=== PATIENT | female | born 1940 | race Caucasian/White ===

== ENCOUNTER 2022-12-13 14:24 | Emergency (ER) | payer MEDICARE, MEDICAID, SELFPAY ==
[2022-12-13 14:44] VITALS: BP 103/57; PULSE 73; RESP 16; TEMP 36.9; O2SAT 97; BMI 36.1
--- NOTE | 2022-12-13 17:19 | ED.GENADUL1 ---
HPI - General Adult General Stated complaint: constipation Time Seen by Provider: 12/13/22 17:07 Source: patient Mode of arrival: Wheelchair Limitations: no limitations History of Present Illness HPI narrative: Patient is a 82-year-old female who is here because a constipation for the past 4 days. Patient is doing nothing to help herself at home with constipation. Patient has no abdominal pain, pressure. Patient has no rectal pressure or pain. Patient has not had a bowel movement in 4 days. Patient states that she has been sitting on the toilet, using a hair clip to try and take out stool. Patient was told to absolutely not and never do that again. Patient was told that she could cut her rupture or vesicles, the anus and cause a significant amount of bleeding and potential . Patient was told that she can use fleets enemas, but did not use metal objects to help Dig out her stool Patient has no fever or chills. No chest pain or shortness of breath. No abdominal distention. No urinary complaints. Patient is literally here because she wants me to disimpact her when she has no pain to the rectal vault. Patient has multiple stool softeners at home to use and she is not using them for unknown reason. She knows that she should be hydrating and using prune juice and apple juice but does not. There is no indication for me to disimpact this patient, and this was told to her During HPI. . All systems are negative except as noted/marked. All systems reviewed and otherwise negative. . Nurses note and vital signs reviewed and patient is not hypoxic. General: The patient appears well and in no apparent distress. Patient is resting comfortably on cart. Patient is not toxic, lethargic, or listless Skin: Warm, dry, no pallor noted. There is no rash noted. No petechiae, purpura. Head: Normocephalic, atraumatic Eye: Normal conjunctiva, no drainage, EOMI. PERRL Ears, Nose, Mouth, and Throat: oral mucosa is moist. Cardiovascular: Regular Rate and Rhythm, no murmur, gallop, rub Respiratory: Patient is in no distress, no accessory muscle use, lungs are clear to auscultation, no wheezing, rales or rhonchi Back: non-tender, no CVA tenderness bilaterally to percussion. No CT LS midline pain GI: soft, obese, no tenderness to palpation, no masses appreciated. No rebound, guarding, or rigidity noted. No flank pain bilateral, No distention. Musculoskeletal: Patient has full range of motion of all of the extremities, no motor, sensory, or focal neurological deficits Neurological: A&O x3, normal speech Psychiatric: Cooperative Related Data Home Medications Medication Instructions Recorded Confirmed amlodipine 5 mg tablet 5 mg PO DAILY 12/13/22 12/13/22 levothyroxine 88 mcg tablet 88 mcg PO QDAY 12/13/22 12/13/22 simvastatin 20 mg tablet 20 mg PO DAILY 12/13/22 12/13/22 Allergies Allergy/AdvReac Type Severity Reaction Status Date / Time No Known Drug Allergies Allergy Verified 12/13/22 14:44 PFSH PFS Social History Smoking status: Never smoker Exam Constitutional Vital Signs, click to edit/add: Last Vital Signs Temp 98.4 F 12/13/22 14:44 Pulse 73 12/13/22 14:44 Resp 16 12/13/22 14:44 BP 103/57 12/13/22 14:44 Pulse Ox 97 12/13/22 14:44 O2 Del Method Room Air 12/13/22 14:44 Course Vital Signs Vital signs: Vital Signs Temperature 98.4 F 12/13/22 14:44 Pulse Rate 73 12/13/22 14:44 Respiratory Rate 16 12/13/22 14:44 Blood Pressure 103/57 12/13/22 14:44 Pulse Oximetry 97 12/13/22 14:44 Oxygen Delivery Method Room Air 12/13/22 14:44 Temperature 98.4 F 12/13/22 14:44 Pulse Rate 73 12/13/22 14:44 Respiratory Rate 16 12/13/22 14:44 Blood Pressure 103/57 12/13/22 14:44 Pulse Oximetry 97 12/13/22 14:44 Oxygen Delivery Method Room Air 12/13/22 14:44 Medical Decision Making MDM Narrative Medical decision making narrative: Patient's abdominal x-ray shows moderate stool burning, no free air, air-fluid levels, or obstruction. Patient does not have a significant amount of stool in the rectal vault. Patient was educated at length on increasing fluids, using stool softeners at home that she already hasthat she should be doing. Patient was educated there is no indication emergently to try to disimpact her or do a soapsuds enema because she has no pain, no rectal pain or pressure. Patient then asked me if she wants me for her to lie and tell me that she has pain to that we will disimpact her or enema her. I told the patient has a knot, explained to her emergencies in the appropriate use of the emergency room. Patient is told that she can was return but there is no indication to perform any emergent procedure on her. Patient wheeze MiraLAX twice a day and one or 2 bottles of mineral oil or magnesium citrate. Patient is use medication she has at home. Patient understands this clearly, no questions at discharge. Discharge Plan Discharge Clinical Impression: Constipation Patient Disposition: Home, Self-Care Condition: Good Prescriptions / Home Meds: No Action levothyroxine 88 mcg tablet 88 mcg PO QDAY amlodipine 5 mg tablet 5 mg PO DAILY simvastatin 20 mg tablet 20 mg PO DAILY Instructions: Constipation (ED) Additional Instructions: You have multiple [id number] products to use, you need to use them for constipation. For the next 2 or 3 days, drink MiraLAX twice a day, use one or 2 bottles of either of magnesium citrate or mineral oil daily to help with bowel movements. Use fleets enemas daily if needed. After you have good relief of your bowels, start using MiraLAX every other day, increase fluids, help maintain soft stool so they do not have symptoms of constipation. You have no emergent condition or reason to try to disimpact you or receive enema. You need to do daily treatments at home to avoid constipation in the future Stand Alone Forms: Portal Instructions Referrals: CATERINA BAKER [Primary Care Provider] - 1 week Discharge Date/Time: 12/13/22 19:06
--- NOTE | 2022-12-13 17:21 | XR_ITS ---
The [address] [address] Patient Name: GOGO CAREY MRN: [id number] date: 1940 Sex: F Assigned Patient Location: ER Current Patient Location: ED.MAIN Accession/Order Number: [id number] Exam Date: 12/13/2022 17:31 Report Date: 12/13/2022 18:34 At the request of: JUAN C HARVEY Procedure: XR abdomen min 2V EXAM: XR abdomen min 2V HISTORY: constipation COMPARISON: None. TECHNIQUE: Abdominal X-ray, 1 view FINDINGS: Support devices: None. Bowel: Unremarkable bowel gas pattern. No bowel dilatation. Stool is seen throughout the colon, representing constipation. Additional findings: None. XR/XR abdomen min 2V IMPRESSION: No acute abnormality on radiographic exam. Constipation. Electronically authenticated by: NANETTE WILLIAM Date: 12/13/2022 18:34
== END 2022-12-13 19:06 | disposition home or self-care (01) ==
PROVIDERS: Emergency Provider Emergency Medicine; PCP Nurse Practitioner Family
DX: K59.00 Constipation, unspecified (principal); Z79.899 Other long term (current) drug therapy; Z79.890 Hormone replacement therapy
CPT/HCPCS: 74019; 99283

== ENCOUNTER 2023-03-22 15:09 | Emergency (ER) | payer MEDICARE, MEDICAID, SELFPAY ==
[2023-03-22 15:19] VITALS: BP 139/94; PULSE 73; RESP 18; TEMP 36.4; O2SAT 96; BMI 33.2
--- NOTE | 2023-03-22 15:26 | PC.NURSE ---
RED NON-RAISED RASH TO TORSO AND BUE THAT IS ITCHY. PT STATES HAS HAD THIS RASH FOR 1 YEAR AND WAS PUT ON A PILL BY HER PCP 1 MONTH AGO FOR RASH BUT THE PILL IS NOT HELPING
--- NOTE | 2023-03-22 15:31 | ED.SKABFB1 ---
HPI - Skin/Abscess/Foreign Bdy General Chief complaint: Skin/Abscess/Foreign Body Stated complaint: rash Time Seen by Provider: 03/22/23 15:15 Source: patient Mode of arrival: Wheelchair Limitations: no limitations History of Present Illness HPI narrative: patient is an 82-year-old female who presents to the emergency department for a one year history of rash. Patient states initially the rash began on her legs, she currently complains mostly of rash to the trunk, abdomen, groin. She was seen by her PCP one month ago for this rash and was prescribed antihistamines for itching. She presents to the Emergency Room today because she states she cannot take the rash any longer, she takes trazodone to help her sleep but states she is having difficulty sleeping due to the itching. There has been no fevers, drainage from the rash. She has no other focal medical complaints. Related Data Home Medications Medication Instructions Recorded Confirmed amlodipine 5 mg tablet 5 mg PO DAILY 12/13/22 12/13/22 levothyroxine 88 mcg tablet 88 mcg PO QDAY 12/13/22 12/13/22 simvastatin 20 mg tablet 20 mg PO DAILY 12/13/22 12/13/22 Previous Rx's Medication Instructions Recorded permethrin 5 % topical cream 1 applic topical ONCE 1 dose #60 03/22/23 grams prednisone 20 mg tablet See Rx Instructions .Route 03/22/23 .COMPLEX #12 tabs Allergies Allergy/AdvReac Type Severity Reaction Status Date / Time No Known Drug Allergies Allergy Verified 03/22/23 15:19 Review of Systems ROS Constitutional Denies: fever or chills Cardiovascular Denies: chest pain Respiratory Denies: shortness of breath or cough Gastrointestinal Denies: nausea or vomiting Musculoskeletal Denies: back pain Integumentary/Breast Reports: rash and itching Neurological Denies: headache Allergic/Immunologic Denies: hives PFSH PFS Social History Smoking status: Never smoker Exam Narrative Exam Narrative: Gen.: Awake, alert, in no distress Head: Normocephalic, atraumatic ENT: Moist mucous membranes Respiratory: No respiratory distress Extremities: Moves extremities equally Psych: Normal mood and affect Neuro: No focal neuro deficit Skin: Warm, dry, excoriated rash noted over the trunk, abdomen, back. No areas of abscess, drainage or concern for cellulitis. No vesicles or crusting, no petechiae or purpura. No extension of the rash to the palms of the hands, mucous membranes. Constitutional Vital Signs, click to edit/add: Last Vital Signs Temp 97.5 F L 03/22/23 15:19 Pulse 73 03/22/23 15:19 Resp 18 03/22/23 15:19 BP 139/94 H 03/22/23 15:19 Pulse Ox 96 03/22/23 15:19 O2 Del Method Room Air 03/22/23 15:19 Course Vital Signs Vital signs: Vital Signs Temperature 97.5 F L 03/22/23 15:19 Pulse Rate 73 03/22/23 15:19 Respiratory Rate 18 03/22/23 15:19 Blood Pressure 139/94 H 03/22/23 15:19 Pulse Oximetry 96 03/22/23 15:19 Oxygen Delivery Method Room Air 03/22/23 15:19 Temperature 97.5 F L 03/22/23 15:19 Pulse Rate 73 03/22/23 15:19 Respiratory Rate 18 03/22/23 15:19 Blood Pressure 139/94 H 03/22/23 15:19 Pulse Oximetry 96 03/22/23 15:19 Oxygen Delivery Method Room Air 03/22/23 15:19 MDM - Skin/Abscess/Foreign Bdy MDM Narrative Medical decision making narrative: patient with an intensely pruritic rash for one year that is excoriated over the trunk, consistent with scabies. There is no evidence of secondary infection. Patient started on prednisone, permethrin. Continue hydroxyzine that was prescribed by PCP and return to the Emergency Room if symptoms change or worsen. Vital signs unremarkable. No indication for antibiotics at this time. Medical Records Attestation: I reviewed the patient's medical records. Discharge Plan Discharge Chief Complaint: Skin/Abscess/Foreign Body Clinical Impression: Skin rash Patient Disposition: Home, Self-Care Time of Disposition Decision: 15:29 Condition: Good Mode of Transportation: Private Vehicle Prescriptions / Home Meds: New prednisone 20 mg tablet See Rx Instructions .ROUTE .COMPLEX Qty: 12 0RF Rx Instructions: 3 tabs daily for 2 days, then 2 tabs daily for 2 days, then 1 tab daily for 2 days permethrin 5 % cream 1 applic topical ONCE Qty: 60 0RF Rx Instructions: Apply to skin and wash off after 8-10 hours No Action levothyroxine 88 mcg tablet 88 mcg PO QDAY amlodipine 5 mg tablet 5 mg PO DAILY simvastatin 20 mg tablet 20 mg PO DAILY Instructions: Acute Rash (ED) Stand Alone Forms: Portal Instructions Referrals: CATERINA BAKER [Primary Care Provider] - 1 week Discharge Date/Time: 03/22/23 15:56
[2023-03-22] MEDS: METHYLPREDNISOLONE SOD SUCC PF 125 MG/2 ML VIAL IM (15:51)
== END 2023-03-22 15:56 | disposition home or self-care (01) ==
PROVIDERS: Emergency Provider Emergency Medicine; PCP Nurse Practitioner Family
DX: R21 Rash and other nonspecific skin eruption (principal); Z79.899 Other long term (current) drug therapy; Z79.890 Hormone replacement therapy
CPT/HCPCS: 96372; 99284; J2930

== ENCOUNTER 2023-06-12 13:52 | Outpatient (OUT) | payer MEDICARE, MEDICAID, SELFPAY ==
[2023-06-12 15:12] LABS: Free T4 0.52 ng/dL (0.76-1.46)
== END 2023-06-12 13:53 | disposition home or self-care (01) ==
LOC: LAB 13:54
PROVIDERS: PCP Nurse Practitioner Family; Visit Provider Nurse Practitioner Family
DX: R94.6 Abnormal results of thyroid function studies (principal)
CPT/HCPCS: 36415; 84439; 84443

== ENCOUNTER 2023-08-04 13:11 | Outpatient (OUT) | payer MEDICARE, MEDICAID, SELFPAY ==
[2023-08-04 15:02] LABS: Free T4 0.73 ng/dL (0.76-1.46)
[2023-08-04 15:34] LABS: Free T3 1.67 pg/mL (2.18-3.98); Thyroid Stimulating Hormone 10.639 uIU/mL (0.358-3.740)
== END 2023-08-04 13:12 | disposition home or self-care (01) ==
LOC: LAB 13:14
PROVIDERS: PCP Nurse Practitioner Family; Visit Provider Nurse Practitioner Family
DX: E07.9 Disorder of thyroid, unspecified (principal)
CPT/HCPCS: 36415; 84439; 84443; 84481

== ENCOUNTER 2023-10-24 14:05 | Outpatient (OUT) | payer MEDICARE, MEDICAID, SELFPAY ==
--- OUTSIDE RECORDS SUMMARY | 2023-10-24 14:22 | XMS_ITS | CCD ---
Author Organization [facility] Care Team Providers Care Floatman Name Role Phone PHYSICIAN, DEFAULT Unavailable Unavailable PHYSICIAN, DEFAULT Unavailable Unavailable PHYSICIAN, DEFAULT Unavailable Unavailable PHYSICIAN, DEFAULT Unavailable Unavailable RAMINENI, ROSE K Unavailable Unavailable RAMINENI, ROSE K Unavailable Unavailable UNKNOWN, PHYSICIAN Unavailable Unavailable UNKNOWN, PHYSICIAN Unavailable Unavailable RAMINENI, ROSE K Unavailable Unavailable RAMINENI, ROSE K Unavailable Unavailable UNKNOWN, PHYSICIAN Unavailable Unavailable UNKNOWN, PHYSICIAN Unavailable Unavailable ID Unavailable Unavailable RAMINENI, ROSE K Unavailable Unavailable RAMINENI, ROSE K Unavailable Unavailable RAMINENI, ROSE K Unavailable Unavailable UNKNOWN, PHYSICIAN Unavailable Unavailable UNKNOWN, PHYSICIAN Unavailable Unavailable LAURA Baker Adela Belkys Primary Care Provider LAURA Baker Adelakayley Rizvi Referring Provider MD Lukas Fried Attending Provider [phone] DO Jay Carvajal Emergency Provider ADELA Navarrete Primary Care Unavailable RADHA MUNIZ Admitting Unavailable RADHA MUNIZ Attending Unavailable RADHA MUNIZ Consulting Unavailable LUKAS HENRY Consulting Unavailable OLIVIA, ADELA Admitting Unavailable ADELA BAKER Attending Unavailable ADELA BAKER Consulting Unavailable OLIVIA, ADELA Primary Care Unavailable DR ALISA ORELLANA Attending Unavailable BLANCA MCCORMICK Consulting Unavailab whit BAKER ADELA Primary Care Unavailable DR ALISA ORELLANA Admitting Unavailable HECTOR GONZALEZ Consulting Unavailable LAURA Baker Primary Care Provider DO Juan Henao Emergency Provider LAURA Baker Adela Belkys Primary Care Provider DO Jay Carvajal Emergency Provider DO Juan Bruno Emergency Provider LAURA Baker Adela Belkys Primary Care Provider [phone]( [phone] DO Juan Henao Emergency Provider DO Camille Dennison Emergency Provider MD Carine Montoya Attending Provider [phone] LAURA Baker Adela Belkys Primary Care Provider [phone] MD Ashleigh Jackson Emergency Provider Carine Montoya Admitting Unavailable Carine Montoya Attending Unavailable Olivia, Adela Belkys Primary Care Unavailable Olivia, Adela Belkys Primary Care Unavailable Jay Carvajal Admitting Unavailable Jay Carvajal Attending Unavailable Olivia, Adela Belkys Primary Care Unavailable TuJuan smith Admitting Unavailable Juan Henao Attending Unavailable Olivia, Adela Belkys Primary Care Unavailable Camille Dennison Admitting Unavailable Camille Dennison Attending Unavailable Jay Carvajal Admitting Unavailable Jay Carvajal Attending Unavailable Olivia, Adela Belkys Primary Care Unavailable Olivia, Adela Belkys Primary Care Unavailable Ashleigh Jackson Admitting Unavailable Ashleigh Jackson Attending Unavailable Juan Kay Admitting Unavailable Juan Kay Attending Unavailable Olivia, Adela Belkys Primary Care Unavailable TuJuan smith Admitting Unavailable Juan Henao Attending Unavailable Olivia, Adela Belkys Primary Care Unavailable Allergies Allergy Classification Reported Allergen(s) Allergy Type Date of Onset Reaction(s) Facility (1 source) NO KNOWN DRUG ALLERGIES; Translations: [NO KNOWN DRUG ALLERGIES] Propensity to adverse reactions (disorder) 7 [facility] Repository (1 source) No Known Allergies; Translations: [No Known Allergies] Propensity to adverse reactions (disorder) [facility] Repository (6 sources) oxyCODONE; Translations: [oxycodone] Drug Allergy 7 [facility] (1 source) Acetaminophen / oxyCODONE Drug Allergy [facility] Repository Medications Current Medications Medication Drug Class(es) Dates Sig (Normalized) Sig (Original) amoxicillin 875 mg / clavulanate 125 mg oral tablet (5 sources) Penicillin-class Antibacterial Start: 10-11-2022 take 1 tablet by mouth twice daily Amoxicillin-Pot Clavulanate Active 1 TAB PO Twice daily October 10, 2022 11:00pm docusate sodium 100 mg oral capsule (7 sources) Start: 08-18-2022 take 1 capsule by mouth twice daily Docusate Sodium (Colace) 100 mg capsule Active 100 MG PO Twice daily 14 June 30, 2023 12:00am DULoxetine 60 mg delayed release oral capsule (7 sources) Serotonin and Norepinephrine Reuptake Inhibitor Start: 01-20-2017 take 60 mg by mouth once daily Duloxetine Active 60 MG PO Daily January 19, 2017 11:00pm hydrOXYzine hydrochloride 25 mg oral tablet (3 sources) Antihistamine Start: 05-07-2023 take 25 mg by mouth every eight hours Hydroxyzine Hcl Active 25 MG PO Q8H May 07, 2023 12:00am levothyroxine sodium 0.088 mg oral tablet (7 sources) l-Thyroxine Start: 01-20-2017 take 88 ug by mouth once daily Levothyroxine Active 88 MCG PO Daily January 19, 2017 11:00pm meloxicam 15 mg oral tablet (7 sources) Nonsteroidal Anti-inflammatory Drug Start: 01-20-2017 take 15 mg by mouth once daily Meloxicam Active 15 MG PO Daily January 19, 2017 11:00pm Mineral Oil (4 sources) Start: 12-16-2022 take 1 mL by mouth once daily Mineral Oil Active 15 ML PO Daily 1200 December 15, 2022 11:00pm Start: 12-16-2022 take 1 mL by mouth once daily Mineral Oil Active 15 ML PO Daily 1200 December 16, 2022 12:00am polyethylene glycol 3350 07116 mg powder for oral solution (17 sources) Osmotic Laxative Start: 08-18-2022 Polyethylene Glycol 3350 (Miralax) 17 gram powder in packet Active 17 GM PO Daily 30 May 07, 2023 12:00am predniSONE 20 mg oral tablet (7 sources) Start: 02-01-2017 take 60 mg by mouth once daily at mealtime Prednisone Active 60 MG PO Daily 15 January 31, 2017 11:00pm administer with food or milk Psyllium Husk (Metamucil) 0.4 gram capsule (6 sources) Start: 08-18-2022 Psyllium Husk (Metamucil) 0.4 gram capsule Active 0.4 GM PO Daily August 17, 2022 11:00pm Start: 08-18-2022 Psyllium Husk (Metamucil) 0.4 gram capsule Active 0.4 GM PO Daily August 18, 2022 12:00am Sennosides (Senna) 8.6 mg capsule (1 source) Start: 06-30-2023 take 1 capsule by mouth twice daily Sennosides (Senna) 8.6 mg capsule Active 8.6 MG PO Twice daily 22 11June 30, 2023 12:00am simvastatin 40 mg oral tablet (7 sources) HMG-CoA Reductase Inhibitor Start: 01-20-2017 take 40 mg by mouth once daily Simvastatin Active 40 MG PO Daily January 19, 2017 11:00pm traMADol hydrochloride 50 mg oral tablet (7 sources) Opioid Agonist Start: 01-20-2017 Tramadol Activ e 0.5 TAB PO EVERY 1-4 HOURS January 19, 2017 11:00pm Problems Active Problems Problem Classification Problem Date Documented Da te Episodic/Chronic Abdominal pain (1 source) Unspecified abdominal pain; Translations: [Unspecified abdominal pain] Onset: 07-18-2023 Episodic Anxiety disorders (3 sources) Anxiety; Translations: [Anxiety disorder, unspecified] 05-07-2023 Chronic Disorders of lipid metabolism (1 source) Hyperlipidemia, unspecified; Translations: [HYPERLIPIDEMIA UNSPECIFIED] Onset: 10-04-2021 Chronic Essential hypertension (1 source) Essential (primary) hypertension; Translations: [ESSENTIAL (PRIMARY) HYPERTENSION] Onset: 01-15-2017 Chronic Gout and other crystal arthropathies (7 sources) Articular gout; 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, 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 Intestinal obstruction without hernia (11 sources) Fecal impaction; Translations: [Fecal impaction] Onset: 07-22-2022 08-18-2022 Episodic Menopausal disorders (1 source) Hormone replacement therapy; Translations: [HORMONE REPLACEMENT THERAPY] Onset: 09-18-2022 Episodic Osteoarthritis (3 sources) Primary osteoarthritis, right shoulder; Translations: [PRIMARY OSTEOARTHRITIS, RIGHT SHOULDER] Onset: 01-21-2017 Chronic Other aftercare (1 source) Other intermediate (current) drug therapy; Translations: [OTH CAFETERIA HELPER CURRENT DRUG THERAPY] Onset: 09-18-2022 Episodic Other bone disease and musculoskeletal deformities (1 source) Other osteonecrosis, right shoulder; Translations: [OTHER OSTEONECROSIS, RIGHT SHOULDER] Onset: 01-21-2017 Chronic Other connective tissue disease (1 source) Presence of right artificial shoulder joint; Translations: [PRESENCE OF RIGHT ARTIFICIAL SHOULDER JOINT] Onset: 10-01-2017 Chronic Other gastrointestinal disorders (11 sources) Constipation; Translations: [Constipation, unspecified] 08-18-2022 Episodic Other gastrointestinal disorders (3 sources) Chronic constipation; Translations: [Other constipation] 05-07-2023 Episodic Other inflammatory condition of skin (3 sources) Itching ; Translations: [Pruritus, unspecified] 05-07-2023 Episodic Other lower respiratory disease (1 source) Shortness of breath; Translations: [Shortness of breath] Onset: 05-07-2023 Episodic Other skin disorders (3 sources) Eruption; Translations: [Rash and other nonspecific skin eruption] 05-07-2023 Episodic Other skin disorders (1 source) Rash and other nonspecific skin eruption; Translations: [Rash and other nonspecific skin eruption] Onset: 05-28-2023 Episodic Residual codes; unclassified (3 sources) Difficulty sleeping ; Translations: [Sleep disorder, unspecified] 05-07-2023 Episodic Skin and subcutaneous tissue infections (5 sources) Cellulitis; Translations: [Cellulitis, unspecified] 10-11-2022 Episodic Sprains and strains (15 sources) Strain of muscle(s) and tendon(s) of the rotator cuff of right shoulder, subsequent encounter; Translations: [Strain of muscle(s) and tendon(s) of the rotator cuff of right shoulder, initial encounter] Onset: 01-15-2017 01-20-2017 Episodic Unclassified (2 sources) Unknown / UNK(Unknown) Onset: 01-15-2017 Unclassified (1 source) Abrasion of right forearm, initial encounter; Translations: [Abrasion of right forearm, initial encounter] Onset: 10-11-2022 Past or Other Problems Problem Classification Problem Date Documented Da te Episodic/Chronic Deficiency and other anemia (1 source) Anemia, unspecified; Translations: [ANEMIA UNSPECIFIED] Onset: 10-04-2021 Episodic Diabetes mellitus without complication (1 source) Other abnormal glucose; Translations: [OTHER ABNORMAL GLUCOSE] Onset: 10-04-2021 Episodic Other connective tissue disease (1 source) Unspecified rotator cuff tear or rupture of right shoulder, not specified as traumatic; Translations: [UNSP ROTATR-CUFF TEAR/RUPTR OF RIGHT SHOULDER, NOT TRAUMA] Onset: 01-21-2017 Episodic Other gastrointestinal disorders (5 sources) Constipation, unspecified; Translations: [CONSTIPATION UNSPECIFIED] Onset: 09-16-2022 Episodic Thyroid disorders (4 sources) Disorder of thyroid, unspecified; Translations: [DISORDER OF THYROID UNSPECIFIED] Onset: 10-01-2021 Episodic Results Test Name Value Interpretation Reference Range Facility XR KUBon 07-19-2023 XR KUB [facility] [place] [address] [place] [address] XRay Report Signed Patient: Gogo Carey MR#: [id number] 05 : 1940 Acct:[id number] Age/Sex: 82 / F ADM Date: 07/18/23 Loc: ER Room: Type: [facility] ER Attending Dr: Copies to: Juan Kay DO Ordering Provider: Juan Kay DO Date of Service: 07/18/23 XR/XR KUB: Abdominal Pain KUB: COMPARISON: 03/02/2023 CLINICAL DATA: Constipation. Supine views of the abdomen and pelvis were obtained. There is air within the stomach. There is air and moderate stool within the colon. No dilated small bowel loops are present. No soft tissue masses are seen. There is reverse S-shaped scoliotic curvature with degenerative changes of the spine. There is sclerosis at the SI joints. XR/XR KUB IMPRESSION: MODERATE COLONIC STOOL COMPATIBLE WITH CONSTIPATION. Impression dictated by: Noelle Pagan M.D.07/19/2023 8:14 AM Dictation Location: [place] [address] Transcribed By: [facility] 07/19/23813 Dictated By: Noelle Pagan MD 07/19/23811 Signed By: 07/19/23813 Normal [facility] Complete Blood Count Auto Di ffon 07-18-2023 Basophils (Bld) [#/Vol] 0.0 10*3/uL Normal 0.0-0.2 [facility] Comment on above: Result Comment: PERF ORMED BY: [place] [address] PATHOLOGIST TERRAZZO TILE MAKER FELICITAS BRINK M.D. Performed By: #### C BC #### [address] Basophils/100 WBC (Bld) 0.3 % Normal . [facility] Comment on above: Performed By: #### C BC #### [address] Eosinophils (Bld) [#/Vol] 0.1 10*3/uL Normal 0.0-0.45 [facility] Comment on above: Performed By: #### C BC #### [address] Eosinophils/100 WBC (Bld) 1.9 % Normal . [facility] Comment on above: Performed By: #### C BC #### [address] Erythrocyte distribution width (RBC) [Ratio] 14.1 % Normal 11.9-15.3 [facility] Comment on above: Performed By: #### C BC #### [address] Hematocrit (Bld) [Volume fraction] 44.7 % Normal 34.0-46.4 [facility] Comment on above: Performed By: #### C BC #### [address] Hemoglobin (Bld) [Mass/Vol] 14.9 g/dL Normal 11.8-15.4 [facility] Comment on above: Performed By: #### C BC #### [address] Lymphocytes (Bld) [#/Vol] 1.3 10*3/uL Normal 1.00-4.8 [facility] Comment on above: Performed By: #### C BC #### [place] [address] [place] Lymphocytes/100 WBC (Bld) 18.7 % Normal . [facility] Comment on above: Performed By: #### C BC #### [facility] [address] MCH (RBC) [Entitic mass] 30.2 pg Normal 24.7-34.3 [facility] Comment on above: Performed By: #### C BC #### [facility] [address] MCV (RBC) [Entitic vol] 90.6 fL Normal 80-100 [facility] Comment on above: Performed By: #### C BC #### [address] Mean Corpuscular HGB Conc 33.3 g/dL Normal 32.0-35.0 [facility] Comment on above: Performed By: #### C BC #### [address] Monocytes (Bld) [#/Vol] 0.6 10*3/uL Normal 0.0-0.8 [facility] Comment on above: Performed By: #### C BC #### [address] Monocytes/100 WBC (Bld) 17.30 % Normal 0.00-20.00 [facility] Comment on above: Performed By: #### C BC #### [address] Monocytes/100 WBC (Bld) 8.5 % Normal . [facility] Comment on above: Performed By: #### C BC #### [place] [address] [place] Neutrophils (Bld) [#/Vol] 4.9 10*3/uL Normal 1.8-7.7 [facility] Comment on above: Performed By: #### C BC #### [address] Neutrophils/100 WBC (Bld) 70.6 % Normal . [facility] Comment on above: Performed By: #### C BC #### [facility] [address] NRBC% 0.0 /100{WBC} Normal 0-0.5 [facility] Comment on above: Performed By: #### C BC #### [facility] [address] Platelet mean volume (Bld) [Entitic vol] 8.3 fL Normal 6.3-10.7 [facility] Comment on above: Performed By: #### C BC #### [facility] [address] Platelets (Bld) [#/Vol] 289 10*3/uL Normal 150-450 [facility] Comment on above: Performed By: #### C BC #### [facility] [address] RBC (Bld) [#/Vol] 4.93 10*6/uL Normal 3.60-5.00 [facility] Comment on above: Performed By: #### C BC #### [address] WBC (Bld) [#/Vol] 6.9 10*3/uL Normal 3.8-11.6 [facility] Comment on above: Performed By: #### C BC #### [address] Comprehensive Metabolic Pane jeremiah 07-18-2023 Albumin [Mass/Vol] 4.1 g/dL Normal 3.5-5.7 [facility] Comment on above: Performed By: #### C MP, LIPASE ####[address] Albumin/Globulin [Mass ratio] 1.2 {ratio} Normal [facility] Comment on above: Performed By: #### C MP, LIPASE ####[address] ALP [Catalytic activity/Vol] 68 U/L Normal 34-104 [facility] Comment on above: Performed By: #### C MP, LIPASE ####[facility] [place] [address] [facility] ALT [Catalytic activity/Vol] 10 U/L Normal 7-52 [facility] Comment on above: Performed By: #### C MP, LIPASE ####[facility] [place] [address] [facility] Anion gap [Moles/Vol] 10.2 mmol/L Normal 6.0-15.0 [facility] Comment on above: Performed By: #### C MP, LIPASE ####[place] [address] [place] [address] [facility] AST [Catalytic activity/Vol] 16 U/L Normal 13-39 [facility] Comment on above: Performed By: #### C MP, LIPASE ####[place] [address] [place] [address] [facility] Bilirubin [Mass/Vol] 0.5 mg/dL Normal 0.3-1.0 [facility] Comment on above: Performed By: #### C MP, LIPASE ####[place] [address] [place] [address] [facility] Calcium [Mass/Vol] 9.5 mg/dL Normal 8.6-10.3 [facility] Comment on above: Performed By: #### C MP, LIPASE ####[address] [address] [facility] Chloride [Moles/Vol] 106 mmol/L Normal 98-107 [facility] Comment on above: Performed By: #### C MP, LIPASE ####[place] [address] [place] [address] [facility] CO2 [Moles/Vol] 27.0 mmol/L Normal 21.0-31.0 [facility] Comment on above: Performed By: #### C MP, LIPASE ####[address] [address] [facility] Creatinine [Mass/Vol] 0.95 mg/dL Normal 0.60-1.20 [facility] Comment on above: Performed By: #### C MP, LIPASE ####[address] [place] [address] [facility] Creatinine Clr Calc Pharmacy 43.89 [facility] Comment on above: Performed By: #### C MP, LIPASE ####[place] [id number] [facility] GFR/1.73 sq M.predicted MDRD (S/P/Bld) [Vol rate/Area] mL/min/{1.73_m2} [facility] Comment on above: Performed By: #### C MP, LIPASE ####[address] Globulin (S) [Mass/Vol] 3.3 g/dL [facility] Comment on above: Performed By: #### C MP, LIPASE ####[address] Glucose [Mass/Vol] 114 mg/dL High 70-100 [facility] Comment on above: Result Comment: [facility] Glucose Reference Range is dependent on time and content of last meal. Glucose of more than 200 mg/dL in a nonstressed, ambulatory subject supports the diagnosis of Diabetes Mellitus. ADA recommended reference range Performed By: #### C MP, LIPASE ####[place] [id number] [facility] Potassium [Moles/Vol] 4.2 mmol/L Normal 3.5-5.1 [facility] Comment on above: Performed By: #### C MP, LIPASE ####[place] [id number] [facility] Protein [Mass/Vol] 7.4 g/dL Normal 6.4-8.9 [facility] Comment on above: Performed By: #### C MP, LIPASE ####[place] [id number] [facility] Sodium [Moles/Vol] 139 mmol/L Normal 136-145 [facility] Comment on above: Performed By: #### C MP, LIPASE ####[address] Urea nitrogen [Mass/Vol] 15 mg/dL Normal 7-25 [facility] Comment on above: Performed By: #### C MP, LIPASE ####[facility] [id number] [place] [id number] [facility] ECG 12 lead ECGon 07-18-2023 ECG 12 lead ECG [facility] [place] [address] [place] [address] Electrocardiograph Report Signed Patient: Gogo Carey MR#: [id number] 05 : 1940 Acct:[id number] Age/Sex: 82 / F ADM Date: 07/18/23 Loc: ER Room: Type: [facility] ER Attending Dr: Ordering Provider: Brittany Agustin APRN Date of Service: 07/18/2301/02/1602 ECG/ECG 12 lead ECG: Abdominal Pain Copies to: Test Reason : Blood Pressure : / mmHG Vent. Rate : 070 BPM Atrial Rate : 070 BPM P-R Int : 166 ms QRS Dur : 090 ms QT Int : 422 ms P-R-T Axes : -12 -84 -06 degrees QTc Int : 455 ms Sinus rhythm with marked sinus arrhythmia Left axis deviation RSR' or QR pattern in V1 suggests right ventricular conduction delay Possible Lateral infarct (cited on or before 18-JUL-2023) Inferior infarct (cited on or before 18-JUL-2023) Abnormal ECG When compared with ECG of 07-MAY-2023 15:47, premature ventricular complexes are no longer present Vent. rate has decreased BY 34 BPM Nonspecific T wave abnormality, improved in Anterior leads Confirmed by JUAN KAY DO ([id number]) on 07/19/2023 1:53:48 AM Referred By: Electronically Signed By:JUAN KAY DO Transcribed By: MUS Signed By Juan Kay DO 07/18 0154 Normal [facility] Lipaseon 07-18-2023 Lipase [Catalytic activity/Vol] 37.0 U/L Normal 11.0-82.0 [facility] Comment on above: Result Comment: PERF ORMED BY: [place] [address] PATHOLOGIST TERRAZZO TILE MAKER FELICITAS BRINK M.D. Performed By: #### C MP, LIPASE ####[facility] [id number] [place] [address] [place] Alanine aminotransferase [En zymatic activity/volume] in Serum or PlasmaOrdered By: Ashleigh Jackson on 06-30-2023 ALT [Catalytic activity/Vol] 11 U/L Normal 7-52 [facility] Comment on above: Performed By: #### C MP, LIPASE #### [facility] [address] [place] [address] [place] Albumin [Mass/volume] in Ser um or Plasma by Bromocresol green (BCG) dye binding methoOrdered By: Ashleigh Jackson on 06-30-2023 Albumin BCG dye [Mass/Vol] 4.0 g/dL 3.5-5.7 [facility] Alkaline phosphatase [Enzyma tic activity/volume] in Serum or PlasmaOrdered By: Ashleigh Jackson on 06-30-2023 ALP [Catalytic activity/Vol] 67 U/L Normal 34-104 [facility] Comment on above: Performed By: #### C MP, LIPASE #### [facility] [address] [place] [address] [place] Aspartate aminotransferase [ Enzymatic activity/volume] in Serum or PlasmaOrdered By: Ashleigh Jackson on 06-30-2023 AST [Catalytic activity/Vol] 19 U/L 13-39 [facility] Basophils Auto (Bld) [#/Vol] Ordered By: Ashleigh Jackson on 06-30-2023 Basophils (Bld) [#/Vol] 0.0 10*3/uL 0.0-0.2 [facility] Basophils/100 WBC Auto (Bld) Ordered By: Ashleigh Jackson on 06-30-2023 Basophils/100 WBC (Bld) 0.5 % . [facility] Bilirubin Test strip Ql (U)O rdered By: Ashleigh Jackson on 06-30-2023 Bilirubin Ql (U) Negative Negative [facility] Bilirubin.total [Mass/volume ] in Serum or PlasmaOrdered By: Ashleigh Jackson on 06-30-2023 Bilirubin [Mass/Vol] 0.6 mg/dL Normal 0.3-1.0 [facility] Comment on above: Performed By: #### C MP, LIPASE #### [facility] [address] [place] [id number] [facility] CT abdomen pelvis w conon CT abdomen pelvis w con [facility] [place] [address] [place] [address] CT Scan Report Signed Patient: Gogo Carey MR#: [id number] 05 : 1940 Acct:[id number] Age/Sex: 82 / F ADM Date: 06/30/23 Loc: ER Room: Type: [facility] ER Attending Dr: Copies to: Ashleigh Jackson MD Ordering Provider: Ashleigh Jackson MD Date of Service: 06/30/23 CT/CT abdomen pelvis w con: L sided tenderness, r/o SBO CT Abdomen and Pelvis withcontrast TECHNIQUE: Axial imaging with 2-D reconstruction.90 cc of Isovue-300. The CT exam was performed using one or more the following dose reduction techniques: Automated exposure control, adjustment of the MA and/or Kv according to patient size, or use of the iterative reconstruction technique. COMPARISON: None History: Constipation for 3 1/2 weeks. LIMITATIONS: None LOWER THORAX small pericardial effusion. Unremarkable lung bases. LIVER: Mild hepatic steatosis. No focal hepatic lesion. GALLBLADDER: No gallbladder abnormality identified. BILE DUCTS: No dilatation SPLEEN: Unremarkable PANCREAS: Unremarkable ADRENAL GLANDS: Unremarkable KIDNEYS:Unremarkable AORTA: No abdominal aortic aneurysm identified. RETROPERITONEUM: No significant retroperitoneal abnormalities identified. MESENTERY:Unremarkable SMALL BOWEL: The small bowel loops are nondistended. APPENDIX: The appendix is normal. COLON: Large burden of stool throughout colon. No obstruction. No wall thickening. No adjacent inflammation. Colonic diverticulosis. URINARY BLADDER: Urinary bladder is unremarkable. REPRODUCTIVE SYSTEM: The uterus is absent. PNEUMOPERITONEUM: None PERITONEAL FLUID:None BONY STRUCTURES: Extensive lumbar degeneration. ABDOMINAL WALL: Unremarkable CT/CT abdomen pelvis w con IMPRESSION: Large amount stool throughout colon. Consider constipation. No acute findings. Impression dictated by: Huang Ng M.D.06/30/2023 7:05 PM Dictation Location: [place] [address] Transcribed By: [facility] 06/30/231904 Dictated By: Huang Ng DO 06/30/231899 Signed By: 06/30/231904 Normal [facility] Calcium [Mass/volume] in Ser um or PlasmaOrdered By: Ashleigh Jackson on 06-30-2023 Calcium [Mass/Vol] 9.6 mg/dL Normal 8.6-10.3 [facility] Comment on above: Performed By: #### C MP, LIPASE #### [facility] [address] Carbon dioxide, total [Moles /volume] in Serum or PlasmaOrdered By: Ashleigh Jackson on 06-30-2023 CO2 [Moles/Vol] 22.0 mmol/L Normal 21.0-31.0 [facility] Comment on above: Performed By: #### C MP, LIPASE #### [address] Chloride [Moles/volume] in S marques or PlasmaOrdered By: Ashleigh Jackson on 06-30-2023 Chloride [Moles/Vol] 107 mmol/L Normal 98-107 [facility] Comment on above: Performed By: #### C MP, LIPASE #### [address] Color Auto (U)Ordered By: Stephanie Jackson on 06-30-2023 Color (U) Yellow Yellow [facility] Complete Blood Count Auto Di ffon 06-30-2023 Basophils (Bld) [#/Vol] 0.0 10*3/uL Normal 0.0-0.2 [facility] Comment on above: Order Comment: REDRA W Result Comment: PERF ORMED BY: [place] [address] PATHOLOGIST TERRAZZO TILE MAKER FELICITAS BRINK M.D. Performed By: #### C BC ####[place] [address] [place] Basophils/100 WBC (Bld) 0.5 % Normal . [facility] Comment on above: Order Comment: REDRA W Performed By: #### C BC ####[place] [address] [place] Eosinophils (Bld) [#/Vol] 0.1 10*3/uL Normal 0.0-0.45 [facility] Comment on above: Order Comment: REDRA W Performed By: #### C BC ####[place] [id number] [facility] Eosinophils/100 WBC (Bld) 2.0 % Normal . [facility] Comment on above: Order Comment: REDRA W Performed By: #### C BC ####[address] Erythrocyte distribution width (RBC) [Ratio] 14.5 % Normal 11.9-15.3 [facility] Comment on above: Order Comment: REDRA W Performed By: #### C BC ####[address] Hematocrit (Bld) [Volume fraction] 41.2 % Normal 34.0-46.4 [facility] Comment on above: Order Comment: REDRA W Performed By: #### C BC ####[address] Hemoglobin (Bld) [Mass/Vol] 13.7 g/dL Normal 11.8-15.4 [facility] Comment on above: Order Comment: REDRA W Performed By: #### C BC ####[place] [id number] [facility] Lymphocytes (Bld) [#/Vol] 1.6 10*3/uL Normal 1.00-4.8 [facility] Comment on above: Order Comment: REDRA W Performed By: #### C BC ####[place] [id number] [facility] Lymphocytes/100 WBC (Bld) 21.3 % Normal . [facility] Comment on above: Order Comment: REDRA W Performed By: #### C BC ####[place] [id number] [facility] MCH (RBC) [Entitic mass] 29.9 pg Normal 24.7-34.3 [facility] Comment on above: Order Comment: REDRA W Performed By: #### C BC ####[place] [id number] [facility] MCV (RBC) [Entitic vol] 90.0 fL Normal 80-100 [facility] Comment on above: Order Comment: REDRA W Performed By: #### C BC ####[place] [id number] [facility] Mean Corpuscular HGB Conc 33.3 g/dL Normal 32.0-35.0 [facility] Comment on above: Order Comment: REDRA W Performed By: #### C BC ####[place] [id number] [facility] Monocytes (Bld) [#/Vol] 0.8 10*3/uL Normal 0.0-0.8 [facility] Comment on above: Order Comment: REDRA W Performed By: #### C BC ####[place] [id number] [facility] Monocytes/100 WBC (Bld) 19.27 % Normal 0.00-20.00 [facility] Comment on above: Order Comment: REDRA W Performed By: #### C BC ####[place] [id number] [facility] Monocytes/100 WBC (Bld) 10.4 % Normal . [facility] Comment on above: Order Comment: REDRA W Performed By: #### C BC ####[place] [id number] [facility] Neutrophils (Bld) [#/Vol] 4.8 10*3/uL Normal 1.8-7.7 [facility] Comment on above: Order Comment: REDRA W Performed By: #### C BC ####[place] [id number] [facility] Neutrophils/100 WBC (Bld) 65.8 % Normal . [facility] Comment on above: Order Comment: REDRA W Performed By: #### C BC ####[place] [id number] [facility] NRBC% 0.1 /100{WBC} Normal 0-0.5 [facility] Comment on above: Order Comment: REDRA W Performed By: #### C BC ####[address] Platelet mean volume (Bld) [Entitic vol] 8.1 fL Normal 6.3-10.7 [facility] Comment on above: Order Comment: REDRA W Performed By: #### C BC ####[address] Platelets (Bld) [#/Vol] 304 10*3/uL Normal 150-450 [facility] Comment on above: Order Comment: REDRA W Performed By: #### C BC ####[address] RBC (Bld) [#/Vol] 4.57 10*6/uL Normal 3.60-5.00 [facility] Comment on above: Order Comment: REDRA W Performed By: #### C BC ####[address] WBC (Bld) [#/Vol] 7.4 10*3/uL Normal 3.8-11.6 [facility] Comment on above: Order Comment: REDRA W Performed By: #### C BC ####[address] Comprehensive Metabolic Pane jeremiah 06-30-2023 Albumin [Mass/Vol] 4.0 g/dL Normal 3.5-5.7 [facility] Comment on above: Performed By: #### C MP, LIPASE #### [address] Anion Gap Normal 6.0-15.0 [facility] Comment on above: Result Comment: Spec imen hemolyzed, redraw requested Performed By: #### C MP, LIPASE #### [address] Aspartate Amino Transferase Normal 13-39 [facility] Comment on above: Result Comment: Spec imen hemolyzed, redraw requested Performed By: #### C MP, LIPASE #### [facility] [address] Creatinine Clr Calc Pharmacy 47.58 [facility] Comment on above: Performed By: #### C MP, LIPASE #### [facility] [address] GFR/1.73 sq M.predicted MDRD (S/P/Bld) [Vol rate/Area] mL/min/{1.73_m2} [facility] Comment on above: Performed By: #### C MP, LIPASE #### [facility] [address] Potassium Normal 3.5-5.1 [facility] Comment on above: Result Comment: Spec imen hemolyzed, redraw requested Performed By: #### C MP, LIPASE #### [facility] [address] Creatinine [Mass/volume] in Serum or PlasmaOrdered By: Ashleigh Jackson on 06-30-2023 Creatinine [Mass/Vol] 0.94 mg/dL Normal 0.60-1.20 [facility] Comment on above: Performed By: #### C MP, LIPASE #### [facility] [address] Eosinophils Auto (Bld) [#/Vo l]Ordered By: Ashleigh Jackson on 06-30-2023 Eosinophils (Bld) [#/Vol] 0.1 10*3/uL 0.0-0.45 [facility] Eosinophils/100 WBC Auto (Bl d)Ordered By: Ashleigh Jackson on 06-30-2023 Eosinophils/100 WBC (Bld) 2.0 % . [facility] Erythrocyte distribution wid th Auto (RBC) [Ratio]Ordered By: Ashleigh Jackson on 06-30-2023 Erythrocyte distribution width (RBC) [Ratio] 14.5 % 11.9-15.3 [facility] Glucose [Mass/volume] in Ser um or PlasmaOrdered By: Ashleigh Jackson on 06-30-2023 Glucose [Mass/Vol] 93 mg/dL Normal 70-100 [facility] Comment on above: ADA recommended refe rence rangeRandom Glucose Reference Range is dependent on time and content of last meal. Glucose of more than 200 mg/dL in a nonstressed, ambulatory subject supports the diagnosis of Diabetes Mellitus. Result Comment: [place] Glucose Reference Range is dependent on time and content of last meal. Glucose of more than 200 mg/dL in a nonstressed, ambulatory subject supports the diagnosis of Diabetes Mellitus. ADA recommended reference range Performed By: #### C MP, LIPASE #### [facility] [address] Hematocrit Auto (Bld) [Volum e fraction]Ordered By: Ashleigh Jackson on 06-30-2023 Hematocrit (Bld) [Volume fraction] 41.2 % 34.0-46.4 [facility] Hemoglobin [Mass/volume] in BloodOrdered By: Ashleigh Jackson on 06-30-2023 Hemoglobin (Bld) [Mass/Vol] 13.7 g/dL 11.8-15.4 [facility] Ketones Auto test strip (U) [Mass/Vol]Ordered By: Ashleigh Jackson on 06-30-2023 Ketones (U) [Mass/Vol] Negative Negative [facility] Leukocytes [#/volume] correc ella for nucleated erythrocytes in Blood by Automated counOrdered By: Ashleigh Jackson on 06-30-2023 WBC corrected for nucl RBC Auto (Bld) [#/Vol] 7.4 10*3/uL 3.8-11.6 [facility] Lipase [Enzymatic activity/v olume] in Serum or PlasmaOrdered By: Ashleigh Jackson on 06-30-2023 Lipase [Catalytic activity/Vol] 38.0 U/L Normal 11.0-82.0 [facility] Comment on above: Result Comment: PERF ORMED BY: [facility] [address] [place] [address] PATHOLOGIST TERRAZZO TILE MAKER FELICITAS BRINK M.D. Performed By: #### C MP, LIPASE ####[facility] [id number] Lymphocytes Auto (Bld) [#/Vo l]Ordered By: Ashleigh Jackson on 06-30-2023 Lymphocytes (Bld) [#/Vol] 1.6 10*3/uL 1.00-4.8 [facility] Lymphocytes/100 WBC Auto (Bl d)Ordered By: Ashleigh Jackson on 06-30-2023 Lymphocytes/100 WBC (Bld) 21.3 % . [facility] MCH Auto (RBC) [Entitic mass ]Ordered By: Ashleigh Jackson on 06-30-2023 MCH (RBC) [Entitic mass] 29.9 pg 24.7-34.3 [facility] MCHC Auto (RBC) [Mass/Vol]Or dered By: Ashleigh Jackson on 06-30-2023 MCHC (RBC) [Mass/Vol] 33.3 g/dL 32.0-35.0 [facility] MCV Auto (RBC) [Entitic vol] Ordered By: Ashleigh Jackson on 06-30-2023 MCV (RBC) [Entitic vol] 90.0 fL 80-100 [facility] Monocyte distribution width [Entitic volume] in Blood by AutomatedOrdered By: Ashleigh Jackson on 06-30-2023 Monocyte distribution width Auto (Bld) [Entitic vol] 19.27 % 0.00-20.00 [facility] Monocytes Auto (Bld) [#/Vol] Ordered By: Ashleigh Jackson on 06-30-2023 Monocytes (Bld) [#/Vol] 0.8 10*3/uL 0.0-0.8 [facility] Monocytes/100 WBC Auto (Bld) Ordered By: Ashleigh Jackson on 06-30-2023 Monocytes/100 WBC (Bld) 10.4 % . [facility] Neutrophils Auto (Bld) [#/Vo l]Ordered By: Ashleigh Jackson on 06-30-2023 Neutrophils (Bld) [#/Vol] 4.8 10*3/uL 1.8-7.7 [facility] Neutrophils/100 WBC Auto (Bl d)Ordered By: Ashleigh Jackson on 06-30-2023 Neutrophils/100 WBC (Bld) 65.8 % . [facility] Nitrite Test strip Ql (U)Ord ered By: Ashleigh Jackson on 06-30-2023 Nitrite Ql (U) Negative Negative [facility] No Panel InformationOrdered By: Ashleigh Jackson on 06-30-2023 Estimated GFR (CKD-EPI) > 60.0 mL/Min [facility] Pharmacy Creatinine Clearance (Chem 47.58 [facility] Nucleated erythrocytes [Pres ence] in Blood by Automated countOrdered By: Ashleigh Jackson on 06-30-2023 Nucleated RBC Auto Ql (Bld) 0.1 /100{WBC} 0-0.5 [facility] Platelet mean volume Auto (B ld) [Entitic vol]Ordered By: Ashleigh Jackson on 06-30-2023 Platelet mean volume (Bld) [Entitic vol] 8.1 fL 6.3-10.7 [facility] Platelets Auto (Bld) [#/Vol] Ordered By: Ashleigh Jackson on 06-30-2023 Platelets (Bld) [#/Vol] 304 10*3/uL 150-450 [facility] Potassium [Moles/volume] in Serum or PlasmaOrdered By: Ashleigh Jackson on 06-30-2023 Potassium [Moles/Vol] 4.4 mmol/L 3.5-5.1 [facility] Protein Auto test strip (U) [Mass/Vol]Ordered By: Ashleigh Jackson on 06-30-2023 Protein (U) [Mass/Vol] Negative Negative [facility] Protein [Mass/volume] in Ser um or PlasmaOrdered By: Ashleigh Jackson on 06-30-2023 Protein [Mass/Vol] 6.8 g/dL Normal 6.4-8.9 [facility] Comment on above: Performed By: #### C MP, LIPASE #### [facility] [address] [place] [address] RBC Auto (Bld) [#/Vol]Ordere d By: Ashleigh Jackson on 06-30-2023 RBC (Bld) [#/Vol] 4.57 10*6/uL 3.60-5.00 [facility] Redraw Suri 06-30-2023 AST [Catalytic activity/Vol] 19 U/L Normal 13-39 [facility] Comment on above: Order Comment: Unacc eptable specimen due to HEMOLYSIS. Redraw reordered. Result Comment: PERF ORMED BY: [place] [address] PATHOLOGIST TERRAZZO TILE MAKER FELICITAS BRINK M.D. Performed By: #### R EDRAW AST, REDRAW K ####[address] Redraw Potassiumon Potassium [Moles/Vol] 4.4 mmol/L Normal 3.5-5.1 [facility] Comment on above: Order Comment: Unacc eptable specimen due to HEMOLYSIS. Redraw reordered. Performed By: #### R EDRAW AST, REDRAW K ####[address] Serum globulin measurement b y calculation (mass/volume)Ordered By: Ashleigh Jackson on 06-30-2023 Globulin (S) [Mass/Vol] 2.8 g/dL Normal [facility] Comment on above: Performed By: #### C MP, LIPASE #### [address] Serum or plasma albumin/glob ulin mass ratioOrdered By: Ashleigh Jackson on 06-30-2023 Albumin/Globulin [Mass ratio] 1.4 {ratio} [facility] Comment on above: Performed By: #### C MP, LIPASE #### [address] Serum or plasma anion gap de terminationOrdered By: Ashleigh Jackson on 06-30-2023 Anion gap [Moles/Vol] See comment 6.0-15.0 [facility] Comment on above: Specimen hemolyzed, redraw requested Sodium [Moles/volume] in Ser um or PlasmaOrdered By: Ashleigh Jackson on 06-30-2023 Sodium [Moles/Vol] 137 mmol/L Normal 136-145 [facility] Comment on above: Performed By: #### C MP, LIPASE #### [address] Specific gravity Auto test s trip (U) [Rel density]Ordered By: Ashleigh Jackson on 06-30-2023 Specific gravity (U) [Rel density] 1.018 1.001-1.03 0 [facility] Urea nitrogen [Mass/volume] in Serum or PlasmaOrdered By: Ashleigh Jackson on 06-30-2023 Urea nitrogen [Mass/Vol] 16 mg/dL Normal 7-25 [facility] Comment on above: Performed By: #### C MP, LIPASE #### [facility] [address] [place] [id number] [facility] Urinalysison 06-30-2023 Appearance (U) Clear Normal Clear [facility] Comment on above: Order Comment: Name Collection Type:: Clean-Voided Midstream Performed By: #### U A ####[place] [id number] [facility] Bilirubin,Urine Negative Normal Negative [facility] Comment on above: Order Comment: Name Collection Type:: Clean-Voided Midstream Performed By: #### U A ####[place] [id number] [facility] Color (U) Yellow Normal Yellow [facility] Comment on above: Order Comment: Name Collection Type:: Clean-Voided Midstream Performed By: #### U A ####[place] [id number] [facility] Glucose Ql (U) Normal Normal Normal [facility] Comment on above: Order Comment: Name Collection Type:: Clean-Voided Midstream Performed By: #### U A ####[place] [id number] [facility] Ketones Ql (U) Negative Normal Negative [facility] Comment on above: Order Comment: Name Collection Type:: Clean-Voided Midstream Performed By: #### U A ####[place] [id number] [facility] Leukocyte esterase Test strip Ql (U) Negative Normal Negative [facility] Comment on above: Order Comment: Name Collection Type:: Clean-Voided Midstream Performed By: #### U A ####[place] [id number] [facility] Nitrite,Urine Negative Normal Negative [facility] Comment on above: Order Comment: Name Collection Type:: Clean-Voided Midstream Performed By: #### U A ####[place] [id number] [facility] Occult Blood,Urine Negative Normal Negative [facility] Comment on above: Order Comment: Name Collection Type:: Clean-Voided Midstream Result Comment: PERF ORMED BY: [facility] [address] [place] [id number] PATHOLOGIST TERRAZZO TILE MAKER FELICITAS BRINK M.D. Performed By: #### U A ####[address] [address] [facility] pH (U) 6.0 [pH] Normal 5.0-9.0 [facility] Comment on above: Order Comment: Name Collection Type:: Clean-Voided Midstream Performed By: #### U A ####[place] [id number] [facility] Protein,Urine Negative Normal Negative [facility] Comment on above: Order Comment: Name Collection Type:: Clean-Voided Midstream Performed By: #### U A ####[place] [id number] [facility] Specificy [place],Urine 1.018 Normal 1.001-1.03 0 [facility] Comment on above: Order Comment: Name Collection Type:: Clean-Voided Midstream Performed By: #### U A ####[place] [id number] [facility] Urobilinogen,Urine Normal Normal Normal [facility] Comment on above: Order Comment: Name Collection Type:: Clean-Voided Midstream Performed By: #### U A ####[place] [id number] [facility] Urine clarity by refractomet ry automatedOrdered By: Ashleigh Jackson on 06-30-2023 Clarity Refractometry automated (U) Clear Clear [facility] Urine glucose measurement by automated test strip (mass/volume)Ordered By: Ashleigh Jackson on 06-30-2023 Glucose Auto test strip (U) [Mass/Vol] Normal mg/dL Normal [facility] Urine hemoglobin detection b y automated test stripOrdered By: Ashleigh Jackson on 06-30-2023 Hemoglobin Auto test strip Ql (U) Negative Negative [facility] Urine leukocyte esterase det ection by automated test stripOrdered By: Ashleigh Jackson on 06-30-2023 Leukocyte esterase Auto test strip Ql (U) Negative Negative [facility] Urobilinogen Auto test strip (U) [Mass/Vol]Ordered By: Ashleigh Jackson on 06-30-2023 Urobilinogen (U) [Mass/Vol] Normal mg/dL Normal [facility] WBC Auto (Bld) [#/Vol]Ordere d By: Ashleigh Jackson on 06-30-2023 WBC (Bld) [#/Vol] 7.4 10*3/uL 3.8-11.6 [facility] pH Auto test strip (U)Ordere d By: Ashleigh Jackson on 06-30-2023 pH (U) 6.0 [pH] 5.0-9.0 [facility] Alanine aminotransferase [En zymatic activity/volume] in Serum or PlasmaOrdered By: Carine Montoya on 05-28-2023 ALT [Catalytic activity/Vol] 13 U/L 7-52 [facility] Albumin [Mass/volume] in Ser um or Plasma by Bromocresol green (BCG) dye binding methoOrdered By: Carine Montoya on 05-28-2023 Albumin BCG dye [Mass/Vol] 4.1 g/dL 3.5-5.7 [facility] Alkaline phosphatase [Enzyma tic activity/volume] in Serum or PlasmaOrdered By: Carine Montoya on 05-28-2023 ALP [Catalytic activity/Vol] 76 U/L 34-104 [facility] Aspartate aminotransferase [ Enzymatic activity/volume] in Serum or PlasmaOrdered By: Carine Montoya on 05-28-2023 AST [Catalytic activity/Vol] 20 U/L 13-39 [facility] Basophils Auto (Bld) [#/Vol] Ordered By: Carine Montoya on 05-28-2023 Basophils (Bld) [#/Vol] 0.0 10*3/uL 0.0-0.2 [facility] Basophils/100 WBC Auto (Bld) Ordered By: Carine Montoya on 05-28-2023 Basophils/100 WBC (Bld) 0.5 % . [facility] Bilirubin.total [Mass/volume ] in Serum or PlasmaOrdered By: Carine Montoya on 05-28-2023 Bilirubin [Mass/Vol] 0.7 mg/dL 0.3-1.0 [facility] Calcium [Mass/volume] in Ser um or PlasmaOrdered By: Carine Montoya on 05-28-2023 Calcium [Mass/Vol] 9.5 mg/dL 8.6-10.3 [facility] Carbon dioxide, total [Moles /volume] in Serum or PlasmaOrdered By: Carine Montoya on 05-28-2023 CO2 [Moles/Vol] 26.5 mmol/L 21.0-31.0 [facility] Chloride [Moles/volume] in S marques or PlasmaOrdered By: Carine Montoya on 05-28-2023 Chloride [Moles/Vol] 108 mmol/L 98-107 [facility] Complete Blood Count Auto Di ffon 05-28-2023 Basophils (Bld) [#/Vol] 0.0 10*3/uL Normal 0.0-0.2 [facility] Comment on above: Performed By: #### T SH3, T4F, CBC, CMP, ESR #### [facility] [address] [place] [address] [place] Basophils/100 WBC (Bld) 0.5 % Normal . [facility] Comment on above: Performed By: #### T SH3, T4F, CBC, CMP, ESR #### [facility] [address] [place] [address] [place] Eosinophils (Bld) [#/Vol] 0.2 10*3/uL Normal 0.0-0.45 [facility] Comment on above: Performed By: #### T SH3, T4F, CBC, CMP, ESR #### [facility] [address] [place] [address] [place] Eosinophils/100 WBC (Bld) 3.5 % Normal . [facility] Comment on above: Performed By: #### T SH3, T4F, CBC, CMP, ESR #### [address] Erythrocyte distribution width (RBC) [Ratio] 14.6 % Normal 11.9-15.3 [facility] Comment on above: Performed By: #### T SH3, T4F, CBC, CMP, ESR #### [address] Hematocrit (Bld) [Volume fraction] 41.5 % Normal 34.0-46.4 [facility] Comment on above: Performed By: #### T SH3, T4F, CBC, CMP, ESR #### [address] Hemoglobin (Bld) [Mass/Vol] 13.9 g/dL Normal 11.8-15.4 [facility] Comment on above: Performed By: #### T SH3, T4F, CBC, CMP, ESR #### [address] Lymphocytes (Bld) [#/Vol] 1.4 10*3/uL Normal 1.00-4.8 [facility] Comment on above: Performed By: #### T SH3, T4F, CBC, CMP, ESR #### [address] Lymphocytes/100 WBC (Bld) 24.6 % Normal . [facility] Comment on above: Performed By: #### T SH3, T4F, CBC, CMP, ESR #### [address] MCH (RBC) [Entitic mass] 30.5 pg Normal 24.7-34.3 [facility] Comment on above: Performed By: #### T SH3, T4F, CBC, CMP, ESR #### [address] MCV (RBC) [Entitic vol] 90.8 fL Normal 80-100 [facility] Comment on above: Performed By: #### T SH3, T4F, CBC, CMP, ESR #### [place] [address] Mean Corpuscular HGB Conc 33.6 g/dL Normal 32.0-35.0 [facility] Comment on above: Performed By: #### T SH3, T4F, CBC, CMP, ESR #### [address] Monocytes (Bld) [#/Vol] 0.7 10*3/uL Normal 0.0-0.8 [facility] Comment on above: Performed By: #### T SH3, T4F, CBC, CMP, ESR #### [address] Monocytes/100 WBC (Bld) 12.7 % Normal . [facility] Comment on above: Performed By: #### T SH3, T4F, CBC, CMP, ESR #### [address] Neutrophils (Bld) [#/Vol] 3.3 10*3/uL Normal 1.8-7.7 [facility] Comment on above: Performed By: #### T SH3, T4F, CBC, CMP, ESR #### [address] Neutrophils/100 WBC (Bld) 58.7 % Normal . [facility] Comment on above: Performed By: #### T SH3, T4F, CBC, CMP, ESR #### [address] NRBC% 0.1 /100{WBC} Normal 0-0.5 [facility] Comment on above: Performed By: #### T SH3, T4F, CBC, CMP, ESR #### [address] Platelet mean volume (Bld) [Entitic vol] 8.1 fL Normal 6.3-10.7 [facility] Comment on above: Performed By: #### T SH3, T4F, CBC, CMP, ESR #### [place] [address] [place] Platelets (Bld) [#/Vol] 289 10*3/uL Normal 150-450 [facility] Comment on above: Performed By: #### T SH3, T4F, CBC, CMP, ESR #### [address] RBC (Bld) [#/Vol] 4.57 10*6/uL Normal 3.60-5.00 [facility] Comment on above: Performed By: #### T SH3, T4F, CBC, CMP, ESR #### [address] WBC (Bld) [#/Vol] 5.6 10*3/uL Normal 3.8-11.6 [facility] Comment on above: Performed By: #### T SH3, T4F, CBC, CMP, ESR #### [address] Comprehensive Metabolic Pane jeremiah 05-28-2023 Albumin [Mass/Vol] 4.1 g/dL Normal 3.5-5.7 [facility] Comment on above: Performed By: #### T SH3, T4F, CBC, CMP, ESR #### [address] Albumin/Globulin [Mass ratio] 1.5 {ratio} Normal [facility] Comment on above: Performed By: #### T SH3, T4F, CBC, CMP, ESR #### [address] ALP [Catalytic activity/Vol] 76 U/L Normal 34-104 [facility] Comment on above: Performed By: #### T SH3, T4F, CBC, CMP, ESR #### [address] ALT [Catalytic activity/Vol] 13 U/L Normal 7-52 [facility] Comment on above: Performed By: #### T SH3, T4F, CBC, CMP, ESR #### [address] Anion gap [Moles/Vol] 11.0 mmol/L Normal 6.0-15.0 [facility] Comment on above: Performed By: #### T SH3, T4F, CBC, CMP, ESR #### [facility] [address] [place] [address] AST [Catalytic activity/Vol] 20 U/L Normal 13-39 [facility] Comment on above: Performed By: #### T SH3, T4F, CBC, CMP, ESR #### [facility] [address] [place] [address] Bilirubin [Mass/Vol] 0.7 mg/dL Normal 0.3-1.0 [facility] Comment on above: Performed By: #### T SH3, T4F, CBC, CMP, ESR #### [address] Calcium [Mass/Vol] 9.5 mg/dL Normal 8.6-10.3 [facility] Comment on above: Performed By: #### T SH3, T4F, CBC, CMP, ESR #### [address] Chloride [Moles/Vol] 108 mmol/L High 98-107 [facility] Comment on above: Performed By: #### T SH3, T4F, CBC, CMP, ESR #### [address] CO2 [Moles/Vol] 26.5 mmol/L Normal 21.0-31.0 [facility] Comment on above: Performed By: #### T SH3, T4F, CBC, CMP, ESR #### [address] Creatinine [Mass/Vol] 0.87 mg/dL Normal 0.60-1.20 [facility] Comment on above: Performed By: #### T SH3, T4F, CBC, CMP, ESR #### [place] [address] [place] GFR/1.73 sq M.predicted MDRD (S/P/Bld) [Vol rate/Area] mL/min/{1.73_m2} Normal [facility] Comment on above: Performed By: #### T SH3, T4F, CBC, CMP, ESR #### [facility] [address] [place] [address] [place] Globulin (S) [Mass/Vol] 2.7 g/dL Normal [facility] Comment on above: Performed By: #### T SH3, T4F, CBC, CMP, ESR #### [facility] [address] [place] [address] [place] Glucose [Mass/Vol] 87 mg/dL Normal 70-100 [facility] Comment on above: Result Comment: [facility] Glucose Reference Range is dependent on time and content of last meal. Glucose of more than 200 mg/dL in a nonstressed, ambulatory subject supports the diagnosis of Diabetes Mellitus. ADA recommended reference range Performed By: #### T SH3, T4F, CBC, CMP, ESR #### [facility] [address] [place] [address] [place] Potassium [Moles/Vol] 4.5 mmol/L Normal 3.5-5.1 [facility] Comment on above: Performed By: #### T SH3, T4F, CBC, CMP, ESR #### [facility] [address] [place] [address] [place] Protein [Mass/Vol] 6.8 g/dL Normal 6.4-8.9 [facility] Comment on above: Performed By: #### T SH3, T4F, CBC, CMP, ESR #### [facility] [address] [place] [id number] [place] Sodium [Moles/Vol] 141 mmol/L Normal 136-145 [facility] Comment on above: Performed By: #### T SH3, T4F, CBC, CMP, ESR #### [facility] [address] [place] [id number] [place] Urea nitrogen [Mass/Vol] 21 mg/dL Normal 7-25 [facility] Comment on above: Performed By: #### T SH3, T4F, CBC, CMP, ESR #### [facility] [address] [place] [id number] [place] Creatinine [Mass/volume] in Serum or PlasmaOrdered By: Carine Montoya on 05-28-2023 Creatinine [Mass/Vol] 0.87 mg/dL 0.60-1.20 [facility] Eosinophils Auto (Bld) [#/Vo l]Ordered By: Carine Montoya on 05-28-2023 Eosinophils (Bld) [#/Vol] 0.2 10*3/uL 0.0-0.45 [facility] Eosinophils/100 WBC Auto (Bl d)Ordered By: Carine Montoya on 05-28-2023 Eosinophils/100 WBC (Bld) 3.5 % . [facility] Erythrocyte Sedimentation Ra iza 05-28-2023 ESR (Bld) [Velocity] 29 mm/h Normal 0-29 [facility] Comment on above: Result Comment: PERF ORMED BY: [place] [address] PATHOLOGIST TERRAZZO [employer]LE MAKER FELICITAS BRINK M.D. Performed By: #### T SH3, T4F, CBC, CMP, ESR #### [facility] [address] [place] [address] Erythrocyte distribution wid th Auto (RBC) [Ratio]Ordered By: Carine Montoya on 05-28-2023 Erythrocyte distribution width (RBC) [Ratio] 14.6 % 11.9-15.3 [facility] Erythrocyte sedimentation ra te by Photometric methodOrdered By: Carine Montoya on 05-28-2023 ESR Photometric method (Bld) [Velocity] 29 mm/hr 0-29 [facility] Free T4 (Free Thyroxine)on 0 05-28-2023 Free T4 [Mass/Vol] 0.67 ng/dL Normal 0.61-1.12 [facility] Comment on above: Performed By: #### T SH3, T4F, CBC, CMP, ESR #### [facility] [address] [place] [address] Globulin Calc (S) [Mass/Vol] Ordered By: Carine Montoya on 05-28-2023 Globulin (S) [Mass/Vol] 2.7 g/dL [facility] Glucose [Mass/volume] in Ser um or PlasmaOrdered By: Carine Montoya on 05-28-2023 Glucose [Mass/Vol] 87 mg/dL 70-100 [facility] Comment on above: ADA recommended refe rence rangeRandom Glucose Reference Range is dependent on time and content of last meal. Glucose of more than 200 mg/dL in a nonstressed, ambulatory subject supports the diagnosis of Diabetes Mellitus. Hematocrit Auto (Bld) [Volum e fraction]Ordered By: Carine Montoya on 05-28-2023 Hematocrit (Bld) [Volume fraction] 41.5 % 34.0-46.4 [facility] Hemoglobin [Mass/volume] in BloodOrdered By: Carine Montoya on 05-28-2023 Hemoglobin (Bld) [Mass/Vol] 13.9 g/dL 11.8-15.4 [facility] Leukocytes [#/volume] correc ella for nucleated erythrocytes in Blood by Automated counOrdered By: Carine Montoya on 05-28-2023 WBC corrected for nucl RBC Auto (Bld) [#/Vol] 5.6 10*3/uL 3.8-11.6 [facility] Lymphocytes Auto (Bld) [#/Vo l]Ordered By: Carine Montoya on 05-28-2023 Lymphocytes (Bld) [#/Vol] 1.4 10*3/uL 1.00-4.8 [facility] Lymphocytes/100 WBC Auto (Bl d)Ordered By: Carine Montoya on 05-28-2023 Lymphocytes/100 WBC (Bld) 24.6 % . [facility] MCH Auto (RBC) [Entitic mass ]Ordered By: Carine Montoya on 05-28-2023 MCH (RBC) [Entitic mass] 30.5 pg 24.7-34.3 [facility] MCHC Auto (RBC) [Mass/Vol]Or dered By: Carine Montoya on 05-28-2023 MCHC (RBC) [Mass/Vol] 33.6 g/dL 32.0-35.0 [facility] MCV Auto (RBC) [Entitic vol] Ordered By: Carine Montoya on 05-28-2023 MCV (RBC) [Entitic vol] 90.8 fL 80-100 [facility] Monocytes Auto (Bld) [#/Vol] Ordered By: Carine Montoya on 05-28-2023 Monocytes (Bld) [#/Vol] 0.7 10*3/uL 0.0-0.8 [facility] Monocytes/100 WBC Auto (Bld) Ordered By: Carine Montoya on 05-28-2023 Monocytes/100 WBC (Bld) 12.7 % . [facility] Neutrophils Auto (Bld) [#/Vo l]Ordered By: Carine Montoya on 05-28-2023 Neutrophils (Bld) [#/Vol] 3.3 10*3/uL 1.8-7.7 [facility] Neutrophils/100 WBC Auto (Bl d)Ordered By: Carine Montoya on 05-28-2023 Neutrophils/100 WBC (Bld) 58.7 % . [facility] No Panel InformationOrdered By: Carine Montoya on 05-28-2023 Estimated GFR (CKD-EPI) > 60.0 mL/Min [facility] Creatinine Clearance (Chem N/A [facility] Nucleated erythrocytes [Pres ence] in Blood by Automated countOrdered By: Carine Montoya on 05-28-2023 Nucleated RBC Auto Ql (Bld) 0.1 /100{WBC} 0-0.5 [facility] Platelet mean volume Auto (B ld) [Entitic vol]Ordered By: Carine Montoya on 05-28-2023 Platelet mean volume (Bld) [Entitic vol] 8.1 fL 6.3-10.7 [facility] Platelets Auto (Bld) [#/Vol] Ordered By: Carine Montoya on 05-28-2023 Platelets (Bld) [#/Vol] 289 10*3/uL 150-450 [facility] Potassium [Moles/volume] in Serum or PlasmaOrdered By: Carine Montoya on 05-28-2023 Potassium [Moles/Vol] 4.5 mmol/L 3.5-5.1 [facility] Protein [Mass/volume] in Ser um or PlasmaOrdered By: Carine Montoya on 05-28-2023 Protein [Mass/Vol] 6.8 g/dL 6.4-8.9 [facility] RBC Auto (Bld) [#/Vol]Ordere d By: Carine Montoya on 05-28-2023 RBC (Bld) [#/Vol] 4.57 10*6/uL 3.60-5.00 [facility] Serum or plasma albumin/glob ulin mass ratioOrdered By: Carine Montoya on 05-28-2023 Albumin/Globulin [Mass ratio] 1.5 {ratio} [facility] Serum or plasma anion gap de terminationOrdered By: Carine Montoya on 05-28-2023 Anion gap [Moles/Vol] 11.0 mmol/L 6.0-15.0 [facility] Sodium [Moles/volume] in Ser um or PlasmaOrdered By: Carine Montoya on 05-28-2023 Sodium [Moles/Vol] 141 mmol/L 136-145 [facility] Thyroid Stimulating Hormoneo n 05-28-2023 TSH Qn 13.24 m[IU]/L High 0.45-5.33 [facility] Comment on above: Result Comment: PERF ORMED BY: [place] [address] PATHOLOGIST TERRA[employer]O [employer] FELICITAS BRINK M.D. Performed By: #### T SH3, T4F, CBC, CMP, ESR #### [address] Thyrotropin [Units/volume] i n Serum or PlasmaOrdered By: Carine Montoya on 05-28-2023 TSH Qn 13.24 m[IU]/L 0.45-5.33 [facility] Thyroxine (T4) free [Mass/vo lume] in Serum or PlasmaOrdered By: Carine Montoya on 05-28-2023 Free T4 [Mass/Vol] 0.67 ng/dL 0.61-1.12 [facility] Urea nitrogen [Mass/volume] in Serum or PlasmaOrdered By: Carine Montoya on 05-28-2023 Urea nitrogen [Mass/Vol] 21 mg/dL 7-25 [facility] WBC Auto (Bld) [#/Vol]Ordere d By: Carine Montoya on 05-28-2023 WBC (Bld) [#/Vol] 5.6 10*3/uL 3.8-11.6 [facility] ECG 12 lead ECGon 05-07-2023 ECG 12 lead ECG [facility] [place] [address] [place] [address] Electrocardiograph Report Signed Patient: Gogo Carey MR#: [id number] [birth year] : 1940 Acct:[id number] Age/Sex: 82 / F ADM Date: 05/07/23 Loc: ER Room: Type: [facility] ER Attending Dr: Ordering Provider: Camille Dennison DO Date of Service: 05/07/23 ECG/ECG 12 lead ECG: Shortness of Breath/Dyspnea Copies to: Test Reason : Blood Pressure : 127/087 mmHG Vent. Rate : 104 BPM Atrial Rate : 104 BPM P-R Int : 196 ms QRS Dur : 074 ms QT Int : 338 ms P-R-T Axes : 052 265 009 degrees QTc Int : 444 ms Sinus tachycardia with occasional premature ventricular complexes Confirmed by Daniel DE SANTIAGO DO ([id number]) on 05/08/2023 6:12:51 AM Referred By: Electronically Signed By:Daniel DE SANTIAGO DO Transcribed By: MUS Signed By Daniel De Santiago DO 1 07/09/22 0612 Normal [facility] Glucose Glucometer (BldC) [M ass/Vol]Ordered By: Camille Dennison on 05-07-2023 Glucose [Mass/Vol] 115 mg/dL [facility] Comment on above: Random Glucose Refer ence Range is dependent on time and content of last meal. Glucose of more than 200 mg/dL in a nonstressed, ambulatory subject supports the diagnosis of Diabetes Mellitus. Glucose Poct Glucometerson 1 07-08-2022 Glucose [Mass/Vol] 115 mg/dL Normal [facility] Comment on above: Result Comment: [place] Glucose Reference Range is dependent on time and content of last meal. Glucose of more than 200 mg/dL in a nonstressed, ambulatory subject supports the diagnosis of Diabetes Mellitus. PERFORMED BY: [address] [address] PATHOLOGIST TERRAZZO [employer]LE MAKER FELICITAS BRINK M.D. Performed By: #### G LULS #### Point of Care testing , XR acute abdomen serieson XR acute abdomen series [place] [id number] XRay Report Signed Patient: Gogo Carey MR#: [id number] [birth year] : 1940 Acct:[id number] Age/Sex: 82 / F ADM Date: 03/02/23 Loc: ER Room: Type: PRE ER Attending Dr: Copies to: Juan Henao DO Ordering Provider: Juan Henao DO Date of Service: 03/02/23 XR/XR acute abdomen series: constipation ACUTE ABDOMEN SERIES WITH PA CHEST : CLINICAL HISTORY: Constipation. COMPARISON: KUB 12/16/2022 1 view Chest: Heart normal size. Lungs are clear. No free air. 2 view Abd: Nonspecific bowel gas pattern. Moderate amount stool burden. No free air. Osseous structures demonstrate degenerative change. XR/XR acute abdomen series IMPRESSION: NO ACUTE PROCESS. EVIDENCE OF CONSTIPATION. Impression dictated by: Angelina Robledo Jr.OSarah03/02/2023 4:03 PM Dictation Location: [place] [address] Transcribed By: [facility] 03/02/231602 Dictated By: Brady Hanson Jr, DO 03/02/23 160 Signed By: 03/02/23 1603 Normal [facility] XR KUBon 12-16-2022 XR KUB [address] [address] XRay Report Signed Patient: Gogo Carey MR#: [id number] [birth year] : 1940 Acct:[id number] Age/Sex: 82 / F ADM Date: 12/16/22 Loc: ER Room: Type: PRE ER Attending Dr: Copies to: WALTER VARNER Ordering Provider: WALTER VARNER Date of Service: 12/16/22 XR/XR KUB: CONSTIPATION KUB: COMPARISON: 09/01/2014 CLINICAL DATA: Constipation and abdominal discomfort. Supine views of the abdomen and pelvis were obtained. There is a small amount of air within the stomach. There are no dilated small bowel loops. There is air and mild to moderate stool within the colon, greater on the left. No soft tissue masses are identified. No suspect renal calculi are seen. There is dextroscoliotic curvature and endplate spurring at the spine. XR/XR KUB IMPRESSION: NONOBSTRUCTIVE BOWEL GAS PATTERN WITH MILD TO MODERATE COLONIC STOOL. Impression dictated by: Noelle Pagan M.D.12/16/2022 4:03 PM Dictation Location: [place] [address] Transcribed By: ANIKA 12/16/22 160 Dictated By: Noelle Pagan MD 12/16/22 160 Signed By: 12/16/22 160 [facility] CBC AUTO DIFFon 09-16-2022 BASO # 0.0 103/ul Normal 0.0-0.1 [facility] Comment on above: Performed By: #### C MP, LIPID, TSH, T7 #### [facility] [address] [place] [address] Dr. Grace Durand Basophils/100 WBC (Bld) 0.3 % Normal 0.2-2.0 [facility] Comment on above: Performed By: #### C MP, LIPID, TSH, T7 #### [facility] [address] [place] [address] Dr. Grace Durand EO # 0.1 103/ul Normal 0.0-0.7 [facility] Comment on above: Performed By: #### C MP, LIPID, TSH, T7 #### [facility] [address] [place] [address] Dr. Grace Durand Eosinophils/100 WBC (Bld) 1.3 % Normal 0.9-7.0 [facility] Comment on above: Performed By: #### C MP, LIPID, TSH, T7 #### [facility] [address] [place] [address] Dr. Grace Durand Erythrocyte distribution width (RBC) [Ratio] 13.8 % Normal 11.0-15.0 [facility] Comment on above: Performed By: #### C MP, LIPID, TSH, T7 #### [facility] [address] [place] [address] Dr. Grace Durand Hematocrit (Bld) [Volume fraction] 42.9 % Normal 36.0-48.0 [facility] Comment on above: Performed By: #### C MP, LIPID, TSH, T7 #### [facility] [address] [place] [address] Dr. Grace Durand Hemoglobin (Bld) [Mass/Vol] 14.2 g/dL Normal 12.0-16.0 [facility] Comment on above: Performed By: #### C MP, LIPID, TSH, T7 #### [facility] [address] [place] [address] Dr. Grace Durand IG # 0.02 10e3/ul Normal 0.00-0.03 [facility] Comment on above: Performed By: #### C MP, LIPID, TSH, T7 #### [facility] [address] [place] [address] Dr. Grace Durand IG % 0.3 % Normal 0.0-0.5 [facility] Comment on above: Performed By: #### C MP, LIPID, TSH, T7 #### [facility] [address] [place] [address] Dr. Grace Durand LYMPH # 1.6 103/ul Normal 1.2-3.8 [facility] Comment on above: Performed By: #### C MP, LIPID, TSH, T7 #### [facility] [address] [place] [address] Dr. Grace Durand Lymphocytes/100 WBC (Bld) 22.8 % Normal 20.5-60.0 [facility] Comment on above: Performed By: #### C MP, LIPID, TSH, T7 #### [facility] [address] [place] [address] Dr. Grace Durand MANUAL DIFF REQ NO Normal [facility] Comment on above: Performed By: #### C MP, LIPID, TSH, T7 #### [facility] [address] [place] [address] Dr. Grace Durand MCH (RBC) [Entitic mass] 30.0 pg Normal 26.7-34.0 [facility] Comment on above: Performed By: #### C MP, LIPID, TSH, T7 #### [facility] [address] [place] [address] Dr. Grace Durand MCHC (RBC) [Mass/Vol] 33.1 g/dL Normal 29.9-35.2 [facility] Comment on above: Performed By: #### C MP, LIPID, TSH, T7 #### [facility] [address] [place] [address] Dr. Grace Durand MCV (RBC) [Entitic vol] 90.5 fL Normal 81.0-99.0 [facility] Comment on above: Performed By: #### C MP, LIPID, TSH, T7 #### [facility] [address] [place] [address] Dr. Grace Durand MONO # 0.7 103/ul Normal 0.3-0.8 [facility] Comment on above: Performed By: #### C MP, LIPID, TSH, T7 #### [facility] [address] [place] [address] Dr. Grace Duradn Monocytes/100 WBC (Bld) 10.4 % Normal 1.7-12.0 [facility] Comment on above: Performed By: #### C MP, LIPID, TSH, T7 #### [facility] [address] [place] [address] Dr. Grace Durand NEUT # 4.6 103/ul Normal 1.4-6.5 [facility] Comment on above: Performed By: #### C MP, LIPID, TSH, T7 #### [facility] [address] [place] [address] Dr. Grace Durand Neutrophils/100 WBC (Bld) 64.9 % Normal 43.0-75.0 [facility] Comment on above: Performed By: #### C MP, LIPID, TSH, T7 #### [facility] [address] [place] [address] Dr. Grace Durand Platelet mean volume (Bld) [Entitic vol] 9.6 fL Normal 9.5-13.5 [facility] Comment on above: Performed By: #### C MP, LIPID, TSH, T7 #### [facility] [address] [place], [place] [address] Dr. Grace Durand PLT 297 103/ul Normal 150-450 [facility] Comment on above: Performed By: #### C MP, LIPID, TSH, T7 #### [facility] [address] [place], [place] [address] Dr. Grace Durand RBC 4.74 106/ul Normal 4.20-5.40 [facility] Comment on above: Performed By: #### C MP, LIPID, TSH, T7 #### [facility] [address] [place], [place] [address] Dr. Grace Durand WBC 7.0 103/ul Normal 4.0-11.0 [facility] Comment on above: Performed By: #### C MP, LIPID, TSH, T7 #### [facility] [address] [place], [place] [address] ABD/PELV W CONon 09-17-[address] ABD/PELV W CON CT ABDOMEN AND PELVI S WITH CONTRAST: INDICATION: Constipation. COMPARISON: 11/12/2020.. TECHNIQUE: Helical CT images of the abdomen and pelvis were obtained after the administration of intravenous contrast. Dose reduction techniques were achieved by using automated exposure control and/or adjustment of mA and/or kV according to patient size and/or use of iterative reconstruction technique. FINDINGS: LOWER CHEST: Subsegmental atelectasis in the left lower lobe. LIVER: The liver dome is excluded. There is an incompletely imaged hypodensity in the liver dome which was seen on the previous study. GALLBLADDER AND BILIARY SYSTEM: The gallbladder is contracted. There is no intra or extrahepatic biliary ductal dilatation. SPLEEN: Unremarkable. PANCREAS: Unremarkable. ADRENAL GLANDS: Unremarkable. KIDNEYS AND URETERS: The kidneys enhance symmetrically. There is no hydronephrosis. No focal renal lesions. BLADDER: Under distended. GASTROINTESTINAL TRACT: There is a large amount of stool in the rectum. Sigmoid diverticulosis without evidence of diverticulitis. Moderate amount of stool in the colon. Normal appendix. Mild circumferential wall thickening of the gastric antrum. VASCULATURE: Unremarkable. RETROPERITONEUM AND LYMPH NODES: No lymphadenopathy or mass. PERITONEUM/MESENTERY: No abdominal ascites. No free air. PELVIS: No pelvic ascites or lymphadenopathy. There is evidence of pelvic floor dysfunction with mild cystocele. BODY WALL: Small fat-containing umbilical hernia. BONES: Multilevel degenerative changes of the lumbar spine. Mild dextroscoliosis of the lumbar spine. IMPRESSION: 1. Large amount of stool in the rectum. Moderate amount of stool noted throughout the colon. No evidence of bowel obstruction. Sigmoid diverticulosis without evidence of diverticulitis. 2. Incompletely imaged hypodense lesion in the liver dome which was previously seen. 3. Mild circumferential wall thickening of the gastric antrum which may be secondary to underdistention or gastritis. 4. Evidence of pelvic floor dysfunction with mild cystocele. Electronically authenticated by: HECTOR GONZALEZ Date: 2022-09-16 19:29 Normal [facility] LACTATE/LACTIC ACIDon 2022 Lactate [Moles/Vol] 1.7 mmol/L Normal 0.4-2.0 [facility] Comment on above: Performed By: #### L ACT #### [facility] [address] [place] [address] Dr. Grace Durand PROF CHEM 8 (BAS METB)on Anion gap [Moles/Vol] 12.9 mmol/L Normal [facility] Comment on above: Performed By: #### B MP #### [facility] [address] [place] [address] Dr. Grace Durand Calcium [Mass/Vol] 9.5 mg/dL Normal 8.5-10.1 [facility] Comment on above: Performed By: #### B MP #### [facility] [address] [place] [address] Dr. Grace Durand Chloride [Moles/Vol] 107 mmol/L Normal 98-107 [facility] Comment on above: Performed By: #### B MP #### [facility] [address] [place] [address] [address] Grace Durand CO2 [Moles/Vol] 23.6 mmol/L Normal 21.0-32.0 [facility] Comment on above: Performed By: #### B MP #### [facility] [address] [place] [address] Dr. Grace Durand Creatinine [Mass/Vol] 1.14 mg/dL Critically high 0.55-1.02 [facility] Comment on above: Performed By: #### B MP #### [facility] [address] [address] [address] Grace Durand EGFR-AF SERBIAN 56 mL/min/1.73m2 Critically low >=60 [facility] Comment on above: Performed By: #### B MP #### [facility] [address] [address] [address] Grace Durand EGFR-NON AF SERBIAN 46 mL/min/1.73m2 Critically low >=60 [facility] Comment on above: Performed By: #### B MP #### [facility] [address] [place] [address] Dr. Grace Durand Glucose [Mass/Vol] 120 mg/dL Critically high 74-106 [facility] Comment on above: Performed By: #### B MP #### [facility] [address] [place] [address] Dr. Grace Durand Potassium [Moles/Vol] 3.5 mmol/L Normal 3.5-5.1 [facility] Comment on above: Performed By: #### B MP #### [facility] [address] [place] [address] Dr. Grace Durand Sodium [Moles/Vol] 140 mmol/L Normal 136-145 [facility] Comment on above: Performed By: #### B MP #### [facility] [address] [address] [address] Grace Durand Urea nitrogen [Mass/Vol] 14.0 mg/dL Normal 7.0-18.0 [facility] Comment on above: Performed By: #### B MP #### [facility] [address] [address] [address] Grace Durand Urea nitrogen/Creatinine [Mass ratio] 12.3 mg/mg Normal [facility] Comment on above: Performed By: #### B MP #### [facility] [address] [place] [address] Dr. Grace Durand XR ABD FLAT UP_PA Jack 07-20 XR ABD FLAT UP_PA CH EXAMINATION: XR ABD FLAT UP_PA CH HISTORY: Constipation COMPARISON: None. TECHNIQUE: PA chest x-ray and 3 views of the abdomen FINDINGS: The lung parenchyma is free of consolidation or infiltrate. No pneumothorax or pleural effusion. The cardiac, mediastinal and hilar contours are normal. The bowel gas pattern is nonobstructed. The stool burden is unremarkable. No visualized intra-abdominal calcification. The visualized osseous structures exhibit no gross acute abnormality. IMPRESSION: No visualized acute abnormality. Electronically authenticated by: LUKAS HENRY Date: 2022-07-20 16:03 Normal [facility] T4 LABCORPon 10-05-2021 T4 [Mass/Vol] 6.6 ug/dL Normal 4.5-12.0 [facility] Comment on above: Performed By: #### T 4LC #### [facility] [address] [place] [address] Dr. Grace Durand INSULINon 10-02-2021 Insulin 7.4 uIU/mL Normal 2.6-24.9 [facility] Comment on above: Performed By: #### C MP, LIPID, TSH, T7 #### [facility] [address] [place] [address] Dr. Grace Durand CBC AUTO DIFFon 10-01-2021 BASO # 0.0 103/ul Normal 0.0-0.1 [facility] Comment on above: Performed By: #### C MP, LIPID, TSH, T7 #### [facility] [address] [place] [address] Dr. Grace Durand Basophils/100 WBC (Bld) 0.4 % Normal 0.2-2.0 [facility] Comment on above: Performed By: #### C MP, LIPID, TSH, T7 #### [facility] [address] [place] [address] Dr. Grace Durand EO # 0.2 103/ul Normal 0.0-0.7 [facility] Comment on above: Performed By: #### C MP, LIPID, TSH, T7 #### [facility] [address] [place] [address] Dr. Grace Durand Eosinophils/100 WBC (Bld) 3.1 % Normal 0.9-7.0 [facility] Comment on above: Performed By: #### C MP, LIPID, TSH, T7 #### [facility] [address] [address] [address] Grace Durand Erythrocyte distribution width (RBC) [Ratio] 13.6 % Normal 11.0-15.0 [facility] Comment on above: Performed By: #### C MP, LIPID, TSH, T7 #### [facility] [address] [place] [address] Dr. Grace Durand Hematocrit (Bld) [Volume fraction] 45.9 % Normal 36.0-48.0 [facility] Comment on above: Performed By: #### C MP, LIPID, TSH, T7 #### [facility] [address] [place] [address] Dr. Grace Durand Hemoglobin (Bld) [Mass/Vol] 14.7 g/dL Normal 12.0-16.0 [facility] Comment on above: Performed By: #### C MP, LIPID, TSH, T7 #### [facility] [address] [place] [address] Dr. Grace Durand IG # 0.01 10e3/ul Normal 0.00-0.03 [facility] Comment on above: Performed By: #### C MP, LIPID, TSH, T7 #### [facility] [address] [place] [address] Dr. Grace Durand IG % 0.2 % Normal 0.0-0.5 [facility] Comment on above: Performed By: #### C MP, LIPID, TSH, T7 #### [facility] [address] [place] [address] Dr. Grace Durand LYMPH # 1.5 103/ul Normal 1.2-3.8 [facility] Comment on above: Performed By: #### C MP, LIPID, TSH, T7 #### [facility] [address] [place] [address] Dr. Grace Durand Lymphocytes/100 WBC (Bld) 30.0 % Normal 20.5-60.0 [facility] Comment on above: Performed By: #### C MP, LIPID, TSH, T7 #### [facility] [address] [address] [address] Grace Durand MANUAL DIFF REQ NO Normal [facility] Comment on above: Performed By: #### C MP, LIPID, TSH, T7 #### [facility] [address] [place] [address] Dr. Grace Durand MCH (RBC) [Entitic mass] 29.1 pg Normal 26.7-34.0 [facility] Comment on above: Performed By: #### C MP, LIPID, TSH, T7 #### [facility] [address] [place] [address] Dr. Grace Durand MCHC (RBC) [Mass/Vol] 32.0 g/dL Normal 29.9-35.2 [facility] Comment on above: Performed By: #### C MP, LIPID, TSH, T7 #### [facility] [address] [place] [address] Dr. Grace Durand MCV (RBC) [Entitic vol] 90.7 fL Normal 81.0-99.0 [facility] Comment on above: Performed By: #### C MP, LIPID, TSH, T7 #### [facility] [address] [place] [address] Dr. Grace Durand MONO # 0.5 103/ul Normal 0.3-0.8 [facility] Comment on above: Performed By: #### C MP, LIPID, TSH, T7 #### [facility] [address] [place] [address] Dr. Grace Durand Monocytes/100 WBC (Bld) 9.9 % Normal 1.7-12.0 [facility] Comment on above: Performed By: #### C MP, LIPID, TSH, T7 #### [facility] [address] [place] [address] Dr. Grace Durand NEUT # 2.9 103/ul Normal 1.4-6.5 [facility] Comment on above: Performed By: #### C MP, LIPID, TSH, T7 #### [facility] [address] [place] [address] Dr. Grace Durand Neutrophils/100 WBC (Bld) 56.4 % Normal 43.0-75.0 [facility] Comment on above: Performed By: #### C MP, LIPID, TSH, T7 #### [facility] [address] [place] [address] Dr. Grace Durand Platelet mean volume (Bld) [Entitic vol] 10.1 fL Normal 9.5-13.5 [facility] Comment on above: Performed By: #### C MP, LIPID, TSH, T7 #### [facility] [address] [place] [address] Dr. Grace Durand PLT 288 103/ul Normal 150-450 [facility] Comment on above: Performed By: #### C MP, LIPID, TSH, T7 #### [facility] [address] [place] [address] Dr. Grace Durand RBC 5.06 106/ul Normal 4.20-5.40 [facility] Comment on above: Performed By: #### C MP, LIPID, TSH, T7 #### [facility] [address] [place] [address] Dr. Grace Durand WBC 5.1 103/ul Normal 4.0-11.0 [facility] Comment on above: Performed By: #### C MP, LIPID, TSH, T7 #### [facility] [address] [place] [address] Dr. Grace Durand FREE THYROXINE INDEX T7on FTI 2.11 Normal 1.30-4.50 [facility] Comment on above: Performed By: #### C MP, LIPID, TSH, T7 #### [facility] [address] [place] [address] Dr. Grace Durand T3U 32.0 % Normal 30.0-39.0 [facility] Comment on above: Performed By: #### C MP, LIPID, TSH, T7 #### [facility] [address] [place] [address] Dr. Grace Durand T4 [Mass/Vol] 6.60 ug/dL Normal 4.80-13.90 [facility] Comment on above: Performed By: #### C MP, LIPID, TSH, T7 #### [facility] [address] [address] [address] Grace Durand GLYCOHEMOGLOBIN A1Con 2021 ADA RECOMMENDATION SEE BELOW Normal [facility] Comment on above: Result Comment: ADA RECOMMENDED LIMIT 4.0 - 6.0 ADA THERAPEUTIC TARGET < 7.0 ACTION SUGGESTED > 7.0 Performed By: #### C MP, LIPID, TSH, T7 #### [facility] [address] [place] [address] Dr. Grace Durand Glucose [Mass/Vol] 108 mg/dL Normal [facility] Comment on above: Performed By: #### C MP, LIPID, TSH, T7 #### [facility] [address] [place] [address] Dr. Grace Durand HbA1c (Bld) [Mass fraction] 5.4 % Normal 4.5-6.2 [facility] Comment on above: Performed By: #### C MP, LIPID, TSH, T7 #### [facility] [address] [place] [address] Dr. Grace Durand IRONon 10-01-2021 Iron [Mass/Vol] 76.0 ug/dL Normal 50.0-170.0 [facility] Comment on above: Performed By: #### I GWYN #### [facility] [address] [place] [address] Dr. Grace Durand LIPID PROFILEon 10-01-2021 CHOL-HDL RATIO NORM SEE BELOW Normal [facility] Comment on above: Result Comment: 3.3 - 4.4 LOW RISK 4.4 - 7.1 AVERAGE RISK 7.1 - 11.0 MODERATE RISK >11.0 HIGH RISK Performed By: #### C MP, LIPID, TSH, T7 #### [facility] [address] [place] [address] Dr. Grace Durand Cholesterol [Mass/Vol] 200 mg/dL Normal <=200 [facility] Comment on above: Performed By: #### C MP, LIPID, TSH, T7 #### [facility] [address] [place] [address] Dr. Grace Durand Cholesterol in HDL [Mass/Vol] 61 mg/dL Critically high 40-60 [facility] Comment on above: Performed By: #### C MP, LIPID, TSH, T7 #### [facility] [address] [address] [address] Grace Durand Cholesterol in LDL [Mass/Vol] 109.8 mg/dL Normal [facility] Comment on above: Performed By: #### C MP, LIPID, TSH, T7 #### [facility] [address] [address] [address] Grace Durand Cholesterol.total/Chol esterol in HDL [Mass ratio] 3.3 {ratio} Normal [facility] Comment on above: Performed By: #### C MP, LIPID, TSH, T7 #### [facility] [address] [address] [address] Grace Durand HDL NORMAL > or = 60 mg/dl - LO W CARDIOVASCULAR RISK <40 mg/dl - HIGH CARDIOVASCULAR RISK Normal [facility] Comment on above: Performed By: #### C MP, LIPID, TSH, T7 #### [facility] [address] [address] [address] Grace Durand LDL CALC NORMAL SEE BELOW Normal [facility] Comment on above: Result Comment: <100 mg/dl OPTIMAL 100 - 129 mg/dl NEAR OR ABOVE OPTIMAL 130 - 159 mg/dl BORDERLINE HIGH 160 - 189 mg/dl HIGH >190 mg/dl VERY HIGH Performed By: #### C MP, LIPID, TSH, T7 #### [facility] [address] [address] [address] Grace Durand Triglyceride [Mass/Vol] 146 mg/dL Normal <=150 [facility] Comment on above: Performed By: #### C MP, LIPID, TSH, T7 #### [facility] [address] [place] [address] Dr. Grace Durand VLDL CALC 29.2 mg/dL Normal [facility] Comment on above: Performed By: #### C MP, LIPID, TSH, T7 #### [facility] [address] [address] [address] Grace Durand PROF 14(COMP METB)on 022 Albumin [Mass/Vol] 3.6 g/dL Normal 3.4-5.0 [facility] Comment on above: Performed By: #### C MP, LIPID, TSH, T7 #### [facility] [address] [place] [address] Dr. Grace Durand Albumin/Globulin [Mass ratio] 0.9 {ratio} Normal [facility] Comment on above: Performed By: #### C MP, LIPID, TSH, T7 #### [facility] [address] [place] [address] Dr. Grace Durand ALP [Catalytic activity/Vol] 90 U/L Normal 46-116 [facility] Comment on above: Performed By: #### C MP, LIPID, TSH, T7 #### [facility] [address] [place] [address] Dr. Grace Durand ALT [Catalytic activity/Vol] 20 U/L Normal 14-59 [facility] Comment on above: Performed By: #### C MP, LIPID, TSH, T7 #### [facility] [address] [address] [address] Grace Durand Anion gap [Moles/Vol] 11.0 mmol/L Normal [facility] Comment on above: Performed By: #### C MP, LIPID, TSH, T7 #### [facility] [address] [place] [address] Dr. Grace Durand AST [Catalytic activity/Vol] 18 U/L Normal 15-37 [facility] Comment on above: Performed By: #### C MP, LIPID, TSH, T7 #### [facility] [address] [place] [address] Dr. Grace Durand Bilirubin [Mass/Vol] 0.5 mg/dL Normal 0.2-1.0 [facility] Comment on above: Performed By: #### C MP, LIPID, TSH, T7 #### [facility] [address] [place] [address] Dr. Grace Durand Calcium [Mass/Vol] 9.3 mg/dL Normal 8.5-10.1 [facility] Comment on above: Performed By: #### C MP, LIPID, TSH, T7 #### [facility] [address] [place] [address] Dr. Grace Durand Chloride [Moles/Vol] 107 mmol/L Normal 98-107 [facility] Comment on above: Performed By: #### C MP, LIPID, TSH, T7 #### [facility] [address] [place] [address] Dr. Grace Durand CO2 [Moles/Vol] 26.9 mmol/L Normal 21.0-32.0 [facility] Comment on above: Performed By: #### C MP, LIPID, TSH, T7 #### [facility] [address] [place] [address] Dr. Grace Durand Creatinine [Mass/Vol] 0.96 mg/dL Normal 0.55-1.02 [facility] Comment on above: Performed By: #### C MP, LIPID, TSH, T7 #### [facility] [address] [place] [address] Dr. Grace Durand EGFR-AF SERBIAN >60 Normal >=60 [facility] Comment on above: Performed By: #### C MP, LIPID, TSH, T7 #### [facility] [address] [place] [address] Dr. Grace Durand EGFR-NON AF SERBIAN 56 mL/min/1.73m2 Critically low >=60 [facility] Comment on above: Performed By: #### C MP, LIPID, TSH, T7 #### [facility] [address] [place] [address] Dr. Grace Durand Globulin (S) [Mass/Vol] 3.9 g/dL Normal [facility] Comment on above: Performed By: #### C MP, LIPID, TSH, T7 #### [facility] [address] [place] [address] Dr. Grace Durand Glucose [Mass/Vol] 95 mg/dL Normal 74-106 [facility] Comment on above: Performed By: #### C MP, LIPID, TSH, T7 #### [facility] [address] [place] [address] Dr. Grace Durand Potassium [Moles/Vol] 4.9 mmol/L Normal 3.5-5.1 [facility] Comment on above: Performed By: #### C MP, LIPID, TSH, T7 #### [facility] [address] [place] [address] Dr. Grace Durand Protein [Mass/Vol] 7.5 g/dL Normal 6.4-8.2 [facility] Comment on above: Performed By: #### C MP, LIPID, TSH, T7 #### [facility] [address] [place] [address] Dr. Grace Durand Sodium [Moles/Vol] 140 mmol/L Normal 136-145 [facility] Comment on above: Performed By: #### C MP, LIPID, TSH, T7 #### [facility] [address] [place] [address] Dr. Grace Durand Urea nitrogen [Mass/Vol] 15.0 mg/dL Normal 7.0-18.0 [facility] Comment on above: Performed By: #### C MP, LIPID, TSH, T7 #### [facility] [address] [place] [address] Dr. Grace Durand Urea nitrogen/Creatinine [Mass ratio] 15.6 mg/mg Normal [facility] Comment on above: Performed By: #### C MP, LIPID, TSH, T7 #### [facility] [address] [place] [address] Dr. Grace Durand TSHon 10-01-2021 TSH 0.265 uIU/mL Critically low 0.358-3.74 0 [facility] Comment on above: Performed By: #### C MP, LIPID, TSH, T7 #### [facility] [address] [place] [address] Dr. Grace Durand TSH RANGE SEE BELOW Normal [facility] Comment on above: Result Comment: <0.3 4 UIU/ml HYPERTHYROID 0.34-5.60 UIU/ml EUTHYROID >5.60 UIU/ml HYPOTHYROID Performed By: #### C MP, LIPID, TSH, T7 #### [facility] [address] [place] [address] Dr. Grace Durand Physician Referralon 021 Physician Referral [id number]:127 Normal [facility] Formson 03-09-2020 Forms [id number]:127 Normal [facility] Physician Referralon 020 Physician Referral [id number]:127 Normal [facility] Ambulatory Clinical Summaryo n 02-28-2020 Ambulatory Clinical Summary {[id number]}CD: [id number] Normal [facility] Patient Educationon 02-28-20 20 Patient Education Family Medicine Urinary Frequency The number of times a normal person urinates depends upon how much liquid they take in and how much liquid they are losing. If the temperature is hot and there is high humidity then the person will sweat more and usually breathe a little more frequently. These factors decrease the amount of frequency of urination that would be considered normal. The amount you drink is easily determined, but the amount of fluid lost is sometimes more difficult to calculate. Fluid is lost in two ways: ? Sensible fluid loss is usually measured by the amount of urine that you get rid of. Losses of fluid can also occur with diarrhea. ? Insensible fluid loss is more difficult to measure. It is caused by evaporation. Insensible loss of fluid occurs through breathing and sweating. It usually ranges from a little less than a quart to a little more than a quart of fluid a day. In normal temperatures and activity levels the average person may urinate 4 to 7 times in a 24-hour period. Needing to urinate more often than that could indicate a problem. If one urinates 4 to 7 times in 24 hours and has large volumes each time, that could indicate a different problem from one who urinates 4 to 7 times a day and has small volumes. The time of urinating is also an important. Most urinating should be done during the waking hours. Getting up at night to urinate frequently can indicate some problems. CAUSES The bladder is the organ in your lower abdomen that holds urine. Like a balloon, it swells some as it fills up. Your nerves sense this and tell you it is time to head for the bathroom. There are a number of reasons that you might feel the need to urinate more often than usual. They include: ? Urinary tract infection. This is usually associated with other signs such as burning when you urinate. ? In men, problems with the prostate (a walnut-size gland that is located near the tube that carries urine out of your body). There are two reasons why the prostate can cause an increased frequency of urination: ? An enlarged prostate that does not let the bladder empty well. If the bladder only half empties when you urinate then it only has half the capacity to fill before you have to urinate again. ? The nerves in the bladder become more hypersensitive with an increased size of the prostate even if the bladder empties completely. ? . ? Obesity. Excess weight is more likely to cause a problem for women more than for men. ? Bladder stones or other bladder problems. ? Caffeine. ? Alcohol. ? Medications. For example, drugs that help the body get rid of extra fluid (diuretics ) increase urine production. Some other medicines must be taken with lots of fluids. ? Muscle or nerve weakness. This might be the result of a spinal cord injury, a stroke, multiple sclerosis or Parkinson's disease. ? Long-standing diabetes can decrease the sensation of the bladder. This loss of sensation makes it harder to sense the bladder needs to be emptied. Over a period of years the bladder is stretched out by constant overfilling. This weakens the bladder muscles so that the bladder does not empty well and has less capacity to fill with new urine. ? Interstitial cystitis (also called painful bladder syndrome). This condition develops because the tissues that line the insider of the bladder are inflamed (inflammation is the body's way of reacting to injury or infection). It causes pain and frequent urination. It occurs in women more often than in men. DIAGNOSIS ? To decide what might be causing your urinary frequency, your healthcare provider will probably: ? Ask about symptoms you have noticed. ? Ask about your overall health. This will include questions about any medications you are taking. ? Do a physical examination. ? Order some tests. These might include: ? A blood test to check for diabetes or other health issues that could be contributing to the problem. ? Urine testing. This could measure the flow of urine and the pressure on the bladder. ? A test of your neurological system (the brain, spinal cord and nerves). This is the system that senses the need to urinate. ? A bladder test to check whether it is emptying completely when you urinate. ? Cytoscopy. This test uses a thin tube with a tiny camera on it. It offers a look inside your urethra and bladder to see if there are problems. ? Imaging tests. You might be given a contrast dye and then asked to urinate. X-rays are taken to see how your bladder is working. TREATMENT It is important for you to be evaluated to determine if the amount or frequency that you have is unusual or abnormal. If it is found to be abnormal the cause should be determined and this can usually be found out easily. Depending upon the cause treatment could include medication, stimulation of the nerves, or surgery. There are not too many things that you can do as an individual to change your urinary (more content not included)... Normal [facility] Urology Office/Clinic Noteon 02-28-2020 Urology Office/Clinic Note Chief Complaint Pt is a new patient HPI Staff Pt is a new patient she is a referral from Adela Baker CNP. Pt had a prolapse bladder and the mesh broke, she can't find the mesh she's worried it's still in her. Pain with urination:Pt denies pain and burning Blood in urine:Pt denies Incomplete bladder emptying:Pt denies Frequency:Pt states all the time. Urgency:Pt states most of the time. Nocturia:Pt states 2 to 5 times Hesitancy:Pt denies Urination requires straining:Pt denies Stream:Pt denies Stream starts and stops:Pt denies Leaking before getting to the restroom:P states occasionally Urinary incontinence without sensory awareness:Pt denies Temporarily unable to restrain urination with body movement:Pt denies Wearing pad/Depends:Pt states she changes her pad 2 times a day. Urine odor:Pt denies Flank/Back pain:Pt denies Abdominal pain:Pt denies History of Present Illness Reviewed [employer] and [employer]. There have been no associated fever, chills, flank pain or blood in the urine. Pt. denies any pain/burning with urination at this time. Review of Systems ROS - Provider Constitutional: denies weight loss, denies hot flashes. Eyes: denies eye problems. Gastrointestinal: denies nausea, denies vomiting. Cardiovascular: denies chest pain or angina. Integumentary: no dryness Musculoskeletal: denies musculoskeletal symptoms. ENMT: denies otolaryngeal symptoms. Respiratory: no shortness of breath. Heme/Lymph: denies easy bleeding tendency, denies easy bruising tendency. Psychiatric: no confusion, no anxiety. Genitourinary: denies vaginal discharge, moderate incontinence, denies dysuria, denies hematuria, moderate urinary frequency, denies amenorrhea, denies menorrhagia, denies abnormal bleeding, denies pelvic pain, denies genital sores, and denies decreased libido. Physical Exam Vitals & Measurements HR: 56(Peripheral) RR: 16 BP: 110/74 HT: 153 cm HT: 153.0 cm WT: 79.6 kg WT: 79.6 kg BMI: 34 General Appearance: alert , no acute distress, well nourished, well developed female. Head: normocephalic . Eyes: normal orbit and globe. ENMT: normal examination of external ears. Chest: Lungs CTA, respirations non labored . Cardiovascular: regular rate and rhythm. Abdomen: soft, non distended, moderate tenderness, RLQ no mass or organomegaly, no hernia. Genitourinary: bladder nonpalpable, no flank tenderness. Lymph Nodes: unremarkable palpation of the cervical area. Skin: warm, dry, no bruising. Psychiatric: cooperative, affect appropriate for age, normal judgement, euthymic mood. Assessment/Plan 1. 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 Pt. had a bladder prolapse reair with mesh in by dr flores at [facility]. Her bladder has dropped again several years ago and she is desirous of correction. I advised pt. to go back to dr. flores to re-evaluate this issue in order to answer pts. concerns. All questions/concerns were discussed. Pt. to call the office if sheencounters any issues prior. Pt. acknowledges understanding. 2. Nocturia (R35.1: Nocturia) 2-5x/night. 3. Urge incontinence (N39.41: Urge incontinence) Moderate. Pt. changes pads 2x/day. 4. Bowel habit changes (R19.4: Change in bowel habit) Pt. states she has had constipation issues. I advised pt. to start taking Metamucil tid. Pt. acknowledges understanding. I have reviewed the previous health record information and history for this pt. from Dr. Coppola. Follow-up With When Contact Information LENNY HARDY, Juan Solano [address] [place] [address]- [phone] Additional Instructions: Patient Education Urinary Frequency I, Gabrielle Moore , personally scribed for Dr. Coppola on 02/28/2020 13:25:06. . Documentation recorded by the scribe, Gabrielle Moore, accurately reflects the services(s) I performed and decisions made by me. Authenticated by Dr. Coppola on 02/28/2020 13:30:12. Problem List/Past Medical History Ongoing Arthritis Bowel habit changes Depression Female bladder prolapse Hyperlipemia Hypertension Nocturia Urge incontinence Historical No qualifying data Procedure/Surgical History Carpal tunnel release (07/06/2015), Colonoscopy, Hip replacement, Hysterectomy, Knee replacement. Medications acetaminophen-hydrocodone 325 mg-5 mg oral tablet, 1 tab(s), Oral, q6hr, Not taking amLODIPine 5 mg Tab, 5 mg= 1 tab(s), Oral, Daily B-12 busPIRone 5 mg Tab, Oral, BID Cometriq 100 mg daily-dose oral capsule, Oral, Daily Fish Oil 1000 mg oral capsule, Oral, BID ibuprofen 800 mg Tab, 800 mg= 1 tab(s), Oral, BID levothyroxine 88 mcg (0.088 mg) Tab, 88 microgram= 1 tab(s), Oral, Daily Multi Vitamins oral tablet, 1 tab(s), Oral, Daily [place] 325 mg-5 mg oral tablet, 1 tab(s), Oral, q4hr, PRN, 1 refills, Not taking sertraline 100 mg Tab, 100 mg= 1 tab(s), Oral, Daily (more content not included)... Normal [facility] Comment on above: Result Comment: Elec tronically Signed By: Juan COPPOLA MD\.br\Date and Time Signed: 02/28/20 13:30 EDT\.br\Electronically Co-Signed By: Gabrielle Moore MA\.br\Date and Time Co-Signed: 02/28/20 13:25 EDT SHOULDER RIGHTon 10-01-2017 SHOULDER RIGHT [facility] CenterDepartment [facility] Bavetsdw[address] [facility] [place] [address] Yarelis ent Name: GOGO CAREY : 1940Sex: FAge: Race: WhiteMRN: [id number]. Location: 84Patient Status: DVisit #: [id number] Date: 10/01/2017 4:30:00 PMCompleted Date: 10/01/2017 04:36 PMRequesting Provider: ROSE ANSARI Attending Provider: ROSE ANSARI Report Copy To: UNKNOWN, PHYSICIAN Signs & Symptoms: S46.011A Strain of musc/tend the rotator cuff of right shoulder, init E71Kezppnj: AthenaComments: , , , Ordering Provider - ROSE ANSARI MD , Exam: SHOULDER RIGHTAccession #: [id number] ===SHOULDER RIGHT 10/01/2017 4:36 PM EDT SIGNS AND SYMPTOMS: S46.011A Strain of musc/tend the rotator cuff of right shoulder, init I10 TECHNOLOGIST COMMENTS: History of right shoulder surgery 01/21/2017. Ortho follow up. QUESTION FOR THE RADIOLOGIST: , , , Ordering Provider - ROSE ANSARI MD , PROTOCOL: AP,Grashey and Axillary views were obtained. COMPARISON: January 21, 2017. FINDINGS: Soft tissues:No acute soft tissue findings. 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 Degenerative changes of the acromioclavicular joint. Joints:No dislocation. IMPRESSION: Unchanged alignment and appearance of right reverse shoulder arthroplasty. No evidence of complication. Approved by:Pushpa Jean Baptiste on 10/01/2017 4:45 PM EDT. I, Brandt Velez, have reviewed the images and report and concur with these findings. Electronically signed by:Brandt Velez. Transcribed by: [email or web address], User Resident: PUSHPA JEAN BAPTISTEElectronically Signed by: BRANDT VELEZ @ 10/02/2017 09:36 AMI personally read this/these film(s) with this resident Normal [facility] Comment on above: Order Comment: , , = ========= , Ordering Provider - ROSE ANSARI MD , Discharge Summaryon 01-29-20 Discharge Summary MR[id number] Gogo Carey Admitted: 01/21/2017 Discharged: 01/23/2017 Date of : 1940 Physician: Rose Ansari M.D. DISCHARGE SUMMARYATTENDING PHYSICIAN: Rose Ansari MD, Orthopedics.ADMISSION DIAGNOSIS: Right shoulder rotator cuff arthropathy.DISCHARGE DIAGNOSIS: Right shoulder rotator cuff arthropathy.HOSPITAL COURSE: The patient was admitted on January 21 for electiveright reverse total shoulder replacement. The procedure was completedwithout complications, the patient was transferred in stable condition tothe postoperative care unit. A drain was left in place postoperatively.They are removed on hospital day #1. She is given prophylactic antibioticspostoperatively . The patient recovered uneventfully following surgery andmet discharge criteria on postoperative day #1. However, she lacked a rideand remained in the hospital an additional day.DISCHARGE DISPOSITION: Home.DISCHARGE INSTRUCTIONS: The patient is nonweightbearing in the right upperextremity. She is encouraged to perform active range of motion at thewrist and elbow as well as passive range of motion of the shoulder. She isprovided medications for pain control. Dressing will remain in place untilpostoperative followup. She will follow up with Dr. Ansari in 2 weeks.Electronically Signed by:Rose Ansari M.D. 02/19/2017 06:23 P Rose Ansari M.D. I have reviewed this discharge summary and confirmed the resident'sdocumentation. Please note that there may be additional documentation fromme. Date Dict: 01/28/2017/03:22 P/Gauri Pagan M.D.Date Trans: 01/28/2017 04:03 P/mmoDN_JN:[id number] Normal [facility] CBC W/DIFFon 01-22-2017 Basophils Auto #/vol (Bld) 0.0 % Normal 0.0-2.0 [facility] Comment on above: Order Comment: No: D o not add to previous draw Performed By: #### 5 0103 ####[place] [id number] Eosinophils/100 leukocytes 0.0 % Normal 0.0-5.0 [facility] Comment on above: Order Comment: No: D o not add to previous draw Performed By: #### 5 0103 ####[facility] Erythrocyte distribution width Auto Ratio (RBC) 13.8 % Normal 11.5-16.9 [facility] Comment on above: Order Comment: No: D o not add to previous draw Performed By: #### 5 0103 ####[facility] Erythrocytes (RBC) 3.62 mill/mm3 Normal 3.50-5.50 [facility] Comment on above: Order Comment: No: D o not add to previous draw Performed By: #### 5 0103 ####[facility] [facility] [place] [place] [address], [facility] Hematocrit (HCT) 32.1 % Low 36.0-48.0 [facility] Comment on above: Order Comment: No: D o not add to previous draw Performed By: #### 5 0103 ####[facility]3000 [facility] Hemoglobin mass conc (Bld) 10.4 g/dL Low 12.0-15.0 [facility] Comment on above: Order Comment: No: D o not add to previous draw Performed By: #### 5 0103 ####[address] Lymphocytes/100 leukocytes 6.4 % Low 20.0-40.0 [facility] Comment on above: Order Comment: No: D o not add to previous draw Performed By: #### 5 0103 ####[facility] [facility].[address] MCH 28.7 pg Normal 24.0-32.0 [facility] Comment on above: Order Comment: No: D o not add to previous draw Performed By: #### 5 0103 ####[facility] [facility].[address] MCHC mass conc (RBC) 32.4 g/dL Normal 32.0-36.0 [facility] Comment on above: Order Comment: No: D o not add to previous draw Performed By: #### 5 0103 ####[facility] [facility] [place] [address], [facility] MCV 88.6 fL Normal 80.0-100.0 [facility] Comment on above: Order Comment: No: D o not add to previous draw Performed By: #### 5 0103 ####[facility]3000 [place] [address], [facility] METHOD Normal [facility] Comment on above: Order Comment: No: D o not add to previous draw Result Comment: Auto mated differential performedNormal RBC Morphology Performed By: #### 5 0103 ####[facility] [place] [address], [place] MONOS 9.0 % High 2-8 [facility] Comment on above: Order Comment: No: D o not add to previous draw Performed By: #### 5 0103 ####[facility] [place] [address], [facility] Neutrophils/100 leukocytes 84.6 % High 50-70 [facility] Comment on above: Order Comment: No: D o not add to previous draw Performed By: #### 5 0103 ####[facility] [place] [address], [facility] PLAT CNT 312 Thou/mm3 Normal 100-400 [facility] Comment on above: Order Comment: No: D o not add to previous draw Performed By: #### 5 0103 ####[facility] [place] [address], [facility] WBC (Leukocytes) 8.0 Thou/mm3 Normal 4.0-10.0 [facility] Comment on above: Order Comment: No: D o not add to previous draw Performed By: #### 5 0103 ####[facility] Operative Reporton 7 Operative Report MR#: [id number] [facility] 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 and chronic retractedmassive rotator cuff tear.PROCEDURE PERFORMED: Right shoulder reverse total shoulder arthroplasty.POSTOPERATIVE DIAGNOSES: Right shoulder severe end-stage glenohumeraldegenerative joint disease with severe humeral head avascular necrosis andcollapse and chronic retracted massive rotator cuff tear.RESIDENT: Gauri Pagan M.D., PGY-3.ANESTHESIA: General anesthesia with interscalene brachial plexus block.IMPLANTS: We used [employer] comprehensive reverse tall shoulder system withmini baseplate, 6.5 mm cancellous compression screw x1, 4.75 mm lockingscrews x4, size 36 mm diameter, standard glenosphere with +2.5 mm inferioroffset, size 10 Press-Fit mini humeral stem, size 44 mm diameter +5 mmhumeral tray with 44 mm diameter, 36 mm curvature standard polyethylenehumeral bearing.INDICATIONS FOR PROCEDURE: Ms. Carey is a 76-year-old female whopresented to us with progressive worsening pain of the right shoulder. Shewas diagnosed with right shoulder severe end-stage glenohumeraldegenerative joint disease with severe avascular necrosis of the humeralhead with severe collapse and the chronic retracted massive rotator cufftear. She tried extensive conservative management in the form of activitymodification, medication, physical therapy and injections with no relief.As she failed conservative management, she continued to have significantpain with functional limitations. As the pain has been interfering withher daily activities of living, the available social options were discussedwith her including the option of right shoulder reverse total shoulderarthroplasty. Risks, benefits, and alternatives were discussed with herand she had agreed to proceed.History and physical also. The procedure was discussed with her in detailin the preoperative holding area, informed consent was obtained, and theright shoulder was identified and marked. She was given an interscalenebrachial plexus block by anesthesia in the holding. Preoperativeantibiotics were given in the form of 2 g of Ancef and she was taken to theoperating room.DESCRIPTION OF THE PROCEDURE: The patient was placed supine on theoperating table. General anesthesia was induced. EPC cuffs were appliedon the bilateral lower extremities. A Langford catheter was placed. She wasplaced in a modified beach chair position on the standard operating tablewith captain's chair extension with the head secured well in the headholder and with all the bony prominence well padded. Right shoulder andright upper extremity was prepped and draped in a sterile standard fashion.A complete surgical time-out was performed. A longitudinal skin incisionwas made over the anterior aspect of the right shoulder along thedelto-pectoral interval starting proximally or the distal end of theclavicle and extending distally in line with the coracoid towards thedeltoid insertion just distal to the anterior axillary fold. Incision wasdeepened down through the subcutaneous tissues and hemostasis was achieved.The deltopectoral lymph node was identified and the cephalic vein wasmobilized medially along with the pectoralis major and deltoid wasretracted laterally. The clavipectoral fascia was incised along thelateral border of the conjoined tendon. The upper 5-mm of the pectoralismajor insertion was released. There was extensive scarring noted on thedeep surface of the deltoid as well as along the anterior aspect of thesubscapularis to the undersurfaces of the conjoined tendon. The subdeltoidand subacromial adhesions were completed released and the deltoid wascompletely mobilized. The subacromial bursa was completely excised. Theanterior humeral circumflex vessels were identified and were cauterized.The subscapularis tendon was found to be torn and retracted with anteriorcapsular thickening and fibrosis. Anterior capsulotomy was performed alongthe lesser tuberosity and we were not able to identify any remainingportion of the subscapularis tendon in its upper two thirds. Thesupraspinatus and the infraspinatus appeared to be chronically torn andcompletely retracted medial to the glenoid. The teres minor was found edelmira intact. There were severe end-stage degenerative changes noted in theglenohumeral joint including complete loss of articular cartilage, severesclerosis and flattening of the humeral head and with extensive osteophyteformation and with copious amounts of serous fluid. There are no signs ofinfection. The retracted and fibrosed portions of the supraspinatus andinfraspinatus were completely excised. The long-head of the biceps tendonwas found to be completely torn and the biceps anchor was completelyexcised. An inferior capsule release was performed along the inferiorhumeral neck taking care to protect the axillary nerve. The inferiorhumeral osteophytes were completely excised. Shoulder was dislocated.The humeral osteotomy was performed through the anatomical neck reproducinganatomic retroversion. An entry into the humeral canal was madeimmediately about 5 mm medial and posterior to the bicipital groove and thehumerus was sequentially reamed to size 10. The humerus was thensequentially broached up to size 10. The size 10 broach was found to becompletely seated and axially and rotationally stable with the medialcalcar intact and in 30-40 degrees of retroversion. The broach was left inplace and the broach handle was removed. The shoulder was brought intoneutral flexion and the glenoid was circumferentially exposed by retractingthe proximal humerus posteriorly. Complete capsulotomy was performed. Theglenoid labrum was excised circumferentially, which appeared to behypertrophied significantly. The inferior capsule was completely released,taking care to identify to protect the axillary nerve. All the remnants ofthe subacromial space were completely excised. Once we are able to achievethe circumferential exposure of the glenoid, glenoid was sized to a minibase plate and the mini base plate guide was applied to the face of theglenoid and the guide pin was placed into the glenoid with a slightinferior tilt. The central fixed wing pilot hole was drilled and the glenoid wasreamed down to the subchondral bone. The wound was irrigated. A finalporus-coated mini-baseplate was impacted into the glenoid and was securedand was compressed against by placing a 6.5 mm central compression screw.The baseplate was secured by placing 4 additional locking screws by placingthe inferior screw first in an inferior-anterior direction along theinferior scapular pillar followed by the placement of the superior lockingscrew superiorly into the base of the coracoid, followed by the insertionof the anterior and posterior locking screws. Screws were completelytightened. The wound was thoroughly irrigated. A final 36 mm diameterstandard final glenosphere with a 2.5 mm of inferior tilt was secured ontoglenoid base plate. Trial reduction was then performed using 44 mmdiameter, 36, +5 mm trial humeral tray with standard humeral bearing. Theshoulder was found to have full forward flexion, full adduction, stable inexternal rotation, able to reach the opposite shoulder, the patient'smouth, and the patient's top of the head with no limitation of range ofmotion. The tension along the conjoined tendon and the deltoid was foundto be optimized with the elbow in extension. The shoulder was found to bestable in extension, abduction, and external rotation. Shoulder wasdislocated and the trial components were removed. The proximal humerus wasthoroughly irrigated. A final Size #10 Press Fit mini humeral stem wasimpacted in the proximal humerus in 30-40 degrees of retroversion werecompletely seated and axially and rotationally stable with medial calcarintact. The taper was then cleaned and final size 44 mm diameter, +5 mmheight humeral tray with 36 mm curvature standard polyethylene humeralbearing was then assembled together and was secured on to the taper on thestem. Shoulder was finally relocated. Wound was slowly irrigated. Amedium Hemovac drain was introduced deep in the joint. The deltopectoralinterval was approximated using a running 0 Prolene locking suture.Subcutaneous tissue was irrigated and was approximated using a 3-0 Vicrylinterrupted deep dermal sutures and the skin was approximated using the 3-0V-loc running subcuticular suture. The extremity was cleaned and incisionwas sealed with Dermabond. A sterile Mepilex dressing was applied. Theright upper extremity was placed in an abduction sling. The patient wasthen awakened from anesthesia, and was extubated to the recovery in stablecondition. Langford catheter was removed at the end of the case. Sponge,needle, and instrument counts were found to be accurate.ESTIMATED BLOOD LOSS: 400 mL.COMPLICATION: None.DISPOSITION: The patient was transferred to the recovery in stablecondition. She will be nonweightbearing on the right upper extremity in anabduction splint. She will be admitted inpatient for medical management aswell as pain control. She was initiated on the passive elevation andpendulum exercises of right shoulder and range of motion exercises of theelbow, wrist, and hand on postoperative day #1. She will be placed on EPCcuffs for mechanical DVT prophylaxis. She will be discharged homesubsequently and will be seen in followup in the clinic in 2 weeks.Electronically Signed by:Rose Ansari M.D. 01/26/2017 09:17 P Rose Ansari M.D.Date Dict: 01/22/2017/08:44 Bereket/Rose Ansari M.D.Date Trans: 01/22/2017 05:59 P/[id number]_[id number] Normal [facility] ARTERIAL BLOOD GAS W/COOXon 01-21-2017 BASE EXCESS 0 mmol/L Normal -2-2 [facility] Comment on above: Performed By: #### 7 006, 83939, 78582, 92440 ####[facility] Bicarbonate (HCO3) 25 mmol/L Normal 23-27 [facility] Comment on above: Performed By: #### 7 66, 43064, 51396, 48510 ####[facility]3000 [facility] CO2 37 mmHg Normal 35-45 [facility] Comment on above: Performed By: #### 7 66, 43574, 37050, 84025 ####[facility] [facility] COHB 2 % High 0-1 [facility] Comment on above: Performed By: #### 7 66, 75347, 69473, 82523 ####[facility] METHB 1.0 % Normal 0.0-1.5 [facility] Comment on above: Performed By: #### 7 7, 88751, 27200, 40365 ####[facility] O2 saturation 96.4 % Normal 94.0-97.0 [facility] Comment on above: Performed By: #### 7 66, 21856, 56232, 57860 ####[facility] [facility] [place] [address], [facility] Oxygen in arterial blood 99 mm[Hg] Normal 75-100 [facility] Comment on above: Performed By: #### 7 0067, 88097, 35133, 43089 ####[address] [place] [address], [facility] pH of blood 7.43 [pH] Normal 7.35-7.45 [facility] Comment on above: Performed By: #### 7 0067, 78461, 00668, 67531 ####[address] [place] [address], [facility] THB 11.0 g/dL Low 12.0-15.0 [facility] Comment on above: Performed By: #### 7 0067, 49094, 38108, 22599 ####[address] CALCIUM IONIZED CBGLon 01-21 IONIZED CALCIUM 1.22 mmol/L Normal 1.13-1.32 [facility] Comment on above: Performed By: #### 7 0067, 04628, 41280, 49681 ####[address] POC GLUCOSE LABon 01-21-2017 Glucose mass conc 92 mg/dL Normal 70-100 [facility] Comment on above: Performed By: #### 8 5499 ####[address] [address], [place] [address] [place] [address] PORTABLE SHOULDER RIGHT 2 VW Son 01-21-2017 PORTABLE SHOULDER RIGHT 2 VWS [facility] [address] [place] [id number] Yarelis ent Name: GOGO CAREY : 1940Sex: FAge: Race: WhiteMRN: [id number]. Location: OUTPPatient Status: IVisit #: [id number] Date: 01/21/2017 7:40:00 PMCompleted Date: 01/21/2017 08:41 PMRequesting Provider: GAURI PAGAN Attending Provider: ROSE ANSARI Report Copy To: Signs & Symptoms: Post OPHistory: Patient history not availableComments: Hardware EvaluationExam: PORTABLE SHOULDER RIGHT 2 VWSAccession #: [id number] ===PORTABLE SHOULDER RIGHT 2 VWS 01/21/2017 8:41 PM EDT SIGNS AND SYMPTOMS: Post OP TECHNOLOGIST COMMENTS: post op right shoulder QUESTION FOR THE RADIOLOGIST: Hardware Evaluation PROTOCOL: AP,Grashey and Axillary views were obtained. 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 Transcribed by: [id number], User Resident: Electronically Signed by: KEMAL MCRAE @ 01/22/2017 11:45 AM Normal The [facility] Comment on above: Order Comment: Hardw are Evaluation POTASSIUM WHOLE BLOOD CBGLon 01-21-2017 Potassium molar conc 3.5 mmol/L Normal 3.4-5.2 [facility] Comment on above: Performed By: #### 7 [id number], 08157, [id number], [id number] ####[place] [id number] SODIUM WHOLE BLOOD CBGLon Sodium 137.0 mmol/L Normal 136.0-146. 0 [facility] Comment on above: Performed By: #### 7 [id number], [id number], [id number], [id number] ####[facility] [place] [address], [facility] CHEST AND LATERALon 01-16-20 CHEST AND LATERAL [facility] CenterDepartment of [address] [place] [address] Yarelis ent Name: GOGO CAREY : 1940Sex: FAge: Race: WhiteMRN: [id number]. Location: 84Patient Status: OVisit #: [id number] Date: 01/15/2017 3:05:00 PMCompleted Date: 01/15/2017 03:06 PMRequesting Provider: ROSE ANSARI Attending Provider: ROSE ANSARI Report Copy To: Signs & Symptoms: S46.011A Strain of musc/tend the rotator cuff of right shoulder, init [id number]: AthenaComments: , , Views (X-RAY, CHEST): PA , , , Ordering Provider - ROSE ANSARI MD , Rendering Provider - ROSE ANSARI MD , Exam: CHEST AND LATERALAccession #: [id number] ===CHEST AND LATERAL 01/15/2017 3:08 PM EDT SIGNS AND SYMPTOMS: S46.011A Strain of musc/tend the rotator cuff of right shoulder, init I10 TECHNOLOGIST COMMENTS: Patient states lump on anterior portion of upper chest. History of hypertension. QUESTION FOR THE RADIOLOGIST: , , Views (X-RAY, CHEST): PA , , , Ordering Walter ANSARI MD , Rendering Walter ANSARI MD , PROTOCOL: AP(PA) and Lateral views were obtained. COMPARISON: None FINDINGS: There is no pulmonary consolidation, pleural effusion, or pneumothorax. The aorta is tortuous The cardiomediastinal silhouette and pulmonary vasculature are within normal limits. No acute osseous abnormalities. IMPRESSION: No radiographic evidence of acute cardiopulmonary process. Electronically signed by:Evaristo Buchanan. Transcribed by: [email or web address], User Resident: Electronically Signed by: EVARISTO BUCHANAN @ 01/15/2017 03:50 PM Normal [facility] Comment on above: Order Comment: , , V iews (X-RAY, CHEST): PA , , , Ordering Walter ANSARI MD , Rendering Walter ANSARI MD , Vital Signs Date Time Vital Sign Value Performing Clinician Tom jennings 06-30-2023 21:04-0500 Body temperature 97 [degF] REAL ESTATE SALESPERSON-C Adela Baker Work Phone: [facility] 06-30-2023 21:04-0500 Diastolic blood pressure 72 mm[Hg] REAL ESTATE SALESPERSON-C Adela Baker Work Phone: [facility] 06-30-2023 21:04-0500 Heart rate 64 /min REAL ESTATE SALESPERSON-C Adela Baker Work Phone: [facility] 06-30-2023 21:04-0500 Respiratory rate 20 /min REAL ESTATE SALESPERSON-C Adela Baker Work Phone: [facility] 06-30-2023 21:04-0500 SaO2% (BldA) [Mass fraction] 97 % REAL ESTATE SALESPERSON-C Adela Baker Work Phone: [facility] 06-30-2023 21:04-0500 Systolic blood pressure 128 mm[Hg] REAL ESTATE SALESPERSON-C Adela Olivia Work Phone: [facility] 06-30-2023 14:21-0500 Body height 152.4 cm REAL ESTATE SALESPERSON-C Adela Olivia Work Phone: [facility] 06-30-2023 14:21-0500 Body weight 89.6 kg REAL ESTATE SALESPERSON-C Adela Olivia Work Phone: [facility] 05-07-2023 18:25-0500 Diastolic blood pressure 94 mm[Hg] REAL ESTATE SALESPERSON-C Adela Olivia Work Phone: [facility] 05-07-2023 18:25-0500 Heart rate 98 /min REAL ESTATE SALESPERSON-C Adela Olivia Work Phone: [facility] 05-07-2023 18:25-0500 Respiratory rate 18 /min REAL ESTATE SALESPERSON-C Adela Olivia Work Phone: [facility] 05-07-2023 18:25-0500 SaO2% (BldA) [Mass fraction] 96 % REAL ESTATE SALESPERSON-C Adela Olivia Work Phone: [facility] 05-07-2023 18:25-0500 Systolic blood pressure 137 mm[Hg] REAL ESTATE SALESPERSON-C Adela Olivia Work Phone: [facility] 05-07-2023 15:54-0500 Body temperature 97.5 [degF] REAL ESTATE SALESPERSON-C Adela Olivia Work Phone: [facility] 05-07-2023 15:51-0500 Body height 154.94 cm REAL ESTATE SALESPERSON-C Adela Olivia Work Phone: [facility] 05-07-2023 15:51-0500 Body weight 77.11 kg REAL ESTATE SALESPERSON-C Adela Olivia Work Phone: [facility] 03-02-2023 19:24-0400 Diastolic blood pressure 78 mm[Hg] REAL ESTATE SALESPERSON-C Adela Olivia Work Phone: [facility] 03-02-2023 19:24-0400 Heart rate 92 /min REAL ESTATE SALESPERSON-C Adela Olivia Work Phone: [facility] 03-02-2023 19:24-0400 Respiratory rate 20 /min REAL ESTATE SALESPERSON-C Adela Olivia Work Phone: [facility] 03-02-2023 19:24-0400 SaO2% (BldA) [Mass fraction] 98 % REAL ESTATE SALESPERSON-C Adela Olivia Work Phone: [facility] 03-02-2023 19:24-0400 Systolic blood pressure 148 mm[Hg] REAL ESTATE SALESPERSON-C Adela Olivia Work Phone: [facility] 03-02-2023 15:36-0400 Body height 152.4 cm REAL ESTATE SALESPERSON-C Adela Olivia Work Phone: [facility] 03-02-2023 15:36-0400 Body weight 78.01 kg REAL ESTATE SALESPERSON-C Adela Olivia Work Phone: [facility] 03-02-2023 15:35-0400 Body temperature 97.9 [degF] REAL ESTATE SALESPERSON-C Adela Olivia Work Phone: [facility] 12-16-2022 23:29-0400 Diastolic blood pressure 90 mm[Hg] REAL ESTATE SALESPERSON-C Adela Olivia Work Phone: [facility] 12-16-2022 23:29-0400 Heart rate 94 /min REAL ESTATE SALESPERSON-C Adela Olivia Work Phone: [facility] 12-16-2022 23:29-0400 Respiratory rate 19 /min REAL ESTATE SALESPERSON-C Adela Olivia Work Phone: [facility] 12-16-2022 23:29-0400 SaO2% (BldA) [Mass fraction] 97 % REAL ESTATE SALESPERSON-C Adela Olivia Work Phone: [facility] 12-16-2022 23:29-0400 Systolic blood pressure 141 mm[Hg] REAL ESTATE SALESPERSON-C Adela Olivia Work Phone: [facility] 12-16-2022 21:06-0400 Body height 152.4 cm REAL ESTATE SALESPERSON-C Adela Olivia Work Phone: [facility] 12-16-2022 21:06-0400 Body weight 83.6 kg REAL ESTATE SALESPERSON-C Adela Olivia Work Phone: [facility] 12-16-2022 15:24-0400 Body temperature 97.7 [degF] REAL ESTATE SALESPERSON-C Adela Olivia Work Phone: [facility] 10-11-2022 17:37-0400 Body height 154.94 cm REAL ESTATE SALESPERSON-C Adela Olivia Work Phone: [facility] 10-11-2022 17:37-0400 Body temperature 98.4 [degF] REAL ESTATE SALESPERSON-C Adela Olivia Work Phone: [facility] 10-11-2022 17:37-0400 Body weight 87.7 kg REAL ESTATE SALESPERSON-C Adela Olivia Work Phone: [facility] 10-11-2022 17:37-0400 Diastolic blood pressure 70 mm[Hg] REAL ESTATE SALESPERSON-C Adela Olivia Work Phone: [facility] 10-11-2022 17:37-0400 Heart rate 90 /min REAL ESTATE SALESPERSON-C Adela Olivia Work Phone: [facility] 10-11-2022 17:37-0400 Respiratory rate 20 /min REAL ESTATE SALESPERSON-C Adela Olivia Work Phone: [facility] 10-11-2022 17:37-0400 SaO2% (BldA) [Mass fraction] 96 % REAL ESTATE SALESPERSON-C Adela Olivia Work Phone: [facility] 10-11-2022 17:37-0400 Systolic blood pressure 145 mm[Hg] REAL ESTATE SALESPERSON-C Adela Olivia Work Phone: [facility] 08-18-2022 22:00-0400 Diastolic blood pressure 78 mm[Hg] REAL ESTATE SALESPERSON-C Adela Olivia Work Phone: [facility] 08-18-2022 22:00-0400 Heart rate 68 /min REAL ESTATE SALESPERSON-C Adela Olivia Work Phone: [facility] 08-18-2022 22:00-0400 Respiratory rate 18 /min REAL ESTATE SALESPERSON-C Adela Baker Work Phone: [facility] 08-18-2022 22:00-0400 SaO2% (BldA) [Mass fraction] 100 % REAL ESTATE SALESPERSON-C Adela Olivia Work Phone: [facility] 08-18-2022 22:00-0400 Systolic blood pressure 124 mm[Hg] REAL ESTATE SALESPERSON-C Adelakayley Baker Work Phone: [facility] 08-18-2022 21:03-0400 Body height 152.4 cm REAL ESTATE SALESPERSON-C Adela Olivia Work Phone: [facility] 08-18-2022 21:03-0400 Body temperature 98.6 [degF] REAL ESTATE SALESPERSON-C Adela Olivia Work Phone: [facility] 08-18-2022 21:03-0400 Body weight 86.18 kg REAL ESTATE SALESPERSON-C Adela Baker Work Phone: [facility] Encounters Encounter Date Encounter Type Care Provider Facility Start: 07-18-2023 End: 07-19-2023 Emergency department patient visit Juan Kay Facility:[facility] Start: 06-30-2023 End: 06-30-2023 Emergency department patient visit REAL ESTATE SALESPERSON-C Adela Olivia Work Phone: [facility] Work Phone: Start: 05-28-2023 End: 05-28-2023 ambulatory Carine Montoya Facility:[facility] Start: 05-28-2023 End: 05-28-2023 ambulatory REAL ESTATE SALESPERSON-C Adela Baker Work Phone: [facility] Work Phone: Start: 05-28-2023 End: 05-28-2023 Patient encounter procedure REAL ESTATE SALESPERSON-C Adela Baker Work Phone: [facility] [place] Work Phone: Start: 05-07-2023 End: 05-07-2023 Emergency department patient visit Adela Baker Facility:[facility] Start: 05-07-2023 End: 05-07-2023 Emergency department patient visit REAL ESTATE SALESPERSON-C Adela Baker Work Phone: [facility] Work Phone: Start: 03-02-2023 End: 03-02-2023 Emergency department patient visit Adela Baker Facility:[facility] Start: 03-02-2023 End: 03-02-2023 Emergency department patient visit REAL ESTATE SALESPERSON-C Adela Baker Work Phone: [facility] Work Phone: Start: 12-16-2022 End: 12-17-2022 Emergency department patient visit Adela Baker Facility:[facility] Start: 12-16-2022 End: 12-17-2022 Emergency department patient visit REAL ESTATE SALESPERSON-C Adela Baker Work Phone: [facility] Work Phone: Start: 10-11-2022 End: 10-11-2022 Emergency department patient visit REAL ESTATE SALESPERSON-C Adela Baker Work Phone: [facility] Work Phone: Start: 09-16-2022 End: 09-16-[address] ALISA MCDERMOTT . Facility: Start: 08-18-2022 End: 08-19-2022 Emergency department patient visit Jay Carvajal Facility:[facility] Start: 08-18-2022 End: 08-18-2022 Emergency department patient visit REAL ESTATE SALESPERSON-C Adela Baker Work Phone: [facility] Work Phone: Start: 08-13-2022 End: 08-13-2022 ambulatory REAL ESTATE SALESPERSON-C Adela Baker Work Phone: [facility] Work Phone: Start: 08-13-2022 End: 08-13-2022 Patient encounter procedure REAL ESTATE SALESPERSON-C Adelakayley Baker Work Phone: [facility] Work Phone: Start: 07-20-2022 End: 07-20-2022 ambulatory ADELA BAKER Facility: Start: 10-01-2021 End: 10-02-2021 ambulatory ADELA BAKER Facility: Start: 10-01-2017 End: 10-02-2017 Ambulatory ROSE ANSARI Facility:[facility] Start: 01-21-2017 End: 01-23-2017 Evaluation and management of inpatient ROSE ANSARI Facility:[facility] Start: 01-15-2017 End: 01-16-2017 Ambulatory ROSE Antonio COTY Facility:[facility] Start: 12-11-2016 End: 12-12-2016 Ambulatory DEFAULT PHYSICIAN Facility:[facility] Start: 12-11-2016 End: 12-12-2016 Ambulatory DEFAULT PHYSICIAN Facility:[facility] Procedures Date Procedure Procedure Detail Performing Clinician Start: 06-30-2023 Computed tomography of abdomen and pelvis with contrast REAL ESTATE SALESPERSON-C Adela Olivia Work Phone: Start: 03-02-2023 Diagnostic radiograp hy of abdomen REAL ESTATE SALESPERSON-C Adela Olivia Work Phone: Start: 12-16-2022 Diagnostic radiograp hy of abdomen REAL ESTATE SALESPERSON-C Adela Olivia Work Phone: Start: 01-21-2017 MEASURE OF ARTERIAL SATURATION, PERIPHERAL, PERC APPROACH ROSE ANSARI Start: 01-21-2017 REPLACE OF R SHOULDE R JT WITH REV BL \T\ SOCKT, OPEN APPROACH ROSE ANSARI Plan of Treatment Date Care Activity Detail Author Patient Education [facility] Work Phone: Patient referral [facility] Work Phone: Payers Date Payer Category Payer Self-pay [id number] 1957 Medicaid [id number] 1957 Medicare [id number] 1940 Unknown [id number] 2.16.84 [id number] 1940 Unknown [id number] 2.16.84 [id number] 1940 Unknown [id number] 2.16.84 [id number] Medicare [id number] Medicare Medicare [id number] Unknown Unknown HCAP/HFA/FAP Active [id number] Unknown [id number] 2.16.8 [id number] Unknown [id number] 2.16.8 [id number] Unknown [id number] 2.16.8 [id number] Unknown [id number] 2.16.8 [id number] Unknown [id number] 2.16.8 [id number] Unknown [id number] 2.16.8 [id number] Unknown [id number] 2.16.8 [id number] Unknown [id number] 2.16.8 [id number] Social History Date Type Detail Facility [facility]: [facility] Start: 1940 Sex Assigned At Female F [facility] Start: 08-18-2022 End: 06-30-2023 Tobacco smoking status [facility] Never smoked tobacco (finding) [place] Discharge instructions 06-30-2023 Note Date & Type Note Facility 06-30-2023 Hospital Discharg e instructions Additional Instructions Please return to emergency department for any new or worrisome symptoms including any return of abdominal pain, vomiting, fever, not not passing gas. Follow-up with your family physician within the next 3 to 5 days. Take stool softeners as directed. [facility] Work Phone: Evaluation note Note Date & Type Note Facility Evaluation note No assessment information availa ble [facility] Work Phone: Hospital Discharge instructions Note Date & Type Note Facility Hospital Discharge instructions Additional Instructions Make sure you are drinking at least 1 and half liters of water a day. Take Metamucil daily. If you are still constipated take Colace. Still constipated after this take MiraLAX. Talk to your doctor about other pain medication options besides tramadol which may worsen constipation. Follow-up with the PCP for reevaluation 5 7 days. [facility] Work Phone: Hospital Discharge instructions Note Date & Type Note Facility Hospital Discharge instructions Additional Instructions We gave you a dose of steroids to help with itching. Please try the Atarax for the itching as well as well as for anxiety. Additionally please use MiraLAX daily for your constipation. Please continue following closely with your primary care provider as well as your pre parole counseling aide. Please return to the emergency department if you develop any worsening or concerning symptoms. [facility] Work Phone: Summary Purpose Family History No Family History Records Found Relationship Condition Age at Onset Recorded Date/T aric Not Specified No pertinent family history Unknown Relationship Condition Age at Onset Recorded Date/T aric Not Specified No pertinent family history Unknown father Heart disease Unknown Unknown Not Specified Malignant neoplasm Unknown Advance Directives No Advanced Directives Records Found Advance Directive Response Recorded Date/ Time Advance Directives No January 2:54pm Advance Directive Response Recorded Date/ Time Advance Directives No January 1:54pm Chief Complaint and Reason for Visit Chief Complaint 780.52 278.00 Chief Complaint 780.52 278.00 abd pain Chief Complaint abd pain hot red cat bite 10/05/22 Chief Complaint bowel/gi pain Constipation Chief Complaint Constipation rash sob Chief Complaint Constipation rash sob R21 Chief Complaint rash sob R21 poss bowel blockage Additional Source Comments INFORMATION SOURCE (unrecogn ized section and content) DATE CREATED AUTHOR 10/29/2017 [facility] DATE CREATED AUTHOR AUTHOR'S ORGANIZ ATION 12/07/2020 [facility] DATE CREATED AUTHOR AUTHOR'S ORGANIZ ATION 09/19/2022 [facility] DATE CREATED AUTHOR AUTHOR'S ORGANIZ ATION 07/30/2023 [facility] Care Teams (unrecognized sec tion and content) Team Status: Active Member Role Status Dates Adela Baker REAL ESTATE SALESPERSON-C Primary Care Provider Active Team Status: Inactive Member Role Status Dates Adela Baker REAL ESTATE SALESPERSON-C Primary Care Provider, Referr ing Provider Active Lukas Fried MD Attending Provider Active Team Status: Inactive Member Role Status Dates Adela Baker REAL ESTATE SALESPERSON-C Primary Care Provider Active Jay Carvajal DO Emergency Provider Active Team Status: Inactive Member Role Status Dates Adela Baker REAL ESTATE SALESPERSON-C Primary Care Provider Active Juan Henao DO Emergency Provider Active Team Status: Inactive Member Role Status Dates Adela Baker REAL ESTATE SALESPERSON-C Primary Care Provider Active Camille Dennison DO Emergency Provider Active Team Status: Inactive Member Role Status Dates Adela Baker REAL ESTATE SALESPERSON-C Primary Care Provider Active Start: March 02, 2023 End: March 02, 2023 Juan Henao DO Emergency Provider Active St art: March 02, 2023 End: March 02, 2023 Team Status: Inactive Member Role Status Dates Adela Baker REAL ESTATE SALESPERSON-C Primary Care Provider Active Start: May 07, 2023 End: May 07, 2023 Camille Dennison DO Emergency Provider Active Start: May 07, 2023 End: May 07, 2023 Team Status: Inactive Member Role Status Dates Adela Baker REAL ESTATE SALESPERSON-C Primary Care Provider Active Start: May 28, 2023 End: May 28, 2023 Carine Montoya MD Attending Provider Active Start: May 28, 2023 End: May 28, 2023 Team Status: Inactive Member Role Status Dates Adela Baker REAL ESTATE SALESPERSON-C Primary Care Provider Active Start: June 30, 2023 End: June 30, 2023 Ashleigh Jackson MD Emergency Provider Active Start: June 30, 2023 End: June 30, 2023 Goals (unrecognized section and content) Goals may be documented in a n alternate sectionGoals may be documented in an alternate sectionGoals may be documented in an alternate sectionGoals may be documented in an alternate sectionGoals may be documented in an alternate sectionGoals may be documented in an alternate sectionGoals may be documented in an alternate section FOR RECORDS PERTAINING TO PATIENTS WHO ARE OR HAVE BEEN ENROLLED IN A CHEMICAL DEPENDENCY/SUBSTANCEABUSE PROGRAM, SOME INFORMATION MAY BE OMITTED. This clinical summary was aggregated from multiple sources. Caution should be exercised in using it in the provision of clinical care. This summary normalizes information from multiple sources, and as a consequence, information in this document may materially change the coding, format and clinical context of patient data. In addition, data may be omitted in some cases. CLINICAL DECISIONS SHOULD BE BASED ON THE PRIMARY CLINICAL RECORDS. [facility]. provides no warranty or guarantee of the accuracy or completeness of information in this document.
[2023-10-24 15:12] LABS: Free T4 0.96 ng/dL (0.76-1.46)
[2023-10-24 15:19] LABS: Free T3 2.43 pg/mL (2.18-3.98); Thyroid Stimulating Hormone 2.324 uIU/mL (0.358-3.740)
== END 2023-10-24 14:06 | disposition home or self-care (01) ==
LOC: LAB 14:09
PROVIDERS: PCP Nurse Practitioner Family; Visit Provider Nurse Practitioner Family
DX: E07.9 Disorder of thyroid, unspecified (principal)
CPT/HCPCS: 36415; 84439; 84443; 84481

== ENCOUNTER 2023-12-02 14:35 | Emergency (ER) | payer MEDICARE, MEDICAID, SELFPAY ==
[2023-12-02 14:40] VITALS: BP 100/64; PULSE 50; TEMP 36.6; O2SAT 96; BMI 32.8
--- OUTSIDE RECORDS SUMMARY | 2023-12-02 15:01 | XMS_ITS | CCD ---
Author Organization [facility] Care Team Providers Care Grinder Chipper Name Role Phone PHYSICIAN, DEFAULT Unavailable Unavailable PHYSICIAN, DEFAULT Unavailable Unavailable PHYSICIAN, DEFAULT Unavailable Unavailable PHYSICIAN, DEFAULT Unavailable Unavailable RAMINENI, ROSE K Unavailable Unavailable RAMINENI, ROSE K Unavailable Unavailable UNKNOWN, PHYSICIAN Unavailable Unavailable UNKNOWN, PHYSICIAN Unavailable Unavailable RAMINENI, ROSE K Unavailable Unavailable RAMINENI, ROSE K Unavailable Unavailable UNKNOWN, PHYSICIAN Unavailable Unavailable UNKNOWN, PHYSICIAN Unavailable Unavailable TN Unavailable Unavailable RAMINENI, ROSE K Unavailable Unavailable RAMINENI, ROSE K Unavailable Unavailable RAMINENI, ROSE K Unavailable Unavailable UNKNOWN, PHYSICIAN Unavailable Unavailable UNKNOWN, PHYSICIAN Unavailable Unavailable LAURA Baker Adelakayley Rizvi Primary Care Provider LAURA Baker Adelakayley Rizvi Referring Provider [phone] MD Lukas Fried Attending Provider DO Jay Carvajal Emergency Provider ADELA Navarrete Primary Care Unavailable RADHA MUNIZ Admitting Unavailable RADHA MUNIZ Attending Unavailable RADHA MUNIZ Consulting Unavailable LUKAS HENRY Consulting Unavailable OLIVIA, ADELA Admitting Unavailable ADELA BAKER Attending Unavailable OLIVIA, ADELA Consulting Unavailable OLIVIA, ADELA Primary Care Unavailable DR ALISA ORELLANA Attending Unavailable BLANCA MCCORMICK Consulting Unavailab ADELA Herman Primary Care Unavailable DR ALISA ORELLANA Admitting Unavailable HECTOR GONZALEZ Consulting Unavailable LAURA Baker Primary Care Provider [phone] DO Juan Henao Emergency Provider LAURA Baker Primary Care Provider [phone] DO Jay Carvajal Emergency Provider DO Juan Bruno Emergency Provider LAURA Baker Adela Belkys Primary Care Provider DO Juan Henao Emergency Provider [phone] DO Camille Dennison Emergency Provider [phone] MD Carine Montoya Attending Provider [phone] LAURA Baker Adela Belkys Primary Care Provider MD Ashleigh Jackson Emergency Provider LAURA aBker Adela Belkys Primary Care Provider [phone] LAURA Baker Adela Belkys Attending Provider Olivia Adela Belkys Primary Care Unavailable Juan Henao Admitting Unavailable Juan Henao Attending Unavailable Camille Dennison Admitting Unavailable Camille Dennison Attending Unavailable Olivia, Adela Belkys Primary Care Unavailable Ashleigh Jackson Admitting Unavailable Ashleigh Jackson Attending Unavailable Olivia, Adela Belkys Primary Care Unavailable Juan Kay Admitting Unavailable Juan Kay Attending Unavailable Olivia, Adela Belkys Primary Care Unavailable Olivia, Adela Belkys Attending Unavailable Olivia, Adela Belkys Admitting Unavailable Olivia, Adela Belkys Primary Care Unavailable Carine Montoya Admitting Unavailable Carine Montoya Attending Unavailable Olivia, Adela Belkys Primary Care Unavailable Olivia, Adela Belkys Primary Care Unavailable Jay Carvajal Admitting Unavailable Jay Carvajal Attending Unavailable Allergies Allergy Classification Reported Allergen(s) Allergy Type Date of Onset Reaction(s) Facility (1 source) NO KNOWN DRUG ALLERGIES; Translations: [NO KNOWN DRUG ALLERGIES] Propensity to adverse reactions (disorder) 7 [facility] (1 source) No Known Allergies; Translations: [No Known Allergies] Propensity to adverse reactions (disorder) [facility] (6 sources) oxyCODONE; Translations: [oxycodone] Drug Allergy 7 [facility] (1 source) Acetaminophen / oxyCODONE Drug Allergy The [facility] Medications Current Medications Medication Drug Class(es) Dates Sig (Normalized) Sig (Original) amoxicillin 875 mg / clavulanate 125 mg oral tablet (6 sources) Penicillin-class Antibacterial Start: 10-11-2022 take 1 tablet by mouth twice daily Amoxicillin-Pot Clavulanate Active 1 TAB PO Twice daily October 11, 2022 12:00am docusate sodium 100 mg oral capsule (9 sources) Start: 08-18-2022 take 1 capsule by mouth twice daily Docusate Sodium (Colace) 100 mg capsule Active 100 MG PO Twice daily 14 June 30, 2023 1:00am DULoxetine 60 mg delayed release oral capsule (8 sources) Serotonin and Norepinephrine Reuptake Inhibitor Start: 01-20-2017 take 60 mg by mouth once daily Duloxetine Active 60 MG PO Daily January 20, 2017 12:00am hydrOXYzine hydrochloride 25 mg oral tablet (4 sources) Antihistamine Start: 05-07-2023 take 25 mg by mouth every eight hours Hydroxyzine Hcl Active 25 MG PO Q8H May 07, 2023 1:00am levothyroxine sodium 0.088 mg oral tablet (8 sources) l-Thyroxine Start: 01-20-2017 take 88 ug by mouth once daily Levothyroxine Active 88 MCG PO Daily January 20, 2017 12:00am meloxicam 15 mg oral tablet (8 sources) Nonsteroidal Anti-inflammatory Drug Start: 01-20-2017 take 15 mg by mouth once daily Meloxicam Active 15 MG PO Daily January 20, 2017 12:00am Mineral Oil (5 sources) Start: 12-16-2022 take 1 mL by mouth once daily Mineral Oil Active 15 ML PO Daily 1200 December 15, 2022 11:00pm Start: 12-16-2022 take 1 mL by mouth once daily Mineral Oil Active 15 ML PO Daily 1200 December 16, 2022 12:00am polyethylene glycol 3350 39726 mg powder for oral solution (20 sources) Osmotic Laxative Start: 08-18-2022 Polyethylene Glycol 3350 (Miralax) 17 gram powder in packet Active 17 GM PO Daily 30 May 07, 2023 1:00am predniSONE 20 mg oral tablet (8 sources) Start: 02-01-2017 take 60 mg by mouth once daily at mealtime Prednisone Active 60 MG PO Daily 15 February 01, 2017 12:00am administer with food or milk Psyllium Husk (Metamucil) 0.4 gram capsule (7 sources) Start: 08-18-2022 Psyllium Husk (Metamucil) 0.4 gram capsule Active 0.4 GM PO Daily August 17, 2022 11:00pm Start: 08-18-2022 Psyllium Husk (Metamucil) 0.4 gram capsule Active 0.4 GM PO Daily August 18, 2022 12:00am Sennosides (Senna) 8.6 mg capsule (2 sources) Start: 06-30-2023 take 1 capsule by mouth twice daily Sennosides (Senna) 8.6 mg capsule Active 8.6 MG PO Twice daily 14 June 30, 2023 1:00am Start: 06-30-2023 take 1 capsule by mo uth twice daily Sennosides (Senna) 8.6 mg capsule Active 8.6 MG PO Twice daily 14 June 30, 2023 12:00am simvastatin 40 mg oral tablet (8 sources) HMG-CoA Reductase Inhibitor Start: 01-20-2017 take 40 mg by mouth once daily Simvastatin Active 40 MG PO Daily January 20, 2017 12:00am traMADol hydrochloride 50 mg oral tablet (8 sources) Opioid Agonist Start: 01-20-2017 Tramadol Activ e 0.5 TAB PO EVERY 1-4 HOURS January 20, 2017 12:00am Problems Active Problems Problem Classification Problem Date Documented Da te Episodic/Chronic Anxiety disorders (4 sources) Anxiety; Translations: [Anxiety disorder, unspecified] 05-07-2023 Chronic Disorders of lipid metabolism (1 source) Hyperlipidemia, unspecified; Translations: [HYPERLIPIDEMIA UNSPECIFIED] Onset: 10-04-2021 Chronic Essential hypertension (1 source) Essential (primary) hypertension; Translations: [ESSENTIAL (PRIMARY) HYPERTENSION] Onset: 01-15-2017 Chronic Gout and other crystal arthropathies (8 sources) Articular gout; 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, 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 Intestinal obstruction without hernia (13 sources) Fecal impaction; Translations: [Fecal impaction] Onset: 07-22-2022 08-18-2022 Episodic Menopausal disorders (1 source) Hormone replacement therapy; Translations: [HORMONE REPLACEMENT THERAPY] Onset: 09-18-2022 Episodic Osteoarthritis (3 sources) Primary osteoarthritis, right shoulder; Translations: [PRIMARY OSTEOARTHRITIS, RIGHT SHOULDER] Onset: 01-21-2017 Chronic Other aftercare (1 source) Other usp (current) drug therapy; Translations: [OTH PRISONER CLASSIFICATION INTERVIEWER CURRENT DRUG THERAPY] Onset: 09-18-2022 Episodic Other bone disease and musculoskeletal deformities (1 source) Other osteonecrosis, right shoulder; Translations: [OTHER OSTEONECROSIS, RIGHT SHOULDER] Onset: 01-21-2017 Chronic Other connective tissue disease (1 source) Presence of right artificial shoulder joint; Translations: [PRESENCE OF RIGHT ARTIFICIAL SHOULDER JOINT] Onset: 10-01-2017 Chronic Other gastrointestinal disorders (14 sources) Constipation; Translations: [Constipation, unspecified] 08-18-2022 Episodic Other gastrointestinal disorders (4 sources) Chronic constipation; Translations: [Other constipation] 05-07-2023 Episodic Other inflammatory condition of skin (4 sources) Itching ; Translations: [Pruritus, unspecified] 05-07-2023 Episodic Other skin disorders (4 sources) Eruption; Translations: [Rash and other nonspecific skin eruption] 05-07-2023 Episodic Residual codes; unclassified (4 sources) Difficulty sleeping ; Translations: [Sleep disorder, unspecified] 05-07-2023 Episodic Skin and subcutaneous tissue infections (6 sources) Cellulitis; Translations: [Cellulitis, unspecified] 10-11-2022 Episodic Sprains and strains (16 sources) Strain of muscle(s) and tendon(s) of the rotator cuff of right shoulder, subsequent encounter; Translations: [Strain of muscle(s) and tendon(s) of the rotator cuff of right shoulder, initial encounter] Onset: 01-15-2017 01-20-2017 Episodic Unclassified (2 sources) Unknown / UNK(Unknown) Onset: 01-15-2017 Past or Other Problems Problem Classification Problem Date Documented Da te Episodic/Chronic Abdominal pain (1 source) Unspecified abdominal pain; Translations: [Unspecified abdominal pain] Onset: 07-18-2023 Episodic Deficiency and other anemia (1 source) Anemia, [...] unspecified; Translations: [CONSTIPATION UNSPECIFIED] Onset: 09-16-2022 Episodic Other lower respiratory disease (1 source) Shortness of breath; Translations: [Shortness of breath] Onset: 05-07-2023 Episodic Other skin disorders (1 source) Rash and other nonspecific skin eruption; Translations: [Rash and other nonspecific skin eruption] Onset: 05-28-2023 Episodic Thyroid disorders (4 sources) Disorder of thyroid, unspecified; Translations: [DISORDER OF THYROID UNSPECIFIED] Onset: 10-01-2021 Episodic Results Test Name Value Interpretation Reference Range Facility Bacteria [Presence] in Urine by AutomatedOrdered By: Adela Baker on 11-09-2023 Bacteria Auto Ql (U) 4+ [HPF] High None Seen [facility] Bilirubin Test strip Ql (U)O rdered By: Adela Baker on 11-09-2023 Bilirubin Ql (U) Negative Negative [facility] Calcium oxalate crystals [Pr esence] in Urine by Computer assisted methodOrdered By: Adela Baker on 11-09-2023 Calcium oxalate crystals Computer assisted Ql (U) 3+ [HPF] [facility] Color of Urine by AutoOrdere d By: Adela Baker on 11-09-2023 Color (U) Light-yellow Normal Yellow [facility] Comment on above: Order Comment: Name Collection Type:: Collection Method Unknown Performed By: #### C UU, ADDONUAPLUS #### [facility] [address] [place] [address] Crystals.amorphous [Presence ] in Urine by Computer assisted methodOrdered By: Adela Baker on 11-09-2023 Crystals.amorphous Computer assisted Ql (U) Rare [HPF] [facility] Dipstick and Microscopicon 0 11-09-2023 Amorphous Crystal,Urine Rare Normal [facility] Comment on above: Order Comment: Name Collection Type:: Collection Method Unknown Performed By: #### C UU, ADDONUAPLUS #### [facility] [address] [place] [address] [place] Bacteria,Urine 4+ High None Seen [facility] Comment on above: Order Comment: Name Collection Type:: Collection Method Unknown Performed By: #### C UU, ADDONUAPLUS #### [address] Bilirubin,Urine Negative Normal Negative [facility] Comment on above: Order Comment: Name Collection Type:: Collection Method Unknown Performed By: #### C UU, ADDONUAPLUS #### [address] Calcium Oxalate Crystals,Urine 3+ Normal [facility] Comment on above: Order Comment: Name Collection Type:: Collection Method Unknown Performed By: #### C UU, ADDONUAPLUS #### [address] Glucose Ql (U) Normal Normal Normal [facility] Comment on above: Order Comment: Name Collection Type:: Collection Method Unknown Performed By: #### C UU, ADDONUAPLUS #### [address] Hyaline Casts,Urine 0-8 Normal 0-8 [facility] Comment on above: Order Comment: Name Collection Type:: Collection Method Unknown Performed By: #### C UU, ADDONUAPLUS #### [address] Mucus,Urine 1+ Critically abnormal [facility] Comment on above: Order Comment: Name Collection Type:: Collection Method Unknown Result Comment: PERF ORMED BY: [place] [address] PATHOLOGIST TOLL LINE REPAIRER FELICITAS BRINK M.D. Performed By: #### C UU, ADDONUAPLUS #### [place] [address] [place] Nitrite,Urine Negative Normal Negative [facility] Comment on above: Order Comment: Name Collection Type:: Collection Method Unknown Performed By: #### C UU, ADDONUAPLUS #### [place] [address] [place] Occult Blood,Urine Negative Normal Negative [facility] Comment on above: Order Comment: Name Collection Type:: Collection Method Unknown Result Comment: PERF ORMED BY: [place] [address] PATHOLOGIST TOLL LINE REPAIRER FELICITAS BRINK M.D. Performed By: #### C UU, ADDONUAPLUS #### [place] [address] [place] Protein,Urine Negative Normal Negative [facility] Comment on above: Order Comment: Name Collection Type:: Collection Method Unknown Performed By: #### C UU, ADDONUAPLUS #### [place] [address] [place] RBC,Urine 3-4 Normal 0-4 [facility] Comment on above: Order Comment: Name Collection Type:: Collection Method Unknown Performed By: #### C UU, ADDONUAPLUS #### [place] [address] [place] Specificy Ham[place],Urine 1.011 Normal 1.001-1.03 0 [facility] Comment on above: Order Comment: Name Collection Type:: Collection Method Unknown Performed By: #### C UU, ADDONUAPLUS #### [place] [address] [place] Squamous Epithelial Cell,Urine 1-2 Normal 0-2 [facility] Comment on above: Order Comment: Name Collection Type:: Collection Method Unknown Performed By: #### C UU, ADDONUAPLUS #### [place] [address] [place] Urobilinogen,Urine Normal Normal Normal [facility] Comment on above: Order Comment: Name Collection Type:: Collection Method Unknown Performed By: #### C UU, ADDONUAPLUS #### [place] [address] [place] WBC,Urine 3-4 Normal 0-4 [facility] Comment on above: Order Comment: Name Collection Type:: Collection Method Unknown Performed By: #### C UU, ADDONUAPLUS #### [place] [address] [place] Epithelial cells.squamous [# /area] in Urine sediment by Automated countOrdered By: Adela Baker on 11-09-2023 Epithelial cells.squamous Auto (Urine sed) [#/Area] 1-2 [HPF] 0-2 [facility] Erythrocytes [#/area] in Uri ne sediment by Automated countOrdered By: Adela Baker on 11-09-2023 RBC Auto (Urine sed) [#/Area] 3-4 [HPF] 0-4 [facility] Glucose [Mass/volume] in Uri ne by Test stripOrdered By: Adela Baker on 11-09-2023 Glucose Test strip (U) [Mass/Vol] Normal mg/dL Normal [facility] Hemoglobin Test strip Ql (U) Ordered By: Adela Baker on 11-09-2023 Hemoglobin Ql (U) Negative Negative [facility] Hyaline casts [#/area] in Ur ine sediment by Automated countOrdered By: Adela Baker on 11-09-2023 Hyaline casts Auto (Urine sed) [#/Area] 0-8 [LPF] 0-8 [facility] Ketones [Presence] in Urine by Test stripOrdered By: Adela Baker on 11-09-2023 Ketones Ql (U) Negative Normal Negative [facility] Comment on above: Order Comment: Name Collection Type:: Collection Method Unknown Performed By: #### C UU, ADDONUAPLUS #### [facility] [address] [place] [address] [place] Leukocyte esterase [Presence ] in Urine by Test stripOrdered By: Adela Baker on 11-09-2023 Leukocyte esterase Test strip Ql (U) Negative Normal Negative [facility] Comment on above: Order Comment: Name Collection Type:: Collection Method Unknown Performed By: #### C UU, ADDONUAPLUS #### [facility] [address] [place] [address] [place] Leukocytes [#/area] in Urine sediment by Automated countOrdered By: Adela Baker on 11-09-2023 WBC Auto (Urine sed) [#/Area] 3-4 [HPF] 0-4 [facility] Mucus [Presence] in Urine by AutomatedOrdered By: Adela Baker on 11-09-2023 Mucus Auto Ql (U) 1+ [LPF] Abnormal [facility] Nitrite Test strip Ql (U)Ord ered By: Adela Olivia on 11-09-2023 Nitrite Ql (U) Negative Negative [facility] Protein Test strip (U) [Mass /Vol]Ordered By: Adela Baker on 11-09-2023 Protein (U) [Mass/Vol] Negative Negative Fi [facility] Specific gravity Test strip (U) [Rel density]Ordered By: Adela Baker on 11-09-2023 Specific gravity (U) [Rel density] 1.011 1.001-1.[address] [facility] Urine Cultureon 11-09-2023 Bacteria identified Cx Nom (U) ORGANISM: Escherichia coli (O:ESCCOL) [place]ax Count >100,000 Aerobic SARI Charge ([id number]) SUSCEPTIBILITY ORGANISM: O:ESCCOL ANTIBIOTIC INTERPRETATION SARI Amikacin S <16 Amoxacillin/K Clavulanate S <8 Ampicillin S <8 Ampicillin/Sulbactam S <4 Aztreonam S <4 Cefazolin S <2 Cefepime S <2 Ceftazidime S <1 Ceftazidime/Avibactam S <4 Ceftolozane/Tazobactam S <2 Ceftriaxone S <1 Cefuroxime S <4 Ciprofloxacin S <0.25 Ertapenem S <0.5 Gentamicin S <2 Levofloxacin S <0.5 Meropenem S <1 Meropenem/Vaborbactam S <2 Nitrofurantoin S <32 Piperacillin/Tazobactam S <8 Tetracycline S <4 Tigecycline S <2 Tobramycin S <2 Trimethoprim/Sulfamethoxaz ole S <0.5 S = SUSCEPTIBLE I = INTERMEDIATE R = RESISTANT BLANK = DATA NOT AVAILABLE, OR DRUG NOT ADVISABLE OR TESTED R* = RESISTANCE DUE TO EXTENDED SPECTRUM BETA-LACTAMASES ESBL = EXTENDED SPECTRUM BETA-LACTAMASE TFG = THYMIDINE-DEPENDENT STRAIN KRISTA = BETA-LACTAMASE POSITIVE IB = INDUCIBLE BETA-LACTAMASE. APPEARS IN PLACE OF 'S' WITH SPECIES KNOWN TO POSSESS INDUCIBLE BETA-LACTAMASES. POTENTIALLY THEY MAY BECOME RESISTANT TO ALL B-LACTAM DRUGS. PERFORMED BY: [place] [address] PATHOLOGIST TOLL LINE REPAIRER FELICITAS BRINK M.D. Normal [facility] Comment on above: Performed By: #### C UU, ADDONUAPLUS #### [address] Urine appearanceOrdered By: Adela Baker on 11-09-2023 Appearance (U) Cloudy Critically abnormal Clear [facility] Comment on above: Order Comment: Name Collection Type:: Collection Method Unknown Performed By: #### C UU, ADDONUAPLUS #### [address] Urobilinogen Test strip (U) [Mass/Vol]Ordered By: Adela Baker on 11-09-2023 Urobilinogen (U) [Mass/Vol] Normal mg/dL Normal [facility] pH of Urine by Test stripOrd ered By: Adela Baker on 11-09-2023 pH (U) 6.0 [pH] Normal 5.0-9.0 [facility] Comment on above: Order Comment: Name Collection Type:: Collection Method Unknown Performed By: #### C UU, ADDONUAPLUS #### [address] XR KUBon 07-19-2023 XR KUB [facility] [place] [address] XRay Report Signed Patient: Gogo Carey MR#: [id number] [birth year] : 1940 Acct:[id number] Age/Sex: 82 / F ADM Date: 07/18/23 Loc: ER Room: Type: [facility] ER Attending Dr: Copies to: Juan Kay [...] Noelle Pagan M.D.07/19/2023 8:14 AM Dictation Location: [place] [address] Transcribed By: [facility] 07/19/23813 Dictated By: Noelle Pagan MD 07/19/23811 Signed By: 07/19/23813 Normal [facility] Complete Blood Count Auto Di ffon 07-18-2023 Basophils (Bld) [#/Vol] 0.0 10*3/uL Normal 0.0-0.2 [facility] Comment on above: Result Comment: PERF ORMED BY: [place] [address] PATHOLOGIST TOLL LINE REPAIRER FELICITAS BRINK M.D. Performed By: #### C BC #### [address] Basophils/100 WBC (Bld) 0.3 % Normal . [facility] Comment on above: Performed By: #### C BC #### [address] Eosinophils (Bld) [#/Vol] 0.1 10*3/uL Normal 0.0-0.45 [facility] Comment on above: Performed By: #### C BC #### [place] [address] [place] Eosinophils/100 WBC (Bld) 1.9 % Normal . [facility] Comment on above: Performed By: #### C BC #### [address] Erythrocyte distribution width (RBC) [Ratio] 14.1 % Normal 11.9-15.3 [facility] Comment on above: Performed By: #### C BC #### [address] Hematocrit (Bld) [Volume fraction] 44.7 % Normal 34.0-46.4 [facility] Comment on above: Performed By: #### C BC #### [address] Hemoglobin (Bld) [Mass/Vol] 14.9 g/dL Normal 11.8-15.4 [facility] Comment on above: Performed By: #### C BC #### [address] Lymphocytes (Bld) [#/Vol] 1.3 10*3/uL Normal 1.00-4.8 [facility] Comment on above: Performed By: #### C BC #### [address] Lymphocytes/100 WBC (Bld) 18.7 % Normal . [facility] Comment on above: Performed By: #### C BC #### [address] MCH (RBC) [Entitic mass] 30.2 pg Normal 24.7-34.3 [facility] Comment on above: Performed By: #### C BC #### [address] MCV (RBC) [Entitic vol] 90.6 fL Normal 80-100 [facility] Comment on above: Performed By: #### C BC #### [address] Mean Corpuscular HGB Conc 33.3 g/dL Normal 32.0-35.0 [facility] Comment on above: Performed By: #### C BC #### [address] Monocytes (Bld) [#/Vol] 0.6 10*3/uL Normal 0.0-0.8 [facility] Comment on above: Performed By: #### C BC #### [address] Monocytes/100 WBC (Bld) 17.30 % Normal 0.00-20.00 [facility] Comment on above: Performed By: #### C BC #### [facility] [address] [place] [address] [place] Monocytes/100 WBC (Bld) 8.5 % Normal . [facility] Comment on above: Performed By: #### C BC #### [place] [address] [place] Neutrophils (Bld) [#/Vol] 4.9 10*3/uL Normal 1.8-7.7 [facility] Comment on above: Performed By: #### C BC #### [place] [address] [place] Neutrophils/100 WBC (Bld) 70.6 % Normal . [facility] Comment on above: Performed By: #### C BC #### [place] [address] [place] NRBC% 0.0 /100{WBC} Normal 0-0.5 [facility] Comment on above: Performed By: #### C BC #### [place] [address] [place] Platelet mean volume (Bld) [Entitic vol] 8.3 fL Normal 6.3-10.7 [facility] Comment on above: Performed By: #### C BC #### [place] [address] [place] Platelets (Bld) [#/Vol] 289 10*3/uL Normal 150-450 [facility] Comment on above: Performed By: #### C BC #### [place] [address] [place] RBC (Bld) [#/Vol] 4.93 10*6/uL Normal 3.60-5.00 [facility] Comment on above: Performed By: #### C BC #### [place] [address] [place] WBC (Bld) [#/Vol] 6.9 10*3/uL Normal 3.8-11.6 [facility] Comment on above: Performed By: #### C BC #### [address] Comprehensive Metabolic Pane jeremiah 07-18-2023 Albumin [Mass/Vol] 4.1 g/dL Normal 3.5-5.7 [facility] Comment on above: Performed By: #### C BC #### [address] Albumin/Globulin [Mass ratio] 1.2 {ratio} Normal [facility] Comment on above: Performed By: #### C BC #### [address] ALP [Catalytic activity/Vol] 68 U/L Normal 34-104 [facility] Comment on above: Performed By: #### C BC #### [address] ALT [Catalytic activity/Vol] 10 U/L Normal 7-52 [facility] Comment on above: Performed By: #### C BC #### [address] Anion gap [Moles/Vol] 10.2 mmol/L Normal 6.0-15.0 [facility] Comment on above: Performed By: #### C BC #### [address] AST [Catalytic activity/Vol] 16 U/L Normal 13-39 [facility] Comment on above: Performed By: #### C BC #### [address] Bilirubin [Mass/Vol] 0.5 mg/dL Normal 0.3-1.0 [facility] Comment on above: Performed By: #### C BC #### [place] [address] [place] Calcium [Mass/Vol] 9.5 mg/dL Normal 8.6-10.3 [facility] Comment on above: Performed By: #### C BC #### [place] [address] [place] Chloride [Moles/Vol] 106 mmol/L Normal 98-107 [facility] Comment on above: Performed By: #### C BC #### [address] CO2 [Moles/Vol] 27.0 mmol/L Normal 21.0-31.0 [facility] Comment on above: Performed By: #### C BC #### [address] Creatinine [Mass/Vol] 0.95 mg/dL Normal 0.60-1.20 [facility] Comment on above: Performed By: #### C BC #### [address] Creatinine Clr Calc Pharmacy 43.89 Normal [facility] Comment on above: Performed By: #### C BC #### [address] GFR/1.73 sq M.predicted MDRD (S/P/Bld) [Vol rate/Area] mL/min/{1.73_m2} Normal [facility] Comment on above: Performed By: #### C BC #### [address] Globulin (S) [Mass/Vol] 3.3 g/dL Normal [facility] Comment on above: Performed By: #### C BC #### [address] Glucose [Mass/Vol] 114 mg/dL High 70-100 [facility] Comment on above: Result Comment: Formerly named [facility] Glucose Reference Range is dependent on time and content of last meal. Glucose of more than 200 mg/dL in a nonstressed, ambulatory subject supports the diagnosis of Diabetes Mellitus. ADA recommended reference range Performed By: #### C BC #### [address] Potassium [Moles/Vol] 4.2 mmol/L Normal 3.5-5.1 [facility] Comment on above: Performed By: #### C BC #### [address] [place] [address] [place] Protein [Mass/Vol] 7.4 g/dL Normal 6.4-8.9 [facility] Comment on above: Performed By: #### C BC #### [address] Sodium [Moles/Vol] 139 mmol/L Normal 136-145 [facility] Comment on above: Performed By: #### C BC #### [address] Urea nitrogen [Mass/Vol] 15 mg/dL Normal 7-25 [facility] Comment on above: Performed By: #### C BC #### [address] ECG 12 lead ECGon 07-18-2023 ECG 12 lead ECG [facility] [place] [address] [place] [address] Electrocardiograph Report Signed Patient: Gogo Carey MR#: [id number] 05 : 1940 Acct:[id number] Age/Sex: 82 / F ADM Date: 07/18/23 Loc: ER Room: Type: [facility] ER Attending Dr: Ordering Provider: Brittany Agustin [...] Anterior leads Confirmed by JUAN KAY DO ([id number]) on 07/19/2023 1:53:48 AM Referred By: Electronically Signed By:JUAN KAY DO Transcribed By: MUS Signed By Juan Kay DO 07/18 0154 Normal [facility] Lipaseon 07-18-2023 Lipase [Catalytic activity/Vol] 37.0 U/L Normal 11.0-82.0 [facility] Comment on above: Result Comment: PERF ORMED BY: [place] [address] PATHOLOGIST TOLL LINE REPAIRER FELICITAS BRINK M.D. Performed By: #### C BC #### [place] [id number] [facility] Alanine aminotransferase [En zymatic activity/volume] in Serum or PlasmaOrdered By: Ashleigh Jackson on 06-30-2023 ALT [Catalytic activity/Vol] 11 U/L Normal 7-52 [facility] Comment on above: Performed By: #### C BC #### [place] [id number] [place] Albumin [Mass/volume] in Ser um or Plasma by Bromocresol green (BCG) dye binding methoOrdered By: Ashleigh Jackson on 06-30-2023 Albumin BCG dye [Mass/Vol] 4.0 g/dL 3.5-5.7 [facility] Alkaline phosphatase [Enzyma tic activity/volume] in Serum or PlasmaOrdered By: Ashleigh Jackson on 06-30-2023 ALP [Catalytic activity/Vol] 67 U/L Normal 34-104 [facility] Comment on above: Performed By: #### C BC #### [facility] [address] [place], [place] [id number] [place] Aspartate aminotransferase [ Enzymatic activity/volume] in Serum or PlasmaOrdered By: Ashleigh Jackson on 06-30-2023 AST [Catalytic activity/Vol] 19 U/L Normal 13-39 [facility] Comment on above: Order Comment: Unacc eptable specimen due to HEMOLYSIS. Redraw reordered. Result Comment: PERF ORMED BY: [place] [id number] PATHOLOGIST TOLL LINE REPAIRER FELICITAS BRINK M.D. Performed By: #### C BC #### [address] Automated basophil %Ordered By: Ashleigh Jackson on 06-30-2023 Basophils/100 WBC (Bld) 0.5 % Normal . [facility] Comment on above: Order Comment: REDRA W Performed By: #### C BC #### [address] Automated basophil countOrde red By: Ashleigh Jackson on 06-30-2023 Basophils (Bld) [#/Vol] 0.0 10*3/uL Normal 0.0-0.2 [facility] Comment on above: Order Comment: REDRA W Result Comment: PERF ORMED BY: [place] [address] PATHOLOGIST TOLL LINE REPAIRER FELICITAS BRINK M.D. Performed By: #### C BC #### [address] Automated blood monocyte cou ntOrdered By: Ashleigh Jackson on 06-30-2023 Monocytes (Bld) [#/Vol] 0.8 10*3/uL Normal 0.0-0.8 [facility] Comment on above: Order Comment: REDRA W Performed By: #### C BC #### [address] Automated eosinophil %Ordere d By: Ashleigh Jackson on 06-30-2023 Eosinophils/100 WBC (Bld) 2.0 % Normal . [facility] Comment on above: Order Comment: REDRA W Performed By: #### C BC #### [address] Automated eosinophil countOr dered By: Ashleigh Jackson on 06-30-2023 Eosinophils (Bld) [#/Vol] 0.1 10*3/uL Normal 0.0-0.45 [facility] Comment on above: Order Comment: REDRA W Performed By: #### C BC #### [address] Automated monocyte %Ordered By: Ashleigh Jackson on 06-30-2023 Monocytes/100 WBC (Bld) 10.4 % Normal . [facility] Comment on above: Order Comment: REDRA W Performed By: #### C BC #### [address] Automated neutrophil %Ordere d By: Ashleigh Jackson on 06-30-2023 Neutrophils/100 WBC (Bld) 65.8 % Normal . [facility] Comment on above: Order Comment: REDRA W Performed By: #### C BC #### [address] Automated urine color determ inationOrdered By: Ashleigh Jackson on 06-30-2023 Color (U) Yellow Normal Yellow [facility] Comment on above: Order Comment: Name Collection Type:: Clean-Voided Midstream Performed By: #### U A #### [address] Bilirubin Test strip Ql (U)O rdered By: Ashleigh Jackson on 06-30-2023 Bilirubin Ql (U) Negative Negative [facility] Bilirubin.total [Mass/volume ] in Serum or PlasmaOrdered By: Ashleigh Jackson on 06-30-2023 Bilirubin [Mass/Vol] 0.6 mg/dL Normal 0.3-1.0 [facility] Comment on above: Performed By: #### C BC #### [address] abdomen pelvis w conon CT abdomen pelvis w con [facility] [place] [address] [place] [address] CT Scan Report Signed Patient: Gogo Carey MR#: [id number] 05 : 1940 Acct:[id number] Age/Sex: 82 / F ADM Date: 06/30/23 Loc: ER Room: Type: [facility] ER Attending Dr: Copies to: Ashleigh Jackson [...] Huang Ng M.D.06/30/2023 7:05 PM Dictation Location: [place] [address] Transcribed By: [facility] 06/30/231904 Dictated By: Huang Ng DO 06/30/231899 Signed By: 06/30/231904 Normal [facility] Calcium [Mass/volume] in Ser um or PlasmaOrdered By: Ashleigh Jackson on 06-30-2023 Calcium [Mass/Vol] 9.6 mg/dL Normal 8.6-10.3 [facility] Comment on above: Performed By: #### C BC #### [facility] [address] [place] [address] Carbon dioxide, total [Moles /volume] in Serum or PlasmaOrdered By: Ashleigh Jackson on 06-30-2023 CO2 [Moles/Vol] 22.0 mmol/L Normal 21.0-31.0 [facility] Comment on above: Performed By: #### C BC #### [facility] [address] [place] [address] Chloride [Moles/volume] in S marques or PlasmaOrdered By: Ashleigh Jackson on 06-30-2023 Chloride [Moles/Vol] 107 mmol/L Normal 98-107 [facility] Comment on above: Performed By: #### C BC #### [address] Complete Blood Count Auto Di ffon 06-30-2023 Mean Corpuscular HGB Conc 33.3 g/dL Normal 32.0-35.0 [facility] Comment on above: Order Comment: REDRA W Performed By: #### C BC #### [address] Monocytes/100 WBC (Bld) 19.27 % Normal 0.00-20.00 [facility] Comment on above: Order Comment: REDRA W Performed By: #### C BC #### [address] NRBC% 0.1 /100{WBC} Normal 0-0.5 [facility] Comment on above: Order Comment: REDRA W Performed By: #### C BC #### [address] Comprehensive Metabolic Pane jeremiah 06-30-2023 Albumin [Mass/Vol] 4.0 g/dL Normal 3.5-5.7 [facility] Comment on above: Performed By: #### C BC #### [address] Anion Gap Normal 6.0-15.0 [facility] Comment on above: Result Comment: Spec imen hemolyzed, redraw requested Performed By: #### C BC #### [address] Aspartate Amino Transferase Normal 13-39 [facility] Comment on above: Result Comment: Spec imen hemolyzed, redraw requested Performed By: #### C BC #### [address] Creatinine Clr Calc Pharmacy 47.58 Normal [facility] Comment on above: Performed By: #### C BC #### [facility] [address] GFR/1.73 sq M.predicted MDRD (S/P/Bld) [Vol rate/Area] mL/min/{1.73_m2} Normal [facility] Comment on above: Performed By: #### C BC #### [address] Potassium Normal 3.5-5.1 [facility] Comment on above: Result Comment: Spec imen hemolyzed, redraw requested Performed By: #### C BC #### [address] Creatinine [Mass/volume] in Serum or PlasmaOrdered By: Ashleigh Jackson on 06-30-2023 Creatinine [Mass/Vol] 0.94 mg/dL Normal 0.60-1.20 [facility] Comment on above: Performed By: #### C BC #### [address] Erythrocyte distribution wid th [Ratio] by Automated countOrdered By: Ashleigh Jackson on 06-30-2023 Erythrocyte distribution width (RBC) [Ratio] 14.5 % Normal 11.9-15.3 [facility] Comment on above: Order Comment: REDRA W Performed By: #### C BC #### [address] Erythrocytes [#/volume] in B lood by Automated countOrdered By: Ashleigh Jackson on 06-30-2023 RBC (Bld) [#/Vol] 4.57 10*6/uL Normal 3.60-5.00 [facility] Comment on above: Order Comment: REDRA W Performed By: #### C BC #### [address] Glucose [Mass/volume] in Ser um or PlasmaOrdered By: Ashleigh Jackson on 06-30-2023 Glucose [Mass/Vol] 93 mg/dL Normal 70-100 [facility] Comment on above: ADA recommended refe rence rangeRandom Glucose Reference Range is dependent on time and content of last meal. Glucose of more than 200 mg/dL in a nonstressed, ambulatory subject supports the diagnosis of Diabetes Mellitus. Result Comment: [place] Glucose Reference Range is dependent on time and content of last meal. Glucose of more than 200 mg/dL in a nonstressed, ambulatory subject supports the diagnosis of Diabetes Mellitus. ADA recommended reference range Performed By: #### C BC #### [address] Hematocrit [Volume Fraction] of Blood by Automated countOrdered By: Ashleigh Jackson on 06-30-2023 Hematocrit (Bld) [Volume fraction] 41.2 % Normal 34.0-46.4 [facility] Comment on above: Order Comment: REDRA W Performed By: #### C BC #### [address] Hemoglobin [Mass/volume] in BloodOrdered By: Ashleigh Jackson on 06-30-2023 Hemoglobin (Bld) [Mass/Vol] 13.7 g/dL Normal 11.8-15.4 [facility] Comment on above: Order Comment: REDRA W Performed By: #### C BC #### [address] Ketones Auto test strip (U) [Mass/Vol]Ordered By: Ashleigh Jackson on 06-30-2023 Ketones (U) [Mass/Vol] Negative Negative [facility] Leukocytes [#/volume] correc ella for nucleated erythrocytes in Blood by Automated counOrdered By: Ashleigh Jackson on 06-30-2023 WBC corrected for nucl RBC Auto (Bld) [#/Vol] 7.4 10*3/uL 3.8-11.6 [facility] Leukocytes [#/volume] in Blo od by Automated countOrdered By: Ashleigh Jackson on 06-30-2023 WBC (Bld) [#/Vol] 7.4 10*3/uL Normal 3.8-11.6 [facility] Comment on above: Order Comment: REDRA W Performed By: #### C BC #### [place] [id number] [place] Lipase [Enzymatic activity/v olume] in Serum or PlasmaOrdered By: Ashleigh Jackson on 06-30-2023 Lipase [Catalytic activity/Vol] 38.0 U/L Normal 11.0-82.0 [facility] Comment on above: Result Comment: PERF ORMED BY: [place] [address] PATHOLOGIST TOLL LINE REPAIRER FELICITAS BRINK M.D. Performed By: #### C BC #### [address] Lymphocytes [#/volume] in Bl ood by Automated countOrdered By: Ashleigh Jackson on 06-30-2023 Lymphocytes (Bld) [#/Vol] 1.6 10*3/uL Normal 1.00-4.8 [facility] Comment on above: Order Comment: REDRA W Performed By: #### C BC #### [address] Lymphocytes/100 leukocytes i n Blood by Automated countOrdered By: Ashleigh Jackson on 06-30-2023 Lymphocytes/100 WBC (Bld) 21.3 % Normal . [facility] Comment on above: Order Comment: REDRA W Performed By: #### C BC #### [address] MCH [Entitic mass] by Automa ella countOrdered By: Ashleigh Jackson on 06-30-2023 MCH (RBC) [Entitic mass] 29.9 pg Normal 24.7-34.3 [facility] Comment on above: Order Comment: REDRA W Performed By: #### C BC #### [address] MCHC Auto (RBC) [Mass/Vol]Or dered By: Ashleigh Jackson on 06-30-2023 MCHC (RBC) [Mass/Vol] 33.3 g/dL 32.0-35.0 [facility] MCV [Entitic volume] by Auto mated countOrdered By: Ashleigh Jackson on 06-30-2023 MCV (RBC) [Entitic vol] 90.0 fL Normal 80-100 [facility] Comment on above: Order Comment: REDRA W Performed By: #### C BC #### [facility] [address] Monocyte distribution width [Entitic volume] in Blood by AutomatedOrdered By: Ashleigh Jackson on 06-30-2023 Monocyte distribution width Auto (Bld) [Entitic vol] 19.27 % 0.00-20.00 [facility] Neutrophils [#/volume] in Bl ood by Automated countOrdered By: Ashleigh Jackson on 06-30-2023 Neutrophils (Bld) [#/Vol] 4.8 10*3/uL Normal 1.8-7.7 [facility] Comment on above: Order Comment: REDRA W Performed By: #### C BC #### [address] Nitrite Test strip Ql (U)Ord ered By: Ashleigh Jackson on 06-30-2023 Nitrite Ql (U) Negative Negative [facility] No Panel InformationOrdered By: Ashleigh Jackson on 06-30-2023 Estimated GFR (CKD-EPI) > 60.0 mL/Min [facility] Creatinine Clearance (Chem 47.58 [facility] Nucleated erythrocytes [Pres ence] in Blood by Automated countOrdered By: Ashleigh Jackson on 06-30-2023 Nucleated RBC Auto Ql (Bld) 0.1 /100{WBC} 0-0.5 [facility] Platelet mean volume [Entiti c volume] in Blood by Automated countOrdered By: Ashleigh Jackson on 06-30-2023 Platelet mean volume (Bld) [Entitic vol] 8.1 fL Normal 6.3-10.7 [facility] Comment on above: Order Comment: REDRA W Performed By: #### C BC #### [facility] [address] [place] [address] [place] Platelets [#/volume] in Bloo d by Automated countOrdered By: Ashleigh Jackson on 06-30-2023 Platelets (Bld) [#/Vol] 304 10*3/uL Normal 150-450 [facility] Comment on above: Order Comment: REDRA W Performed By: #### C BC #### [address] Potassium [Moles/volume] in Serum or PlasmaOrdered By: Ashleigh Jackson on 06-30-2023 Potassium [Moles/Vol] 4.4 mmol/L Normal 3.5-5.1 [facility] Comment on above: Order Comment: Unacc eptable specimen due to HEMOLYSIS. Redraw reordered. Performed By: #### C BC #### [address] Protein Auto test strip (U) [Mass/Vol]Ordered By: Ashleigh Jackson on 06-30-2023 Protein (U) [Mass/Vol] Negative Negative [facility] Protein [Mass/volume] in Ser um or PlasmaOrdered By: Ashleigh Jackson on 06-30-2023 Protein [Mass/Vol] 6.8 g/dL Normal 6.4-8.9 [facility] Comment on above: Performed By: #### C BC #### [address] Serum globulin measurement b y calculation (mass/volume)Ordered By: Ashleigh Jackson on 06-30-2023 Globulin (S) [Mass/Vol] 2.8 g/dL [facility] Comment on above: Performed By: #### C BC #### [address] Serum or plasma albumin/glob ulin mass ratioOrdered By: Ashleigh Jackson on 06-30-2023 Albumin/Globulin [Mass ratio] 1.4 {ratio} [facility] Comment on above: Performed By: #### C BC #### [address] Serum or plasma anion gap de terminationOrdered By: Ashleigh Jackson on 06-30-2023 Anion gap [Moles/Vol] See comment 6.0-15.0 [facility] Comment on above: Specimen hemolyzed, redraw requested Sodium [Moles/volume] in Ser um or PlasmaOrdered By: Ashleigh Jackson on 06-30-2023 Sodium [Moles/Vol] 137 mmol/L Normal 136-145 [facility] Comment on above: Performed By: #### C BC #### [address] Specific gravity Auto test s trip (U) [Rel density]Ordered By: Ashleigh Jackson on 06-30-2023 Specific gravity (U) [Rel density] 1.018 1.001-1.[address] [facility] Urea nitrogen [Mass/volume] in Serum or PlasmaOrdered By: Ashleigh Jackson on 06-30-2023 Urea nitrogen [Mass/Vol] 16 mg/dL Normal 7-25 [facility] Comment on above: Performed By: #### C BC #### [address] Urinalysison 06-30-2023 Appearance (U) Clear Normal Clear [facility] Comment on above: Order Comment: Name Collection Type:: Clean-Voided Midstream Performed By: #### U A #### [address] Bilirubin,Urine Negative Normal Negative [facility] Comment on above: Order Comment: Name Collection Type:: Clean-Voided Midstream Performed By: #### U A #### [address] Glucose Ql (U) Normal Normal Normal [facility] Comment on above: Order Comment: Name Collection Type:: Clean-Voided Midstream Performed By: #### U A #### [address] Ketones Ql (U) Negative Normal Negative [facility] Comment on above: Order Comment: Name Collection Type:: Clean-Voided Midstream Performed By: #### U A #### [address] Leukocyte esterase Test strip Ql (U) Negative Normal Negative [facility] Comment on above: Order Comment: Name Collection Type:: Clean-Voided Midstream Performed By: #### U A #### [address] Nitrite,Urine Negative Normal Negative [facility] Comment on above: Order Comment: Name Collection Type:: Clean-Voided Midstream Performed By: #### U A #### [address] Occult Blood,Urine Negative Normal Negative [facility] Comment on above: Order Comment: Name Collection Type:: Clean-Voided Midstream Result Comment: PERF ORMED BY: [place] [address] PATHOLOGIST TOLL LINE REPAIRER FELICITAS BRINK M.D. Performed By: #### U A #### [address] Protein,Urine Negative Normal Negative [facility] Comment on above: Order Comment: Name Collection Type:: Clean-Voided Midstream Performed By: #### U A #### [address] Specificy [place],Urine 1.018 Normal 1.001-1.03 0 [facility] Comment on above: Order Comment: Name Collection Type:: Clean-Voided Midstream Performed By: #### U A #### [address] Urobilinogen,Urine Normal Normal Normal [facility] Comment on above: Order Comment: Name Collection Type:: Clean-Voided Midstream Performed By: #### U A #### [facility] [address] [place] [address] Urine clarity by refractomet ry automatedOrdered By: Ashleigh Jackson on 06-30-2023 Clarity Refractometry automated (U) Clear Clear [facility] Urine glucose measurement by automated test strip (mass/volume)Ordered By: Ashleigh Jackson on 06-30-2023 Glucose Auto test strip (U) [Mass/Vol] Normal mg/dL Normal [facility] Urine hemoglobin detection b y automated test stripOrdered By: Ashleigh Jackson on 06-30-2023 Hemoglobin Auto test strip Ql (U) Negative Negative [facility] Urine leukocyte esterase det ection by automated test stripOrdered By: Ashleigh Jackson on 06-30-2023 Leukocyte esterase Auto test strip Ql (U) Negative Negative [facility] Urine pH measurement by auto mated test stripOrdered By: Ashleigh Jackson on 06-30-2023 pH (U) 6.0 [pH] Normal 5.0-9.0 [facility] Comment on above: Order Comment: Name Collection Type:: Clean-Voided Midstream Performed By: #### U A #### [facility] [address] Urobilinogen Auto test strip (U) [Mass/Vol]Ordered By: Ashleigh Jackson on 06-30-2023 Urobilinogen (U) [Mass/Vol] Normal mg/dL Normal [facility] Alanine aminotransferase [En zymatic activity/volume] in Serum or PlasmaOrdered By: Carine Montoya on 05-28-2023 ALT [Catalytic activity/Vol] 13 U/L Normal 7-52 [facility] Comment on above: Performed By: #### T SH3, T4F, CBC, CMP, ESR #### [facility] [address] [place] [address] [place] Albumin [Mass/volume] in Ser um or Plasma by Bromocresol green (BCG) dye binding methoOrdered By: Carine Montoya on 05-28-2023 Albumin BCG dye [Mass/Vol] 4.1 g/dL 3.5-5.7 [facility] Alkaline phosphatase [Enzyma tic activity/volume] in Serum or PlasmaOrdered By: Carine Montoya on 05-28-2023 ALP [Catalytic activity/Vol] 76 U/L Normal 34-104 [facility] Comment on above: Performed By: #### T SH3, T4F, CBC, CMP, ESR #### [facility] [address] [place] [address] [place] Aspartate aminotransferase [ Enzymatic activity/volume] in Serum or PlasmaOrdered By: Carine Montoya on 05-28-2023 AST [Catalytic activity/Vol] 20 U/L Normal 13-39 [facility] Comment on above: Performed By: #### T SH3, T4F, CBC, CMP, ESR #### [facility] [address] [place] [address] [place] Automated basophil %Ordered By: Carine Montoya on 05-28-2023 Basophils/100 WBC (Bld) 0.5 % Normal . [facility] Comment on above: Performed By: #### T SH3, T4F, CBC, CMP, ESR #### [facility] [address] Automated basophil countOrde red By: Carine Montoya on 05-28-2023 Basophils (Bld) [#/Vol] 0.0 10*3/uL Normal 0.0-0.2 [facility] Comment on above: Performed By: #### T SH3, T4F, CBC, CMP, ESR #### [address] Automated blood monocyte cou ntOrdered By: Carine Montoya on 05-28-2023 Monocytes (Bld) [#/Vol] 0.7 10*3/uL Normal 0.0-0.8 [facility] Comment on above: Performed By: #### T SH3, T4F, CBC, CMP, ESR #### [address] Automated eosinophil %Ordere d By: Carine Montoya on 05-28-2023 Eosinophils/100 WBC (Bld) 3.5 % Normal . [facility] Comment on above: Performed By: #### T SH3, T4F, CBC, CMP, ESR #### [address] Automated eosinophil countOr dered By: Carine Montoya on 05-28-2023 Eosinophils (Bld) [#/Vol] 0.2 10*3/uL Normal 0.0-0.45 [facility] Comment on above: Performed By: #### T SH3, T4F, CBC, CMP, ESR #### [address] Automated monocyte %Ordered By: Carine Montoya on 05-28-2023 Monocytes/100 WBC (Bld) 12.7 % Normal . [facility] Comment on above: Performed By: #### T SH3, T4F, CBC, CMP, ESR #### [facility] [address] Automated neutrophil %Ordere d By: Carine Montoya on 05-28-2023 Neutrophils/100 WBC (Bld) 58.7 % Normal . [facility] Comment on above: Performed By: #### T SH3, T4F, CBC, CMP, ESR #### [facility] [address] Bilirubin.total [Mass/volume ] in Serum or PlasmaOrdered By: Carine Montoya on 05-28-2023 Bilirubin [Mass/Vol] 0.7 mg/dL Normal 0.3-1.0 [facility] Comment on above: Performed By: #### T SH3, T4F, CBC, CMP, ESR #### [address] Calcium [Mass/volume] in Ser um or PlasmaOrdered By: Carine Montoya on 05-28-2023 Calcium [Mass/Vol] 9.5 mg/dL Normal 8.6-10.3 [facility] Comment on above: Performed By: #### T SH3, T4F, CBC, CMP, ESR #### [address] Carbon dioxide, total [Moles /volume] in Serum or PlasmaOrdered By: Carine Montoya on 05-28-2023 CO2 [Moles/Vol] 26.5 mmol/L Normal 21.0-31.0 [facility] Comment on above: Performed By: #### T SH3, T4F, CBC, CMP, ESR #### [place] [address] [place] Chloride [Moles/volume] in S marques or PlasmaOrdered By: Carine Montoya on 05-28-2023 Chloride [Moles/Vol] 108 mmol/L High 98-107 [facility] Comment on above: Performed By: #### T SH3, T4F, CBC, CMP, ESR #### [address] Complete Blood Count Auto Di ffon 05-28-2023 Mean Corpuscular HGB Conc 33.6 g/dL Normal 32.0-35.0 [facility] Comment on above: Performed By: #### T SH3, T4F, CBC, CMP, ESR #### [address] NRBC% 0.1 /100{WBC} Normal 0-0.5 [facility] Comment on above: Performed By: #### T SH3, T4F, CBC, CMP, ESR #### [address] Comprehensive Metabolic Pane jeremiah 05-28-2023 Albumin [Mass/Vol] 4.1 g/dL Normal 3.5-5.7 [facility] Comment on above: Performed By: #### T SH3, T4F, CBC, CMP, ESR #### [address] GFR/1.73 sq M.predicted MDRD (S/P/Bld) [Vol rate/Area] mL/min/{1.73_m2} Normal [facility] Comment on above: Performed By: #### T SH3, T4F, CBC, CMP, ESR #### [address] Creatinine [Mass/volume] in Serum or PlasmaOrdered By: Carine Montoya on 05-28-2023 Creatinine [Mass/Vol] 0.87 mg/dL Normal 0.60-1.20 [facility] Comment on above: Performed By: #### T SH3, T4F, CBC, CMP, ESR #### [address] Erythrocyte Sedimentation Ra iza 05-28-2023 ESR (Bld) [Velocity] 29 mm/h Normal 0-29 [facility] Comment on above: Result Comment: PERF ORMED BY: [place] [address] PATHOLOGIST TOLL LINE REPAIRER FELICITAS BRINK M.D. Performed By: #### T SH3, T4F, CBC, CMP, ESR #### [address] Erythrocyte distribution wid th [Ratio] by Automated countOrdered By: Carine Montoya on 05-28-2023 Erythrocyte distribution width (RBC) [Ratio] 14.6 % Normal 11.9-15.3 [facility] Comment on above: Performed By: #### T SH3, T4F, CBC, CMP, ESR #### [facility] [address] Erythrocyte sedimentation ra te by Photometric methodOrdered By: Carine Montoya on 05-28-2023 ESR Photometric method (Bld) [Velocity] 29 mm/hr 0-29 [facility] Erythrocytes [#/volume] in B lood by Automated countOrdered By: Carine Montoya on 05-28-2023 RBC (Bld) [#/Vol] 4.57 10*6/uL Normal 3.60-5.00 [facility] Comment on above: Performed By: #### T SH3, T4F, CBC, CMP, ESR #### [facility] [address] Glucose [Mass/volume] in Ser um or PlasmaOrdered By: Carine Montoya on 05-28-2023 Glucose [Mass/Vol] 87 mg/dL Normal 70-100 [facility] Comment on above: ADA recommended refe rence rangeRandom Glucose Reference Range is dependent on time and content of last meal. Glucose of more than 200 mg/dL in a nonstressed, ambulatory subject supports the diagnosis of Diabetes Mellitus. Result Comment: [place] om Glucose Reference Range is dependent on time and content of last meal. Glucose of more than 200 mg/dL in a nonstressed, ambulatory subject supports the diagnosis of Diabetes Mellitus. ADA recommended reference range Performed By: #### T SH3, T4F, CBC, CMP, ESR #### [facility] [address] Hematocrit [Volume Fraction] of Blood by Automated countOrdered By: Carine Montoya on 05-28-2023 Hematocrit (Bld) [Volume fraction] 41.5 % Normal 34.0-46.4 [facility] Comment on above: Performed By: #### T SH3, T4F, CBC, CMP, ESR #### [facility] [address] Hemoglobin [Mass/volume] in BloodOrdered By: Carine Montoya on 05-28-2023 Hemoglobin (Bld) [Mass/Vol] 13.9 g/dL Normal 11.8-15.4 [facility] Comment on above: Performed By: #### T SH3, T4F, CBC, CMP, ESR #### [facility] [address] Leukocytes [#/volume] correc ella for nucleated erythrocytes in Blood by Automated counOrdered By: Carine Montoya on 05-28-2023 WBC corrected for nucl RBC Auto (Bld) [#/Vol] 5.6 10*3/uL 3.8-11.6 [facility] Leukocytes [#/volume] in Blo od by Automated countOrdered By: Carine Montoya on 05-28-2023 WBC (Bld) [#/Vol] 5.6 10*3/uL Normal 3.8-11.6 [facility] Comment on above: Performed By: #### T SH3, T4F, CBC, CMP, ESR #### [facility] [address] [place] [address] [place] Lymphocytes [#/volume] in Bl ood by Automated countOrdered By: Carine Montoya on 05-28-2023 Lymphocytes (Bld) [#/Vol] 1.4 10*3/uL Normal 1.00-4.8 [facility] Comment on above: Performed By: #### T SH3, T4F, CBC, CMP, ESR #### [facility] [address] [place] [address] [place] Lymphocytes/100 leukocytes i n Blood by Automated countOrdered By: Carine Montoya on 05-28-2023 Lymphocytes/100 WBC (Bld) 24.6 % Normal . [facility] Comment on above: Performed By: #### T SH3, T4F, CBC, CMP, ESR #### [facility] [address] [place] [address] [place] MCH [Entitic mass] by Automa ella countOrdered By: Carine Montoya on 05-28-2023 MCH (RBC) [Entitic mass] 30.5 pg Normal 24.7-34.3 [facility] Comment on above: Performed By: #### T SH3, T4F, CBC, CMP, ESR #### [facility] [address] MCHC Auto (RBC) [Mass/Vol]Or dered By: Carine Montoya on 05-28-2023 MCHC (RBC) [Mass/Vol] 33.6 g/dL 32.0-35.0 [facility] MCV [Entitic volume] by Auto mated countOrdered By: Carine Montoya on 05-28-2023 MCV (RBC) [Entitic vol] 90.8 fL Normal 80-100 [facility] Comment on above: Performed By: #### T SH3, T4F, CBC, CMP, ESR #### [facility] [address] [place] [address] Neutrophils [#/volume] in Bl ood by Automated countOrdered By: Carine Montoya on 05-28-2023 Neutrophils (Bld) [#/Vol] 3.3 10*3/uL Normal 1.8-7.7 [facility] Comment on above: Performed By: #### T SH3, T4F, CBC, CMP, ESR #### [facility] [address] [place] [address] No Panel InformationOrdered By: Carine Montoya on 05-28-2023 Estimated GFR (CKD-EPI) > 60.0 mL/Min [facility] Creatinine Clearance (Chem N/A [facility] Nucleated erythrocytes [Pres ence] in Blood by Automated countOrdered By: Carine Montoya on 05-28-2023 Nucleated RBC Auto Ql (Bld) 0.1 /100{WBC} 0-0.5 [facility] Platelet mean volume [Entiti c volume] in Blood by Automated countOrdered By: Carine Montoya on 05-28-2023 Platelet mean volume (Bld) [Entitic vol] 8.1 fL Normal 6.3-10.7 [facility] Comment on above: Performed By: #### T SH3, T4F, CBC, CMP, ESR #### [address] Platelets [#/volume] in Bloo d by Automated countOrdered By: Carine Montoya on 05-28-2023 Platelets (Bld) [#/Vol] 289 10*3/uL Normal 150-450 [facility] Comment on above: Performed By: #### T SH3, T4F, CBC, CMP, ESR #### [address] Potassium [Moles/volume] in Serum or PlasmaOrdered By: Carine Montoya on 05-28-2023 Potassium [Moles/Vol] 4.5 mmol/L Normal 3.5-5.1 [facility] Comment on above: Performed By: #### T SH3, T4F, CBC, CMP, ESR #### [address] Protein [Mass/volume] in Ser um or PlasmaOrdered By: Carine Montoya on 05-28-2023 Protein [Mass/Vol] 6.8 g/dL Normal 6.4-8.9 [facility] Comment on above: Performed By: #### T SH3, T4F, CBC, CMP, ESR #### [address] Serum globulin measurement b y calculation (mass/volume)Ordered By: Carine Montoya on 05-28-2023 Globulin (S) [Mass/Vol] 2.7 g/dL [facility] Comment on above: Performed By: #### T SH3, T4F, CBC, CMP, ESR #### [address] Serum or plasma albumin/glob ulin mass ratioOrdered By: Carine Montoya on 05-28-2023 Albumin/Globulin [Mass ratio] 1.5 {ratio} [facility] Comment on above: Performed By: #### T SH3, T4F, CBC, CMP, ESR #### [address] Serum or plasma anion gap de terminationOrdered By: Carine Montoya on 05-28-2023 Anion gap [Moles/Vol] 11.0 mmol/L Normal 6.0-15.0 [facility] Comment on above: Performed By: #### T SH3, T4F, CBC, CMP, ESR #### [address] Sodium [Moles/volume] in Ser um or PlasmaOrdered By: Carine Montoya on 05-28-2023 Sodium [Moles/Vol] 141 mmol/L Normal 136-145 [facility] Comment on above: Performed By: #### T SH3, T4F, CBC, CMP, ESR #### [address] Thyrotropin [Units/volume] i n Serum or PlasmaOrdered By: Carine Montoya on 05-28-2023 TSH Qn 13.24 m[IU]/L High 0.45-5.33 [facility] Comment on above: Result Comment: PERF ORMED BY: [place] [address] PATHOLOGIST TOLL LINE REPAIRER FELICITAS BRINK M.D. Performed By: #### C BC #### [address] Thyroxine (T4) free [Mass/vo lume] in Serum or PlasmaOrdered By: Carine Montoya on 05-28-2023 Free T4 [Mass/Vol] 0.67 ng/dL Normal 0.61-1.12 [facility] Comment on above: Performed By: #### T SH3, T4F, CBC, CMP, ESR #### [address] Urea nitrogen [Mass/volume] in Serum or PlasmaOrdered By: Carine Montoya on 05-28-2023 Urea nitrogen [Mass/Vol] 21 mg/dL Normal 7-25 [facility] Comment on above: Performed By: #### T SH3, T4F, CBC, CMP, ESR #### [address] Capillary blood glucose tavares urement by glucometer (mass/volume)Ordered By: Camille Dennison on 05-07-2023 Glucose [Mass/Vol] 115 mg/dL Normal [facility] Comment on above: Random Glucose Refer ence Range is dependent on time and content of last meal. Glucose of more than 200 mg/dL in a nonstressed, ambulatory subject supports the diagnosis of Diabetes Mellitus. Result Comment: [place] om Glucose Reference Range is dependent on time and content of last meal. Glucose of more than 200 mg/dL in a nonstressed, ambulatory subject supports the diagnosis of Diabetes Mellitus. PERFORMED BY: [place] [address] PATHOLOGIST TOLL LINE REPAIRER FELICITAS BRINK M.D. Performed By: #### G LULS #### Point of Care testing , ECG 12 lead ECGon 05-07-2023 ECG 12 lead ECG [facility] [place] [address] Electrocardiograph Report Signed Patient: Gogo Carey MR#: [id number] [birth year] : 1940 Acct:[id number] Age/Sex: 82 / F ADM Date: 05/07/23 Loc: ER Room: Type: [facility] ER Attending Dr: Ordering Provider: Camille Dennison [...] complexes Confirmed by Daniel DE SANTIAGO DO ([id number]) on 05/08/2023 6:12:51 AM Referred By: Electronically Signed By:Daniel DE SANTIAGO DO Transcribed By: MUS Signed By Daniel De Santiago DO 1 07/09/22 0612 Normal [facility] XR acute abdomen serieson XR acute abdomen series [facility] Main [place] [id number] XRay Report Signed Patient: Gogo Carey MR#: [id number] [birth year] : 1940 Acct:[id number] Age/Sex: 82 / F ADM Date: 03/02/23 [...] PROCESS. EVIDENCE OF CONSTIPATION. Impression dictated by: Brady Hanson Jr., D.O.03/02/2023 4:03 PM Dictation Location: [facility] Transcribed By: [facility] 03/02/23 1603 Dictated By: Brady Hanson Jr, DO 03/02/23 1603 Signed By: 03/02/23 1603 Normal [facility] XR KUBon 12-16-2022 XR KUB [facility] Main [address] [address] XRay Report Signed Patient: Gogo Carey MR#: [id number] [birth year] : 1940 Acct:[id number] Age/Sex: 82 / F ADM Date: 12/16/22 [...] Noelle Pagan M.D.12/16/2022 4:03 PM Dictation Location: [place] [address] Transcribed By: [facility] 12/16/22 160 Dictated By: Noelle Pagan MD 12/16/22 1601 Signed By: 12/16/22 160 Normal [facility] CBC AUTO DIFFon 09-16-2022 BASO # 0.0 103/ul Normal 0.0-0.1 [facility] Comment on above: Performed By: #### C MP, LIPID, TSH, T7 #### [facility] [address] [place] [address] [address] Grace Durand Basophils/100 WBC (Bld) 0.3 % Normal 0.2-2.0 [facility] Comment on above: Performed By: #### C MP, LIPID, TSH, T7 #### [facility] [address] [place] [address] [address] Grace Durand EO # 0.1 103/ul Normal 0.0-0.7 [facility] Comment on above: Performed By: #### C MP, LIPID, TSH, T7 #### [facility] [address] [place] [address] [address] Grace Durand Eosinophils/100 WBC (Bld) 1.3 % Normal 0.9-7.0 [facility] Comment on above: Performed By: #### C MP, LIPID, TSH, T7 #### [facility] [address] [place] [address] [address] Grace Durand Erythrocyte distribution width (RBC) [Ratio] 13.8 % Normal 11.0-15.0 [facility] Comment on above: Performed By: #### C MP, LIPID, TSH, T7 #### [facility] [address] [place] [address] [address] Grace Durand Hematocrit (Bld) [Volume fraction] 42.9 % Normal 36.0-48.0 [facility] Comment on above: Performed By: #### C MP, LIPID, TSH, T7 #### [facility] [address] [place] [address] Dr. Grace Durand Hemoglobin (Bld) [Mass/Vol] 14.2 g/dL Normal 12.0-16.0 [facility] Comment on above: Performed By: #### C MP, LIPID, TSH, T7 #### [facility] [address] [place] [address] Dr. Grace Durand IG # 0.02 10e3/ul Normal 0.00-0.03 [facility] Comment on above: Performed By: #### C MP, LIPID, TSH, T7 #### [facility] [address] [place] [address] Dr. Grace Durand IG % 0.3 % Normal 0.0-0.5 [facility] Comment on above: Performed By: #### C MP, LIPID, TSH, T7 #### [facility] [address] [place] [address] Dr. Grace Durand LYMPH # 1.6 103/ul Normal 1.2-3.8 [facility] Comment on above: Performed By: #### C MP, LIPID, TSH, T7 #### [facility] [address] [place] [address] Dr. Grace Durand Lymphocytes/100 WBC (Bld) 22.8 % Normal 20.5-60.0 [facility] Comment on above: Performed By: #### C MP, LIPID, TSH, T7 #### [facility] [address] [place] [address] Dr. Grace Durand MANUAL DIFF REQ NO Normal [facility] Comment on above: Performed By: #### C MP, LIPID, TSH, T7 #### [facility] [address] [place] [address] Dr. Grace Durand MCH (RBC) [Entitic mass] 30.0 pg Normal 26.7-34.0 [facility] Comment on above: Performed By: #### C MP, LIPID, TSH, T7 #### [facility] [address] [place] [address] Dr. Grace Durand MCHC (RBC) [Mass/Vol] 33.1 g/dL Normal 29.9-35.2 [facility] Comment on above: Performed By: #### C MP, LIPID, TSH, T7 #### [facility] [address] [place] [address] Dr. Grace Durand MCV (RBC) [Entitic vol] 90.5 fL Normal 81.0-99.0 [facility] Comment on above: Performed By: #### C MP, LIPID, TSH, T7 #### [facility] [address] [place] [address] Dr. Grace Durand MONO # 0.7 103/ul Normal 0.3-0.8 [facility] Comment on above: Performed By: #### C MP, LIPID, TSH, T7 #### [facility] [address] [place] [address] Dr. Grace Durand Monocytes/100 WBC (Bld) 10.4 % Normal 1.7-12.0 [facility] Comment on above: Performed By: #### C MP, LIPID, TSH, T7 #### [facility] [address] [place] [address] Dr. Grace Durand NEUT # 4.6 103/ul Normal 1.4-6.5 [facility] Comment on above: Performed By: #### C MP, LIPID, TSH, T7 #### [facility] [address] [place] [address] Dr. Grace Durand Neutrophils/100 WBC (Bld) 64.9 % Normal 43.0-75.0 [facility] Comment on above: Performed By: #### C MP, LIPID, TSH, T7 #### [facility] [address] [place] [address] Dr. Grace Durand Platelet mean volume (Bld) [Entitic vol] 9.6 fL Normal 9.5-13.5 [facility] Comment on above: Performed By: #### C MP, LIPID, TSH, T7 #### [facility] [address] [place] [address] Dr. Grace Durand PLT 297 103/ul Normal 150-450 [facility] Comment on above: Performed By: #### C MP, LIPID, TSH, T7 #### [facility] [address] [place], [place] [address] Dr. Grace Durand RBC 4.74 106/ul Normal 4.20-5.40 [facility] Comment on above: Performed By: #### C MP, LIPID, TSH, T7 #### [facility] [address] [place], [place] [address] Dr. Grace Durand WBC 7.0 103/ul Normal 4.0-11.0 [facility] Comment on above: Performed By: #### C MP, LIPID, TSH, T7 #### [facility] [address] [place], [place] [address] ABD/PELV W CONon [...] by: HECTOR GONZALEZ Date: 2022-09-16 19:29 Normal [facility] LACTATE/LACTIC ACIDon 2022 Lactate [Moles/Vol] 1.7 mmol/L Normal 0.4-2.0 [facility] Comment on above: Performed By: #### L ACT #### [facility] [address] [place] [address] Dr. Grace Durand PROF CHEM 8 (BAS METB)on Anion gap [Moles/Vol] 12.9 mmol/L [facility] Comment on above: Performed By: #### B MP #### [facility] [address] [place] [address] Dr. Grace Durand Calcium [Mass/Vol] 9.5 mg/dL Normal 8.5-10.1 [facility] Comment on above: Performed By: #### B MP #### [facility] [address] [place] [address] Dr. Grace Durand Chloride [Moles/Vol] 107 mmol/L Normal 98-107 [facility] Comment on above: Performed By: #### B MP #### [facility] [address] [place] [address] [address] Grace Durand CO2 [Moles/Vol] 23.6 mmol/L Normal 21.0-32.0 [facility] Comment on above: Performed By: #### B MP #### [facility] [address] [place] [address] Dr. Grace Durand Creatinine [Mass/Vol] 1.14 mg/dL Critically high 0.55-1.02 [facility] Comment on above: Performed By: #### B MP #### [facility] [address] [place] [address] [address] Grace Durand EGFR-AF VINCENTIAN 56 mL/min/1.73m2 Critically low >=60 [facility] Comment on above: Performed By: #### B MP #### [facility] [address] [place] [address] [address] Grace Durand EGFR-NON AF VINCENTIAN 46 mL/min/1.73m2 Critically low >=60 [facility] Comment on above: Performed By: #### B MP #### [facility] [address] [place] [address] [address] Grace Durand Glucose [Mass/Vol] 120 mg/dL Critically high 74-106 T [facility] Comment on above: Performed By: #### B MP #### [facility] [address] [place] [address] [address] Grace Durand Potassium [Moles/Vol] 3.5 mmol/L Normal 3.5-5.1 [facility] Comment on above: Performed By: #### B MP #### [facility] [address] [place] [address] [address] Grace Durand Sodium [Moles/Vol] 140 mmol/L Normal 136-145 [facility] Comment on above: Performed By: #### B MP #### [facility] [address] [place] [address] [address] Grace Durand Urea nitrogen [Mass/Vol] 14.0 mg/dL Normal 7.0-18.0 [facility] Comment on above: Performed By: #### B MP #### [facility] [address] [place] [address] [address] Grace Durand Urea nitrogen/Creatinine [Mass ratio] 12.3 mg/mg Normal [facility] Comment on above: Performed By: #### B MP #### [facility] [address] [place] [address] [address] Grace Durand XR ABD FLAT UP_PA [...] LUKAS HENRY Date: 2022-07-20 16:03 Normal [facility] T4 LABCORPon 10-05-2021 T4 [Mass/Vol] 6.6 ug/dL Normal 4.5-12.0 [facility] Comment on above: Performed By: #### T 4LC #### [facility] [address] [place] [address] Dr. Grace Durand INSULINon 10-02-2021 Insulin 7.4 uIU/mL Normal 2.6-24.9 [facility] Comment on above: Performed By: #### C MP, LIPID, TSH, T7 #### [facility] [address] [place] [address] Dr. Grace Durand CBC AUTO DIFFon 10-01-2021 BASO # 0.0 103/ul Normal 0.0-0.1 [facility] Comment on above: Performed By: #### C MP, LIPID, TSH, T7 #### [facility] [address] [place] [address] Dr. Grace Durand Basophils/100 WBC (Bld) 0.4 % Normal 0.2-2.0 [facility] Comment on above: Performed By: #### C MP, LIPID, TSH, T7 #### [facility] [address] [place] [address] Dr. Grace Durand EO # 0.2 103/ul Normal 0.0-0.7 [facility] Comment on above: Performed By: #### C MP, LIPID, TSH, T7 #### [facility] [address] [place] [address] Dr. Grace Durand Eosinophils/100 WBC (Bld) 3.1 % Normal 0.9-7.0 [facility] Comment on above: Performed By: #### C MP, LIPID, TSH, T7 #### [facility] [address] [place] [address] Dr. Grace Durand Erythrocyte distribution width (RBC) [Ratio] 13.6 % Normal 11.0-15.0 [facility] Comment on above: Performed By: #### C MP, LIPID, TSH, T7 #### [facility] [address] [place] [address] Dr. Grace Durand Hematocrit (Bld) [Volume fraction] 45.9 % Normal 36.0-48.0 [facility] Comment on above: Performed By: #### C MP, LIPID, TSH, T7 #### [facility] [address] [place] [address] Dr. Grace Durand Hemoglobin (Bld) [Mass/Vol] 14.7 g/dL Normal 12.0-16.0 [facility] Comment on above: Performed By: #### C MP, LIPID, TSH, T7 #### [facility] [address] [place] [address] Dr. Grace Durand IG # 0.01 10e3/ul Normal 0.00-0.03 [facility] Comment on above: Performed By: #### C MP, LIPID, TSH, T7 #### [facility] [address] [place] [address] Dr. Grace Durand IG % 0.2 % Normal 0.0-0.5 [facility] Comment on above: Performed By: #### C MP, LIPID, TSH, T7 #### [facility] [address] [place] [address] Dr. Grace Durand LYMPH # 1.5 103/ul Normal 1.2-3.8 [facility] Comment on above: Performed By: #### C MP, LIPID, TSH, T7 #### [facility] [address] [place] [address] Dr. Grace Durand Lymphocytes/100 WBC (Bld) 30.0 % Normal 20.5-60.0 [facility] Comment on above: Performed By: #### C MP, LIPID, TSH, T7 #### [facility] [address] [place] [address] Dr. Grace Durand MANUAL DIFF REQ NO Normal [facility] Comment on above: Performed By: #### C MP, LIPID, TSH, T7 #### [facility] [address] [place] [address] Dr. Grace Durand MCH (RBC) [Entitic mass] 29.1 pg Normal 26.7-34.0 [facility] Comment on above: Performed By: #### C MP, LIPID, TSH, T7 #### [facility] [address] [place] [address] Dr. Grace Durand MCHC (RBC) [Mass/Vol] 32.0 g/dL Normal 29.9-35.2 [facility] Comment on above: Performed By: #### C MP, LIPID, TSH, T7 #### [facility] [address] [place] [address] Dr. Grace Durand MCV (RBC) [Entitic vol] 90.7 fL Normal 81.0-99.0 [facility] Comment on above: Performed By: #### C MP, LIPID, TSH, T7 #### [facility] [address] [place] [address] Dr. Grace Durand MONO # 0.5 103/ul Normal 0.3-0.8 [facility] Comment on above: Performed By: #### C MP, LIPID, TSH, T7 #### [facility] [address] [place] [address] Dr. Grace Durand Monocytes/100 WBC (Bld) 9.9 % Normal 1.7-12.0 [facility] Comment on above: Performed By: #### C MP, LIPID, TSH, T7 #### [facility] [address] [place] [address] Dr. Grace Durand NEUT # 2.9 103/ul Normal 1.4-6.5 [facility] Comment on above: Performed By: #### C MP, LIPID, TSH, T7 #### [facility] [address] [place] [address] Dr. Grace Durand Neutrophils/100 WBC (Bld) 56.4 % Normal 43.0-75.0 [facility] Comment on above: Performed By: #### C MP, LIPID, TSH, T7 #### [facility] [address] [address] [address] Grace Durand Platelet mean volume (Bld) [Entitic vol] 10.1 fL Normal 9.5-13.5 [facility] Comment on above: Performed By: #### C MP, LIPID, TSH, T7 #### [facility] [address] [address] [address] Grace Durand PLT 288 103/ul Normal 150-450 [facility] Comment on above: Performed By: #### C MP, LIPID, TSH, T7 #### [facility] [address] [place] [address] Dr. Grace Durand RBC 5.06 106/ul Normal 4.20-5.40 [facility] Comment on above: Performed By: #### C MP, LIPID, TSH, T7 #### [facility] [address] [place] [address] Dr. Grace Durand WBC 5.1 103/ul Normal 4.0-11.0 [facility] Comment on above: Performed By: #### C MP, LIPID, TSH, T7 #### [facility] [address] [place] [address] Dr. Grace Durand FREE THYROXINE INDEX T7on FTI 2.11 Normal 1.30-4.50 [facility] Comment on above: Performed By: #### C MP, LIPID, TSH, T7 #### [facility] [address] [place] [address] Dr. Grace Durand T3U 32.0 % Normal 30.0-39.0 [facility] Comment on above: Performed By: #### C MP, LIPID, TSH, T7 #### [facility] [address] [place] [address] Dr. Grace Durand T4 [Mass/Vol] 6.60 ug/dL Normal 4.80-13.90 [facility] Comment on above: Performed By: #### C MP, LIPID, TSH, T7 #### [facility] [address] [place] [address] Dr. Grace Durand GLYCOHEMOGLOBIN A1Con 2021 ADA RECOMMENDATION SEE BELOW Normal [facility] Comment on above: Result Comment: ADA RECOMMENDED LIMIT 4.0 - 6.0 ADA THERAPEUTIC TARGET < 7.0 ACTION SUGGESTED > 7.0 Performed By: #### C MP, LIPID, TSH, T7 #### [facility] [address] [address] [address] Grace Durand Glucose [Mass/Vol] 108 mg/dL Normal [facility] Comment on above: Performed By: #### C MP, LIPID, TSH, T7 #### [facility] [address] [address] [address] Grace Durand HbA1c (Bld) [Mass fraction] 5.4 % Normal 4.5-6.2 [facility] Comment on above: Performed By: #### C MP, LIPID, TSH, T7 #### [facility] [address] [place] [address] Dr. Grace Durand IRONon 10-01-2021 Iron [Mass/Vol] 76.0 ug/dL Normal 50.0-170.0 [facility] Comment on above: Performed By: #### I GWYN #### [facility] [address] [address] [address] Grace Durand LIPID PROFILEon 10-01-2021 CHOL-HDL RATIO NORM SEE BELOW Normal [facility] Comment on above: Result Comment: 3.3 - 4.4 LOW RISK 4.4 - 7.1 AVERAGE RISK 7.1 - 11.0 MODERATE RISK >11.0 HIGH RISK Performed By: #### C MP, LIPID, TSH, T7 #### [facility] [address] [address] [address] Grace Durand Cholesterol [Mass/Vol] 200 mg/dL Normal <=200 [facility] Comment on above: Performed By: #### C MP, LIPID, TSH, T7 #### [facility] [address] [address] [address] Grace Durand Cholesterol in HDL [Mass/Vol] 61 mg/dL Critically high 40-60 [facility] Comment on above: Performed By: #### C MP, LIPID, TSH, T7 #### [facility] [address] [address] [address] Grace Durand Cholesterol in LDL [Mass/Vol] 109.8 mg/dL Normal [facility] Comment on above: Performed By: #### C MP, LIPID, TSH, T7 #### [facility] [address] [place] [address] Dr. Grace Durand Cholesterol.total/Chol esterol in HDL [Mass ratio] 3.3 {ratio} Normal [facility] Comment on above: Performed By: #### C MP, LIPID, TSH, T7 #### [facility] [address] [address] [address] Grace Durand HDL NORMAL > or = 60 mg/dl - LO W CARDIOVASCULAR RISK <40 mg/dl - HIGH CARDIOVASCULAR RISK Normal [facility] Comment on above: Performed By: #### C MP, LIPID, TSH, T7 #### [facility] [address] [place] [address] Dr. Grace Durand LDL CALC NORMAL SEE BELOW Normal [facility] Comment on above: Result Comment: <100 mg/dl OPTIMAL 100 - 129 mg/dl NEAR OR ABOVE OPTIMAL 130 - 159 mg/dl BORDERLINE HIGH 160 - 189 mg/dl HIGH >190 mg/dl VERY HIGH Performed By: #### C MP, LIPID, TSH, T7 #### [facility] [address] [address] [address] Grace Durand Triglyceride [Mass/Vol] 146 mg/dL Normal <=150 [facility] Comment on above: Performed By: #### C MP, LIPID, TSH, T7 #### [facility] [address] [address] [address] Grace Durand VLDL CALC 29.2 mg/dL Normal [facility] Comment on above: Performed By: #### C MP, LIPID, TSH, T7 #### [facility] [address] [place] [address] Dr. Grace Durand PROF 14(COMP METB)on 022 Albumin [Mass/Vol] 3.6 g/dL Normal 3.4-5.0 [facility] Comment on above: Performed By: #### C MP, LIPID, TSH, T7 #### [facility] [address] [place] [address] Dr. Grace Durand Albumin/Globulin [Mass ratio] 0.9 {ratio} Normal [facility] Comment on above: Performed By: #### C MP, LIPID, TSH, T7 #### [facility] [address] [place] [address] Dr. Grace Durand ALP [Catalytic activity/Vol] 90 U/L Normal 46-116 [facility] Comment on above: Performed By: #### C MP, LIPID, TSH, T7 #### [facility] [address] [place] [address] Dr. Grace Durand ALT [Catalytic activity/Vol] 20 U/L Normal 14-59 [facility] Comment on above: Performed By: #### C MP, LIPID, TSH, T7 #### [facility] [address] [place] [address] Dr. Grace Durand Anion gap [Moles/Vol] 11.0 mmol/L [facility] Comment on above: Performed By: #### C MP, LIPID, TSH, T7 #### [facility] [address] [place] [address] Dr. Grace Durand AST [Catalytic activity/Vol] 18 U/L Normal 15-37 [facility] Comment on above: Performed By: #### C MP, LIPID, TSH, T7 #### [facility] [address] [place] [address] Dr. Grace Durand Bilirubin [Mass/Vol] 0.5 mg/dL Normal 0.2-1.0 [facility] Comment on above: Performed By: #### C MP, LIPID, TSH, T7 #### [facility] [address] [place] [address] Dr. Grace Durand Calcium [Mass/Vol] 9.3 mg/dL Normal 8.5-10.1 [facility] Comment on above: Performed By: #### C MP, LIPID, TSH, T7 #### [facility] [address] [place] [address] Dr. Grace Durand Chloride [Moles/Vol] 107 mmol/L Normal 98-107 [facility] Comment on above: Performed By: #### C MP, LIPID, TSH, T7 #### [facility] [address] [address] [address] Grace Durand CO2 [Moles/Vol] 26.9 mmol/L Normal 21.0-32.0 [facility] Comment on above: Performed By: #### C MP, LIPID, TSH, T7 #### [facility] [address] [place] [address] Dr. Grace Durand Creatinine [Mass/Vol] 0.96 mg/dL Normal 0.55-1.02 [facility] Comment on above: Performed By: #### C MP, LIPID, TSH, T7 #### [facility] [address] [place] [address] Dr. Grace Durand EGFR-AF VINCENTIAN >60 Normal >=60 [facility] Comment on above: Performed By: #### C MP, LIPID, TSH, T7 #### [facility] [address] [place] [address] Dr. Grace Durand EGFR-NON AF VINCENTIAN 56 mL/min/1.73m2 Critically low >=60 [facility] Comment on above: Performed By: #### C MP, LIPID, TSH, T7 #### [facility] [address] [place] [address] Dr. Grace Durand Globulin (S) [Mass/Vol] 3.9 g/dL Normal [facility] Comment on above: Performed By: #### C MP, LIPID, TSH, T7 #### [facility] [address] [place] [address] Dr. Grace Durand Glucose [Mass/Vol] 95 mg/dL Normal 74-106 [facility] Comment on above: Performed By: #### C MP, LIPID, TSH, T7 #### [facility] [address] [place] [address] Dr. Grace Durand Potassium [Moles/Vol] 4.9 mmol/L Normal 3.5-5.1 [facility] Comment on above: Performed By: #### C MP, LIPID, TSH, T7 #### [facility] [address] [place] [address] Dr. Grace Durand Protein [Mass/Vol] 7.5 g/dL Normal 6.4-8.2 [facility] Comment on above: Performed By: #### C MP, LIPID, TSH, T7 #### [facility] [address] [place] [address] Dr. Grace Durand Sodium [Moles/Vol] 140 mmol/L Normal 136-145 [facility] Comment on above: Performed By: #### C MP, LIPID, TSH, T7 #### [facility] [address] [place] [address] Dr. Grace Durand Urea nitrogen [Mass/Vol] 15.0 mg/dL Normal 7.0-18.0 [facility] Comment on above: Performed By: #### C MP, LIPID, TSH, T7 #### [facility] [address] [place] [address] Dr. Grace Durand Urea nitrogen/Creatinine [Mass ratio] 15.6 mg/mg Normal [facility] Comment on above: Performed By: #### C MP, LIPID, TSH, T7 #### [facility] [address] [place] [address] Dr. Grace Durand TSHon 10-01-2021 TSH 0.265 uIU/mL Critically low 0.358-3.74 0 [facility] Comment on above: Performed By: #### C MP, LIPID, TSH, T7 #### [facility] [address] [place] [address] Dr. Grace Durand TSH RANGE SEE BELOW Normal [facility] Comment on above: Result Comment: <0.3 4 UIU/ml HYPERTHYROID 0.34-5.60 UIU/ml EUTHYROID >5.60 UIU/ml HYPOTHYROID Performed By: #### C MP, LIPID, TSH, T7 #### [facility] [address] [place] [address] Dr. Grace Durand Physician Referralon 021 Physician Referral [id number]:127 Normal [facility] Formson 03-09-2020 Forms [id number]:127 Normal [facility] Physician Referralon 020 Physician Referral [id number]:127 Normal [facility] Ambulatory Clinical Summaryo n 02-28-2020 Ambulatory Clinical Summary {[id number]}CD: [id number] Normal [facility] Patient Educationon 02-28-20 20 Patient Education [...] your urinary (more content not included)... Normal [facility] Urology Office/Clinic Noteon 02-28-2020 Urology Office/Clinic [...] History of Present Illness Reviewed UA and OFFICE SPEC paper works. There have been no associated [...] 1. Female bladder prolapse (N81.10: Cystocele, unspecified) OFFICE SPEC is referred by Adela Baker [employer]. Pt. had a bladder prolapse reair with mesh in by dr flores at [facility]. Her bladder has dropped again several years [...] Dr. Coppola. Follow-up With When Contact Information Juan COPPOLA MD [address] [place] [address]- [phone] Additional Instructions: Patient Education Urinary Frequency I, [...] Vitamins oral tablet, 1 tab(s), Oral, Daily [place] 325 mg-5 mg oral tablet, 1 tab(s), Oral, q4hr, PRN, 1 refills, Not taking sertraline 100 mg Tab, 100 mg= 1 tab(s), Oral, Daily (more content not included)... Normal [facility] Comment on above: Result Comment: Elec tronically Signed By: Juan COPPOLA MD\.br\Date and Time Signed: 02/28/20 13:30 EDT\.br\Electronically Co-Signed By: Gabrielle Moore MA\.br\Date and Time Co-Signed: 02/28/20 13:25 EDT SHOULDER RIGHT 10-01-2017 [facility] CenterDepartment of [address] [place] [address] Yarelis ent Name: GOGO CAREY : 1940Sex: FAge: Race: WhiteMRN: [id number]. Location: 84Patient Status: DVisit #: [id number] Date: 10/01/2017 4:30:00 PMCompleted Date: 10/01/2017 04:36 PMRequesting Provider: ROSE ANSARI Attending Provider: ROSE ANSARI Report Copy To: UNKNOWN, PHYSICIAN Signs & Symptoms: S46.011A Strain of musc/tend the rotator cuff of right shoulder, init E51Noydleb: AthenaComments: , , , Ordering Provider - ROSE ANSARI MD , Exam: SHOULDER RIGHTAccession #: [id number] ===SHOULDER RIGHT 10/01/2017 4:36 PM EDT SIGNS [...] findings. Electronically signed by:Brandt Velez. Transcribed by: [email or web address], User Resident: PUSHPA JEAN BAPTISTEElectronically Signed by: BRANDT VELEZ @ 10/02/2017 09:36 AMI personally read this/these film(s) with this resident Normal [facility] Comment on above: Order Comment: , , = ========= , Ordering Provider - ROSE ANSARI MD , Discharge Summaryon 01-29-20 Discharge Summary MR#: [id number] Admitted: 01/21/2017 Discharged: [...] 01/28/2017/03:22 P/Gauri Pagan M.D.Date Trans: 01/28/2017 04:03 P/mmoDN_JN:[id number] Normal [facility] CBC W/DIFFon 01-22-2017 Basophils Auto #/vol (Bld) 0.0 % Normal 0.0-2.0 [facility] Comment on above: Order Comment: No: D o not add to previous draw Performed By: #### 5 0103 ####[facility].[address] Eosinophils/100 leukocytes 0.0 % Normal 0.0-5.0 [facility] Comment on above: Order Comment: No: D o not add to previous draw Performed By: #### 5 0103 ####[facility].[address] Erythrocyte distribution width Auto Ratio (RBC) 13.8 % Normal 11.5-16.9 [facility] Comment on above: Order Comment: No: D o not add to previous draw Performed By: #### 5 0103 ####[facility] [place] [address], [facility] Erythrocytes (RBC) 3.62 mill/mm3 Normal 3.50-5.50 [facility] Comment on above: Order Comment: No: D o not add to previous draw Performed By: #### 5 0103 ####[facility] Hematocrit (HCT) 32.1 % Low 36.0-48.0 [facility] Comment on above: Order Comment: No: D o not add to previous draw Performed By: #### 5 0103 ####[facility] [facility].[address] Hemoglobin mass conc (Bld) 10.4 g/dL Low 12.0-15.0 [facility] Comment on above: Order Comment: No: D o not add to previous draw Performed By: #### 5 0103 ####[facility] Lymphocytes/100 leukocytes 6.4 % Low 20.0-40.0 [facility] Comment on above: Order Comment: No: D o not add to previous draw Performed By: #### 5 0103 ####[facility] MCH 28.7 pg Normal 24.0-32.0 [facility] Comment on above: Order Comment: No: D o not add to previous draw Performed By: #### 5 0103 ####[facility] [facility].[address] MCHC mass conc (RBC) 32.4 g/dL Normal 32.0-36.0 [facility] Comment on above: Order Comment: No: D o not add to previous draw Performed By: #### 5 0103 ####[facility] [facility].[address] MCV 88.6 fL Normal 80.0-100.0 [facility] Comment on above: Order Comment: No: D o not add to previous draw Performed By: #### 5 0103 ####[facility] [facility] [place] [place] [address], [facility] METHOD Normal [facility] Comment on above: Order Comment: No: D o not add to previous draw Result Comment: Auto mated differential performedNormal RBC Morphology Performed By: #### 5 0103 ####[facility] [id number], [facility] MONOS 9.0 % High 2-8 [facility] Comment on above: Order Comment: No: D o not add to previous draw Performed By: #### 5 0103 ####[facility] [place] [address], [facility] Neutrophils/100 leukocytes 84.6 % High 50-70 [facility] Comment on above: Order Comment: No: D o not add to previous draw Performed By: #### 5 0103 ####[facility] [place] [address], [facility] PLAT CNT 312 Thou/mm3 Normal 100-400 [facility] Comment on above: Order Comment: No: D o not add to previous draw Performed By: #### 5 0103 ####[facility] [place] [address], [facility] WBC (Leukocytes) 8.0 Thou/mm3 Normal 4.0-10.0 [facility] Comment on above: Order Comment: No: D o not add to previous draw Performed By: #### 5 0103 ####[facility] Operative Reporton 7 Operative Report MR#: [id number] [facility] Name: Gogo Carey Room #: [id number] Discharge Date: Birthdate: 1940 OPERATIVE REPORTDATE OF [...] glenoid with a slightinferior tilt. The central airplane pilot hole was drilled and the glenoid [...] 09:17 P Rose Ansari M.D.Date Dict: 01/22/2017/08:44 A/Rose Ansari M.D.Date Trans: 01/22/2017 05:59 P/mmoDN_JN:[id number] Normal [facility] ARTERIAL BLOOD GAS W/COOXon 01-21-2017 BASE EXCESS 0 mmol/L Normal -2-2 [facility] Comment on above: Performed By: #### 7 66, 82226, 07690, 58256 ####[facility] [facility].[address] Bicarbonate (HCO3) 25 mmol/L Normal 23-27 [facility] Comment on above: Performed By: #### 7 66, 55501, 42885, 06758 ####[facility] [facility].[address] CO2 37 mmHg Normal 35-45 [facility] Comment on above: Performed By: #### 7 66, 84680, 20872, 93741 ####[facility] [facility].[address] COHB 2 % High 0-1 [facility] Comment on above: Performed By: #### 7 66, 30238, 64423, 21383 ####[facility] [facility].[address] METHB 1.0 % Normal 0.0-1.5 [facility] Comment on above: Performed By: #### 7 66, 43859, 09520, 73204 ####[facility] [facility].[address] O2 saturation 96.4 % Normal 94.0-97.0 [facility] Comment on above: Performed By: #### 7 66, 59883, 35245, 78551 ####[facility] [facility].[address] Oxygen in arterial blood 99 mm[Hg] Normal 75-100 [facility] Comment on above: Performed By: #### 7 66, 89204, 90710, 68854 ####[facility] [facility].[address] pH of blood 7.43 [pH] Normal 7.35-7.45 [facility] Comment on above: Performed By: #### 7 0067, 64499, 64673, 33153 ####[place] [address] [facility].[address] THB 11.0 g/dL Low 12.0-15.0 [facility] Comment on above: Performed By: #### 7 0067, 02162, 22199, 50720 ####[place] [address] [facility].[address] CALCIUM IONIZED CBGLon 01-21 IONIZED CALCIUM 1.22 mmol/L Normal 1.13-1.32 [facility] Comment on above: Performed By: #### 7 0067, 53679, 65178, 01555 ####[place] [address] [facility].[address] POC GLUCOSE LABon 01-21-2017 Glucose mass conc 92 mg/dL Normal 70-100 [facility] Comment on above: Performed By: #### 8 5499 ####[address] PORTABLE SHOULDER RIGHT 2 VW Son 01-21-2017 PORTABLE SHOULDER RIGHT 2 VWS [facility] [address] [place] [address] Yarelis ent Name: GOGO CAREY : 1940Sex: FAge: Race: WhiteMRN: [id number]. Location: OUTPPatient Status: IVisit #: [id number] Date: 01/21/2017 7:40:00 PMCompleted Date: 01/21/2017 08:41 PMRequesting Provider: GAURI PAGAN Attending Provider: ROSE ANSARI Report Copy To: Signs & Symptoms: Post OPHistory: Patient history not availableComments: Hardware EvaluationExam: PORTABLE SHOULDER RIGHT 2 VWSAccession #: [id number] ===PORTABLE SHOULDER RIGHT 2 VWS 01/21/2017 8:41 [...] alignment Electronically signed by:Kemal Mcrae. Transcribed by: [email or web address], User Resident: Electronically Signed by: KEMAL MCRAE @ 01/22/2017 11:45 AM Normal [facility] Comment on above: Order Comment: Hardw are Evaluation POTASSIUM WHOLE BLOOD CBGLon 01-21-2017 Potassium molar conc 3.5 mmol/L Normal 3.4-5.2 [facility] Comment on above: Performed By: #### 7 0067, 96162, 02715, 17388 ####[facility] [facility] [place] [place] [address], [facility] SODIUM WHOLE BLOOD CBGLon Sodium 137.0 mmol/L Normal 136.0-146. 0 [facility] Comment on above: Performed By: #### 7 [id number], [id number], [id number] ####[facility] [place] [address], [facility] CHEST AND LATERALon 01-16-20 17 CHEST AND LATERAL [facility] [address] [place] [address] Yarelis ent Name: GOGO CAREY : 1940Sex: FAge: Race: WhiteMRN: [id number]. Location: 84Patient Status: OVisit #: [id number] Date: 01/15/2017 3:05:00 PMCompleted Date: 01/15/2017 03:06 PMRequesting Provider: ROSE ANSARI Attending Provider: ROSE ANSARI Report Copy To: Signs & Symptoms: S46.011A Strain of musc/tend the rotator cuff of right shoulder, init [id number]: AthenaComments: , , Views (X-RAY, CHEST): PA , , , Ordering Provider - ROSE ANSARI MD , Rendering Provider - ROES ANSARI MD , Exam: CHEST AND LATERALAccession #: [id number] ===CHEST AND LATERAL 01/15/2017 3:08 PM EDT SIGNS AND SYMPTOMS: S46.011A Strain of musc/tend the rotator cuff of right shoulder, init I10 TECHNOLOGIST COMMENTS: Patient states lump on anterior portion of upper chest. History of hypertension. QUESTION FOR THE RADIOLOGIST: , , Views (X-RAY, CHEST): PA , , , Ordering Provider - ROSE ANSARI MD , Rendering Provider - ROSE ANSARI MD , PROTOCOL: AP(PA) and Lateral views were obtained. COMPARISON: None FINDINGS: There is no pulmonary consolidation, pleural effusion, or pneumothorax. The aorta is tortuous The cardiomediastinal silhouette and pulmonary vasculature are within normal limits. No acute osseous abnormalities. IMPRESSION: No radiographic evidence of acute cardiopulmonary process. Electronically signed by:Evaristo Buchanan. Transcribed by: [id number], User Resident: Electronically Signed by: EVARISTO BUCHANAN @ 01/15/2017 03:50 PM Normal [facility] Comment on above: Order Comment: , , V iews (X-RAY, CHEST): PA , , , Ordering Provider - ROSE ANSARI MD , Rendering Provider - ROSE ANSARI MD , Vital Signs Date Time Vital Sign Value Performing Clinician Tom jennings 06-30-2023 21:04-0500 Body temperature 97 [degF] OFFICE SPEC-C Adela Baker Work Phone: [facility] 06-30-2023 21:04-0500 Diastolic blood pressure 72 mm[Hg] OFFICE SPEC-C Adela Baker Work Phone: [facility] 06-30-2023 21:04-0500 Heart rate 64 /min OFFICE SPEC-C Adela Baker Work Phone: [facility] 06-30-2023 21:04-0500 Respiratory rate 20 /min OFFICE SPEC-C Adela Baker Work Phone: [facility] 06-30-2023 21:04-0500 SaO2% (BldA) [Mass fraction] 97 % OFFICE SPEC-C Adela Baker Work Phone: [facility] 06-30-2023 21:04-0500 Systolic blood pressure 128 mm[Hg] OFFICE SPEC-C Adela Baker Work Phone: [facility] 06-30-2023 14:21-0500 Body height 152.4 cm OFFICE SPEC-C Adela Olivia Work Phone: [facility] 06-30-2023 14:21-0500 Body weight 89.6 kg OFFICE SPEC-C Adela Olivia Work Phone: [facility] 05-07-2023 18:25-0500 Diastolic blood pressure 94 mm[Hg] OFFICE SPEC-C Adela Olivia Work Phone: [facility] 05-07-2023 18:25-0500 Heart rate 98 /min OFFICE SPEC-C Adela Olivia Work Phone: [facility] 05-07-2023 18:25-0500 Respiratory rate 18 /min OFFICE SPEC-C Adela Olivia Work Phone: [facility] 05-07-2023 18:25-0500 SaO2% (BldA) [Mass fraction] 96 % OFFICE SPEC-C Adela Olivia Work Phone: [facility] 05-07-2023 18:25-0500 Systolic blood pressure 137 mm[Hg] OFFICE SPEC-C Adela Olivia Work Phone: [facility] 05-07-2023 15:54-0500 Body temperature 97.5 [degF] OFFICE SPEC-C Adela Olivia Work Phone: [facility] 05-07-2023 15:51-0500 Body height 154.94 cm OFFICE SPEC-C Adela Olivia Work Phone: [facility] 05-07-2023 15:51-0500 Body weight 77.11 kg OFFICE SPEC-C Adela Olivia Work Phone: [facility] 03-02-2023 19:24-0400 Diastolic blood pressure 78 mm[Hg] OFFICE SPEC-C Adela Olivia Work Phone: [facility] 03-02-2023 19:24-0400 Heart rate 92 /min OFFICE SPEC-C Adela Olivia Work Phone: [facility] 03-02-2023 19:24-0400 Respiratory rate 20 /min OFFICE SPEC-C Adela Olivia Work Phone: [facility] 03-02-2023 19:24-0400 SaO2% (BldA) [Mass fraction] 98 % OFFICE SPEC-C Adela Olivia Work Phone: [facility] 03-02-2023 19:24-0400 Systolic blood pressure 148 mm[Hg] OFFICE SPEC-C Adela Olivia Work Phone: [facility] 03-02-2023 15:36-0400 Body height 152.4 cm OFFICE SPEC-C Adela Olivia Work Phone: [facility] 03-02-2023 15:36-0400 Body weight 78.01 kg OFFICE SPEC-C Adela Olivia Work Phone: [facility] 03-02-2023 15:35-0400 Body temperature 97.9 [degF] OFFICE SPEC-C Adela Olivia Work Phone: [facility] 12-16-2022 23:29-0400 Diastolic blood pressure 90 mm[Hg] OFFICE SPEC-C Adela Olivia Work Phone: [facility] 12-16-2022 23:29-0400 Heart rate 94 /min OFFICE SPEC-C Adela Olivia Work Phone: [facility] 12-16-2022 23:29-0400 Respiratory rate 19 /min OFFICE SPEC-C Adela Olivia Work Phone: [facility] 12-16-2022 23:29-0400 SaO2% (BldA) [Mass fraction] 97 % OFFICE SPEC-C Adela Olivia Work Phone: [facility] 12-16-2022 23:29-0400 Systolic blood pressure 141 mm[Hg] OFFICE SPEC-C Adela Olivia Work Phone: [facility] 12-16-2022 21:06-0400 Body height 152.4 cm OFFICE SPEC-C Adela Olivia Work Phone: [facility] 12-16-2022 21:06-0400 Body weight 83.6 kg OFFICE SPEC-C Adela Olivia Work Phone: [facility] 12-16-2022 15:24-0400 Body temperature 97.7 [degF] OFFICE SPEC-C Adela Olivia Work Phone: [facility] 10-11-2022 17:37-0400 Body height 154.94 cm OFFICE SPEC-C Adela Olivia Work Phone: [facility] 10-11-2022 17:37-0400 Body temperature 98.4 [degF] OFFICE SPEC-C Adela Olivia Work Phone: [facility] 10-11-2022 17:37-0400 Body weight 87.7 kg OFFICE SPEC-C Adela Olivia Work Phone: [facility] 10-11-2022 17:37-0400 Diastolic blood pressure 70 mm[Hg] OFFICE SPEC-C Adela Olivia Work Phone: [facility] 10-11-2022 17:37-0400 Heart rate 90 /min OFFICE SPEC-C Adela Olivia Work Phone: [facility] 10-11-2022 17:37-0400 Respiratory rate 20 /min OFFICE SPEC-C Adela Olivia Work Phone: [facility] 10-11-2022 17:37-0400 SaO2% (BldA) [Mass fraction] 96 % OFFICE SPEC-C Adela Olivia Work Phone: [facility] 10-11-2022 17:37-0400 Systolic blood pressure 145 mm[Hg] OFFICE SPEC-C Adela Olivia Work Phone: [facility] 08-18-2022 22:00-0400 Diastolic blood pressure 78 mm[Hg] OFFICE SPEC-C Adela Olivia Work Phone: [facility] 08-18-2022 22:00-0400 Heart rate 68 /min OFFICE SPEC-C Adela Olivia Work Phone: [facility] 08-18-2022 22:00-0400 Respiratory rate 18 /min OFFICE SPEC-C Adela Olivia Work Phone: [facility] 08-18-2022 22:00-0400 SaO2% (BldA) [Mass fraction] 100 % OFFICE SPEC-C Adela Olivia Work Phone: [facility] 08-18-2022 22:00-0400 Systolic blood pressure 124 mm[Hg] OFFICE SPEC-C Adela Olivia Work Phone: [facility] 08-18-2022 21:03-0400 Body height 152.4 cm OFFICE SPEC-C Adela Olivia Work Phone: [facility] 08-18-2022 21:03-0400 Body temperature 98.6 [degF] OFFICE SPEC-C Adela Olivia Work Phone: [facility] 08-18-2022 21:03-0400 Body weight 86.18 kg OFFICE SPEC-C Adelakayley Nievesmer Work Phone: [facility] Encounters Encounter Date Encounter Type Care Provider Facility Start: 11-09-2023 End: 11-09-2023 ambulatory OFFICE SPEC-C Adela Belkys Olivia Work Phone: [facility] Work Phone: Start: 11-09-2023 End: 11-09-2023 Departed Referred OFFICE SPEC-C Adelakayley Baker Work Phone: [facility] [place] Work Phone: Start: 07-18-2023 End: 07-18-2023 Emergency department patient visit Juan Kay Facility:[facility] Start: 06-30-2023 End: 06-30-2023 Emergency department patient visit OFFICE SPEC-C Adelakayley Baker Work Phone: [facility] Work Phone: Start: 05-28-2023 End: 05-28-2023 ambulatory OFFICE SPEC-C Adela Belkys Olivia Work Phone: [facility] Work Phone: Start: 05-28-2023 End: 05-28-2023 Patient encounter procedure OFFICE SPEC-C Adelakayley Nievesmer Work Phone: [facility] [place] Work Phone: Start: 05-07-2023 End: 05-07-2023 Emergency department patient visit OFFICE SPEC-C Adela Baker Work Phone: [facility] Work Phone: Start: 03-02-2023 End: 03-02-2023 Emergency department patient visit OFFICE SPEC-C Adela Baker Work Phone: [facility] Work Phone: Start: 12-16-2022 End: 12-17-2022 Emergency department patient visit OFFICE SPEC-C Adela Baker Work Phone: [facility] Work Phone: Start: 10-11-2022 End: 10-11-2022 Emergency department patient visit OFFICE SPEC-C Adela Baker Work Phone: [facility] Work Phone: Start: 09-16-2022 End: 09-16-[address] ALISA Smith Facility:[facility] Start: 08-18-2022 End: 08-18-2022 Emergency department patient visit OFFICE SPEC-C Adela Baekr Work Phone: [facility] Work Phone: Start: 08-13-2022 End: 08-13-2022 ambulatory OFFICE SPEC-C Adela Rizvi Olivia Work Phone: [facility] Work Phone: Start: 08-13-2022 End: 08-13-2022 Patient encounter procedure OFFICE SPEC-C Adela Olivia Work Phone: [facility] Work Phone: Start: 07-20-2022 End: 07-20-2022 ambulatory ADELA BAKER Facility:[facility] Start: 10-01-2021 End: 10-02-2021 ambulatory ADELA BAKER Facility:[facility] Start: 10-01-2017 End: 10-02-2017 Ambulatory ROSE ANSARI Facility:[facility] Start: 01-21-2017 End: 01-23-2017 Evaluation and management of inpatient ROSE ANSARI Facility:[facility] Start: 01-15-2017 End: 01-16-2017 Ambulatory ROSE ANSARI Facility:[facility] Start: 12-11-2016 End: 12-12-2016 Ambulatory DEFAULT PHYSICIAN Facility:[facility] Start: 12-11-2016 End: 12-12-2016 Ambulatory DEFAULT PHYSICIAN Facility:[facility] Procedures Date Procedure Procedure Detail Performing Clinician Start: 06-30-2023 Computed tomography of abdomen and pelvis with contrast OFFICE SPEC-C Adela Baker Work Phone: Start: 03-02-2023 Diagnostic radiograp hy of abdomen OFFICE SPEC-C Adela Baker Work Phone: Start: 12-16-2022 Diagnostic radiograp hy of abdomen OFFICE SPEC-C Adela Baker Work Phone: Start: 01-21-2017 MEASURE OF ARTERIAL SATURATION, PERIPHERAL, PERC APPROACH ROSE ANSARI Start: 01-21-2017 REPLACE OF R SHOULDE R JT WITH REV BL \T\ SOCKT, OPEN APPROACH ROSE ANSARI Plan of Treatment Date Care Activity Detail Author Start: 11-09-2023 Bacteria identified in Urine by Culture [facility] Patient Education [facility] Work Phone: Patient referral [facility] Work Phone: Payers Date Payer Category Payer Self-pay [id number] 1957 Medicaid [id number] 1957 Medicare [id number] 1940 Unknown [id number] 2.16.84 [id number] 1940 Unknown [id number] 2.16.84 [id number] 1940 Unknown [id number] 2.16.84 [id number] Medicare [id number] Medicare Medicare [id number] Unknown Unknown HCAP/HFA/FAP Active [id number] Unknown [id number] 2.16.8 [id number] Unknown [id number] 2.16.8 [id number] Unknown [id number] 2.16.8 [id number] Unknown [id number] 2.16.8 [id number] Unknown [id number] 2.16.8 [id number] Unknown [id number] 2.16.8 [id number] Unknown [id number] 2.16.8 [id number] Social History Date Type Detail Facility Start: 02-01-2017 Tobacco smoking stat us NMIS Ex-smoker (finding) [facility] Start: 1940 Sex Assigned At Female F [facility] Start: 08-18-2022 End: 07-18-2023 Tobacco smoking status NMIS Never smoked tobacco (finding) [facility] Hospital Discharge instructions 06-30-2023 Note Date & Type Note Facility 06-30-2023 Hospital Discharg e instructions Additional Instructions Please return to emergency department for any new or worrisome symptoms including any return of abdominal pain, vomiting, fever, not not passing gas. Follow-up with your family physician within the next 3 to 5 days. Take stool softeners as directed. [facility] Work Phone: Evaluation note Note Date & Type Note Facility Evaluation note No assessment information availa ble [facility] Work Phone: Hospital Discharge instructions Note Date [...] the PCP for reevaluation 5 7 days. [facility] Work Phone: Hospital Discharge instructions Note Date & Type Note Facility Hospital Discharge instructions Additional Instructions We gave you a dose of steroids to help with itching. Please try the Atarax for the itching as well as well as for anxiety. Additionally please use MiraLAX daily for your constipation. Please continue following closely with your primary care provider as well as your corporate security manager. Please return to the emergency department if you develop any worsening or concerning symptoms. [facility] Work Phone: Summary Purpose Family History No Family History Records Found Relationship Condition Age at Onset Recorded Date/T aric Not Specified No pertinent family history Unknown Relationship Condition Age at Onset Recorded Date/T aric Not Specified No pertinent family history Unknown father Heart disease Unknown Unknown Not Specified Malignant neoplasm Unknown Relationship Condition Age at Onset Recorded Date/T aric Not Specified No pertinent family history Unknown father Heart disease Unknown Unknown mother Malignant neoplasm Unknown Advance Directives No Advanced [...] Complaint rash sob R21 poss bowel blockage Chief Complaint R35.0 Additional Source Comments INFORMATION SOURCE (unrecogn ized section and content) DATE CREATED AUTHOR 10/29/2017 [facility] DATE CREATED AUTHOR AUTHOR'S ORGANIZ ATION 12/07/2020 [facility] DATE CREATED AUTHOR AUTHOR'S ORGANIZ ATION 09/19/2022 [facility] DATE CREATED AUTHOR AUTHOR'S ORGANIZ ATION 11/13/2023 [facility] Care Teams (unrecognized sec tion and content) Team Status: Active Member Role Status Dates Adela Baker , OFFICE SPEC-C Primary Care Provider Active Team Status: Inactive Member Role Status Dates Adela Baker , OFFICE SPEC-C Primary Care Provider, Referr ing Provider Active Lukas Fried MD Attending Provider Active Team Status: Inactive Member Role Status Dates Adela Baker , OFFICE SPEC-C Primary Care Provider Active Jay Carvajal , DO Emergency Provider Active Team Status: Inactive Member Role Status Dates Adela Baker , OFFICE SPEC-C Primary Care Provider Active Juan Henao DO Emergency Provider Active Team Status: Inactive Member Role Status Dates Adela Baker , OFFICE SPEC-C Primary Care Provider Active Camille Dennison DO Emergency Provider Active Team Status: Inactive Member Role Status Dates Adela Baker , OFFICE SPEC-C Primary Care Provider Active Start: March 02, 2023 End: March 02, 2023 Juan Henao DO Emergency Provider Active St art: March 02, 2023 End: March 02, 2023 Team Status: Inactive Member Role Status Dates Adela Baker , OFFICE SPEC-C Primary Care Provider Active Start: May 07, 2023 End: May 07, 2023 Camille Dennison DO Emergency Provider Active Start: May 07, 2023 End: May 07, 2023 Team Status: Inactive Member Role Status Dates Adela Baker , OFFICE SPEC-C Primary Care Provider Active Start: May 28, 2023 End: May 28, 2023 Carine Montoya MD Attending Provider Active Start: May 28, 2023 End: May 28, 2023 Team Status: Inactive Member Role Status Dates Adela Baker , OFFICE SPEC-C Primary Care Provider Active Start: June 30, 2023 End: June 30, 2023 Ashleigh Jackson MD Emergency Provider Active Start: June 30, 2023 End: June 30, 2023 Team Status: Inactive Member Role Status Dates Adela Baker , OFFICE SPEC-C Primary Care Pr james, Attending Provider Active Start: November 09, 2023 End: Kizzy 30th, 2024 Goals (unrecognized section and content) Goals may [...] BE BASED ON THE PRIMARY CLINICAL RECORDS. [facility] [employer] [facility]. provides no warranty or guarantee of the accuracy or completeness of information in this document.
--- NOTE | 2023-12-02 15:45 | ED_ITS ---
HPI - Abdominal Pain General Chief Complaint: Abdominal Pain Stated Complaint: ABDOMINAL PAIN Time Seen by Provider: 12/02/23 14:58 Source: patient Mode of arrival: Wheelchair Limitations: no limitations History of Present Illness HPI narrative: The patient is coming to the ER with a small complaint of constipation, the patient mentioned that she is not using any laxatives , the patient mentioned that when she used laxatives she does not know when she is going to the bathroom and that is why she is not using anything She always tried to dig the stool from her rectum with her hand . Patient have no nausea no vomiting no abdominal pain and she is worried that she does not have a bowel movement today because she have to go to the restaurant tomorrow Related Data Home Medications ?Medication ?Instructions ?Recorded ?Confirmed amlodipine 5 mg tablet 5 mg PO DAILY 12/13/22 12/13/22 levothyroxine 88 mcg tablet 88 mcg PO QDAY 12/13/22 12/13/22 simvastatin 20 mg tablet 20 mg PO DAILY 12/13/22 12/13/22 Previous Rx's ?Medication ?Instructions ?Recorded permethrin 5 % topical cream 1 applic topical ONCE 1 dose #60 03/22/23 grams prednisone 20 mg tablet See Rx Instructions .Route 03/22/23 .COMPLEX #12 tabs bisacodyl 5 mg tablet,delayed 5 mg PO DAILY #10 tabs 12/02/23 release (Dulcolax (bisacodyl)) Allergies Allergy/AdvReac Type Severity Reaction Status Date / Time No Known Drug Allergies Allergy Verified 12/02/23 14:40 Review of Systems ROS Status of ROS 10 or more systems reviewed and unremark able except as noted in history and below [facility] Social History Smoking status: Never smoker Exam Narrative Exam Narrative: Nurses notes and vital signs reviewed and patient is not hypoxic. General: Well-appearing and in no apparent distress. Skin: Warm, dry, no pallor noted. No rash. Head: Normocephalic, atraumatic. Neck: Supple, non-tender. Eye: Pupils are equal, round and EOMI. No scleral icterus. Ears, Nose, Mouth, and Throat: TM are clear, no nasal mucosal hypertrophy. Oral mucosa is moist, no posterior oropharynx erythema, uvula is mid-line Cardiovascular: Regular Rate and Rhythm without murmur, gallop or rub. Respiratory: No accessory muscle use or respiratory distress. Lungs are clear to auscultation, no wheezing, rales or rhonchi Chest Wall: no tenderness Back: No midline thoracic or lumbar vertebral tenderness. No CVA tenderness Musculoskeletal: normal ROM, no calf or popliteal tenderness, no lower extremity edema/swelling GI: Abdomen is soft, non-distended. Normal bowel sounds. No masses appreciated. No tenderness to palpation. No rebound, guarding, or rigidity noted. Rectal exam shows that the patient does not have any hemorrhoids or any bleeding she also had no impacted stool on exam Neurological: A&O x4. No cranial nerve dysfunction observed. No truncal ataxia. Moves all extremities. Sensation intact. Psychiatric: Cooperative and interactive. Normal mood and affect. Constitutional Vital Signs, click to edit/add: Last Vital Signs Temp 98 F 12/02/23 14:40 Pulse 50 L 12/02/23 14:40 Resp 20 12/02/23 14:40 BP 100/64 12/02/23 14:40 Pulse Ox 96 12/02/23 14:40 O2 Del Method Room Air 12/02/23 14:40 Course Vital Signs Vital signs: Vital Signs Temperature 98 F 12/02/23 14:40 Pulse Rate 50 L 12/02/23 14:40 Respiratory Rate 20 12/02/23 14:40 Blood Pressure 100/64 12/02/23 14:40 Pulse Oximetry 96 12/02/23 14:40 Oxygen Delivery Method Room Air 12/02/23 14:40 Temperature 98 F 12/02/23 14:40 Pulse Rate 50 L 12/02/23 14:40 Respiratory Rate 20 12/02/23 14:40 Blood Pressure 100/64 12/02/23 14:40 Pulse Oximetry 96 12/02/23 14:40 Oxygen Delivery Method Room Air 12/02/23 14:40 MDM - Abdominal Pain MDM Narrative Medical decision making narrative: The patient right now with presented to the ER for the sole reason that she wants stool disimpaction She does not take any laxatives and she also does not want any enema My attempt at the bedside to do disimpaction was not successful due to the fact that there was no stool at the rectal verge to be removed Right now I did explain to the patient that she can go to the bathroom using magnesium citrate at home as she provided with a bottle Patient also to use Dulcolax Patient have no abdominal pain no nausea no vomiting The patient is to follow up with primary care physician in next 2-3 days or to return to the emergency department should any of the signs or symptoms worsen or new symptoms develop. The patient agrees with the following Diagnosis and Treatment plan and the patient will be discharged home. Discharge Plan Discharge Stand Alone Forms: Portal Instructions Chief Complaint: Abdominal Pain Clinical Impression: Constipation Qualifiers: Constipation type: other constipation type Qualified Code(s): K59.09 - Other constipation Patient Disposition: Home, Self-Care Time of Disposition Decision: 15:30 Prescriptions / Home Meds: New bisacodyl [Dulcolax (bisacodyl)] 5 mg tablet,delayed release (DR/EC) 5 mg PO DAILY Qty: 10 0RF No Action prednisone 20 mg tablet See Rx Instructions .ROUTE .COMPLEX Qty: 12 0RF Rx Instructions: 3 tabs daily for 2 days, then 2 tabs daily for 2 days, then 1 tab daily for 2 days permethrin 5 % cream 1 applic topical ONCE Qty: 60 0RF Rx Instructions: Apply to skin and wash off after 8-10 hours levothyroxine 88 mcg tablet 88 mcg PO QDAY amlodipine 5 mg tablet 5 mg PO DAILY simvastatin 20 mg tablet 20 mg PO DAILY Print Language: Polish Instructions: Constipation (DC) Referrals: CATERINA BAKER [Primary Care Provider] - 1 week
[2023-12-02] MEDS: MAGNESIUM CITRATE 296 ML SOLUTION PO (16:15)
== END 2023-12-02 16:20 | disposition home or self-care (01) ==
PROVIDERS: Emergency Provider Emergency Medicine; PCP Nurse Practitioner Family
DX: K59.09 Other constipation (principal)
CPT/HCPCS: 99283

== ENCOUNTER 2024-07-11 13:05 | Emergency (ER) | payer MEDICARE, MEDICAID, SELFPAY ==
[2024-07-11 13:10] VITALS: BP 111/78; PULSE 77; TEMP 36.7; O2SAT 99; BMI 53.5
--- OUTSIDE RECORDS SUMMARY | 2024-07-11 13:22 | XMS_ITS | CCD ---
Author Organization [facility] Providers Care Wrapping Machine Operator Name Role Phone PHYSICIAN, DEFAULT Unavailable Unavailable PHYSICIAN, DEFAULT Unavailable Unavailable PHYSICIAN, DEFAULT Unavailable Unavailable PHYSICIAN, DEFAULT Unavailable Unavailable RAMINENI, GONZALEZ K Unavailable Unavailable RAMINENI, GONZALEZ K Unavailable Unavailable UNKNOWN, PHYSICIAN Unavailable Unavailable UNKNOWN, PHYSICIAN Unavailable Unavailable RAMINENI, GONZALEZ K Unavailable Unavailable RAMINENI, GONZALEZ K Unavailable Unavailable UNKNOWN, PHYSICIAN Unavailable Unavailable UNKNOWN, PHYSICIAN Unavailable Unavailable [place] Unavailable Unavailable RAMINENI, GONZALEZ K Unavailable Unavailable RAMINENI, GONZALEZ K Unavailable Unavailable RAMINENI, GONZALEZ K Unavailable Unavailable UNKNOWN, PHYSICIAN Unavailable Unavailable UNKNOWN, PHYSICIAN Unavailable Unavailable LAURA Baker Adela Belkys Primary Care Provider LAURA Baker Adelakayley Rizvi Referring Provider MD Lukas Fried Attending Provider DO Jay Carvajal Emergency Provider ADELA Navarrete Primary Care Unavailable RADHA MUNIZ Admitting Unavailable RADHA MUNIZ Attending Unavailable RADHA MUNIZ Consulting Unavailable LUKAS HENRY Consulting Unavailable OLIVIA, ADELA Admitting Unavailable ADELA BAKER Attending Unavailable OLIVIA, ADELA Consulting Unavailable OLIVIA, ADELA Primary Care Unavailable DR ALISA ORELLANA Attending Unavailable BLANCA MCCORMICK Consulting Unavailab whit BAKER, ADELA Primary Care Unavailable DR ALISA ORELLANA Admitting Unavailable HECTOR GONZALEZ Consulting Unavailable LAURA Baker Primary Care Provider DO Juan Henao Emergency Provider LAURA Baker Primary Care Provider DO Jay Carvajal Emergency Provider DO Juan Bruno Emergency Provider LAURA Baker Adela Belkys Primary Care Provider [phone]( [phone] DO Juan Henao Emergency Provider DO Camille Dennison Emergency Provider [phone] MD Carine Montoya Attending Provider LAURA Baker Adela Belkys Primary Care Provider [phone]( [phone] MD Ashleigh Jackson Emergency Provider [phone] LAURA Baker Adela Belkys Primary Care Provider [phone]( [phone] LAURA Baker Adela Belkys Attending Provider [phone] Olivia Adela Belkys Primary Care Unavailable Juan [...] Carvajal Admitting Unavailable Jay Carvajal Attending Unavailable MOE NOYOLA Attending Unavailable MOE NOYOLA Attending Unavailable MOE NOYOLA Referring Unavailable Unavailable Primary Care Provider Unavailabl e Allergies Allergy Classification Reported Allergen(s) Allergy Type Date of Onset Reaction(s) Facility (1 source) NO KNOWN DRUG ALLERGIES; Translations: [NO KNOWN DRUG ALLERGIES] Propensity to adverse reactions (disorder) [address] [facility] Repository (1 source) No Known Allergies; Translations: [No Known Allergies] Propensity to adverse reactions (disorder) [facility] (10 sources) oxyCODONE; Translations: [oxycodone] Drug Allergy [address] [facility] (1 source) Acetaminophen / oxyCODONE Drug Allergy The [facility] Repository Medications Current Medications Medication Drug Class(es) Dates Sig (Normalized) Sig (Original) amLODIPine 5 mg oral tablet (4 sources) Dihydropyridine Calcium Channel Pepe amLODIPine (Norvasc) 5 MG tablet Active busPIRone hydrochloride 5 mg oral tablet (4 sources) take 1 tablet by mouth in the morning busPIRone (Buspar) 5 MG tablet Take 5 mg by mouth in the morning and 5 mg in the evening. Active colchicine 0.6 mg oral tablet (4 sources) colchicine (Colcrys) 0.6 MG tablet Active docusate sodium 100 mg oral capsule (9 [...] MG PO Daily January 20, 2017 12:00am ferrous sulfate 325 mg oral tablet (4 sources) take 1 tablet by mouth three times weekly ferrous sulfate 325 (65 Fe) MG tablet 1 tablet Orally Three times a Week Active hydrOXYzine hydrochloride 10 mg oral tablet (8 sources) Antihistamine Start: 08-11-2023 take 1-2 tablets by mouth once daily at bedtime hydrOXYzine HCl (Atarax) 10 MG tablet TAKE 1 TO 2 TABLETS BY MOUTH EVERY DAY AT BEDTIME FOR ITCHING 08/11/2023 Active Start: 05-07-2023 take 25 mg by mouth every eight hours Hydroxyzine Hcl Active 25 MG PO Q8H May 07, 2023 1:00am levothyroxine sodium 0.1 mg oral tablet (16 sources) l-Thyroxine Start: 01-13-2024 take 1 tablet by mouth once daily in the morning levothyroxine (Synthroid, Levoxyl) 100 MCG tablet TAKE 1 TABLET BY MOUTH ONCE DAILY IN THE MORNING ON AN EMPTY STOMACH 01/13/2024 Active Start: 01-20-2017 take 88 ug by mouth once daily Levothyroxine Active 88 MCG PO Daily January 20, 2017 12:00am LORazepam 0.5 mg oral tablet (4 sources) Benzodiazepine LORazepam (Ativa n) 0.5 MG tablet Active meloxicam 15 mg oral tablet (8 sources) [...] December 16, 2022 12:00am polyethylene glycol 3350 39797 mg powder for oral solution (20 sources) Osmotic Laxative Start: 08-18-2022 Polyethylene Glycol 3350 (Miralax) 17 gram powder in packet Active 17 GM PO Daily 08 09May 07, 2023 1:00am predniSONE 10 mg oral tablet (10 sources) Start: 03-19-2024 predniSONE (De ltasone) 10 MG tablet Indications: Right hand pain Day 1-2 take 3 tablets, Day 3-4 take 2 tablets, Day 5-6 take 1 tablet PO as directed 12 tablet 03/19/2024 Active Start: 02-01-2017 take 60 mg by mouth once daily at mealtime Prednisone Active 60 MG PO Daily 15 February 01, 2017 12:00am administer with food or milk Psyllium Husk (Metamucil) 0. 4 gram capsule (7 sources) Start: 08-18-2022 Psyllium [...] PO Twice daily 22 11June 30, 2023 1:00am Start: 06-30-2023 take 1 capsule by [facility] twice daily Sennosides (Senna) 8.6 mg capsule Active 8.6 MG PO Twice daily 14 June 30, 2023 12:00am sertraline 100 mg oral tablet (4 sources) Serotonin Reuptake Inhibitor sertraline (Zoloft) 100 MG tablet Active simvastatin 40 mg oral tablet (12 sources) HMG-CoA Reductase Inhibitor Start: 7 take 40 mg by mouth once daily Simvastatin Active 40 MG PO Daily January 20, 2017 12:00am traMADol hydrochloride 50 mg oral tablet (8 sources) Opioid Agonist Start: 7 Tramadol Active 0.5 TAB PO EVERY 1-4 HOURS January 20, 2017 12:00am Completed/Discontinued Medications Medication Drug Class(es) Dates Sig (Normalized) Sig (Original) amoxicillin 875 mg / clavulanate 125 mg oral tablet (10 sources) Penicillin-class Antibacterial Start: 03-18-2024 End: 03-28-2024 take 1 tablet by mouth in the morning amoxicillin-clav ulanate (Augmentin) 875-125 MG tablet Indications: Cellulitis of finger of right hand Take 1 tablet (875 mg) by mouth in the morning and 1 tablet (875 mg) before bedtime. Do all this for 10 days. 20 tablet 03/18/2024 03/28/2024 Start: 10-11-2022 take 1 tablet by andrés th twice daily Amoxicillin-Pot Clavulanate Active 1 TAB PO Twice daily October 11, 2022 12:00am 2 ml ketorolac tromethamine 30 mg/ml cartridge (4 sources) Nonsteroidal Anti-inflammatory Drug, Cyclooxygenase Inhibitor Start: 03-19-2024 End: 03-19-2024 ketorolac (Toradol) injection 60 mg Start: 03-19-2024 End: 03-19-2024 60 mg, Intramuscular, Once, On Fri03/19/24 at 1045, For 1 dose, Age >= 65 yrs: Max daily dose: 60 mg. Max duration: 5 days total ketorolac duration Start: 03-19-2024 End: 03-19-2024 ketorolac (Toradol) injectio n 60 mg Start: 03-19-2024 End: 03-19-2024 60 mg, Intramuscular, Once, On Fri03/19/24 at 1045, For 1 dose, Age >= 65 yrs: Max daily dose: 60 mg. 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] Onset: 09-18-2022 Episodic Other bone disease and musculoskeletal deformities (1 source) Other osteonecrosis, right shoulder; Translations: [OTHER OSTEONECROSIS, RIGHT SHOULDER] Onset: 01-21-2017 Chronic Other connective tissue disease (1 source) Presence of right artificial shoulder joint; Translations: [PRESENCE OF RIGHT ARTIFICIAL SHOULDER JOINT] Onset: 10-01-2017 Chronic Other connective tissue disease (2 sources) Pain in right hand; Translations: [Pain in right hand] 03-19-2024 Episodic Other gastrointestinal disorders (14 sources) Constipation; Translations: [...] 05-07-2023 Episodic Skin and subcutaneous tissue infections (10 sources) Cellulitis; Translations: [Cellulitis, unspecified] 10-11-2022 Episodic Sprains and strains (16 sources) Strain of muscle(s) and tendon(s) of the rotator cuff of right shoulder, subsequent encounter; Translations: [Strain of muscle(s) and tendon(s) of the rotator cuff of right shoulder, initial encounter] Onset: 01-15-2017 01-20-2017 Episodic Superficial injury; contusion (4 sources) Cat scratch injury; Translations: [Abrasion of right hand, initial encounter] 03-18-2024 Episodic Unclassified (2 sources) Unknown / UNK(Unknown) [...] Name Value Interpretation Reference Range Facility XR HAND 3+ VIEWS RIGHTon XR HAND 3+ VIEWS RIGHT EXAM: XR HAND 3+ VIEWS RIGHT HISTORY: Cat scratch FINDINGS: There is mild flexion of the digits. 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 There is chondrocalcinosis of the triangular fibrocartilage There is no soft tissue gas or radiopaque foreign body. There is no cortical destruction IMPRESSION: 1. No soft tissue gas or cortical destruction. No radiopaque foreign body 2. CPPD arthropathy of the wrist . Electronically Signed:Electronically signed by ROSE MARY OLMSTEAD MD at 19-Mar-2024 10:24:34 AM [facility] Normal Not Available XR Hand - right 3 Viewson EXAM: XR HAND 3+ VIE WS RIGHT HISTORY: Cat scratch FINDINGS: There is mild flexion of the digits. 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 There is chondrocalcinosis of the triangular fibrocartilage There is no soft tissue gas or radiopaque foreign body. There is no cortical destruction IMPRESSION: 1. No soft tissue gas or cortical destruction. No radiopaque foreign body 2. CPPD arthropathy of the wrist . Electronically Signed:Electronically signed by ROSE MARY OLMSTEAD MD at 19-Mar-2024 10:24:34 AM [facility] IMAGING Rose Mary Olmstead MD - 03/19/2024 EXAM: XR HAND 3+ VIEWS RIGHT HISTORY: Cat scratch FINDINGS: There is mild flexion of the digits. 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 There is chondrocalcinosis of the triangular fibrocartilage There is no soft tissue gas or radiopaque foreign body. There is no cortical destruction IMPRESSION: 1. No soft tissue gas or cortical destruction. No radiopaque foreign body 2. CPPD arthropathy of the wrist . Electronically Signed:Electronically signed by ROSE MARY OLMSTEAD MD at 19-Mar-2024 10:24:34 AM [facility] Radiology Study observation (narrative) [facility] XR Hand - right 3 ViewsOrder ed By: Rose Mary Olmstead on 03-19-2024 [facility] Work Phone: Bacteria [Presence] in Urine by AutomatedOrdered By: Adela Baker on 11-09-2023 Bacteria Auto Ql (U) 4+ [HPF] High None Seen [facility] Bilirubin Test strip Ql (U)O rdered By: Adela Baker on 11-09-2023 Bilirubin Ql (U) Negative Negative [facility] Calcium oxalate crystals [Pr esence] in Urine by Computer assisted methodOrdered By: Adela Baker on 11-09-2023 Calcium oxalate crystals Computer assisted Ql (U) 3+ [HPF] [facility] Color of Urine by AutoOrdere d By: Adela Baker on 11-09-2023 Color (U) Light-yellow Normal Yellow [facility] Comment on above: Order Comment: Name Collection Type:: Collection Method Unknown Performed By: #### C UU, ADDONUAPLUS #### [facility] [address] [id number] [place] Crystals.amorphous [Presence ] in Urine by Computer assisted methodOrdered By: Adela Baker on 11-09-2023 Crystals.amorphous Computer assisted Ql (U) Rare [HPF] [facility] Dipstick and Microscopicon 0 11-09-2023 Amorphous Crystal,Urine Rare Normal [facility] Comment on above: Order Comment: Name Collection Type:: Collection Method Unknown Performed By: #### C UU, ADDONUAPLUS #### [facility] [address] [id number] [place] Bacteria,Urine 4+ High None Seen [facility] Comment on above: Order Comment: Name Collection Type:: Collection Method Unknown Performed By: #### C UU, ADDONUAPLUS #### [facility] [address] [place] [address] [place] Bilirubin,Urine Negative Normal Negative [facility] Comment on above: Order Comment: Name Collection Type:: Collection Method Unknown Performed By: #### C UU, ADDONUAPLUS #### [facility] [address] [place] [address] [place] Calcium Oxalate Crystals,Urine 3+ Normal [facility] Comment on above: Order Comment: Name Collection Type:: Collection Method Unknown Performed By: #### C UU, ADDONUAPLUS #### [facility] [address] [id number] [place] Glucose Ql (U) Normal Normal Normal [facility] Comment on above: Order Comment: Name Collection Type:: Collection Method Unknown Performed By: #### C UU, ADDONUAPLUS #### [place] [address] [place] Hyaline Casts,Urine 0-8 Normal 0-8 [facility] Comment on above: Order Comment: Name Collection Type:: Collection Method Unknown Performed By: #### C UU, ADDONUAPLUS #### [address] Mucus,Urine 1+ Critically abnormal [facility] Comment on above: Order Comment: Name Collection Type:: Collection Method Unknown Result Comment: PERF ORMED BY: [place] [address] PATHOLOGIST VOLUNTEER RECRUITER FELICITAS BRINK M.D. Performed By: #### C UU, ADDONUAPLUS #### [address] Nitrite,Urine Negative Normal Negative [facility] Comment on above: Order Comment: Name Collection Type:: Collection Method Unknown Performed By: #### C UU, ADDONUAPLUS #### [address] Occult Blood,Urine Negative Normal Negative [facility] Comment on above: Order Comment: Name Collection Type:: Collection Method Unknown Result Comment: PERF ORMED BY: [place] [address] PATHOLOGIST VOLUNTEER RECRUITER FELICITAS BRINK M.D. Performed By: #### C UU, ADDONUAPLUS #### [address] Protein,Urine Negative Normal Negative [facility] Comment on above: Order Comment: Name Collection Type:: Collection Method Unknown Performed By: #### C UU, ADDONUAPLUS #### [place] [address] [place] RBC,Urine 3-4 Normal 0-4 [facility] Comment on above: Order Comment: Name Collection Type:: Collection Method Unknown Performed By: #### C UU, ADDONUAPLUS #### [place] [address] [place] Specificy [place],Urine 1.011 Normal 1.001-1.03 0 [facility] Comment on above: Order Comment: Name Collection Type:: Collection Method Unknown Performed By: #### C UU, ADDONUAPLUS #### [address] Squamous Epithelial Cell,Urine 1-2 Normal 0-2 [facility] Comment on above: Order Comment: Name Collection Type:: Collection Method Unknown Performed By: #### C UU, ADDONUAPLUS #### [address] Urobilinogen,Urine Normal Normal Normal [facility] Comment on above: Order Comment: Name Collection Type:: Collection Method Unknown Performed By: #### C UU, ADDONUAPLUS #### [address] WBC,Urine 3-4 Normal 0-4 [facility] Comment on above: Order Comment: Name Collection Type:: Collection Method Unknown Performed By: #### C UU, ADDONUAPLUS #### [address] Epithelial cells.squamous [# /area] in Urine sediment by Automated countOrdered By: Adela Baker on 11-09-2023 Epithelial cells.squamous Auto (Urine sed) [#/Area] 1-2 [HPF] 0-[address] [facility] Erythrocytes [#/area] in Uri ne sediment by Automated countOrdered By: Adela Baker on 11-09-2023 RBC Auto (Urine sed) [#/Area] 3-4 [HPF] 0-[address] [facility] Glucose [Mass/volume] in Uri ne by Test stripOrdered By: Adela Baker on 11-09-2023 Glucose Test strip (U) [Mass/Vol] Normal mg/dL Normal [facility] Hemoglobin Test strip Ql (U) Ordered By: Adela Baker on 11-09-2023 Hemoglobin Ql (U) Negative Negative [facility] Hyaline casts [#/area] in Ur ine sediment by Automated countOrdered By: Adela Baker on 06-30-2024 Hyaline casts Auto (Urine sed) [#/Area] 0-8 [LPF] 0-[address] [facility] Ketones [Presence] in Urine by Test stripOrdered By: Adela Baker on 11-09-2023 Ketones Ql (U) Negative Normal Negative [facility] Comment on above: Order Comment: Name Collection Type:: Collection Method Unknown Performed By: #### C UU, ADDONUAPLUS #### [place] [address] [place] Leukocyte esterase [Presence ] in Urine by Test stripOrdered By: Adela Baker on 11-09-2023 Leukocyte esterase Test strip Ql (U) Negative Normal Negative [facility] Comment on above: Order Comment: Name Collection Type:: Collection Method Unknown Performed By: #### C UU, ADDONUAPLUS #### [place] [address] [place] Leukocytes [#/area] in Urine sediment by Automated countOrdered By: Adela Baker on 11-09-2023 WBC Auto (Urine sed) [#/Area] 3-4 [HPF] 0-[address] [facility] Mucus [Presence] in Urine by AutomatedOrdered By: Adela Baker on 11-09-2023 Mucus Auto Ql (U) 1+ [LPF] Abnormal [facility] Nitrite Test strip Ql (U)Ord ered By: Adela Baker on 11-09-2023 Nitrite Ql (U) Negative Negative [facility] Protein Test strip (U) [Mass /Vol]Ordered By: Adela Baker on 11-09-2023 Protein (U) [Mass/Vol] Negative Negative [facility] Specific gravity Test strip (U) [Rel density]Ordered By: Adela Baker on 11-09-2023 Specific gravity (U) [Rel density] 1.011 1.001-1.[address] [facility] Urine Cultureon 11-09-2023 Bacteria identified Cx Nom (U) ORGANISM: Escherichia coli (O:ESCCOL) [place] Count >100,000 Aerobic SARI Charge (NMIC56) SUSCEPTIBILITY [...] RESISTANT TO ALL B-LACTAM DRUGS. PERFORMED BY: [place] [address] PATHOLOGIST VOLUNTEER RECRUITER FELICITAS BRINK M.D. Normal [facility] Comment on above: Performed By: #### C RAJAN POLLOCKPLUS #### [address] Urine appearanceOrdered By: Adela Baker on 11-09-2023 Appearance (U) Cloudy Critically abnormal Clear [facility] Comment on above: Order Comment: Name Collection Type:: Collection Method Unknown Performed By: #### C RAJAN POLLOCKPLUS #### [address] Urobilinogen Test strip (U) [Mass/Vol]Ordered By: Adela Baker on 11-09-2023 Urobilinogen (U) [Mass/Vol] Normal mg/dL Normal [facility] pH of Urine by Test stripOrd ered By: Adela Baker on 11-09-2023 pH (U) 6.0 [pH] Normal 5.0-9.[address] [facility] Comment on above: Order Comment: Name Collection Type:: Collection Method Unknown Performed By: #### C UU, ADDONUAPLUS #### [address] XR KUBon 07-19-2023 XR KUB [facility] [place] [address] [place] [address] XRay Report Signed Patient: Gogo Carey MR#: [id number] [birth year] : 1940 Acct:[id number] Age/Sex: 82 / F ADM Date: 07/18/23 Loc: ER Room: Type: [facility] ER Attending Dr: Copies to: Juan Kay [...] Noelle Pagan M.D.07/19/2023 8:14 AM Dictation Location: [place] [address] Transcribed By: [facility] 07/19/23813 Dictated By: Noelle Pagan MD 07/19/23811 Signed By: 07/19/23813 Normal [facility] Complete Blood Count Auto Di ffon 07-18-2023 Basophils (Bld) [#/Vol] 0.0 10*3/uL Normal 0.0-0.2 [facility] Comment on above: Result Comment: PERF ORMED BY: [address] [place] [address] PATHOLOGIST VOLUNTEER RECRUITER FELICITAS BRINK M.D. Performed By: #### C BC #### [address] Basophils/100 WBC (Bld) 0.3 % Normal . [facility] Comment on above: Performed By: #### C BC #### [address] Eosinophils (Bld) [#/Vol] 0.1 10*3/uL Normal 0.0-0.45 [facility] Comment on above: Performed By: #### C BC #### [address] Eosinophils/100 WBC (Bld) 1.9 % Normal . [facility] Comment on above: Performed By: #### C BC #### [address] Erythrocyte distribution width (RBC) [Ratio] 14.1 % Normal 11.9-15.3 [facility] Comment on above: Performed By: #### C BC #### [address] Hematocrit (Bld) [Volume fraction] 44.7 % Normal 34.0-46.4 [facility] Comment on above: Performed By: #### C BC #### [address] Hemoglobin (Bld) [Mass/Vol] 14.9 g/dL Normal 11.8-15.4 [facility] Comment on above: Performed By: #### C BC #### [place] [address] [place] Lymphocytes (Bld) [#/Vol] 1.3 10*3/uL Normal 1.00-4.8 [facility] Comment on above: Performed By: #### C BC #### [address] Lymphocytes/100 WBC (Bld) 18.7 % Normal . [facility] Comment on above: Performed By: #### C BC #### [address] MCH (RBC) [Entitic mass] 30.2 pg Normal 24.7-34.3 [facility] Comment on above: Performed By: #### C BC #### [address] MCV (RBC) [Entitic vol] 90.6 fL Normal 80-100 [facility] Comment on above: Performed By: #### C BC #### [address] Mean Corpuscular HGB Conc 33.3 g/dL Normal 32.0-35.0 [facility] Comment on above: Performed By: #### C BC #### [address] Monocytes (Bld) [#/Vol] 0.6 10*3/uL Normal 0.0-0.8 [facility] Comment on above: Performed By: #### C BC #### [address] Monocytes/100 WBC (Bld) 17.30 % Normal 0.00-20.00 [facility] Comment on above: Performed By: #### C BC #### [address] Monocytes/100 WBC (Bld) 8.5 % Normal . [facility] Comment on above: Performed By: #### C BC #### [address] Neutrophils (Bld) [#/Vol] 4.9 10*3/uL Normal 1.8-7.7 [facility] Comment on above: Performed By: #### C BC #### [address] Neutrophils/100 WBC (Bld) 70.6 % Normal . [facility] Comment on above: Performed By: #### C BC #### [address] NRBC% 0.0 /100{WBC} Normal 0-0.5 [facility] Comment on above: Performed By: #### C BC #### [address] Platelet mean volume (Bld) [Entitic vol] 8.3 fL Normal 6.3-10.7 [facility] Comment on above: Performed By: #### C BC #### [address] Platelets (Bld) [#/Vol] 289 10*3/uL Normal 150-450 [facility] Comment on above: Performed By: #### C BC #### [address] RBC (Bld) [#/Vol] 4.93 10*6/uL Normal 3.60-5.00 [facility] [facility] Comment on above: Performed By: #### C BC #### [address] WBC (Bld) [#/Vol] 6.9 10*3/uL Normal 3.8-11.6 [facility] Comment on above: Performed By: #### C BC #### [address] Comprehensive Metabolic Pane jeremiah 07-18-2023 Albumin [Mass/Vol] 4.1 g/dL Normal 3.5-5.7 [facility] Comment on above: Performed By: #### C BC #### [address] Albumin/Globulin [Mass ratio] 1.2 {ratio} Normal [facility] Comment on above: Performed By: #### C BC #### [address] ALP [Catalytic activity/Vol] 68 U/L Normal 34-104 [facility] Comment on above: Performed By: #### C BC #### [address] ALT [Catalytic activity/Vol] 10 U/L Normal 7-52 [facility] Comment on above: Performed By: #### C BC #### [address] Anion gap [Moles/Vol] 10.2 mmol/L Normal 6.0-15.0 [facility] Comment on above: Performed By: #### C BC #### [address] AST [Catalytic activity/Vol] 16 U/L Normal 13-39 [facility] Comment on above: Performed By: #### C BC #### [address] Bilirubin [Mass/Vol] 0.5 mg/dL Normal 0.3-1.0 [facility] Comment on above: Performed By: #### C BC #### [address] Calcium [Mass/Vol] 9.5 mg/dL Normal 8.6-10.3 [facility] Comment on above: Performed By: #### C BC #### [place] [address] [place] Chloride [Moles/Vol] 106 mmol/L Normal 98-107 [facility] Comment on above: Performed By: #### C BC #### [address] CO2 [Moles/Vol] 27.0 mmol/L Normal 21.0-31.0 [facility] Comment on above: Performed By: #### C BC #### [address] Creatinine [Mass/Vol] 0.95 mg/dL Normal 0.60-1.20 [facility] Comment on above: Performed By: #### C BC #### [place] [address] [place] Creatinine Clr Calc Pharmacy 43.89 Normal [facility] Comment on above: Performed By: #### C BC #### [place] [address] [place] GFR/1.73 sq M.predicted MDRD (S/P/Bld) [Vol rate/Area] mL/min/{1.73_m2} Normal [facility] Comment on above: Performed By: #### C BC #### [facility] [address] Globulin (S) [Mass/Vol] 3.3 g/dL Normal [facility] Comment on above: Performed By: #### C BC #### [address] Glucose [Mass/Vol] 114 mg/dL High 70-100 [facility] Comment on above: Result Comment: [facility] Glucose Reference Range is dependent on time and content of last meal. Glucose of more than 200 mg/dL in a nonstressed, ambulatory subject supports the diagnosis of Diabetes Mellitus. ADA recommended reference range Performed By: #### C BC #### [address] Potassium [Moles/Vol] 4.2 mmol/L Normal 3.5-5.1 [facility] Comment on above: Performed By: #### C BC #### [address] Protein [Mass/Vol] 7.4 g/dL Normal 6.4-8.9 [facility] Comment on above: Performed By: #### C BC #### [address] Sodium [Moles/Vol] 139 mmol/L Normal 136-145 [facility] Comment on above: Performed By: #### C BC #### [place] [address] [place] Urea nitrogen [Mass/Vol] 15 mg/dL Normal 7-25 [facility] Comment on above: Performed By: #### C BC #### [address] ECG 12 lead ECGon 07-18-2023 ECG 12 lead ECG [facility] [place] [address] [place] [address] Electrocardiograph Report Signed Patient: Gogo Carey MR#: [id number] [birth year] : 1940 Acct:[id number] Age/Sex: 82 / F ADM Date: 07/18/23 Loc: ER Room: Type: [facility] ER Attending Dr: Ordering Provider: Brittany Agustin [...] Anterior leads Confirmed by JUAN KAY DO ([id number]) on 07/19/2023 1:53:48 AM Referred By: Electronically Signed By:JUAN KAY DO Transcribed By: MUS Signed By Juan Kay DO 07/18 0154 Normal [facility] Lipaseon 07-18-2023 Lipase [Catalytic activity/Vol] 37.0 U/L Normal 11.0-82.0 [facility] Comment on above: Result Comment: PERF ORMED BY: [place] [address] PATHOLOGIST VOLUNTEER RECRUITER FELICITAS BRINK M.D. Performed By: #### C BC #### [address] Alanine aminotransferase [En zymatic activity/volume] in Serum or PlasmaOrdered By: Ashleigh Jackson on 06-30-2023 ALT [Catalytic activity/Vol] 11 U/L Normal 7-[address] [facility] Comment on above: Performed By: #### C BC #### [place] [address] Albumin [Mass/volume] in Ser um or Plasma by Bromocresol green (BCG) dye binding methoOrdered By: Ashleigh Jackson on 06-30-2023 Albumin BCG dye [Mass/Vol] 4.0 g/dL 3.5-5.[address] [facility] Alkaline phosphatase [Enzyma tic activity/volume] in Serum or PlasmaOrdered By: Ashleigh Jackson on 06-30-2023 ALP [Catalytic activity/Vol] 67 U/L Normal 34-[address] [facility] Comment on above: Performed By: #### C BC #### [address] Aspartate aminotransferase [ Enzymatic activity/volume] in Serum or PlasmaOrdered By: Ashleigh Jackson on 06-30-2023 AST [Catalytic activity/Vol] 19 U/L Normal 13-[address] [facility] Comment on above: Order Comment: Unacc eptable specimen due to HEMOLYSIS. Redraw reordered. Result Comment: PERF ORMED BY: [place] [address] PATHOLOGIST VOLUNTEER RECRUITER FELICITAS BRINK M.D. Performed By: #### C BC #### [address] Automated basophil %Ordered By: Ashleigh Jackson on 06-30-2023 Basophils/100 WBC (Bld) 0.5 % Normal . [facility] Comment on above: Order Comment: REDRA W Performed By: #### C BC #### [address] Automated basophil countOrde red By: Ashleigh Jackson on 06-30-2023 Basophils (Bld) [#/Vol] 0.0 10*3/uL Normal 0.0-0.[address] [facility] Comment on above: Order Comment: REDRA W Result Comment: PERF ORMED BY: [place] [address] PATHOLOGIST VOLUNTEER RECRUITER FELICITAS BRINK M.D. Performed By: #### C BC #### [place] [id number] [place] Automated blood monocyte cou ntOrdered By: Ashleigh Jackson on 06-30-2023 Monocytes (Bld) [#/Vol] 0.8 10*3/uL Normal 0.0-0.[address] [facility] Comment on above: Order Comment: REDRA W Performed By: #### C BC #### [address] Automated eosinophil %Ordere d By: Ashleigh Jackson on 06-30-2023 Eosinophils/100 WBC (Bld) 2.0 % Normal . [facility] Comment on above: Order Comment: REDRA W Performed By: #### C BC #### [address] Automated eosinophil countOr dered By: Ashleigh Jackson on 06-30-2023 Eosinophils (Bld) [#/Vol] 0.1 10*3/uL Normal 0.0-0.[address] [facility] Comment on above: Order Comment: REDRA W Performed By: #### C BC #### [address] Automated monocyte %Ordered By: Ashleigh Jackson on 06-30-2023 Monocytes/100 WBC (Bld) 10.4 % Normal . [facility] Comment on above: Order Comment: REDRA W Performed By: #### C BC #### [address] Automated neutrophil %Ordere d By: Ashleigh Jackson on 06-30-2023 Neutrophils/100 WBC (Bld) 65.8 % Normal . [facility] Comment on above: Order Comment: REDRA W Performed By: #### C BC #### [address] Automated urine color determ inationOrdered By: Ashleigh Jackson on 06-30-2023 Color (U) Yellow Normal Yellow [facility] Comment on above: Order Comment: Name Collection Type:: Clean-Voided Midstream Performed By: #### U A #### [address] Bilirubin Test strip Ql (U)O rdered By: Ashleigh Manuel on 06-30-2023 Bilirubin Ql (U) Negative Negative [facility] Bilirubin.total [Mass/volume ] in Serum or PlasmaOrdered By: Ashleigh Manuel on 06-30-2023 Bilirubin [Mass/Vol] 0.6 mg/dL Normal 0.3-1.0 [facility] Comment on above: Performed By: #### C BC #### [address] abdomen pelvis w conon CT abdomen pelvis w con [facility] [place] [address] [place] [address] CT Scan Report Signed Patient: Gogo Carey MR#: [id number] 05 : 1940 Acct:[id number] Age/Sex: 82 / F ADM Date: 06/30/23 Loc: ER Room: Type: [facility] ER Attending Dr: Copies to: Ashleigh [...] Huang Ng M.D.06/30/2023 7:05 PM Dictation Location: [place] [address] Transcribed By: [facility] 06/30/231904 Dictated By: Huang Ng DO 06/30/231899 Signed By: 06/30/231904 Normal [facility] Calcium [Mass/volume] in Ser um or PlasmaOrdered By: Ashleigh Jackson on 06-30-2023 Calcium [Mass/Vol] 9.6 mg/dL Normal 8.6-10.[address] [facility] Comment on above: Performed By: #### C BC #### [address] Carbon dioxide, total [Moles /volume] in Serum or PlasmaOrdered By: Ashleigh Jackson on 06-30-2023 CO2 [Moles/Vol] 22.0 mmol/L Normal 21.0-31.0 [facility] Comment on above: Performed By: #### C BC #### [address] Chloride [Moles/volume] in S mar[place] or PlasmaOrdered By: Ashleigh Jackson on 06-30-2023 Chloride [Moles/Vol] 107 mmol/L Normal 98-107 [facility] Comment on above: Performed By: #### C BC #### [address] Complete Blood Count Auto Di ffon 06-30-2023 Mean Corpuscular HGB Conc 33.3 g/dL Normal 32.0-35.0 [facility] Comment on above: Order Comment: REDRA W Performed By: #### C BC #### [address] Monocytes/100 WBC (Bld) 19.27 % Normal 0.00-20.00 [facility] Comment on above: Order Comment: REDRA W Performed By: #### C BC #### [address] NRBC% 0.1 /100{WBC} Normal 0-0.5 [facility] Comment on above: Order Comment: REDRA W Performed By: #### C BC #### [address] Comprehensive Metabolic Pane jeremiah 06-30-2023 Albumin [Mass/Vol] 4.0 g/dL Normal 3.5-5.7 [facility] Comment on above: Performed By: #### C BC #### [address] Anion Gap Normal 6.0-15.0 [facility] Comment on above: Result Comment: Spec imen hemolyzed, redraw requested Performed By: #### C BC #### [address] Aspartate Amino Transferase Normal 13-39 [facility] Comment on above: Result Comment: Spec imen hemolyzed, redraw requested Performed By: #### C BC #### [address] Creatinine Clr Calc Pharmacy 47.58 Normal [facility] Comment on above: Performed By: #### C BC #### [address] GFR/1.73 sq M.predicted MDRD (S/P/Bld) [Vol rate/Area] mL/min/{1.73_m2} Normal [facility] Comment on above: Performed By: #### C BC #### [address] Potassium Normal 3.5-5.1 [facility] Comment on above: Result Comment: Spec imen hemolyzed, redraw requested Performed By: #### C BC #### [address] Creatinine [Mass/volume] in Serum or PlasmaOrdered By: Ashleigh Jackson on 06-30-2023 Creatinine [Mass/Vol] 0.94 mg/dL Normal 0.60-1.20 [facility] Comment on above: Performed By: #### C BC #### [facility] [address] Erythrocyte distribution wid th [Ratio] by Automated countOrdered By: Ashleigh Jackson on 06-30-2023 Erythrocyte distribution width (RBC) [Ratio] 14.5 % Normal 11.9-15.[address] [facility] Comment on above: Order Comment: REDRA W Performed By: #### C BC #### [facility] [address] Erythrocytes [#/volume] in B lood by Automated countOrdered By: Ashleigh Jackson on 06-30-2023 RBC (Bld) [#/Vol] 4.57 10*6/uL Normal 3.60-5.00 [facility] Comment on above: Order Comment: REDRA W Performed By: #### C BC #### [address] Glucose [Mass/volume] in Ser um or PlasmaOrdered By: Ashleigh Jackson on 06-30-2023 Glucose [Mass/Vol] 93 mg/dL Normal 70-[address] [facility] Comment on above: ADA recommended refe rence rangeRandom Glucose Reference Range is dependent on time and content of last meal. Glucose of more than 200 mg/dL in a nonstressed, ambulatory subject supports the diagnosis of Diabetes Mellitus. Result Comment: [place] [facility] Glucose Reference Range is dependent on time and content of last meal. Glucose of more than 200 mg/dL in a nonstressed, ambulatory subject supports the diagnosis of Diabetes Mellitus. ADA recommended reference range Performed By: #### C BC #### [facility] [address] Hematocrit [Volume Fraction] of Blood by Automated countOrdered By: Ashleigh Jackson on 06-30-2023 Hematocrit (Bld) [Volume fraction] 41.2 % Normal 34.0-46.[address] [facility] Comment on above: Order Comment: REDRA W Performed By: #### C BC #### [place] [address] [place] Hemoglobin [Mass/volume] in BloodOrdered By: Ashleigh Jackson on 06-30-2023 Hemoglobin (Bld) [Mass/Vol] 13.7 g/dL Normal 11.8-15.[address] [facility] Comment on above: Order Comment: REDRA W Performed By: #### C BC #### [address] Ketones Auto test strip (U) [Mass/Vol]Ordered By: Ashleigh Jackson on 06-30-2023 Ketones (U) [Mass/Vol] Negative Negative [facility] Leukocytes [#/volume] correc ella for nucleated erythrocytes in Blood by Automated counOrdered By: Ashleigh Jackson on 06-30-2023 WBC corrected for nucl RBC Auto (Bld) [#/Vol] 7.4 10*3/uL 3.8-11.[address] [facility] Leukocytes [#/volume] in Blo od by Automated countOrdered By: Ashleigh Jackson on 06-30-2023 WBC (Bld) [#/Vol] 7.4 10*3/uL Normal 3.8-11.[address] [facility] Comment on above: Order Comment: REDRA W Performed By: #### C BC #### [address] Lipase [Enzymatic activity/v olume] in Serum or PlasmaOrdered By: Ashleigh Jackson on 06-30-2023 Lipase [Catalytic activity/Vol] 38.0 U/L Normal 11.0-82.[address] [facility] Comment on above: Result Comment: PERF ORMED BY: [place] [address] PATHOLOGIST VOLUNTEER RECRUITER FELICITAS BRINK M.D. Performed By: #### C BC #### [address] Lymphocytes [#/volume] in Bl ood by Automated countOrdered By: Ashleigh Jackson on 06-30-2023 Lymphocytes (Bld) [#/Vol] 1.6 10*3/uL Normal 1.00-4.[address] [facility] Comment on above: Order Comment: REDRA W Performed By: #### C BC #### [address] Lymphocytes/100 leukocytes i n Blood by Automated countOrdered By: Ashleigh Jackson on 06-30-2023 Lymphocytes/100 WBC (Bld) 21.3 % Normal . [facility] Comment on above: Order Comment: REDRA W Performed By: #### C BC #### [address] MCH [Entitic mass] by Automa ella countOrdered By: Ashleigh Jackson on 06-30-2023 MCH (RBC) [Entitic mass] 29.9 pg Normal 24.7-34.[address] [facility] Comment on above: Order Comment: REDRA W Performed By: #### C BC #### [address] MCHC Auto (RBC) [Mass/Vol]Or dered By: Ashleigh Jackson on 06-30-2023 MCHC (RBC) [Mass/Vol] 33.3 g/dL 32.0-35.0 [facility] MCV [Entitic volume] by Auto mated countOrdered By: Ashleigh Jackson on 06-30-2023 MCV (RBC) [Entitic vol] 90.0 fL Normal 80-[address] [facility] Comment on above: Order Comment: REDRA W Performed By: #### C BC #### [address] Monocyte distribution width [Entitic volume] in Blood by AutomatedOrdered By: Ashleigh Jackson on 06-30-2023 Monocyte distribution width Auto (Bld) [Entitic vol] 19.27 % 0.00-20.[address] [facility] Neutrophils [#/volume] in Bl ood by Automated countOrdered By: Ashleigh Jackson on 06-30-2023 Neutrophils (Bld) [#/Vol] 4.8 10*3/uL Normal 1.8-7.[address] [facility] Comment on above: Order Comment: REDRA W Performed By: #### C BC #### [address] Nitrite Test strip Ql (U)Ord ered By: Ashleigh Jackson on 06-30-2023 Nitrite Ql (U) Negative Negative [facility] No Panel InformationOrdered By: Ashleigh Jackson on 06-30-2023 Estimated GFR (CKD-EPI) > 60.0 mL/Min [facility] Creatinine Clearance (Chem 47.[address] [facility] Nucleated erythrocytes [Pres ence] in Blood by Automated countOrdered By: Ashleigh Jackson on 06-30-2023 Nucleated RBC Auto Ql (Bld) 0.1 /100{WBC} 0-0.[address] [facility] Platelet mean volume [Entiti c volume] in Blood by Automated countOrdered By: Ashleigh Jackson on 06-30-2023 Platelet mean volume (Bld) [Entitic vol] 8.1 fL Normal 6.3-10.[address] [facility] Comment on above: Order Comment: REDRA W Performed By: #### C BC #### [facility] [address] Platelets [#/volume] in Bloo d by Automated countOrdered By: Ashleigh Jackson on 06-30-2023 Platelets (Bld) [#/Vol] 304 10*3/uL Normal 150-[address] [facility] Comment on above: Order Comment: REDRA W Performed By: #### C BC #### [facility] [address] [place] [address] [place] Potassium [Moles/volume] in Serum or PlasmaOrdered By: Ashleigh Jackson on 06-30-2023 Potassium [Moles/Vol] 4.4 mmol/L Normal 3.5-5.1 [facility] Comment on above: Order Comment: Unacc eptable specimen due to HEMOLYSIS. Redraw reordered. Performed By: #### C BC #### [facility] [address] [place] [address] [place] Protein Auto test strip (U) [Mass/Vol]Ordered By: Ashleigh Jackson on 06-30-2023 Protein (U) [Mass/Vol] Negative Negative [facility] Protein [Mass/volume] in Ser um or PlasmaOrdered By: Ashleigh Jackson on 06-30-2023 Protein [Mass/Vol] 6.8 g/dL Normal 6.4-8.[address] [facility] Comment on above: Performed By: #### C BC #### [address] Serum globulin measurement b y calculation (mass/volume)Ordered By: Ashleigh Jackson on 06-30-2023 Globulin (S) [Mass/Vol] 2.8 g/dL Normal [facility] Comment on above: Performed By: #### C BC #### [address] Serum or plasma albumin/glob ulin mass ratioOrdered By: Ashleigh Jackson on 06-30-2023 Albumin/Globulin [Mass ratio] 1.4 {ratio} [facility] Comment on above: Performed By: #### C BC #### [address] Serum or plasma anion gap de terminationOrdered By: Ashleigh Jackson on 06-30-2023 Anion gap [Moles/Vol] See comment 6.0-15.0 [facility] Comment on above: Specimen hemolyzed, redraw requested Sodium [Moles/volume] in Ser um or PlasmaOrdered By: Ashleigh Jackson on 06-30-2023 Sodium [Moles/Vol] 137 mmol/L Normal 136-[address] [facility] Comment on above: Performed By: #### C BC #### [address] Specific gravity Auto test s trip (U) [Rel density]Ordered By: Ashleigh Jackson on 06-30-2023 Specific gravity (U) [Rel density] 1.018 1.001-1.[address] [facility] Urea nitrogen [Mass/volume] in Serum or PlasmaOrdered By: Ashleigh Jackson on 06-30-2023 Urea nitrogen [Mass/Vol] 16 mg/dL Normal 7-[address] [facility] Comment on above: Performed By: #### C BC #### [address] Urinalysison 06-30-2023 Appearance (U) Clear Normal Clear [facility] Comment on above: Order Comment: Name Collection Type:: Clean-Voided Midstream Performed By: #### U A #### [place] [address] [place] Bilirubin,Urine Negative Normal Negative [facility] Comment on above: Order Comment: Name Collection Type:: Clean-Voided Midstream Performed By: #### U A #### [address] Glucose Ql (U) Normal Normal Normal [facility] Comment on above: Order Comment: Name Collection Type:: Clean-Voided Midstream Performed By: #### U A #### [address] Ketones Ql (U) Negative Normal Negative [facility] Comment on above: Order Comment: Name Collection Type:: Clean-Voided Midstream Performed By: #### U A #### [address] Leukocyte esterase Test strip Ql (U) Negative Normal Negative [facility] Comment on above: Order Comment: Name Collection Type:: Clean-Voided Midstream Performed By: #### U A #### [place] [address] [place] Nitrite,Urine Negative Normal Negative [facility] Comment on above: Order Comment: Name Collection Type:: Clean-Voided Midstream Performed By: #### U A #### [address] Occult Blood,Urine Negative Normal Negative [facility] Comment on above: Order Comment: Name Collection Type:: Clean-Voided Midstream Result Comment: PERF ORMED BY: [place] [address] PATHOLOGIST VOLUNTEER RECRUITER FELICITAS BRINK M.D. Performed By: #### U A #### [place] [address] [place] Protein,Urine Negative Normal Negative [facility] Comment on above: Order Comment: Name Collection Type:: Clean-Voided Midstream Performed By: #### U A #### [place] [address] [place] Specificy [place],Urine 1.018 Normal 1.001-1.03 0 [facility] Comment on above: Order Comment: Name Collection Type:: Clean-Voided Midstream Performed By: #### U A #### [facility] [address] Urobilinogen,Urine Normal Normal Normal [facility] Comment on above: Order Comment: Name Collection Type:: Clean-Voided Midstream Performed By: #### U A #### [facility] [address] Urine clarity by refractomet ry automatedOrdered By: Ashleigh Jackson on 06-30-2023 Clarity Refractometry automated (U) Clear Clear [facility] Urine glucose measurement by automated test strip (mass/volume)Ordered By: Ashleigh Jackson on 06-30-2023 Glucose Auto test strip (U) [Mass/Vol] Normal mg/dL Normal [facility] Urine hemoglobin detection b y automated test stripOrdered By: Ashleigh Jackson on 06-30-2023 Hemoglobin Auto test strip Ql (U) Negative Negative [facility] Urine leukocyte esterase det ection by automated test stripOrdered By: Ashleigh Jackson on 06-30-2023 Leukocyte esterase Auto test strip Ql (U) Negative Negative [facility] Urine pH measurement by auto mated test stripOrdered By: Ashleigh Jackson on 06-30-2023 pH (U) 6.0 [pH] Normal 5.0-9.[address] [facility] Comment on above: Order Comment: Name Collection Type:: Clean-Voided Midstream Performed By: #### U A #### [facility] [address] [place] [id number] [facility] Urobilinogen Auto test strip (U) [Mass/Vol]Ordered By: Ashleigh Jackson on 06-30-2023 Urobilinogen (U) [Mass/Vol] Normal mg/dL Normal [facility] Alanine aminotransferase [En zymatic activity/volume] in Serum or PlasmaOrdered By: Carine Montoya on 05-28-2023 ALT [Catalytic activity/Vol] 13 U/L Normal 7-[address] [facility] Comment on above: Performed By: #### T SH3, T4F, CBC, CMP, ESR #### [facility] [address] Albumin [Mass/volume] in Ser um or Plasma by Bromocresol green (BCG) dye binding methoOrdered By: Carine Montoya on 05-28-2023 Albumin BCG dye [Mass/Vol] 4.1 g/dL 3.5-5.[address] [facility] Alkaline phosphatase [Enzyma tic activity/volume] in Serum or PlasmaOrdered By: Carine Montoya on 05-28-2023 ALP [Catalytic activity/Vol] 76 U/L Normal 34-[address] [facility] Comment on above: Performed By: #### T SH3, T4F, CBC, CMP, ESR #### [facility] [address] [place] [address] Aspartate aminotransferase [ Enzymatic activity/volume] in Serum or PlasmaOrdered By: Carine Montoya on 05-28-2023 AST [Catalytic activity/Vol] 20 U/L Normal 13-[address] [facility] Comment on above: Performed By: #### T SH3, T4F, CBC, CMP, ESR #### [facility] [address] [place] [address] Automated basophil %Ordered By: Carine Montoya on 05-28-2023 Basophils/100 WBC (Bld) 0.5 % Normal . [facility] Comment on above: Performed By: #### T SH3, T4F, CBC, CMP, ESR #### [facility] [address] [place] [address] Automated basophil countOrde red By: Carine Montoya on 05-28-2023 Basophils (Bld) [#/Vol] 0.0 10*3/uL Normal 0.0-0.[address] [facility] Comment on above: Performed By: #### T SH3, T4F, CBC, CMP, ESR #### [facility] [address] [place] [address] Automated blood monocyte cou ntOrdered By: Carine Montoya on 05-28-2023 Monocytes (Bld) [#/Vol] 0.7 10*3/uL Normal 0.0-0.[address] [facility] Comment on above: Performed By: #### T SH3, T4F, CBC, CMP, ESR #### [address] Automated eosinophil %Ordere d By: Carine Montoya on 05-28-2023 Eosinophils/100 WBC (Bld) 3.5 % Normal . [facility] Comment on above: Performed By: #### T SH3, T4F, CBC, CMP, ESR #### [address] Automated eosinophil countOr dered By: Carine Montoya on 05-28-2023 Eosinophils (Bld) [#/Vol] 0.2 10*3/uL Normal 0.0-0.[address] [facility] Comment on above: Performed By: #### T SH3, T4F, CBC, CMP, ESR #### [address] Automated monocyte %Ordered By: Carine Montoya on 05-28-2023 Monocytes/100 WBC (Bld) 12.7 % Normal . [facility] Comment on above: Performed By: #### T SH3, T4F, CBC, CMP, ESR #### [address] Automated neutrophil %Ordere d By: Carine Montoya on 05-28-2023 Neutrophils/100 WBC (Bld) 58.7 % Normal . [facility] Comment on above: Performed By: #### T SH3, T4F, CBC, CMP, ESR #### [address] Bilirubin.total [Mass/volume ] in Serum or PlasmaOrdered By: Carine Montoya on 05-28-2023 Bilirubin [Mass/Vol] 0.7 mg/dL Normal 0.3-1.0 [facility] Comment on above: Performed By: #### T SH3, T4F, CBC, CMP, ESR #### [address] Calcium [Mass/volume] in Ser um or PlasmaOrdered By: Carine Montoya on 01-17-2024 Calcium [Mass/Vol] 9.5 mg/dL Normal 8.6-10.[address] [facility] Comment on above: Performed By: #### T SH3, T4F, CBC, CMP, ESR #### [address] Carbon dioxide, total [Moles /volume] in Serum or PlasmaOrdered By: Carine Montoya on 05-28-2023 CO2 [Moles/Vol] 26.5 mmol/L Normal 21.0-31.0 [facility] Comment on above: Performed By: #### T SH3, T4F, CBC, CMP, ESR #### [address] Chloride [Moles/volume] in S marques or PlasmaOrdered By: Carine Montoya on 05-28-2023 Chloride [Moles/Vol] 108 mmol/L High 98-107 [facility] Comment on above: Performed By: #### T SH3, T4F, CBC, CMP, ESR #### [address] Complete Blood Count Auto Di ffon 05-28-2023 Mean Corpuscular HGB Conc 33.6 g/dL Normal 32.0-35.0 [facility] Comment on above: Performed By: #### T SH3, T4F, CBC, CMP, ESR #### [address] NRBC% 0.1 /100{WBC} Normal 0-0.5 [facility] Comment on above: Performed By: #### T SH3, T4F, CBC, CMP, ESR #### [address] Comprehensive Metabolic Pane jeremiah 05-28-2023 Albumin [Mass/Vol] 4.1 g/dL Normal 3.5-5.7 [facility] Comment on above: Performed By: #### T SH3, T4F, CBC, CMP, ESR #### [address] GFR/1.73 sq M.predicted MDRD (S/P/Bld) [Vol rate/Area] mL/min/{1.73_m2} Normal [facility] Comment on above: Performed By: #### T SH3, T4F, CBC, CMP, ESR #### [address] Creatinine [Mass/volume] in Serum or PlasmaOrdered By: Carine Montoya on 05-28-2023 Creatinine [Mass/Vol] 0.87 mg/dL Normal 0.60-1.20 [facility] Comment on above: Performed By: #### T SH3, T4F, CBC, CMP, ESR #### [address] Erythrocyte Sedimentation Ra iza 05-28-2023 ESR (Bld) [Velocity] 29 mm/h Normal 0-29 [facility] Comment on above: Result Comment: PERF ORMED BY: [place] [address] PATHOLOGIST VOLUNTEER RECRUITER FELICITAS BRINK M.D. Performed By: #### T SH3, T4F, CBC, CMP, ESR #### [address] Erythrocyte distribution wid th [Ratio] by Automated countOrdered By: Carine Montoya on 05-28-2023 Erythrocyte distribution width (RBC) [Ratio] 14.6 % Normal 11.9-15.[address] [facility] Comment on above: Performed By: #### T SH3, T4F, CBC, CMP, ESR #### [address] Erythrocyte sedimentation ra te by Photometric methodOrdered By: Carine Montoya on 05-28-2023 ESR Photometric method (Bld) [Velocity] 29 mm/hr 0-[address] [facility] Erythrocytes [#/volume] in B lood by Automated countOrdered By: Carine Montoya on 05-28-2023 RBC (Bld) [#/Vol] 4.57 10*6/uL Normal 3.60-5.00 [facility] Comment on above: Performed By: #### T SH3, T4F, CBC, CMP, ESR #### [facility] [address] [place] [address] [place] Glucose [Mass/volume] in Ser um or PlasmaOrdered By: Carine Montoya on 05-28-2023 Glucose [Mass/Vol] 87 mg/dL Normal 70-[address] [facility] Comment on above: ADA recommended refe rence rangeRandom Glucose Reference Range is dependent on time and content of last meal. Glucose of more than 200 mg/dL in a nonstressed, ambulatory subject supports the diagnosis of Diabetes Mellitus. Result Comment: [place] om Glucose Reference Range is dependent on time and content of last meal. Glucose of more than 200 mg/dL in a nonstressed, ambulatory subject supports the diagnosis of Diabetes Mellitus. ADA recommended reference range Performed By: #### T SH3, T4F, CBC, CMP, ESR #### [facility] [address] Hematocrit [Volume Fraction] of Blood by Automated countOrdered By: Carine Montoya on 05-28-2023 Hematocrit (Bld) [Volume fraction] 41.5 % Normal 34.0-46.[address] [facility] Comment on above: Performed By: #### T SH3, T4F, CBC, CMP, ESR #### [facility] [address] Hemoglobin [Mass/volume] in BloodOrdered By: Carine Montoya on 05-28-2023 Hemoglobin (Bld) [Mass/Vol] 13.9 g/dL Normal 11.8-15.[address] [facility] Comment on above: Performed By: #### T SH3, T4F, CBC, CMP, ESR #### [facility] [address] Leukocytes [#/volume] correc ella for nucleated erythrocytes in Blood by Automated counOrdered By: Carine Montoya on 05-28-2023 WBC corrected for nucl RBC Auto (Bld) [#/Vol] 5.6 10*3/uL 3.8-11.[address] [facility] Leukocytes [#/volume] in Blo od by Automated countOrdered By: Carine Montoya on 05-28-2023 WBC (Bld) [#/Vol] 5.6 10*3/uL Normal 3.8-11.[address] [facility] Comment on above: Performed By: #### T SH3, T4F, CBC, CMP, ESR #### [address] Lymphocytes [#/volume] in Bl ood by Automated countOrdered By: Carine Montoya on 05-28-2023 Lymphocytes (Bld) [#/Vol] 1.4 10*3/uL Normal 1.00-4.[address] [facility] Comment on above: Performed By: #### T SH3, T4F, CBC, CMP, ESR #### [address] Lymphocytes/100 leukocytes i n Blood by Automated countOrdered By: Carine Montoya on 05-28-2023 Lymphocytes/100 WBC (Bld) 24.6 % Normal . [facility] Comment on above: Performed By: #### T SH3, T4F, CBC, CMP, ESR #### [address] MCH [Entitic mass] by Automa ella countOrdered By: Carine Montoya on 05-28-2023 MCH (RBC) [Entitic mass] 30.5 pg Normal 24.7-34.[address] [facility] Comment on above: Performed By: #### T SH3, T4F, CBC, CMP, ESR #### [address] MCHC Auto (RBC) [Mass/Vol]Or dered By: Carine Montoya on 05-28-2023 MCHC (RBC) [Mass/Vol] 33.6 g/dL 32.0-35.0 [facility] MCV [Entitic volume] by Auto mated countOrdered By: Carine Montoya on 05-28-2023 MCV (RBC) [Entitic vol] 90.8 fL Normal 80-[address] [facility] Comment on above: Performed By: #### T SH3, T4F, CBC, CMP, ESR #### [address] Neutrophils [#/volume] in Bl ood by Automated countOrdered By: Carine Montoya on 05-28-2023 Neutrophils (Bld) [#/Vol] 3.3 10*3/uL Normal 1.8-7.[address] [facility] Comment on above: Performed By: #### T SH3, T4F, CBC, CMP, ESR #### [facility] [address] No Panel InformationOrdered By: Carine Montoya on 05-28-2023 Estimated GFR (CKD-EPI) > 60.0 mL/Min [facility] Creatinine Clearance (Chem N/A [facility] Nucleated erythrocytes [Pres ence] in Blood by Automated countOrdered By: Carine Montoya on 05-28-2023 Nucleated RBC Auto Ql (Bld) 0.1 /100{WBC} 0-0.[address] [facility] Platelet mean volume [Entiti c volume] in Blood by Automated countOrdered By: Carine Montoya on 05-28-2023 Platelet mean volume (Bld) [Entitic vol] 8.1 fL Normal 6.3-10.[address] [facility] Comment on above: Performed By: #### T SH3, T4F, CBC, CMP, ESR #### [facility] [address] [place] [address] [place] Platelets [#/volume] in Bloo d by Automated countOrdered By: Carine Montoya on 05-28-2023 Platelets (Bld) [#/Vol] 289 10*3/uL Normal 150-[address] [facility] Comment on above: Performed By: #### T SH3, T4F, CBC, CMP, ESR #### [facility] [address] [place] [address] [place] Potassium [Moles/volume] in Serum or PlasmaOrdered By: Carine Montoya on 05-28-2023 Potassium [Moles/Vol] 4.5 mmol/L Normal 3.5-5.1 [facility] Comment on above: Performed By: #### T SH3, T4F, CBC, CMP, ESR #### [facility] [address] [place] [address] [place] Protein [Mass/volume] in Ser um or PlasmaOrdered By: Carine Montoya on 05-28-2023 Protein [Mass/Vol] 6.8 g/dL Normal 6.4-8.[address] [facility] Comment on above: Performed By: #### T SH3, T4F, CBC, CMP, ESR #### [address] Serum globulin measurement b y calculation (mass/volume)Ordered By: Carine Montoya on 05-28-2023 Globulin (S) [Mass/Vol] 2.7 g/dL Normal [facility] Comment on above: Performed By: #### T SH3, T4F, CBC, CMP, ESR #### [address] Serum or plasma albumin/glob ulin mass ratioOrdered By: Carine Montoya on 05-28-2023 Albumin/Globulin [Mass ratio] 1.5 {ratio} [facility] Comment on above: Performed By: #### T SH3, T4F, CBC, CMP, ESR #### [address] Serum or plasma anion gap de terminationOrdered By: Carine Montoya on 05-28-2023 Anion gap [Moles/Vol] 11.0 mmol/L Normal 6.0-15.0 [facility] Comment on above: Performed By: #### T SH3, T4F, CBC, CMP, ESR #### [address] Sodium [Moles/volume] in Ser um or PlasmaOrdered By: Carine Montoya on 05-28-2023 Sodium [Moles/Vol] 141 mmol/L Normal 136-[address] [facility] Comment on above: Performed By: #### T SH3, T4F, CBC, CMP, ESR #### [address] Thyrotropin [Units/volume] i n Serum or PlasmaOrdered By: Carine Montoya on 05-28-2023 TSH Qn 13.24 m[IU]/L High 0.45-5.[address] [facility] Comment on above: Result Comment: PERF ORMED BY: [place] [address] PATHOLOGIST VOLUNTEER RECRUITER FELICITAS BRINK M.D. Performed By: #### C BC #### [address] Thyroxine (T4) free [Mass/vo lume] in Serum or PlasmaOrdered By: Carine Montoya on 05-28-2023 Free T4 [Mass/Vol] 0.67 ng/dL Normal 0.61-1.[address] [facility] Comment on above: Performed By: #### T SH3, T4F, CBC, CMP, ESR #### [address] Urea nitrogen [Mass/volume] in Serum or PlasmaOrdered By: Carine Montoya on 05-28-2023 Urea nitrogen [Mass/Vol] 21 mg/dL Normal 7-[address] [facility] Comment on above: Performed By: #### T SH3, T4F, CBC, CMP, ESR #### [address] Capillary blood glucose tavares urement by glucometer (mass/volume)Ordered By: Camille Dennison on 05-07-2023 Glucose [Mass/Vol] 115 mg/dL Normal [facility] Comment on above: Random Glucose Refer ence Range is dependent on time and content of last meal. Glucose of more than 200 mg/dL in a nonstressed, ambulatory subject supports the diagnosis of Diabetes Mellitus. Result Comment: [place] Glucose Reference Range is dependent on time and content of last meal. Glucose of more than 200 mg/dL in a nonstressed, ambulatory subject supports the diagnosis of Diabetes Mellitus. PERFORMED BY: [place] [address] PATHOLOGIST VOLUNTEER RECRUITER FELICITAS BRINK M.D. Performed By: #### G LULS #### Point of Care testing , ECG 12 lead ECGon 05-07-2023 ECG 12 lead ECG [facility] [place] [address] Electrocardiograph Report Signed Patient: Gogo Carey MR#: [id number] [birth year] : 1940 Acct:[id number] Age/Sex: 82 / F ADM Date: 05/07/23 Loc: ER Room: Type: [facility] ER Attending Dr: Ordering Provider: Camille Dennison [...] complexes Confirmed by Daniel DE SANTIAGO DO ([id number]) on 05/08/2023 6:12:51 AM Referred By: Electronically Signed By:Daniel DE SANTIAGO DO Transcribed By: MUS Signed By Daniel De Santiago DO 1 07/09/22 0612 Normal [facility] XR acute abdomen serieson XR acute abdomen series [facility] [place] [address] [place] [address] XRay Report Signed Patient: Gogo Carey MR#: [id number] [birth year] : 1940 Acct:[id number] Age/Sex: 82 / F ADM Date: 03/02/23 [...] CONSTIPATION. Impression dictated by: Brady Hanson Jr., D.OSarah03/02/2023 4:03 PM Dictation Location: [facility]15 Transcribed By: ANIKA 03/02/23 160 Dictated By: Brady Hanson Jr, DO 03/02/23 160 Signed By: 03/02/23 160 Normal [facility] XR KUBon 12-16-2022 XR KUB [facility] [place] [address] XRay Report Signed Patient: Gogo Carey MR#: [id number] [birth year] : 1940 Acct:[id number] Age/Sex: 82 / F ADM Date: 12/16/22 Loc: ER Room: Type: PRE ER Attending Dr: Copies to: FRANKY VARNER Ordering Provider: FRANKY VARNER Date of Service: 12/16/22 XR/XR KUB: [...] Noelle Pagan M.D.12/16/2022 4:03 PM Dictation Location: [facility]02 Transcribed By: ANIKA 12/16/22 160 Dictated By: Noelle Pagan MD 12/16/22 160 Signed By: 12/16/22 160 Normal [facility] CBC AUTO DIFFon 09-16-2022 BASO # 0.0 103/ul Normal 0.0-0.1 [facility] Comment on above: Performed By: #### C MP, LIPID, TSH, T7 #### [facility] [address] [address] [address] Grace Durand Basophils/100 WBC (Bld) 0.3 % Normal 0.2-2.0 [facility] Comment on above: Performed By: #### C MP, LIPID, TSH, T7 #### [facility] [address] [place] [address] Dr. Grace Durand EO # 0.1 103/ul Normal 0.0-0.7 [facility] Comment on above: Performed By: #### C MP, LIPID, TSH, T7 #### [facility] [address] [place] [address] Dr. Grace Durand Eosinophils/100 WBC (Bld) 1.3 % Normal 0.9-7.0 [facility] Comment on above: Performed By: #### C MP, LIPID, TSH, T7 #### [facility] [address] [place] [address] Dr. Grace Durand Erythrocyte distribution width (RBC) [Ratio] 13.8 % Normal 11.0-15.0 [facility] Comment on above: Performed By: #### C MP, LIPID, TSH, T7 #### [facility] [address] [place] [address] Dr. Grace Durand Hematocrit (Bld) [Volume fraction] 42.9 % Normal 36.0-48.0 [facility] Comment on above: Performed By: #### C MP, LIPID, TSH, T7 #### [facility] [address] [place] [address] Dr. Grace Durand Hemoglobin (Bld) [Mass/Vol] 14.2 g/dL Normal 12.0-16.0 [facility] Comment on above: Performed By: #### C MP, LIPID, TSH, T7 #### [facility] [address] [place] [address] Dr. Grace Durand IG # 0.02 10e3/ul Normal 0.00-0.03 [facility] Comment on above: Performed By: #### C MP, LIPID, TSH, T7 #### [facility] [address] [place] [address] Dr. Grace Durand IG % 0.3 % Normal 0.0-0.5 [facility] Comment on above: Performed By: #### C MP, LIPID, TSH, T7 #### [facility] [address] [place] [address] Dr. Grace Durand LYMPH # 1.6 103/ul Normal 1.2-3.8 [facility] Comment on above: Performed By: #### C MP, LIPID, TSH, T7 #### [facility] [address] [place] [address] Dr. Grace Durand Lymphocytes/100 WBC (Bld) 22.8 % Normal 20.5-60.0 [facility] Comment on above: Performed By: #### C MP, LIPID, TSH, T7 #### [facility] [address] [place] [address] Dr. Grace Durand MANUAL DIFF REQ NO Normal [facility] Comment on above: Performed By: #### C MP, LIPID, TSH, T7 #### [facility] [address] [place] [address] Dr. Grace Durand MCH (RBC) [Entitic mass] 30.0 pg Normal 26.7-34.0 [facility] Comment on above: Performed By: #### C MP, LIPID, TSH, T7 #### [facility] [address] [place] [address] Dr. Grace Durand MCHC (RBC) [Mass/Vol] 33.1 g/dL Normal 29.9-35.2 [facility] Comment on above: Performed By: #### C MP, LIPID, TSH, T7 #### [facility] [address] [place] [address] Dr. Grace Durand MCV (RBC) [Entitic vol] 90.5 fL Normal 81.0-99.0 [facility] Comment on above: Performed By: #### C MP, LIPID, TSH, T7 #### [facility] [address] [place] [address] Dr. Grace Durand MONO # 0.7 103/ul Normal 0.3-0.8 [facility] Comment on above: Performed By: #### C MP, LIPID, TSH, T7 #### [facility] [address] [place] [address] Dr. Grace Durand Monocytes/100 WBC (Bld) 10.4 % Normal 1.7-12.0 [facility] Comment on above: Performed By: #### C MP, LIPID, TSH, T7 #### [facility] [address] [place] [address] Dr. Grace Durand NEUT # 4.6 103/ul Normal 1.4-6.5 [facility] Comment on above: Performed By: #### C MP, LIPID, TSH, T7 #### [facility] [address] [place] [address] Dr. Grace Durand Neutrophils/100 WBC (Bld) 64.9 % Normal 43.0-75.0 [facility] Comment on above: Performed By: #### C MP, LIPID, TSH, T7 #### [facility] [address] [place] [address] Dr. Grace Durand Platelet mean volume (Bld) [Entitic vol] 9.6 fL Normal 9.5-13.5 [facility] Comment on above: Performed By: #### C MP, LIPID, TSH, T7 #### [facility] [address] [place] [address] Dr. Grace Durand PLT 297 103/ul Normal 150-450 [facility] Comment on above: Performed By: #### C MP, LIPID, TSH, T7 #### [facility] [address] [place] [address] Dr. Grace Durand RBC 4.74 106/ul Normal 4.20-5.40 [facility] Comment on above: Performed By: #### C MP, LIPID, TSH, T7 #### [facility] [address] [place] [address] Dr. Grace Durand WBC 7.0 103/ul Normal 4.0-11.0 [facility] Comment on above: Performed By: #### C MP, LIPID, TSH, T7 #### [facility] [address] [place] [address] ABD/PELV W CONon [...] by: HECTOR GONZALEZ Date: 2022-09-16 19:29 Normal [facility] LACTATE/LACTIC ACIDon 2022 Lactate [Moles/Vol] 1.7 mmol/L Normal 0.4-2.0 [facility] Comment on above: Performed By: #### L ACT #### [facility] [address] [place] [address] Dr. Grace Durand PROF CHEM 8 (BAS METB)on Anion gap [Moles/Vol] 12.9 mmol/L Normal [facility] Comment on above: Performed By: #### B MP #### [facility] [address] [address] [address] Grace Durand Calcium [Mass/Vol] 9.5 mg/dL Normal 8.5-10.1 [facility] Comment on above: Performed By: #### B MP #### [facility] [address] [address] [address] Grace Durand Chloride [Moles/Vol] 107 mmol/L Normal 98-107 [facility] Comment on above: Performed By: #### B MP #### [facility] [address] [address] [address] Grace Durand CO2 [Moles/Vol] 23.6 mmol/L Normal 21.0-32.0 [facility] Comment on above: Performed By: #### B MP #### [facility] [address] [address] [address] Grace Durand Creatinine [Mass/Vol] 1.14 mg/dL Critically high 0.55-1.02 [facility] Comment on above: Performed By: #### B MP #### [facility] [address] [address] [address] Grace Durand EGFR-AF UKRAINIAN 56 mL/min/1.73m2 Critically low >=60 [facility] Comment on above: Performed By: #### B MP #### [facility] [address] [address] [address] Grace Durand EGFR-NON AF UKRAINIAN 46 mL/min/1.73m2 Critically low >=60 [facility] Comment on above: Performed By: #### B MP #### [facility] [address] [address] [address] Grace Durand Glucose [Mass/Vol] 120 mg/dL Critically high 74-106 [facility] Comment on above: Performed By: #### B MP #### [facility] [address] [address] [address] Grace Durand Potassium [Moles/Vol] 3.5 mmol/L Normal 3.5-5.1 [facility] Comment on above: Performed By: #### B MP #### [facility] [address] [address] [address] Grace Durand Sodium [Moles/Vol] 140 mmol/L Normal 136-145 [facility] Comment on above: Performed By: #### B MP #### [facility] [address] [address] [address] Grace Durand Urea nitrogen [Mass/Vol] 14.0 mg/dL Normal 7.0-18.0 [facility] Comment on above: Performed By: #### B MP #### [facility] [address] [place] [address] Dr. Grace Durand Urea nitrogen/Creatinine [Mass ratio] 12.3 mg/mg Normal [facility] Comment on above: Performed By: #### B MP #### [facility] [address] [place] [address] Dr. Grace Durand XR ABD FLAT UP_PA [...] LUKAS HENRY Date: 2022-07-20 16:03 Normal [facility] T4 LABCORPon 10-05-2021 T4 [Mass/Vol] 6.6 ug/dL Normal 4.5-12.0 [facility] Comment on above: Performed By: #### T 4LC #### [facility] [address] [place] [address] Dr. Grace Durand INSULINon 10-02-2021 Insulin 7.4 uIU/mL Normal 2.6-24.9 [facility] Comment on above: Performed By: #### C MP, LIPID, TSH, T7 #### [facility] [address] [place] [address] Dr. Grace Durand CBC AUTO DIFFon 10-01-2021 BASO # 0.0 103/ul Normal 0.0-0.1 [facility] Comment on above: Performed By: #### C MP, LIPID, TSH, T7 #### [facility] [address] [place] [address] Dr. Grace Durand Basophils/100 WBC (Bld) 0.4 % Normal 0.2-2.0 [facility] Comment on above: Performed By: #### C MP, LIPID, TSH, T7 #### [facility] [address] [place] [address] Dr. Grace Durand EO # 0.2 103/ul Normal 0.0-0.7 [facility] Comment on above: Performed By: #### C MP, LIPID, TSH, T7 #### [facility] [address] [place] [address] Dr. Grace Durand Eosinophils/100 WBC (Bld) 3.1 % Normal 0.9-7.0 [facility] Comment on above: Performed By: #### C MP, LIPID, TSH, T7 #### [facility] [address] [place] [address] Dr. Grace Durand Erythrocyte distribution width (RBC) [Ratio] 13.6 % Normal 11.0-15.0 [facility] Comment on above: Performed By: #### C MP, LIPID, TSH, T7 #### [facility] [address] [place] [address] Dr. Grace Durand Hematocrit (Bld) [Volume fraction] 45.9 % Normal 36.0-48.0 [facility] Comment on above: Performed By: #### C MP, LIPID, TSH, T7 #### [facility] [address] [place] [address] Dr. Grace Durand Hemoglobin (Bld) [Mass/Vol] 14.7 g/dL Normal 12.0-16.0 [facility] Comment on above: Performed By: #### C MP, LIPID, TSH, T7 #### [facility] [address] [place] [address] Dr. Grace Durand IG # 0.01 10e3/ul Normal 0.00-0.03 [facility] Comment on above: Performed By: #### C MP, LIPID, TSH, T7 #### [facility] [address] [place] [address] Dr. Grace Durand IG % 0.2 % Normal 0.0-0.5 [facility] Comment on above: Performed By: #### C MP, LIPID, TSH, T7 #### [facility] [address] [place] [address] Dr. Grace Durand LYMPH # 1.5 103/ul Normal 1.2-3.8 [facility] Comment on above: Performed By: #### C MP, LIPID, TSH, T7 #### [facility] [address] [place] [address] Dr. Grace Durand Lymphocytes/100 WBC (Bld) 30.0 % Normal 20.5-60.0 [facility] Comment on above: Performed By: #### C MP, LIPID, TSH, T7 #### [facility] [address] [place] [address] Dr. Grace Durand MANUAL DIFF REQ NO Normal [facility] Comment on above: Performed By: #### C MP, LIPID, TSH, T7 #### [facility] [address] [place] [address] Dr. Grace Duradn MCH (RBC) [Entitic mass] 29.1 pg Normal 26.7-34.0 [facility] Comment on above: Performed By: #### C MP, LIPID, TSH, T7 #### [facility] [address] [place] [address] Dr. Grace Durand MCHC (RBC) [Mass/Vol] 32.0 g/dL Normal 29.9-35.2 [facility] Comment on above: Performed By: #### C MP, LIPID, TSH, T7 #### [facility] [address] [place] [address] Dr. Grace Durand MCV (RBC) [Entitic vol] 90.7 fL Normal 81.0-99.0 [facility] Comment on above: Performed By: #### C MP, LIPID, TSH, T7 #### [facility] [address] [place] [address] Dr. Grace Durand MONO # 0.5 103/ul Normal 0.3-0.8 [facility] Comment on above: Performed By: #### C MP, LIPID, TSH, T7 #### [facility] [address] [place] [address] Dr. Grace Durand Monocytes/100 WBC (Bld) 9.9 % Normal 1.7-12.0 [facility] Comment on above: Performed By: #### C MP, LIPID, TSH, T7 #### [facility] [address] [place] [address] Dr. Grace Durand NEUT # 2.9 103/ul Normal 1.4-6.5 [facility] Comment on above: Performed By: #### C MP, LIPID, TSH, T7 #### [facility] [address] [place] [address] Dr. Grace Durand Neutrophils/100 WBC (Bld) 56.4 % Normal 43.0-75.0 [facility] Comment on above: Performed By: #### C MP, LIPID, TSH, T7 #### [facility] [address] [place] [address] Dr. Grace Durand Platelet mean volume (Bld) [Entitic vol] 10.1 fL Normal 9.5-13.5 [facility] Comment on above: Performed By: #### C MP, LIPID, TSH, T7 #### [facility] [address] [place] [address] Dr. Grace Durand PLT 288 103/ul Normal 150-450 [facility] Comment on above: Performed By: #### C MP, LIPID, TSH, T7 #### [facility] [address] [place] [address] Dr. Grace Durand RBC 5.06 106/ul Normal 4.20-5.40 [facility] Comment on above: Performed By: #### C MP, LIPID, TSH, T7 #### [facility] [address] [place] [address] Dr. Grace Durand WBC 5.1 103/ul Normal 4.0-11.0 [facility] Comment on above: Performed By: #### C MP, LIPID, TSH, T7 #### [facility] [address] [place] [address] Dr. Grace Durand FREE THYROXINE INDEX T7on FTI 2.11 Normal 1.30-4.50 [facility] Comment on above: Performed By: #### C MP, LIPID, TSH, T7 #### [facility] [address] [place] [address] Dr. Grace Durand T3U 32.0 % Normal 30.0-39.0 [facility] Comment on above: Performed By: #### C MP, LIPID, TSH, T7 #### [facility] [address] [place] [address] Dr. Grace Durand T4 [Mass/Vol] 6.60 ug/dL Normal 4.80-13.90 [facility] Comment on above: Performed By: #### C MP, LIPID, TSH, T7 #### [facility] [address] [place] [address] Dr. Grace Durand GLYCOHEMOGLOBIN A1Con 2021 ADA RECOMMENDATION SEE BELOW Normal [facility] Comment on above: Result Comment: ADA RECOMMENDED LIMIT 4.0 - 6.0 ADA THERAPEUTIC TARGET < 7.0 ACTION SUGGESTED > 7.0 Performed By: #### C MP, LIPID, TSH, T7 #### [facility] [address] [place] [address] Dr. Grace Durand Glucose [Mass/Vol] 108 mg/dL Normal [facility] Comment on above: Performed By: #### C MP, LIPID, TSH, T7 #### [facility] [address] [place] [address] Dr. Grace Durand HbA1c (Bld) [Mass fraction] 5.4 % Normal 4.5-6.2 [facility] Comment on above: Performed By: #### C MP, LIPID, TSH, T7 #### [facility] [address] [place] [address] Dr. Grace Durand IRONon 05-23-2022 Iron [Mass/Vol] 76.0 ug/dL Normal 50.0-170.0 [facility] Comment on above: Performed By: #### I GWYN #### [facility] [address] [address] [address] Grace Durand LIPID PROFILEon 10-01-2021 CHOL-HDL RATIO NORM SEE BELOW Normal [facility] Comment on above: Result Comment: 3.3 - 4.4 LOW RISK 4.4 - 7.1 AVERAGE RISK 7.1 - 11.0 MODERATE RISK >11.0 HIGH RISK Performed By: #### C MP, LIPID, TSH, T7 #### [facility] [address] [address] [address] Grace Durand Cholesterol [Mass/Vol] 200 mg/dL Normal <=200 [facility] Comment on above: Performed By: #### C MP, LIPID, TSH, T7 #### [facility] [address] [place] [address] Dr. Grace Durand Cholesterol in HDL [Mass/Vol] 61 mg/dL Critically high 40-60 [facility] Comment on above: Performed By: #### C MP, LIPID, TSH, T7 #### [facility] [address] [address] [address] Grace Durand Cholesterol in LDL [Mass/Vol] 109.8 mg/dL Normal [facility] Comment on above: Performed By: #### C MP, LIPID, TSH, T7 #### [facility] [address] [address] [address] Grace Durand Cholesterol.total/Chol esterol in HDL [Mass ratio] 3.3 {ratio} Normal [facility] Comment on above: Performed By: #### C MP, LIPID, TSH, T7 #### [facility] [address] [address] [address] Grace Durand HDL NORMAL > or = 60 mg/dl - LO W CARDIOVASCULAR RISK <40 mg/dl - HIGH CARDIOVASCULAR RISK Normal [facility] Comment on above: Performed By: #### C MP, LIPID, TSH, T7 #### [facility] [address] [place] [address] Dr. Grace Durand LDL CALC NORMAL SEE BELOW Normal [facility] Comment on above: Result Comment: <100 mg/dl OPTIMAL 100 - 129 mg/dl NEAR OR ABOVE OPTIMAL 130 - 159 mg/dl BORDERLINE HIGH 160 - 189 mg/dl HIGH >190 mg/dl VERY HIGH Performed By: #### C MP, LIPID, TSH, T7 #### [facility] [address] [address] [address] Grace Durand Triglyceride [Mass/Vol] 146 mg/dL Normal <=150 [facility] Comment on above: Performed By: #### C MP, LIPID, TSH, T7 #### [facility] [address] [address] [address] Grace Durand VLDL CALC 29.2 mg/dL Normal [facility] Comment on above: Performed By: #### C MP, LIPID, TSH, T7 #### [facility] [address] [place] [address] Dr. Grace Durand PROF 14(COMP METB)on 022 Albumin [Mass/Vol] 3.6 g/dL Normal 3.4-5.0 [facility] Comment on above: Performed By: #### C MP, LIPID, TSH, T7 #### [facility] [address] [address] [address] Grace Durand Albumin/Globulin [Mass ratio] 0.9 {ratio} Normal [facility] Comment on above: Performed By: #### C MP, LIPID, TSH, T7 #### [facility] [address] [place] [address] Dr. Grace Durand ALP [Catalytic activity/Vol] 90 U/L Normal 46-116 [facility] Comment on above: Performed By: #### C MP, LIPID, TSH, T7 #### [facility] [address] [address] [address] Grace Durand ALT [Catalytic activity/Vol] 20 U/L Normal 14-59 [facility] Comment on above: Performed By: #### C MP, LIPID, TSH, T7 #### [facility] [address] [address] [address] Grace Durand Anion gap [Moles/Vol] 11.0 mmol/L Normal Th e [facility] Comment on above: Performed By: #### C MP, LIPID, TSH, T7 #### [facility] [address] [place] [address] Dr. Grace Durand AST [Catalytic activity/Vol] 18 U/L Normal 15-37 [facility] Comment on above: Performed By: #### C MP, LIPID, TSH, T7 #### [facility] [address] [place] [address] Dr. Grace Durand Bilirubin [Mass/Vol] 0.5 mg/dL Normal 0.2-1.0 [facility] Comment on above: Performed By: #### C MP, LIPID, TSH, T7 #### [facility] [address] [place] [address] Dr. Grace Durand Calcium [Mass/Vol] 9.3 mg/dL Normal 8.5-10.1 [facility] Comment on above: Performed By: #### C MP, LIPID, TSH, T7 #### [facility] [address] [place] [address] Dr. Grace Durand Chloride [Moles/Vol] 107 mmol/L Normal 98-107 [facility] Comment on above: Performed By: #### C MP, LIPID, TSH, T7 #### [facility] [address] [place] [address] Dr. Grace Durand CO2 [Moles/Vol] 26.9 mmol/L Normal 21.0-32.0 [facility] Comment on above: Performed By: #### C MP, LIPID, TSH, T7 #### [facility] [address] [place] [address] Dr. Grace Durand Creatinine [Mass/Vol] 0.96 mg/dL Normal 0.55-1.02 [facility] Comment on above: Performed By: #### C MP, LIPID, TSH, T7 #### [facility] [address] [place] [address] Dr. Grace Durand EGFR-AF UKRAINIAN >60 Normal >=60 [facility] Comment on above: Performed By: #### C MP, LIPID, TSH, T7 #### [facility] [address] [address] [address] Grace Durand EGFR-NON AF UKRAINIAN 56 mL/min/1.73m2 Critically low >=60 [facility] Comment on above: Performed By: #### C MP, LIPID, TSH, T7 #### [facility] [address] [address] [address] Grace Durand Globulin (S) [Mass/Vol] 3.9 g/dL Normal [facility] Comment on above: Performed By: #### C MP, LIPID, TSH, T7 #### [facility] [address] [address] [address] Grace Durand Glucose [Mass/Vol] 95 mg/dL Normal 74-106 [facility] Comment on above: Performed By: #### C MP, LIPID, TSH, T7 #### [facility] [address] [address] [address] Grace Durand Potassium [Moles/Vol] 4.9 mmol/L Normal 3.5-5.1 [facility] Comment on above: Performed By: #### C MP, LIPID, TSH, T7 #### [facility] [address] [address] [address] Grace Durand Protein [Mass/Vol] 7.5 g/dL Normal 6.4-8.2 [facility] Comment on above: Performed By: #### C MP, LIPID, TSH, T7 #### [facility] [address] [address] [address] Grace Durand Sodium [Moles/Vol] 140 mmol/L Normal 136-145 [facility] Comment on above: Performed By: #### C MP, LIPID, TSH, T7 #### [facility] [address] [address] [address] Grace Durand Urea nitrogen [Mass/Vol] 15.0 mg/dL Normal 7.0-18.0 [facility] Comment on above: Performed By: #### C MP, LIPID, TSH, T7 #### [facility] [address] [address] [address] Grace Durand Urea nitrogen/Creatinine [Mass ratio] 15.6 mg/mg Normal [facility] Comment on above: Performed By: #### C MP, LIPID, TSH, T7 #### [facility] [address] [address] [address] Grace Durnad TSHon 10-01-2021 TSH 0.265 uIU/mL Critically low 0.358-3.74 0 [facility] Comment on above: Performed By: #### C MP, LIPID, TSH, T7 #### [facility] [address] [address] [address] Grace Durand TSH RANGE SEE BELOW Normal [facility] Comment on above: Result Comment: <0.3 4 UIU/ml HYPERTHYROID 0.34-5.60 UIU/ml EUTHYROID >5.60 UIU/ml HYPOTHYROID Performed By: #### C MP, LIPID, TSH, T7 #### [facility] [address] [address] [address] Grace Durand Physician Referralon 021 Physician Referral [id number]:127 Normal [facility] Formson 03-09-2020 Forms [id number]:127 Normal [facility] Physician Referralon 020 Physician Referral [id number]:127 Normal [facility] Ambulatory Clinical Summaryo n 02-28-2020 Ambulatory Clinical Summary {[id number]}CD: [id number] Normal [facility] Patient Educationon 02-28-20 20 Patient Education Family [...] your urinary (more content not included)... Normal [facility] Urology Office/Clinic Noteon 02-28-2020 Urology Office/Clinic Note [...] History of Present Illness Reviewed UA and SOFTWARE TEST MANAGER paper works. There have been no associated [...] 1. Female bladder prolapse (N81.10: Cystocele, unspecified) SOFTWARE TEST MANAGER is referred by Adela Baker CNP. Pt. had a bladder prolapse reair with mesh in by dr flores at [facility]. Her bladder has dropped again several [...] When Contact Information LENNY HARDY, Juan Solano [address] [place] [address] [place] [address]- [phone] Additional Instructions: Patient Education Urinary Frequency Gabrielle Barahona , personally scribed for Dr. Coppola on [...] Vitamins oral tablet, 1 tab(s), Oral, Daily Reeders 325 mg-5 mg oral tablet, 1 tab(s), Oral, q4hr, PRN, 1 refills, Not taking sertraline 100 mg Tab, 100 mg= 1 tab(s), Oral, Daily (more content not included)... [facility] Comment on above: Result Comment: Elec tronically Signed By: Juan COPPOLA MD\.br\Date and Time Signed: 02/28/20 13:30 EDT\.br\Electronically Co-Signed By: Gabrielle Moore MA\.br\Date and Time Co-Signed: 02/28/20 13:25 EDT SHOULDER RIGHT 10-01-2017 [facility] [place] [address] Yarelis ent Name: GOGO CAREY : 1940Sex: FAge: Race: WhiteMRN: [id number]. Location: 84Patient Status: DVisit #: [id number] Date: 10/01/2017 4:30:00 PMCompleted Date: 10/01/2017 04:36 PMRequesting Provider: GONZALEZ ANSARI Attending Provider: GONZALEZ ANSARI Report Copy To: UNKNOWN, PHYSICIAN Signs & Symptoms: S46.011A Strain of musc/tend the rotator cuff of right shoulder, init U04Yuzconm: AthenaComments: , , , Ordering Franky ANSARI MD , Exam: SHOULDER RIGHTAccession #: [id number] ===SHOULDER RIGHT 10/01/2017 4:36 PM EDT SIGNS AND SYMPTOMS: S46.011A Strain of musc/tend the rotator cuff of right shoulder, init I10 TECHNOLOGIST COMMENTS: History of right shoulder surgery 01/21/2017. Ortho follow up. QUESTION FOR THE RADIOLOGIST: , , , Ordering Franky ANSARI MD , PROTOCOL: AP,Grashey and Axillary views were obtained. COMPARISON: January 21, 2017. FINDINGS: Soft tissues:No acute soft tissue findings. 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 Degenerative changes of the acromioclavicular joint. Joints:No dislocation. IMPRESSION: Unchanged alignment and appearance of right reverse shoulder arthroplasty. No evidence of complication. Approved by:Peyman Jean Baptiste on 10/01/2017 4:45 PM EDT. I, Ron Velez, have reviewed the images and report and concur with these findings. Electronically signed by:Ron Velez. Transcribed by: [email or web address], User Resident: PEYMAN JEAN BAPTISTEElectronically Signed by: RON VELEZ @ 10/02/2017 09:36 AMI personally read this/these film(s) with this resident Normal [facility] Comment on above: Order Comment: , , = ========= , Ordering Franky ANSARI MD , Discharge Summaryon 01-28- 17 Discharge Summary MR#: [id number] Admitted: 01/21/2017 Discharged: 01/23/2017 Date of : 1940 Physician: Gonzalez Ansari M.D. DISCHARGE SUMMARYATTENDING PHYSICIAN: Gonzalez Ansari MD, Orthopedics.ADMISSION DIAGNOSIS: Right shoulder rotator cuff arthropathy.DISCHARGE DIAGNOSIS: Right shoulder rotator cuff arthropathy.HOSPITAL COURSE: The patient was admitted on January 21 for electiveright reverse total shoulder replacement. The procedure was completedwithout complications, the patient was transferred in stable condition tot postoperative care unit. A drain was left [...] with Dr. Ansari in 2 weeks.Electronically Signed by:Gonzalez Ansari M.D. 02/19/2017 06:23 P Gonzalez Ansari M.D. I have reviewed this discharge summary and confirmed the resident'sdocumentation. Please note that there may be additional documentation fromme. Date Dict: 01/28/2017/03:22 P/Gauri Pagan M.D.Date Trans: 01/28/2017 04:03 P/[id number] Normal [facility] CBC W/DIFFon 01-22-2017 Basophils Auto #/vol (Bld) 0.0 % Normal 0.0-2.[address] [facility] Comment on above: Order Comment: No: D o not add to previous draw Performed By: #### 5 0103 ####[facility] [place] [address], [facility] [place] Eosinophils/100 leukocytes 0.0 % Normal 0.0-5.[address] [facility] Comment on above: Order Comment: No: D o not add to previous draw Performed By: #### 5 0103 ####[facility] [facility] Erythrocyte distribution width Auto Ratio (RBC) 13.8 % Normal 11.5-16.[address] [facility] Comment on above: Order Comment: No: D o not add to previous draw Performed By: #### 5 0103 ####[facility] Erythrocytes (RBC) 3.62 mill/mm3 Normal 3.50-5.[address] [facility] Comment on above: Order Comment: No: D o not add to previous draw Performed By: #### 5 0103 ####[facility] [facility].[address] Hematocrit (HCT) 32.1 % Low 36.0-48.[address] [facility] Comment on above: Order Comment: No: D o not add to previous draw Performed By: #### 5 0103 ####[facility] [facility].[address] Hemoglobin mass conc (Bld) 10.4 g/dL Low 12.0-15.[address] [facility] Comment on above: Order Comment: No: D o not add to previous draw Performed By: #### 5 0103 ####[facility] [facility] [place] [address], [facility] [place] Lymphocytes/100 leukocytes 6.4 % Low 20.0-40.[address] [facility] Comment on above: Order Comment: No: D o not add to previous draw Performed By: #### 5 3 ####[facility] [facility] [place] [address], [facility] [place] MCH 28.7 pg Normal 24.0-32.[address] [facility] Comment on above: Order Comment: No: D o not add to previous draw Performed By: #### 5 0103 ####[facility] [facility].[address] MCHC mass conc (RBC) 32.4 g/dL Normal 32.0-36.[address] [facility] Comment on above: Order Comment: No: D o not add to previous draw Performed By: #### 5 0103 ####[facility] MCV 88.6 fL Normal 80.0-100.[address] [facility] Comment on above: Order Comment: No: D o not add to previous draw Performed By: #### 5 0103 ####[facility] [facility] [facility].[address] METHOD Normal [facility] Comment on above: Order Comment: No: D o not add to previous draw Result Comment: Auto mated differential performedNormal RBC Morphology Performed By: #### 5 0103 ####[facility] [facility].[address] MONOS 9.0 % High 2-[address] [facility] Comment on above: Order Comment: No: D o not add to previous draw Performed By: #### 5 0103 ####[facility] [facility].[address] Neutrophils/100 leukocytes 84.6 % High 50-[address] [facility] Comment on above: Order Comment: No: D o not add to previous draw Performed By: #### 5 0103 ####[facility] [facility].[address] PLAT CNT 312 Thou/mm3 Normal 100-[address] [facility] Comment on above: Order Comment: No: D o not add to previous draw Performed By: #### 5 0103 ####[facility] WBC (Leukocytes) 8.0 Thou/mm3 Normal 4.0-10.[address] [facility] Comment on above: Order Comment: No: D o not add to previous draw Performed By: #### 5 0103 ####[facility] Operative Reporton Operative Report MR#: [id number] [facility] Gogo Carey Room #: [id number] Discharge Date: Birthdate: 1940 OPERATIVE REPORTDATE OF SURGERY: 01/21/2017SURGEON: Gonzalez Ansari M.D.PREOPERATIVE DIAGNOSES: Right shoulder glenohumeral end-stage [...] were appliedon the bilateral lower extremities. A [place] catheter was placed. She wasplaced in a [...] glenoid with a slightinferior tilt. The central river pilot hole was drilled and the glenoid [...] in the clinic in 2 weeks.Electronically Signed by:Gonzalez Ansari M.D. 01/26/2017 09:17 P Gonzalez Ansari M.D.Date Dict: 01/22/2017/08:44 A/Gonzalez Ansari M.D.Date Trans: 01/22/2017 05:59 P/mmoDN_[id number] Normal [facility] ARTERIAL BLOOD GAS W/COOXon 01-21-2017 BASE EXCESS 0 mmol/L Normal -2-[address] [facility] Comment on above: Performed By: #### 7 0067, 63520, 86915, 17448 ####[facility] [place] [address], [facility] Bicarbonate (HCO3) 25 mmol/L Normal 23-[address] [facility] Comment on above: Performed By: #### 7 0067, 69829, 86938, 89711 ####[facility] [place] [address], [facility] CO2 37 mmHg Normal 35-[address] [facility] Comment on above: Performed By: #### 7 006, 21919, 90108, 43635 ####[facility] [place] [address], [facility] COHB 2 % High 0-[address] [facility] Comment on above: Performed By: #### 7 66, , 91758, 19953 ####[facility] [place] [address], [facility] METHB 1.0 % Normal 0.0-1.[address] [facility] Comment on above: Performed By: #### 7 66, , 43229, 09423 ####[facility] [place] [address], [facility] O2 saturation 96.4 % Normal 94.0-97.[address] [facility] Comment on above: Performed By: #### 7 66, , 46101, 45027 ####[facility] Oxygen in arterial blood 99 mm[Hg] Normal 75-[address] [facility] Comment on above: Performed By: #### 7 66, , 30534, 27390 ####[facility] [place] [address], [facility] pH of blood 7.43 [pH] Normal 7.35-7.[address] [facility] Comment on above: Performed By: #### 7 66, , 12024, 78777 ####[facility] [place] [address], [facility] THB 11.0 g/dL Low 12.0-15.[address] [facility] Comment on above: Performed By: #### 7 66, 29098, 48490, 39132 ####[facility] [place] [address], [facility] CALCIUM IONIZED CBGLon 01-21 IONIZED CALCIUM 1.22 mmol/L Normal 1.13-1.[address] [facility] Comment on above: Performed By: #### 7 0067, 34731, 16392, 83867 ####[facility] [place], [place] [address] [place] [address] POC GLUCOSE LABon 01-21-2017 Glucose mass conc 92 mg/dL Normal 70-[address] [facility] Comment on above: Performed By: #### 8 5499 ####[facility] [place], [place] [address] [place] [address] PORTABLE SHOULDER RIGHT 2 VW Son 01-21-2017 PORTABLE SHOULDER RIGHT [address] [facility] [address] [place] [id number] Yarelis ent Name: GOGO CAREY : 1940Sex: FAge: Race: WhiteMRN: [id number]. Location: OUTPPatient Status: IVisit #: [id number] Date: 01/21/2017 7:40:00 PMCompleted Date: 01/21/2017 08:41 PMRequesting Provider: GAURI PAGAN Attending Provider: GONZALEZ ANSARI Report Copy To: Signs & Symptoms: Post OPHistory: Patient history not availableComments: Hardware EvaluationExam: PORTABLE SHOULDER RIGHT 2 VWSAccession #: [id number] ===PORTABLE SHOULDER RIGHT 2 VWS 01/21/2017 8:41 [...] arthroplasty in excellent postoperative alignment Electronically signed by:Freddy Mcrae. Transcribed by: [email or web address], User Resident: Electronically Signed by: FREDDY MCRAE @ 01/22/2017 11:45 AM Normal [facility] Comment on above: Order Comment: Hardw are Evaluation POTASSIUM WHOLE BLOOD CBGLon 01-21-2017 Potassium molar conc 3.5 mmol/L Normal 3.4-5.[address] [facility] Comment on above: Performed By: #### 7 0067, 66827, 91486, 55068 ####[facility] SODIUM WHOLE BLOOD CBGLon Sodium 137.0 mmol/L Normal 136.0-146. 0 [facility] Comment on above: Performed By: #### 7 0067, 40651, 40107, 06779 ####[facility] CHEST AND LATERALon 01-16-20 17 CHEST AND LATERAL [facility] [address] [place], [place] [id number] Yarelis ent Name: GOGO CAREY : 1940Sex: FAge: Race: WhiteMRN: [id number]. Location: 84Patient Status: OVisit #: [id number] Date: 01/15/2017 3:05:00 PMCompleted Date: 01/15/2017 03:06 PMRequesting Provider: GONZALEZ ANSARI Attending Provider: GONZALEZ ANSARI Report Copy To: Signs & Symptoms: S46.011A Strain of musc/tend the rotator cuff of right shoulder, init [id number]: AthenaComments: , , Views (X-RAY, CHEST): PA , , , Ordering Franky ANSARI MD , Rendering Franky ANSARI MD , Exam: CHEST AND LATERALAccession #: [id number] ===CHEST AND LATERAL 01/15/2017 3:08 PM EDT SIGNS AND SYMPTOMS: S46.011A Strain of musc/tend the rotator cuff of right shoulder, init I10 TECHNOLOGIST COMMENTS: Patient states lump on anterior portion of upper chest. History of hypertension. QUESTION FOR THE RADIOLOGIST: , , Views (X-RAY, CHEST): PA , , , Ordering Franky ANSARI MD , Rendering Franky ANSARI MD , PROTOCOL: AP(PA) and Lateral views were obtained. COMPARISON: None FINDINGS: There is no pulmonary consolidation, pleural effusion, or pneumothorax. The aorta is tortuous The cardiomediastinal silhouette and pulmonary vasculature are within normal limits. No acute osseous abnormalities. IMPRESSION: No radiographic evidence of acute cardiopulmonary process. Electronically signed by:Evaristo Buchanan. Transcribed by: [email or web address], User Resident: Electronically Signed by: EVARISTO BUCHANAN @ 01/15/2017 03:50 PM Normal [facility] Comment on above: Order Comment: , , V iews (X-RAY, CHEST): PA , , , Ordering Franky ANSARI MD , Rendering Franky ANSARI MD , Vital Signs Date Time Vital Sign Value Performing Clinician Facility 03-19-2024 09:30-0500 Body mass index (BMI) [Ratio] 36.99 kg/m2 Moe Asherton SOFTWARE TEST MANAGER Work Phone: [facility] 03-19-2024 09:30-0500 Body temperature 98.4 [degF] Moe Asherton SOFTWARE TEST MANAGER Work Phone: [facility] 03-19-2024 09:30-0500 Body weight 80.29 kg Moe Dennys SOFTWARE TEST MANAGER Work Phone: [facility] 03-19-2024 09:30-0500 Heart rate 71 /min Moe Asherton SOFTWARE TEST MANAGER Work Phone: [facility] 03-19-2024 09:30-0500 SaO2% (BldA) [Mass fraction] 96 % Moe Dennys SOFTWARE TEST MANAGER Work Phone: [facility] 03-18-2024 19:54-0500 Body mass index (BMI) [Ratio] 36.99 kg/m2 Moe Dennys SOFTWARE TEST MANAGER Work Phone: [facility] 03-18-2024 19:54-0500 Body temperature 98.71 [degF] Moe Dennys SOFTWARE TEST MANAGER Work Phone: [facility] 03-18-2024 19:54-0500 Body weight 80.29 kg Moe Dennys SOFTWARE TEST MANAGER Work Phone: [facility] 03-18-2024 19:54-0500 Diastolic blood pressure 96 mm[Hg] Moe Dennys SOFTWARE TEST MANAGER Work Phone: [facility] 03-18-2024 19:54-0500 Heart rate 84 /min Moe Asherton SOFTWARE TEST MANAGER Work Phone: [facility] 03-18-2024 19:54-0500 SaO2% (BldA) [Mass fraction] 97 % Moe Asherton SOFTWARE TEST MANAGER Work Phone: [facility] 03-18-2024 19:54-0500 Systolic blood pressure 132 mm[Hg] Moe Dennys SOFTWARE TEST MANAGER Work Phone: [facility] 06-30-2023 21:04-0500 Body temperature 97 [degF] SOFTWARE TEST MANAGER-C Adela Olivia Work Phone: [facility] 06-30-2023 21:04-0500 Diastolic blood pressure 72 mm[Hg] SOFTWARE TEST MANAGER-C Adela Olivia Work Phone: [facility] 06-30-2023 21:04-0500 Heart rate 64 /min SOFTWARE TEST MANAGER-C Adela Olivia Work Phone: [facility] 06-30-2023 21:04-0500 Respiratory rate 20 /min SOFTWARE TEST MANAGER-C Adela Olivia Work Phone: [facility] 06-30-2023 21:04-0500 SaO2% (BldA) [Mass fraction] 97 % SOFTWARE TEST MANAGER-C Adela Olivia Work Phone: [facility] 06-30-2023 21:04-0500 Systolic blood pressure 128 mm[Hg] SOFTWARE TEST MANAGER-C Adela Olivia Work Phone: [facility] 06-30-2023 14:21-0500 Body height 152.4 cm SOFTWARE TEST MANAGER-C Adela Olivia Work Phone: [facility] 06-30-2023 14:21-0500 Body weight 89.6 kg SOFTWARE TEST MANAGER-C Adela Olivia Work Phone: [facility] 05-07-2023 18:25-0500 Diastolic blood pressure 94 mm[Hg] SOFTWARE TEST MANAGER-C Adela Olivia Work Phone: [facility] 05-07-2023 18:25-0500 Heart rate 98 /min SOFTWARE TEST MANAGER-C Adela Olivia Work Phone: [facility] 05-07-2023 18:25-0500 Respiratory rate 18 /min SOFTWARE TEST MANAGER-C Adela Olivia Work Phone: [facility] 05-07-2023 18:25-0500 SaO2% (BldA) [Mass fraction] 96 % SOFTWARE TEST MANAGER-C Adela Olivia Work Phone: [facility] 05-07-2023 18:25-0500 Systolic blood pressure 137 mm[Hg] SOFTWARE TEST MANAGER-C Adela Olivia Work Phone: [facility] 05-07-2023 15:54-0500 Body temperature 97.5 [degF] SOFTWARE TEST MANAGER-C Adela Olivia Work Phone: [facility] 05-07-2023 15:51-0500 Body height 154.94 cm SOFTWARE TEST MANAGER-C Adela Olivia Work Phone: [facility] 05-07-2023 15:51-0500 Body weight 77.11 kg SOFTWARE TEST MANAGER-C Adela Olivia Work Phone: [facility] 03-02-2023 19:24-0400 Diastolic blood pressure 78 mm[Hg] SOFTWARE TEST MANAGER-C Adela Olivia Work Phone: [facility] 03-02-2023 19:24-0400 Heart rate 92 /min SOFTWARE TEST MANAGER-C Adela Olivia Work Phone: [facility] 03-02-2023 19:24-0400 Respiratory rate 20 /min SOFTWARE TEST MANAGER-C Adela Olivia Work Phone: [facility] 03-02-2023 19:24-0400 SaO2% (BldA) [Mass fraction] 98 % SOFTWARE TEST MANAGER-C Adela Olivia Work Phone: [facility] 03-02-2023 19:24-0400 Systolic blood pressure 148 mm[Hg] SOFTWARE TEST MANAGER-C Adela Olivia Work Phone: [facility] 03-02-2023 15:36-0400 Body height 152.4 cm SOFTWARE TEST MANAGER-C Adela Olivia Work Phone: [facility] 03-02-2023 15:36-0400 Body weight 78.01 kg SOFTWARE TEST MANAGER-C Adela Olivia Work Phone: [facility] 03-02-2023 15:35-0400 Body temperature 97.9 [degF] SOFTWARE TEST MANAGER-C Adela Olivia Work Phone: [facility] 12-16-2022 23:29-0400 Diastolic blood pressure 90 mm[Hg] SOFTWARE TEST MANAGER-C Adela Olivia Work Phone: [facility] 12-16-2022 23:29-0400 Heart rate 94 /min SOFTWARE TEST MANAGER-C Aedla Olivia Work Phone: [facility] 12-16-2022 23:29-0400 Respiratory rate 19 /min SOFTWARE TEST MANAGER-C Adela Olivia Work Phone: [facility] 12-16-2022 23:29-0400 SaO2% (BldA) [Mass fraction] 97 % SOFTWARE TEST MANAGER-C Adela Olivia Work Phone: [facility] 12-16-2022 23:29-0400 Systolic blood pressure 141 mm[Hg] SOFTWARE TEST MANAGER-C Adela Olivia Work Phone: [facility] 12-16-2022 21:06-0400 Body height 152.4 cm SOFTWARE TEST MANAGER-C Adela Olivia Work Phone: [facility] 12-16-2022 21:06-0400 Body weight 83.6 kg SOFTWARE TEST MANAGER-C Adela Olivia Work Phone: [facility] 12-16-2022 15:24-0400 Body temperature 97.7 [degF] SOFTWARE TEST MANAGER-C Adela Olivia Work Phone: [facility] 10-11-2022 17:37-0400 Body height 154.94 cm SOFTWARE TEST MANAGER-C Adela Olivia Work Phone: [facility] 10-11-2022 17:37-0400 Body temperature 98.4 [degF] SOFTWARE TEST MANAGER-C Adela Olivia Work Phone: [facility] 10-11-2022 17:37-0400 Body weight 87.7 kg SOFTWARE TEST MANAGER-C Adela Olivia Work Phone: [facility] 10-11-2022 17:37-0400 Diastolic blood pressure 70 mm[Hg] SOFTWARE TEST MANAGER-C Adela Olivia Work Phone: [facility] 10-11-2022 17:37-0400 Heart rate 90 /min SOFTWARE TEST MANAGER-C Adela Olivia Work Phone: [facility] 10-11-2022 17:37-0400 Respiratory rate 20 /min SOFTWARE TEST MANAGER-C Adela Olivia Work Phone: [facility] 10-11-2022 17:37-0400 SaO2% (BldA) [Mass fraction] 96 % SOFTWARE TEST MANAGER-C Adela Olivia Work Phone: [facility] 10-11-2022 17:37-0400 Systolic blood pressure 145 mm[Hg] SOFTWARE TEST MANAGER-C Aedla Olivia Work Phone: [facility] 08-18-2022 22:00-0400 Diastolic blood pressure 78 mm[Hg] SOFTWARE TEST MANAGER-C Adela Olivia Work Phone: [facility] 08-18-2022 22:00-0400 Heart rate 68 /min SOFTWARE TEST MANAGER-C Adela Olivia Work Phone: [facility] 08-18-2022 22:00-0400 Respiratory rate 18 /min SOFTWARE TEST MANAGER-C Adela Olivia Work Phone: [facility] 08-18-2022 22:00-0400 SaO2% (BldA) [Mass fraction] 100 % SOFTWARE TEST MANAGER-C Adela Olivia Work Phone: [facility] 08-18-2022 22:00-0400 Systolic blood pressure 124 mm[Hg] SOFTWARE TEST MANAGER-C Adela Olivia Work Phone: [facility] 08-18-2022 21:03-0400 Body height 152.4 cm SOFTWARE TEST MANAGER-C Adela Olivia Work Phone: [facility] 08-18-2022 21:03-0400 Body temperature 98.6 [degF] SOFTWARE TEST MANAGER-C Adela Olivia Work Phone: [facility] 08-18-2022 21:03-0400 Body weight 86.18 kg SOFTWARE TEST MANAGER-C Adela Olivia Work Phone: [facility] Encounters Encounter Date Encounter Type Care Provider Facility Start: 03-19-2024 End: 03-19-2024 ambulatory MOE NOYOLA Not Available Start: 03-19-2024 End: 03-19-2024 Office outpatient visit 25 minutes Moe Noyola SOFTWARE TEST MANAGER Work Phone: [facility] Comment on above: Right hand pain (Petra jose angel Dx); Cat scratch of hand, right, initial encounter; Cellulitis of right hand Start: 03-18-2024 End: 03-18-2024 ambulatory MOE NOYOLA Not Available Start: 03-18-2024 End: 03-18-2024 Office outpatient visit 25 minutes Moe Noyola SOFTWARE TEST MANAGER Work Phone: [facility] Comment on above: Cat scratch of hand, right, initial encounter (Primary Dx); Cellulitis of finger of right hand Start: 11-09-2023 End: 11-09-2023 ambulatory SOFTWARE TEST MANAGER-C Adela Baker Work Phone: [facility] Work Phone: Start: 11-09-2023 End: 11-09-2023 Departed Referred SOFTWARE TEST MANAGER-C Adela Baker Work Phone: [facility] [place] Work Phone: Start: 07-18-2023 End: 07-18-2023 Emergency department patient visit Juan Kay Facility:[facility] Start: 06-30-2023 End: 06-30-2023 Emergency department patient visit SOFTWARE TEST MANAGER-C Adela Baker Work Phone: [facility]-Emergency Room Work Phone: Start: 05-28-2023 End: 05-28-2023 ambulatory SOFTWARE TEST MANAGER-C Adela Baker Work Phone: [facility] Work Phone: Start: 05-28-2023 End: 05-28-2023 Patient encounter procedure SOFTWARE TEST MANAGER-C Adela Baker Work Phone: [facility] [place] Work Phone: Start: 05-07-2023 End: 05-07-2023 Emergency department patient visit SOFTWARE TEST MANAGER-C Adela Baker Work Phone: [facility]-Emergency Room Work Phone: Start: 03-02-2023 End: 03-02-2023 Emergency department patient visit SOFTWARE TEST MANAGER-C Adela Baker Work Phone: [facility]-Emergency Room Work Phone: Start: 12-16-2022 End: 12-17-2022 Emergency department patient visit SOFTWARE TEST MANAGER-C Adela Baker Work Phone: [facility]-Emergency Room Work Phone: Start: 10-11-2022 End: 10-11-2022 Emergency department patient visit SOFTWARE TEST MANAGER-C Adela Baker Work Phone: [facility]-Emergency Room Work Phone: Start: 09-16-2022 End: 09-16-[address] ALISA Smith Facility:[facility] Start: 08-18-2022 End: 08-18-2022 Emergency department patient visit SOFTWARE TEST MANAGER-C Adela Baker Work Phone: [facility]-Emergency Room Work Phone: Start: 08-13-2022 End: 08-13-2022 ambulatory SOFTWARE TEST MANAGER-C Adela Baker Work Phone: [facility] Work Phone: Start: 08-13-2022 End: 08-13-2022 Patient encounter procedure SOFTWARE TEST MANAGER-C Adela Baker Work Phone: [facility]-Sleep Lab Work Phone: Start: 07-20-2022 End: 07-20-2022 ambulatory ADELA BAKER Facility:[facility] Start: 10-01-2021 End: 10-02-2021 ambulatory ADELA BAKER Facility:[facility] Start: 10-01-2017 End: 10-02-2017 Ambulatory GONZALEZ ANSARI Facility:[facility] Start: 01-21-2017 End: 01-23-2017 Evaluation and management of inpatient GONZALEZ ANSARI Facility:[facility] Start: 01-15-2017 End: 01-16-2017 Ambulatory GONZALEZ ANSARI Facility:[facility] Start: 12-11-2016 End: 12-12-2016 Ambulatory DEFAULT PHYSICIAN Facility:[facility] Start: 12-11-2016 End: 12-12-2016 Ambulatory DEFAULT PHYSICIAN Facility:[facility] Procedures Date Procedure Procedure Detail Performing Clinician Start: 03-19-2024 Radex hand minimum 3 views Moe Noyola SOFTWARE TEST MANAGER Work Phone: Start: 06-30-2023 Computed tomography of abdomen and pelvis with contrast SOFTWARE TEST MANAGER-C Adela Baker Work Phone: Start: 03-02-2023 Diagnostic radiograp hy of abdomen SOFTWARE TEST MANAGER-C Adela Baker Work Phone: Start: 12-16-2022 Diagnostic radiograp hy of abdomen SOFTWARE TEST MANAGER-C Adela Baker Work Phone: Start: 01-21-2017 MEASURE OF ARTERIAL SATURATION, PERIPHERAL, PERC APPROACH GONZALEZ ANSARI Start: 01-21-2017 REPLACE OF R SHOULDE R JT WITH REV BL \T\ SOCKT, OPEN APPROACH GONZALEZ ANSARI Plan of Treatment Date Care Activity Detail Author Start: 01-11-2024 Influenza vaccination Influenza Vaccine (#1) [facility] Start: 11-09-2023 Bacteria identified in Urine by Culture [facility] Start: 11-27-2007 Pneumococcal Vaccine: 65+ Years (1 of 1 - PCV) Pneumococcal Vaccine: 65+ Years (1 of 1 - PCV) [facility] Patient Education [facility] Work Phone: Patient referral [facility] Work Phone: Payers Date Payer Category Payer Medicare (Managed Care) FELY KIM [id number] 2022 Self-pay [id number] [address] [facility] [id number] 1959 Medicaid [id number] 1959 Medicare [id number] 1940 Unknown [id number] [id number]. 593 1940 Unknown [id number] 2.0.1.784270.3.579.2. 593 1940 Unknown [id number] .[id number]. 593 1942 Unknown [id number] 2.16840.1.885096.3.579.2. 1259 1940 Unknown [id number] 2.16840.1.939616.3.579.2. 1259 1942 Unknown [id number] 2.16840.1.307015.3.579.2. 1259 Medicare [id number] Medicare Medicare [id number] Unknown Unknown HCAP/HFA/FAP Active [id number] Unknown [id number] [id number]. 531 Unknown [id number] 2.16.840.1.910707.3.579.2. 531 Unknown [id number] 2.16.840.1.963244.3.579.2. 531 Unknown [id number] 2.16.840.1.241162.3.579.2. 531 Unknown [id number] 2.16.840.1.255671.3.579.2. 531 Unknown [id number] 2.16.840.1.659998.3.579.2. 531 Unknown [id number] 2.16.840.1.758015.3.579.2. 531 Social History Date Type Detail Facility Start: 02-01-2017 Tobacco smoking status [facility] Ex-smoker (finding) [facility] Start: 1940 Sex Assigned At Female F [facility] Start: 08-18-2022 End: 07-18-2023 Tobacco smoking status [facility] Never smoked tobacco (finding) [facility] Tobacco smoking status [facility] Tobacco smoking consumption unknown [facility] Start: 1940 Sex assigned at Not [facility] Gender identity Not [facility] History of Present illness Narrative 03-19-2024 Moe Noyola NP - 03/19/2024 9:25 AM EST Note Date & Type Note Facility 03-19-2024 History of Presen t illness Narrative HPI: Historian of HPI: patient Gogo Carey is a 83 y.o. female who presents today to the Urgent Care with the following complaints and denials which have been present for 3 day(s) pt states she was scratched by a cat. C/O Denies Symptom Comments [] [x] Lesion [] [x] Rash [] [x] Lump [] [x] Bump [] [x] Depression [] [x] abscess [x] [] cellulitis [x] [] itching [] [x] pain [x] [] burning [] [x] Sensation of insects crawling Additional Comments: pt has not taken any OTC medications Examination General Examination: General Examination: alert, orients, normal affect, well appearing, in no acute distress, well developed, well nourished Head: normocephalic, atraumatic Eyes: sclera non-icteric Neck/Thyroid: trachea midline Skin: no rash Heart: no murmurs, regular rate and rhythm, S1, S2 normal Lungs: clear to auscultation bilaterally MSK: erythema, tenderness, and swelling over 1st and 2nd metacarpals. Limited rom due to pain. Extremities: no edema, no cyanosis. Cap refill intact to fingers of right hand Neurologic: nonfocal. Sensation intact to fingers or right hand Psych: tearful, alert, oriented, cognitive function intact, cooperative with exam 1. 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 Toradol given in office with reported relief of pain. - XR hand 3+ views right - ketorolac (Toradol) injection 60 mg - predniSONE (Deltasone) 10 MG tablet; Day 1-2 take 3 tablets, Day 3-4 take 2 tablets, Day 5-6 take 1 tablet PO as directed Dispense: 12 tablet; Refill: 0 2. Cat scratch of hand, right, initial encounter Discussed. See above/below. 3. Cellulitis of right hand Diagnosis and treatment reviewed. Start augmentin (ordered when patient seen yesterday). Rest and elevate. Must follow-up with PCP Friday. Immediate eval for new or worsening symptoms. - ketorolac (Toradol) injection 60 mg documented in this encounter [facility] History of Present illness Narrative 03-18-2024 Moe Noyola NP - 03/18/2024 7:40 PM EST Note Date & Type Note Facility 03-18-2024 History of Presen t illness Narrative HPI: Historian of HPI: patient Gogo Carey is a 83 y.o. female who presents today to the Urgent Care with the following complaints and denials which have been present for 2 day(s) pt states she was scratched by a cat. C/O Denies Symptom Comments [] [x] Lesion [] [x] Rash [] [x] Lump [] [x] Bump [] [x] Depression [] [x] abscess [x] [] cellulitis [x] [] itching [] [x] pain [x] [] burning [] [x] Sensation of insects crawling Additional Comments: pt has not taken any OTC medications ROS: A complete system ROS was performed and negative aside from the pertinent positives noted in the HPI and PE. Examination General Examination: General Examination: alert, orients, normal affect, well appearing, in no acute distress, well developed, well nourished Head: normocephalic, atraumatic Eyes: sclera non-icteric Neck/Thyroid: trachea midline Skin: no rash Heart: no murmurs, regular rate and rhythm, S1, S2 normal Lungs: clear to auscultation bilaterally MSK: erythema, tenderness, and swelling over 1st and 2nd metacarpals. Limited rom due to pain. Extremities: no edema, no cyanosis. Cap refill intact to fingers of right hand Neurologic: nonfocal. Sensation intact to fingers or right hand Psych: tearful, alert, oriented, cognitive function intact, cooperative with exam 1. Cat scratch of hand, right, initial encounter (Primary) Discussed. 2. Cellulitis of finger of right hand Diagnosis and treatment discussed. Rest, ice, and elevate. Must follow-up with PCP or UC in 24 to 48 hours. To ER for new or worsening symptoms. - amoxicillin-clavulanate (Augmentin) 875-125 MG tablet; Take 1 tablet (875 mg) by mouth in the morning and 1 tablet (875 mg) before bedtime. Do all this for 10 days. Dispense: 20 tablet; Refill: 0 documented in this encounter [facility] Discharge instructions 06-30-2023 Note Date & Type Note Facility 06-30-2023 Hospital Discharg e instructions Additional Instructions Please return to emergency department for any new or worrisome symptoms including any return of abdominal pain, vomiting, fever, not not passing gas. Follow-up with your family physician within the next 3 to 5 days. Take stool softeners as directed. [facility] Work Phone: Evaluation note Note Date & Type Note Facility Evaluation note No assessment information availa ble [facility] Work Phone: Evaluation note Note Date & Type Note Facility Evaluation note Diagnosis Cat scratch of hand, right, initial encounter- Primary Cellulitis of finger of right hand documented in this encounter [facility] Evaluation note Note Date & Type Note Facility Evaluation note Diagnosis Right hand pain- Primary Pain in soft tissues of limb Cat scratch of hand, right, initial encounter Cellulitis of right hand documented in this encounter [facility] Hospital Discharge instructions Note Date & Type [...] the PCP for reevaluation 5 7 days. [facility] Work Phone: Hospital Discharge instructions Note Date & Type Note Facility Hospital Discharge instructions Additional Instructions We gave you a dose of steroids to help with itching. Please try the Atarax for the itching as well as well as for anxiety. Additionally please use MiraLAX daily for your constipation. Please continue following closely with your primary care provider as well as your avid editor. Please return to the emergency department if you develop any worsening or concerning symptoms. [facility] Work Phone: Summary Purpose Family History Relationship Condition Age at Onset Recorded Date/T [...] Unknown mother Malignant neoplasm Unknown Advance Directives Advance Directive Response Recorded Date/ Time Advance [...] section and content) DATE CREATED AUTHOR 10/29/2017 [facility] DATE CREATED AUTHOR AUTHOR'S ORGANIZ ATION 12/07/[address] [facility] DATE CREATED AUTHOR AUTHOR'S ORGANIZ ATION 09/19/2022 [facility] DATE CREATED AUTHOR AUTHOR'S ORGANIZ ATION 11/13/2023 [facility] DATE CREATED AUTHOR AUTHOR'S ORGANIZ ATION 03/24/2024 [facility] EPIC Care Teams (unrecognized sec tion and content) Team Status: Active Member Role Status Dates Adela Baker SOFTWARE TEST MANAGER-C Primary Care Provider Active Team Status: Inactive Member Role Status Dates Adela Baker NP-C Primary Care Provider, Referr ing Provider Active Lukas Fried MD Attending Provider Active Team Status: Inactive Member Role Status Dates Adela Baker NP-C Primary Care Provider Active Jay Carvajal DO Emergency Provider Active Team Status: Inactive Member Role Status Dates Adela Baker NP-C Primary Care Provider Active Juan Henao DO Emergency Provider Active Team Status: Inactive Member Role Status Dates Adela Baker NP-C Primary Care Provider Active Camille Dennison DO Emergency Provider Active Team Status: Inactive Member Role Status Dates Adela Baker NP-C Primary Care Provider Active Start: March 02, 2023 End: March 02, 2023 Juan Henao DO Emergency Provider Active St art: March 02, 2023 End: March 02, 2023 Team Status: Inactive Member Role Status Dates Adela Baker NP-C Primary Care Provider Active Start: May 07, 2023 End: May 07, 2023 Camille Dennison DO Emergency Provider Active Start: May 07, 2023 End: May 07, 2023 Team Status: Inactive Member Role Status Dates Adela Baker NP-C Primary Care Provider Active Start: May 28, 2023 End: May 28, 2023 Carine Montoya MD Attending Provider Active Start: May 28, 2023 End: May 28, 2023 Team Status: Inactive Member Role Status Dates Adela Baker NP-C Primary Care Provider Active Start: June 30, 2023 End: June 30, 2023 Ashleigh Jackson MD Emergency Provider Active Start: June 30, 2023 End: June 30, 2023 Team Status: Inactive Member Role Status Dates Adela Baker NP-C Primary Care Pa meme, Attending Provider Active Start: November 09, 2023 End: November 09, 2023 Goals (unrecognized section and content) Goals [...] BE BASED ON THE PRIMARY CLINICAL RECORDS. [employer] provides no warranty or guarantee of the accuracy or completeness of information in this document.
--- NOTE | 2024-07-11 13:29 | XR_ITS ---
The [place] [id number] Patient Name: GOGO CAREY MRN: [id number] date: 1940 Sex: F Assigned Patient Location: ER Current Patient Location: ER Accession/Order Number: [id number] Exam Date: 07/11/2024 14:11 Report Date: 07/11/2024 14:12 At the request of: ALISA MCDERMOTT Procedure: XR chest 1V Single view chest: CLINICAL HISTORY: cough, shortness of breath productive cough for 3 weeks. COMPARISON: Chest 04/25/2019 FINDINGS: The heart is normal in size. The lungs are clear. The pulmonary vasculature is normal. Mediastinum and hilar regions are unremarkable. No pleural effusions are seen. Visualized bones are intact. XR/XR chest 1V IMPRESSION: NEGATIVE CHEST. Impression dictated by: Brady Hanson Jr., D.O.07/11/2024 2:12 PM Dictation Location: [facility] Electronically authenticated by: [id number] Y Date: 07/11/2024 14:12
--- NOTE | 2024-07-11 14:22 | ED.GENADUL1 ---
HPI HPI - General Adult General Chief complaint: Upper Respiratory Infection Stated complaint: COUGH Time Seen by Provider: 07/11/24 13:07 Source: patient Mode of arrival: Wheelchair History of Present Illness HPI narrative: cc = cough Patient complains that over the last 3 weeks or so she has had persistent tickle or sensation in her upper chest that caused her to cough. It has become productive over the last couple of days, with whitish sputum production. She denies any abdominal pain. No reflux disease. No prior history of reflux. She says that she is a non-smoker, never smoked I have never used a drug of my life . No recent upper respiratory or lower respiratory symptoms prior to this cough. No GI or symptoms Related Data Home Medications ?Medication ?Instructions ?Recorded ?Confirmed amlodipine 5 mg tablet 5 mg PO DAILY 12/13/22 07/11/24 simvastatin 20 mg tablet 20 mg PO DAILY 12/13/22 07/11/24 citalopram 10 mg tablet mg 07/11/24 hydroxyzine pamoate 25 mg capsule mg 07/11/24 levothyroxine 112 mcg tablet mcg 07/11/24 Previous Rx's ?Medication ?Instructions ?Recorded bisacodyl 5 mg tablet,delayed 5 mg PO DAILY #10 tabs 12/02/23 release (Dulcolax (bisacodyl)) qxkkgpkwdcmkbcz-rnumglfywkupfli-EV 10 ml PO Q8H PRN cough #118 mL 07/11/24 2 mg-30 mg-10 mg/5 mL oral syrup (Bromfed DM) prednisone 20 mg tablet 40 mg (2 x 20 mg) PO DAILY 5 days 07/11/24 #10 tabs Allergies Allergy/AdvReac Type Severity Reaction Status Date / Time No Known Drug Allergies Allergy Verified 12/02/23 14:40 Opioid HPI Opioid Management Most Recent Opioid Data: No Data to Display PFSH PFSH Social History Smoking status: Never smoker Little interest or pleasure in doing things: not at all Feeling down, depressed, or hopeless: not at all Exam Narrative Exam Narrative: Nurses notes and vital signs reviewed and patient is not hypoxic. afebrile General: Well-appearing and in no apparent distress. Skin: Warm, dry, no pallor noted. No rash. Head: Normocephalic, atraumatic. Neck: Supple, non-tender. Eye: Pupils are equal, round and EOMI. No scleral icterus. Ears, Nose, Mouth, and Throat: Oral mucosa is moist Cardiovascular: Regular Rate and Rhythm without murmur, gallop or rub. Respiratory: No accessory muscle use or respiratory distress. Lungs are clear to auscultation, no wheezing, rales or rhonchi Musculoskeletal: normal ROM, no calf or popliteal tenderness, no lower extremity edema/swelling GI: Abdomen is soft, non-distended. Normal bowel sounds. No tenderness to palpation. No rebound, guarding, or rigidity noted. Neurological: A&O x4. No cranial nerve dysfunction observed. No truncal ataxia. Moves all extremities. Sensation intact. Psychiatric: Cooperative and interactive. Normal mood and affect. Constitutional Vital Signs, click to edit/add: Last Vital Signs Temp 98.0 F 07/11/24 13:10 Pulse 77 07/11/24 13:10 Resp 20 07/11/24 13:10 BP 111/78 07/11/24 13:10 Pulse Ox 99 07/11/24 13:10 Course Vital Signs Vital signs: Vital Signs Temperature 98.0 F 07/11/24 13:10 Pulse Rate 77 07/11/24 13:10 Respiratory Rate 20 07/11/24 13:10 Blood Pressure 111/78 07/11/24 13:10 Pulse Oximetry 99 07/11/24 13:10 Temperature 98.0 F 07/11/24 13:10 Pulse Rate 77 07/11/24 13:10 Respiratory Rate 20 07/11/24 13:10 Blood Pressure 111/78 07/11/24 13:10 Pulse Oximetry 99 07/11/24 13:10 Medical Decision Making [facility] Narrative Medical decision making narrative: Exam is unremarkable. Every once while she forces her self to cough and then brings up some white sputum. Chest x-ray was obtained and negative, per radiologist. Patient may be suffering from some bronchitis so I discharged her home with prescriptions for short course of steroid and some Bromfed syrup. Imaging Data Chest x-ray: Radiologist's impression: ITS Impressions Chest X-Ray 07/11/24 13:29 IMPRESSION: NEGATIVE CHEST. Impression dictated by: Brady Hanson Jr., D.O.07/11/2024 2:12 PM Dictation Location: [facility] Electronically authenticated by: [id number] Y Date: 07/11/2024 14:12 Discharge Plan Discharge Chief Complaint: Upper Respiratory Infection Clinical Impression: Bronchitis Patient Disposition: Home, Self-Care Time of Disposition Decision: 14:24 Prescriptions / Home Meds: New exjykfwngduinxf-mzcubefld-YM [Bromfed DM] 2-30-10 mg/5 mL syrup 10 ml PO Q8H PRN (Reason: cough) Qty: 118 0RF prednisone 20 mg tablet 40 mg PO DAILY 5 Days Qty: 10 0RF No Action bisacodyl [Dulcolax (bisacodyl)] 5 mg tablet,delayed release (DR/EC) 5 mg PO DAILY Qty: 10 0RF amlodipine 5 mg tablet 5 mg PO DAILY simvastatin 20 mg tablet 20 mg PO DAILY citalopram 10 mg tablet levothyroxine 112 mcg tablet hydroxyzine pamoate 25 mg capsule Print Language: Lithuanian Instructions: Acute Bronchitis (ED) Referrals: CATERINA BAKER [Primary Care Provider] - 1 week
== END 2024-07-11 14:52 | disposition home or self-care (01) ==
PROVIDERS: Emergency Provider Emergency Medicine; PCP Nurse Practitioner Family
DX: J40 Bronchitis, not specified as acute or chronic (principal)
CPT/HCPCS: 71045; 99283

== ENCOUNTER 2024-11-23 16:57 | Emergency (ER) | payer MEDICARE, MEDICAID, SELFPAY ==
[2024-11-23 17:03] VITALS: BP 149/77; PULSE 78; TEMP 37; O2SAT 95
--- NOTE | 2024-11-23 17:08 | ED_ITS ---
HPI HPI - General Adult General Chief complaint: Extremity Problem, Nontraumatic Stated complaint: SOMETHING POPPED ON LEFT SIDE BY HIP BRUISED Time Seen by Provider: 11/23/24 17:04 Source: patient Mode of arrival: Wheelchair History of Present Illness HPI narrative: 83-year-old female presents with chief complaint of left hip and leg pain. 3 to 4 days ago she was walking through her house felt a pop and now has developed a bruise to her left hip. No injury or trauma. She denies taking any blood thinning medications. She has had increased urinary frequency. She has not seen her primary care physician in some time. She states she has a history of hypertension and hyperlipidemia. Patient did ambulate here into the emergency room. She has a large bruise noted to the left lateral leg. Related Data Home Medications ?Medication ?Instructions ?Recorded ?Confirmed amlodipine 5 mg tablet 5 mg PO DAILY 12/13/2207/11 simvastatin 20 mg tablet 20 mg PO DAILY 12/13/2207/06 citalopram 10 mg tablet mg 07/11/24 hydroxyzine pamoate 25 mg capsule mg 07/11/24 levothyroxine 112 mcg tablet mcg 07/11/24 Previous Rx's ?Medication ?Instructions ?Recorded bisacodyl 5 mg tablet,delayed 5 mg PO DAILY #10 tabs 0 12/02/23 release (Dulcolax (bisacodyl)) bjpyyncqzdvhlcn-eyirmupernzdflw-FX 10 ml PO Q8H PRN co ugh #118 mL 07/11/24 2 mg-30 mg-10 mg/5 mL oral syrup (Bromfed DM) prednisone 20 mg tablet 40 mg (2 x 20 mg) PO DAILY 5 days 07/11/24 #10 tabs cephalexin 500 mg capsule 500 mg PO BID 10 days #20 ca ps 11/23/24 Allergies Allergy/AdvReac Type Severity Reaction Status Date / Time No Known Drug Allergies Allergy Verified 12/02/23 14:40 Review of Systems ROS Status of ROS 10 or more systems reviewed and unremark able except as noted in history and below [facility] Social History Smoking status: Never smoker Little interest or pleasure in doing things: not at all Feeling down, depressed, or hopeless: not at all Exam Narrative Exam Narrative: All Systems are negative except as noted/marked.All systems reviewed and otherwise negative Nurses note and vital signs reviewed and patient is not hypoxic. General: The patient appears well and in no apparent distress. Patient is resting comfortably on cart. Skin: Warm, dry, no pallor noted. There is no rash noted. Head: Normocephalic, atraumatic Eye: Normal conjunctiva, no drainage, EOMI. PERRL Ears, Nose, Mouth, and Throat: oral mucosa is moist. Nares patent. Mouth without vesicles. Ear canals patent. Tm's without Erythema Cardiovascular: Regular Rate and Rhythm Respiratory: Patient is in no distress, no accessory muscle use, lungs are clear to auscultation, no wheezing, rales or rhonchi Back: non-tender, no CVA tenderness bilaterally to percussion. GI: Normal bowel sounds, no tenderness to palpation, no masses appreciated. No rebound, guarding, or rigidity noted. Musculoskeletal: 6 area of ecchymosis to left lateral thigh, full range of motion of the leg, able to bear weight, patient has no evidence of calf tenderness, no pitting edema, symmetrical pulses noted bilaterally Neurological: A&O x4, normal speech Psychiatric: Cooperative Constitutional Vital Signs, click to edit/add: Last Vital Signs Temp 98.6 F 11/23/24 17:03 Pulse 78 11/23/24 17:03 Resp 20 11/23/24 17:03 BP 149/77 H 11/23/24 17:03 Pulse Ox 95 11/23/24 17:03 O2 Del Method Room Air 11/23/24 17:03 Course Vital Signs Vital signs: Vital Signs Temperature 98.6 F 11/23/24 17:03 Pulse Rate 78 11/23/24 17:03 Respiratory Rate 20 11/23/24 17:03 Blood Pressure 149/77 H 11/23/24 17:03 Pulse Oximetry 95 11/23/24 17:03 Oxygen Delivery Method Room Air 11/23/24 17:03 Temperature 98.6 F 11/23/24 17:03 Pulse Rate 78 11/23/24 17:03 Respiratory Rate 20 11/23/24 17:03 Blood Pressure 149/77 H 11/23/24 17:03 Pulse Oximetry 95 11/23/24 17:03 Oxygen Delivery Method Room Air 11/23/24 17:03 Medical Decision Making Differential Diagnosis Differential Diagnosis: uti, hip pain, eccymosis Medical Records Medical records reviewed: Yes I reviewed the patient's medical records Medical records narrative: 83-year-old female presents with chief complaint of left hip and leg pain. 3 to 4 days ago she was walking through her house felt a pop and now has developed a bruise to her left hip. No injury or trauma. She denies taking any blood thinning medications. She has had increased urinary frequency. She has not seen her primary care physician in some time. She states she has a history of hypertension and hyperlipidemia. Patient did ambulate here into the emergency room. She has a large bruise noted to the left lateral leg. Patient had presented with chief complaint of bruising to the left lateral x- rays showed no acute deformity or fractures. She does have arthritic changes noted. Patient also stated she had been having increased urinary symptoms. She is positive for nitrates in her urine. Patient will be discharged home with prescription of Keflex for a UTI. Patient is encouraged to follow-up with a primary care physician as she has not done so. She states she has not had any blood work or anything recently. She shows no evidence of confusion here today. She is alert and oriented. She does live at home alone. She is to follow-up with her primary care physician in the next several days. She had asked that we do wellness labs on her but no labs were performed at this point in time she showed no signs of symptoms or need for labs today. I explained she needs to follow-up with her primary care physician. Or ecchymosis or bruising on her body. That is not explainable. She has had no bleeding or any other abnormalities noted. Patient agrees to follow-up with primary care physician. Lab Data Lab results reviewed: Yes I reviewed the patient's lab results Labs: Lab Results 11/23/24 Range/Units 17:50 Urine Color Lt yellow (YELLOW) Urine Clarity Cloudy A (CLEAR) Urine pH 6.0 (5.0-9.0) Ur Specific [place] 1.025 (1.005-1.025) Urine Protein Negative (NEG/TRACE) mg/dL Urine Glucose (UA) Negative (NEGATIVE) mg/dL Urine Ketones Negative (NEGATIVE) mg/dL Urine Occult Blood Trace-intact A (NEGATIVE) Urine Nitrite Positive A (NEGATIVE) Urine Bilirubin Negative (NEGATIVE) Urine Urobilinogen 0.2 (0.2-1.0) EU/dL Ur Leukocyte Esterase Moderate A (NEGATIVE) Urine RBC 2-5 A (0-2) #/HPF Urine WBC >100 A (NONE SEEN) #/HPF Ur Squamous Epith Cells Many A (NONE/RARE) #/LPF Urine Crystals None seen (None Seen) #/HPF Urine Bacteria Large A (NONE SEEN) #/HPF Urine Casts None seen (NONE SEEN) #/LPF Urine Mucus Trace A (NONE SEEN) Ur Culture Indicated? Yes-[facility] [place] Imaging Data hip: Radiologist's impression: ITS Impressions Femur X-Ray 11/23/24 17:17 IMPRESSION: No fracture or dislocation. Uncomplicated total left knee arthroplasty hardware is noted. Impression dictated by: Shamir Worrell M.D. 11/23/2024 6:09 PM Dictation Location: [employer] Electronically authenticated by: [id number] Y Date: 11/23/2024 18:09 Hip/Pelvis X-Ray 11/23/24 17:17 IMPRESSION: No fracture or dislocation. Degenerative changes are noted as above. Impression dictated by: Shamir Worrell M.D. 11/23/2024 6:10 PM Dictation Location: [employer] Electronically authenticated by: [id number] Y Date: 11/23/2024 18:10 Discharge Plan Discharge Chief Complaint: Extremity Problem, Nontraumatic Clinical Impression: UTI (urinary tract infection), Hip pain, Bruise Patient Disposition: Home, Self-Care Time of Disposition Decision: 18:20 Condition: Good Prescriptions / Home Meds: New cephalexin 500 mg capsule 500 mg PO BID 10 Days Qty: 20 0RF No Action bisacodyl [Dulcolax (bisacodyl)] 5 mg tablet,delayed release (DR/EC) 5 mg PO DAILY Qty: 10 0RF amlodipine 5 mg tablet 5 mg PO DAILY simvastatin 20 mg tablet 20 mg PO DAILY citalopram 10 mg tablet levothyroxine 112 mcg tablet hydroxyzine pamoate 25 mg capsule qreyltjdsjvimom-hfqnqhuqo-NL [Bromfed DM] 2-30-10 mg/5 mL syrup 10 ml PO Q8H PRN (Reason: cough) Qty: 118 0RF prednisone 20 mg tablet 40 mg PO DAILY 5 Days Qty: 10 0RF Print Language: Ghanaian Instructions: Urinary Tract Infection in Older Adults (ED), Bone Bruise (ED) Additional Instructions: follow up with primary care in next several days Referrals: ACTERINA BAKER [Primary Care Provider, Family Practice] - 11/24/24
--- NOTE | 2024-11-23 17:17 | XR_ITS ---
The [address] [address] Patient Name: GOGO CAREY MRN: [id number] date: 1940 Sex: F Assigned Patient Location: ER Current Patient Location: ED.MAIN Accession/Order Number: [id number] Exam Date: 11/23/2024 18:09 Report Date: 11/23/2024 18:10 At the request of: YESY DEL RIO Procedure: XR hip LT 2V w/ pelvis XR hip LT 2V w/ pelvis 11/23/2024 5:45 PM SIGNS AND SYMPTOMS: Fall, left hip pain PROTOCOL: Frontal radiograph the pelvis with frontal and frog-leg views of the left hip COMPARISON: None FINDINGS: The bony ring of the pelvis is intact. There is no fracture or dislocation. Degenerative changes are noted in the lumbar spine and sacroiliac joints. Enthesophyte formation is noted along the iliac wings and along the greater trochanters. XR/XR hip LT 2V w/ pelvis IMPRESSION: No fracture or dislocation. Degenerative changes are noted as above. Impression dictated by: Shamir Worrell M.D. 11/23/2024 6:10 PM Dictation Location: [place] [address] Electronically authenticated by: [id number] Y Date: 11/23/2024 18:10
--- NOTE | 2024-11-23 17:17 | XR_ITS ---
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 There is no fracture or hardware complication. Degenerative changes are noted in the left hip with enthesophyte formation along the greater trochanter. XR/XR femur LT 2V IMPRESSION: No fracture or dislocation. Uncomplicated total left knee arthroplasty hardware is noted. Impression dictated by: Shamir Worrell M.D. 11/23/2024 6:09 PM Dictation Location: [place] [address] Electronically authenticated by: [id number] Y Date: 11/23/2024 18:09
--- OUTSIDE RECORDS SUMMARY | 2024-11-23 17:45 | XMS_ITS | CCD ---
Author Organization [facility] Providers Care Wax Pot Tender Name Role Phone PHYSICIAN, DEFAULT Unavailable Unavailable PHYSICIAN, DEFAULT Unavailable Unavailable PHYSICIAN, DEFAULT Unavailable Unavailable PHYSICIAN, DEFAULT Unavailable Unavailable RAMINENI, GONZALEZ K Unavailable Unavailable RAMINENI, GONZALEZ K Unavailable Unavailable UNKNOWN, PHYSICIAN Unavailable Unavailable UNKNOWN, PHYSICIAN Unavailable Unavailable RAMINENI, GONZALEZ K Unavailable Unavailable RAMINENI, GONZALEZ K Unavailable Unavailable UNKNOWN, PHYSICIAN Unavailable Unavailable UNKNOWN, PHYSICIAN Unavailable Unavailable DE Unavailable Unavailable RAMINENI, GONZALEZ K Unavailable Unavailable RAMINENI, GONZALEZ K Unavailable Unavailable RAMINENI, GONZALEZ K Unavailable Unavailable UNKNOWN, PHYSICIAN Unavailable Unavailable UNKNOWN, PHYSICIAN Unavailable Unavailable LAURA Baker Adela Belkys Primary Care Provider LAURA Baker Adela Belkys Referring Provider MD Lukas Fried Attending Provider [phone] DO Jay Carvajal Emergency Provider ADELA Navarrete [...] Unavailable LAURA Baker Primary Care Provider [phone] DO Juan Henao Emergency Provider [phone] LAURA Baker Primary Care Provider DO Jay Carvajal Emergency Provider DO Juan Bruno Emergency Provider LAURA Baker Adela Belkys Primary Care Provider DO Juan Henao Emergency Provider DO Camille Dennison Emergency Provider MD Carine Montoya Attending Provider LAURA Baker Adela Belkys Primary Care Provider MD Ashleigh Jackson Emergency Provider [phone] LAURA Baker Adela Belkys Primary Care Provider LAURA Baker Adela Belkys Attending Provider [phone] Olivia Adela Belkys Primary Care Unavailable Juan [...] Propensity to adverse reactions (disorder) 7 [facility] (1 source) No Known Allergies; Translations: [No Known Allergies] Propensity to adverse reactions (disorder) [facility] (10 sources) oxyCODONE; Translations: [oxycodone] Drug Allergy 0 Hallucinating [facility] (1 source) Acetaminophen / oxyCODONE Drug Allergy [facility] Medications Current Medications Medication Drug Class(es) [...] December 16, 2022 12:00am polyethylene glycol 3350 28425 mg powder for oral solution (20 sources) [...] 1:00am Start: 06-30-[address] 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 THERAPY] Onset: 09-18-2022 Episodic Other [...] MARY OLMSTEAD MD at 19-Mar-2024 10:24:34 AM [facility] Normal Not Available XR Hand - [...] MARY OLMSTEAD MD at 19-Mar-2024 10:24:34 AM [facility] IMAGING Rose Mary Olmstead MD - [...] MARY OLMSTEAD MD at 19-Mar-2024 10:24:34 AM [facility] Healthcare Radiology Study observation (narrative) [facility] Healthcare XR Hand - right 3 ViewsOrder ed By: Rose Mary Olmstead on 03-19-2024 [facility] Healthcare Work Phone: Bacteria [Presence] in Urine by AutomatedOrdered By: Adela Baker on 11-09-2023 Bacteria Auto Ql (U) 4+ [HPF] High None Seen [facility] Bilirubin Test strip Ql (U)O rdered By: Adela Baker on 11-09-2023 Bilirubin Ql (U) Negative Negative [facility] Calcium oxalate crystals [Pr esence] in Urine by Computer assisted methodOrdered By: Adela Baker on 11-09-2023 Calcium oxalate crystals Computer assisted Ql (U) 3+ [HPF] [facility] Color of Urine by AutoOrdere d By: Adela Baker on 11-09-2023 Color (U) Light-yellow Normal Yellow [facility] Comment on above: Order Comment: Name Collection Type:: Collection Method Unknown Performed By: #### C UU, ADDONUAPLUS #### [facility] [address] [place] [id number] [place] Crystals.amorphous [Presence ] in Urine by Computer assisted methodOrdered By: Adela Baker on 11-09-2023 Crystals.amorphous Computer assisted Ql (U) Rare [HPF] [facility] Dipstick and Microscopicon 0 11-09-2023 Amorphous Crystal,Urine Rare Normal [facility] Comment on above: Order Comment: Name Collection Type:: Collection Method Unknown Performed By: #### C UU, ADDONUAPLUS #### [facility] [address] [place] [id number] [place] Bacteria,Urine 4+ High None Seen [facility] Comment on above: Order Comment: Name Collection Type:: Collection Method Unknown Performed By: #### C UU, ADDONUAPLUS #### [facility] [address] [place] [address] [place] Bilirubin,Urine Negative Normal Negative [facility] Comment on above: Order Comment: Name Collection Type:: Collection Method Unknown Performed By: #### C UU, ADDONUAPLUS #### [facility] [address] [place] [address] [place] Calcium Oxalate Crystals,Urine 3+ Normal [facility] Comment on above: Order Comment: Name Collection Type:: Collection Method Unknown Performed By: #### C UU, ADDONUAPLUS #### [facility] [address] [place] [id number] [place] Glucose Ql (U) Normal Normal Normal [facility] Comment on above: Order Comment: Name Collection Type:: Collection Method Unknown Performed By: #### C UU, ADDONUAPLUS #### [place] [address] [place] Hyaline Casts,Urine 0-8 Normal 0-8 [facility] Comment on above: Order Comment: Name Collection Type:: Collection Method Unknown Performed By: #### C UU, ADDONUAPLUS #### [address] Mucus,Urine 1+ Critically abnormal [facility] Comment on above: Order Comment: Name Collection Type:: Collection Method Unknown Result Comment: PERF ORMED BY: [place] [address] PATHOLOGIST SEXTON HELPER FELICITAS BRINK M.D. Performed By: #### C UU, ADDONUAPLUS #### [address] Nitrite,Urine Negative Normal Negative [facility] Comment on above: Order Comment: Name Collection Type:: Collection Method Unknown Performed By: #### C UU, ADDONUAPLUS #### [address] Occult Blood,Urine Negative Normal Negative [facility] Comment on above: Order Comment: Name Collection Type:: Collection Method Unknown Result Comment: PERF ORMED BY: [place] [address] PATHOLOGIST SEXTON HELPER FELICITAS BRINK M.D. Performed By: #### C UU, ADDONUAPLUS #### [address] Protein,Urine Negative Normal Negative [facility] Comment on above: Order Comment: Name Collection Type:: Collection Method Unknown Performed By: #### C UU, ADDONUAPLUS #### [place] [address] [place] RBC,Urine 3-4 Normal 0-4 [facility] Comment on above: Order Comment: Name Collection Type:: Collection Method Unknown Performed By: #### C UU, ADDONUAPLUS #### [place] [address] [place] Specificy [place],Urine 1.011 Normal 1.001-1.03 0 [facility] Comment on above: Order Comment: Name Collection Type:: Collection Method Unknown Performed By: #### C UU, ADDONUAPLUS #### [address] Squamous Epithelial Cell,Urine 1-2 Normal 0-2 [facility] Comment on above: Order Comment: Name Collection Type:: Collection Method Unknown Performed By: #### C UU, ADDONUAPLUS #### [address] Urobilinogen,Urine Normal Normal Normal [facility] Comment on above: Order Comment: Name Collection Type:: Collection Method Unknown Performed By: #### C UU, ADDONUAPLUS #### [address] WBC,Urine 3-4 Normal 0-4 [facility] Comment on above: Order Comment: Name Collection Type:: Collection Method Unknown Performed By: #### C UU, ADDONUAPLUS #### [address] Epithelial cells.squamous [# /area] in Urine sediment by Automated countOrdered By: Adela Baker on 11-09-2023 Epithelial cells.squamous Auto (Urine sed) [#/Area] 1-2 [HPF] 0-2 [facility] Erythrocytes [#/area] in Uri ne sediment by Automated countOrdered By: Adela Baker on 11-09-2023 RBC Auto (Urine sed) [#/Area] 3-4 [HPF] 0-4 [facility] Glucose [Mass/volume] in Uri ne by Test stripOrdered By: Adela Baker on 11-09-2023 Glucose Test strip (U) [Mass/Vol] Normal mg/dL Normal [facility] Hemoglobin Test strip Ql (U) Ordered By: Adela Baker on 11-09-2023 Hemoglobin Ql (U) Negative Negative [facility] Hyaline casts [#/area] in Ur ine sediment by Automated countOrdered By: Adela Baker on 06-30-2024 Hyaline casts Auto (Urine sed) [#/Area] 0-8 [LPF] 0-8 [facility] Ketones [Presence] in Urine by Test stripOrdered By: Adela Baker on 11-09-2023 Ketones Ql (U) Negative Normal Negative [facility] Comment on above: Order Comment: Name Collection Type:: Collection Method Unknown Performed By: #### C UU, ADDONUAPLUS #### [place] [address] [place] Leukocyte esterase [Presence ] in Urine by Test stripOrdered By: Adela Baker on 11-09-2023 Leukocyte esterase Test strip Ql (U) Negative Normal Negative [facility] Comment on above: Order Comment: Name Collection Type:: Collection Method Unknown Performed By: #### C UU, ADDONUAPLUS #### [place] [address] [place] Leukocytes [#/area] in Urine sediment by Automated countOrdered By: Adela Baker on 11-09-2023 WBC Auto (Urine sed) [#/Area] 3-4 [HPF] 0-4 [facility] Mucus [Presence] in Urine by AutomatedOrdered By: Adela Baker on 11-09-2023 Mucus Auto Ql (U) 1+ [LPF] Abnormal [facility] Nitrite Test strip Ql (U)Ord ered By: Adela Baker on 11-09-2023 Nitrite Ql (U) Negative Negative [facility] Protein Test strip (U) [Mass /Vol]Ordered By: Adela Baker on 11-09-2023 Protein (U) [Mass/Vol] Negative Negative [facility] Specific gravity Test strip (U) [Rel density]Ordered By: Adela Baker on 11-09-2023 Specific gravity (U) [Rel density] 1.011 1.001-1.03 0 [facility] Urine Cultureon 11-09-2023 Bacteria identified Cx Nom (U) ORGANISM: Escherichia coli (O:ESCCOL) Thompson Count >100,000 Aerobic SARI Charge (NMIC56) SUSCEPTIBILITY [...] RESISTANT TO ALL B-LACTAM DRUGS. PERFORMED BY: [place] [address] PATHOLOGIST SEXTON HELPER FELICITAS BRINK M.D. Normal [facility] Comment on above: Performed By: #### C RAJAN POLLOCKPLUS #### [address] Urine appearanceOrdered By: Adela Baker on 11-09-2023 Appearance (U) Cloudy Critically abnormal Clear [facility] Comment on above: Order Comment: Name Collection Type:: Collection Method Unknown Performed By: #### C RAJAN POLLOCKPLUS #### [address] Urobilinogen Test strip (U) [Mass/Vol]Ordered By: Adela Baker on 11-09-2023 Urobilinogen (U) [Mass/Vol] Normal mg/dL Normal [facility] pH of Urine by Test stripOrd ered By: Adela Baker on 11-09-2023 pH (U) 6.0 [pH] Normal 5.0-9.0 [facility] Comment on above: Order Comment: Name Collection Type:: Collection Method Unknown Performed By: #### C UU, ADDONUAPLUS #### [address] XR KUBon 07-19-2023 XR KUB [facility] [place] [address] [place] [address] XRay Report Signed Patient: Gogo Carey MR#: [id number] [birth year] : 1940 Acct:[id number] Age/Sex: 82 / F ADM Date: 07/18/23 Loc: ER Room: Type: [facility] ER Attending Dr: Copies to: [...] Noelle Pagan M.D.07/19/2023 8:14 AM Dictation Location: [place] [address] Transcribed By: [facility] 07/19/23813 Dictated By: Noelle Pagan MD 07/19/23811 Signed By: 07/19/23813 Normal [facility] Complete Blood Count Auto Di ffon 07-18-2023 Basophils (Bld) [#/Vol] 0.0 10*3/uL Normal 0.0-0.2 [facility] Comment on above: Result Comment: PERF ORMED BY: [address] [place] [address] PATHOLOGIST SEXTON HELPER FELICITAS BRINK M.D. Performed By: #### C BC #### [address] Basophils/100 WBC (Bld) 0.3 % Normal . [facility] Comment on above: Performed By: #### C BC #### [address] Eosinophils (Bld) [#/Vol] 0.1 10*3/uL Normal 0.0-0.45 [facility] Comment on above: Performed By: #### C BC #### [address] Eosinophils/100 WBC (Bld) 1.9 % Normal . [facility] Comment on above: Performed By: #### C BC #### [address] Erythrocyte distribution width (RBC) [Ratio] 14.1 % Normal 11.9-15.3 [facility] Comment on above: Performed By: #### C BC #### [address] Hematocrit (Bld) [Volume fraction] 44.7 % Normal 34.0-46.4 [facility] Comment on above: Performed By: #### C BC #### [address] Hemoglobin (Bld) [Mass/Vol] 14.9 g/dL Normal 11.8-15.4 [facility] Comment on above: Performed By: #### C BC #### [place] [address] [place] Lymphocytes (Bld) [#/Vol] 1.3 10*3/uL Normal 1.00-4.8 [facility] Comment on above: Performed By: #### C BC #### [address] Lymphocytes/100 WBC (Bld) 18.7 % Normal . [facility] Comment on above: Performed By: #### C BC #### [address] MCH (RBC) [Entitic mass] 30.2 pg Normal 24.7-34.3 [facility] Comment on above: Performed By: #### C BC #### [address] MCV (RBC) [Entitic vol] 90.6 fL Normal 80-100 [facility] Comment on above: Performed By: #### C BC #### [address] Mean Corpuscular HGB Conc 33.3 g/dL Normal 32.0-35.0 [facility] Comment on above: Performed By: #### C BC #### [address] Monocytes (Bld) [#/Vol] 0.6 10*3/uL Normal 0.0-0.8 [facility] Comment on above: Performed By: #### C BC #### [address] Monocytes/100 WBC (Bld) 17.30 % Normal 0.00-20.00 [facility] Comment on above: Performed By: #### C BC #### [address] Monocytes/100 WBC (Bld) 8.5 % Normal . [facility] Comment on above: Performed By: #### C BC #### [address] Neutrophils (Bld) [#/Vol] 4.9 10*3/uL Normal 1.8-7.7 [facility] Comment on above: Performed By: #### C BC #### [address] Neutrophils/100 WBC (Bld) 70.6 % Normal . [facility] Comment on above: Performed By: #### C BC #### [address] NRBC% 0.0 /100{WBC} Normal 0-0.5 [facility] Comment on above: Performed By: #### C BC #### [address] Platelet mean volume (Bld) [Entitic vol] 8.3 fL Normal 6.3-10.7 [facility] Comment on above: Performed By: #### C BC #### [address] Platelets (Bld) [#/Vol] 289 10*3/uL Normal 150-450 [facility] Comment on above: Performed By: #### C BC #### [address] RBC (Bld) [#/Vol] 4.93 10*6/uL Normal 3.60-5.00 [facility] Comment on above: Performed By: #### C BC #### [address] WBC (Bld) [#/Vol] 6.9 10*3/uL Normal 3.8-11.6 [facility] Comment on above: Performed By: #### C BC #### [address] Comprehensive Metabolic Pane jeremiah 07-18-2023 Albumin [Mass/Vol] 4.1 g/dL Normal 3.5-5.7 [facility] Comment on above: Performed By: #### C BC #### [address] Albumin/Globulin [Mass ratio] 1.2 {ratio} Normal [facility] Comment on above: Performed By: #### C BC #### [address] ALP [Catalytic activity/Vol] 68 U/L Normal 34-104 [facility] Comment on above: Performed By: #### C BC #### [address] ALT [Catalytic activity/Vol] 10 U/L Normal 7-52 [facility] Comment on above: Performed By: #### C BC #### [address] Anion gap [Moles/Vol] 10.2 mmol/L Normal 6.0-15.0 [facility] Comment on above: Performed By: #### C BC #### [address] AST [Catalytic activity/Vol] 16 U/L Normal 13-39 [facility] Comment on above: Performed By: #### C BC #### [address] Bilirubin [Mass/Vol] 0.5 mg/dL Normal 0.3-1.0 [facility] Comment on above: Performed By: #### C BC #### [address] Calcium [Mass/Vol] 9.5 mg/dL Normal 8.6-10.3 [facility] Comment on above: Performed By: #### C BC #### [place] [address] [place] Chloride [Moles/Vol] 106 mmol/L Normal 98-107 [facility] Comment on above: Performed By: #### C BC #### [address] CO2 [Moles/Vol] 27.0 mmol/L Normal 21.0-31.0 [facility] Comment on above: Performed By: #### C BC #### [address] Creatinine [Mass/Vol] 0.95 mg/dL Normal 0.60-1.20 [facility] Comment on above: Performed By: #### C BC #### [place] [address] [place] Creatinine Clr Calc Pharmacy 43.89 Normal [facility] Comment on above: Performed By: #### C BC #### [place] [address] [place] GFR/1.73 sq M.predicted MDRD (S/P/Bld) [Vol rate/Area] mL/min/{1.73_m2} Normal [facility] Comment on above: Performed By: #### C BC #### [facility] [address] Globulin (S) [Mass/Vol] 3.3 g/dL Normal [facility] Comment on above: Performed By: #### C BC #### [address] Glucose [Mass/Vol] 114 mg/dL High 70-100 [facility] Comment on above: Result Comment: [facility] Glucose Reference Range is dependent on time and content of last meal. Glucose of more than 200 mg/dL in a nonstressed, ambulatory subject supports the diagnosis of Diabetes Mellitus. ADA recommended reference range Performed By: #### C BC #### [address] Potassium [Moles/Vol] 4.2 mmol/L Normal 3.5-5.1 [facility] Comment on above: Performed By: #### C BC #### [address] Protein [Mass/Vol] 7.4 g/dL Normal 6.4-8.9 [facility] Comment on above: Performed By: #### C BC #### [address] Sodium [Moles/Vol] 139 mmol/L Normal 136-145 [facility] Comment on above: Performed By: #### C BC #### [place] [address] [place] Urea nitrogen [Mass/Vol] 15 mg/dL Normal 7-25 [facility] Comment on above: Performed By: #### C BC #### [address] ECG 12 lead ECGon 07-18-2023 ECG 12 lead ECG [facility] [place] [address] [place] [address] Electrocardiograph Report Signed Patient: Gogo Carey MR#: [id number] [birth year] : 1940 Acct:[id number] Age/Sex: 82 / F ADM Date: 07/18/23 Loc: ER Room: Type: [facility] ER Attending Dr: Ordering Provider: [...] Anterior leads Confirmed by JUAN KAY DO ([id number]) on 07/19/2023 1:53:48 AM Referred By: Electronically Signed By:JUAN KAY DO Transcribed By: MUS Signed By Juan Kay DO 07/18 0154 Normal [facility] Lipaseon 07-18-2023 Lipase [Catalytic activity/Vol] 37.0 U/L Normal 11.0-82.0 [facility] Comment on above: Result Comment: PERF ORMED BY: [place] [address] PATHOLOGIST SEXTON HELPER FELICITAS BRINK M.D. Performed By: #### C BC #### [address] Alanine aminotransferase [En zymatic activity/volume] in Serum or PlasmaOrdered By: Ashleigh Jackson on 06-30-2023 ALT [Catalytic activity/Vol] 11 U/L Normal 7-52 [facility] Comment on above: Performed By: #### C BC #### [place] [address] Albumin [Mass/volume] in Ser um or Plasma by Bromocresol green (BCG) dye binding methoOrdered By: Ashleigh Jackson on 06-30-2023 Albumin BCG dye [Mass/Vol] 4.0 g/dL 3.5-5.7 [facility] Alkaline phosphatase [Enzyma tic activity/volume] in Serum or PlasmaOrdered By: Ashleigh Jackson on 06-30-2023 ALP [Catalytic activity/Vol] 67 U/L Normal 34-104 [facility] Comment on above: Performed By: #### C BC #### [address] Aspartate aminotransferase [ Enzymatic activity/volume] in Serum or PlasmaOrdered By: Ashleigh Jackson on 06-30-2023 AST [Catalytic activity/Vol] 19 U/L Normal 13-39 [facility] Comment on above: Order Comment: Unacc eptable specimen due to HEMOLYSIS. Redraw reordered. Result Comment: PERF ORMED BY: [place] [address] PATHOLOGIST SEXTON HELPER FELICITAS BRINK M.D. Performed By: #### C BC #### [address] Automated basophil %Ordered By: Ashleigh Jackson on 06-30-2023 Basophils/100 WBC (Bld) 0.5 % Normal . [facility] Comment on above: Order Comment: REDRA W Performed By: #### C BC #### [address] Automated basophil countOrde red By: Ashleigh Jackson on 06-30-2023 Basophils (Bld) [#/Vol] 0.0 10*3/uL Normal 0.0-0.2 [facility] Comment on above: Order Comment: REDRA W Result Comment: PERF ORMED BY: [place] [address] PATHOLOGIST SEXTON HELPER FELICITAS BRINK M.D. Performed By: #### C BC #### [place] [id number] [place] Automated blood monocyte cou ntOrdered By: Ashleigh Jackson on 06-30-2023 Monocytes (Bld) [#/Vol] 0.8 10*3/uL Normal 0.0-0.8 [facility] Comment on above: Order Comment: REDRA W Performed By: #### C BC #### [address] Automated eosinophil %Ordere d By: Ashleigh Jackson on 06-30-2023 Eosinophils/100 WBC (Bld) 2.0 % Normal . [facility] Comment on above: Order Comment: REDRA W Performed By: #### C BC #### [address] Automated eosinophil countOr dered By: Ashleigh Jackson on 06-30-2023 Eosinophils (Bld) [#/Vol] 0.1 10*3/uL Normal 0.0-0.45 [facility] Comment on above: Order Comment: REDRA W Performed By: #### C BC #### [address] Automated monocyte %Ordered By: Ashleigh Jackson on 06-30-2023 Monocytes/100 WBC (Bld) 10.4 % Normal . [facility] Comment on above: Order Comment: REDRA W Performed By: #### C BC #### [address] Automated neutrophil %Ordere d By: Ashleigh Jackson on 06-30-2023 Neutrophils/100 WBC (Bld) 65.8 % Normal . [facility] Comment on above: Order Comment: REDRA W Performed By: #### C BC #### [address] Automated urine color determ inationOrdered By: Ashleigh Jackson on 06-30-2023 Color (U) Yellow Normal Yellow [facility] Comment on above: Order Comment: Name Collection Type:: Clean-Voided Midstream Performed By: #### U A #### [address] Bilirubin Test strip Ql (U)O rdered By: Ashleigh Manuel on 06-30-2023 Bilirubin Ql (U) Negative Negative [facility] Bilirubin.total [Mass/volume ] in Serum or PlasmaOrdered By: Ashleigh Manuel on 06-30-2023 Bilirubin [Mass/Vol] 0.6 mg/dL Normal 0.3-1.0 [facility] Comment on above: Performed By: #### C BC #### [address] abdomen pelvis w conon CT abdomen pelvis w con [facility] [place] [address] [place] [address] CT Scan Report Signed Patient: Gogo Carey MR#: [id number] [birth year] : 1940 Acct:[id number] Age/Sex: 82 / F ADM Date: 06/30/23 Loc: ER Room: Type: [facility] ER Attending Dr: Copies to: Ashleigh [...] Huang Ng M.D.06/30/2023 7:05 PM Dictation Location: [place] [address] Transcribed By: [facility] 06/30/231904 Dictated By: Huang Ng DO 06/30/231899 Signed By: 06/30/231904 Normal [facility] Calcium [Mass/volume] in Ser um or PlasmaOrdered By: Ashleigh Jackson on 06-30-2023 Calcium [Mass/Vol] 9.6 mg/dL Normal 8.6-10.3 [facility] Comment on above: Performed By: #### C BC #### [address] Carbon dioxide, total [Moles /volume] in Serum or PlasmaOrdered By: Ashleigh Jackson on 06-30-2023 CO2 [Moles/Vol] 22.0 mmol/L Normal 21.0-31.0 [facility] Comment on above: Performed By: #### C BC #### [address] Chloride [Moles/volume] in S marques or PlasmaOrdered By: Ashleigh Jackson on 06-30-2023 Chloride [Moles/Vol] 107 mmol/L Normal 98-107 [facility] Comment on above: Performed By: #### C BC #### [address] Complete Blood Count Auto Di ffon 06-30-2023 Mean Corpuscular HGB Conc 33.3 g/dL Normal 32.0-35.0 [facility] Comment on above: Order Comment: REDRA W Performed By: #### C BC #### [address] Monocytes/100 WBC (Bld) 19.27 % Normal 0.00-20.00 [facility] Comment on above: Order Comment: REDRA W Performed By: #### C BC #### [address] NRBC% 0.1 /100{WBC} Normal 0-0.5 [facility] Comment on above: Order Comment: REDRA W Performed By: #### C BC #### [address] Comprehensive Metabolic Pane jeremiah 06-30-2023 Albumin [Mass/Vol] 4.0 g/dL Normal 3.5-5.7 [facility] Comment on above: Performed By: #### C BC #### [address] Anion Gap Normal 6.0-15.0 [facility] Comment on above: Result Comment: Spec imen hemolyzed, redraw requested Performed By: #### C BC #### [address] Aspartate Amino Transferase Normal 13-39 [facility] Comment on above: Result Comment: Spec imen hemolyzed, redraw requested Performed By: #### C BC #### [address] Creatinine Clr Calc Pharmacy 47.58 Normal [facility] Comment on above: Performed By: #### C BC #### [address] GFR/1.73 sq M.predicted MDRD (S/P/Bld) [Vol rate/Area] mL/min/{1.73_m2} Normal [facility] Comment on above: Performed By: #### C BC #### [address] Potassium Normal 3.5-5.1 [facility] Comment on above: Result Comment: Spec imen hemolyzed, redraw requested Performed By: #### C BC #### [address] Creatinine [Mass/volume] in Serum or PlasmaOrdered By: Ashleigh Jackson on 06-30-2023 Creatinine [Mass/Vol] 0.94 mg/dL Normal 0.60-1.20 [facility] Comment on above: Performed By: #### C BC #### [facility] [address] Erythrocyte distribution wid th [Ratio] by Automated countOrdered By: Ashleigh Jackson on 06-30-2023 Erythrocyte distribution width (RBC) [Ratio] 14.5 % Normal 11.9-15.3 [facility] Comment on above: Order Comment: REDRA W Performed By: #### C BC #### [facility] [address] Erythrocytes [#/volume] in B lood by Automated countOrdered By: Ashleigh Jackson on 06-30-2023 RBC (Bld) [#/Vol] 4.57 10*6/uL Normal 3.60-5.00 [facility] Comment on above: Order Comment: REDRA W Performed By: #### C BC #### [address] Glucose [Mass/volume] in Ser um or PlasmaOrdered By: Ashleigh Jackson on 06-30-2023 Glucose [Mass/Vol] 93 mg/dL Normal 70-100 [facility] Comment on above: ADA recommended refe rence rangeRandom Glucose Reference Range is dependent on time and content of last meal. Glucose of more than 200 mg/dL in a nonstressed, ambulatory subject supports the diagnosis of Diabetes Mellitus. Result Comment: [place] Glucose Reference Range is dependent on time and content of last meal. Glucose of more than 200 mg/dL in a nonstressed, ambulatory subject supports the diagnosis of Diabetes Mellitus. ADA recommended reference range Performed By: #### C BC #### [facility] [address] Hematocrit [Volume Fraction] of Blood by Automated countOrdered By: Ashleigh Jackson on 06-30-2023 Hematocrit (Bld) [Volume fraction] 41.2 % Normal 34.0-46.4 [facility] Comment on above: Order Comment: REDRA W Performed By: #### C BC #### [place] [address] [place] Hemoglobin [Mass/volume] in BloodOrdered By: Ashleigh Jackson on 06-30-2023 Hemoglobin (Bld) [Mass/Vol] 13.7 g/dL Normal 11.8-15.4 [facility] Comment on above: Order Comment: REDRA W Performed By: #### C BC #### [address] Ketones Auto test strip (U) [Mass/Vol]Ordered By: Ashleigh Jackson on 06-30-2023 Ketones (U) [Mass/Vol] Negative Negative [facility] Leukocytes [#/volume] correc ella for nucleated erythrocytes in Blood by Automated counOrdered By: Ashleigh Jackson on 06-30-2023 WBC corrected for nucl RBC Auto (Bld) [#/Vol] 7.4 10*3/uL 3.8-11.6 [facility] Leukocytes [#/volume] in Blo od by Automated countOrdered By: Ashleigh Jackson on 06-30-2023 WBC (Bld) [#/Vol] 7.4 10*3/uL Normal 3.8-11.6 [facility] Comment on above: Order Comment: REDRA W Performed By: #### C BC #### [address] Lipase [Enzymatic activity/v olume] in Serum or PlasmaOrdered By: Ashleigh Jackson on 06-30-2023 Lipase [Catalytic activity/Vol] 38.0 U/L Normal 11.0-82.0 [facility] Comment on above: Result Comment: PERF ORMED BY: [place] [address] PATHOLOGIST S[employer]ON [employer]PER FELICITAS BRINK M.D. Performed By: #### C BC #### [address] Lymphocytes [#/volume] in Bl ood by Automated countOrdered By: Ashleigh Jackson on 06-30-2023 Lymphocytes (Bld) [#/Vol] 1.6 10*3/uL Normal 1.00-4.8 [facility] Comment on above: Order Comment: REDRA W Performed By: #### C BC #### [address] Lymphocytes/100 leukocytes i n Blood by Automated countOrdered By: Ashleigh Jackson on 06-30-2023 Lymphocytes/100 WBC (Bld) 21.3 % Normal . [facility] Comment on above: Order Comment: REDRA W Performed By: #### C BC #### [address] MCH [Entitic mass] by Automa ella countOrdered By: Ashleigh Jackson on 06-30-2023 MCH (RBC) [Entitic mass] 29.9 pg Normal 24.7-34.3 [facility] Comment on above: Order Comment: REDRA W Performed By: #### C BC #### [address] MCHC Auto (RBC) [Mass/Vol]Or dered By: Ashleigh Jackson on 06-30-2023 MCHC (RBC) [Mass/Vol] 33.3 g/dL 32.0-35.0 [facility] MCV [Entitic volume] by Auto mated countOrdered By: Ashleigh Jackson on 06-30-2023 MCV (RBC) [Entitic vol] 90.0 fL Normal 80-100 [facility] Comment on above: Order Comment: REDRA W Performed By: #### C BC #### [address] Monocyte distribution width [Entitic volume] in Blood by AutomatedOrdered By: Ashleigh Jackson on 06-30-2023 Monocyte distribution width Auto (Bld) [Entitic vol] 19.27 % 0.00-20.00 [facility] Neutrophils [#/volume] in Bl ood by Automated countOrdered By: Ashleigh Jackson on 06-30-2023 Neutrophils (Bld) [#/Vol] 4.8 10*3/uL Normal 1.8-7.7 [facility] Comment on above: Order Comment: REDRA W Performed By: #### C BC #### [address] Nitrite Test strip Ql (U)Ord ered By: Ashleigh Jackson on 06-30-2023 Nitrite Ql (U) Negative Negative [facility] No Panel InformationOrdered By: Ashleigh Jackson on 06-30-2023 Estimated GFR (CKD-EPI) > 60.0 mL/Min [facility] Creatinine Clearance (Chem 47.58 [facility] Nucleated erythrocytes [Pres ence] in Blood by Automated countOrdered By: Ashleigh Jackson on 06-30-2023 Nucleated RBC Auto Ql (Bld) 0.1 /100{WBC} 0-0.5 [facility] Platelet mean volume [Entiti c volume] in Blood by Automated countOrdered By: Ashleigh Jackson on 06-30-2023 Platelet mean volume (Bld) [Entitic vol] 8.1 fL Normal 6.3-10.7 [facility] Comment on above: Order Comment: REDRA W Performed By: #### C BC #### [facility] [address] Platelets [#/volume] in Bloo d by Automated countOrdered By: Ashleigh Jackson on 06-30-2023 Platelets (Bld) [#/Vol] 304 10*3/uL Normal 150-450 [facility] Comment on above: Order Comment: REDRA W Performed By: #### C BC #### [facility] [address] [place] [address] [place] Potassium [Moles/volume] in Serum or PlasmaOrdered By: Ashleigh Jackson on 06-30-2023 Potassium [Moles/Vol] 4.4 mmol/L Normal 3.5-5.1 [facility] Comment on above: Order Comment: Unacc eptable specimen due to HEMOLYSIS. Redraw reordered. Performed By: #### C BC #### [facility] [address] [place] [address] [place] Protein Auto test strip (U) [Mass/Vol]Ordered By: Ashleigh Jackson on 06-30-2023 Protein (U) [Mass/Vol] Negative Negative [facility] Protein [Mass/volume] in Ser um or PlasmaOrdered By: Ashleigh Jackson on 06-30-2023 Protein [Mass/Vol] 6.8 g/dL Normal 6.4-8.9 [facility] Comment on above: Performed By: #### C BC #### [address] Serum globulin measurement b y calculation (mass/volume)Ordered By: Ashleigh Jackson on 06-30-2023 Globulin (S) [Mass/Vol] 2.8 g/dL Normal [facility] Comment on above: Performed By: #### C BC #### [address] Serum or plasma albumin/glob ulin mass ratioOrdered By: Ashleigh Jackson on 06-30-2023 Albumin/Globulin [Mass ratio] 1.4 {ratio} [facility] Comment on above: Performed By: #### C BC #### [address] Serum or plasma anion gap de terminationOrdered By: Ashleigh Jackson on 06-30-2023 Anion gap [Moles/Vol] See comment 6.0-15.0 [facility] Comment on above: Specimen hemolyzed, redraw requested Sodium [Moles/volume] in Ser um or PlasmaOrdered By: Ashleigh Jackson on 06-30-2023 Sodium [Moles/Vol] 137 mmol/L Normal 136-145 [facility] Comment on above: Performed By: #### C BC #### [address] Specific gravity Auto test s trip (U) [Rel density]Ordered By: Ashleigh Jackson on 06-30-2023 Specific gravity (U) [Rel density] 1.018 1.001-1.03 0 [facility] Urea nitrogen [Mass/volume] in Serum or PlasmaOrdered By: Ashleigh Jackson on 06-30-2023 Urea nitrogen [Mass/Vol] 16 mg/dL Normal 7-25 [facility] Comment on above: Performed By: #### C BC #### [address] Urinalysison 06-30-2023 Appearance (U) Clear Normal Clear [facility] Comment on above: Order Comment: Name Collection Type:: Clean-Voided Midstream Performed By: #### U A #### [place] [address] [place] Bilirubin,Urine Negative Normal Negative [facility] Comment on above: Order Comment: Name Collection Type:: Clean-Voided Midstream Performed By: #### U A #### [address] Glucose Ql (U) Normal Normal Normal [facility] Comment on above: Order Comment: Name Collection Type:: Clean-Voided Midstream Performed By: #### U A #### [address] Ketones Ql (U) Negative Normal Negative [facility] Comment on above: Order Comment: Name Collection Type:: Clean-Voided Midstream Performed By: #### U A #### [address] Leukocyte esterase Test strip Ql (U) Negative Normal Negative [facility] Comment on above: Order Comment: Name Collection Type:: Clean-Voided Midstream Performed By: #### U A #### [place] [address] [place] Nitrite,Urine Negative Normal Negative [facility] Comment on above: Order Comment: Name Collection Type:: Clean-Voided Midstream Performed By: #### U A #### [address] Occult Blood,Urine Negative Normal Negative [facility] Comment on above: Order Comment: Name Collection Type:: Clean-Voided Midstream Result Comment: PERF ORMED BY: [place] [address] PATHOLOGIST [employer]PER FELICITAS BRINK M.D. Performed By: #### U A #### [place] [address] [place] Protein,Urine Negative Normal Negative [facility] Comment on above: Order Comment: Name Collection Type:: Clean-Voided Midstream Performed By: #### U A #### [place] [address] [place] Specificy [place],Urine 1.018 Normal 1.001-1.03 0 [facility] Comment on above: Order Comment: Name Collection Type:: Clean-Voided Midstream Performed By: #### U A #### [facility] [address] Urobilinogen,Urine Normal Normal Normal [facility] Comment on above: Order Comment: Name Collection Type:: Clean-Voided Midstream Performed By: #### U A #### [facility] [address] Urine clarity by refractomet ry automatedOrdered By: Ashleigh Jackson on 06-30-2023 Clarity Refractometry automated (U) Clear Clear [facility] Urine glucose measurement by automated test strip (mass/volume)Ordered By: Ashleigh Jackson on 06-30-2023 Glucose Auto test strip (U) [Mass/Vol] Normal mg/dL Normal [facility] Urine hemoglobin detection b y automated test stripOrdered By: Ashleigh Jackson on 06-30-2023 Hemoglobin Auto test strip Ql (U) Negative Negative [facility] Urine leukocyte esterase det ection by automated test stripOrdered By: Ashleigh Jackson on 06-30-2023 Leukocyte esterase Auto test strip Ql (U) Negative Negative [facility] Urine pH measurement by auto mated test stripOrdered By: Ashleigh Jackson on 06-30-2023 pH (U) 6.0 [pH] Normal 5.0-9.0 [facility] Comment on above: Order Comment: Name Collection Type:: Clean-Voided Midstream Performed By: #### U A #### [facility] [address] [place] [id number] [facility] Urobilinogen Auto test strip (U) [Mass/Vol]Ordered By: Ashleigh Jackson on 06-30-2023 Urobilinogen (U) [Mass/Vol] Normal mg/dL Normal [facility] Alanine aminotransferase [En zymatic activity/volume] in Serum or PlasmaOrdered By: Carine Montoya on 05-28-2023 ALT [Catalytic activity/Vol] 13 U/L Normal 7-52 [facility] Comment on above: Performed By: #### T SH3, T4F, CBC, CMP, ESR #### [facility] [address] Albumin [Mass/volume] in Ser um or Plasma by Bromocresol green (BCG) dye binding methoOrdered By: Carine Montoya on 05-28-2023 Albumin BCG dye [Mass/Vol] 4.1 g/dL 3.5-5.7 [facility] Alkaline phosphatase [Enzyma tic activity/volume] in Serum or PlasmaOrdered By: Carine Montoya on 05-28-2023 ALP [Catalytic activity/Vol] 76 U/L Normal 34-104 [facility] Comment on above: Performed By: #### T SH3, T4F, CBC, CMP, ESR #### [facility] [address] [place] [address] Aspartate aminotransferase [ Enzymatic activity/volume] in Serum or PlasmaOrdered By: Carine Montoya on 05-28-2023 AST [Catalytic activity/Vol] 20 U/L Normal 13-39 [facility] Comment on above: Performed By: #### T SH3, T4F, CBC, CMP, ESR #### [facility] [address] [place] [address] Automated basophil %Ordered By: Carine Montoya on 05-28-2023 Basophils/100 WBC (Bld) 0.5 % Normal . [facility] Comment on above: Performed By: #### T SH3, T4F, CBC, CMP, ESR #### [facility] [address] [place] [address] Automated basophil countOrde red By: Carine Montoya on 05-28-2023 Basophils (Bld) [#/Vol] 0.0 10*3/uL Normal 0.0-0.2 [facility] Comment on above: Performed By: #### T SH3, T4F, CBC, CMP, ESR #### [facility] [address] [place] [address] Automated blood monocyte cou ntOrdered By: Carine Montoya on 05-28-2023 Monocytes (Bld) [#/Vol] 0.7 10*3/uL Normal 0.0-0.8 [facility] Comment on above: Performed By: #### T SH3, T4F, CBC, CMP, ESR #### [address] Automated eosinophil %Ordere d By: Carine Montoya on 05-28-2023 Eosinophils/100 WBC (Bld) 3.5 % Normal . [facility] Comment on above: Performed By: #### T SH3, T4F, CBC, CMP, ESR #### [address] Automated eosinophil countOr dered By: Carine Mnotoya on 05-28-2023 Eosinophils (Bld) [#/Vol] 0.2 10*3/uL Normal 0.0-0.45 [facility] Comment on above: Performed By: #### T SH3, T4F, CBC, CMP, ESR #### [address] Automated monocyte %Ordered By: Carine Montoya on 05-28-2023 Monocytes/100 WBC (Bld) 12.7 % Normal . [facility] Comment on above: Performed By: #### T SH3, T4F, CBC, CMP, ESR #### [address] Automated neutrophil %Ordere d By: Carine Montoya on 05-28-2023 Neutrophils/100 WBC (Bld) 58.7 % Normal . [facility] Comment on above: Performed By: #### T SH3, T4F, CBC, CMP, ESR #### [address] Bilirubin.total [Mass/volume ] in Serum or PlasmaOrdered By: Carine Montoya on 05-28-2023 Bilirubin [Mass/Vol] 0.7 mg/dL Normal 0.3-1.0 [facility] Comment on above: Performed By: #### T SH3, T4F, CBC, CMP, ESR #### [address] Calcium [Mass/volume] in Ser um or PlasmaOrdered By: Carine Montoya on 01-17-2024 Calcium [Mass/Vol] 9.5 mg/dL Normal 8.6-10.3 [facility] Comment on above: Performed By: #### T SH3, T4F, CBC, CMP, ESR #### [address] Carbon dioxide, total [Moles /volume] in Serum or PlasmaOrdered By: Carine Montoya on 05-28-2023 CO2 [Moles/Vol] 26.5 mmol/L Normal 21.0-31.0 [facility] Comment on above: Performed By: #### T SH3, T4F, CBC, CMP, ESR #### [address] Chloride [Moles/volume] in S marques or PlasmaOrdered By: Carine Montoya on 05-28-2023 Chloride [Moles/Vol] 108 mmol/L High 98-107 [facility] Comment on above: Performed By: #### T SH3, T4F, CBC, CMP, ESR #### [address] Complete Blood Count Auto Di ffon 05-28-2023 Mean Corpuscular HGB Conc 33.6 g/dL Normal 32.0-35.0 [facility] Comment on above: Performed By: #### T SH3, T4F, CBC, CMP, ESR #### [address] NRBC% 0.1 /100{WBC} Normal 0-0.5 [facility] Comment on above: Performed By: #### T SH3, T4F, CBC, CMP, ESR #### [address] Comprehensive Metabolic Pane jeremiah 05-28-2023 Albumin [Mass/Vol] 4.1 g/dL Normal 3.5-5.7 [facility] Comment on above: Performed By: #### T SH3, T4F, CBC, CMP, ESR #### [address] GFR/1.73 sq M.predicted MDRD (S/P/Bld) [Vol rate/Area] mL/min/{1.73_m2} Normal [facility] Comment on above: Performed By: #### T SH3, T4F, CBC, CMP, ESR #### [address] Creatinine [Mass/volume] in Serum or PlasmaOrdered By: Carine Montoya on 05-28-2023 Creatinine [Mass/Vol] 0.87 mg/dL Normal 0.60-1.20 [facility] Comment on above: Performed By: #### T SH3, T4F, CBC, CMP, ESR #### [address] Erythrocyte Sedimentation Ra iza 05-28-2023 ESR (Bld) [Velocity] 29 mm/h Normal 0-29 [facility] Comment on above: Result Comment: PERF ORMED BY: [place] [address] PATHOLOGIST S[employer]ON HELPER FELICITAS BRINK M.D. Performed By: #### T SH3, T4F, CBC, CMP, ESR #### [address] Erythrocyte distribution wid th [Ratio] by Automated countOrdered By: Carine Montoya on 05-28-2023 Erythrocyte distribution width (RBC) [Ratio] 14.6 % Normal 11.9-15.3 [facility] Comment on above: Performed By: #### T SH3, T4F, CBC, CMP, ESR #### [address] Erythrocyte sedimentation ra te by Photometric methodOrdered By: Carine Montoya on 05-28-2023 ESR Photometric method (Bld) [Velocity] 29 mm/hr 0-29 [facility] Erythrocytes [#/volume] in B lood by Automated countOrdered By: Carine Montoya on 05-28-2023 RBC (Bld) [#/Vol] 4.57 10*6/uL Normal 3.60-5.00 [facility] Comment on above: Performed By: #### T SH3, T4F, CBC, CMP, ESR #### [facility] [address] [place] [address] [place] Glucose [Mass/volume] in Ser um or PlasmaOrdered By: Carine Montoya on 05-28-2023 Glucose [Mass/Vol] 87 mg/dL Normal 70-100 [facility] Comment on above: ADA recommended refe rence rangeRandom Glucose Reference Range is dependent on time and content of last meal. Glucose of more than 200 mg/dL in a nonstressed, ambulatory subject supports the diagnosis of Diabetes Mellitus. Result Comment: [place] Glucose Reference Range is dependent on time and content of last meal. Glucose of more than 200 mg/dL in a nonstressed, ambulatory subject supports the diagnosis of Diabetes Mellitus. ADA recommended reference range Performed By: #### T SH3, T4F, CBC, CMP, ESR #### [facility] [address] Hematocrit [Volume Fraction] of Blood by Automated countOrdered By: Carine Montoya on 05-28-2023 Hematocrit (Bld) [Volume fraction] 41.5 % Normal 34.0-46.4 [facility] Comment on above: Performed By: #### T SH3, T4F, CBC, CMP, ESR #### [facility] [address] Hemoglobin [Mass/volume] in BloodOrdered By: Carine Montoya on 05-28-2023 Hemoglobin (Bld) [Mass/Vol] 13.9 g/dL Normal 11.8-15.4 [facility] Comment on above: Performed By: #### T SH3, T4F, CBC, CMP, ESR #### [facility] [address] Leukocytes [#/volume] correc ella for nucleated erythrocytes in Blood by Automated counOrdered By: Carine Montoya on 05-28-2023 WBC corrected for nucl RBC Auto (Bld) [#/Vol] 5.6 10*3/uL 3.8-11.6 [facility] Leukocytes [#/volume] in Blo od by Automated countOrdered By: Carine Montoya on 05-28-2023 WBC (Bld) [#/Vol] 5.6 10*3/uL Normal 3.8-11.6 [facility] Comment on above: Performed By: #### T SH3, T4F, CBC, CMP, ESR #### [address] Lymphocytes [#/volume] in Bl ood by Automated countOrdered By: Carine Montoya on 05-28-2023 Lymphocytes (Bld) [#/Vol] 1.4 10*3/uL Normal 1.00-4.8 [facility] Comment on above: Performed By: #### T SH3, T4F, CBC, CMP, ESR #### [address] Lymphocytes/100 leukocytes i n Blood by Automated countOrdered By: Carine Montoya on 05-28-2023 Lymphocytes/100 WBC (Bld) 24.6 % Normal . [facility] Comment on above: Performed By: #### T SH3, T4F, CBC, CMP, ESR #### [address] MCH [Entitic mass] by Automa ella countOrdered By: Carine Montoya on 05-28-2023 MCH (RBC) [Entitic mass] 30.5 pg Normal 24.7-34.3 [facility] Comment on above: Performed By: #### T SH3, T4F, CBC, CMP, ESR #### [address] MCHC Auto (RBC) [Mass/Vol]Or dered By: Carine Montoya on 05-28-2023 MCHC (RBC) [Mass/Vol] 33.6 g/dL 32.0-35.0 [facility] MCV [Entitic volume] by Auto mated countOrdered By: Carine Montoya on 05-28-2023 MCV (RBC) [Entitic vol] 90.8 fL Normal 80-100 [facility] Comment on above: Performed By: #### T SH3, T4F, CBC, CMP, ESR #### [address] Neutrophils [#/volume] in Bl ood by Automated countOrdered By: Carine Montoya on 05-28-2023 Neutrophils (Bld) [#/Vol] 3.3 10*3/uL Normal 1.8-7.7 [facility] Comment on above: Performed By: #### T SH3, T4F, CBC, CMP, ESR #### [facility] [address] No Panel InformationOrdered By: Carine Montoya on 05-28-2023 Estimated GFR (CKD-EPI) > 60.0 mL/Min [facility] Creatinine Clearance (Chem N/A [facility] Nucleated erythrocytes [Pres ence] in Blood by Automated countOrdered By: Carine Montoya on 05-28-2023 Nucleated RBC Auto Ql (Bld) 0.1 /100{WBC} 0-0.5 [facility] Platelet mean volume [Entiti c volume] in Blood by Automated countOrdered By: Carine Montoya on 05-28-2023 Platelet mean volume (Bld) [Entitic vol] 8.1 fL Normal 6.3-10.7 [facility] Comment on above: Performed By: #### T SH3, T4F, CBC, CMP, ESR #### [facility] [address] [place] [address] [place] Platelets [#/volume] in Bloo d by Automated countOrdered By: Carine Montoya on 05-28-2023 Platelets (Bld) [#/Vol] 289 10*3/uL Normal 150-450 [facility] Comment on above: Performed By: #### T SH3, T4F, CBC, CMP, ESR #### [facility] [address] [place] [address] [place] Potassium [Moles/volume] in Serum or PlasmaOrdered By: Carine Montoya on 05-28-2023 Potassium [Moles/Vol] 4.5 mmol/L Normal 3.5-5.1 [facility] Comment on above: Performed By: #### T SH3, T4F, CBC, CMP, ESR #### [facility] [address] [place] [address] [place] Protein [Mass/volume] in Ser um or PlasmaOrdered By: Carine Montoya on 05-28-2023 Protein [Mass/Vol] 6.8 g/dL Normal 6.4-8.9 [facility] Comment on above: Performed By: #### T SH3, T4F, CBC, CMP, ESR #### [address] Serum globulin measurement b y calculation (mass/volume)Ordered By: Carine Montoya on 05-28-2023 Globulin (S) [Mass/Vol] 2.7 g/dL Normal [facility] Comment on above: Performed By: #### T SH3, T4F, CBC, CMP, ESR #### [address] Serum or plasma albumin/glob ulin mass ratioOrdered By: Carine Montoya on 05-28-2023 Albumin/Globulin [Mass ratio] 1.5 {ratio} [facility] Comment on above: Performed By: #### T SH3, T4F, CBC, CMP, ESR #### [address] Serum or plasma anion gap de terminationOrdered By: Carine Montoya on 05-28-2023 Anion gap [Moles/Vol] 11.0 mmol/L Normal 6.0-15.0 [facility] Comment on above: Performed By: #### T SH3, T4F, CBC, CMP, ESR #### [address] Sodium [Moles/volume] in Ser um or PlasmaOrdered By: Carine Montoya on 05-28-2023 Sodium [Moles/Vol] 141 mmol/L Normal 136-145 [facility] Comment on above: Performed By: #### T SH3, T4F, CBC, CMP, ESR #### [address] Thyrotropin [Units/volume] i n Serum or PlasmaOrdered By: Carine Montoya on 05-28-2023 TSH Qn 13.24 m[IU]/L High 0.45-5.33 [facility] Comment on above: Result Comment: PERF ORMED BY: [place] [address] PATHOLOGIST SEXTON HELPER FELICITAS BRINK M.D. Performed By: #### C BC #### [address] Thyroxine (T4) free [Mass/vo lume] in Serum or PlasmaOrdered By: Carine Montoya on 05-28-2023 Free T4 [Mass/Vol] 0.67 ng/dL Normal 0.61-1.12 [facility] Comment on above: Performed By: #### T SH3, T4F, CBC, CMP, ESR #### [address] Urea nitrogen [Mass/volume] in Serum or PlasmaOrdered By: Carine Montoya on 05-28-2023 Urea nitrogen [Mass/Vol] 21 mg/dL Normal 7-25 [facility] Comment on above: Performed By: #### T SH3, T4F, CBC, CMP, ESR #### [address] Capillary blood glucose tavares urement by glucometer (mass/volume)Ordered By: Camille Dennison on 05-07-2023 Glucose [Mass/Vol] 115 mg/dL Normal [facility] Comment on above: Random Glucose Refer ence Range is dependent on time and content of last meal. Glucose of more than 200 mg/dL in a nonstressed, ambulatory subject supports the diagnosis of Diabetes Mellitus. Result Comment: [place] Glucose Reference Range is dependent on time and content of last meal. Glucose of more than 200 mg/dL in a nonstressed, ambulatory subject supports the diagnosis of Diabetes Mellitus. PERFORMED BY: [place] [address] PATHOLOGIST SEXTON HELPER FELICITAS BRINK M.D. Performed By: #### G LULS #### Point of Care testing , ECG 12 lead ECGon 05-07-2023 ECG 12 lead ECG [facility] [place] [address] Electrocardiograph Report Signed Patient: Gogo Carey MR#: [id number] [birth year] : 1940 Acct:[id number] Age/Sex: 82 / F ADM Date: 05/07/23 Loc: ER Room: Type: [facility] ER Attending Dr: Ordering Provider: [...] complexes Confirmed by Daniel DE SANTIAGO DO ([id number]) on 05/08/2023 6:12:51 AM Referred By: Electronically Signed By:Daniel DE SANTIAGO DO Transcribed By: MUS Signed By Daniel De Santiago DO 1 07/09/22 0612 Normal [facility] XR acute abdomen serieson XR acute abdomen series [facility] [place] [address] [place] [address] XRay Report Signed Patient: Gogo Carey MR#: [id number] [birth year] : 1940 Acct:[id number] Age/Sex: 82 / F ADM Date: 03/02/23 [...] Hanson Jr., D.OSarah03/02/2023 4:03 PM Dictation Location: [facility]15 Transcribed By: ANIKA 03/02/23 160 Dictated By: Brady Hanson Jr, DO 03/02/23 160 Signed By: 03/02/23 160 Normal [facility] XR KUBon 12-16-2022 XR KUB [facility] [place] [address] XRay Report Signed Patient: Gogo Carey MR#: [id number] [birth year] : 1940 Acct:[id number] Age/Sex: 82 / F ADM Date: 12/16/22 [...] Noelle Pagan M.D.12/16/2022 4:03 PM Dictation Location: [facility]-02 Transcribed By: ANIKA 12/16/22 160 Dictated By: Noelle Pagan MD 12/16/22 160 Signed By: 12/16/22 160 Normal [facility] CBC AUTO DIFFon 09-16-2022 BASO # 0.0 103/ul Normal 0.0-0.1 [facility] Comment on above: Performed By: #### C MP, LIPID, TSH, T7 #### [facility] [address] [address] [address] Grace Durand Basophils/100 WBC (Bld) 0.3 % Normal 0.2-2.0 [facility] Comment on above: Performed By: #### C MP, LIPID, TSH, T7 #### [facility] [address] [place] [address] Dr. Grace Durand EO # 0.1 103/ul Normal 0.0-0.7 [facility] Comment on above: Performed By: #### C MP, LIPID, TSH, T7 #### [facility] [address] [place] [address] Dr. Grace Durand Eosinophils/100 WBC (Bld) 1.3 % Normal 0.9-7.0 [facility] Comment on above: Performed By: #### C MP, LIPID, TSH, T7 #### [facility] [address] [place] [address] Dr. Grace Durand Erythrocyte distribution width (RBC) [Ratio] 13.8 % Normal 11.0-15.0 [facility] Comment on above: Performed By: #### C MP, LIPID, TSH, T7 #### [facility] [address] [place] [address] Dr. Grace Durand Hematocrit (Bld) [Volume fraction] 42.9 % Normal 36.0-48.0 [facility] Comment on above: Performed By: #### C MP, LIPID, TSH, T7 #### [facility] [address] [place] [address] Dr. Grace Durand Hemoglobin (Bld) [Mass/Vol] 14.2 g/dL Normal 12.0-16.0 [facility] Comment on above: Performed By: #### C MP, LIPID, TSH, T7 #### [facility] [address] [place] [address] Dr. Grace Durand IG # 0.02 10e3/ul Normal 0.00-0.03 [facility] Comment on above: Performed By: #### C MP, LIPID, TSH, T7 #### [facility] [address] [place] [address] Dr. Grace Durand IG % 0.3 % Normal 0.0-0.5 [facility] Comment on above: Performed By: #### C MP, LIPID, TSH, T7 #### [facility] [address] [place] [address] Dr. Grace Durand LYMPH # 1.6 103/ul Normal 1.2-3.8 [facility] Comment on above: Performed By: #### C MP, LIPID, TSH, T7 #### [facility] [address] [place] [address] Dr. Grace Durand Lymphocytes/100 WBC (Bld) 22.8 % Normal 20.5-60.0 [facility] Comment on above: Performed By: #### C MP, LIPID, TSH, T7 #### [facility] [address] [place] [address] Dr. Grace Durand MANUAL DIFF REQ NO Normal [facility] Comment on above: Performed By: #### C MP, LIPID, TSH, T7 #### [facility] [address] [place] [address] Dr. Grace Durand MCH (RBC) [Entitic mass] 30.0 pg Normal 26.7-34.0 [facility] Comment on above: Performed By: #### C MP, LIPID, TSH, T7 #### [facility] [address] [place] [address] Dr. Grace Durand MCHC (RBC) [Mass/Vol] 33.1 g/dL Normal 29.9-35.2 [facility] Comment on above: Performed By: #### C MP, LIPID, TSH, T7 #### [facility] [address] [place] [address] Dr. Grace Durand MCV (RBC) [Entitic vol] 90.5 fL Normal 81.0-99.0 [facility] Comment on above: Performed By: #### C MP, LIPID, TSH, T7 #### [facility] [address] [place] [address] Dr. Grace Durand MONO # 0.7 103/ul Normal 0.3-0.8 [facility] Comment on above: Performed By: #### C MP, LIPID, TSH, T7 #### [facility] [address] [place] [address] Dr. Grace Durand Monocytes/100 WBC (Bld) 10.4 % Normal 1.7-12.0 [facility] Comment on above: Performed By: #### C MP, LIPID, TSH, T7 #### [facility] [address] [place] [address] Dr. Grace Durand NEUT # 4.6 103/ul Normal 1.4-6.5 [facility] Comment on above: Performed By: #### C MP, LIPID, TSH, T7 #### [facility] [address] [place] [address] Dr. Grace Durand Neutrophils/100 WBC (Bld) 64.9 % Normal 43.0-75.0 [facility] Comment on above: Performed By: #### C MP, LIPID, TSH, T7 #### [facility] [address] [place] [address] Dr. Grace Durand Platelet mean volume (Bld) [Entitic vol] 9.6 fL Normal 9.5-13.5 [facility] Comment on above: Performed By: #### C MP, LIPID, TSH, T7 #### [facility] [address] [place] [address] Dr. Grace Durand PLT 297 103/ul Normal 150-450 [facility] Comment on above: Performed By: #### C MP, LIPID, TSH, T7 #### [facility] [address] [place] [address] Dr. Grace Durand RBC 4.74 106/ul Normal 4.20-5.40 [facility] Comment on above: Performed By: #### C MP, LIPID, TSH, T7 #### [facility] [address] [place] [address] Dr. Grace Durand WBC 7.0 103/ul Normal 4.0-11.0 [facility] Comment on above: Performed By: #### C MP, LIPID, TSH, T7 #### [facility] [address] [place] [address] ABD/PELV W CONon [...] by: HECTOR GONZALEZ Date: 2022-09-16 19:29 Normal [facility] LACTATE/LACTIC ACIDon 2022 Lactate [Moles/Vol] 1.7 mmol/L Normal 0.4-2.0 [facility] Comment on above: Performed By: #### L ACT #### [facility] [address] [place] [address] Dr. Grace Durand PROF CHEM 8 (BAS METB)on Anion gap [Moles/Vol] 12.9 mmol/L Normal [facility] Comment on above: Performed By: #### B MP #### [facility] [address] [address] [address] Grace Durand Calcium [Mass/Vol] 9.5 mg/dL Normal 8.5-10.1 [facility] Comment on above: Performed By: #### B MP #### [facility] [address] [address] [address] Grace Durand Chloride [Moles/Vol] 107 mmol/L Normal 98-107 [facility] Comment on above: Performed By: #### B MP #### [facility] [address] [address] [address] Grace Durand CO2 [Moles/Vol] 23.6 mmol/L Normal 21.0-32.0 [facility] Comment on above: Performed By: #### B MP #### [facility] [address] [address] [address] Grace Durand Creatinine [Mass/Vol] 1.14 mg/dL Critically high 0.55-1.02 [facility] Comment on above: Performed By: #### B MP #### [facility] [address] [address] [address] Grace Durand EGFR-AF LATVIAN 56 mL/min/1.73m2 Critically low >=60 [facility] Comment on above: Performed By: #### B MP #### [facility] [address] [address] [address] Grace Durand EGFR-NON AF LATVIAN 46 mL/min/1.73m2 Critically low >=60 [facility] Comment on above: Performed By: #### B MP #### [facility] [address] [address] [address] Grace Durand Glucose [Mass/Vol] 120 mg/dL Critically high 74-106 [facility] Comment on above: Performed By: #### B MP #### [facility] [address] [address] [address] Grace Durand Potassium [Moles/Vol] 3.5 mmol/L Normal 3.5-5.1 [facility] Comment on above: Performed By: #### B MP #### [facility] [address] [address] [address] Grace Durand Sodium [Moles/Vol] 140 mmol/L Normal 136-145 [facility] Comment on above: Performed By: #### B MP #### [facility] [address] [address] [address] Grace Durand Urea nitrogen [Mass/Vol] 14.0 mg/dL Normal 7.0-18.0 [facility] Comment on above: Performed By: #### B MP #### [facility] [address] [place] [address] Dr. Grace Durand Urea nitrogen/Creatinine [Mass ratio] 12.3 mg/mg Normal [facility] Comment on above: Performed By: #### B MP #### [facility] [address] [place] [address] Dr. Grace Durand XR ABD FLAT UP_PA [...] LUKAS HENRY Date: 2022-07-20 16:03 Normal [facility] T4 LABCORPon 10-05-2021 T4 [Mass/Vol] 6.6 ug/dL Normal 4.5-12.0 [facility] Comment on above: Performed By: #### T 4LC #### [facility] [address] [place] [address] Dr. Grace Durand INSULINon 10-02-2021 Insulin 7.4 uIU/mL Normal 2.6-24.9 [facility] Comment on above: Performed By: #### C MP, LIPID, TSH, T7 #### [facility] [address] [place] [address] Dr. Grace Durand CBC AUTO DIFFon 10-01-2021 BASO # 0.0 103/ul Normal 0.0-0.1 [facility] Comment on above: Performed By: #### C MP, LIPID, TSH, T7 #### [facility] [address] [place] [address] Dr. Grace Durand Basophils/100 WBC (Bld) 0.4 % Normal 0.2-2.0 [facility] Comment on above: Performed By: #### C MP, LIPID, TSH, T7 #### [facility] [address] [place] [address] Dr. Grace Durand EO # 0.2 103/ul Normal 0.0-0.7 [facility] Comment on above: Performed By: #### C MP, LIPID, TSH, T7 #### [facility] [address] [place] [address] Dr. Grace Durand Eosinophils/100 WBC (Bld) 3.1 % Normal 0.9-7.0 [facility] Comment on above: Performed By: #### C MP, LIPID, TSH, T7 #### [facility] [address] [place] [address] Dr. Grace Durand Erythrocyte distribution width (RBC) [Ratio] 13.6 % Normal 11.0-15.0 [facility] Comment on above: Performed By: #### C MP, LIPID, TSH, T7 #### [facility] [address] [place] [address] Dr. Grace Durand Hematocrit (Bld) [Volume fraction] 45.9 % Normal 36.0-48.0 [facility] Comment on above: Performed By: #### C MP, LIPID, TSH, T7 #### [facility] [address] [place] [address] Dr. Grace Durand Hemoglobin (Bld) [Mass/Vol] 14.7 g/dL Normal 12.0-16.0 [facility] Comment on above: Performed By: #### C MP, LIPID, TSH, T7 #### [facility] [address] [place] [address] Dr. Grace Durand IG # 0.01 10e3/ul Normal 0.00-0.03 [facility] Comment on above: Performed By: #### C MP, LIPID, TSH, T7 #### [facility] [address] [place] [address] Dr. Grace Durand IG % 0.2 % Normal 0.0-0.5 [facility] Comment on above: Performed By: #### C MP, LIPID, TSH, T7 #### [facility] [address] [place] [address] Dr. Grace Durand LYMPH # 1.5 103/ul Normal 1.2-3.8 [facility] Comment on above: Performed By: #### C MP, LIPID, TSH, T7 #### [facility] [address] [place] [address] Dr. Grace Durand Lymphocytes/100 WBC (Bld) 30.0 % Normal 20.5-60.0 [facility] Comment on above: Performed By: #### C MP, LIPID, TSH, T7 #### [facility] [address] [place] [address] Dr. Grace Durand MANUAL DIFF REQ NO Normal [facility] Comment on above: Performed By: #### C MP, LIPID, TSH, T7 #### [facility] [address] [place] [address] Dr. Grace Durand MCH (RBC) [Entitic mass] 29.1 pg Normal 26.7-34.0 [facility] Comment on above: Performed By: #### C MP, LIPID, TSH, T7 #### [facility] [address] [place] [address] Dr. Grace Durand MCHC (RBC) [Mass/Vol] 32.0 g/dL Normal 29.9-35.2 [facility] Comment on above: Performed By: #### C MP, LIPID, TSH, T7 #### [facility] [address] [place] [address] Dr. Grace Durand MCV (RBC) [Entitic vol] 90.7 fL Normal 81.0-99.0 [facility] Comment on above: Performed By: #### C MP, LIPID, TSH, T7 #### [facility] [address] [place] [address] Dr. Grace Durand MONO # 0.5 103/ul Normal 0.3-0.8 [facility] Comment on above: Performed By: #### C MP, LIPID, TSH, T7 #### [facility] [address] [place] [address] Dr. Grace Durand Monocytes/100 WBC (Bld) 9.9 % Normal 1.7-12.0 [facility] Comment on above: Performed By: #### C MP, LIPID, TSH, T7 #### [facility] [address] [place] [address] Dr. Grace Durand NEUT # 2.9 103/ul Normal 1.4-6.5 [facility] Comment on above: Performed By: #### C MP, LIPID, TSH, T7 #### [facility] [address] [place] [address] Dr. Grace Durand Neutrophils/100 WBC (Bld) 56.4 % Normal 43.0-75.0 [facility] Comment on above: Performed By: #### C MP, LIPID, TSH, T7 #### [facility] [address] [place] [address] Dr. Grace Durand Platelet mean volume (Bld) [Entitic vol] 10.1 fL Normal 9.5-13.5 [facility] Comment on above: Performed By: #### C MP, LIPID, TSH, T7 #### [facility] [address] [place] [address] Dr. Grace Durand PLT 288 103/ul Normal 150-450 [facility] Comment on above: Performed By: #### C MP, LIPID, TSH, T7 #### [facility] [address] [place] [address] Dr. Grace Durand RBC 5.06 106/ul Normal 4.20-5.40 [facility] Comment on above: Performed By: #### C MP, LIPID, TSH, T7 #### [facility] [address] [place] [address] Dr. Grace Durand WBC 5.1 103/ul Normal 4.0-11.0 [facility] Comment on above: Performed By: #### C MP, LIPID, TSH, T7 #### [facility] [address] [place] [address] Dr. Grace Durand FREE THYROXINE INDEX T7on FTI 2.11 Normal 1.30-4.50 [facility] Comment on above: Performed By: #### C MP, LIPID, TSH, T7 #### [facility] [address] [place] [address] Dr. Grace Durand T3U 32.0 % Normal 30.0-39.0 [facility] Comment on above: Performed By: #### C MP, LIPID, TSH, T7 #### [facility] [address] [place] [address] Dr. Grace Durand T4 [Mass/Vol] 6.60 ug/dL Normal 4.80-13.90 [facility] Comment on above: Performed By: #### C MP, LIPID, TSH, T7 #### [facility] [address] [place] [address] Dr. Grace Durand GLYCOHEMOGLOBIN A1Con 2021 ADA RECOMMENDATION SEE BELOW Normal [facility] Comment on above: Result Comment: ADA RECOMMENDED LIMIT 4.0 - 6.0 ADA THERAPEUTIC TARGET < 7.0 ACTION SUGGESTED > 7.0 Performed By: #### C MP, LIPID, TSH, T7 #### [facility] [address] [place] [address] Dr. Grace Durand Glucose [Mass/Vol] 108 mg/dL Normal [facility] Comment on above: Performed By: #### C MP, LIPID, TSH, T7 #### [facility] [address] [place] [address] Dr. Grace Durand HbA1c (Bld) [Mass fraction] 5.4 % Normal 4.5-6.2 [facility] Comment on above: Performed By: #### C MP, LIPID, TSH, T7 #### [facility] [address] [place] [address] Dr. Grace Durand IRONon 05-23-2022 Iron [Mass/Vol] 76.0 ug/dL Normal 50.0-170.0 [facility] Comment on above: Performed By: #### I GWYN #### [facility] [address] [address] [address] Grace Durand LIPID PROFILEon 10-01-2021 CHOL-HDL RATIO NORM SEE BELOW Normal [facility] [facility] Comment on above: Result Comment: 3.3 - 4.4 LOW RISK 4.4 - 7.1 AVERAGE RISK 7.1 - 11.0 MODERATE RISK >11.0 HIGH RISK Performed By: #### C MP, LIPID, TSH, T7 #### [facility] [address] [address] [address] Grace Durand Cholesterol [Mass/Vol] 200 mg/dL Normal <=200 Th [facility] Comment on above: Performed By: #### C MP, LIPID, TSH, T7 #### [facility] [address] [place] [address] Dr. Grace Durand Cholesterol in HDL [Mass/Vol] 61 mg/dL Critically high 40-60 [facility] Comment on above: Performed By: #### C MP, LIPID, TSH, T7 #### [facility] [address] [address] [address] Grace Durand Cholesterol in LDL [Mass/Vol] 109.8 mg/dL Normal [facility] Comment on above: Performed By: #### C MP, LIPID, TSH, T7 #### [facility] [address] [address] [address] Grace Durand Cholesterol.total/Chol esterol in HDL [Mass ratio] 3.3 {ratio} Normal [facility] Comment on above: Performed By: #### C MP, LIPID, TSH, T7 #### [facility] [address] [address] [address] Grace Durand HDL NORMAL > or = 60 mg/dl - LO W CARDIOVASCULAR RISK <40 mg/dl - HIGH CARDIOVASCULAR RISK Normal [facility] Comment on above: Performed By: #### C MP, LIPID, TSH, T7 #### [facility] [address] [place] [address] Dr. Grace Durand LDL CALC NORMAL SEE BELOW Normal [facility] Comment on above: Result Comment: <100 mg/dl OPTIMAL 100 - 129 mg/dl NEAR OR ABOVE OPTIMAL 130 - 159 mg/dl BORDERLINE HIGH 160 - 189 mg/dl HIGH >190 mg/dl VERY HIGH Performed By: #### C MP, LIPID, TSH, T7 #### [facility] [address] [address] [address] Grace Durand Triglyceride [Mass/Vol] 146 mg/dL Normal <=150 [facility] Comment on above: Performed By: #### C MP, LIPID, TSH, T7 #### [facility] [address] [address] [address] Grace Durand VLDL CALC 29.2 mg/dL Normal [facility] Comment on above: Performed By: #### C MP, LIPID, TSH, T7 #### [facility] [address] [place] [address] Dr. Grace Durand PROF 14(COMP METB)on 022 Albumin [Mass/Vol] 3.6 g/dL Normal 3.4-5.0 [facility] Comment on above: Performed By: #### C MP, LIPID, TSH, T7 #### [facility] [address] [address] [address] Grace Durand Albumin/Globulin [Mass ratio] 0.9 {ratio} Normal [facility] Comment on above: Performed By: #### C MP, LIPID, TSH, T7 #### [facility] [address] [place] [address] Dr. Grace Durand ALP [Catalytic activity/Vol] 90 U/L Normal 46-116 [facility] Comment on above: Performed By: #### C MP, LIPID, TSH, T7 #### [facility] [address] [address] [address] Grace Durand ALT [Catalytic activity/Vol] 20 U/L Normal 14-59 [facility] Comment on above: Performed By: #### C MP, LIPID, TSH, T7 #### [facility] [address] [address] [address] Grace Durand Anion gap [Moles/Vol] 11.0 mmol/L Normal Th e [facility] Comment on above: Performed By: #### C MP, LIPID, TSH, T7 #### [facility] [address] [place] [address] Dr. Grace Durand AST [Catalytic activity/Vol] 18 U/L Normal 15-37 [facility] Comment on above: Performed By: #### C MP, LIPID, TSH, T7 #### [facility] [address] [place] [address] Dr. Grace Durand Bilirubin [Mass/Vol] 0.5 mg/dL Normal 0.2-1.0 [facility] Comment on above: Performed By: #### C MP, LIPID, TSH, T7 #### [facility] [address] [place] [address] Dr. Grace Durand Calcium [Mass/Vol] 9.3 mg/dL Normal 8.5-10.1 [facility] Comment on above: Performed By: #### C MP, LIPID, TSH, T7 #### [facility] [address] [place] [address] Dr. Grace Durand Chloride [Moles/Vol] 107 mmol/L Normal 98-107 [facility] Comment on above: Performed By: #### C MP, LIPID, TSH, T7 #### [facility] [address] [place] [address] Dr. Grace Durand CO2 [Moles/Vol] 26.9 mmol/L Normal 21.0-32.0 [facility] Comment on above: Performed By: #### C MP, LIPID, TSH, T7 #### [facility] [address] [place] [address] Dr. Grace Durand Creatinine [Mass/Vol] 0.96 mg/dL Normal 0.55-1.02 [facility] Comment on above: Performed By: #### C MP, LIPID, TSH, T7 #### [facility] [address] [place] [address] Dr. Grace Durand EGFR-AF LATVIAN >60 Normal >=60 [facility] Comment on above: Performed By: #### C MP, LIPID, TSH, T7 #### [facility] [address] [address] [address] Grace Durand EGFR-NON AF LATVIAN 56 mL/min/1.73m2 Critically low >=60 [facility] Comment on above: Performed By: #### C MP, LIPID, TSH, T7 #### [facility] [address] [address] [address] Grace Durand Globulin (S) [Mass/Vol] 3.9 g/dL Normal [facility] Comment on above: Performed By: #### C MP, LIPID, TSH, T7 #### [facility] [address] [address] [address] Grace Durand Glucose [Mass/Vol] 95 mg/dL Normal 74-106 [facility] Comment on above: Performed By: #### C MP, LIPID, TSH, T7 #### [facility] [address] [address] [address] Grace Durand Potassium [Moles/Vol] 4.9 mmol/L Normal 3.5-5.1 [facility] Comment on above: Performed By: #### C MP, LIPID, TSH, T7 #### [facility] [address] [address] [address] Grace Durand Protein [Mass/Vol] 7.5 g/dL Normal 6.4-8.2 [facility] Comment on above: Performed By: #### C MP, LIPID, TSH, T7 #### [facility] [address] [address] [address] Grace Durand Sodium [Moles/Vol] 140 mmol/L Normal 136-145 [facility] Comment on above: Performed By: #### C MP, LIPID, TSH, T7 #### [facility] [address] [address] [address] Grace Durand Urea nitrogen [Mass/Vol] 15.0 mg/dL Normal 7.0-18.0 [facility] Comment on above: Performed By: #### C MP, LIPID, TSH, T7 #### [facility] [address] [address] [address] Grace Durand Urea nitrogen/Creatinine [Mass ratio] 15.6 mg/mg Normal [facility] Comment on above: Performed By: #### C MP, LIPID, TSH, T7 #### [facility] [address] [address] [address] Grace Durand TSHon 10-01-2021 TSH 0.265 uIU/mL Critically low 0.358-3.74 0 [facility] Comment on above: Performed By: #### C MP, LIPID, TSH, T7 #### [facility] [address] [address] [address] Grace Durand TSH RANGE SEE BELOW Normal [facility] Comment on above: Result Comment: <0.3 4 UIU/ml HYPERTHYROID 0.34-5.60 UIU/ml EUTHYROID >5.60 UIU/ml HYPOTHYROID Performed By: #### C MP, LIPID, TSH, T7 #### [facility] [address] [address] [address] Grace Durand Physician Referralon 021 Physician Referral [id number]:127 Normal [facility] 03-09-2020 Forms [id number]:127 Normal [facility] Physician Referralon 020 Physician Referral [id number]:127 Normal [facility] Ambulatory Clinical Summaryo n 02-28-2020 Ambulatory Clinical Summary {[id number]}CD: [id number] Normal [facility] Patient Educationon 02-28-20 20 Patient Education Family [...] your urinary (more content not included)... 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 There have been no [...] 1. Female bladder prolapse (N81.10: Cystocele, unspecified) [employer] is referred by Adela Baker CNP. Pt. had a bladder prolapse reair with mesh in by dr flores at [facility]. Her bladder has dropped again [...] When Contact Information LENNY HARDY, Juan Solano [address] [place] [address] [place] [address]- [phone] Additional Instructions: Patient Education Urinary Frequency Gabrielle [...] Vitamins oral tablet, 1 tab(s), Oral, Daily [place] 325 mg-5 mg oral tablet, 1 tab(s), Oral, q4hr, PRN, 1 refills, Not taking sertraline 100 mg Tab, 100 mg= 1 tab(s), Oral, Daily (more content not included)... [facility] Comment on above: Result Comment: Elec tronically Signed By: Juan COPPOLA MD\.br\Date and Time Signed: 02/28/20 13:30 EDT\.br\Electronically Co-Signed By: Gabrielle Moore MA\.br\Date and Time Co-Signed: 02/28/20 13:25 EDT SHOULDER RIGHT 10-01-2017 [facility] [place] [address] Yarelis ent Name: GOGO CAREY : 1940Sex: FAge: Race: WhiteMRN: [id number]. Location: 84Patient Status: DVisit #: [id number] Date: 10/01/2017 4:30:00 PMCompleted Date: 10/01/2017 04:36 PMRequesting Provider: GONZALEZ ANSARI Attending Provider: GONZALEZ ANSARI Report Copy To: UNKNOWN, PHYSICIAN Signs & Symptoms: S46.011A Strain of musc/tend the rotator cuff of right shoulder, init K90Xpovxlq: AthenaComments: , , , Ordering Franky ANSARI MD , Exam: SHOULDER RIGHTAccession #: [id number] ===SHOULDER RIGHT 10/01/2017 4:36 PM EDT SIGNS [...] findings. Electronically signed by:Ron Velez. Transcribed by: [email or web address], User Resident: PEYMAN JEAN BAPTISTEElectronically Signed by: RON VELEZ @ 10/02/2017 09:36 AMI personally read this/these film(s) with this resident Normal [facility] Comment on above: Order Comment: , , = ========= , Ordering Franky ANSARI MD , Discharge Summaryon 01-28- 17 Dis[facility] Summary [id number] Admitted: 01/21/2017 Discharged: [...] 01/28/2017/03:22 P/Gauri Pagan M.D.Date Trans: 01/28/2017 04:03 P/mmoDN_JN:[id number] Normal [facility] CBC W/DIFFon 01-22-2017 Basophils Auto #/vol (Bld) 0.0 % Normal 0.0-2.0 [facility] Comment on above: Order Comment: No: D o not add to previous draw Performed By: #### 5 0103 ####[facility] [place] [address], [facility] Eosinophils/100 leukocytes 0.0 % Normal 0.0-5.0 [facility] Comment on above: Order Comment: No: D o not add to previous draw Performed By: #### 5 0103 ####[facility] [facility] Erythrocyte distribution width Auto Ratio (RBC) 13.8 % Normal 11.5-16.9 [facility] Comment on above: Order Comment: No: D o not add to previous draw Performed By: #### 5 0103 ####[facility] Erythrocytes (RBC) 3.62 mill/mm3 Normal 3.50-5.50 [facility] Comment on above: Order Comment: No: D o not add to previous draw Performed By: #### 5 0103 ####[facility] [facility].[address] Hematocrit (HCT) 32.1 % Low 36.0-48.0 [facility] Comment on above: Order Comment: No: D o not add to previous draw Performed By: #### 5 0103 ####[facility] [facility].[address] Hemoglobin mass conc (Bld) 10.4 g/dL Low 12.0-15.0 [facility] Comment on above: Order Comment: No: D o not add to previous draw Performed By: #### 5 0103 ####[facility] [facility] [place] [address], [facility] Lymphocytes/100 leukocytes 6.4 % Low 20.0-40.0 [facility] Comment on above: Order Comment: No: D o not add to previous draw Performed By: #### 5 3 ####[facility] [facility] [place] [address], [facility] MCH 28.7 pg Normal 24.0-32.0 [facility] Comment on above: Order Comment: No: D o not add to previous draw Performed By: #### 5 0103 ####[facility] [facility].[address] MCHC mass conc (RBC) 32.4 g/dL Normal 32.0-36.0 [facility] Comment on above: Order Comment: No: D o not add to previous draw Performed By: #### 5 0103 ####[facility] MCV 88.6 fL Normal 80.0-100.0 [facility] Comment on above: Order Comment: No: D o not add to previous draw Performed By: #### 5 0103 ####[facility] [facility].[address] METHOD Normal [facility] Comment on above: Order Comment: No: D o not add to previous draw Result Comment: Auto mated differential performedNormal RBC Morphology Performed By: #### 5 0103 ####[facility] [facility].[address] MONOS 9.0 % High 2-8 [facility] Comment on above: Order Comment: No: D o not add to previous draw Performed By: #### 5 0103 ####[facility] [facility].[address] Neutrophils/100 leukocytes 84.6 % High 50-70 [facility] Comment on above: Order Comment: No: D o not add to previous draw Performed By: #### 5 0103 ####[facility] [facility].[address] PLAT CNT 312 Thou/mm3 Normal 100-400 [facility] Comment on above: Order Comment: No: D o not add to previous draw Performed By: #### 5 0103 ####[facility] WBC (Leukocytes) 8.0 Thou/mm3 Normal 4.0-10.0 [facility] Comment on above: Order Comment: No: D o not add to previous draw Performed By: #### 5 0103 ####[facility] Operative Reporton Operative Report MR#: [id number] [facility] Room #: [id number] Discharge Date: Birthdate: 1940 OPERATIVE REPORTDATE OF [...] glenoid with a slightinferior tilt. The central private pilot hole was drilled and the glenoid [...] 01/22/2017/08:44 A/Gonzalez Ansari M.D.Date Trans: 01/22/2017 05:59 P/mmoDN_JN:[id number] Normal [facility] ARTERIAL BLOOD GAS W/COOXon 01-21-2017 BASE EXCESS 0 mmol/L Normal -2-2 [facility] Comment on above: Performed By: #### 7 0067, 11752, 93108, 68679 ####[facility] [place] [address], [facility] Bicarbonate (HCO3) 25 mmol/L Normal 23-27 [facility] Comment on above: Performed By: #### 7 0067, 83060, 63883, 93178 ####[facility] [place] [address], [facility] CO2 37 mmHg Normal 35-45 [facility] Comment on above: Performed By: #### 7 006, 26816, 83157, 41556 ####[facility] [place] [address], [facility] COHB 2 % High 0-1 [facility] Comment on above: Performed By: #### 7 66, , 55744, 61682 ####[facility] [place] [address], [facility] METHB 1.0 % Normal 0.0-1.5 [facility] Comment on above: Performed By: #### 7 66, , 81946, 67825 ####[facility] [place] [address], [facility] O2 saturation 96.4 % Normal 94.0-97.0 [facility] Comment on above: Performed By: #### 7 66, , 90445, 98371 ####[facility] Oxygen in arterial blood 99 mm[Hg] Normal 75-100 [facility] Comment on above: Performed By: #### 7 66, , 37071, 43390 ####[facility] [facility] [place] [address], [facility] pH of blood 7.43 [pH] Normal 7.35-7.45 [facility] Comment on above: Performed By: #### 7 66, , 15502, 99086 ####[facility] [place] [address], [facility] THB 11.0 g/dL Low 12.0-15.0 [facility] Comment on above: Performed By: #### 7 66, 86766, 38108, 94873 ####[facility] [place] [address], [facility] CALCIUM IONIZED CBGLon 01-21 IONIZED CALCIUM 1.22 mmol/L Normal 1.13-1.32 [facility] Comment on above: Performed By: #### 7 0067, 85043, 86696, 62381 ####[facility] [place], [place] [address] [place] [address] POC GLUCOSE LABon 01-21-2017 Glucose mass conc 92 mg/dL Normal 70-100 [facility] Comment on above: Performed By: #### 8 5499 ####[facility] [place], [place] [address] [place] [address] PORTABLE SHOULDER RIGHT 2 VW Son 01-21-2017 PORTABLE SHOULDER RIGHT 2 VWS [facility] [place] [id number] Yarelis ent Name: GOGO CAREY : 1940Sex: FAge: Race: WhiteMRN: [id number]. Location: OUTPPatient Status: IVisit #: [id number] Date: 01/21/2017 7:40:00 PMCompleted Date: 01/21/2017 08:41 PMRequesting Provider: GAURI PAGAN Attending Provider: GONZALEZ ANSARI Report Copy To: Signs & Symptoms: Post OPHistory: Patient history not availableComments: Hardware EvaluationExam: PORTABLE SHOULDER RIGHT 2 VWSAccession #: [id number] ===PORTABLE SHOULDER RIGHT 2 VWS 01/21/2017 8:41 [...] alignment Electronically signed by:Freddy Mcrae. Transcribed by: [email or web address], User Resident: Electronically Signed by: FREDDY MCRAE @ 01/22/2017 11:45 AM Normal [facility] Comment on above: Order Comment: Hardw are Evaluation POTASSIUM WHOLE BLOOD CBGLon 01-21-2017 Potassium molar conc 3.5 mmol/L Normal 3.4-5.2 [facility] Comment on above: Performed By: #### 7 0067, 32908, 92714, 06081 ####[facility] SODIUM WHOLE BLOOD CBGLon Sodium 137.0 mmol/L Normal 136.0-146. 0 [facility] Comment on above: Performed By: #### 7 0067, 99755, 17498, 28733 ####[facility] CHEST AND LATERALon 01-16-20 17 CHEST AND LATERAL [facility] [place], [place] [address] Yarelis ent Name: GOGO CAREY : 1940Sex: FAge: Race: WhiteMRN: [id number]. Location: 84Patient Status: OVisit #: [id number] Date: 01/15/2017 3:05:00 PMCompleted Date: 01/15/2017 03:06 PMRequesting Provider: GONZALEZ ANSARI Attending Provider: GONZALEZ ANSARI Report Copy To: Signs & Symptoms: S46.011A Strain of musc/tend the rotator cuff of right shoulder, init E50Hwqdwzb: AthenaComments: , , Views (X-RAY, CHEST): PA , , , Ordering Franky ANSARI MD , Rendering Franky ANSARI MD , Exam: CHEST AND LATERALAccession #: [id number] ===CHEST AND LATERAL 01/15/2017 3:08 PM EDT [...] process. Electronically signed by:Evaristo Buchanan. Transcribed by: [email or web address], User Resident: Electronically Signed by: EVARISTO BUCHANAN @ 01/15/2017 03:50 PM Normal [facility] Comment on above: Order Comment: , , V iews (X-RAY, CHEST): PA , , , Ordering Franky ANSARI MD , Rendering Franky ANSARI MD , Vital Signs Date Time Vital Sign Value Performing Clinician Facility 03-19-2024 09:30-0500 Body mass index (BMI) [Ratio] 36.99 kg/m2 Moe Ponce [employer] Work Phone: [facility] 03-19-2024 09:30-0500 Body temperature 98.4 [degF] Moe Ponce [employer] Work Phone: [facility] 03-19-2024 09:30-0500 Body weight 80.29 kg Moe Dennys [employer] Work Phone: [facility] 03-19-2024 09:30-0500 Heart rate 71 /min Moe Ponce [employer] Work Phone: [facility] 03-19-2024 09:30-0500 SaO2% (BldA) [Mass fraction] 96 % Moe Dennys [employer] Work Phone: [facility] 03-18-2024 19:54-0500 Body mass index (BMI) [Ratio] 36.99 kg/m2 Moe Dennys [employer] Work Phone: [facility] 03-18-2024 19:54-0500 Body temperature 98.71 [degF] Moe Dennys [employer] Work Phone: [facility] 03-18-2024 19:54-0500 Body weight 80.29 kg Moe Dennys [employer] Work Phone: [facility] 03-18-2024 19:54-0500 Diastolic blood pressure 96 mm[Hg] Moe Dennys [employer] Work Phone: [facility] 03-18-2024 19:54-0500 Heart rate 84 /min Moe Ponce [employer] Work Phone: [facility] 03-18-2024 19:54-0500 SaO2% (BldA) [Mass fraction] 97 % Moe Ponce [employer] Work Phone: [facility] 03-18-2024 19:54-0500 Systolic blood pressure 132 mm[Hg] Moe Dennys [employer] Work Phone: [facility] 06-30-2023 21:04-0500 Body temperature 97 [degF] [employer] Adela Olivia Work Phone: [facility] 06-30-2023 21:04-0500 Diastolic blood pressure 72 mm[Hg] [employer] Adela Olivia Work Phone: [facility] 06-30-2023 21:04-0500 Heart rate 64 /min [employer] Adela Olivia Work Phone: [facility] 06-30-2023 21:04-0500 Respiratory rate 20 /min [employer] Adela Olivia Work Phone: [facility] 06-30-2023 21:04-0500 SaO2% (BldA) [Mass fraction] 97 % [employer] Adela Olivia Work Phone: [facility] 06-30-2023 21:04-0500 Systolic blood pressure 128 mm[Hg] [employer] Adela Olivia Work Phone: [facility] 06-30-2023 14:21-0500 Body height 152.4 cm [employer] Adela Olivia Work Phone: [facility] 06-30-2023 14:21-0500 Body weight 89.6 kg [employer] Adela Olivia Work Phone: [facility] 05-07-2023 18:25-0500 Diastolic blood pressure 94 mm[Hg] [employer] Adela Olivia Work Phone: [facility] 05-07-2023 18:25-0500 Heart rate 98 /min [employer] Adela Olivia Work Phone: [facility] 05-07-2023 18:25-0500 Respiratory rate 18 /min [employer] Adela Olivia Work Phone: [facility] 05-07-2023 18:25-0500 SaO2% (BldA) [Mass fraction] 96 % [employer] Adela Olivia Work Phone: [facility] 05-07-2023 18:25-0500 Systolic blood pressure 137 mm[Hg] [employer] Adela Olivia Work Phone: [facility] 05-07-2023 15:54-0500 Body temperature 97.5 [degF] [employer] Adela Olivia Work Phone: [facility] 05-07-2023 15:51-0500 Body height 154.94 cm [employer] Adela Olivia Work Phone: [facility] 05-07-2023 15:51-0500 Body weight 77.11 kg [employer] Adela Olivia Work Phone: [facility] 03-02-2023 19:24-0400 Diastolic blood pressure 78 mm[Hg] [employer] Adela Olivia Work Phone: [facility] 03-02-2023 19:24-0400 Heart rate 92 /min [employer] Adela Olivia Work Phone: [facility] 03-02-2023 19:24-0400 Respiratory rate 20 /min [employer] Adela Olivia Work Phone: [facility] 03-02-2023 19:24-0400 SaO2% (BldA) [Mass fraction] 98 % [employer] Adela Olivia Work Phone: [facility] 03-02-2023 19:24-0400 Systolic blood pressure 148 mm[Hg] [employer] Adela Olivia Work Phone: [facility] 03-02-2023 15:36-0400 Body height 152.4 cm [employer] Adela Olivia Work Phone: [facility] 03-02-2023 15:36-0400 Body weight 78.01 kg [employer] Adela Olivia Work Phone: [facility] 03-02-2023 15:35-0400 Body temperature 97.9 [degF] [employer] Adela Olivia Work Phone: [facility] 12-16-2022 23:29-0400 Diastolic blood pressure 90 mm[Hg] NEW [employer] Adela Olivia Work Phone: [facility] 12-16-2022 23:29-0400 Heart rate 94 /min [employer] Adela Olivia Work Phone: [facility] 12-16-2022 23:29-0400 Respiratory rate 19 /min [employer] Adela Olivia Work Phone: [facility] 12-16-2022 23:29-0400 SaO2% (BldA) [Mass fraction] 97 % [employer] Adela Olivia Work Phone: [facility] 12-16-2022 23:29-0400 Systolic blood pressure 141 mm[Hg] [employer] Adela Olivia Work Phone: [facility] 12-16-2022 21:06-0400 Body height 152.4 cm [employer] Adela Olivia Work Phone: [facility] 12-16-2022 21:06-0400 Body weight 83.6 kg [employer] Adela Olivia Work Phone: [facility] 12-16-2022 15:24-0400 Body temperature 97.7 [degF] [employer] Adela Olivia Work Phone: [facility] 10-11-2022 17:37-0400 Body height 154.94 cm [employer] Adela Olivia Work Phone: [facility] 10-11-2022 17:37-0400 Body temperature 98.4 [degF] [employer] Adela Olivia Work Phone: [facility] 10-11-2022 17:37-0400 Body weight 87.7 kg [employer] Adela Olivia Work Phone: [facility] 10-11-2022 17:37-0400 Diastolic blood pressure 70 mm[Hg] [employer]C Adela Olivia Work Phone: [facility] 10-11-2022 17:37-0400 Heart rate 90 /min [employer] Adela Olivia Work Phone: [facility] 10-11-2022 17:37-0400 Respiratory rate 20 /min [employer] Adela Loivia Work Phone: [facility] 10-11-2022 17:37-0400 SaO2% (BldA) [Mass fraction] 96 % [employer] Adela Olivia Work Phone: [facility] 10-11-2022 17:37-0400 Systolic blood pressure 145 mm[Hg] NEW [employer]ERSON[employer]C Adela Olivia Work Phone: [facility] 08-18-2022 22:00-0400 Diastolic blood pressure 78 mm[Hg] NEW [employer] SAL[employer]ERSON[employer]C Adela Olivia Work Phone: [facility] 08-18-2022 22:00-0400 Heart rate 68 /min [employer]ERSON[employer] Adela Olivia Work Phone: [facility] 08-18-2022 22:00-0400 Respiratory rate 18 /min [employer] Adela Olivia Work Phone: [facility] 08-18-2022 22:00-0400 SaO2% (BldA) [Mass fraction] 100 % [employer] Adela Olivia Work Phone: [facility] 08-18-2022 22:00-0400 Systolic blood pressure 124 mm[Hg] NEW [employer]ERSON[employer]C Adela Olivia Work Phone: [facility] 08-18-2022 21:03-0400 Body height 152.4 cm [employer] Adela Olivia Work Phone: [facility] 08-18-2022 21:03-0400 Body temperature 98.6 [degF] [employer]ERSON[employer]C Adela Olivia Work Phone: [facility] 08-18-2022 21:03-0400 Body weight 86.18 kg NEW [employer] Adela Olivia Work Phone: [facility] Encounters Encounter Date Encounter Type Care Provider Facility Start: 03-19-2024 End: 03-19-2024 ambulatory MOE NOYOLA Not Available Start: 03-19-2024 End: 03-19-2024 Office outpatient visit 25 minutes Moe Noyola NEW CAR SALESPERSON Work Phone: [facility] Comment on above: Right hand pain (Petra jose angel Dx); Cat scratch of hand, right, initial encounter; Cellulitis of right hand Start: 03-18-2024 End: 03-18-2024 ambulatory MOE NOYOLA Not Available Start: 03-18-2024 End: 03-18-2024 Office outpatient visit 25 minutes Moe Noyola NEW CAR SALESPERSON Work Phone: [facility] Comment on above: Cat scratch of hand, right, initial encounter (Primary Dx); Cellulitis of finger of right hand Start: 11-09-2023 End: 11-09-2023 ambulatory NEW [employer] SAL[employer]ERSON-C Adela Baker Work Phone: [facility] Work Phone: Start: 11-09-2023 End: 11-09-2023 Departed Referred [employer]C Adela Baker Work Phone: [facility] [place] Work Phone: Start: 07-18-2023 End: 07-18-2023 Emergency department patient visit Juan Kay Facility:[facility] Start: 06-30-2023 End: 06-30-2023 Emergency department patient visit NEW [employer]ERSON-C Adela Baker Work Phone: [facility] Work Phone: Start: 05-28-2023 End: 05-28-2023 ambulatory NEW [employer] SAL[employer]ERSON-C Adela Baker Work Phone: [facility] Work Phone: Start: 05-28-2023 End: 05-28-2023 Patient encounter procedure NEW [employer] SAL[employer]ERSON-C Adela Baker Work Phone: [facility] [place] Work Phone: Start: 05-07-2023 End: 05-07-2023 Emergency department patient visit NEW [employer] SAL[employer]ERSON-C Adela Baker Work Phone: [facility] Work Phone: Start: 03-02-2023 End: 03-02-2023 Emergency department patient visit NEW [employer] SAL[employer]ERSON-C Adela Baker Work Phone: [facility] Work Phone: Start: 12-16-2022 End: 12-17-2022 Emergency department patient visit NEW [employer] SAL[employer]ERSON-C Adela Baker Work Phone: [facility] Work Phone: Start: 10-11-2022 End: 10-11-2022 Emergency department patient visit NEW [employer] SAL[employer]ERSON[employer]C Adela Baker Work Phone: [facility] Work Phone: Start: 09-16-2022 End: 09-16-[address] ALISA Smith Facility:[facility] Start: 08-18-2022 End: 08-18-2022 Emergency department patient visit NEW [employer] SAL[employer]ERSON-C Adela Baker Work Phone: [facility] Work Phone: Start: 08-13-2022 End: 08-13-2022 ambulatory [employer]ERSON-C Adela Baker Work Phone: [facility] Work Phone: Start: 08-13-2022 End: 08-13-2022 Patient encounter procedure NEW [employer] SAL[employer]ERSON-C Adela Baker Work Phone: [facility] Lab Work Phone: Start: 07-20-2022 End: 07-20-2022 ambulatory ADELA BAKER Facility:[facility] Start: 10-01-2021 End: 10-02-2021 ambulatory ADELA BAKER Facility:[facility] Start: 10-01-2017 End: 10-02-2017 Ambulatory GONZALEZ ANSARI Facility:[facility] Start: 01-21-2017 End: 01-23-2017 Evaluation and management of inpatient GONZALEZ ANSARI Facility:[facility] Start: 01-15-2017 End: 01-16-2017 Ambulatory GONZALEZ ANSARI Facility:[facility] Start: 12-11-2016 End: 12-12-2016 Ambulatory DEFAULT PHYSICIAN Facility:[facility] Start: 12-11-2016 End: 12-12-2016 Ambulatory DEFAULT PHYSICIAN Facility:[facility] Procedures Date Procedure Procedure Detail Performing Clinician Start: 03-19-2024 Radex hand minimum 3 views Moe Noyola NEW [employer] SAL[employer]ERSON Work Phone: Start: 06-30-2023 Computed tomography of abdomen and pelvis with contrast [employer] Adela Baker Work Phone: Start: 03-02-2023 Diagnostic radiograp hy of abdomen [employer] Adela Baker Work Phone: Start: 12-16-2022 Diagnostic radiograp hy of abdomen [employer] Adela Baker Work Phone: Start: 01-21-2017 MEASURE OF ARTERIAL SATURATION, PERIPHERAL, PERC APPROACH GONZALEZ ANSARI Start: 01-21-2017 REPLACE OF R SHOULDE R JT WITH REV BL \T\ SOCKT, OPEN APPROACH GONZALEZ ANSARI Plan of Treatment Date Care Activity Detail Author Start: 01-11-2024 Influenza vaccination Influenza Vaccine (#1) [facility] Start: 11-09-2023 Bacteria identified in Urine by Culture [facility] Start: 11-27-2007 Pneumococcal Vaccine: 65+ Years (1 of 1 - PCV) Pneumococcal Vaccine: 65+ Years (1 of 1 - PCV) [facility] Patient Education [facility] Work Phone: Patient referral [facility] Work Phone: Payers Date Payer Category Payer Medicare (Managed Care) FELY KIM [id number] 2022 Self-pay [id number] 2021 Medicaid MEDICAID [facility] [id number] 1959 Medicaid [id number] 1957 Medicare [id number] 1942 Unknown [id number]. 593 1942 Unknown [id number] [id number]. 593 1942 Unknown [id number]. 593 1942 Unknown [id number] [id number]. 1259 1942 Unknown [id number] [id number]. 1259 1942 Unknown [id number] [id number]. 1259 Medicare [id number] Medicare Medicare [id number] Unknown Unknown HCAP/HFA/FAP Active [id number] Unknown [id number] [id number]. 531 Unknown [id number] [id number]. 531 Unknown [id number] [id number]. 531 Unknown [id number] [id number]. 531 Unknown [id number] [id number]. 531 Unknown [id number] [id number]. 531 Unknown [id number]. 531 Social History Date Type Detail Facility Start: 02-01-2017 Tobacco smoking status [facility] Ex-smoker (finding) [facility] Start: 1940 Sex Assigned At Female F [facility] Start: 08-18-2022 End: 07-18-2023 Tobacco smoking status [facility] Never smoked tobacco (finding) [facility] Tobacco smoking status [facility] Tobacco smoking consumption unknown [facility] Start: 1940 Sex assigned at Not [...] tablet; Refill: 0 documented in this encounter [facility] Discharge instructions 06-30-2023 Note Date & Type Note Facility 06-30-2023 Hospital Discharg e instructions Additional Instructions Please return to emergency department for any new or worrisome symptoms including any return of abdominal pain, vomiting, fever, not not passing gas. Follow-up with your family physician within the next 3 to 5 days. Take stool softeners as directed. [facility] Work Phone: Evaluation note Note Date & Type Note Facility Evaluation note No assessment information availa ble [facility] Work Phone: Evaluation note Note Date & Type Note Facility Evaluation note Diagnosis Cat scratch of hand, right, initial encounter- Primary Cellulitis of finger of right hand documented in this encounter [facility] Healthcare Evaluation note Note Date & Type Note Facility Evaluation note Diagnosis Right hand pain- Primary Pain in soft tissues of limb Cat scratch of hand, right, initial encounter Cellulitis of right hand documented in this encounter [facility] Hospital Discharge instructions Note Date & [...] the PCP for reevaluation 5 7 days. [facility] Work Phone: Hospital Discharge instructions Note Date & Type Note Facility Hospital Discharge instructions Additional Instructions We gave you a dose of steroids to help with itching. Please try the Atarax for the itching as well as well as for anxiety. Additionally please use MiraLAX daily for your constipation. Please continue following closely with your primary care provider as well as your thermospray operator. Please return to the emergency department if you develop any worsening or concerning symptoms. [facility] Work Phone: Summary Purpose Family History Relationship [...] section and content) DATE CREATED AUTHOR 10/29/2017 [facility] DATE CREATED AUTHOR AUTHOR'S ORGANIZ ATION 12/07/2020 [facility] DATE CREATED AUTHOR AUTHOR'S ORGANIZ ATION 09/19/2022 [facility] DATE CREATED AUTHOR AUTHOR'S ORGANIZ ATION 11/13/2023 [facility] DATE CREATED AUTHOR AUTHOR'S ORGANIZ ATION 03/24/2024 [facility] EPIC Care Teams (unrecognized sec tion and content) Team Status: Active Member Role Status Dates Adela Baker NEW CAR SALESPERSON-C Primary Care Provider Active Team Status: [...] Status Dates Adela Baker NP-C Primary Care Ne meme, Attending Provider Active Start: November 09, [...] BE BASED ON THE PRIMARY CLINICAL RECORDS. [employer] provides no warranty or guarantee of the accuracy or completeness of information in this document.
[2024-11-23 18:12] LABS: Glucose Urine UA NEGATIVE (NEGATIVE)
[2024-11-23 18:17] LABS: Cast Seen? NONE SEEN #/LPF (NONE SEEN); Crystals Seen? None Seen #/HPF (None Seen); Urine Culture Indicated YES-FRMC
== END 2024-11-23 18:50 | disposition home or self-care (01) ==
PROVIDERS: Physician Assistant; Emergency Provider Emergency Medicine; PCP Nurse Practitioner Family
DX: M25.552 Pain in left hip (principal); N39.0 Urinary tract infection, site not specified; S70.02XA Contusion of left hip, initial encounter; I10 Essential (primary) hypertension; E78.5 Hyperlipidemia, unspecified; X58.XXXA Exposure to other specified factors, initial encounter
CPT/HCPCS: 73502; 73552; 81001; 81003; 87086; 87088; 87186; 99284

== ENCOUNTER 2025-03-13 23:46 | Observation (INO) | payer MEDICARE, MEDICAID, SELFPAY ==
--- OUTSIDE RECORDS SUMMARY | 2025-02-28 04:07 | XMS_ITS | Continuity of Care Document ---
Author Organization [facility] Address [address] [place] [id number] Phone Care Team Providers Care Branch Store Manager Name Role Phone Umu Garvin DDS Unavailable Unavailable Allergies, Adverse Reactions, Alerts Substance Reaction Status Criticality No Known Allergies Active No Inform ation Medications Medication Instructions Dosage Effective Dates (start - stop) Status Comments amlodipine 10 mg-benazepril 20 mg capsule take 1 capsule by oral route every day 1.00 capsule - Active simvastatin 5 mg tablet take 1 tablet (5MG) by oral route every day in the evening 5 MG - Active levothyroxine 13 mcg capsule take 1 capsule (13MCG) by oral route every day 13 MCG - Active sertraline 20 mg/mL Oral Concentrate take 2.5 milliliter (50MG) by oral route every day and mix with 4 oz. (1/2 cup) of water, [place] autumn, lemon/campo soda, lemonade or orange juice ONLY 50 MG - Active ibuprofen 200 mg capsule take 1 capsule (200MG) by oral route every 6 hours as needed 200 MG - Active Multi Vitamin 9 mg/15 mL iron Oral Liquid - Active Procedures Procedure Date Intraoral-periapical 1st Film 5 [id number] Additional Aug Oral Hygiene Instruction Limited Oral Eval Intraoral-periapical 1st Film 4 Oral Hygiene Instruction Limited Oral Eval Recement [place] Intraoral-periapical 1st Film 4 Limited Oral Eval Oral Hygiene Instruction Oral Hygiene Instruction Resin Two Surfaces Anterior Intraoral-periapical 1st Film 3 Oral Hygiene Instruction Limited Oral Eval Resin Two Surfaces Anterior Extract; Erupted Th/exposted Rt 023 Intraoral-periapical 1st Film 3 Oral Hygiene Instruction Post Op Visit Dental Resin One Surface; Anterior Oral Hygiene Instruction Resin Two Surfaces Anterior PSYTX PT&/FAMILY 60 MINUTES Resin One Surface; Anterior Oral Hygiene Instruction Nutrit Couns For Control Of Levy Dis Jan Resin Composite 2s; Posterior 2 PSYTX PT&/FAMILY 45 MINUTES PSYTX PT&/FAMILY 60 MINUTES Limited Oral Eval Intraoral-periapical 1st Film 2 Bitewig-single Film Oral Hygiene Instruction Intraoral-periapical 1st Film 2 Extract; Erupted Th/exposted Rt 022 PSYTX PT&/FAMILY 60 MINUTES Resin Composite 1s; Posterior 2 Oral Hygiene Instruction PSYTX PT&/FAMILY 60 MINUTES Extract; Erupted Th/exposted Rt 022 Oral Hygiene Instruction PSYTX PT&/FAMILY 60 MINUTES PSYTX PT&/FAMILY 60 MINUTES PSYTX PT&/FAMILY 60 MINUTES PSYTX PT&/FAMILY 60 MINUTES PSYTX PT&/FAMILY 60 MINUTES PSYTX PT&/FAMILY 45 MINUTES Nutrit Couns For Control Of Levy Dis Jun Resin Composite 2s; Posterior 2 PSYTX PT&/FAMILY 60 MINUTES Resin Three Surfaces Anterior 2 Resin Three Surfaces Anterior 2 Oral Hygiene Instruction PSYTX PT&/FAMILY 60 MINUTES Extract; Erupted Th/exposted Rt 022 Nutrit Couns For Control Of Levy Dis May PSYCH DIAGNOSTIC EVALUATION Resin 4+ W/incis Angle Anterior 021 Nutrit Couns For Control Of Levy Dis Apr Oral Hygiene Instruction Intraoral-complete Series (bw) 21 Nutrit Couns For Control Of Levy Dis Apr Comp Oral Eval New/estab Patient 2020 J&J Boster Administration J&J Covid Vaccination Oral Hygiene Instruction Amalgam 1 Surf Prim/perm Oral Hygiene Instruction Treatment Completed Oral Hygiene Instruction Amalgam 1 Surf Prim/perm Resin One Surface; Anterior Prophylaxis Adult Oral Hygiene Instruction Periodic Oral Eval Estab Patient 2017 Bitewings Four Films Resin Two Surfaces Anterior Resin One Surface; Anterior Oral Hygiene Instruction Intraoral-periapical 1st Film 8 Oral Hygiene Instruction Limited Oral Eval Periodic Oral Eval Estab Patient 2014 Bitewings-two Films Prophylaxis Adult Resin 4+ W/incis Angle Anterior 015 Resin Two Surfaces Anterior Resin One Surface; Anterior Prophylaxis Adult Oral Hygiene Instruction Intraoral-complete Series (bw) 14 Comp Oral Eval New/estab Patient 2013 Advance Directives Directive Yes / No Effective Date File Name No Information Encounters Encounter Description Practice Location Reason(s) For Visit Diagnoses Date Provider Providers Copied on Encounter [facility], [address], [place], [id number] , [place] tel:[phone] Dental Clinic No Information 5 Virgie KAY Umu. . tel:[phone] [facility], [address], [place], [id number] , [place] tel: [phone] Dental Clinic Dental limited (chief complaint) Encounter for screening for dental disordersBody mass index [BMI] 31.0-31.9, adult Aug- 5 Virgie Shea. [address] [place], [place], [id number], [place]. tel:[phone] [facility], [address] [place] [address], [id number] , [place] tel:[phone] Dental Clinic DL (chief complaint) Encounter for screening for dental disorders 0 4 Flavio JEFFERSONS Pb. [address] [place] [address], [address], [place]. tel:[phone] [facility], [address] [place] [address], [id number] , [place] tel:[phone] Dental Clinic Encounter for screening for dental disorders 4 Kannanmarcos BECK Shabbir. [address] [place], [place], [id number], [place]. tel:[phone] [facility], [address] [place] [address], [id number] , [place] tel:[phone] Dental Clinic Fill (chief complaint) Encounter for screening for dental disorders 3 Wendyak DDS Pb. [address] [place] [address], [address], [place]. tel:[phone] [facility], [address] [place] [address], [id number] , [place] tel:[phone] Dental Clinic DL (chief complaint) Encounter for screening for dental disorders 3 Mubeverlyak DDS Pb. [address] [place] [address], [address], [place]. tel:[phone] [facility], [address] [place] [address], [id number] , [place] tel: [phone] Dental Clinic Ext (chief complaint) Encounter for screening for dental disorders 3 Mubarsonja DDS Pb. [address] [place] [address], [address], [place]. tel:[phone] [facility], [address] [place] [address], [id number] , [place] tel:[phone] Dental Clinic DL (chief complaint) Encounter for screening for dental disorders 3 Mubarak DDS Pb. [address] [place] [address], [address], [place]. tel:[phone] [facility], [address] [place] [address], [id number] , [place] tel: [phone] Dental Clinic Fill (chief complaint) Encounter for screening for dental disorders 2 Mulynn DDS Pb. [address] [place] [address], [address], [place]. tel:[phone] PSYTX PT&/FAMILY 60 MINUTES [facility], [address] [place] [address], [id number] , [place] tel:[phone] [facility], unspecified 2 Baus Psy D Geovany. [address] [place] [address], [address], [place]. tel:[phone] [facility], [address] [place] [address], [id number] , [place] tel:[phone] Dental Clinic Filling (chief complaint) Encounter for screening for dental disorders 2 Mubarak DDS Pb. [address] [place] [address], [address], [place]. tel:[phone] [facility], [address] [place] [address], [id number] , [place] tel:[phone] Dental Clinic filling (chief complaint) Encounter for screening for dental disorders 2 Mubarak DDS Pb. [address] [place] [address], [address], [place]. tel:[phone] PSYTX PT&/FAMILY 45 MINUTES [facility], [address], [place], [id number] , [place] tel: [phone] Behavorial Health Depression, unspecified Sep-2 2 Baus Psy D Shealynne. [address] [place], [address], [place]. tel:[phone] PSYTX PT&/FAMILY 60 MINUTES [facility], [address], [place], [id number] , [place] tel: [phone] Behavorial Health Depression, unspecified Sep-0 2 Baus Psy D Shealynne. [address] [place], [address], [place]. tel:[phone] [facility], [address] [place] [address], [id number] , [place] tel: [phone] Dental Clinic de (chief complaint) Encounter for screening for dental disorders Dec-2 2 Virgie DDS Umu. . tel:[phone] [facility], [address] [place] [address], [id number] , [place] tel: [phone] Dental Clinic Dental limited (chief complaint) Encounter for screening for dental disordersDenta l caries on smooth surface penetrating into pulp 0 2 Flavio DDS Pb. [address] [place], [address], [place]. tel:[phone] PSYTX PT&/FAMILY 60 MINUTES [facility], [address] [place] [address], [id number] , [place] tel: [phone] Behavorial Health Depression, unspecified Dec-0 2 Baus Psy D Shealynne. [address] [place] [address], [address], [place]. tel:[phone] [facility], [address] [place] [address], [id number] , [place] tel: [phone] Dental Clinic filling (chief complaint) Encounter [facility] disorders 2 [facility] [address] [place], [address], [place]. tel:[phone] PSYTX PT&/FAMILY 60 MINUTES [facility], [address], [place], [id number] , [place] tel: [phone] Behavorial Health Depression, unspecified 2 Baus Psy D Shealynne. [address] [place], [address], [place]. tel:[phone] [facility], [address], [place], [id number] , [place] tel: [phone] Dental Clinic extraction (chief complaint) Encounter for screening for dental disorders 2 [facility] D[facility] Pb. [address] [place], [address], [place]. tel:[phone] PSYTX PT&/FAMILY 60 MINUTES [facility], [address], [place], [id number] , [place] tel: [phone] Behavorial Health Depression, unspecified 2 Baus Psy D Shealynne. [address] [place], [address], [place]. tel:[phone] PSYTX PT&/FAMILY 60 MINUTES [facility], [address], [place], [id number] , [place] tel: [phone] Behavorial Health Depression, unspecified 2 Baus Psy D Shealynne. [address] [place], [address], [place]. tel:[phone] PSYTX PT&/FAMILY 60 MINUTES [facility], [address], [place], [id number] , [place] tel:[phone] Behavorial Health Depression, unspecified 2 Baus Psy D Shealynne. [address] [place], [address], [place]. tel:[phone] PSYTX PT&/FAMILY 60 MINUTES [facility], [address], [place], [id number] , [place] tel: [phone] Behavorial Health Depression, unspecified Apr-0 2 Baus Psy D Shealynne. [address] [place], [address], [place]. tel:[phone] PSYTX PT&/FAMILY 60 MINUTES [facility], [address], [place], [id number] , [place] tel: [phone] Behavorial Health Depression, unspecified Mar-2 2 Baus Psy D Shealynne. [address] [place], [address], [place]. tel:[phone] PSYTX PT&/FAMILY 45 MINUTES [facility], [address] [place] [address], [id number] , [place] tel: [phone] Behavorial Health Depression, unspecified Mar-0 2 Baus Psy D Shealynne. [address] [place], [address], [place]. tel:[phone] [facility], [address] [place] [address], [id number] , [place] tel: [phone] Dental Clinic filling (chief complaint) Encounter for screening for dental disorders 2 Mann Marrero. [address] [place] [address], [address], [place]. tel:[phone] PSYTX PT&/FAMILY 60 MINUTES [facility], [address], [place], [id number] , [place] tel: [phone] Behavorial Health Depression, unspecified 2 Baus Psy D Shealynne. [address] [place], [address], [place]. tel:[phone] [facility], [address] [place] [address], [id number] , [place] tel: [phone] Dental Clinic Filling (chief complaint) Encounter for screening for dental disorders 2 Antoine BECK Michelle. [address], [place], [id number], [place]. tel:[phone] PSYTX PT&/FAMILY 60 MINUTES [facility], [address], [place], [id number] , [place] tel: [phone] Behavorial Health Depression, unspecified 2 Baus Psy D Shealynne. [address] [place], [address], [place]. tel:[phone] [facility], [address] [place] [address], [id number] , [place] tel: [phone] Dental Clinic EXT (chief complaint) Encounter for screening for dental disorders 2 Mann Marrero. [address] [place], [address], [place]. tel:[phone] PSYCH DIAGNOSTIC EVALUATION [facility], [address] [place] [address], [id number] , [place] tel: [phone] Behavorial Health Depression, unspecified 2 Baus Psy D Shealynne. [address] [place], [address], [place]. tel:[phone] [facility], [address] [place] [address], [id number] , [place] tel: [phone] Dental Clinic Filling (chief complaint) Encounter for screening for dental disorders 1 Mann Marrero. [address] [place], [address], [place]. tel:[phone] [facility], [address] [place] [address], [id number] , [place] tel:[phone] COVID [facility] No Information 1 Rosalina Carrion. [address], [place], [id number], [place]. tel:[phone] [facility], [address] [place] [address], [id number] , [place] tel: [phone] Dental Clinic D EMG (chief complaint) Encounter for screening for dental disorders 1 Mann Marrero. [address] [place], [address], [place]. tel:[phone] [facility], [address], [place], [id number] , [place] tel: [phone] Dental Clinic filling (chief complaint) Encounter for screening for dental disorders 0 3- 8 Vahid Bright. [address] [place], [place], [id number], [place]. tel:[phone] [facility], [address], [place], [id number] , [place] tel: [phone] Dental Clinic filling (chief complaint) Encounter for screening for dental disorders 2- 8 Vahid Bright. [address] [place], [place], [id number], [place]. tel:[phone] [facility], [address], [place], [id number] , [place] tel: [phone] Dental Clinic prophy (chief complaint) Encounter for screening for dental disorders 8 Isak winter DMD Sushaen. [address] [place], [address], [place]. tel:[phone] [facility], [address], [place], [id number] , [place] tel: [phone] Dental Clinic filling (chief complaint) Encounter for screening for dental disorders 8 Vahid Bright. [address] [place], [id number], [place]. tel:[phone] [facility], [address], [place], [id number] , [place] tel: [phone] Dental Clinic dental limited (chief complaint) Encounter for screening for dental disorders 8 Isak winter DMD Sushaen. [address] [place], [address], [place]. tel:[phone] [facility], [address], [place], [id number] , [place] tel: [phone] Dental Clinic Dental examination 6-201 5 [facility] August. [address], [place], [id number], [place]. tel:[phone] [facility], [address] [place] [address], [id number] , tel: [phone] Dental Clinic Dental examination 8 5 [facility] August. [address], [place], [id number], [place]. tel:[phone] [facility], [address] [place] [address], [id number] , [place] tel: [phone] Dental Clinic Dental examination 0-201 4 [facility] August. [address], [place], [id number], [place]. tel:[phone] [facility], [address] [place] [address], [id number] , [place] tel: [phone] Dental Clinic Dental examination 5- 4 [facility] August. [address], [place], [id number], [place]. tel:[phone] [facility], [address] [place] [address], [id number] , [place] tel: [phone] Dental Clinic Dental examination 9- 4 [facility] August. [address], [place], [id number], [place]. tel:[phone] Family History Family Member Type Diagnosis Age At Onset Mother Problem (finding) Father Problem (finding) Father Problem (finding) cancer of colon Mother Problem (finding) malignant neoplasm of c ervix uteri Immunizations Vaccine Date Status Comments Clarence COVID administered Source: New munization Record Payers Payer name Insurance type Covered constitution party ID Pradip contreras(s) D [facility] ([employer]) CI [id number] D Medicaid Crossover [id number] [employer] Advantage [id number] Social History Type Description Quantity Date Captured Comments Sex Female Smoking Status No Information Sexual Orientation Straight or heterosexual Jan Gender Identity Female Chief Complaint And Reason For Visit No Information Reason For Referral Reason For Referral No Information Plan Of Treatment Date Type Action Status Goal Tdap Vaccine. Due on 2024 due Goal Influenza vaccine. Due on Ap due Goal PRAPARE ASSESSMENT. Due on A due Goal Zoster vaccine (). Due on due Goal Unhealthy drug use screening . Due on due Goal Tdap. Due on due Goal Depression screening. Due on due Goal Hep A. Due on du e Goal Dietary management education , guidance, and counseling completed Goal Dietary management education , guidance, and counseling completed Goal Hep A. Due on du e Goal Depression screening. Due on due Goal Tdap Vaccine. Due on 2023 due Goal Unhealthy drug use screening . Due on due Goal Tdap. Due on due Goal Zoster vaccine (). Due on due Goal Influenza vaccine. Due on due Goal PRAPARE ASSESSMENT. Due on A due Goal Tdap. Due on due Goal PRAPARE ASSESSMENT. Due on due Goal Tdap Vaccine. Due on 2022 due Goal Influenza vaccine. Due on due Goal Depression screening. Due on due Goal Zoster vaccine (1st). Due on due Goal Hep A. Due on du e Goal Tdap. Due on due Goal Tdap Vaccine. Due on 2022 due Goal PRAPARE ASSESSMENT. Due on due Goal Influenza vaccine. Due on due Goal Depression screening. Due on due Goal Zoster vaccine (1st). Due on due Goal Tdap. Due on due Goal Zoster vaccine (). Due on due Goal Tdap Vaccine. Due on 2022 due Goal Influenza vaccine. Due on due Goal PRAPARE ASSESSMENT. Due on due Goal Depression screening. Due on due Goal Depression screening. Due on due Goal Influenza vaccine. Due on due Goal Tdap. Due on due Goal PRAPARE ASSESSMENT. Due on due Goal Zoster vaccine (1st). Due on due Goal Influenza vaccine. Due on due Goal Depression screening. Due on due Goal Zoster vaccine (1st). Due on due Goal Tdap. Due on due Goal PRAPARE ASSESSMENT. Due on due Goal Tdap. Due on due Goal Influenza vaccine. Due on Oc t due Goal Depression screening. Due on due Goal Zoster vaccine (1st). Due on due Goal PRAPARE ASSESSMENT. Due on O ct due Goal Depression screening. Due on due Goal Zoster vaccine (1st). Due on due Goal Tdap. Due on due Goal Influenza vaccine. Due on Oc due Goal PRAPARE ASSESSMENT. Due on O due Goal Depression screening. Due on due Goal Influenza vaccine. Due on Se due Goal Tdap. Due on due Goal PRAPARE ASSESSMENT. Due on S ep due Goal Zoster vaccine (1st). Due on due Goal Depression screening. Due on due Goal Zoster vaccine (1st). Due on due Goal PRAPARE ASSESSMENT. Due on S ep due Goal Influenza vaccine. Due on Se p due Goal Tdap. Due on due Goal Tdap. Due on due Goal Zoster vaccine (1st). Due on due Goal Depression screening. Due on due Goal Influenza vaccine. Due on Se p due Goal PRAPARE ASSESSMENT. Due on S ep due Goal Depression screening. Due on due Goal Zoster vaccine (1st). Due on due Goal Influenza vaccine. Due on due Goal Tdap. Due on due Goal PRAPARE ASSESSMENT. Due on A due Goal Depression screening. Due on due Goal PRAPARE ASSESSMENT. Due on A due Goal Influenza vaccine. Due on due Goal Tdap. Due on due Goal Zoster vaccine (1st). Due on due Goal Depression screening. Due on due Goal Influenza vaccine. Due on due Goal Zoster vaccine (1st). Due on due Goal Tdap. Due on due Goal Depression screening. Due on due Goal Zoster vaccine (1st). Due on due Goal Tdap. Due on due Goal Influenza vaccine. Due on due Goal Tdap. Due on due Goal Influenza vaccine. Due on due Goal Zoster vaccine (1st). Due on due Goal Depression screening. Due on due Goal Influenza vaccine. Due on due Goal Zoster vaccine (1st). Due on due Goal Tdap. Due on due Goal Depression screening. Due on due Goal Tdap. Due on due Goal Influenza vaccine. Due on due Goal Zoster vaccine (1st). Due on due Goal Depression screening. Due on due History Of Present Illness Encounter Date Complaint History Of Prese nt Illness Dental limited DL DL DL Fill DL DL Ext DL DL Fill Filling Continue with tr eatment filling de de Dental limited Dental limited, EMERGENCY, UL, Pain level 3 filling filling extraction extraction filling filling Filling Continue with tr eatment EXT EXT Filling Filling D EMG D EMG filling filling filling filling prophy filling filling continue with treatment dental limited dental limited. Patient said she has a cavity that she would like fixed. Functional Status Date Functional Assessmen t No Information Instructions Date Instruction Additional Infor mation Dietary management e ducation, guidance, and counseling Related to Body mass index [BMI] 31.0-31.9, adult Dietary management e ducation, guidance, and counseling Related to Body mass index [BMI] 31.0-31.9, adult Assessments Type Assessment Date No Information Patient Care Teams Name Effective Dates (start - stop) Status Members No Information
--- OUTSIDE RECORDS SUMMARY | 2025-03-03 14:00 | XMS_ITS | Encounter Summary ---
Author Organization [facility] Address [address] [place] [address] Care Team Providers Care Extension Service Advisor Name Role Phone Kalen Blankenship DO Primary Care Provider [phone] Reason for Visit * ReasonCommentsNew Patient Encounter Details DateTypeDepartmentCare Team (Latest Contact Info)Uecfulhtycu83/23/2025 3:00 PM EDTOffice Visit [facility] [address] [facility] [address] [place] [id number] Kalen Blankenship DO [address] [facility] [address] [place], [place] [id number] Disorder of thyroid gland (Primary Dx); Mixed incontinence; Mixed anxiety and depressive disorder; Mixed hyperlipidemia; Primary osteoarthritis, unspecified site Social History Tobacco UseTypesPacks/DayYears UsedDateSmoking Tobacco: NeverSmokeless Tobacco: Never Tobacco Cessation:Counseling Given: Yes PHQ-2AnswerDate RecordedPatient Health Questionnaire-2 Ayujn500 CommentsUnknownSex and Gender InformationValueDate RecordedSex Assigned at Not on fileLegal DwjGglgca76/15/2023 6:50 PM EDTGender IdentityNot on fileSexual OrientationNot on filedocumented as of this encounter Last Filed Vital Signs Vital SignReadingTime TakenCommentsBlood Ttqesofz308/7210 2:48 PM EDT Nlzys057403/03/2025 2:48 PM RWGTfdddczerdx80 ??C (98.6 ??F)03/03/2025 2:48 PM EDT Respiratory Rate--Oxygen Fehbrvncbh42%03/03/2025 2:48 PM EDTInhaled Oxygen Concentration--Juqvup50 kg (205 lb)03/03/2025 2:48 PM KBDVwmtnz606.3 cm (4' 10 ) 03/03/2025 2:48 PM EDTBody Mass Index42.8503/03/2025 2:48 PM EDTdocumented in this encounter Functional Status * Over the past 2 weeks, how often have you been bothered by any of the following problems?QuestionAnswerDate of AssessmentAuthorLittle interest or pleasure in doing thingsNot at all03/03/2025 3:04 PM Francoise Dewitt MA Feeling down, depressed, or hopelessNot at all03/03/2025 3:04 PM Francoise Dewitt, MAPatient Health Questionnaire-2 Couok491 3:04 PM Francoise Dewitt MA documented as of this encounter Progress Notes * Kalen Blankenship, DO - 03/03/2025 3:00 PM EDT Images from the original note were not included. [facility] [place] SUBJECTIVE: HPI: Marcus Andersen is a 84 y.o. female who presents with chief complaint of New Patient Pt presents to become established. Prior PCP Dr. Kerr. Pt does not remember if she had her MAWV.Pt notes that she is not able to sleep, she is having some SOB with exercise. Pt's last set of labswas several months ago. I have reviewed and reconciled the history and medication list with the patient today. History of Present Illness The patient presents to establish care, accompanied by her sister. Chronic Insomnia - The last instance of restful sleep occurred a few years ago post-surgery. - Sleep pattern involves intermittent dozing and waking, leading to daytime fatigue. - Concerned about driving due to persistent tiredness. - Prescribed sleep aids have been ineffective. - Has used tcyu-nbz-qyamtta energy pills (2-3 as needed) and seeks advice on their use. Dental Issues - Dental issues limit her dietary intake, particularly of meat. - Diet consists mainly of scrambled eggs and macaroni and cheese. - Has eliminated soda, now consuming sparkling water and Equate. Blood work was done several weeks ago at [facility]. Her daughter manages her medication regimen, and she does not take any medications during the day. She is not under specialist care. A nurse visits weekly to monitor her vital signs, which have been normal. She is on medication for thyroid, blood pressure, and cholesterol management, and takes vitamins. MEDICATIONS - Thyroid - Blood Pressure (morning) - Cholesterol (night) - Vitamin Depression: Not at risk (03/03/2025) PHQ-2 PHQ-2 Score: 0 reports that she has never smoked. She has never used smokeless tobacco. She reports that she does not use drugs. OBJECTIVE: 01/12/2019 12:00 PM 02/02/2019 12:00 PM 03/06/2020 12:00 PM 03/18/2024 7:54 PM 03/19/2024 9:30 AM 03/03/2025 2:48 PM Vitals BMI 38.04 kg/m2 38.04 kg/m2 36.78 kg/m2 36.99 kg/m2 36.99 kg/m2 42.85 kg/m2 BSA (m2) 1.84 m2 1.84 m2 1.81 m2 1.81 m2 1.81 m2 1.95 m2 Systolic 125 134 132 128 Diastolic 75 78 96 72 Heart Rate 84 71 68 SpO2 97 % 96 % 96 % Temp 98.7 ??F 98.4 ??F 98.6 ??F Height (in) 4' 10 4' 10 4' 10 4' 10 Weight (lb) 182 182 176 177 177 205 Visit Report Report Report Report Physical Exam Physical Exam General Appearance: Alert, no distress. Vital signs: BP normal. Pulse slightly low. Respiratory: No respiratory distress, normal work of breathing. CTA bilat without wheezes or ronchi. Cardiovascular: RRR, no murmurs. Skin: Warm and dry, no rash. Neurological: Normal. Psychiatric: normal affect, normal thought content. Results No results found for this or any previous visit (from the past 4 weeks). ASSESSMENT AND PLAN: Assessment/Plan Diagnoses and all orders for this visit: Disorder of thyroid gland Mixed incontinence Mixed anxiety and depressive disorder Mixed hyperlipidemia Primary osteoarthritis, unspecified site Assessment & Plan 1. Insomnia: Chronic. - Bring all current medications, including OTC supplements, to the next appointment for review. - Review effectiveness of current sleep medications. 2. Fatigue. - Review recent blood work results from Dr. Islas's office to rule out underlying conditions. - Assess dietary limitations due to dental issues. 3. Medication Management. - Bring all current medications to the next appointment for comprehensive review. - Provided records request form to facilitate acquisition of medical records from Dr. Islas's office. Follow-up - Follow up in a few weeks. Kalen Blankenship DO Problem List[1] Medical History[2] [1] Patient Active Problem List Diagnosis Abdominal pain Acute gouty arthritis Arthritis Osteoarthritis Acute thoracic myofascial strain Adjustment disorder with depressed mood Anorexia Anxiety Burning mouth syndrome Cat scratch Cellulitis Cervical disc disorder Chest wall pain Cervical spondylosis Chronic constipation Constipation Difficulty sleeping Disease due to severe acute respiratory syndrome coronavirus 2 (SARS-CoV-2) Disorder of thyroid gland Diverticular disease of colon Fatigue Fecal impaction (HCC) Female cystocele Disorder of bladder Gastroesophageal reflux disease History of endocrine disorder History of fall Hyperlipidemia Insomnia Itching Mixed anxiety and depressive disorder Mixed incontinence Obstructive sleep apnea Other specified cough Other specified health status Overweight Parageusia Paresthesia Rash and nonspecific skin eruption Restless legs Restlessness Shoulder joint pain Urinary tract infection [2] Past Medical History: Diagnosis Date Disease of thyroid gland Hyperlipidemia Hypertension documented in this encounter Plan of Treatment Not on file documented as of this encounter Visit Diagnoses Diagnosis Disorder of thyroid gland- Primary Unspecified disorder of thyroid Mixed incontinence Mixed incontinence urge and stress (male)(female) 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
[2025-03-13 23:51] VITALS: BP 144/93; PULSE 69; TEMP 36.8; O2SAT 97
--- OUTSIDE RECORDS SUMMARY | 2025-03-13 23:55 | XMS_ITS | CCD ---
Author Organization [facility] CliniSyde Care Team Providers Care Top Collar Baster Name Role Phone PHYSICIAN, DEFAULT Unavailable Unavailable PHYSICIAN, DEFAULT Unavailable Unavailable PHYSICIAN, DEFAULT Unavailable Unavailable PHYSICIAN, DEFAULT Unavailable Unavailable RAMINENI, GONZALEZ K Unavailable Unavailable RAMINENI, GONZALEZ K Unavailable Unavailable UNKNOWN, PHYSICIAN Unavailable Unavailable UNKNOWN, PHYSICIAN Unavailable Unavailable RAMINENI, GONZALEZ K Unavailable Unavailable RAMINENI, GONZALEZ K Unavailable Unavailable UNKNOWN, PHYSICIAN Unavailable Unavailable UNKNOWN, PHYSICIAN Unavailable Unavailable [place] Unavailable Unavailable RAMINENI, GONZALEZ K Unavailable Unavailable [...] HENRY Consulting Unavailable OLIVIA, ADELA Admitting Unavailable OLIVIA, ADELA Attending Unavailable OLIVIA, ADELA Consulting Unavailable OLIVIA, ADELA Primary Care Unavailable DR ALISA ORELLANA Attending Unavailable BLANCA MCCORMICK Consulting Unavailab whit BAKER ADELA Primary Care Unavailable DR ALISA ORELLANA Admitting Unavailable HECTOR GONZALEZ Consulting Unavailable LAURA Baker Belkys Primary Care Provider DO Juan Henao Emergency Provider LAURA Baker Primary Care Provider [phone] DO Jay Carvajal Emergency Provider DO Juan Bruno M Emergency Provider LAURA Baker Primary Care Provider Juliano Juan M Emergency Provider [phone] DO Camille Dennison Emergency Provider MD Carine Montoya Attending Provider LAURA Baker Belkys Primary Care Provider [phone] MD Ashleigh Jackson Emergency Provider LAURA Baker Belkys Primary Care Provider [phone] LAURA Baker Attending Provider Unavailable Primary Care Provider UnavailGay Wallace PA-C Attending Provider [phone] Gay Casrtejon Attending Unavailable Gay Castrejon Admitting Unavailable Umu Garvin DDS Attending Unavailable Darian Blankenship DO Primary Care Provider DARIAN BLANKENSHIP Attending Unavailable ELISABETHMOE ERWIN Attending Unavailable ELISABETH, MOE L Attending Unavailable ELISABETH MOE L Referring Unavailable Allergies Allergy ClassificationReported Allergen(s)Allergy TypeDate of OnsetReaction(s) Facility (1 source)NO KNOWN DRUG ALLERGIES; Translations: [NO KNOWN DRUG ALLERGIES] Propensity to adverse reactions (disorder)[id number] [facility] (1 source)No Known Allergies; Translations: [No Known Allergies]Propensity to adverse reactions (disorder)[facility] (16 sources)oxyCODONE; Translations: [oxycodone]Drug Gtgzwpt47-40-8769 [facility] (1 source)Acetaminophen / oxyCODONEDrug AllergyThe [facility] Medications Current Medications MedicationDrug Class(es)DatesSig (Normalized)Sig (Original)amLODIPine 5 mg oral tablet (10 sources)Dihydropyridine Calcium Channel BlockeramLODIPine (Norvasc) 5 MG tablet Activecitalopram 10 mg oral tablet (4 sources)Serotonin Reuptake InhibitorStart: 48-34-2413qxopbcdbin (CeleXA) 10 MG tablet 1 (one) time each day at the same time 03/30/2024 Activedocusate sodium 100 mg oral capsule (11 sources)Start: 06-42-0975hnaj 1 capsule by mouth twice dailyDULoxetine 60 mg delayed release oral capsule (9 sources)Serotonin and Norepinephrine Reuptake InhibitorStart: 10-23-3491ytod 1 capsule by mouth once dailyhydrOXYzine hydrochloride 25 mg oral tablet (20 sources)AntihistamineStart: 75-81-2071qpdpHQXnzcy HCl (Atarax) 25 MG tablet 01/17/2025 ActiveStart: 04-56-2372fckn 1 capsule by mouth twice daily as needed hydrOXYzine pamoate (Vistaril) 25 MG capsule TAKE 1 CAPSULE BY MOUTH TWICE DAILY NEEDED 06/23/2024 ActiveStart: 08-11-2023 End: 19-28-9603iwtr 1-2 tablets by mouth once daily at bedtimehydrOXYzine HCl (Atarax) 10 MG tablet TAKE 1 TO 2 TABLETS BY MOUTH EVERY DAY AT BEDTIME FOR JUQXGUF0208/11/2023 03/03/2025 DiscontinuedStart: 40-67-0440txwz 1 tablet by mouth every eight hours as neededlevothyroxine sodium 0.112 mg oral tablet (20 sources)l-ThyroxineStart: 69-22-1470Tudcpsfus 112 MCG tablet 01/09/2025 ActiveStart: 61-55-7947ikcu 1 tablet by mouth once daily in the morning levothyroxine (Synthroid, Levoxyl) 100 MCG tablet TAKE 1 TABLET BY MOUTH ONCE DAILY IN THE MORNING ON AN EMPTY STOMACH 01/13/2024 ActiveStart: 16-29-7696feab 1 tablet by mouth once dailymeloxicam 15 mg oral tablet (9 sources)Nonsteroidal Anti-inflammatory DrugStart: 34-72-7705sama 1 tablet by mouth once dailyMineral Oil (5 sources)Start: 40-47-5710yqmp 1 mL by mouth once dailyMineral Oil Active 15 ML PO Daily 1200 December 15, 2022 11:00pmStart: 27-71-6419vpkq 1 mL by mouth once dailyMineral Oil Active 15 ML PO Daily 1200 December 16, 2022 12:00am Mineral Oil oil (1 source)Start: 58-52-9226yelx 1 mL by mouth once daily as needed for constipationMultiple Vitamin (Multi-Vitamin) tablet (4 sources)take 1 tablet by mouth in the morningMultiple Vitamin (Multi-Vitamin) tablet Take 1 tablet by mouth in the morning. Activepolyethylene glycol 3350 24278 mg powder for oral solution (20 sources)Osmotic LaxativeStart: 07-93-1553eqnfubpx 400 mg oral capsule (1 source)Start: 81-39-7351Ipdooabe Husk (Metamucil) 0.4 gram capsule (7 sources)Start: 19-70-8758Xzpsuxsd Husk (Metamucil) 0.4 gram capsule Active 0.4 GM PO Daily August 17, 2022 11:00pmStart: 95-56-0455Mtdptgtk Husk (Metamucil) 0.4 gram capsule Active 0.4 GM PO Daily August 18, 2022 12:00amSennosides (Senna) 8.6 mg capsule (2 sources)Start: 44-59-7929albd 1 capsule by mouth twice dailySennosides (Senna) 8.6 mg capsule Active 8.6 MG PO Twice daily 22 11June 30, 2023 1:00amStart: 62-67-7315vhrp 1 capsule by mouth twice dailySennosides (Senna) 8.6 mg capsule Active 8.6 MG PO Twice daily 22 11June 30, 2023 12:00am sennosides, penitentiary 8.6 mg oral capsule (1 source)Start: 09-03-9236ayru 1 capsule by mouth twice daily as needed for constipationsertraline 100 mg oral tablet (10 sources)Serotonin Reuptake Inhibitorsertraline (Zoloft) 100 MG tablet Active simvastatin 20 mg oral tablet (20 sources)HMG-CoA Reductase InhibitorStart: 61-30-9586dnsfsqfkgfm (Zocor) 20 MG tablet 02/07/2025 ActiveStart: 01-20-2017 End: 19-66-6198ckhs 1 tablet by mouth once dailytemazepam 7.5 mg oral capsule (4 sources)BenzodiazepineStart: 57-31-9935eucogtqel (Restoril) 7.5 MG capsule 1 (one) time each day at the same time 03/30/2024 ActivetraMADol hydrochloride 50 mg oral tablet (9 sources)Opioid AgonistStart: 06-41-8217Pfvkt: 22-73-5411Egllotog Active 0.5 TAB PO EVERY 1-4 HOURS January 20, 2017 12:00amtraZODone hydrochloride 50 mg oral tablet (4 sources)Serotonin Reuptake InhibitorStart: 38-19-3951wcyGFQisb (Desyrel) 50 MG tablet 1 (one) time each day at the same time 08/17/2024 Active Completed/Discontinued Medications MedicationDrug Class(es)DatesSig (Normalized)Sig (Original)amoxicillin 875 mg / clavulanate 125 mg oral tablet (11 sources)Penicillin-class AntibacterialStart: 03-18-2024 End: 14-56-2948mvcx 1 tablet by mouth in the morningamoxicillin-clavulanate (Augmentin) 875-125 MG tablet Indications: Cellulitis of finger of right hand Take 1 tablet (875 mg) by mouth in the morning and 1 tablet (875 mg) before bedtime. Do all this for 10 days. 20 tablet 03/18/2024 03/28/2024 ExpiredStart: 78-80-3055vnzi 1 tablet by mouth twice dailybusPIRone hydrochloride 5 mg oral tablet (8 sources) End: 14-13-5460jbaq 1 tablet by mouth in the morningbusPIRone (Buspar) 5 MG tablet Take 5 mg by mouth in the morning and 5 mg in the evening. 03/03/2025 Discontinuedcolchicine 0.6 mg oral tablet (8 sources) End: 82-02-7544giwrlggouw (Colcrys) 0.6 MG tablet 03/03/2025 Discontinuedferrous sulfate 325 mg oral tablet (8 sources) End: 68-68-1255yuqs 1 tablet by mouth three times weeklyferrous sulfate 325 (65 Fe) MG tablet 1 tablet Orally Three times a Week 03/03/2025 Discontinued2 ml ketorolac tromethamine 30 mg/ml cartridge (4 sources)Nonsteroidal Anti-inflammatory Drug, Cyclooxygenase InhibitorStart: 03-19-2024 End: 64-66-2869fbyfuipxn (Toradol) injection 60 mgStart: 03-19-2024 End: 75-18-426939 mg, Intramuscular, Once, On Fri03/19/24 at 1045, For 1 dose, Age >= 65 yrs: Max daily dose: 60 mg. Max duration: 5 days total ketorolac durationStart: 03-19-2024 End: 84-32-8681wvjkdzjls (Toradol) injection 60 mgStart: 03-19-2024 End: 14-84-994396 mg, Intramuscular, Once, On Fri03/19/24 at 1045, For 1 dose, Age >= 65 yrs: Max daily dose: 60 mg. Max duration: 5 days total ketorolac durationLORazepam 0.5 mg oral tablet (8 sources)Benzodiazepine End: 36-44-9272GWQepknii (Ativan) 0.5 MG tablet 03/03/2025 Discontinued predniSONE 10 mg oral tablet (15 sources)Start: 03-19-2024 End: 28-88-9425zvwktfRMBK (Deltasone) 10 MG tablet Indications: Right hand pain Day 1-2 take 3 tablets, Day 3-4 take 2 tablets, Day 5-6 take 1 tablet PO as directed 12 tablet 03/19/2024 03/03/2025 DiscontinuedStart: 72-85-2754cbqq 3 tablets by mouth once daily at mealtimeStart: 92-76-7580pmfg 60 mg by mouth once daily at mealtimePrednisone Active 60 MG PO Daily 15 February 01, 2017 12:00am administer with food or milk Problems Active Problems Problem ClassificationProblemDateDocumented DateEpisodic/ChronicAbdominal pain (4 sources)Abdominal pain; Translations: [Unspecified abdominal pain]Onset: 157549-74-3906WyexuuenVhtexxdvwt disorders (4 sources)Adjustment disorder with depressed mood; Translations: [Adjustment disorder with depressed mood]Onset: 290341-44-0444InmxrihVcfsrrl disorders (15 sources)Anxiety; Translations: [Anxiety disorder, unspecified]Onset: 402152-26-5921VqsmulrZqjbhooc of mouth; excluding dental (4 sources)Burning mouth syndrome ; Translations: [Glossodynia]Onset: 03-03-2025 85-59-8156KlkpzfvcMxntjjwyp of lipid metabolism (7 sources)Hyperlipidemia, unspecified; Translations: [Hyperlipidemia]Onset: 770235-89-1919HnimcfiKthhkmiybdpiiq and diverticulitis (4 sources)Diverticulosis of colon; Translations: [Diverticulosis of large intestine without perforation or abscess without bleeding]Onset: 03-03-2025 18-41-0850PvearthA Codes: Natural/environment (4 sources)Cat scratch - wound; Translations: [Scratched by cat, initial encounter]Onset: 248869-60-2496IoupmjvlSjdxxkvroi disorders (4 sources)Gastroesophageal reflux disease; Translations: [Gastro-esophageal reflux disease without esophagitis]Onset: 062262-65-7163KqaxfncIxhathtvv hypertension (1 source)Essential (primary) hypertension; Translations: [ESSENTIAL (PRIMARY) HYPERTENSION]Onset: 04-10-5235YjdufhiChmqlocstehnm symptoms and ill-defined conditions (6 sources)Incontinence; Translations: [Mixed incontinence]Onset: 03-03-2025 13-71-2082EwwfbbaFign and other crystal arthropathies (13 sources)Articular gout; 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, unspecified]Onset: 03-03-2025 06-56-2915GouxwimLjvlwpgtgr obstruction without hernia (19 sources)Fecal impaction; Translations: [Fecal impaction]Onset: 07-22-2022 08-47-9492PewholctHrfacrn and fatigue (4 sources)Fatigue; Translations: [Other fatigue]Onset: EpisodicMenopausal disorders (1 source)Hormone replacement therapy; Translations: [HORMONE REPLACEMENT THERAPY]Onset: 97-99-6963HfdyprbjAfbnlhzzwpy chest pain (4 sources)Chest wall pain; Translations: [Other chest pain]Onset: 03-03-2025 14-52-0647ComicgslCotawfdwkfhlgw (13 sources)Primary osteoarthritis, right shoulder; Translations: [Arthritis] Onset: 743708-06-6434HriheqfTtngu aftercare (1 source)Other detention (current) drug therapy; Translations: [OTH FRY COOK CURRENT DRUG THERAPY]Onset: 49-51-2581NyvsuzgmSdexv bone disease and musculoskeletal deformities (1 source)Other osteonecrosis, right shoulder; Translations: [OTHER OSTEONECROSIS, RIGHT SHOULDER]Onset: 56-80-6594FiynxrjDmspm connective tissue disease (1 source)Presence of right artificial shoulder joint; Translations: [PRESENCE OF RIGHT ARTIFICIAL SHOULDER JOINT]Onset: 17-83-4638AkfaodsQiqpu connective tissue disease (2 sources)Pain in right hand; Translations: [Pain in right hand]03-19-2024 EpisodicOther diseases of bladder and urethra (4 sources)Disorder of bladder; Translations: [Bladder disorder, unspecified] Onset: 793938-71-1585QgqyoeoPefwv gastrointestinal disorders (20 sources)Constipation; Translations: [Constipation, unspecified]Onset: 911967-73-5557MdxgawgsNwivm gastrointestinal disorders (4 sources)Constipation, unspecified; Translations: [CONSTIPATION UNSPECIFIED] Onset: 93-59-4082PjssuhgnLqtkh gastrointestinal disorders (9 sources)Chronic constipation; Translations: [Other constipation]Onset: 552646-71-4713JpgpcxumCgvwp hereditary and degenerative nervous system conditions (4 sources)Restless legs; Translations: [Restless legs syndrome]Onset: 589319-00-8799EcpemvrJnvse inflammatory condition of skin (9 sources)Itching ; Translations: [Pruritus, unspecified]Onset: 03-03-2025 63-17-8162LfupudiiNuaxj injuries and conditions due to external causes (4 sources)History of fall; Translations: [History of falling]Onset: 03-03-2025 80-66-4787VixfdbvaLysla lower respiratory disease (4 sources)Cough; Translations: [Other specified cough]Onset: 03-03-2025 22-27-9906GfvaeffkMrzsx nervous system disorders (4 sources)Taste sense altered; Translations: [Parageusia]Onset: 03-03-2025 52-80-3663PbnlzedmXheiv nervous system disorders (4 sources)Paresthesia; Translations: [Paresthesia of skin]Onset: 03-03-2025 36-31-2072WjprwndcVynwb non-traumatic joint disorders (4 sources)Shoulder joint pain; Translations: [Pain in unspecified shoulder] Onset: 396692-24-1709AisbxatmPvtje nutritional; endocrine; and metabolic disorders (4 sources)Loss of appetite; Translations: [Anorexia]Onset: EpisodicOther nutritional; endocrine; and metabolic disorders (4 sources)H/O: endocrine disorder; Translations: [Personal history of other endocrine, nutritional and metabolic disease]Onset: 229538-72-6792Mdjlkczr Other nutritional; endocrine; and metabolic disorders (4 sources)Overweight; Translations: [Overweight]Onset: EpisodicOther skin disorders (9 sources)Eruption; Translations: [Rash and other nonspecific skin eruption] Onset: 866807-20-1758PwkairngMsgaradt of female genital organs (4 sources)Cystocele; Translations: [Cystocele, unspecified]Onset: 03-03-2025 72-12-3472QgzucrgYskxmuyf codes; unclassified (4 sources)Obstructive sleep apnea syndrome; Translations: [Obstructive sleep apnea (adult) (pediatric)]Onset: 844244-38-7854PnecckgCbcoqolq codes; unclassified (4 sources)Restlessness; Translations: [Restlessness and agitation]Onset: 920302-05-5612YcubjffYrylhibf codes; unclassified (9 sources)Difficulty sleeping ; Translations: [Sleep disorder, unspecified] Onset: 949097-37-8165BymcmjphTzmtwaok codes; unclassified (4 sources)Insomnia; Translations: [Insomnia, unspecified]Onset: 03-03-2025 02-38-8542FpsjfzevVzptqzej codes; unclassified (4 sources)Other specified health status; Translations: [Other specified conditions influencing health status]Onset: 997692-46-0433OwaqemxyBxfc and subcutaneous tissue infections (15 sources)Cellulitis; Translations: [Cellulitis, unspecified]Onset: 03-03-2025 90-36-7422LxziowstFtdprrkrdmp; intervertebral disc disorders; other back problems (8 sources)Cervical disc disorder; Translations: [Cervical disc disorder, unspecified, unspecified cervical region]Onset: hronic Sprains and strains (20 sources)Strain of muscle(s) and tendon(s) of the rotator cuff of right shoulder, subsequent encounter; Translations: [Strain of muscle(s) and tendon(s) of the rotator cuff of right shoulder, initial encounter]Onset: 01-15-2017 31-81-8782JcmnarneEydcssalbgx injury; contusion (4 sources)Cat scratch injury; Translations: [Abrasion of right hand, initial encounter]99-77-8206DxqnhpobRhrbhsz disorders (10 sources)Disorder of thyroid, unspecified; Translations: [Disorder of thyroid gland]Onset: 18-84-3412WwdusaznMxemelppvcbs (2 sources)Unknown / UNK(Unknown)Onset: 22-10-7506Irxmmnf tract infections (4 sources)Urinary tract infectious disease; Translations: [Urinary tract infection, site not specified]Onset: 934630-95-8999UjgbyyceWwhrr infection (4 sources)Disease caused by 2019-nCoV; Translations: [COVID-19]Onset: 764349-17-3749Ohgmcghi Past or Other Problems Problem ClassificationProblemDateDocumented DateEpisodic/ChronicDeficiency and other anemia (1 source)Anemia, unspecified; Translations: [ANEMIA UNSPECIFIED]Onset: 24-85-3813OyqrxreoMsmqwtjd mellitus without complication (1 source)Other abnormal glucose; Translations: [OTHER ABNORMAL GLUCOSE]Onset: 97-80-1036ZzamyuxaMrrnx connective tissue disease (1 source)Unspecified rotator cuff tear or rupture of right shoulder, not specified as traumatic; Translations: [UNSP ROTATR-CUFF TEAR/RUPTR OF RIGHT SHOULDER, NOT TRAUMA]Onset: 15-72-9952Lmznxmwc Results Test NameValueInterpretationReference RangeFacilityUrine Cultureon 11-23-2024 Bacteria identified Cx Nom (U)ORGANISM: Escherichia coli (O:ESCCOL) [place] Count >100,000 Aerobic SARI Charge (NMIC56) SUSCEPTIBILITY [...] <4 Tigecycline S <2 Tobramycin S <2 Trimethoprim/Sulfamethoxazole S <0.5 S = SUSCEPTIBLE I = [...] RESISTANT TO ALL B-LACTAM DRUGS. PERFORMED BY: [place] [address] PATHOLOGIST SEED LABORATORY TECHNICIAN HERSON CORNELIUS M.D.[facility] Physician GroupComment on above: Performed By: #### [facility] #### [place] [address] USAXR HAND 3+ VIEWS RIGHTon 20-88-1875PJ HAND 3+ VIEWS RIGHT EXAM: XR HAND [...] MARY OLMSTEAD MD at 19-Mar-2024 10:24:34 AM [facility]-[place]namese TeleradiologyNormalNot AvailableXR Hand - right 3 Viewson 44-49-7832JSQP: XR HAND 3+ VIEWS RIGHT HISTORY: Cat [...] MARY OLMSTEAD MD at 19-Mar-2024 10:24:34 AM [facility] Teleradiology Rose Mary Nuñez MD - 03/19/2024 EXAM: XR HAND 3+ [...] MARY OLMSTEAD MD at 19-Mar-2024 10:24:34 AM [facility] Teleradiology [facility] HealthcareRadiology Study observation (narrative)[facility] HealthcareXR Hand - right 3 ViewsOrdered By: Rose Mary Olmstead on 53-59-0775[facility] Work Phone: Bacteria [Presence] in Urine by AutomatedOrdered By: Adela Baker on 57-46-4611Wezuelds Auto Ql (U)4+ [HPF]HighNone SeenMercy Health Defiance HospitalBilirubin Test strip Ql (U)Ordered By: Adela Baker on 55-23-3590Dkkmngmca Ql (U)NegativeNegativeMercy Health Defiance Hospital Calcium oxalate crystals [Presence] in Urine by Computer assisted methodOrdered By: Adela Baker on 11-17-9566Cilvojg oxalate crystals Computer assisted Ql (U) 3+ [HPF][facility] HospitalColor Auto (U)Ordered By: Adela Baker on 69-36-4326Vynby (U)Light-yellowYellowMercy Health Defiance Hospital Crystals.amorphous [Presence] in Urine by Computer assisted methodOrdered By: Adela Baker on 34-63-9740Uczolvph.amorphous Computer assisted Ql (U)Rare [HPF] [facility] HospitalEpithelial cells.squamous [#/area] in Urine sediment by Automated countOrdered By: Adela Baker on 19-77-1999Rxygtseoxq cells.squamous Auto (Urine sed) [#/Area]1-2 [HPF]0-2F[facility] Healthcare SystemErythrocytes [#/area] in Urine sediment by Automated countOrdered By: Adela Baker on 24-22-4184LXN Auto (Urine sed) [#/Area]3-4 [HPF]0-4F[facility] Healthcare SystemGlucose [Mass/volume] in Urine by Test stripOrdered By: Adela Baker on 59-89-3418Yafzjnv Test strip (U) [Mass/Vol]Normal mg/dLNormal [facility] HospitalHemoglobin Test strip Ql (U)Ordered By: Adela Baker on 30-27-0312Sujgslypsw Ql (U)NegativeNegativeMercy Health Defiance HospitalHyaline casts [#/area] in Urine sediment by Automated countOrdered By: Adela Baker on 49-93-2161Jllipxk casts Auto (Urine sed) [#/Area]0-8 [LPF]0-8 [facility] HospitalKetones Test strip Ql (U)Ordered By: Adela Baker on 95-59-5051Pmqogms Ql (U)NegativeNegativeMercy Health Defiance HospitalLeukocyte esterase [Presence] in Urine by Test stripOrdered By: Adela Baker on 17-84-7659Lnmejbdhg esterase Test strip Ql (U)NegativeNegative [facility] HospitalLeukocytes [#/area] in Urine sediment by Automated countOrdered By: Adela Baker on 85-46-8783ZYS Auto (Urine sed) [#/Area]3-4 [HPF]0-4F[facility] Healthcare SystemMucus [Presence] in Urine by AutomatedOrdered By: Adela Baker on 53-98-9232Hgyhu Auto Ql (U)1+ [LPF] AbnormalFircleatons Regional Medical CenterNitrite Test strip Ql (U)Ordered By: Adela Baker on 08-60-2039Thonpgp Ql (U)NegativeNegativeMercy Health Defiance HospitalProtein Test strip (U) [Mass/Vol]Ordered By: Adela Baker on 07-99-9881Xlvynpn (U) [Mass/Vol]NegativeNegativeKeenan Private Hospitalpecific gravity Test strip (U) [Rel density]Ordered By: Adela Baker on 49-08-7238Xgfeykid gravity (U) [Rel density]1.0111.001-1.030[facility] HospitalUrine appearanceOrdered By: Adela Baker on 21-80-2687Rtbdsjmanl (U)CloudyAbnormalClearFACMC Healthcare SystemUrobilinogen Test strip (U) [Mass/Vol]Ordered By: Adela Baker on 56-49-0328Ievartxutnhf (U) [Mass/Vol] Normal mg/dLNormalMercy Health Defiance HospitalpH Test strip (U)Ordered By: Adela Baker on 90-70-4404jE (U)6.0 [pH]5.0-9.0Mer[facility] HospitalAlanine aminotransferase [Enzymatic activity/volume] in Serum or Plasma Ordered By: Ashleigh Jackson on 76-00-4353FUF [Catalytic activity/Vol]11 U/L7-52 [facility] HospitalAlbumin [Mass/volume] in Serum or Plasma by Bromocresol green (BCG) dye binding methoOrdered By: Ashleigh Jackson on 50-86-7222Xrbjykd BCG dye [Mass/Vol]4.0 g/dL3.5-5.7F[facility]MC Healthcare SystemAlkaline phosphatase [Enzymatic activity/volume] in Serum or PlasmaOrdered By: Ashleigh Jackson on 34-88-3997NJK [Catalytic activity/Vol]67 U/L34-104 [facility] HospitalAspartate aminotransferase [Enzymatic activity/volume] in Serum or PlasmaOrdered By: Ashleigh Jackson on 37-70-4837EMH [Catalytic activity/Vol]19 U/U81-24ZdyxgkijvMercy Health Defiance HospitalBasophils Auto (Bld) [#/Vol]Ordered By: Ashleigh Jackson on 64-80-2664Wodbzkfcm (Bld) [#/Vol]0.0 10*3/uL0.0-0.2F[facility] Healthcare SystemBasophils/100 WBC Auto (Bld)Ordered By: Ashleigh Jackson on 27-26-6046Yngonktdn/100 WBC (Bld)0.5 %. [facility] HospitalBilirubin Test strip Ql (U)Ordered By: Ashleigh Jackson on 23-30-3780Szxelrgog Ql (U)NegativeNegativeMercy Health Defiance HospitalBilirubin.total [Mass/volume] in Serum or PlasmaOrdered By: Ashleigh Jackson on 41-74-0611Yaogrbmqm [Mass/Vol]0.6 mg/dL0.3-1.0[facility] HospitalCalcium [Mass/volume] in Serum or PlasmaOrdered By: Ashleigh Jackson on 79-55-5522Fzdzkpp [Mass/Vol]9.6 mg/dL8.6-10.3[facility] Carbon dioxide, total [Moles/volume] in Serum or PlasmaOrdered By: Ashleigh Jackson on 01-80-8315EY7 [Moles/Vol]22.0 mmol/L21.0-31.0[facility] HospitalChloride [Moles/volume] in Serum or PlasmaOrdered By: Ashleigh Jackson on 71-18-8132Xuhbzcdd [Moles/Vol]107 mmol/V89-521BtlqdapqnMercy Health Defiance HospitalColor Auto (U)Ordered By: Ashleigh Jackson on 71-14-7699Yvyez (U) YellowYellowMercy Health Defiance HospitalCreatinine [Mass/volume] in Serum or PlasmaOrdered By: Ashleigh Jackson on 29-66-7654Sqwihcnsnb [Mass/Vol]0.94 mg/dL 0.60-1.20[facility] HospitalEosinophils Auto (Bld) [#/Vol]Ordered By: Ashleigh Jackson on 93-65-9268Ppupuxzirlb (Bld) [#/Vol]0.1 10*3/uL0.0-0.45 [facility] HospitalEosinophils/100 WBC Auto (Bld)Ordered By: Ashleihg Jackson on 88-22-1451Okjipyfuxwz/100 WBC (Bld)2.0 %.[facility] HospitalErythrocyte distribution width Auto (RBC) [Ratio]Ordered By: Ashleigh Jackson on 57-01-5333Wsosietbjvt distribution width (RBC) [Ratio]14.5 % 11.9-15.3F[facility] Healthcare SystemGlobulin Calc (S) [Mass/Vol]Ordered By: sAhleigh Jackson on 20-08-8289Doobouek (S) [Mass/Vol]2.8 g/dLMercy Health Defiance HospitalGlucose [Mass/volume] in Serum or PlasmaOrdered By: Ashleigh Jackson on 81-35-6678Wztbzuq [Mass/Vol]93 mg/aG01-015EkhvrpqubMercy Health Defiance HospitalComment on above:ADA recommended reference rangeRandom Glucose Reference Range is dependent on time and content of last meal. Glucose of more than 200 mg/dL in a nonstressed, ambulatory subject supports the diagnosisof Diabetes Mellitus.Hematocrit Auto (Bld) [Volume fraction]Ordered By: Ashleigh Jackson on 88-72-5680Hclftbsgav (Bld) [Volume fraction]41.2 %34.0-46.4F[facility]MC Healthcare SystemHemoglobin [Mass/volume] in BloodOrdered By: Ashleigh Jackson on 19-44-4273Mukdfkgecg (Bld) [Mass/Vol]13.7 g/dL11.8-15.4FACMC Healthcare SystemKetones Auto test strip (U) [Mass/Vol]Ordered By: Ashleigh Jackson on 88-61-4972Rqvneip (U) [Mass/Vol]NegativeNegativeMercy Health Defiance HospitalLeukocytes [#/volume] corrected for nucleated erythrocytes in Blood by Automated counOrdered By: Ashleigh Jackson on 49-16-2667MUX corrected for nucl RBC Auto (Bld) [#/Vol]7.4 10*3/uL3.8-11.6[facility] Lipase [Enzymatic activity/volume] in Serum or PlasmaOrdered By: Ashleigh Jackson on 44-46-0833Kqgctl [Catalytic activity/Vol]38.0 U/L11.0-82.0[facility] HospitalLymphocytes Auto (Bld) [#/Vol]Ordered By: Ashleigh Jackson on 53-06-5385Ekddmlvgvos (Bld) [#/Vol]1.6 10*3/uL1.00-4.8[facility] HospitalLymphocytes/100 WBC Auto (Bld)Ordered By: Ashleigh Jackson on 06-30-2023 Lymphocytes/100 WBC (Bld)21.3 %.[facility] CenterH Auto (RBC) [Entitic mass]Ordered By: Ashleigh Jackson on 30-78-0404UYQ (RBC) [Entitic mass] 29.9 pg24.7-34.3[facility] Healthcare SystemMCHC Auto (RBC) [Mass/Vol] Ordered By: Ashleigh Jackson on 30-66-5253OWEA (RBC) [Mass/Vol]33.3 g/dL32.0-35.0 [facility] HospitalMCV Auto (RBC) [Entitic vol]Ordered By: Ashleigh Jackson on 49-05-8028ZZG (RBC) [Entitic vol]90.0 lT50-533TlxbmozexMercy Health Defiance HospitalMonocyte distribution width [Entitic volume] in Blood by Automated Ordered By: Ashleigh Jackson on 88-02-4060Yudbvwni distribution width Auto (Bld) [Entitic vol]19.27 %0.00-20.00[facility] HospitalMonocytes Auto (Bld) [#/Vol]Ordered By: Ashleigh Jackson on 84-13-3481Xywreoxny (Bld) [#/Vol]0.8 10*3/uL0.0-0.8[facility] HospitalMonocytes/100 WBC Auto (Bld) Ordered By: Ashleigh Jackson on 93-24-3931Uvgvkgwbr/100 WBC (Bld)10.4 %.[facility] HospitalNeutrophils Auto (Bld) [#/Vol]Ordered By: Ashleigh Jackson on 46-53-0375Jfulqghtymf (Bld) [#/Vol]4.8 10*3/uL1.8-7.7[facility] SystemNeutrophils/100 WBC Auto (Bld)Ordered By: Ashleigh Jackson on 23-02-8848Ckulxaqoxyi/100 WBC (Bld)65.8 %.[facility] Nitrite Test strip Ql (U)Ordered By: Ashleigh Jackson on 10-90-8367Xqkckbt Ql (U) NegativeNegativeMercy Health Defiance HospitalNo Panel InformationOrdered By: Ashleigh Jackson on 67-46-3892Rrjrukbob GFR (CKD-EPI)> 60.0 mL/MinMercy Health Defiance HospitalPharmacy Creatinine Clearance (Chem47.58[facility] HospitalNucleated erythrocytes [Presence] in Blood by Automated countOrdered By: Ashleigh Jackson on 35-49-0023Zeclypfyv RBC Auto Ql (Bld)0.1 /100{WBC}0-0.5[facility] Healthcare SystemPlatelet mean volume Auto (Bld) [Entitic vol]Ordered By: Ashleigh Jackson on 79-53-1492Epwdywdw mean volume (Bld) [Entitic vol]8.1 fL6.3-10.7[facility] Healthcare SystemPlatelets Auto (Bld) [#/Vol]Ordered By: Ashleigh Jackson on 99-78-0816Sfitbfqjp (Bld) [#/Vol]304 10*3/aD523-566VdbicqomrMercy Health Defiance HospitalPotassium [Moles/volume] in Serum or PlasmaOrdered By: Ashleigh Jackson on 56-88-4764Yqeidtkzg [Moles/Vol]4.4 mmol/L3.5-5.1[facility] SystemProtein Auto test strip (U) [Mass/Vol]Ordered By: Ashleigh Jackson on 45-90-1174Fajuwep (U) [Mass/Vol]Negative NegativeMercy Health Defiance HospitalProtein [Mass/volume] in Serum or PlasmaOrdered By: Ashleigh Jackson on 83-61-2258Tlccmsa [Mass/Vol]6.8 g/dL6.4-8.9 [facility] HospitalRBC Auto (Bld) [#/Vol]Ordered By: Ashleigh Jackson on 93-30-0384RZU (Bld) [#/Vol]4.57 10*6/uL3.60-5.00[facility] Hospitalerum or plasma albumin/globulin mass ratioOrdered By: Ashleigh Jackson on 96-45-2120Mvcjoko/Globulin [Mass ratio]1.4 {ratio}[facility] Hospitalerum or plasma anion gap determinationOrdered By: Ashleigh Jackson on 05-41-3400Eybjc gap [Moles/Vol]See comment6.0-15.0[facility] HospitalComment on above:Specimen hemolyzed, redraw requestedSodium [Moles/volume] in Serum or PlasmaOrdered By: Ashleigh Jackson on 84-64-3734Ymimrc [Moles/Vol]137 mmol/Z875-301WzdcrwlgaKeenan Private Hospitalpecific gravity Auto test strip (U) [Rel density]Ordered By: Ashleigh Jackson on 98-60-7618Qzsqixnu gravity (U) [Rel density]1.0181.001-1.030[facility] HospitalUrea nitrogen [Mass/volume] in Serum or PlasmaOrdered By: Ashleigh Jackson on 41-91-5378Xgyv nitrogen [Mass/Vol]16 mg/dL7-25[facility] HospitalUrine clarity by refractometry automatedOrdered By: Ashleigh Jackson on 98-27-6627Axbwttj Refractometry automated (U)ClearCleMercy Health St. Rita's Medical CenterUrine glucose measurement by automated test strip (mass/volume)Ordered By: Ashleigh Jackson on 86-26-2657Xadhvly Auto test strip (U) [Mass/Vol]Normal mg/dLNoMercy Health – The Jewish HospitalUrine hemoglobin detection by automated test stripOrdered By: Ashleigh Jackson on 58-69-5206Psmfvyjyrl Auto test strip Ql (U) NegativeNegMiami Valley HospitalUrine leukocyte esterase detection by automated test stripOrdered By: Ashleigh Jackson on 06-30-2023 Leukocyte esterase Auto test strip Ql (U)NegativeNegMiami Valley HospitalUrobilinogen Auto test strip (U) [Mass/Vol]Ordered By: Ashleigh Jackson on 39-76-4069Hvcguegrzdum (U) [Mass/Vol]Normal mg/dLNormProMedica Fostoria Community HospitalWBC Auto (Bld) [#/Vol]Ordered By: Ashleigh Jackson on 53-48-2470LZB (Bld) [#/Vol]7.4 10*3/uL3.8-11.6[facility] pH Auto test strip (U)Ordered By: Ashleigh Jackson on 48-86-3243vB (U)6.0 [pH] 5.0-9.0[facility] HospitalAlanine aminotransferase [Enzymatic activity/volume] in Serum or PlasmaOrdered By: Carine Montoya on 82-16-9510ZWT [Catalytic activity/Vol]13 U/L7-52[facility] HospitalAlbumin [Mass/volume] in Serum or Plasma by Bromocresol green (BCG) dye binding metho Ordered By: Carine Montoya on 08-95-1089Nwhhnmu BCG dye [Mass/Vol]4.1 g/dL 3.5-5.7F[facility] Healthcare SystemAlkaline phosphatase [Enzymatic activity/volume] in Serum or PlasmaOrdered By: Carine Montoya on 33-85-1039AUW [Catalytic activity/Vol]76 U/N58-040DyyqbgeypMercy Health Defiance HospitalAspartate aminotransferase [Enzymatic activity/volume] in Serum or PlasmaOrdered By: Carine Montoya on 48-61-4545CQS [Catalytic activity/Vol]20 U/R27-32YmwyqygzwMercy Health Defiance HospitalBasophils Auto (Bld) [#/Vol]Ordered By: Carine Montoya on 78-98-2462Uxnixmrdp (Bld) [#/Vol]0.0 10*3/uL0.0-0.2[facility] SystemBasophils/100 WBC Auto (Bld)Ordered By: Carine Montoya on 05-28-2023 Basophils/100 WBC (Bld)0.5 %.[facility] HospitalBilirubin.total [Mass/volume] in Serum or PlasmaOrdered By: Carine Montoya on 05-28-2023 Bilirubin [Mass/Vol]0.7 mg/dL0.3-1.0[facility] HospitalCalcium [Mass/volume] in Serum or PlasmaOrdered By: Carine Montoya on 48-27-2287Qyqjvvt [Mass/Vol]9.5 mg/dL8.6-10.3[facility] Healthcare SystemCarbon dioxide, total [Moles/volume] in Serum or PlasmaOrdered By: Carine Montoya on 05-28-2023 CO2 [Moles/Vol]26.5 mmol/L21.0-31.0[facility] HospitalChloride [Moles/volume] in Serum or PlasmaOrdered By: Carine Montoya on 05-28-2023 Chloride [Moles/Vol]108 mmol/V01-927CkhtrchroMercy Health Defiance HospitalCreatinine [Mass/volume] in Serum or PlasmaOrdered By: Carine Montoya on 05-28-2023 Creatinine [Mass/Vol]0.87 mg/dL0.60-1.20[facility] Eosinophils Auto (Bld) [#/Vol]Ordered By: Carine Montoya on 05-28-2023 Eosinophils (Bld) [#/Vol]0.2 10*3/uL0.0-0.45[facility] Eosinophils/100 WBC Auto (Bld)Ordered By: Carine Montoya on 05-28-2023 Eosinophils/100 WBC (Bld)3.5 %.[facility] HospitalErythrocyte distribution width Auto (RBC) [Ratio]Ordered By: Carine Montoya on 05-28-2023 Erythrocyte distribution width (RBC) [Ratio]14.6 %11.9-15.3F[facility] Healthcare SystemErythrocyte sedimentation rate by Photometric methodOrdered By: Carine Montoya on 58-88-1413WZM Photometric method (Bld) [Velocity]29 mm/hr0-29 [facility] HospitalGlobulin Calc (S) [Mass/Vol]Ordered By: Carine Montoya on 87-76-6320Mleuzsfb (S) [Mass/Vol]2.7 g/dLMercy Health Defiance HospitalGlucose [Mass/volume] in Serum or PlasmaOrdered By: Carine Montoya on 65-04-9722Diotbov [Mass/Vol]87 mg/nF13-841OvypeiojtMercy Health Defiance Hospital Comment on above:ADA recommended reference rangeRandom Glucose Reference Range is dependent on time and content of last meal. Glucose of more than 200 mg/dL in a nonstressed, ambulatory subject supports the diagnosisof Diabetes Mellitus. Hematocrit Auto (Bld) [Volume fraction]Ordered By: Carine Montoya on 05-28-2023 Hematocrit (Bld) [Volume fraction]41.5 %34.0-46.4[facility] SystemHemoglobin [Mass/volume] in BloodOrdered By: Carine Montoya on 05-28-2023 Hemoglobin (Bld) [Mass/Vol]13.9 g/dL11.8-15.4[facility] Leukocytes [#/volume] corrected for nucleated erythrocytes in Blood by Automated counOrdered By: Carine Montoya on 91-81-7730FER corrected for nucl RBC Auto (Bld) [#/Vol]5.6 10*3/uL3.8-11.6[facility] SystemLymphocytes Auto (Bld) [#/Vol]Ordered By: Carine Montoya on 39-79-7781Awutetzowbv (Bld) [#/Vol]1.4 10*3/uL1.00-4.8[facility] HospitalLymphocytes/100 WBC Auto (Bld)Ordered By: Carine Montoya on 05-53-5198Ycdygfntzvs/100 WBC (Bld)24.6 %.[facility] Auto (RBC) [Entitic mass]Ordered By: Carine Montoya on 93-92-8033DUF (RBC) [Entitic mass]30.5 pg24.7-34.3[facility] Healthcare SystemMCHC Auto (RBC) [Mass/Vol]Ordered By: Carine Montoya on 34-38-8255IBGT (RBC) [Mass/Vol]33.6 g/dL32.0-35.0[facility] HospitalMCV Auto (RBC) [Entitic vol]Ordered By: Carine Montoya on 64-96-6570WXS (RBC) [Entitic vol]90.8 mC66-166JiqxdkeleMercy Health Defiance HospitalMonocytes Auto (Bld) [#/Vol]Ordered By: Carine Montoya on 77-44-7368Cdzfnvcrq (Bld) [#/Vol]0.7 10*3/uL0.0-0.8[facility] HospitalMonocytes/100 WBC Auto (Bld) Ordered By: Carine Montoya on 73-46-1355Twwohpzjz/100 WBC (Bld)12.7 %.[facility] HospitalNeutrophils Auto (Bld) [#/Vol]Ordered By: Carine Montoya on 69-33-0028Ommvatxdkkk (Bld) [#/Vol]3.3 10*3/uL1.8-7.7[facility] SystemNeutrophils/100 WBC Auto (Bld)Ordered By: Carine Montoya on 04-60-6056Grchwzmmmdg/100 WBC (Bld)58.7 %.[facility] No Panel InformationOrdered By: Carine Montoya on 17-85-6859Nzxvlawmh GFR (CKD-EPI)> 60.0 mL/MinMercy Health Defiance HospitalPharmacy Creatinine Clearance (ChemN/AFACMC Healthcare SystemNucleated erythrocytes [Presence] in Blood by Automated countOrdered By: Carine Montoya on 05-28-2023 Nucleated RBC Auto Ql (Bld)0.1 /100{WBC}0-0.5[facility] Platelet mean volume Auto (Bld) [Entitic vol]Ordered By: Carine Montoya on 23-95-8861Fggznbhi mean volume (Bld) [Entitic vol]8.1 fL6.3-10.7[facility] SystemPlatelets Auto (Bld) [#/Vol]Ordered By: Carine Montoya on 27-00-5416Hafskgyxf (Bld) [#/Vol]289 10*3/mB606-346PweeydpbeMercy Health Defiance HospitalPotassium [Moles/volume] in Serum or PlasmaOrdered By: Carine Montoya on 01-02-7352Wcxkwcwij [Moles/Vol]4.5 mmol/L3.5-5.1[facility] SystemProtein [Mass/volume] in Serum or PlasmaOrdered By: Carine Montoya on 53-11-0140Gafufxt [Mass/Vol]6.8 g/dL6.4-8.9[facility] HospitalRBC Auto (Bld) [#/Vol]Ordered By: Carine Montoya on 67-00-4108GQL (Bld) [#/Vol]4.57 10*6/uL3.60-5.00[facility] Hospitalerum or plasma albumin/globulin mass ratioOrdered By: Carine Montoya on 05-28-2023 Albumin/Globulin [Mass ratio]1.5 {ratio}[facility] Hospitalerum or plasma anion gap determinationOrdered By: Carine Montoya on 09-13-6896Twsab gap [Moles/Vol]11.0 mmol/L6.0-15.0[facility] Hospitalodium [Moles/volume] in Serum or PlasmaOrdered By: Carine Montoya on 57-48-9933Emrjlt [Moles/Vol]141 mmol/F085-357QlxgkwfzpMercy Health Defiance HospitalThyrotropin [Units/volume] in Serum or PlasmaOrdered By: Carine Montoya on 15-88-6727ZRT Qn 13.24 m[IU]/L0.45-5.33[facility] HospitalThyroxine (T4) free [Mass/volume] in Serum or PlasmaOrdered By: Carine Montoya on 34-37-6163Qpnj T4 [Mass/Vol]0.67 ng/dL0.61-1.12[facility] HospitalUrea nitrogen [Mass/volume] in Serum or PlasmaOrdered By: Carine Montoya on 53-45-4048Sobi nitrogen [Mass/Vol]21 mg/dL7-25[facility] HospitalWBC Auto (Bld) [#/Vol]Ordered By: Carine Montoya on 32-76-0744QND (Bld) [#/Vol]5.6 10*3/uL 3.8-11.6[facility] SystemGlucose Glucometer (BldC) [Mass/Vol] Ordered By: Camille Dennison on 99-57-3515Xbdcawy [Mass/Vol]115 mg/dLMercy Health Defiance HospitalComment on above:Random Glucose Reference Range is dependent on time and content of last meal. Glucose of more than 200 mg/dL in a nonstressed, ambulatory subject supports the diagnosis of Diabetes Mellitus.CBC AUTO DIFFon 41-61-5341CELJ #0.0 103/ulNormal0.0-0.1The [facility] HospitalComment on above:Performed By: #### CMP, LIPID, TSH, T7 #### [facility] [address] [place], [place] [address] Dr. Grace Washingtonphils/100 WBC (Bld)0.3 %Normal0.2-2.0[facility] Comment on above:Performed By: #### CMP, LIPID, TSH, T7 #### [facility] [address] [place], [place] [address] Dr. Grace Garnett #0.1 103/ulNormal0.0-0.7The [facility] HospitalComment on above: Performed By: #### CMP, LIPID, TSH, T7 #### [facility] [address] [place] [address] Dr. Grace Carranzaosinophils/100 WBC (Bld)1.3 %Normal0.9-7.0[facility] Comment on above:Performed By: #### CMP, LIPID, TSH, T7 #### [facility] [address] [place] [address] Dr. Grace Carranzarythrocyte distribution width (RBC) [Ratio]13.8 %Ovaddz68.0-15.0 The [facility] HospitalComment on above:Performed By: #### CMP, LIPID, TSH, T7 #### [facility] [address] [place] [address] Dr. Grace DurandHematocrit (Bld) [Volume fraction]42.9 %Pgkzhs73.0-48.0The [facility] HospitalComment on above:Performed By: #### CMP, LIPID, TSH, T7 #### [facility] [address] [place] [address] Dr. Grace DurandHemoglobin (Bld) [Mass/Vol]14.2 g/wPXneyvx32.0-16.0The [facility] Centerment on above:Performed By: #### CMP, LIPID, TSH, T7 #### [facility] [address] [place] [address] Dr. Grace Lord #0.02 10e3/ulNormal0.00-0.03The [facility] Centerment on above:Performed By: #### CMP, LIPID, TSH, T7 #### [facility] [address] [place] [address] Dr. Grace Lodr %0.3 %Normal0.0-0.5The [facility] HospitalComment on above: Performed By: #### CMP, LIPID, TSH, T7 #### [facility] [address] [place] [address] Dr. Grace Bravo #1.6 103/ulNormal1.2-3.8The [facility] HospitalComment on above:Performed By: #### CMP, LIPID, TSH, T7 #### [facility] [address] [place] [address] Dr. Grace Pedersonmphocytes/100 WBC (Bld)22.8 %Upevyr57.5-60.0The [facility] HospitalComment on above:Performed By: #### CMP, LIPID, TSH, T7 #### [facility] [address] [place] [address] Dr. Grace Galvan DIFF REQNONormalThe [facility] HospitalComment on above: Performed By: #### CMP, LIPID, TSH, T7 #### [facility] [address] [place] [address] Dr. Grace Manuel (RBC) [Entitic mass]30.0 sfWfzjbk84.7-34.0The [facility] HospitalComment on above:Performed By: #### CMP, LIPID, TSH, T7 #### [facility] [address] [place] [address] Dr. Grace Manuel (RBC) [Mass/Vol]33.1 g/jHSwgcjj17.9-35.2The [facility] Centerment on above:Performed By: #### CMP, LIPID, TSH, T7 #### [facility] [address] [place] [address] Dr. Grace Manuel (RBC) [Entitic vol]90.5 hITaqptv57.0-99.0[facility] on above:Performed By: #### CMP, LIPID, TSH, T7 #### [facility] [address] [place] [address] Dr. Grace Almanza #0.7 103/ulNormal0.3-0.8The [facility] on above:Performed By: #### CMP, LIPID, TSH, T7 #### [facility] [address] [place] [address] Dr. Grace Okeefeocytes/100 WBC (Bld)10.4 %Normal1.7-12.0[facility] Comment on above:Performed By: #### CMP, LIPID, TSH, T7 #### [facility] [address] [place] [address] Dr. Grace Sultana #4.6 103/ulNormal1.4-6.5The [facility] HospitalComment on above:Performed By: #### CMP, LIPID, TSH, T7 #### [facility] [address] [place] [address] Dr. Grace Matuteutrophils/100 WBC (Bld)64.9 %Xotzqk53.0-75.0The [facility] HospitalComment on above:Performed By: #### CMP, LIPID, TSH, T7 #### [facility] [address] [place] [address] Dr. Grace Flores mean volume (Bld) [Entitic vol]9.6 fLNormal9.5-13.5The [facility] HospitalComment on above:Performed By: #### CMP, LIPID, TSH, T7 #### [facility] [address] [place] [address] Dr. Grace DurandPLT297 103/ncQeqimn697-139Stq [facility] HospitalComment on above: Performed By: #### CMP, LIPID, TSH, T7 #### [facility] [address] [place] [address] Dr. Grace DurandRBC4.74 106/ulNormal4.20-5.40The [facility] HospitalComment on above:Performed By: #### CMP, LIPID, TSH, T7 #### [facility] [address] [place] [address] Dr. Grace DurandWBC7.0 103/ulNormal4.0-11.0The [facility] HospitalComment on above: Performed By: #### CMP, LIPID, TSH, T7 #### [facility] [address] [place] [address] Dr. Grace DurandCT ABD/PELV W CONon 26-70-1738ZR ABD/PELV W CONCT ABDOMEN AND PELVIS WITH CONTRAST: INDICATION: Constipation. COMPARISON: 11/12/2020.. TECHNIQUE: [...] Electronically authenticated by: HECTOR GONZALEZ Date: 2022-09-16 19:29NormFlower Hospitale [facility] HospitalLACTATE/LACTIC ACIDon 69-48-8239Xtffirb [Moles/Vol]1.7 mmol/L Normal0.4-2.0The [facility] HospitalComment on above:Performed By: #### LACT #### [facility] [address] [place] [address] Dr. Grace DurandPROF CHEM 8 (BAS METB)on 18-07-0328Woahu gap [Moles/Vol]12.9 mmol/LNormalThe [facility] HospitalComment on above:Performed By: #### BMP #### [facility] [address] [place] [address] Dr. Grace DurandCalcium [Mass/Vol]9.5 mg/dLNormal8.5-10.1The [facility] Comment on above:Performed By: #### BMP #### [facility] [address] [place] [address] Dr. Grace DurandChloride [Moles/Vol]107 mmol/SOgtyod49-637Zxv [facility] Comment on above:Performed By: #### BMP #### [facility] [address] [place] [address] Dr. Grace DurandCO2 [Moles/Vol]23.6 mmol/IBalhcw55.0-32.0The [facility] Comment on above:Performed By: #### BMP #### [facility] [address] [place] [address] Dr. Grace DurandCreatinine [Mass/Vol]1.14 mg/dLCritically high0.55-1.02The [facility] HospitalComment on above:Performed By: #### BMP #### [facility] [address] [place] [address] Dr. Grace CarranzaGFR-AF ZHLCIQIX08 mL/min/1.93u7Ukjmjhzxuw low>=60The [facility] HospitalComment on above:Performed By: #### BMP #### [facility] [address] [place] [address] Dr. Grace CarranzaGFR-NON AF NBTQBCTU64 mL/min/1.09p6Hqpnkpxbvi low>=60The [facility] HospitalComment on above:Performed By: #### BMP #### [facility] [address] [place] [address] Dr. Grace DurandGlucose [Mass/Vol]120 mg/dLCritically kyla30-650Otp [facility] HospitalComment on above:Performed By: #### BMP #### [facility] [address] [place] [address] Dr. Grace DurandPotassium [Moles/Vol]3.5 mmol/LNormal3.5-5.1[facility] Comment on above:Performed By: #### BMP #### [facility] [address] [place] [address] Dr. Grace DurandSodium [Moles/Vol]140 mmol/JUtcowu162-748Pmz [facility] Comment on above:Performed By: #### BMP #### [facility] [address] [place] [address] Dr. Grace DurandUrea nitrogen [Mass/Vol]14.0 mg/dLNormal7.0-18.0The [facility] HospitalComment on above:Performed By: #### BMP #### [facility] [address] [place] [address] Dr. Grace DurandUrea nitrogen/Creatinine [Mass ratio]12.3 mg/mgNoOur Lady of Mercy Hospital - AndersonComment on above:Performed By: #### BMP #### [facility] [address] [place] [address] Dr. Grace DurandXR ABD FLAT UP_PA Jack 55-65-5983GI ABD FLAT UP_PA CHEXAMINATION: XR ABD FLAT UP_PA CH HISTORY: Constipation [...] Electronically authenticated by: LUKAS HENRY Date: 2022-07-20 16:03[facility] WestT4 LABCORPon [id number] [Mass/Vol]6.6 ug/dLNormal4.5-12.0The [facility] HospitalComment on above:Performed By: #### T4LC #### [facility] [address] [place] [address] Dr. Grace DurandINSULINon 59-45-7724Timlrad5.4 uIU/mLNormal2.6-24.9The [facility] HospitalComment on above:Performed By: #### CMP, LIPID, TSH, T7 #### [facility] [address] [place] [address] Dr. Grace Fonseca AUTO DIFFon [id number] #0.0 103/ulNormal0.0-0.1The [facility] HospitalComment on above:Performed By: #### CMP, LIPID, TSH, T7 #### [facility] [address] [place] [address] Dr. Grace DurandBasophils/100 WBC (Bld)0.4 %Normal0.2-2.0The [facility] Comment on above:Performed By: #### CMP, LIPID, TSH, T7 #### [facility] [address] [place] [address] Dr. Grace Garnett #0.2 103/ulNormal0.0-0.7The [facility] HospitalComment on above: Performed By: #### CMP, LIPID, TSH, T7 #### [facility] [address] [place] [address] Dr. Grace Carranzaosinophils/100 WBC (Bld)3.1 %Normal0.9-7.0The [facility] Comment on above:Performed By: #### CMP, LIPID, TSH, T7 #### [facility] [address] [place] [address] Dr. Grace Carranzarythrocyte distribution width (RBC) [Ratio]13.6 %Pnfbvc68.0-15.0 The [facility]rville HospitalComment on above:Performed By: #### CMP, LIPID, TSH, T7 #### [facility] [address] [place] [address] Dr. Grace DurandHematocrit (Bld) [Volume fraction]45.9 %Uyysun82.0-48.0The [facility] HospitalComment on above:Performed By: #### CMP, LIPID, TSH, T7 #### [facility] [address] [place] [address] Dr. Grace DurandHemoglobin (Bld) [Mass/Vol]14.7 g/jRLgmcii64.0-16.0The [facility] HospitalComment on above:Performed By: #### CMP, LIPID, TSH, T7 #### [facility] [address] [place] [address] Dr. Grace Lord #0.01 10e3/ulNormal0.00-0.03The [facility] HospitalComment on above:Performed By: #### CMP, LIPID, TSH, T7 #### [facility] [address] [place] [address] Dr. Grace Lord %0.2 %Normal0.0-0.5The [facility] HospitalComment on above: Performed By: #### CMP, LIPID, TSH, T7 #### [facility] [address] [place] [address] Dr. Grace Bravo #1.5 103/ulNormal1.2-3.8The [facility]Comment on above:Performed By: #### CMP, LIPID, TSH, T7 #### [facility] [address] [place] [address] Dr. Grace Dunbarhocytes/100 WBC (Bld)30.0 %Pkrfff60.5-60.0[facility] on above:Performed By: #### CMP, LIPID, TSH, T7 #### [facility] [address] [place] [address] Dr. Grace BrennanUAL DIFF REQNONormalThe [facility] HospitalComment on above: Performed By: #### CMP, LIPID, TSH, T7 #### [facility] [address] [place] [address] Dr. Grace Mcmullen (RBC) [Entitic mass]29.1 brMzzrzl37.7-34.0The [facility] HospitalComment on above:Performed By: #### CMP, LIPID, TSH, T7 #### [facility] [facility] [address] [place] [address] Dr. Grace Manuel (RBC) [Mass/Vol]32.0 g/dEBmfuip12.9-35.2The [facility] Falls HospitalComment on above:Performed By: #### CMP, LIPID, TSH, T7 #### [facility] [address] [place] [address] Dr. Grace Breaux (RBC) [Entitic vol]90.7 bPTgqafz56.0-99.0The [facility] Centerment on above:Performed By: #### CMP, LIPID, TSH, T7 #### [facility] [address] [place] [address] Dr. Grace Almanza #0.5 103/ulNormal0.3-0.8The [facility] Centerment on above:Performed By: #### CMP, LIPID, TSH, T7 #### [facility] [address] [place] [address] Dr. Grace Okeefeocytes/100 WBC (Bld)9.9 %Normal1.7-12.0The [facility] Comment on above:Performed By: #### CMP, LIPID, TSH, T7 #### [facility] [address] [place] [address] Dr. Grace Sultana #2.9 103/ulNormal1.4-6.5The [facility] HospitalComment on above:Performed By: #### CMP, LIPID, TSH, T7 #### [facility] [address] [place] [address] Dr. Grace Peraltaophils/100 WBC (Bld)56.4 %Ekduly34.0-75.0The [facility] on above:Performed By: #### CMP, LIPID, TSH, T7 #### [facility] [address] [place] [address] Dr. Grace Flores mean volume (Bld) [Entitic vol]10.1 fLNormal9.5-13.5The [facility] Centerment on above:Performed By: #### CMP, LIPID, TSH, T7 #### [facility] [address] [place] [address] Dr. Grace JacksonT288 103/vwEnjuds647-932Skz [facility] Centerment on above: Performed By: #### CMP, LIPID, TSH, T7 #### [facility] [address] [address] [address] Grace DurandRBC5.06 106/ulNormal4.20-5.40The [facility]Com[facility] on above:Performed By: #### CMP, LIPID, TSH, T7 #### [facility] [address] [address] [address] Grace DurandWBC5.1 103/ulNormal4.0-11.0The [facility] on above: Performed By: #### CMP, LIPID, TSH, T7 #### [facility] [address] [address] [address] Grace DurandFRHANANE THYROXINE INDEX T7on 46-90-3620UVG6.46Pioeom2.30-4.50The [facility] on above:Performed By: #### CMP, LIPID, TSH, T7 #### [facility] [address] [place] [address] Dr. Grace DurandT3U32.0 %Gbmwti78.0-39.0The [facility] on above: Performed By: #### CMP, LIPID, TSH, T7 #### [facility] [address] [place] [address] Dr. Grace DurandT4 [Mass/Vol]6.60 ug/dLNormal4.80-13.90[facility] Comment on above:Performed By: #### CMP, LIPID, TSH, T7 #### [facility] [address] [place] [address] Dr. Grace DurandGLYCOHEMOGLOBIN A1Con 35-27-0922LLS RECOMMENDATIONSEE BELOWNormal The [facility] on above:Result Comment: ADA RECOMMENDED LIMIT 4.0 - 6.0 ADA THERAPEUTIC TARGET < 7.0 ACTION SUGGESTED > 7.0Performed By: #### CMP, LIPID, TSH, T7 #### [facility] [address] [place] [address] Dr. Grace DurandGlucose [Mass/Vol]108 mg/dLNormalThe [facility]Com[facility] on above:Performed By: #### CMP, LIPID, TSH, T7 #### [facility] [address] [address] [address] Grace DurandHbA1c (Bld) [Mass fraction]5.4 %Normal4.5-6.2The [facility] Centerment on above:Performed By: #### CMP, LIPID, TSH, T7 #### [facility] [address] [address] [address] Grace Concepcion 03-14-9252Ncvx [Mass/Vol]76.0 ug/wLHpqwmf33.0-170.0The [facility] HospitalComment on above:Performed By: #### IRON #### [facility] [address] [place] [address] Dr. Grace GalvinID PROFILEon 68-78-5308THPR-HDL RATIO NORMSEE [facility] - AndersonComment on above:Result Comment: 3.3 - 4.4 LOW RISK 4.4 - 7.1 AVERAGE RISK 7.1 - 11.0 MODERATE RISK >11.0 HIGH RISKPerformed By: #### CMP, LIPID, TSH, T7 #### [facility] [address] [place] [address] Dr. Grace Damonesterol [Mass/Vol]200 mg/dLNormal<=200The [facility] Comment on above:Performed By: #### CMP, LIPID, TSH, T7 #### [facility] [address] [place] [address] Dr. Grace DurandCholesterol in HDL [Mass/Vol]61 mg/dLCritically hdlc14-12Jch [facility] on above:Performed By: #### CMP, LIPID, TSH, T7 #### [facility] [address] [address] [address] Grace Damonesterol in LDL [Mass/Vol]109.8 mg/dLLake County Memorial Hospital - WestCombeaumont hospital on above:Performed By: #### CMP, LIPID, TSH, T7 #### [facility] [address] [place] [address] Dr. Grace Damonesterkey.total/Cholesterol in HDL [Mass ratio]3.3 {ratio} NormalThe [facility] HospitalComment on above:Performed By: #### CMP, LIPID, TSH, T7 #### [facility] [address] [address] [address] Grace Maria NORMAL> or = 60 mg/dl - LOW CARDIOVASCULAR RISK <40 mg/dl - HIGH CARDIOVASCULAR RISKLake County Memorial Hospital - WestComment on above:Performed By: #### CMP, LIPID, TSH, T7 #### [facility] [address] [address] [address] Grace DurandLDL CALC NORMALSEE BELOWLake County Memorial Hospital - WestComment on above:Result Comment: <100 mg/dl OPTIMAL 100 - 129 mg/dl NEAR OR ABOVE OPTIMAL 130 - 159 mg/dl BORDERLINE HIGH 160 - 189 mg/dl HIGH >190 mg/dl VERY HIGH Performed By: #### CMP, LIPID, TSH, T7 #### [facility] [address] [place] [address] Dr. Grace DurandTriglyceride [Mass/Vol]146 mg/dLNormal<=150The [facility] Comment on above:Performed By: #### CMP, LIPID, TSH, T7 #### [facility] [address] [place] [address] Dr. Grace SinclairLDL CALC29.2 mg/dLNoOur Lady of Mercy Hospital - AndersonComment on above: Performed By: #### CMP, LIPID, TSH, T7 #### [facility] [address] [place] [address] Dr. Grace DurandPROF 14(COMP METB)on 47-67-8703Mkumxch [Mass/Vol]3.6 g/dLNormal 3.4-5.0The [facility] HospitalComment on above:Performed By: #### CMP, LIPID, TSH, T7 #### [facility] [address] [place] [address] Dr. Grace DurandAlbumin/Globulin [Mass ratio]0.9 {ratio}NormalThe [facility] on above:Performed By: #### CMP, LIPID, TSH, T7 #### [facility] [address] [place] [address] Dr. Grace Dwyer [Catalytic activity/Vol]90 U/CQobisa36-612Cvv [facility] HospitalComment on above:Performed By: #### CMP, LIPID, TSH, T7 #### [facility] [address] [place] [address] Dr. Grace Ramirez [Catalytic activity/Vol]20 U/YJmlqmt87-41Yqc [facility] HospitalComment on above:Performed By: #### CMP, LIPID, TSH, T7 #### [facility] [address] [place] [address] Dr. Grace Paiz gap [Moles/Vol]11.0 mmol/LNormalWhite Hospital Comment on above:Performed By: #### CMP, LIPID, TSH, T7 #### [facility] [address] [place] [address] Dr. Grace Bonilla [Catalytic activity/Vol]18 U/AEzijvb64-63Qbt [facility] HospitalComment on above:Performed By: #### CMP, LIPID, TSH, T7 #### [facility] [address] [place] [address] Dr. Grace DurandBilirubin [Mass/Vol]0.5 mg/dLNormal0.2-1.0[facility] Comment on above:Performed By: #### CMP, LIPID, TSH, T7 #### [facility] [address] [place] [address] Dr. Grace DurandCalcium [Mass/Vol]9.3 mg/dLNormal8.5-10.1[facility] Comment on above:Performed By: #### CMP, LIPID, TSH, T7 #### [facility] [address] [place] [address] Dr. Grace DurandChloride [Moles/Vol]107 mmol/VPlropw44-316Und [facility] Comment on above:Performed By: #### CMP, LIPID, TSH, T7 #### [facility] [address] [place] [address] Dr. Grace DurandCO2 [Moles/Vol]26.9 mmol/ULrzjzt32.0-32.0The [facility] Comment on above:Performed By: #### CMP, LIPID, TSH, T7 #### [facility] [address] [address] [address] Grace DurandCreatinine [Mass/Vol]0.96 mg/dLNormal0.55-1.02The [facility] Centerment on above:Performed By: #### CMP, LIPID, TSH, T7 #### [facility] [address] [place] [address] Dr. Grace CarranzaGFR-AF SENEGALESE>60Normal>=60The [facility] HospitalComment on above:Performed By: #### CMP, LIPID, TSH, T7 #### [facility] [address] [place] [address] Dr. Grace CarranzaGFR-NON AF AONCMMEH57 mL/min/1.43q9Lqxxtmgbep low>=60The [facility] HospitalComment on above:Performed By: #### CMP, LIPID, TSH, T7 #### [facility] [address] [place] [address] Dr. Grace DurandGlobulin (S) [Mass/Vol]3.9 g/dLNormalThe [facility] HospitalComment on above:Performed By: #### CMP, LIPID, TSH, T7 #### [facility] [address] [place] [address] Dr. Grace DurandGlucose [Mass/Vol]95 mg/vZDenmav26-372PtwWhite Hospital Comment on above:Performed By: #### CMP, LIPID, TSH, T7 #### [facility] [address] [place] [address] Dr. Grace DurandPotassium [Moles/Vol]4.9 mmol/LNormal3.5-5.1[facility] Comment on above:Performed By: #### CMP, LIPID, TSH, T7 #### [facility] [address] [place] [address] Dr. Grace DurandProtein [Mass/Vol]7.5 g/dLNormal6.4-8.2[facility] Comment on above:Performed By: #### CMP, LIPID, TSH, T7 #### [facility] [address] [place] [address] Dr. Grace Cifuentesum [Moles/Vol]140 mmol/CUbkagt586-308DzoWhite Hospital Comment on above:Performed By: #### CMP, LIPID, TSH, T7 #### [facility] [address] [address] [address] Grace Poe nitrogen [Mass/Vol]15.0 mg/dLNormal7.0-18.0The [facility] HospitalComment on above:Performed By: #### CMP, LIPID, TSH, T7 #### [facility] [address] [address] [address] Grace Poe nitrogen/Creatinine [Mass ratio]15.6 mg/mgLake County Memorial Hospital - WestComment on above:Performed By: #### CMP, LIPID, TSH, T7 #### [facility] [address] [place] [address] Dr. Grace Elder 44-57-1542EHD7.265 uIU/mLCritically low0.358-3.740White HospitalComment on above:Performed By: #### CMP, LIPID, TSH, T7 #### [facility] [address] [place] [address] Dr. Grace DURANT BELOWLake County Memorial Hospital - WestComment on above: Result Comment: <0.34 UIU/ml HYPERTHYROID 0.34-5.60 UIU/ml EUTHYROID >5.60 UIU/ml HYPOTHYROIDPerformed By: #### CMP, LIPID, TSH, T7 #### [facility] [address] [place] [address] Dr. Grace DurandPhysician Referralon 00-96-2631Oqkevztye Referral [id number]#1.00CD:127NormalParma Community General HospitalFormson [id number]#1.00CD:127 [facility] HospitalPhysician Referralon 80-83-9177Vkpqwlcql [id number]#1.00CD:127NoWood County HospitalAmbulatory Clinical Summaryon 50-02-5407Ojaashpsmj Clinical Summary{54-k8-68-fl-e1-6b-58-97-89-21-7g-08-a5-ff-1c-31}CD:[id number] County HospitalPatient Educationon 42-49-0315Otvivoy EducationFamily Medicine Urinary Frequency The number of times a normal person urinates depends upon how much liquid they take in and how muchliquid they are losing. If the temperature is hot and there is high humidity then the person will sweat more and usually breathe a little more frequently. These factors decrease the amount of frequency of urination that would be considered normal. The amount you drink is easily determined, but the amount of fluid lost is sometimes more difficultto calculate. Fluid is lost in two ways: [...] from a little less than a quart toa little more than a quart of fluid a day. In normal temperatures and activity levels the average person may urinate 4 to 7 times in a 24-hourperiod. Needing to urinate more often than that [...] the bladder. This loss of sensation makes itharder to sense the bladder needs to be emptied. Over a period of years the bladder is stretched out by constant overfilling. This weakens the bladder muscles so that the bladder does not empty well and has less capacity to fill with new urine. ? Interstitial cystitis (also called painful bladder syndrome). This condition develops because thetissues that line the insider of the bladder [...] contrast dye and then asked to urinate. X- rays are taken to see how your bladder is working. TREATMENT It is important for you to be evaluated to determine if the amount or frequency that you have is unusual or abnormal. If it is found to be abnormal the cause should be determined and this can usuallybe found out easily. Depending upon the cause treatment could include medication, stimulation of the nerves, or surgery. There are not too many things that you can do as an individual to change your urinary (more contentnot included)...NormalParma Community General HospitalUrology Office/Clinic Noteon 62-11-6311Gqmneec Office/Clinic NoteChief Complaint Pt is a new patient HPI [...] History of Present Illness Reviewed UA and [employer] paper works. There have been no associated [...] 1. Female bladder prolapse (N81.10: Cystocele, unspecified) [employer] APPRENTICE is referred by Adela Baker CNP. Pt. had a bladder prolapse reair with mesh in by dr flores at [facility]. Her bladder has dropped again [...] and history for this pt. from Dr. Galvez. Follow-up With When Contact Information LENNY HARDY, Juan Solano [address] [place] [address] [place] [address]- [phone] Additional Instructions: Patient Education Urinary Frequency I, Gabrielle Moore , personally scribed for Dr. Galvez on 02/28/2020 13:25:06. Electronically signedby scribradha Moore on 02/28/2020 13:25:06. Documentation recorded by the scribe, Gabrielle Moore, accurately reflects the services(s) I performed and decisions made by me. Authenticated by Dr. Galvez on 02/28/2020 13:30:12. Problem List/Past Medical History [...] Vitamins oral tablet, 1 tab(s), Oral, Daily Seward 325 mg-5 mg oral tablet, 1 tab(s), Oral, q4hr, PRN, 1 refills, Not taking sertraline 100 mg Tab, 100 mg= 1 tab(s), Oral, Daily (more content not included)...[facility] HospitalComment on above:Result Comment: Electronically Signed By: Juan GALVEZ MD\.br\Date and Time Signed: 02/28/20 13:30 EDT\.br\Electronically Co-Signed By: Gabrielle Moore MA\.br\Date and Time Co-Signed: 02/27/2013:25 ROXANA Martinez [facility]-2017 [facility] [place] [address] Patien t Name: GOGO CAREY : 1940Sex: FAge: Race: WhiteMRN: [id number]. Location: 84Patient Status: DVisit #: [id number] Date: 10/01/2017 4:30:00 PMCompleted Date: 10/01/2017 04:36 PMRequesting Provider: GONZALEZ SUTTON Attending Provider: GONZALEZ SUTTON Report Copy To: UNKNOWN, PHYSICIAN Signs & Symptoms: S46.011A Strain of musc/tend the rotator cuff of right shoulder, nzuwY60Kiezpgm: AthenaComments: , , , Ordering Provider - GONZALEZ SUTTON MD , Exam: SHOULDER RIGHTAccession #: [id number] SHOULDER RIGHT 10/01/2017 4:36 PM EDT SIGNS AND SYMPTOMS: S46.011A Strain of musc/tend the rotator cuff of right shoulder, init I10 TECHNOLOGIST COMMENTS: History of right shoulder kofjkhy4001/21/2017. Ortho follow up. QUESTION FOR THE RADIOLOGIST: , , , Ordering Provider - GONZALEZ SUTTON MD , PROTOCOL: AP,Grashey and Axillary views [...] findings. Electronically signed by:Ron Velez. Transcribed by: [email or web address], User Resident: PEYMAN JEAN BAPTISTEElectronically Signed by: RON VELEZ @ 10/02/2017 09:36 AMI personally read this/these film(s) with this [facility] HospitalComment on above:Order Comment: , , , Ordering Provider - GONZALEZ SUTTON MD , Discharge Summaryon [id number] SummaryMR#: [id number] IUniversThe Surgical Hospital at [facility]woods Pt. Name: Gogo Carey Admitted: 01/21/2017Discharged: 01/23/2017 Date of : 1940 Physician: Gonzalez Sutton M.D. DISCHARGE SUMMARYATTENDING PHYSICIAN: Gonzalez Sutton MD, Orthopedics.ADMISSION DIAGNOSIS: Right shoulder rotator cuff arthropathy.DISCHARGE DIAGNOSIS: Right shoulder rotator cuff arthropathy.HOSPITAL COURSE: Thepatient was admitted on January 21 for electiveright reverse total shoulder replacement. The procedure was completedwithout complications, the patient was transferred in stable condition tothe postoperative care unit. A drain was left in place postoperatively.They are removed on hospital day #1. She is given prophylactic antibioticspostoperatively. The patient recovered uneventfully followingsurgery andmet discharge criteria on postoperative day #1. However, she lacked a rideand remained in the hospital an additional day.DISCHARGE DISPOSITION: Home.DISCHARGE INSTRUCTIONS: The patient is nonweightbearing in the right upperextremity. She is encouraged to perform active range of motion atthewrist and elbow as well as passive range of motion of the shoulder. She isprovided medications for pain control. Dressing will remain in place untilpostoperative followup. She will follow up with Dr. Sutton in 2 weeks.Electronically Signed by:Gonzalez Sutton M.D. 02/19/2017 06:23 P Gonzalez Sutton M.D. I have reviewed this discharge summary and confirmed the resident'sdocumentation. Please note that there may be additional documentation fromme. DateDict: 01/28/2017/03:22 P/Gauri Sahu M.D.Date Trans: 01/28/2017 04:03 P/mmoDN_JN:[id number] HospitalCBC W/DIFFon 42-57-2052Xpttrixyr Auto #/vol (Bld)0.0 %Normal0.0-2.0The [facility] HospitalComment on above:Order Comment: No: Do not add to previous drawPerformed By: #### [id number] ####[facility] [address], USAEosinophils/100 leukocytes0.0 %Normal0.0-5.[address] [facility] HospitalComment on above:Order Comment: No: Do not add to previous drawPerformed By: #### [id number] ####[facility] [address], USAErythrocyte distribution width Auto Ratio (RBC)13.8 %Dhgzsk61.5-16.9The [facility] HospitalComment on above:Order Comment: No: Do not add to previous drawPerformed By: #### [id number] ####[facility] [place] [address], USAErythrocytes (RBC)3.62 mill/am1Lzypaf9.50-5.50The [facility] HospitalComment on above:Order Comment: No: Do not add to previous drawPerformed By: #### [id number] ####[facility] [place] [address], USAHematocrit (HCT)32.1 %Low36.0-48.0[facility] HospitalComment on above:Order Comment: No: Do not add to previous drawPerformed By: #### [id number] ####[facility] [place] [address], [facility] HOSPITALHemoglobin mass conc (Bld)10.4 g/dLLow12.0-15.0The [facility] HospitalComment on above:Order Comment: No: Do not add to previous drawPerformed By: #### [id number] ####[facility] [place] [address], PRES[facility]IAN HOSPITALLymphocytes/100 leukocytes6.4 %Low20.0-40.0[facility] HospitalComment on above:Order Comment: No: Do not add to previous drawPerformed By: #### [id number] ####[facility] [place] [address].[place] [address], [facility] MCH28.7 klPtnzdr25.0-32.0[address] [facility] [address] [facility] HospitalComment on above:Order Comment: No: Do not add to previous drawPerformed By: #### [id number] ####[facility] [place] [address], [facility] MCHC mass conc (RBC)32.4 g/gKYfxiup72.0-36.0[address] [facility] HospitalComment on above:Order Comment: No: Do not add to previous drawPerformed By: #### [id number] ####[facility] [place] [address], ZADMXP48.6 hDZfjbqf34.0-100.0[facility] Comment on above:Order Comment: No: Do not add to previous drawPerformed By: #### [id number] ####[facility] [place] [address], USAMETHODNormalThe [facility] St. Mary HospitalComment on above: Order Comment: No: Do not add to previous drawResult Comment: Automated differential performedNormal RBC MorphologyPerformed By: #### [id number] ####[facility] [place] [address], [facility] MONOS9.0 %High2-8The [facility] HospitalComment on above:Order Comment: No: Do not add to previous drawPerformed By: #### [id number] ####[facility] [address], [facility]IAN HOSPITALNeutrophils/100 cmxybrryxo29.6 %Ewpg12-12Nih [facility] HospitalComment on above:Order Comment: No: Do not add to previous drawPerformed By: #### [id number] ####[facility] [address], [facility] PLAT KMY987 Thou/mv7Lkndgi808-463Euy [facility] HospitalComment on above:Order Comment: No: Do not add to previous drawPerformed By: #### [id number] ####[facility] [address], [facility] WBC (Leukocytes)8.0 Thou/oz2Farnbn4.0-10.0The [facility] HospitalComment on above:Order Comment: No: Do not add to previous drawPerformed By: #### [id number] ####[facility] [place] [address], [facility] HOSPITALOperative Reporton [id number] ReportMR#: [id number] I[facility] 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 and chronic retractedmassive rotator cuff tear.PROCEDURE PERFORMED: Right shoulder reverse total shoulder arthroplasty.POSTOPERATIVE DIAGNOSES: Right shoulder severe end-stage glenohumeraldegenerative joint disease with severe humeral head avascular necrosis andcollapse and chronic retracted massive rotator cuff tear.RESIDENT: Gauri Sahu M.D., PGY-3.ANESTHESIA: General anesthesia with interscalene brachial plexus block.IMPLANTS: We used [employer] comprehensive reverse tall shoulder system withmini baseplate, 6.5 mm cancellous compression screw x1, 4.75 mmlockingscrews x4, size 36 mm diameter, standard glenosphere with +2.5 mm inferioroffset, size 10 Press-Fit mini humeral stem, size 44 mm diameter +5 mmhumeral tray with 44 mm diameter, 36 mm curvature standard polyethylenehumeral bearing.INDICATIONS FOR PROCEDURE: Ms. Carey is a 76-year-old femalewhopresented to us with progressive worsening pain of the right shoulder. Shewas diagnosed with right shoulder severe end-stage glenohumeraldegenerative joint disease with severe avascular necrosis of the humeralhead with severe collapse and the chronic retracted massive rotator cufftear. She triedextensive conservative management in the form of activitymodification, medication, physical therapyand injections with no relief.As she failed conservative management, she continued to have significa ntpain with functional limitations. As the pain has [...] plexus block by anesthesia in the holding. Preoperativea ntibiotics were given in the form of 2 [...] starting proximally or the distal end of theclavicleand extending distally in line with the coracoid towards thedeltoid insertion just distal to the anterior axillary fold. Incision wasdeepened down through the subcutaneous tissues and hemostasis was a chieved.The deltopectoral lymph node was identified and the [...] alongthe lesser tuberosity and we were not ableto identify any remainingportion of the subscapularis tendon [...] the biceps tendonwas found to be completely tornand the biceps anchor was completelyexcised. An inferior capsule release was performed along the inf eriorhumeral neck taking care to protect the axillary nerve. The inferiorhumeral osteophytes were completely excised. Shoulder was dislocated.The humeral osteotomy was performed through the anatomical neck reproducinganatomic retroversion. An entry into the humeral canal was madeimmediately about 5mm medial and posterior to the bicipital groove [...] to the face of theglenoid and the gu navenet pin was placed into the glenoid with a slightinferior tilt. The central pilot captain hole was drilled and the glenoid wasreamed down to the subchondral bone. The wound was irrigated. A rozzqgpsrm-zdhhwpzaqz-wxehgjjvo was impacted into the glenoid and was securedand was compressed against by placing a6.5 mm central compression screw.The baseplate was secured [...] standard humeral bearing. Theshoulder was found to havefull forward flexion, full adduction, stable inexternal rotation, [...] the proximal humerus in 30-40 degrees of retr oversion werecompletely seated and axially and rotationally stable [...] in the clinic in 2 weeks.Electronically Signed by: Gonzalez Sutton M.D. 01/26/2017 09:17 P Gonzalez Sutton M.D.Date Dict: 01/22/2017/08:44 Bereket/Gonzalez Sutton M.D.Date Trans: 01/22/2017 05:59 P/anna marieoDN_JN:[id number] Alliance Community HospitalARTERIAL BLOOD GAS W/COOXon 95-36-9980MMFQ EXCESS0 mmol/NWfkuna-3-3Iiy [facility] HospitalComment on above:Performed By: #### 90560, 71010, 84411, 94306 ####[facility] [place] [address], USABicarbonate (HCO3)25 mmol/RZpigpm90-54Sjp [facility] Comment on above:Performed By: #### 68274, 45416, 62447, 76289 ####[facility] [place] [address], GZBQZ424 mmHgNormal 35-45The [facility] HospitalComment on above:Performed By: #### 60181, 06251, 09227, 66021 ####[facility] [place] [address], USACOHB2 %High0-1The [facility] Comment on above:Performed By: #### 75478, 57868, 97934, 38012 ####[facility] [place] [address], USAMETHB1.0 %Normal 0.0-1.5The [facility] HospitalComment on above:Performed By: #### 06965, 54919, 52272, 00541 ####[facility] [place] [address], USAO2 zavdbhrbzg73.4 %Lyhdsi22.0-97.0The [facility] Mary HospitalComment on above:Performed By: #### 49407, 35089, 26242, 68915 ####[facility] [place] [address], USAOxygen in arterial blood99 mm[Hg]Xwdgie13-023Snw [facility] HospitalComment on above:Performed By: #### 68454, 24159, 47735, 66077 ####[address] [place] [address], [facility]OSPITALpH of blood7.43 [pH]Normal7.35-7.45The [facility] HospitalComment on above:Performed By: #### 49271, 70570, 80638, 98596 ####[address] [place] [address], DUYOKN61.0 g/dLLow12.0-15.0The [facility] HospitalComment on above:Performed By: #### 15297, 77604, 30973, 10873 ####[address] [place] [address], [facility] HOSPITALCALCIUM IONIZED CBGLon 31-22-9594AAKECLJ CALCIUM1.22 mmol/LNormal1.13-1.32The [facility] HospitalComment on above:Performed By: #### 51214, 16606, 78955, 71488 ####[address] [place] [address], [facility] POC GLUCOSE LABon 81-49-5619Rlrxwyz mass conc92 mg/oXHmlang79-811Oyh [facility] HospitalComment on above:Performed By: #### 64408 ####[address] [place] [address], [facility]OSPITALPORTABLE SHOULDER RIGHT 2 VWSon 87-60-0657SJSECWKX SHOULDER RIGHT 2 SUniversity [facility] HospitalDepartment of Rrpztockg[address] [place] [address] [id number] Patien t Name: GOGO CAREY : 1940Sex: FAge: Race: WhiteMRN: [id number]. Location: OUTPPatient Status: IVisit #: [id number] Date: 01/21/2017 7:40:00 PMCompleted Date: 01/21/2017 08:41 PMRequesting Provider: GAURI SAHU Attending Provider: GONZALEZ SUTTON Report Copy To: Signs & Symptoms: Post OPHistory: Patient history not availableComments: Hardware EvaluationExam: PORTABLE SHOULDER RIGHT 2 VWSAccession #: [id number] ========PORTABLE SHOULDER RIGHT 2 VWS 01/21/2017 8:41 PM [...] alignment Electronically signed by:Freddy Mcrae. Transcribed by: [id number], User Resident: Electronically Signed by: FREDDY MCRAE @ 01/22/2017 11:[address] Mary HospitalComment on above:Order Comment: Hardware EvaluationPOTASSIUM WHOLE BLOOD CBGLon 86-00-3887Fltzgonru molar conc3.5 mmol/L Normal3.4-5.2The [facility] HospitalComment on above:Performed By: #### 80889, 21547, 05590, 63712 ####[facility] [place] [address], USASODIUM WHOLE BLOOD CBGLon 29-48-8816Ynyvcf 137.0 mmol/DUdbztn864.0-146.0The [facility] HospitalComment on above:Performed By: #### 71839, 86566, 73494, 99157 ####[facility] [place] [address], [facility]ITALCHEST AND [facility] 34-73-8403BRRTB AND Regional Medical CenterDepartment of Zxhiyzqyt[address] [place] [phone] Patien t Name: GOGO CAREY : 1940Sex: FAge: Race: WhiteMRN: [id number]. Location: 84Patient Status: OVisit #: [id number] Date: 01/15/2017 3:05:00 PMCompleted Date: 01/15/2017 03:06 PMRequestingProvider: GONZALEZ SUTTON Attending Provider: GONZALEZ SUTTON Report Copy To: Signs &Symptoms: S46.011A Strain of musc/tend the rotator cuff of right shoulder, init N11[place]: AthenaComments: , , Views (X-RAY, CHEST): PA , , , Ordering Provider - GONZALEZ SUTTON MD , Rendering Provider - GONZALEZ SUTTON MD , Exam: CHEST AND LATERALAccession #: [id number]====== CHEST AND LATERAL 01/15/2017 3:08PM EDT SIGNS AND SYMPTOMS: S46.011A Strain of musc/tend the rotator cuff of right shoulder, init I10 TECHNOLOGIST COMMENTS: Patient states lump on anterior portion of upper chest. History of hypertension. QUESTION FOR THE RADIOLOGIST: , , Views (X-RAY, CHEST): PA , , , Ordering Provider Kemar SUTTON MD , Rendering Provider Kemar SUTTON MD , PROTOCOL: AP(PA) andLateral views were obtained. COMPARISON: None FINDINGS: There is no pulmonary consolidation, pleural effusion, or pneumothorax. The aorta is tortuous The cardiomediastinal silhouette and pulmonary vasculature are within normal limits. No acute osseous abnormalities. IMPRESSION: No radiographic evidence of acute cardiopulmonary process. Electronically signed by:Evaristo Buchanan. Transcribed by: [id number], User Resident: Electronically Signed by: EVARISTO BUCHANAN @ 01/15/2017 03:50 [facility] HospitalComment on above:Order Comment: , , Views (X- RAY, CHEST): PA , , , Ordering Provider Kemar SUTTON MD , Rendering Provider Kemar SUTTON MD , Vital Signs Date TimeVital SignValuePerforming TypqeoauuYdffurld29-02-5234 14:48-0400Body dbgici050.3 cmTimothy [place] DO Work Phone: [employer] Folaeunpwp30-78-5020 14:48-0400Body mass index (BMI) [Ratio]42.85 kg/c3Tlrfyit [place] DO Work Phone: [employer] Wrphttlnjf01-46-1136 14:48-0400Body temperature 98.6 [degF]Darian [place] DO Work Phone: [employer] Nkiqcvikkn98-45-3755 14:48-0400Body zaxtec69.99 kgTimothy [place] DO Work Phone: [employer] Zmwykyzrtj41-87-2782 14:48-0400Diastolic blood zkwzdouj54 mm[Hg]Darian [place] DO Work Phone: [employer] Pouxqigyzb76-28-8872 14:48-0400Heart rate68 /min Darian [place] DO Work Phone: [employer] Zllykfeogi36-40-8144 14:48-0052QnN7% (BldA) [Mass fraction]96 %Darian Blankenship DO Work Phone: noLakeland Regional HospitalPuuvfcxtao17-39-9123 14:48-0400Systolic blood yjeibzxd491 mm[Hg]Darian Blankenship DO Work Phone: noLakeland Regional HospitalCftwdnbwhu49-64-3479 09:30-0500Body mass index (BMI) [Ratio]36.99 kg/d0Xigozi Kemah SHEET METAL APPRENTICE Work Phone: [place] [address]Pwrbionpwg51-78-1980 09:30-0500Body temperature 98.4 [degF]Moe Noyola SHEET METAL APPRENTICE Work Phone: 1(760)[facility]-1997[place] [address]Nykmfnsewp10-69-6113 09:30-0500Body lotapd67.29 kgRachebryan Jonasok SHEET METAL APPRENTICE Work Phone: [place] [address]Qjwiamzuaw20-17-4462 09:30-0500Heart rate71 /min Moe Noyola SHEET METAL APPRENTICE Work Phone: 1(630)[facility]-[address] [address]Yddogzxvih52-28-0468 09:30-9774DtA1% (BldA) [Mass fraction]96 %Moe Noyola SHEET METAL APPRENTICE Work Phone: 1(448)[facility]-2326[place] [address]Kquldkeket78-93-6341 19:54-0500Body mass index (BMI) [Ratio]36.99 kg/g1Spweay Kemah SHEET METAL APPRENTICE Work Phone: [place] [address]Ymagdxvbbe32-14-4345 19:54-0500Body temperature 98.71 [degF]Moe Noyola SHEET METAL APPRENTICE Work Phone: [place] [address]Omfzoayapy29-21-6952 19:54-0500Body gbbuzh76.29 kgRachebryan Jonasok SHEET METAL APPRENTICE Work Phone: 1(292)[facility]-[address] [address]Gqbrspzmia54-75-6681 19:54-0500Diastolic blood kwljkejg76 mm[Hg]Moe Noyola SHEET METAL APPRENTICE Work Phone: [place] [address]Zfzujpjndv62-99-9978 19:54-0500Heart rate84 /min Moe Noyola SHEET METAL APPRENTICE Work Phone: 1(419)[address] [place] [address]-07-2024 19:54-7418JpB7% (BldA) [Mass fraction]97 %Moe Noyola SHEET METAL APPRENTICE Work Phone: [facility] HospitalYsqtiyrmaq99-05-1773 19:54-0500Systolic blood vweobnkn045 mm[Hg]Moe Noyola SHEET METAL APPRENTICE Work Phone: [facility] HospitalWlvdirsyju91-23-4280 21:04-0500Body nsvnncyayjb47 [degF]SHEET METAL APPRENTICE-C Adela Olivia Work Phone: 1(356)552-[address] [place], [place] 3867602-19-2024 21:04-0500 Diastolic blood oczmdqzm31 mm[Hg]SHEET METAL APPRENTICE-C Adela Olivia Work Phone: 1(846)[address]02-19-2024 21:04-0500 Heart rate64 /minNP-C Adela Olivia Work Phone: 1(796)[address]14 [address]02-19-2024 21:04-0500 Respiratory rate20 /minNP-C Adela Olivia Work Phone: 1(254)[address]02-19-2024 21:04-0500 SaO2% (BldA) [Mass fraction]97 %SHEET METAL APPRENTICE-C Adela Olivia Work Phone: 1(883)[address]02-19-2024 21:04-0500 Systolic blood smihicps808 mm[Hg]SHEET METAL APPRENTICE-C Adela Olivia Work Phone: 1(789)744-[address] [place], [place] 3867602-19-2024 14:21-0500 Body koppfr310.4 cmNP-C Adela Olivia Work Phone: 1(482)[address]02-19-2024 14:21-0500 Body sxawdx58.6 kgNP-C Daela Olivia Work Phone: 1(249)[address]12-27-2023 18:25-0500 Diastolic blood gqtirdfz13 mm[Hg]SHEET METAL APPRENTICE-C Adela Olivia Work Phone: 1(540)[address]12-27-2023 18:25-0500 Heart rate98 /minNP-C Adela Olivia Work Phone: 1(157)899-[address] [place], [place] 3867612-27-2023 18:25-0500 Respiratory rate18 /minNP-C Adela Olivia Work Phone: 1(680)[address] [place], [place] 2217212-27-2023 18:25-0500 SaO2% (BldA) [Mass fraction]96 %SHEET METAL APPRENTICE-C Adela Olivia Work Phone: 1(933)[address] [place], [place] 2217212-27-2023 18:25-0500 Systolic blood hotrbswq936 mm[Hg]SHEET METAL APPRENTICE-C Adela Olivia Work Phone: [phone])[address] [place], [place] 2217212-27-2023 15:54-0500 Body cakbbbejghr14.5 [degF]SHEET METAL APPRENTICE-C Adela Olivia Work Phone: 1(864)[address] [place], [place] 2217212-27-2023 15:51-0500 Body mrpnci005.94 cmNP-C Adela Olivia Work Phone: 1(367)[address] [place], [place] 2217212-27-2023 15:51-0500 Body qescvi35.11 kgNP-C Adela Olivia Work Phone: 1(379)[address] [place], [place] 2217210-22-2023 19:24-0400 Diastolic blood spajxkwz55 mm[Hg]SHEET METAL APPRENTICE-C Adela Olivia Work Phone: 1(938)[address] [place], [place] 2217210-22-2023 19:24-0400 Heart rate92 /minNP-C Adela Olivia Work Phone: 1(234)[address] [place], [place] 2217210-22-2023 19:24-0400 Respiratory rate20 /minNP-C Adela Olivia Work Phone: [phone])[address] [place], [place] 2217210-22-2023 19:24-0400 SaO2% (BldA) [Mass fraction]98 %SHEET METAL APPRENTICE-C Adela Olivia Work Phone: 1(583)[address] [place], [place] 2217210-22-2023 19:24-0400 Systolic blood ehqhzcik433 mm[Hg]SHEET METAL APPRENTICE-C Adela Olivia Work Phone: 1(733)[address] [place], [place] 2217210-22-2023 15:36-0400 Body ffbrny504.4 cmNP-C Adela Olivia Work Phone: 1(846)[address]10-22-2023 15:36-0400 Body bsevgy24.01 kgNP-C Adela Olivia Work Phone: 1(239)[address] [place], [place] 2217210-22-2023 15:35-0400 Body ogfrhpuwjih16.9 [degF]SHEET METAL APPRENTICE-C Adela Olivia Work Phone: 1(723)[address] [place], [place] 2217208-07-2023 23:29-0400 Diastolic blood mm[Hg]SHEET METAL APPRENTICE-C Adela Olivia Work Phone: 1(440)[address] [place], [place] 2217208-07-2023 23:29-0400 Heart rate94 /minNP-C Adela Olivia Work Phone: 1(982)[address] [place], [place] 2217208-07-2023 23:29-0400 Respiratory rate19 /minNP-C Adela Olivia Work Phone: 1(062)[address] [place], [place] 2217208-07-2023 23:29-0400 SaO2% (BldA) [Mass fraction]97 %SHEET METAL APPRENTICE-C Adela Olivia Work Phone: 1(428)[address] [place], [place] 2217208-07-2023 23:29-0400 Systolic blood mm[Hg]SHEET METAL APPRENTICE-C Adela Olivia Work Phone: 1(184)[address] [place], [place] 2217208-07-2023 21:06-0400 Body .4 cmNP-C Adela Olivia Work Phone: 1(415)[address] [place], [place] 2217208-07-2023 21:06-0400 Body fxurjh11.6 kgNP-C Adela Olivia Work Phone: 1(857)[address] [place], [place] 2217208-07-2023 15:24-0400 Body xfqralwfxzt80.7 [degF]SHEET METAL APPRENTICE-C Adela Olivia Work Phone: 1(494)[address] [place], [place] 2217206-02-2023 17:37-0400 Body knaqvc767.94 cmNP-C Adela Olivia Work Phone: 1(277)[address]06-02-2023 17:37-0400 Body guyvritpmtz51.4 [degF]SHEET METAL APPRENTICE-C Adela Olivia Work Phone: 1(132)483-[address] [place], [place] 3867606-02-2023 17:37-0400 Body .7 kgNP-C Adela Olivia Work Phone: 1(650)[address]06-02-2023 17:37-0400 Diastolic blood mm[Hg]SHEET METAL APPRENTICE-C Adela Olivia Work Phone: 1(996)483-[address] [place], [place] 3867606-02-2023 17:37-0400 Heart rate90 /minNP-C Adela Olivia Work Phone: 1(338)[address]06-02-2023 17:37-0400 Respiratory rate20 /minNP-C Adela Olivia Work Phone: 1(673)[address] [place], [place] 2217206-02-2023 17:37-0400 SaO2% (BldA) [Mass fraction]96 %SHEET METAL APPRENTICE-C Adela Olivia Work Phone: 1(253)483-[address] [place], [place] 3867606-02-2023 17:37-0400 Systolic blood xfvutpbn259 mm[Hg]SHEET METAL APPRENTICE-C Adela Olivia Work Phone: 1(553)[facility]-[address] [place], [place] 3867604-09-2023 22:00-0400 Diastolic blood uxyihixl39 mm[Hg]SHEET METAL APPRENTICE-C Adela Olivia Work Phone: 1(410)[address] [place], [place] 2217204-09-2023 22:00-0400 Heart rate68 /minNP-C Adela Olivia Work Phone: 1(980)483-[address] [place], [place] 3867604-09-2023 22:00-0400 Respiratory rate18 /minNP-C Adela Olivia Work Phone: 1(859)483-[address] [place], [place] 3867604-09-2023 22:00-0400 SaO2% (BldA) [Mass fraction]100 %SHEET METAL APPRENTICE-C Adela Olivia Work Phone: 1(271)[address]04-09-2023 22:00-0400 Systolic blood dhhlubih675 mm[Hg]SHEET METAL APPRENTICE-C Adela Olivia Work Phone: 1(188)[address]04-09-2023 21:03-0400 Body zmoiwe350.4 cmNP-C Adela Baker Work Phone: [facility]04-09-2023 21:03-0400 Body fsgciyleaop89.6 [degF]SHEET METAL APPRENTICE-Vandana Baker Work Phone: [facility]04-09-2023 21:03-0400 Body pnmshy84.18 kgNP-C Adela Baker Work Phone: [facility] Encounters Encounter DateEncounter TypeCare ProviderFacilityStart: 03-11-2025 End: 24-92-7764Etgutovhp encounterTimothy L [place] DO Work Phone: noms [facility] 230Comment on above: Appointment RequestStart: 03-10-2025 End: 43-68-8369Kjpthpunu encounterTimothy L [place] DO Work Phone: noms [facility] 230Comment on above: Record RequestStart: 03-03-2025 End: 43-43-7702Pbfutf outpatient visit 25 minutesTimothy L [place] DO Work Phone: noms [facility] 230Comment on above: Disorder of thyroid gland (Primary Dx); Mixed incontinence; Mixed anxiety and depressive disorder; Mixed hyperlipidemia; Primary osteoarthritis, unspecified siteStart: 03-03-2025 End: 09-59-2915calfggwkxfKNWKREH L CUTLERNot AvailableStart: 03-03-2025 End: 21-14-7292Pbytse flowsheetTimothy L [place] DO Work Phone: noms [facility] 230Start: 03-03-2025 End: 78-80-7811Rzmuez flowsheetTimothy L [place] DO Work Phone: noms [facility] 230Start: 02-28-2025 [facility] DEPARTMENTStart: 11-23-2024 End: 56-54-5414xmzheqjklzBxs [facility] Work Phone: Start: 11-23-2024 End: 64-37-4889Gpiweqai ReferredGay Castrejon SHEET METAL APPRENTICE-C-[facility] Start: 11-23-2024 End: 95-67-5291Ljcfouot Result EncounterGay Lucía GONZALEZ Work Phone: noms External Department UnsolicitedStart: 11-23-2024 End: 16-94-2247Rmflnlpz Result EncounterGay Lucía GONZALEZ Work Phone: noms External Department UnsolicitedStart: 03-19-2024 End: 36-75-6106yamttuhktfROUFWX L HOLBROOKNot AvailableStart: 03-19-2024 End: 31-07-6967Vulxqv outpatient visit 25 minutesRachel L Kemah SHEET METAL APPRENTICE Work Phone: noms SWS UCComment on above:Right hand pain (Primary Dx); Cat scratch of hand, right, initial encounter; Cellulitis of right handStart: 03-18-2024 End: 85-12-4636deetghzpscAKTXJC L HOLBROOKNot AvailableStart: 03-18-2024 End: 67-60-5397Cjisxr outpatient visit 25 minutesRachel L Kemah SHEET METAL APPRENTICE Work Phone: noms SWS UCComment on above:Cat scratch of hand, right, initial encounter (Primary Dx); Cellulitis of finger of right handStart: 11-09-2023 End: 86-60-0882xvcpejzyxuCX-C Adela Baker Work Phone: [facility] Work Phone: Start: 11-09-2023 End: 22-69-7749Evtiyvnr ReferredNP-C Adela Baker Work Phone: [facility]-Lab [facility] [place] Work Phone: Start: 06-30-2023 End: 10-50-7715Psjadxzgf department patient visitNP-C Adela Baker Work Phone: [facility]-Emergency Room Work Phone: Start: 05-28-2023 End: 79-28-6187dnwgndyrvaNC-C Adela Rizvi Olivia Work Phone: [facility] Work Phone: Start: 05-28-2023 End: 03-69-5266Tkrgaft encounter procedureNP-C Adela Nievesmer Work Phone: [facility]-Lab [facility] [place] Work Phone: Start: 05-07-2023 End: 82-35-3831Jkbkvbjxw department patient visitNP-C Adela Nievesmer Work Phone: [facility]-Emergency Room Work Phone: Start: 03-02-2023 End: 23-75-4225Ejvtfxjmo department patient visitNP-C Adela Olivia Work Phone: [facility]-Emergency Room Work Phone: Start: 12-16-2022 End: 75-32-1499Thrxqdzhf department patient visitNP-C Adela Nievesmer Work Phone: [facility]-Emergency Room Work Phone: Start: 10-11-2022 End: 30-04-3481Ibihhdxsk department patient visitNP-C Adela Nievesmer Work Phone: [facility]-Emergency Room Work Phone: Start: 09-16-2022 End: 84-36-5920logzmgrrpbHW ALISA MCDERMOTT .Facility:Q7Wqinz: 08-18-2022 End: 78-61-9883Erhjgmkcb department patient visitNP-C Adela Nievesmer Work Phone: [facility]-Emergency Room Work Phone: Start: 08-13-2022 End: 59-33-5766lppqkzvkcuWV-C Adela Beckmanradha Baker Work Phone: [facility] Work Phone: Start: 08-13-2022 End: 40-91-5032Qmoylnm encounter procedureNP-C Adela Baker Work Phone: [facility]-Sleep Lab Work Phone: Start: 07-20-2022 End: 89-17-0692yozanpxdwtQLYADC CRAMERFacility:J2Fiegc: 10-01-2021 End: 36-60-8255ubmfyysvblBRXIHX CRAMERFacility:O2Kyicb: 10-01-2017 End: 02-53-3494KprfpcngoyUWSLMAWP K RAMINENIFacility:UTMCStart: 01-21-2017 End: 41-19-8683Bdusqbuysw and management of inpatientSJOVANI Antonio COTY Facility:[facility]tart: 01-15-2017 End: 82-33-7615IhfxoadwzkQCBKJRSX K RAMINENIFacility:UTMCStart: 12-11-2016 End: 71-43-9914FqmypvraiyUETQHYU PHYSICIANFacility:[facility]OLLY[facility] CENTERtart: 12-11-2016 End: 93-73-4105EsocktfjynYGRKAQP PHYSICIANFacility:[facility] Procedures DateProcedureProcedure DetailPerforming ClinicianStart: 67-12-0476Xtacmca bacterial quanttative colony count urineAmy Lucía LISA Work Phone: Start: 51-93-8354Gnbke hand minimum 3 viewsRachel L Elisabeth SHEET METAL APPRENTICE Work Phone: Start: 70-09-2181Kagujrkp tomography of abdomen and pelvis with contrastNP-C Adela Baker Work Phone: Start: 41-09-2270Kelggsojwu radiography of abdomenNP-C Adela Baker Work Phone: Start: 36-50-9100Ewwzxfbmhy radiography of abdomenNP-C Adela Baker Work Phone: Start: 12-81-4260TUWYXTQ OF ARTERIAL SATURATION, PERIPHERAL, PERC APPROACHSATHEKENNEY Alvarez RAMINENIStart: 74-15-9419TLOXCKE OF R SHOULDER JT WITH REV BL \T\ SOCKT, OPEN APPROACHSATHEESH K RAMINENI Plan of Treatment DateCare ActivityDetailAuthorStart: 03-17-2025 End: 66-79-4532Puoyfin encounter /06/2025 3:00 PM EST [facility] [address] [place] [address] [place], Darian L, DO [address] [place] [address] [facility] 230 Start: 03-03-2025 End: 12-18-3711Jfuknvz encounter kqluxeaws06/23/2025 3:00 PM EDT Office Visit TORIN Augustinusky [facility] [address] [place] [address] [place], Darian L, DO [address] [place] [address] [facility]NOEC[facility] 230Comment on above:ArrivedStart: 63-97-0988WUPJA-19 Vaccine ( season)COVID-19 Vaccine ( season)[facility] HealthcareStart: 01-10-2025 Influenza vaccinationInfluenza Vaccine (#1)[facility] HealthcareStart: 68-99-2522[facility] Hospitaltart: 97-94-9613Giqpjxqt identified in Urine by [facility] Centertart: 45-14-8650Nwauycbqr vaccinationInfluenza Vaccine (#1)[facility] HealthcareStart: 26-45-2892Fvxzwhgs identified in Urine by [facility] Centertart: 08-31-2020 DTaP/Tdap/Td Vaccines (2 - Tdap)DTaP/Tdap/Td Vaccines (2 - Tdap)[facility] Healthcare Start: 54-19-9071Ljxsfawwbhnn Vaccine: 65+ Years (1 of 1 - PCV)Pneumococcal Vaccine: 65+ Years (1 of 1 - PCV)[facility] HealthcareStart: 49-60-1579Ougbeduqcfxy Vaccine: 65+ Years (1 of 1 - PCV)Pneumococcal Vaccine: 65+ Years (1 of 1 - PCV) [facility] HealthcareStart: 07-18-1943Medicare Annual Wellness (AWV)Medicare Annual Wellness (AWV)[facility] HealthcarePatient EducationSumma Health [facility] Work Phone: [facility] referralFirelands [facility] Work Phone: Immunizations Immunization DateImmunizationNotesCare CmouvmqnAniefsdb25-67-6669geikcif and diphtheria toxoids, adsorbed, preservative free, for adult use (5 Lf of tetanus toxoid and 2 Lf of diphtheria toxoid)Darian Blankenship DO Work Phone: [facility] Payers DatePayer CategoryPayerPolicy [id number] (Managed Care)[employer] [id number] 2022[place] [id number] [id number] 2.16.840.1.137666.3.57[id number] 2..840.1.401481.3.57[id number] 2..840.1.934707.3.57[id number] 2.16.840.1.092990.3.57[id number] 2..840.1.843145.3.57[id number] 2..840.1.778215.3.57[id number] 2.16.840.1.325863.3.57[id number]/HFA/FAP [id number] Social History DateTypeDetailFacilityStart: 46-81-2017Bzwwvnp smoking status NHISEx-smoker (finding)[facility]: 90-61-2062Jwe Assigned At FemaleKeenan Private Hospitaltart: 08-18-2022 End: 29-04-9741Axjsmnz smoking status NHISNever smoked tobacco (finding) [facility] HospitalT[facility] smoking status NHISTobacco smoking consumption unknownDA[facility] HealthcareStart: 44-66-8419Jtj assigned at birthNot on fileDAVIS HOSPITAL AND MEDICAL [facility]ENTER HealthcareStart: 20-95-5185Wfazya identityNot on [facility]Sex Female (finding)[facility]: 81-23-1430HxjBklwldUUJF HealthcareStart: 98-45-8896Fgctddo use and exposureSmokeless tobacco non-user [facility]Start: 15-41-6357Gyahpbx of Social functionSt. Lukes [facility] Hospital Functional Status QkboRqcaudhvvfEsmiajYtxpkgnm00-33-9149Uxiktjd Health Questionnaire 2 item (PHQ- 2) [Reported][facility] Clinical Notes 06-30-2023 to 03-11-2025 Note Date & CkplJqzhHbzclmaa88-30-7420 Telephone encounter Note* Telephone Encounter - Porsche Pettit - 03/11/2025 9:18 AM EDT LVM that appointment was canceled and to call the office back to reschedule [facility] HospitalFfnagzafyu49-89-6225 Miscellaneous Notes* Telephone Encounter - Porsche Pettit - 03/11/2025 9:18 AM EDT LVM that appointment was canceled and to call the office back to reschedule documented in this encounterSt. Lukes Des Peres HospitalDuuglawygn44-36-7809 Telephone encounter Note* Telephone Encounter - Porsche Pettit - 03/10/2025 3:39 PM EDT Requesting ov notes be faxed. [phone] (fax) [facility] HospitalWpzfatfhyu02-40-5078 Miscellaneous Notes* Telephone Encounter - Porsche Pettit - 03/10/2025 3:39 PM EDT Requesting ov notes be faxed. [phone] (fax) documented in this encounterSt. Lukes Des Peres HospitalKoresdzfvg17-45-3155 History of Present illness Narrative* Darian Lindo [place], DO - 03/03/2025 3:00 PM EDT Images from the original note were not included. [facility] ARUN Rogel SUBJECTIVE: HPI: Gogo Carey is a 84 y.o. female who presents with chief complaint of New Patient Pt presents to become [facility]. Prior PCP Dr. Kerr. Pt does not remember if she had her MAWV.Pt notes that she is not able to sleep, she is having some SOB with exercise. Pt's last set of labswas several months ago. I have reviewed and reconciled the history and medication list with the patient today. History of Present Illness The patient presents to [facility], accompanied by her sister. Chronic Insomnia - The last instance of restful sleep occurred a few years ago post-surgery. - Sleep pattern involves intermittent dozing and waking, leading to daytime fatigue. - Concerned about driving due to persistent tiredness. - Prescribed sleep aids have been ineffective. - Has used gvzy-beo-ivfmtmf energy pills (2-3 as needed) and seeks advice on their use. Dental Issues - Dental issues limit her dietary intake, particularly of meat. - Diet consists mainly of scrambled eggs and macaroni and cheese. - Has eliminated soda, now consuming sparkling water and Equate. Blood work was done several weeks ago at [facility]. Her daughter manages her medication regimen, and [...] % 96 % 96 % Temp 98.7 F 98.4 F 98.6 F Height (in) 4' 10 4' 10 4' [...] - Follow up in a few weeks. Darian Blankenship DO Problem List[1] Medical History[2] [1] [...] thyroid gland Hyperlipidemia Hypertension documented in this encounterSt. Lukes Des Peres HospitalPphdqadwcn19-98-3560 History of Present illness Narrative* Moe Noyola NP - 03/19/2024 9:25 AM EST HPI: Historian of HPI: patient Gogo Carey [...] Day 3-4 take 2 tablets, Day 5-6 take1 tablet PO as directed Dispense: 12 tablet; Refill: 0 2. Cat scratch of hand, right, initial encounter Discussed. See above/below. 3. Cellulitis of right hand Diagnosis and treatment reviewed. Start augmentin (ordered when patient seen yesterday). Rest and elevate. Must follow-up with PCP Friday. Immediate eval for new or worsening symptoms. - ketorolac (Toradol) injection 60 mg documented in this encounterSt. Lukes Des Peres HospitalCpomavghhj12-21-4081 History of Present illness Narrative* Moe Noyola NP - 03/18/2024 7:40 PM EST HPI: Historian of HPI: patient Gogo Carey [...] 20 tablet; Refill: 0 documented in this encounterSt. Lukes Des Peres HospitalYhmshfskwe62-96-0365 Hospital Discharge instructions Additional Instructions Please return to emergency department for any new or worrisome symptoms including any return of abdominal pain, vomiting, fever, not not passing gas. Follow-up with your family physician within the next 3 to 5 days. Take stool softeners as directed.[facility] Work Phone: Evaluation noteNo assessment information available [facility] Work Phone: Evaluation note* Diagnosis Cat scratch of hand, right, initial encounter- Primary Cellulitis of finger of right hand documented in this encounter [facility] HealthcareEvaluation note* Diagnosis Right hand pain- Primary Pain in soft tissues of limb Cat scratch of hand, right, initial encounter Cellulitis of right hand documented in this encounter [facility] HealthcareEvaluation note* Diagnosis Disorder of thyroid gland- Primary Unspecified disorder of thyroid Mixed incontinence Mixed incontinence urge and stress (male)(female) Mixed anxiety and depressive disorder Dysthymic disorder Mixed hyperlipidemia Primary osteoarthritis, unspecified site documented in this encounter [facility] HospitalHospital Discharge instructions Additional Instructions Make sure you are drinking at least 1 and half liters of water a day. Take Metamucil daily. If you are still constipated take Colace. Still constipated after this take MiraLAX. Talk to your doctor about other pain medication options besides tramadol which may worsen constipation. Follow-up with the PCP for reevaluation 5 7 days.[facility] Work Phone: Hospital Discharge instructions Additional Instructions We gave you a dose of steroids to help with itching. Please try the Atarax for the itching as well as well as for anxiety. Additionally please use MiraLAX daily for your constipation. Please continue following closely with your primary care provider as well as your log turner. Please return to the emergency department if you develop any worsening or concerning symptoms.[facility] Work Phone: Reason for referral (narrative)No reason for referral information availableFirelands Regional Medical Center [facility] Work Phone: Summary Purpose Family History Relationship Condition Age at Onset Recorded Date/T aric Not Specified No pertinent family history Unknown Relationship Condition Age at Onset Recorded Date/T aric Not Specified No pertinent family history Unknown fatherHeart diseaseUnknownDeceasedUnknownNot SpecifiedMalignant neoplasmUnknown Relationship Condition Age at Onset Recorded Date/T aric Not Specified No pertinent family history Unknown fatherHeart diseaseUnknownDeceasedUnknownmotherMalignant neoplasmUnknown Advance Directives Advance Directive Response Recorded Date/ [...] R21 poss bowel blockage Chief Complaint R35.0 Chief Complaint Admit Date Unknown November 23, 2024 5:50 pm Additional Source Comments INFORMATION SOURCE (unrecogn ized section and content) DATE CREATED AUTHOR 10/29/[address] [facility] DATE CREATED AUTHOR AUTHOR'S ORGANIZ ATION 12/07/2020 [facility] DATE CREATED AUTHOR AUTHOR'S ORGANIZ ATION 09/19/2022 [facility] DATE CREATED AUTHOR AUTHOR'S ORGANIZ ATION 11/28/2024 [facility] DATE CREATED AUTHOR AUTHOR'S ORGANIZ ATION 02/28/2025 [facility] DATE CREATED AUTHOR AUTHOR'S ORGANIZ ATION 03/05/2025 [facility] EPIC Care Teams (unrecognized sec tion and content) Team Status: Active Member Role Status Dates Adela Baker , SHEET METAL APPRENTICE-C Primary Care Provider Active Team Status: Inactive Member Role Status Dates Adela Baker , SHEET METAL APPRENTICE-C Primary Care Provider, Referr ing Provider Active Yariel Bautista ProviderActive Team Status: Inactive Member Role Status Dates Adela Baker , SHEET METAL APPRENTICE-C Primary Care Provider Active Arti Pugh ProviderActive Team Status: Inactive Member Role Status Dates Adela Baker , SHEET METAL APPRENTICE-C Primary Care Provider Active Arti Canseco ProviderActive Team Status: Inactive Member Role Status Dates Adela Baker , SHEET METAL APPRENTICE-C Primary Care Provider Active Arti Wilcox ProviderActive Team Status: Inactive Member Role Status Dates Adela Baker , SHEET METAL APPRENTICE-C Primary Care Provider Active Start: March 02, 2023 End: March 02Arti Dunne ProviderActiveStart: March 02, 2023 End: March 02, 2023 Team Status: Inactive Member Role Status Dates Adela Baker , SHEET METAL APPRENTICE-C Primary Care Provider Active Start: May 07, 2023 End: May 07Arti Merino ProviderActiveStart: May 07, 2023 End: May 07, 2023 Team Status: Inactive Member Role Status Dates Adela Baker , SHEET METAL APPRENTICE-C Primary Care Provider Active Start: May 28, 2023 End: May 28, 2023Yariel Simms ProviderActiveStart: May 28, 2023 End: May 28, 2023 Team Status: Inactive Member Role Status Dates Adela Baker , SHEET METAL APPRENTICE-C Primary Care Provider Active Start: June 30, 2023 End: June 30Carol Ann Isbell ProviderActiveStart: June 30, 2023 End: June 30, 2023 Team Status: Inactive Member Role Status Dates Adela Baker NP-Vandana Primary Care Pr james, Attending Provider Active Start: November 09, 2023 End: November 09, 2023 Team Status: Inactive Member Role Status Dates Gay Castrejon PA-C Attending Provider Active Sta rt: November 23, 2024 End: November 23, 2024Team MemberRelationshipSpecialtyStart DateEnd Date Darian Blankenship DO [address] [place] [address] PCP - GeneralFamily Gfqvbhtz37/23/25Team MemberRelationshipSpecialtyStart Date End Date Darian Blankenship DO [address] [place] [address] PCP - GeneralFamily Egmbgkzj28/23/25Team MemberRelationshipSpecialtyStart Date End Date Darian Blankenship DO [address] [place] [address] PCP - GeneralFamily Amoxzovf42/23/25Team MemberRelationshipSpecialtyStart Date End Date Darian Blankenship DO [address] [place] [address] PCP - GeneralFamily Imdnofef11/23/25 Goals (unrecognized section and content) Goals may [...] may be documented in an alternate section Reason for Visit (unrecogniz ed section and content) ReasonOnset DateCommentsRecord Dkikufk6303/10/2025ReasonOnset DateComments Appointment Zloaatq8303/11/2025ReasonCommentsNew Patient FOR RECORDS PERTAINING TO PATIENTS WHO ARE [...] BE BASED ON THE PRIMARY CLINICAL RECORDS. [facility] [employer] [facility]. provides no warranty or guarantee of the accuracy or completeness of information in this document.
--- OUTSIDE RECORDS SUMMARY | 2025-03-13 23:56 | XMS_ITS | Encounter Summary ---
Author Organization [facility] Address [address] [facility] [place] [address] Care Team Providers Care Sheriff Officer Name Role Phone Kalen Blankenship DO Primary Care Provider [phone] Encounter Details DateTypeDepartmentCare Team (Latest Contact Info)Avmohyyhnlc92/23/2025Travel Social History Tobacco UseTypesPacks/DayYears UsedDateSmoking Tobacco: NeverSmokeless Tobacco: NeverPHQ-2AnswerDate RecordedPatient Health Questionnaire-2 Hbski520 CommentsUnknownSex and Gender InformationValueDate RecordedSex Assigned at BirthNot on fileLegal ExgCbjvru01/15/2023 6:50 PM EDTGender IdentityNot on fileSexual OrientationNot on filedocumented as of this encounter Functional Status * Over the past 2 weeks, how often have you been bothered by any of the following problems?QuestionAnswerDate of AssessmentAuthorLittle interest or pleasure in doing thingsNot at all03/03/2025 3:04 PM Francoise Dewitt MA Feeling down, depressed, or hopelessNot at all03/03/2025 3:04 PM Francoise Dewitt MAPatient Health Questionnaire-2 Ocorn062 3:04 PM Francoise Dewitt MA documented as of this encounter Plan of Treatment Not on file documented as of this encounter Visit Diagnoses Not on filedocumented in this encounter Care Teams Team MemberRelationshipSpecialtyStart DateEnd Date Kalen Blankenship DO [address] [facility] [address] [place] [address] PCP - GeneralFamily Sgbhxvjr08/23/25documented as of this encounter
--- OUTSIDE RECORDS SUMMARY | 2025-03-13 23:56 | XMS_ITS | Clinical Summary ---
Author Organization [facility] Address [address] [place] [address] Care Team Providers Care Body Bumper Name Role Phone PattieKalen Guicho DO Primary Care Provider Allergies Active AllergyReactionsCriticalityNoted YuowAdymfamkEgzocrtkwDpnzza75/25/2010 Other Reaction(s): Hallucinating, unknown Patient states she panic, out of head Medications MedicationSigDispense QuantityRefillsLast FilledStart DateEnd DateStatus amLODIPine (Norvasc) 5 MG tablet Active levothyroxine (Synthroid, Levoxyl) 88 MCG tablet Active levothyroxine (Synthroid, Levoxyl) 100 MCG tablet TAKE 1 TABLET BY MOUTH ONCE DAILY IN THE MORNING ON AN EMPTY VRMXIET1101/13/2024 Active sertraline (Zoloft) 100 MG tablet Active citalopram (CeleXA) 10 MG tablet 1 (one) time each day at the same time4Active hydrOXYzine pamoate (Vistaril) 25 MG capsule TAKE 1 CAPSULE BY MOUTH TWICE DAILY HMOLAK265Active Multiple Vitamin (Multi-Vitamin) tablet Take 1 tablet by mouth in the morning.Active polyethylene glycol, PEG, 3350 (MiraLax) 17 GM/SCOOP powder as directed OrallyActive temazepam (Restoril) 7.5 MG capsule 1 (one) time each day at the same time4Active traZODone (Desyrel) 50 MG tablet 1 (one) time each day at the same time5Active Synthroid 112 MCG tablet 5Active hydrOXYzine HCl (Atarax) 25 MG tablet 01/17/2025tive simvastatin (Zocor) 20 MG tablet 02/07/2025tive busPIRone (Buspar) 5 MG tablet Take 5 mg by mouth in the morning and 5 mg in the evening.03/03/2025Discontinued colchicine (Colcrys) 0.6 MG tablet 03/03/2025Discontinued ferrous sulfate 325 (65 Fe) MG tablet 1 tablet Orally Three times a Week03/03/2025Discontinued hydrOXYzine HCl (Atarax) 10 MG tablet TAKE 1 TO 2 TABLETS BY MOUTH EVERY DAY AT BEDTIME FOR BQZCSIE4408/11/2023 03/03/2025Discontinued LORazepam (Ativan) 0.5 MG tablet 03/03/2025Discontinued simvastatin (Zocor) 40 MG tablet 03/03/2025Discontinued predniSONE (Deltasone) 10 MG tablet Indications:Right hand painDay 1-2 take 3 tablets, Day 3-4 take 2 tablets, Day 5-6 take 1 tablet PO as directed 12 tablet Discontinued Active Problems ProblemNoted DateDiagnosed DateAbdominal pain03/03/2025ute gouty arthritis 03/03/20255692Tivcrpwfg29/23/1759Lbmdykoouqayjp31/23/2025ute thoracic myofascial ildhqb3903/03/2025djustment disorder with depressed mood03/03/2025norexia 03/03/20253927Nnvigdn50/23/2025urning mouth neiuilwj14/23/2025at zgrcbgj8103/03/2025 Roickkovjv68/23/2025ervical disc hqydwzhp18/23/2025hest wall pain03/03/2025 Cervical rczflkxoveb84/23/2025hronic mjhllmuhbrob48/23/2025onstipation 03/03/2025Difficulty fhqosbjy82/23/2025Disease due to severe acute respiratory syndrome coronavirus 2 (SARS-CoV-2)03/03/2025Disorder of thyroid gland03/03/2025 Diverticular disease of colon03/03/20252330Fptsaqt16/23/2025Fecal impaction 03/03/2025Female alhdsocdo13/23/2025Disorder of hxgdtgo9703/03/2025 Gastroesophageal reflux ixznqsl1503/03/2025History of endocrine qzeuqwqq80/23/2025 History of fall03/03/20256479Fdhpswoxfcudci94/23/0064Flzrxgca92/23/2025Itching 03/03/2025Mixed anxiety and depressive dcbbdtup78/23/2025Mixed incontinence 03/03/2025Obstructive sleep apnea03/03/2025Other specified cough03/03/2025Other specified health zjyamh7103/03/20250850Wnzrspdngt98/23/3640Acjpefqqyo23/23/2025 Bmongpbepli50/23/2025Rash and nonspecific skin licypfuq83/23/2025Restless legs 03/03/20254815Yiggqxzxihvg80/23/2025Shoulder joint pain03/03/2025Urinary tract fuvpofzbh66/23/2025 Encounters DateTypeDepartmentCare AdlmDbcppnekvfm37/31/2025Telephone [facility] [address] [place] [address] Kalen Blankenship, DO Appointment Ktlbklb3303/10/2025Telephone [facility] [address] [place] [address] Kalen Blankenship, DO Record Oaqjnog5003/03/2025 3:00 PM EDTOffice Visit [facility] [address] [place] [address] Kalen Blankenship, DO Disorder of thyroid gland (Primary Dx); Mixed incontinence; Mixed anxiety and depressive disorder; Mixed hyperlipidemia; Primary osteoarthritis, unspecified site03/03/2025amboo flowsheet [facility] [address] [place] [address] Kalen Blankenship, DO 03/03/2025Travelfrom Last 3 Months Immunizations ImmunizationAdministration DatesNext DueTd (adult), 5 Lf tetanus toxoid, preservative free, urhhtxtg01/25/2021 Family History Medical HistoryRelationNameCommentsHeart diseaseFatherColon cancerMotherThyroid diseaseMotherRelationNameStatusCommentsFatherDeceasedMotherDeceased Social History Tobacco UseTypesPacks/DayYears UsedDateSmoking Tobacco: NeverSmokeless Tobacco: Never Tobacco Cessation:Counseling Given: Yes PHQ-2AnswerDate RecordedPatient Health Questionnaire-2 Tfjsw201 CommentsUnknownSex and Gender InformationValueDate RecordedSex Assigned at Not on fileLegal MrzQwbbhh04/15/2023 6:50 PM EDTGender IdentityNot on fileSexual OrientationNot on file Last Filed Vital Signs Vital SignReadingTime TakenCommentsBlood Rwtyjvuc181/7203/03/2025 2:48 PM EDT Phbse930903/03/2025 2:48 PM IQFYuptrbmyunw68 ??C (98.6 ??F)03/03/2025 2:48 PM EDT Respiratory Rate--Oxygen Skxrvrcfko82%03/03/2025 2:48 PM EDTInhaled Oxygen Concentration--Yylcqc88 kg (205 lb)03/03/2025 2:48 PM KHVFnymhz506.3 cm (4' 10 ) 03/03/2025 2:48 PM EDTBody Mass Index42.8503/03/2025 2:48 PM EDT Plan of Treatment Health MaintenanceDue DateLast DoneCommentsMedicare Annual Wellness (AWV) 3Pneumococcal Vaccine: 65+ Years (1 of 1 - PCV)1992DTaP/Tdap/Td Vaccines (2 - Tdap)OVID-19 Vaccine (4 - 2024- season) , 09/07/2020, 08/17/2020Influenza Vaccine (#1)2025HIB VaccinesAged OutNo longer eligible based on patient's age to complete this topic HPV VaccinesAged OutNo longer eligible based on patient's age to complete this topicHepatitis A VaccinesAged OutNo longer eligible based on patient's age to complete this topicHepatitis B VaccinesAged OutNo longer eligible based on patient's age to complete this topicIPV VaccinesAged OutNo longer eligible based on patient's age to complete this topicMeningococcal B VaccineAged OutNo longer eligible based on patient's age to complete this topicMeningococcal VaccineAged OutNo longer eligible based on patient's age to complete this topicRotavirus VaccinesAged OutNo longer eligible based on patient's age to complete this topic Insurance Care Teams Team MemberRelationshipSpecialtyStart DateEnd Date Kalen Blankenship DO [address] [facility] [address] [place] [address] PCP - GeneralFaflly Thjjxeer95/23/25
--- OUTSIDE RECORDS SUMMARY | 2025-03-13 23:56 | XMS_ITS | Encounter Summary ---
Author Organization [facility] Address [address] [place] [address] Care Team Providers Care Leather Polisher Name Role Phone Kalen Blankenship DO Primary Care Provider [phone] Encounter Details DateTypeDepartmentCare Team (Latest Contact Info)Phxutdxpmeu15/23/2025amboo flowsheet [facility] [address] [place] [phone] Kalen Blankenship DO [address] [place] [address] Social History Tobacco UseTypesPacks/DayYears UsedDateSmoking Tobacco: NeverSmokeless Tobacco: NeverPHQ-2AnswerDate RecordedPatient Health Questionnaire-2 Ewvkw141 CommentsUnknownSex and Gender InformationValueDate RecordedSex Assigned at BirthNot on fileLegal HtzLwnltj33/15/2023 6:50 PM EDTGender IdentityNot on fileSexual OrientationNot on filedocumented as of this encounter Plan of Treatment Not on file documented as of this encounter Visit Diagnoses Not on filedocumented in this encounter Care Teams Team MemberRelationshipSpecialtyStart DateEnd Date Kalen Blankenship DO [address] [place] [address] PCP - GeneralFamily Jpvhzylx25/23/25documented as of this encounter
--- OUTSIDE RECORDS SUMMARY | 2025-03-13 23:56 | XMS_ITS | Encounter Summary ---
Author Organization [facility] Address [address] [place] [address] Care Team Providers Care Document Control Coordinator Name Role Phone Kalen Blankenship DO Primary Care Provider [phone] Reason for Visit * ReasonOnset DateCommentsRecord Fiuqbof7803/10/2025 Encounter Details DateTypeDepartmentCare Team (Latest Contact Info)Dlyfbexfsko77/30/2025Telephone [facility] [address] [facility] [address] [place] [phone] Kalen Blankenship DO [address] [facility] [address] [place] [address] Record Request Social History Tobacco UseTypesPacks/DayYears UsedDateSmoking Tobacco: NeverSmokeless Tobacco: NeverPHQ-2AnswerDate RecordedPatient Health Questionnaire-2 Yowny014 CommentsUnknownSex and Gender InformationValueDate RecordedSex Assigned at BirthNot on fileLegal YkpHsmaxc58/15/2023 6:50 PM EDTGender IdentityNot on fileSexual OrientationNot on filedocumented as of this encounter Miscellaneous Notes * Telephone Encounter - Ashleigh Cordova MA - 03/11/2025 3:35 PM EDT OV notes faxed * Telephone Encounter - Ashleigh Cordova MA - 03/10/2025 4:17 PM EDT Please sign ov from 03/03/25 * Telephone Encounter - Porsche Catherinesidelly - 03/10/2025 3:39 PM EDT Requesting ov notes be faxed. [phone] (fax) documented in this encounter Plan of Treatment Not on file documented as of this encounter Visit Diagnoses Not on filedocumented in this encounter Care Teams Team MemberRelationshipSpecialtyStart DateEnd Date Kalen Blankenship DO [address] [facility] [address] [facility] [address] [place] [address] PCP - GeneralFamily Igfphexw67/23/25documented as of this encounter
--- OUTSIDE RECORDS SUMMARY | 2025-03-13 23:56 | XMS_ITS | Encounter Summary ---
Author Organization [facility] Address [address] [place] [address] Care Team Providers Care Digital Watch Assembler Name Role Phone Kalen Blankenship DO Primary Care Provider [phone] Reason for Visit * ReasonOnset DateCommentsAppointment Dcsuiez9303/11/2025 Encounter Details DateTypeDepartmentCare Team (Latest Contact Info)Wuezhelvzme69/31/2025Telephone [facility] [address] [facility] [address] [place] [phone] Kalen Blankenship DO [address] [facility] [address] [place] [address] Appointment Request Social History Tobacco UseTypesPacks/DayYears UsedDateSmoking Tobacco: NeverSmokeless Tobacco: NeverPHQ-2AnswerDate RecordedPatient Health Questionnaire-2 [id number] CommentsUnknownSex and Gender InformationValueDate RecordedSex Assigned at BirthNot on fileLegal CkmZfmnan01/15/2023 6:50 PM EDTGender IdentityNot on fileSexual OrientationNot on filedocumented as of this encounter Miscellaneous Notes * Telephone Encounter - Porsche Pettit - 03/11/2025 9:18 AM EDT LVM that appointment was canceled and to call the office back to reschedule documented in this encounter Plan of Treatment Not on file documented as of this encounter Visit Diagnoses Not on filedocumented in this encounter Care Teams Team MemberRelationshipSpecialtyStart DateEnd Date Kalen Blankenship DO [address] [address] PCP - GeneralFamily Tejpvxgo25/23/25documented as of this encounter
--- OUTSIDE RECORDS SUMMARY | 2025-03-13 23:56 | XMS_ITS | Clinical Summary ---
Author Organization [facility] Address [address] [place] [address] Care Team Providers Care Interpretive Program Coordinator Name Role Phone Vidal Madison Primary Care Provider [phone] Allergies Active AllergyReactionsCriticalityNoted DateCommentsno allergies to latex [Other]Other: See Rfnrecvo66/26/2010Oxycodone PdbGxngrf54/25/2010 Patient states she panic, out of head Medications MedicationSigDispense QuantityRefillsLast FilledStart DateEnd DateStatus levothyroxine sodium(LEVOXYL 88 MCG TAB) take one by mouth in the ragqhas635ctive sertraline hcl(ZOLOFT 100 MG TAB) Take one(1) tablet daily.ctive amlodipine besylate(NORVASC 5 MG TAB) Take one(1) tablet daily.ctive simvastatin 40 mg ORAL tablet Take 40 mg by mouth daily at bedtime.Active multivitamin ORAL tablet Take 1 tablet by mouth once daily.Active ibuprofen 800 mg tablet Take 1 tablet by mouth every 8 hours as needed for Pain.ctive cholecalciferol, vitamin D3, 400 unit cap Take 1 capsule by mouth once daily.ctive ascorbic acid (VITAMIN C) 500 mg tablet Take 1 tablet by mouth once daily.ctive tolterodine LA (DETROL LA) 4 mg 24 hr capsule Take 1 capsule by mouth once daily.ctive CALCIUM ORAL Take by mouth once daily.Active MAGNESIUM ORAL Take by mouth once daily.Active busPIRone (BUSPAR) 5 mg tablet Take 5 mg by mouth twice daily.Active Active Problems No known active problems Family History Medical HistoryRelationCommentshypothyroid [Other]MotherRelationStatusComments Mother Social History Tobacco UseTypesPacks/DayYears UsedDateSmoking Tobacco: NeverSmokeless Tobacco: NeverAlcohol UseStandard Drinks/WeekCommentsNot Asked0 (1 standard drink = 0.6 oz pure alcohol)Area Deprivation IndexAnswerDate RecordedNational Score (1-100), lower number is lower riskNot on file04/16/2020State Score (1-10), lower number is lower riskNot on file04/16/2020Data from: https://www.neighborhoodatlas.[facility].edu/. Last address used for calculationNot on file04/16/2020CommentsNoSex and Gender Information ValueDate RecordedSex Assigned at BirthNot on fileLegal TedKchznj51/02/2012 8:29 AM ESTGender IdentityNot on fileSexual OrientationNot on file Last Filed Vital Signs Vital SignReadingTime TakenCommentsBlood Nsgkuhuf738/9704/14/2012 9:06 AM EST (from Extended Vitals)Cvqao325404/14/2012 9:06 AM EST(from Extended Vitals) Uahryypyaqv62 ??C (98.6 ??F)04/14/2012 8:57 AM ESTRespiratory Kdtu214206/15/2011 8:57 AM ESTOxygen Vmgsntghzg58%12/19/2009 3:00 PM EDTInhaled Oxygen Concentration--Phghuj44.7 kg (200 lb)04/14/2012 8:57 AM JUOCgzqsm320.1 cm (4' 11.88 )04/14/2012 8:57 AM ESTBody Mass Index39. 8:57 AM EST Plan of Treatment Health MaintenanceDue DateLast DoneCommentsAnxiety Aozgvvoif73/18/1961Depression Tqklurqry85/18/1961DTaP,Tdap,Td Vaccine (1 - Tdap)2Pneumococcal Vaccine: 50+ (1 of 1 - PCV)1992Shingrix Vaccine (1 of 2)1992Bone Density Btkugylpr28/18/2008Diabetes Zhetocpyx11/21/, 12/13/2009RSV Vaccine (1 - 1-dose 75+ series)2017Advance Directive Cwomocphsq83/01/2025 Covid-19 Vaccine ( season)2025Influenza Vaccine (#1)2025 Medical Devices ImplantedTypeAreaManufacturerDevice IdentifierShelf Expiration DateModel / Serial / LotMesh Prolene [id number] Pml - [id number] [facility] SZMQIOR5111/09/2013PML / / [id number]:Prolene mesh 12 x 12Mesh Vicryl [id number] Vkml - [id number] Implanted:Qty: [facility] BQCOFQV4505/12/2014VKML / / [id number]:Vicryl mesh 12 x 12Sling Monarc Subfacial - [id number] Implanted:Qty: 1 on 12/18/2009 at [facility] DCIKVIQ1809/25/[id number] / / [id number] Procedures Procedure NamePriorityDate/TimeAssociated DiagnosisCommentsBASIC METABOLIC PANEL STAT12/30/2009 3:44 PM EDT Smokehouse Operator Exam from Last 3 Months or Most Recently Relevant to Health Maintenance Results * (ABNORMAL) BASIC METABOLIC PNL (12/30/2009 3:44 PM EDT)ComponentValueRef Range Test MethodAnalysis TimePerformed AtPathologist RxkvfqjghVnluund2281 - 100 mg/dLGEORGETOWN [facility] VMZXSMAXDCBML386 - 25 mg/dLHIGHLAND DISTRICT HOSPITAL LABORATORYCreatinine0.69(L)0.70 - 1.40 mg/dLHIGHLAND DISTRICT HOSPITAL LABORATORY Vtwyif157633 - 148 mmol/LCASHTABULA [facility] MAIN LABORATORYPotassium4.23.5 - 5.0 mmol/LCTOLEDO HOSPITALAND RICE [facility] MAIN OIKKFDNABQFyilqofj74610 - 110 mmol/LCASHTABULA COUNTY [facility] MAIN ZIAVFRTOEWUV68208 - 32 mmol/LCASHTABULA [facility] MAIN LABORATORYAnion Xsh881 - 15 mmol/LCASHTABULA COUNTY [facility] MAIN OPBUUDILBLHxmxmsk02.48.5 - 10.5 mg/dL [facility] LABORATORYSpecimen (Source)Anatomical Location / LateralityCollection Method / VolumeCollection TimeReceived TimeBlood specimen (specimen)BLOOD SPECIMEN / Ymscytz5412/30/2009 3:44 PM EDT12/30/2009 4:01 PM EDT Narrative Authorizing ProviderResult TypeResult StatusJennifer M Sample PA-CLABORATORY Final ResultPerforming OrganizationAddressCity/State/ZIP CodePhone Number [facility] [address] [place] [address] from Last 3 Months or Most Recently Relevant to Health Maintenance Insurance Care Teams Team MemberRelationshipSpecialtyStart DateEnd Date Vidal Madison DO PCP - GeneralFamily Sfqmkmtf20/4/12
--- NOTE | 2025-03-14 00:15 | XR_ITS ---
The [address] [address] Patient Name: GOGO CAREY MRN: [id number] date: 1940 Sex: F Assigned Patient Location: ER Current Patient Location: [place] Accession/Order Number: [id number] Exam Date: 03/14/2025 00:42 Report Date: 03/14/2025 07:37 At the request of: JUAN A TORRES MD Procedure: XR knee LT 3V CLINICAL DATA: Patient fell and has pain at the left hip and knee. LEFT HIP WITH AP PELVIS - 3 views COMPARISON: 11/23/2024 AP view of the pelvis as well as AP and frog-lateral views of the left hip were obtained. No fracture or dislocation is identified. The hip joint spaces are symmetric and there is mild marginal spurring. Enthesophytes are again seen at the iliac crests, greater trochanters and ischial tuberosities. There is mild sclerosis at the SI joints. Dextroscoliotic curvature and degenerative change is seen at the lower imaged lumbar spine. No soft tissue abnormalities are present. XR/XR hip LT 2V w/ pelvis IMPRESSION: DEGENERATIVE CHANGES. NO ACUTE BONY FINDINGS. LEFT KNEE - 3 views COMPARISON: Left femur 11/23/2024 AP, lateral and internal oblique views were obtained. A knee prosthesis is present. The hardware appears intact and unchanged from the prior. There is no developing fracture or dislocation. A trace amount of joint fluid is seen. There is no significant soft tissue swelling. IMPRESSION: STABLE KNEE REPLACEMENT. NO ACUTE BONY FINDINGS. Impression dictated by: Noelle Pagan M.D. 03/14/2025 7:37 AM Dictation Location: [place] [address] Electronically authenticated by: [id number] Y Date: 03/14/2025 07:37
--- NOTE | 2025-03-14 00:15 | XR_ITS ---
The [address] [address] Patient Name: GOGO CAREY MRN: [id number] date: 1940 Sex: F Assigned Patient Location: ER Current Patient Location: [place] Accession/Order Number: [id number] Exam Date: 03/14/2025 00:42 Report Date: 03/14/2025 07:37 At the request of: JUAN A TORRES MD Procedure: XR knee LT 3V CLINICAL DATA: Patient fell and has pain at the left hip and knee. LEFT HIP WITH AP PELVIS - 3 views COMPARISON: 11/23/2024 AP view of the pelvis as well as AP and frog-lateral views of the left hip were obtained. No fracture or dislocation is identified. The hip joint spaces are symmetric and there is mild marginal spurring. Enthesophytes are again seen at the iliac crests, greater trochanters and ischial tuberosities. There is mild sclerosis at the SI joints. Dextroscoliotic curvature and degenerative change is seen at the lower imaged lumbar spine. No soft tissue abnormalities are present. XR/XR knee LT 3V IMPRESSION: DEGENERATIVE CHANGES. NO ACUTE BONY FINDINGS. LEFT KNEE - 3 views COMPARISON: Left femur 11/23/2024 AP, lateral and internal oblique views were obtained. A knee prosthesis is present. The hardware appears intact and unchanged from the prior. There is no developing fracture or dislocation. A trace amount of joint fluid is seen. There is no significant soft tissue swelling. IMPRESSION: STABLE KNEE REPLACEMENT. NO ACUTE BONY FINDINGS. Impression dictated by: Noelle Pagan M.D. 03/14/2025 7:37 AM Dictation Location: [place] [address] Electronically authenticated by: [id number] Y Date: 03/14/2025 07:37
--- NOTE | 2025-03-14 00:16 | ED_ITS ---
HPI HPI - Extremity Injury (Lower) General Chief Complaint: Extremity Injury, Lower Stated Complaint: FALL Time Seen by Provider: 03/14/25 00:11 Source: patient Mode of arrival: ambulance History of Present Illness HPI Narrative: got up to go to the bathroom and loss her balance. Fell striking her forehead. Grants a pop in her left knee. Not able to get up due to the knee pain and presents via squad. Denies LOC, nausea or vomiting. Complains of knee pain Related Data Home Medications ?Medication ?Instructions ?Recorded ?Confirmed amlodipine 5 mg tablet 5 mg PO DAILY 12/13/2203/13 simvastatin 20 mg tablet 20 mg PO DAILY 12/13/2207/06 citalopram 10 mg tablet mg 07/11/24 hydroxyzine pamoate 25 mg capsule mg 07/11/24 levothyroxine 112 mcg tablet mcg 07/11/24 Previous Rx's ?Medication ?Instructions ?Recorded bisacodyl 5 mg tablet,delayed 5 mg PO DAILY #10 tabs 0 12/02/23 release (Dulcolax (bisacodyl)) xiyalstnhymshcf-wdotobwlrfedrww-ZR 10 ml PO Q8H PRN co ugh #118 mL 07/11/24 2 mg-30 mg-10 mg/5 mL oral syrup (Bromfed DM) prednisone 20 mg tablet 40 mg (2 x 20 mg) PO DAILY 5 days 07/11/24 #10 tabs cephalexin 500 mg capsule 500 mg PO BID 10 days #20 ca ps 11/23/24 Allergies Allergy/AdvReac Type Severity Reaction Status Date / Time No Known Drug Allergies Allergy Verified 12/02/23 14:40 Opioid HPI Opioid Management Most Recent Pain and Opioid Data: 2 Last Pain Scale 3 03/13/25, 23:51 Review of Systems 2 ROS0 Status of ROS 10 or more systems reviewed and unremark able except as noted in history and below PFSH PFS Social History Smoking status: Never smoker Little interest or pleasure in doing things: not at all Feeling down, depressed, or hopeless: not at all Exam Constitutional Vital Signs, click to edit/add: Last Vital Signs Temp 98.3 F 03/13/25 23:51 Pulse 69 03/13/25 23:51 Resp 16 03/13/25 23:51 BP 144/93 H 03/13/25 23:51 Pulse Ox 97 03/13/25 23:51 O2 Del Method Room Air 03/13/25 23:51 Common normals: no apparent distress, average body habitus, oriented x3, healthy appearing, alert and well nourished [facility] Face and sinus images: 2 1. mild contusion Eye Common normals: PERRL, EOMs intact bilaterally and conjunctivae normal Respiratory Common normals: normal respiratory effort, no retractions, no use of accessory muscles and clear to auscultation bilaterally Cardio Common normals: regular rate, regular rhythm, S1 normal heart sound and S2 normal heart sound GI Other: decreased ROM left knee. has puffiness overlying her patella which she states is chronic Neuro Common normals: oriented x3, CN's II-XII intact bilaterally, moves all extremities and no focal motor deficits Psych Appearance: grossly normal Course Vital Signs Vital signs: Vital Signs Temperature 98.3 F 03/13/25 23:51 Pulse Rate 69 03/13/25 23:51 Respiratory Rate 16 03/13/25 23:51 Blood Pressure 144/93 H 03/13/25 23:51 Pulse Oximetry 97 03/13/25 23:51 Oxygen Delivery Method Room Air 03/13/25 23:51 Temperature 98.3 F 03/13/25 23:51 Pulse Rate 69 03/13/25 23:51 Respiratory Rate 16 03/13/25 23:51 Blood Pressure 144/93 H 03/13/25 23:51 Pulse Oximetry 97 03/13/25 23:51 Oxygen Delivery Method Room Air 03/13/25 23:51 MDM - Extremity Injury (Lower) MDM Narrative Medical decision making narrative: patient loss her balance at home and fell injuring her left knee. Also struck her forehead. No LOC or neck pain. Main complaint is left knee pain. CT brain and C-spine without acute changes. xrays of her left hip and knee per my preliminary review without acute findings. Patient given morphine for pain. She continues to complain of pain of the left knee. Provided with a knee immobilizer and still not able to bear weight. UA with findings of UTI> Discussed with the hospitalist and will plan obs admission to get PT involved Discharge Plan Discharge Chief Complaint: Extremity Injury, Lower Clinical Impression: UTI (urinary tract infection), Minor head injury, Strain of left knee Patient Disposition: Admitted as Observation
[2025-03-14 00:19] LABS: Glucose Urine UA NEGATIVE (NEGATIVE)
[2025-03-14 00:29] LABS: Cast Seen? NONE SEEN #/LPF (NONE SEEN); Crystals Seen? None Seen #/HPF (None Seen); Urine Culture Indicated YES-FRMC
[2025-03-14 00:39] LABS: Hematocrit 42.7 % (36.0-48.0); Hemoglobin 14.1 g/dL (12.0-16.0); Immature Granulocytes Abs Auto 0.03 10^3/uL (0.00-0.03); Immature Granulocytes Pct Auto 0.4 % (0.0-0.5); Lymphocytes Absolute Auto 1.7 10^3/uL (1.2-3.8); Mean Corpuscular HGB Conc 33.0 g/dL (29.9-35.2); Mean Corpuscular Hemoglobin 29.7 pg (26.7-34.0); Mean Corpuscular Volume 90.1 fL (81.0-99.0); Platelet Count 322 10^3/uL (150-450); Red Blood Count 4.74 10^6/uL (4.20-5.40); White Blood Count 6.8 10^3/uL (4.0-11.0)
[2025-03-14 00:46] LABS: Anion Gap 12.5; Blood Urea Nitrogen 23.0 mg/dL (7.0-18.0); Calcium 9.2 mg/dL (8.5-10.1); Carbon Dioxide 26.5 mmol/L (21.0-32.0); Chloride 105 mmol/L (98-107); Estimated GFR (African America >60 (>=60 mL/min/1.73m^2); Estimated GFR (Non-African Ame 52 (>=60 mL/min/1.73m^2); Glucose 95 mg/dL (74-106); Potassium 4.0 mmol/L (3.5-5.1); Sodium 140 mmol/L (136-145)
[2025-03-14 02:48] VITALS: BP 139/86; PULSE 59; TEMP 37.1; O2SAT 95
[2025-03-14] MEDS: MORPHINE SULFATE 2 MG/ML SYRINGE IV (03:10)
--- OUTSIDE RECORDS SUMMARY | 2025-03-14 04:47 | XMS_ITS | CCD ---
Author Organization [facility] Care Team Providers Care Cripple Worker Name Role Phone PHYSICIAN, DEFAULT Unavailable Unavailable PHYSICIAN, DEFAULT Unavailable Unavailable PHYSICIAN, DEFAULT Unavailable Unavailable PHYSICIAN, DEFAULT Unavailable Unavailable RAMINENI, GONZALEZ K Unavailable Unavailable RAMINENI, GONZALEZ K Unavailable Unavailable UNKNOWN, PHYSICIAN Unavailable Unavailable UNKNOWN, PHYSICIAN Unavailable Unavailable RAMINENI, GONZALEZ K Unavailable Unavailable RAMINENI, GONZALEZ K Unavailable Unavailable UNKNOWN, PHYSICIAN Unavailable Unavailable UNKNOWN, PHYSICIAN Unavailable Unavailable [place] Unavailable Unavailable RAMINENI, GONZALEZ K Unavailable Unavailable RAMINENI, GONZALEZ K Unavailable Unavailable RAMINENI, GONZALEZ K Unavailable Unavailable UNKNOWN, PHYSICIAN Unavailable Unavailable UNKNOWN, PHYSICIAN Unavailable Unavailable LAURA Baker Adela Belkys Primary Care Provider [phone] LAURA Baker Adelakayley Rizvi Referring Provider [phone] MD Lukas Fried Attending Provider DO Jay [...] Provider LAURA Baker Primary Care Provider [phone] Juliano Juan M Emergency Provider DO Camille Dennison Emergency Provider MD Carine Montoya Attending Provider LAURA Baker Belkys Primary Care Provider MD Ashleigh Jackson Emergency Provider LAURA Baker Belkys Primary Care Provider LAURA Baker Attending Provider Unavailable Primary Care Provider UnavailGay Wallace PA-C Attending Provider [phone] Gay Castrejon Attending Unavailable Gay Castrejon Admitting Unavailable Umu Garvin DDS Attending Unavailable Darian Blankenship DO Primary Care Provider DARIAN BLANKENSHIP Attending Unavailable ELISABETHMOE ERWIN Attending Unavailable ELISABETH, MOE L Attending Unavailable ELISABETH MOE L Referring Unavailable Allergies Allergy ClassificationReported Allergen(s)Allergy TypeDate of OnsetReaction(s) Facility (1 source)NO KNOWN DRUG ALLERGIES; Translations: [NO KNOWN DRUG ALLERGIES] Propensity to adverse reactions (disorder)[phone] Repository (1 source)No Known Allergies; Translations: [No Known Allergies]Propensity to adverse reactions (disorder)[facility] Repository (16 sources)oxyCODONE; Translations: [oxycodone]Drug Xihxenk17-68-5698 [facility] (1 source)Acetaminophen / oxyCODONEDrug AllergyThe [facility] Medications Current Medications MedicationDrug Class(es)DatesSig (Normalized)Sig (Original)amLODIPine 5 mg oral tablet (10 sources)Dihydropyridine Calcium Channel BlockeramLODIPine (Norvasc) 5 MG tablet Activecitalopram 10 mg oral tablet (4 sources)Serotonin Reuptake InhibitorStart: 67-05-8507lknxczhygf (CeleXA) 10 MG tablet 1 (one) time each day at the same time 03/30/2024 Activedocusate sodium 100 mg oral capsule (11 sources)Start: 10-99-1485wyif 1 capsule by mouth twice dailyDULoxetine 60 mg delayed release oral capsule (9 sources)Serotonin and Norepinephrine Reuptake InhibitorStart: 95-17-1068qryf 1 capsule by mouth once dailyhydrOXYzine hydrochloride 25 mg oral tablet (20 sources)AntihistamineStart: 64-25-8456ajyrRNNknoz HCl (Atarax) 25 MG tablet 01/17/2025 ActiveStart: 07-01-7198jjsa 1 capsule by mouth twice daily as needed hydrOXYzine pamoate (Vistaril) 25 MG capsule TAKE 1 CAPSULE BY MOUTH TWICE DAILY NEEDED 06/23/2024 ActiveStart: 08-11-2023 End: 44-57-0667usvv 1-2 tablets by mouth once daily at bedtimehydrOXYzine HCl (Atarax) 10 MG tablet TAKE 1 TO 2 TABLETS BY MOUTH EVERY DAY AT BEDTIME FOR IWHEKEW7208/11/2023 03/03/2025 DiscontinuedStart: 57-29-5636tufj 1 tablet by mouth every eight hours as neededlevothyroxine sodium 0.112 mg oral tablet (20 sources)l-ThyroxineStart: 61-51-8835Jisyyohml 112 MCG tablet 01/09/2025 ActiveStart: 68-51-8094kxmm 1 tablet by mouth once daily in the morning levothyroxine (Synthroid, Levoxyl) 100 MCG tablet TAKE 1 TABLET BY MOUTH ONCE DAILY IN THE MORNING ON AN EMPTY STOMACH 01/13/2024 ActiveStart: 69-38-9502povt 1 tablet by mouth once dailymeloxicam 15 mg oral tablet (9 sources)Nonsteroidal Anti-inflammatory DrugStart: 59-61-4949rnbn 1 tablet by mouth once dailyMineral Oil (5 sources)Start: 56-83-3059wazm 1 mL by mouth once dailyMineral Oil Active 15 ML PO Daily 1200 December 15, 2022 11:00pmStart: 39-53-4555ufnl 1 mL by mouth once dailyMineral Oil Active 15 ML PO Daily 1200 December 16, 2022 12:00am Mineral Oil oil (1 source)Start: 80-18-9701rjek 1 mL by mouth once daily as needed for constipationMultiple Vitamin (Multi-Vitamin) tablet (4 sources)take 1 tablet by mouth in the morningMultiple Vitamin (Multi-Vitamin) tablet Take 1 tablet by mouth in the morning. Activepolyethylene glycol 3350 69298 mg powder for oral solution (20 sources)Osmotic LaxativeStart: 97-43-6648kjiykupf 400 mg oral capsule (1 source)Start: 17-59-5157Mvesvchc Husk (Metamucil) 0.4 gram capsule (7 sources)Start: 40-05-4572Oewdtbyn Husk (Metamucil) 0.4 gram capsule Active 0.4 GM PO Daily August 17, 2022 11:00pmStart: 28-88-0776Xqalpqhp Husk (Metamucil) 0.4 gram capsule Active 0.4 GM PO Daily August 18, 2022 12:00amSennosides (Senna) 8.6 mg capsule (2 sources)Start: 65-02-5101rsoe 1 capsule by mouth twice dailySennosides (Senna) 8.6 mg capsule Active 8.6 MG PO Twice daily 22 11June 30, 2023 1:00amStart: 65-79-1535gczj 1 capsule by mouth twice dailySennosides (Senna) 8.6 mg capsule Active 8.6 MG PO Twice daily 22 11June 30, 2023 12:00am sennosides, snf 8.6 mg oral capsule (1 source)Start: 43-20-4149oxvw 1 capsule by mouth twice daily as needed for constipationsertraline 100 mg oral tablet (10 sources)Serotonin Reuptake Inhibitorsertraline (Zoloft) 100 MG tablet Active simvastatin 20 mg oral tablet (20 sources)HMG-CoA Reductase InhibitorStart: 76-19-8798rjizkhqhigw (Zocor) 20 MG tablet 02/07/2025 ActiveStart: 01-20-2017 End: 68-76-3381iwwl 1 tablet by mouth once dailytemazepam 7.5 mg oral capsule (4 sources)BenzodiazepineStart: 65-57-8999tmroyxpxa (Restoril) 7.5 MG capsule 1 (one) time each day at the same time 03/30/2024 ActivetraMADol hydrochloride 50 mg oral tablet (9 sources)Opioid AgonistStart: 63-59-4150Niczc: 85-11-7891Jzykowtv Active 0.5 TAB PO EVERY 1-4 HOURS January 20, 2017 12:00amtraZODone hydrochloride 50 mg oral tablet (4 sources)Serotonin Reuptake InhibitorStart: 94-44-0825trbDEDwpa (Desyrel) 50 MG tablet 1 (one) time each day at the same time 08/17/2024 Active Completed/Discontinued Medications MedicationDrug Class(es)DatesSig (Normalized)Sig (Original)amoxicillin 875 mg / clavulanate 125 mg oral tablet (11 sources)Penicillin-class AntibacterialStart: 03-18-2024 End: 69-59-1552hlux 1 tablet by mouth in the morningamoxicillin-clavulanate (Augmentin) 875-125 MG tablet Indications: Cellulitis of finger of right hand Take 1 tablet (875 mg) by mouth in the morning and 1 tablet (875 mg) before bedtime. Do all this for 10 days. 20 tablet 03/18/2024 03/28/2024 ExpiredStart: 10-93-3059nrea 1 tablet by mouth twice dailybusPIRone hydrochloride 5 mg oral tablet (8 sources) End: 01-29-3914xjwt 1 tablet by mouth in the morningbusPIRone (Buspar) 5 MG tablet Take 5 mg by mouth in the morning and 5 mg in the evening. 03/03/2025 Discontinuedcolchicine 0.6 mg oral tablet (8 sources) End: 96-25-7890wwqfprecfu (Colcrys) 0.6 MG tablet 03/03/2025 Discontinuedferrous sulfate 325 mg oral tablet (8 sources) End: 95-37-5260wkpi 1 tablet by mouth three times weeklyferrous sulfate 325 (65 Fe) MG tablet 1 tablet Orally Three times a Week 03/03/2025 Discontinued2 ml ketorolac tromethamine 30 mg/ml cartridge (4 sources)Nonsteroidal Anti-inflammatory Drug, Cyclooxygenase InhibitorStart: 03-19-2024 End: 71-12-7504moscepiig (Toradol) injection 60 mgStart: 03-19-2024 End: 39-72-939413 mg, Intramuscular, Once, On Fri03/19/24 at 1045, For 1 dose, Age >= 65 yrs: Max daily dose: 60 mg. Max duration: 5 days total ketorolac durationStart: 03-19-2024 End: 35-78-0293hqoflcdba (Toradol) injection 60 mgStart: 03-19-2024 End: 46-04-120482 mg, Intramuscular, Once, On Fri03/19/24 at 1045, For 1 dose, Age >= 65 yrs: Max daily dose: 60 mg. Max duration: 5 days total ketorolac durationLORazepam 0.5 mg oral tablet (8 sources)Benzodiazepine End: 64-86-1937HYOcwlddr (Ativan) 0.5 MG tablet 03/03/2025 Discontinued predniSONE 10 mg oral tablet (15 sources)Start: 03-19-2024 End: 48-30-9970vrddbxNOZZ (Deltasone) 10 MG tablet Indications: Right hand pain Day 1-2 take 3 tablets, Day 3-4 take 2 tablets, Day 5-6 take 1 tablet PO as directed 12 tablet 03/19/2024 03/03/2025 DiscontinuedStart: 62-68-5565ckxf 3 tablets by mouth once daily at mealtimeStart: 71-91-2913cbxs 60 mg by mouth once daily at mealtimePrednisone Active 60 MG PO Daily 15 February 01, 2017 12:00am administer with food or milk Problems Active Problems Problem ClassificationProblemDateDocumented DateEpisodic/ChronicAbdominal pain (4 sources)Abdominal pain; Translations: [Unspecified abdominal pain]Onset: 783083-35-5421WjszeqejLoopyrvsrs disorders (4 sources)Adjustment disorder with depressed mood; Translations: [Adjustment disorder with depressed mood]Onset: 845821-66-0520GsaeyuqMnxuzde disorders (15 sources)Anxiety; Translations: [Anxiety disorder, unspecified]Onset: 348633-51-1260FxqninlDpfziwvn of mouth; excluding dental (4 sources)Burning mouth syndrome ; Translations: [Glossodynia]Onset: 03-03-2025 80-26-0859MwarasukYmnnlpjcs of lipid metabolism (7 sources)Hyperlipidemia, unspecified; Translations: [Hyperlipidemia]Onset: 810706-71-5622FadtbwqBcrlbcwychikmq and diverticulitis (4 sources)Diverticulosis of colon; Translations: [Diverticulosis of large intestine without perforation or abscess without bleeding]Onset: 03-03-2025 22-70-2807OkdtofzG Codes: Natural/environment (4 sources)Cat scratch - wound; Translations: [Scratched by cat, initial encounter]Onset: 226386-04-8338OjbgnwstDhmtmlntdc disorders (4 sources)Gastroesophageal reflux disease; Translations: [Gastro-esophageal reflux disease without esophagitis]Onset: 719158-99-1331MseybxvNtdkhycrt hypertension (1 source)Essential (primary) hypertension; Translations: [ESSENTIAL (PRIMARY) HYPERTENSION]Onset: 78-62-9815PwoilkvEuvnnsnxyzsli symptoms and ill-defined conditions (6 sources)Incontinence; Translations: [Mixed incontinence]Onset: 03-03-2025 51-03-2689BbmgzwfHlon and other crystal arthropathies (13 sources)Articular gout; 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, unspecified]Onset: 03-03-2025 04-05-7107PbjtqzkCmlziaekeb obstruction without hernia (19 sources)Fecal impaction; Translations: [Fecal impaction]Onset: 07-22-2022 53-16-6348TunxyoabFewoncz and fatigue (4 sources)Fatigue; Translations: [Other fatigue]Onset: EpisodicMenopausal disorders (1 source)Hormone replacement therapy; Translations: [HORMONE REPLACEMENT THERAPY]Onset: 89-85-4439SqarystfIfdbgmxupws chest pain (4 sources)Chest wall pain; Translations: [Other chest pain]Onset: 03-03-2025 73-04-5111QlieohgrHzbnteqwzqsttq (13 sources)Primary osteoarthritis, right shoulder; Translations: [Arthritis] Onset: 289632-51-3409BspdezqUmgft aftercare (1 source)Other snf (current) drug therapy; Translations: [OTH GAL[place] BOY CURRENT DRUG THERAPY]Onset: 21-10-7263FeumnqieHkhnp bone disease and musculoskeletal deformities (1 source)Other osteonecrosis, right shoulder; Translations: [OTHER OSTEONECROSIS, RIGHT SHOULDER]Onset: 38-04-1957BqgetviNxpzp connective tissue disease (1 source)Presence of right artificial shoulder joint; Translations: [PRESENCE OF RIGHT ARTIFICIAL SHOULDER JOINT]Onset: 71-09-2041YptexoqHjgob connective tissue disease (2 sources)Pain in right hand; Translations: [Pain in right hand]03-19-2024 EpisodicOther diseases of bladder and urethra (4 sources)Disorder of bladder; Translations: [Bladder disorder, unspecified] Onset: 577336-24-4482PsteukpAmjgp gastrointestinal disorders (20 sources)Constipation; Translations: [Constipation, unspecified]Onset: 109003-47-1925PgnxbxugSnarr gastrointestinal disorders (4 sources)Constipation, unspecified; Translations: [CONSTIPATION UNSPECIFIED] Onset: 26-97-9529TodyealrMizwh gastrointestinal disorders (9 sources)Chronic constipation; Translations: [Other constipation]Onset: 511337-46-2202PlwvcilgSpdbw hereditary and degenerative nervous system conditions (4 sources)Restless legs; Translations: [Restless legs syndrome]Onset: 850892-21-4319TlmvwvxGdctv inflammatory condition of skin (9 sources)Itching ; Translations: [Pruritus, unspecified]Onset: 03-03-2025 85-25-3623LhpqlhxpElrjt injuries and conditions due to external causes (4 sources)History of fall; Translations: [History of falling]Onset: 03-03-2025 94-99-8901RmtarfazMxtpi lower respiratory disease (4 sources)Cough; Translations: [Other specified cough]Onset: 03-03-2025 82-23-0941FlgmqxwbZtdvq nervous system disorders (4 sources)Taste sense altered; Translations: [Parageusia]Onset: 03-03-2025 26-82-1109TbxgfovyNuhja nervous system disorders (4 sources)Paresthesia; Translations: [Paresthesia of skin]Onset: 03-03-2025 36-35-4219ScpndonkDfqwy non-traumatic joint disorders (4 sources)Shoulder joint pain; Translations: [Pain in unspecified shoulder] Onset: 169001-67-1697RmcevzdvCusyw nutritional; endocrine; and metabolic disorders (4 sources)Loss of appetite; Translations: [Anorexia]Onset: EpisodicOther nutritional; endocrine; and metabolic disorders (4 sources)H/O: endocrine disorder; Translations: [Personal history of other endocrine, nutritional and metabolic disease]Onset: 213711-68-5410Ieoiablg Other nutritional; endocrine; and metabolic disorders (4 sources)Overweight; Translations: [Overweight]Onset: EpisodicOther skin disorders (9 sources)Eruption; Translations: [Rash and other nonspecific skin eruption] Onset: 583251-83-8102WkgxfgrjYdbyuutw of female genital organs (4 sources)Cystocele; Translations: [Cystocele, unspecified]Onset: 03-03-2025 24-23-6317QkbxhdbEyzjztca codes; unclassified (4 sources)Obstructive sleep apnea syndrome; Translations: [Obstructive sleep apnea (adult) (pediatric)]Onset: 377273-71-3746QzddojoSdlkaeoc codes; unclassified (4 sources)Restlessness; Translations: [Restlessness and agitation]Onset: 327576-18-0024EjbjlgiCnzzvkjm codes; unclassified (9 sources)Difficulty sleeping ; Translations: [Sleep disorder, unspecified] Onset: 103863-13-7830DllfabfzFzioldcd codes; unclassified (4 sources)Insomnia; Translations: [Insomnia, unspecified]Onset: 03-03-2025 52-69-3035IabxldxaCxoabnnf codes; unclassified (4 sources)Other specified health status; Translations: [Other specified conditions influencing health status]Onset: 288236-00-4634CwudzvqbHvlq and subcutaneous tissue infections (15 sources)Cellulitis; Translations: [Cellulitis, unspecified]Onset: 03-03-2025 18-59-7022TqtdyhxsHsrnilcyfzx; intervertebral disc disorders; other back problems (8 sources)Cervical disc disorder; Translations: [Cervical disc disorder, unspecified, unspecified cervical region]Onset: hronic Sprains and strains (20 sources)Strain of muscle(s) and tendon(s) of the rotator cuff of right shoulder, subsequent encounter; Translations: [Strain of muscle(s) and tendon(s) of the rotator cuff of right shoulder, initial encounter]Onset: 01-15-2017 58-74-5674RzaihyirFyyoxdlxeey injury; contusion (4 sources)Cat scratch injury; Translations: [Abrasion of right hand, initial encounter]80-26-4772ZuqjnnalFrrknby disorders (10 sources)Disorder of thyroid, unspecified; Translations: [Disorder of thyroid gland]Onset: 77-78-8259VgzqbbnaFdyzkmavetum (2 sources)Unknown / UNK(Unknown)Onset: 27-18-6216Gluurdd tract infections (4 sources)Urinary tract infectious disease; Translations: [Urinary tract infection, site not specified]Onset: 661448-98-5765PbsapnopUkxnj infection (4 sources)Disease caused by 2019-nCoV; Translations: [COVID-19]Onset: 299433-45-3115Zdmvcuqj Past or Other Problems Problem ClassificationProblemDateDocumented DateEpisodic/ChronicDeficiency and other anemia (1 source)Anemia, unspecified; Translations: [ANEMIA UNSPECIFIED]Onset: 95-69-4157LjbwjuhvHvwvnsox mellitus without complication (1 source)Other abnormal glucose; Translations: [OTHER ABNORMAL GLUCOSE]Onset: 03-61-6883KebpbqrrAhmgt connective tissue disease (1 source)Unspecified rotator cuff tear or rupture of right shoulder, not specified as traumatic; Translations: [UNSP ROTATR-CUFF TEAR/RUPTR OF RIGHT SHOULDER, NOT TRAUMA]Onset: 99-05-1672Qayzidtk Results Test NameValueInterpretationReference RangeFacilityUrine Cultureon 11-23-2024 Bacteria identified Cx Nom (U)ORGANISM: Escherichia coli (O:ESCCOL) [place] Count >100,000 Aerobic SARI Charge (NMIC56) SUSCEPTIBILITY [...] RESISTANT TO ALL B-LACTAM DRUGS. PERFORMED BY: [place] [address] PATHOLOGIST CUT OUT OPERATOR HERSON CORNELIUS M.D.[facility] Physician GroupComment on above: Performed By: #### [facility] #### [place] [address] USAXR HAND 3+ VIEWS RIGHTon 25-80-2552ID HAND 3+ VIEWS RIGHT EXAM: XR HAND [...] MARY OLMSTEAD MD at 19-Mar-2024 10:24:34 AM [facility] TeleradiologyNormalNot AvailableXR Hand - right 3 Viewson 15-14-3920DHJJ: XR HAND 3+ VIEWS RIGHT HISTORY: Cat [...] MARY OLMSTEAD MD at 19-Mar-2024 10:24:34 AM [facility] Telerad[facility] Rose Mary Nuñez MD - 03/19/2024 [...] MARY OLMSTEAD MD at 19-Mar-2024 10:24:34 AM [facility] Teleradiology [facility] HealthcareRadiology Study observation (narrative)[facility] HealthcareXR Hand - right 3 ViewsOrdered By: Rose Mary Olmstead on 17-00-8629[facility] Work Phone: Bacteria [Presence] in Urine by AutomatedOrdered By: Adela Baker on 53-19-2776Ggkmoopn Auto Ql (U)4+ [HPF]HighNone SeenGreen Cross HospitalBilirubin Test strip Ql (U)Ordered By: Adela Baker on 32-59-8033Nrondutod Ql (U)NegativeNegativeGreen Cross Hospital Calcium oxalate crystals [Presence] in Urine by Computer assisted methodOrdered By: Adela Baker on 48-18-9721Kzbyjli oxalate crystals Computer assisted Ql (U) 3+ [HPF]Green Cross HospitalColor Auto (U)Ordered By: Adela Baker on 14-40-8532Yplxw (U)Light-yellowYellowGreen Cross Hospital Crystals.amorphous [Presence] in Urine by Computer assisted methodOrdered By: Adela Baker on 47-05-0767Rgrqepst.amorphous Computer assisted Ql (U)Rare [HPF] [facility] Cross HospitalEpithelial cells.squamous [#/area] in Urine sediment by Automated countOrdered By: Adela Baker on 96-11-7323Ctcivgxomy cells.squamous Auto (Urine sed) [#/Area]1-2 [HPF]0-2FSt. Vincent HospitalErythrocytes [#/area] in Urine sediment by Automated countOrdered By: Adela Baker on 73-68-9333GRK Auto (Urine sed) [#/Area]3-4 [HPF]0-4FSt. Vincent HospitalGlucose [Mass/volume] in Urine by Test stripOrdered By: Adela Baker on 19-41-6109Bzoitlg Test strip (U) [Mass/Vol]Normal mg/dLNormal [facility] HospitalHemoglobin Test strip Ql (U)Ordered By: Adela Baker on 69-66-3435Gixmamvuyd Ql (U)NegativeNegativeGreen Cross HospitalHyaline casts [#/area] in Urine sediment by Automated countOrdered By: Adela Baker on 76-65-1708Awgxnwz casts Auto (Urine sed) [#/Area]0-8 [LPF]0-8 [facility] HospitalKetones Test strip Ql (U)Ordered By: Adela Baker on 98-62-9979Rahcmiz Ql (U)NegativeNegativeGreen Cross HospitalLeukocyte esterase [Presence] in Urine by Test stripOrdered By: Adela Baker on 99-70-2152Fkakciene esterase Test strip Ql (U)NegativeNegative [facility] HospitalLeukocytes [#/area] in Urine sediment by Automated countOrdered By: Adela Baker on 14-29-8213RQE Auto (Urine sed) [#/Area]3-4 [HPF]0-4FSt. Vincent HospitalMucus [Presence] in Urine by AutomatedOrdered By: Adela Baker on 14-10-2803Oqyzi Auto Ql (U)1+ [LPF] AbnormalFirwhitmans Regional Medical CenterNitrite Test strip Ql (U)Ordered By: Adela Baker on 89-03-4345Ifqqggs Ql (U)NegativeNegativeGreen Cross HospitalProtein Test strip (U) [Mass/Vol]Ordered By: Adela Baker on 81-07-3433Zrlovye (U) [Mass/Vol]NegativeNegativeBrown Memorial Hospitalpecific gravity Test strip (U) [Rel density]Ordered By: Adela Baker on 23-84-1945Qglkwhko gravity (U) [Rel density]1.0111.001-1.030Green Cross HospitalUrine appearanceOrdered By: Adela Baker on 70-32-2718Riwyehzdih (U)CloudyAbnormalClearFSt. Vincent HospitalUrobilinogen Test strip (U) [Mass/Vol]Ordered By: Adela Baker on 85-86-9491Unxdfxjodaiw (U) [Mass/Vol] Normal mg/dLNormalGreen Cross HospitalpH Test strip (U)Ordered By: Adela Baker on 68-24-0312jY (U)6.0 [pH]5.0-9.0Green Cross HospitalAlanine aminotransferase [Enzymatic activity/volume] in Serum or Plasma Ordered By: Ashleigh Jackson on 68-57-0553ICV [Catalytic activity/Vol]11 U/L7-52 [facility] HospitalAlbumin [Mass/volume] in Serum or Plasma by Bromocresol green (BCG) dye binding methoOrdered By: Ashleigh Jackson on 62-57-2510Kbmqjfx BCG dye [Mass/Vol]4.0 g/dL3.5-5.7FSt. Vincent HospitalAlkaline phosphatase [Enzymatic activity/volume] in Serum or PlasmaOrdered By: Ashleigh Jackson on 47-17-3464XZD [Catalytic activity/Vol]67 U/L34-104 [facility] HospitalAspartate aminotransferase [Enzymatic activity/volume] in Serum or PlasmaOrdered By: Ashleigh Jackson on 08-14-8480NID [Catalytic activity/Vol]19 U/D84-52QauolvsqxGreen Cross HospitalBasophils Auto (Bld) [#/Vol]Ordered By: Ashleigh Jackson on 95-25-9945Mqypqfunp (Bld) [#/Vol]0.0 10*3/uL0.0-0.2FSt. Vincent HospitalBasophils/100 WBC Auto (Bld)Ordered By: Ashleigh Jackson on 02-26-3408Rnetzqwor/100 WBC (Bld)0.5 %. [facility] HospitalBilirubin Test strip Ql (U)Ordered By: Ashleigh Jackson on 78-12-8059Ngymhmzta Ql (U)NegativeNegativeGreen Cross HospitalBilirubin.total [Mass/volume] in Serum or PlasmaOrdered By: Ashleigh Jackson on 24-67-9303Oznkdczzx [Mass/Vol]0.6 mg/dL0.3-1.0[facility] HospitalCalcium [Mass/volume] in Serum or PlasmaOrdered By: Ashleigh Jackson on 60-50-9318Ueqvxyp [Mass/Vol]9.6 mg/dL8.6-10.3FSt. Vincent Hospital Carbon dioxide, total [Moles/volume] in Serum or PlasmaOrdered By: Ashleigh Jackson on 14-60-1808EH0 [Moles/Vol]22.0 mmol/L21.0-31.0[facility] HospitalChloride [Moles/volume] in Serum or PlasmaOrdered By: Ashleigh Jackson on 32-26-2752Hcfwpemq [Moles/Vol]107 mmol/U51-249PvealvrmdGreen Cross HospitalColor Auto (U)Ordered By: Ashleigh Jackson on 97-39-0301Ohcas (U) YellowYellowGreen Cross HospitalCreatinine [Mass/volume] in Serum or PlasmaOrdered By: Ashleigh Jackson on 86-90-4211Wtnxryddun [Mass/Vol]0.94 mg/dL 0.60-1.20[facility] HospitalEosinophils Auto (Bld) [#/Vol]Ordered By: Ashleigh Jackson on 14-64-3746Tikfayneyzk (Bld) [#/Vol]0.1 10*3/uL0.0-0.45 [facility] HospitalEosinophils/100 WBC Auto (Bld)Ordered By: Ashleigh Jackson on 18-37-9829Hryxettgjfs/100 WBC (Bld)2.0 %.Green Cross HospitalErythrocyte distribution width Auto (RBC) [Ratio]Ordered By: Ashleigh Jackson on 88-94-9102Cwlrfyqkslg distribution width (RBC) [Ratio]14.5 % 11.9-15.3FSt. Vincent HospitalGlobulin Calc (S) [Mass/Vol]Ordered By: Ashleigh Jackson on 28-04-3682Utpmreqs (S) [Mass/Vol]2.8 g/dLGreen Cross HospitalGlucose [Mass/volume] in Serum or PlasmaOrdered By: Ashleigh Jackson on 65-06-2559Vkxrsos [Mass/Vol]93 mg/aS53-917DythprhruGreen Cross HospitalComment on above:ADA recommended reference rangeRandom Glucose Reference Range is dependent on time and content of last meal. Glucose of more than 200 mg/dL in a nonstressed, ambulatory subject supports the diagnosisof Diabetes Mellitus.Hematocrit Auto (Bld) [Volume fraction]Ordered By: Ashleigh Jackson on 81-11-9850Qaidrtiyqp (Bld) [Volume fraction]41.2 %34.0-46.4FSt. Vincent HospitalHemoglobin [Mass/volume] in BloodOrdered By: Ashleigh Jackson on 52-77-3705Yitbavwuyx (Bld) [Mass/Vol]13.7 g/dL11.8-15.4FSt. Vincent HospitalKetones Auto test strip (U) [Mass/Vol]Ordered By: Ashleigh Jackson on 61-92-3903Kayozqy (U) [Mass/Vol]NegativeNegativeGreen Cross HospitalLeukocytes [#/volume] corrected for nucleated erythrocytes in Blood by Automated counOrdered By: Ashleigh Jackson on 83-16-6327HSJ corrected for nucl RBC Auto (Bld) [#/Vol]7.4 10*3/uL3.8-11.6FSt. Vincent Hospital Lipase [Enzymatic activity/volume] in Serum or PlasmaOrdered By: Ashleigh Jackson on 74-45-2706Lwzrsm [Catalytic activity/Vol]38.0 U/L11.0-82.0Green Cross HospitalLymphocytes Auto (Bld) [#/Vol]Ordered By: Ashleigh Jackson on 10-47-1955Zgndrrlgexl (Bld) [#/Vol]1.6 10*3/uL1.00-4.8[facility] HospitalLymphocytes/100 WBC Auto (Bld)Ordered By: Ashleigh Jackson on 06-30-2023 Lymphocytes/100 WBC (Bld)21.3 %.[facility]H Auto (RBC) [Entitic mass]Ordered By: Ashleigh Jackson on 49-23-6024MHI (RBC) [Entitic mass] 29.9 pg24.7-34.3FSt. Vincent HospitalMCHC Auto (RBC) [Mass/Vol] Ordered By: Ashleigh Jackson on 71-81-0840GFKR (RBC) [Mass/Vol]33.3 g/dL32.0-35.0 [facility] HospitalMCV Auto (RBC) [Entitic vol]Ordered By: Ashleigh Jackson on 88-29-1006PCW (RBC) [Entitic vol]90.0 fC61-199FhvqwtlbkGreen Cross HospitalMonocyte distribution width [Entitic volume] in Blood by Automated Ordered By: Ashleigh Jackson on 17-14-5172Bzrlkjvl distribution width Auto (Bld) [Entitic vol]19.27 %0.00-20.00[facility] HospitalMonocytes Auto (Bld) [#/Vol]Ordered By: Ashleigh Jackson on 67-42-4940Afkkbjvex (Bld) [#/Vol]0.8 10*3/uL0.0-0.8[facility] HospitalMonocytes/100 WBC Auto (Bld) Ordered By: Ashleigh Jackson on 41-23-9373Skeoaxlta/100 WBC (Bld)10.4 %.[facility] HospitalNeutrophils Auto (Bld) [#/Vol]Ordered By: Ashleigh Jackson on 75-04-5153Kekrcftaqix (Bld) [#/Vol]4.8 10*3/uL1.8-7.7FSt. Vincent HospitalNeutrophils/100 WBC Auto (Bld)Ordered By: Ashleigh Jackson on 49-29-1909Uslgwphfulz/100 WBC (Bld)65.8 %.[facility] Nitrite Test strip Ql (U)Ordered By: Ashleigh Jackson on 04-33-5065Kxdklcj Ql (U) NegativeNegativeGreen Cross HospitalNo Panel InformationOrdered By: Ashleigh Jackson on 99-41-7855Jkibjioma GFR (CKD-EPI)> 60.0 mL/MinGreen Cross HospitalPharmacy Creatinine Clearance (Chem47.58[facility] HospitalNucleated erythrocytes [Presence] in Blood by Automated countOrdered By: Ashleigh Jackson on 55-21-8666Jefcqzbjv RBC Auto Ql (Bld)0.1 /100{WBC}0-0.5FSt. Vincent HospitalPlatelet mean volume Auto (Bld) [Entitic vol]Ordered By: Ashleigh Jackson on 78-08-3487Dsjvpoih mean volume (Bld) [Entitic vol]8.1 fL6.3-10.7FSt. Vincent HospitalPlatelets Auto (Bld) [#/Vol]Ordered By: Ashleigh Jackson on 00-33-1083Iwaxpidhr (Bld) [#/Vol]304 10*3/yB376-819IomvtqesfGreen Cross HospitalPotassium [Moles/volume] in Serum or PlasmaOrdered By: Ashleigh Jackson on 80-88-7092Ltsoeyzgq [Moles/Vol]4.4 mmol/L3.5-5.1FSt. Vincent HospitalProtein Auto test strip (U) [Mass/Vol]Ordered By: Ashleigh Jackson on 61-13-4004Guduazv (U) [Mass/Vol]Negative NegativeGreen Cross HospitalProtein [Mass/volume] in Serum or PlasmaOrdered By: Ashleigh Jackson on 05-02-1172Pxzkljt [Mass/Vol]6.8 g/dL6.4-8.9 [facility] HospitalRBC Auto (Bld) [#/Vol]Ordered By: Ashleigh Jackson on 96-19-2471XUF (Bld) [#/Vol]4.57 10*6/uL3.60-5.00[facility] Hospitalerum or plasma albumin/globulin mass ratioOrdered By: Ashleigh Jackson on 58-32-9305Ntiphpz/Globulin [Mass ratio]1.4 {ratio}[facility] Hospitalerum or plasma anion gap determinationOrdered By: Ashleigh Jackson on 16-81-2746Xkrtl gap [Moles/Vol]See comment6.0-15.0[facility] HospitalComment on above:Specimen hemolyzed, redraw requestedSodium [Moles/volume] in Serum or PlasmaOrdered By: Ashleigh Jackson on 01-49-9857Juahma [Moles/Vol]137 mmol/B892-029EhbkpakzvBrown Memorial Hospitalpecific gravity Auto test strip (U) [Rel density]Ordered By: Ashleigh Jackson on 26-70-4063Dluwqmrp gravity (U) [Rel density]1.0181.001-1.030[facility] HospitalUrea nitrogen [Mass/volume] in Serum or PlasmaOrdered By: Ashleigh Jackson on 06-72-6501Pvui nitrogen [Mass/Vol]16 mg/dL7-25[facility] HospitalUrine clarity by refractometry automatedOrdered By: Ashleigh Jackson on 40-31-2237Vygofti Refractometry automated (U)ClearCleSelect Medical [facility] Hospital, AvonUrine glucose measurement by automated test strip (mass/volume)Ordered By: Ashleigh Jackson on 59-68-0349Zqtobhr Auto test strip (U) [Mass/Vol]Normal mg/dLNoUniversity Hospitals Portage Medical CenterUrine hemoglobin detection by automated test stripOrdered By: Ashleigh Jackson on 87-42-6376Qabvizuhbr Auto test strip Ql (U) NegativeNegDayton VA Medical CenterUrine leukocyte esterase detection by automated test stripOrdered By: Ashleigh Jackson on 06-30-2023 Leukocyte esterase Auto test strip Ql (U)NegativeNegDayton VA Medical CenterUrobilinogen Auto test strip (U) [Mass/Vol]Ordered By: Ashleigh Jackson on 68-91-9552Vfyonpxcrdxk (U) [Mass/Vol]Normal mg/dLNormChillicothe HospitalWBC Auto (Bld) [#/Vol]Ordered By: Ashleigh Jackson on 57-40-8215EDT (Bld) [#/Vol]7.4 10*3/uL3.8-11.6FSt. Vincent Hospital pH Auto test strip (U)Ordered By: Ashleigh Jackson on 64-81-5972yU (U)6.0 [pH] 5.0-9.0[facility] HospitalAlanine aminotransferase [Enzymatic activity/volume] in Serum or PlasmaOrdered By: Carine Montoya on 52-25-2376DHB [Catalytic activity/Vol]13 U/L7-52[facility] HospitalAlbumin [Mass/volume] in Serum or Plasma by Bromocresol green (BCG) dye binding metho Ordered By: Carine Montoya on 55-03-9009Jltbnti BCG dye [Mass/Vol]4.1 g/dL 3.5-5.7FSt. Vincent HospitalAlkaline phosphatase [Enzymatic activity/volume] in Serum or PlasmaOrdered By: Carine Montoya on 23-40-9501UDZ [Catalytic activity/Vol]76 U/C83-336DifoawycmGreen Cross HospitalAspartate aminotransferase [Enzymatic activity/volume] in Serum or PlasmaOrdered By: Carine Montoya on 00-56-1981YAU [Catalytic activity/Vol]20 U/Y53-00FpvcnisjcGreen Cross HospitalBasophils Auto (Bld) [#/Vol]Ordered By: Carine Montoya on 82-47-8750Fbxazvqne (Bld) [#/Vol]0.0 10*3/uL0.0-0.2FSt. Vincent HospitalBasophils/100 WBC Auto (Bld)Ordered By: Carine Montoya on 05-28-2023 Basophils/100 WBC (Bld)0.5 %.[facility] HospitalBilirubin.total [Mass/volume] in Serum or PlasmaOrdered By: Carine Montoya on 05-28-2023 Bilirubin [Mass/Vol]0.7 mg/dL0.3-1.0[facility] HospitalCalcium [Mass/volume] in Serum or PlasmaOrdered By: Carine Montoya on 61-92-2929Cfkuyqb [Mass/Vol]9.5 mg/dL8.6-10.3FSt. Vincent HospitalCarbon dioxide, total [Moles/volume] in Serum or PlasmaOrdered By: Carine Montoya on 05-28-2023 CO2 [Moles/Vol]26.5 mmol/L21.0-31.0[facility] HospitalChloride [Moles/volume] in Serum or PlasmaOrdered By: Carine Montoya on 05-28-2023 Chloride [Moles/Vol]108 mmol/C60-576GozmltbfaGreen Cross HospitalCreatinine [Mass/volume] in Serum or PlasmaOrdered By: Carine Montoya on 05-28-2023 Creatinine [Mass/Vol]0.87 mg/dL0.60-1.20[facility] Eosinophils Auto (Bld) [#/Vol]Ordered By: Carine Montoya on 05-28-2023 Eosinophils (Bld) [#/Vol]0.2 10*3/uL0.0-0.45[facility] Eosinophils/100 WBC Auto (Bld)Ordered By: Carine Montoya on 05-28-2023 Eosinophils/100 WBC (Bld)3.5 %.[facility] HospitalErythrocyte distribution width Auto (RBC) [Ratio]Ordered By: Carine Montoya on 05-28-2023 Erythrocyte distribution width (RBC) [Ratio]14.6 %11.9-15.3FSt. Vincent HospitalErythrocyte sedimentation rate by Photometric methodOrdered By: Carine Montoya on 30-16-5306MQK Photometric method (Bld) [Velocity]29 mm/hr0-29 [facility] HospitalGlobulin Calc (S) [Mass/Vol]Ordered By: Carine Montoya on 55-86-0645Jxbhlefr (S) [Mass/Vol]2.7 g/dLGreen Cross HospitalGlucose [Mass/volume] in Serum or PlasmaOrdered By: Carine Montoya on 0010Nnbdxtj [Mass/Vol]87 mg/oI24-176UekurtnhhGreen Cross Hospital Comment on above:ADA recommended reference rangeRandom Glucose Reference Range is dependent on time and content of last meal. Glucose of more than 200 mg/dL in a nonstressed, ambulatory subject supports the diagnosisof Diabetes Mellitus. Hematocrit Auto (Bld) [Volume fraction]Ordered By: Carine Montoya on 05-28-2023 Hematocrit (Bld) [Volume fraction]41.5 %34.0-46.4FSt. Vincent HospitalHemoglobin [Mass/volume] in BloodOrdered By: Carine Montoya on 05-28-2023 Hemoglobin (Bld) [Mass/Vol]13.9 g/dL11.8-15.4FSt. Vincent Hospital Leukocytes [#/volume] corrected for nucleated erythrocytes in Blood by Automated counOrdered By: Carine Montoya on 72-43-9317LGU corrected for nucl RBC Auto (Bld) [#/Vol]5.6 10*3/uL3.8-11.6FSt. Vincent HospitalLymphocytes Auto (Bld) [#/Vol]Ordered By: Carine Montoya on 43-07-9080Ucdutlzzbej (Bld) [#/Vol]1.4 10*3/uL1.00-4.8[facility] HospitalLymphocytes/100 WBC Auto (Bld)Ordered By: Carine Montoya on 22-66-3373Nrasazntisf/100 WBC (Bld)24.6 %.[facility] Auto (RBC) [Entitic mass]Ordered By: Carine Montoya on 33-38-5688ZMF (RBC) [Entitic mass]30.5 pg24.7-34.3FSt. Vincent HospitalMCHC Auto (RBC) [Mass/Vol]Ordered By: Carine Montoya on 05-45-9686LYON (RBC) [Mass/Vol]33.6 g/dL32.0-35.0[facility] HospitalMCV Auto (RBC) [Entitic vol]Ordered By: Carine Montoya on 67-06-5856LMO (RBC) [Entitic vol]90.8 rG99-674AzuudovqaGreen Cross HospitalMonocytes Auto (Bld) [#/Vol]Ordered By: Cairne Montoya on 26-97-9219Madgiypoo (Bld) [#/Vol]0.7 10*3/uL0.0-0.8[facility] HospitalMonocytes/100 WBC Auto (Bld) Ordered By: Carine Montoya on 79-41-7723Lawcbdsrt/100 WBC (Bld)12.7 %.[facility] HospitalNeutrophils Auto (Bld) [#/Vol]Ordered By: Carine Montoya on 81-07-9133Dgbplyrumhb (Bld) [#/Vol]3.3 10*3/uL1.8-7.7FSt. Vincent HospitalNeutrophils/100 WBC Auto (Bld)Ordered By: Carine Montoya on 34-90-7043Vsplrmxpgny/100 WBC (Bld)58.7 %.[facility] No Panel InformationOrdered By: Carine Montoya on 02-69-4626Kxpdhplhc GFR (CKD-EPI)> 60.0 mL/MinGreen Cross HospitalPharmacy Creatinine Clearance (ChemN/AFSt. Vincent HospitalNucleated erythrocytes [Presence] in Blood by Automated countOrdered By: Carine Montoya on 05-28-2023 Nucleated RBC Auto Ql (Bld)0.1 /100{WBC}0-0.5FSt. Vincent Hospital Platelet mean volume Auto (Bld) [Entitic vol]Ordered By: Carine Montoya on 66-09-9223Vvynukkw mean volume (Bld) [Entitic vol]8.1 fL6.3-10.7FSt. Vincent HospitalPlatelets Auto (Bld) [#/Vol]Ordered By: Carine Montoya on 30-32-8302Ldtqqodgq (Bld) [#/Vol]289 10*3/zG079-892EmxpwbyrwGreen Cross HospitalPotassium [Moles/volume] in Serum or PlasmaOrdered By: Carine Montoya on 68-95-4593Mcaimxcra [Moles/Vol]4.5 mmol/L3.5-5.1FSt. Vincent HospitalProtein [Mass/volume] in Serum or PlasmaOrdered By: Carine Montoya on 15-99-3535Uxmxoli [Mass/Vol]6.8 g/dL6.4-8.9[facility] HospitalRBC Auto (Bld) [#/Vol]Ordered By: Carine Montoya on 87-06-6534ATV (Bld) [#/Vol]4.57 10*6/uL3.60-5.00[facility] Hospitalerum or plasma albumin/globulin mass ratioOrdered By: Carine Montoya on 05-28-2023 Albumin/Globulin [Mass ratio]1.5 {ratio}[facility] Hospitalerum or plasma anion gap determinationOrdered By: Carien Montoya on 34-21-4633Hxqcl gap [Moles/Vol]11.0 mmol/L6.0-15.0[facility] Hospitalodium [Moles/volume] in Serum or PlasmaOrdered By: Carine Montoya on 30-30-8962Kuetwk [Moles/Vol]141 mmol/F608-194RbprvkgnkGreen Cross HospitalThyrotropin [Units/volume] in Serum or PlasmaOrdered By: Carine Montoya on 48-52-9098XHP Qn 13.24 m[IU]/L0.45-5.33[facility] HospitalThyroxine (T4) free [Mass/volume] in Serum or PlasmaOrdered By: Carine Montoya on 77-62-7936Xvgb T4 [Mass/Vol]0.67 ng/dL0.61-1.12[facility] HospitalUrea nitrogen [Mass/volume] in Serum or PlasmaOrdered By: Carine Montoya on 29-64-9743Qxvt nitrogen [Mass/Vol]21 mg/dL7-25[facility] HospitalWBC Auto (Bld) [#/Vol]Ordered By: Carine Montoya on 13-70-5869FMT (Bld) [#/Vol]5.6 10*3/uL 3.8-11.6FSt. Vincent HospitalGlucose Glucometer (BldC) [Mass/Vol] Ordered By: Camille Dennison on 67-47-0770Ngwwuic [Mass/Vol]115 mg/dLGreen Cross HospitalComment on above:Random Glucose Reference Range is dependent on time and content of last meal. Glucose of more than 200 mg/dL in a nonstressed, ambulatory subject supports the diagnosis of Diabetes Mellitus.CBC AUTO DIFFon 18-48-6659PFOK #0.0 103/ulNormal0.0-0.1[facility] HospitalComment on above:Performed By: #### CMP, LIPID, TSH, T7 #### [facility] [address] [place], [place] [address] Dr. Grace Washingtonphils/100 WBC (Bld)0.3 %Normal0.2-2.0The [facility] Comment on above:Performed By: #### CMP, LIPID, TSH, T7 #### [facility] [address] [place], [place] [address] Dr. Grace Garnett #0.1 103/ulNormal0.0-0.7The [facility] HospitalComment on above: Performed By: #### CMP, LIPID, TSH, T7 #### [facility] [address] [place] [address] Dr. Grace Carranzaosinophils/100 WBC (Bld)1.3 %Normal0.9-7.0The [facility] Comment on above:Performed By: #### CMP, LIPID, TSH, T7 #### [facility] [address] [place] [address] Dr. Grace Carranzarythrocyte distribution width (RBC) [Ratio]13.8 %Fvxgsk79.0-15.0 [facility] HospitalComment on above:Performed By: #### CMP, LIPID, TSH, T7 #### [facility] [address] [place] [address] Dr. Grace DurandHematocrit (Bld) [Volume fraction]42.9 %Qdhpho38.0-48.0The [facility] HospitalComment on above:Performed By: #### CMP, LIPID, TSH, T7 #### [facility] [address] [place] [address] Dr. Grace DurandHemoglobin (Bld) [Mass/Vol]14.2 g/oJMuiaas49.0-16.0The [facility]omerene Hospitalment on above:Performed By: #### CMP, LIPID, TSH, T7 #### [facility] [address] [place] [address] Dr. Grace Lord #0.02 10e3/ulNormal0.00-0.03The [facility]omerene Hospitalment on above:Performed By: #### CMP, LIPID, TSH, T7 #### [facility] [address] [place] [address] Dr. Grace Lord %0.3 %Normal0.0-0.5The [facility] HospitalComment on above: Performed By: #### CMP, LIPID, TSH, T7 #### [facility] [address] [place] [address] Dr. Grace Bravo #1.6 103/ulNormal1.2-3.8The [facility] HospitalComment on above:Performed By: #### CMP, LIPID, TSH, T7 #### [facility] [address] [place] [address] Dr. Grace Pedersonmphocytes/100 WBC (Bld)22.8 %Kanvdz66.5-60.0The [facility] HospitalComment on above:Performed By: #### CMP, LIPID, TSH, T7 #### [facility] [address] [place] [address] Dr. Grace Galvan DIFF REQNONormalThe [facility] HospitalComment on above: Performed By: #### CMP, LIPID, TSH, T7 #### [facility] [address] [place] [address] Dr. Grace Manuel (RBC) [Entitic mass]30.0 acPlbqhp19.7-34.0The [facility] HospitalComment on above:Performed By: #### CMP, LIPID, TSH, T7 #### [facility] [address] [place] [address] Dr. Grace Manuel (RBC) [Mass/Vol]33.1 g/eTRszgeh98.9-35.2The [facility] Hospitalment on above:Performed By: #### CMP, LIPID, TSH, T7 #### [facility] [address] [place] [address] Dr. Grace Manuel (RBC) [Entitic vol]90.5 wEPsewkn58.0-99.0[facility] on above:Performed By: #### CMP, LIPID, TSH, T7 #### [facility] [address] [place] [address] Dr. Grace Almanza #0.7 103/ulNormal0.3-0.8[facility] on above:Performed By: #### CMP, LIPID, TSH, T7 #### [facility] [address] [place] [address] Dr. Grace Okeefeocytes/100 WBC (Bld)10.4 %Normal1.7-12.0The [facility] Comment on above:Performed By: #### CMP, LIPID, TSH, T7 #### [facility] [address] [place] [address] Dr. Grace Sultana #4.6 103/ulNormal1.4-6.5The [facility] HospitalComment on above:Performed By: #### CMP, LIPID, TSH, T7 #### [facility] [address] [place] [address] Dr. Grace Matuteutrophils/100 WBC (Bld)64.9 %Ozplwh87.0-75.0The [facility] HospitalComment on above:Performed By: #### CMP, LIPID, TSH, T7 #### [facility] [address] [place] [address] Dr. Grace Flores mean volume (Bld) [Entitic vol]9.6 fLNormal9.5-13.5The [facility] HospitalComment on above:Performed By: #### CMP, LIPID, TSH, T7 #### [facility] [address] [place] [address] Dr. Grace DurandPLT297 103/vuEdeeno420-514Pfv [facility] HospitalComment on above: Performed By: #### CMP, LIPID, TSH, T7 #### [facility] [address] [place] [address] Dr. Grace DurandRBC4.74 106/ulNormal4.20-5.40The [facility] HospitalComment on above:Performed By: #### CMP, LIPID, TSH, T7 #### [facility] [address] [place] [address] Dr. Grace DurandWBC7.0 103/ulNormal4.0-11.0The [facility] HospitalComment on above: Performed By: #### CMP, LIPID, TSH, T7 #### [facility] [address] [place] [address] Dr. Grace DurandCT ABD/PELV W CONon 28-10-8598OE ABD/PELV W CONCT ABDOMEN AND PELVIS WITH [...] Electronically authenticated by: HECTOR GONZALEZ Date: 2022-09-16 19:29NormUC Medical Centere [facility] HospitalLACTATE/LACTIC ACIDon 88-83-8841Cyetgvl [Moles/Vol]1.7 mmol/L Normal0.4-2.0The [facility] HospitalComment on above:Performed By: #### LACT #### [facility] [address] [place] [address] Dr. Grace uDrandPROF CHEM 8 (BAS METB)on 70-42-2864Birht gap [Moles/Vol]12.9 mmol/LNormalThe [facility] HospitalComment on above:Performed By: #### BMP #### [facility] [address] [place] [address] Dr. Grace DurandCalcium [Mass/Vol]9.5 mg/dLNormal8.5-10.1The [facility] Comment on above:Performed By: #### BMP #### [facility] [address] [place] [address] Dr. Grace DurandChloride [Moles/Vol]107 mmol/XIcnxub16-660Uzo [facility] Comment on above:Performed By: #### BMP #### [facility] [address] [place] [address] Dr. Grace DurandCO2 [Moles/Vol]23.6 mmol/URfhgmv14.0-32.0The [facility] Comment on above:Performed By: #### BMP #### [facility] [address] [place] [address] Dr. Grace DurandCreatinine [Mass/Vol]1.14 mg/dLCritically high0.55-1.02The [facility] HospitalComment on above:Performed By: #### BMP #### [facility] [address] [place] [address] Dr. Grace CarranzaGFR-AF ZOKOTRDB20 mL/min/1.59o2Rzmgvxzknc low>=60The [facility] HospitalComment on above:Performed By: #### BMP #### [facility] [address] [place] [address] Dr. Grace CarranzaGFR-NON AF BVRWEEFA82 mL/min/1.23n5Vigmksmrre low>=60The [facility] HospitalComment on above:Performed By: #### BMP #### [facility] [address] [place] [address] Dr. Grace DurandGlucose [Mass/Vol]120 mg/dLCritically lact52-938Znf [facility] HospitalComment on above:Performed By: #### BMP #### [facility] [address] [place] [address] Dr. Grace DurandPotassium [Moles/Vol]3.5 mmol/LNormal3.5-5.1[facility] Comment on above:Performed By: #### BMP #### [facility] [address] [place] [address] Dr. Grace DurandSodium [Moles/Vol]140 mmol/KCzbkdp462-353Ffl [facility] Comment on above:Performed By: #### BMP #### [facility] [address] [place] [address] Dr. Grace DurandUrea nitrogen [Mass/Vol]14.0 mg/dLNormal7.0-18.0The [facility] HospitalComment on above:Performed By: #### BMP #### [facility] [address] [place] [address] Dr. Grace DurandUrea nitrogen/Creatinine [Mass ratio]12.3 mg/mgNoACMC Healthcare System GlenbeighComment on above:Performed By: #### BMP #### [facility] [address] [place] [address] Dr. Grace DurandXR ABD FLAT UP_PA Jack 07-03-5843UI ABD FLAT UP_PA CHEXAMINATION: XR ABD FLAT [...] Electronically authenticated by: LUKAS HENRY Date: 2022-07-20 16:03[facility] HospitalT4 LABCORPon [id number] [Mass/Vol]6.6 ug/dLNormal4.5-12.0The [facility] HospitalComment on above:Performed By: #### T4LC #### [facility] [address] [place] [address] Dr. Grace DurandINSULINon 44-43-0057Rvletaa8.4 uIU/mLNormal2.6-24.9The [facility] HospitalComment on above:Performed By: #### CMP, LIPID, TSH, T7 #### [facility] [address] [place] [address] Dr. Grace Fonseca AUTO DIFFon [id number] #0.0 103/ulNormal0.0-0.1The [facility] HospitalComment on above:Performed By: #### CMP, LIPID, TSH, T7 #### [facility] [address] [place] [address] Dr. Grace DurandBasophils/100 WBC (Bld)0.4 %Normal0.2-2.0The [facility] Comment on above:Performed By: #### CMP, LIPID, TSH, T7 #### [facility] [address] [place] [address] Dr. Grace Garnett #0.2 103/ulNormal0.0-0.7The [facility] HospitalComment on above: Performed By: #### CMP, LIPID, TSH, T7 #### [facility] [address] [place] [address] Dr. Grace Carranzaosinophils/100 WBC (Bld)3.1 %Normal0.9-7.0The [facility] Comment on above:Performed By: #### CMP, LIPID, TSH, T7 #### [facility] [address] [place] [address] Dr. Grace Carranzarythrocyte distribution width (RBC) [Ratio]13.6 %Jxdicn32.0-15.0 The [facility] HospitalComment on above:Performed By: #### CMP, LIPID, TSH, T7 #### [facility] [address] [place] [address] Dr. Grace DurandHematocrit (Bld) [Volume fraction]45.9 %Dolybs16.0-48.0The [facility] HospitalComment on above:Performed By: #### CMP, LIPID, TSH, T7 #### [facility] [address] [place] [address] Dr. Grace DurandHemoglobin (Bld) [Mass/Vol]14.7 g/jATqfbpw33.0-16.0The [facility] HospitalComment on above:Performed By: #### CMP, LIPID, TSH, T7 #### [facility] [address] [place] [address] Dr. Grace Lord #0.01 10e3/ulNormal0.00-0.03The [facility] HospitalComment on above:Performed By: #### CMP, LIPID, TSH, T7 #### [facility] [address] [place] [address] Dr. Grace Lord %0.2 %Normal0.0-0.5The [facility] HospitalComment on above: Performed By: #### CMP, LIPID, TSH, T7 #### [facility] [address] [place] [address] Dr. Grace Bravo #1.5 103/ulNormal1.2-3.8The [facility] HospitalComment on above:Performed By: #### CMP, LIPID, TSH, T7 #### [facility] [address] [place] [address] Dr. Grace Dunbarhocytes/100 WBC (Bld)30.0 %Dzuwlc00.5-60.0The [facility] HospitalCommclaren [facility]land on above:Performed By: #### CMP, LIPID, TSH, T7 #### [facility] [address] [place] [address] Dr. Grace BrennanUAL DIFF REQNONormalThe [facility] HospitalComment on above: Performed By: #### CMP, LIPID, TSH, T7 #### [facility] [address] [place] [address] Dr. Grace Mcmullen (RBC) [Entitic mass]29.1 tsNusguf93.7-34.0The [facility] HospitalComment on above:Performed By: #### CMP, LIPID, TSH, T7 #### [facility] [address] [place] [address] Dr. Grace Manuel (RBC) [Mass/Vol]32.0 g/tMBmewvs63.9-35.2The [facility] HospitalComment on above:Performed By: #### CMP, LIPID, TSH, T7 #### [facility] [address] [place] [address] Dr. Grace Breaux (RBC) [Entitic vol]90.7 gCUhpwsp86.0-99.0The [facility] Hospitalment on above:Performed By: #### CMP, LIPID, TSH, T7 #### [facility] [address] [place] [address] Dr. Grace Almanza #0.5 103/ulNormal0.3-0.8The [facility] Hospitalment on above:Performed By: #### CMP, LIPID, TSH, T7 #### [facility] [address] [place] [address] Dr. Grace Okeefeocytes/100 WBC (Bld)9.9 %Normal1.7-12.0The [facility] Comment on above:Performed By: #### CMP, LIPID, TSH, T7 #### [facility] [address] [place] [address] Dr. Grace Sultana #2.9 103/ulNormal1.4-6.5The [facility] HospitalComment on above:Performed By: #### CMP, LIPID, TSH, T7 #### [facility] [address] [place] [address] Dr. Grace Peraltaophils/100 WBC (Bld)56.4 %Ikxgxo76.0-75.0[facility] on above:Performed By: #### CMP, LIPID, TSH, T7 #### [facility] [address] [place] [address] Dr. Grace Flores mean volume (Bld) [Entitic vol]10.1 fLNormal9.5-13.5The [facility] Hospitalment on above:Performed By: #### CMP, LIPID, TSH, T7 #### [facility] [address] [place] [address] Dr. Grace JacksonT288 103/zjRabqbq865-327Rde [facility] Hospitalment on above: Performed By: #### CMP, LIPID, TSH, T7 #### [facility] [address] [address] [address] Grace DurandRBC5.06 106/ulNormal4.20-5.40The [facility] HospitalCommclaren [place] on above:Performed By: #### CMP, LIPID, TSH, T7 #### [facility] [address] [address] [address] Grace DurandWBC5.1 103/ulNormal4.0-11.0The [facility] HospitalCommclaren [place] on above: Performed By: #### CMP, LIPID, TSH, T7 #### [facility] [address] [address] [address] Grace DurandFRHANANE THYROXINE INDEX T7on 96-20-5270ZTP5.52Rwgtxy9.30-4.50[facility] on above:Performed By: #### CMP, LIPID, TSH, T7 #### [facility] [address] [place] [address] Dr. Grace DurandT3U32.0 %Wmygwp79.0-39.0The [facility] HospitalCommclaren [place] on above: Performed By: #### CMP, LIPID, TSH, T7 #### [facility] [address] [place] [address] Dr. Grace DurandT4 [Mass/Vol]6.60 ug/dLNormal4.80-13.90[facility] Comment on above:Performed By: #### CMP, LIPID, TSH, T7 #### [facility] [address] [place] [address] Dr. Grace DurandGLYCOHEMOGLOBIN A1Con 50-07-1376CZH RECOMMENDATIONSEE BELOWNormal The [facility] HospitalCommclaren [place] on above:Result Comment: ADA RECOMMENDED LIMIT 4.0 - 6.0 ADA THERAPEUTIC TARGET < 7.0 ACTION SUGGESTED > 7.0Performed By: #### CMP, LIPID, TSH, T7 #### [facility] [address] [place] [address] Dr. Grace DurandGlucose [Mass/Vol]108 mg/dLNormalThe [facility] HospitalCommclaren [place] on above:Performed By: #### CMP, LIPID, TSH, T7 #### [facility] [address] [address] [address] Grace DurandHbA1c (Bld) [Mass fraction]5.4 %Normal4.5-6.2The [facility] Hospitalment on above:Performed By: #### CMP, LIPID, TSH, T7 #### [facility] [address] [address] [address] Grace Concepcion 56-27-4490Ltev [Mass/Vol]76.0 ug/zQKyejgk77.0-170.0The [facility] HospitalComment on above:Performed By: #### IRON #### [facility] [address] [place] [address] Dr. Grace GalvinID PROFILEon 29-34-3599ZGSH-HDL RATIO NORMSEE [facility] CenterComment on above:Result Comment: 3.3 - 4.4 LOW RISK 4.4 - 7.1 AVERAGE RISK 7.1 - 11.0 MODERATE RISK >11.0 HIGH RISKPerformed By: #### CMP, LIPID, TSH, T7 #### [facility] [address] [place] [address] Dr. Grace Damonesterol [Mass/Vol]200 mg/dLNormal<=200The [facility] Comment on above:Performed By: #### CMP, LIPID, TSH, T7 #### [facility] [address] [place] [address] Dr. Grace DurandCholesterol in HDL [Mass/Vol]61 mg/dLCritically dtbg05-95Dge [facility]Commclaren [place] on above:Performed By: #### CMP, LIPID, TSH, T7 #### [facility] [address] [address] [address] Grace Damonesterol in LDL [Mass/Vol]109.8 mg/dLSamaritan HospitalCommclaren oakland on above:Performed By: #### CMP, LIPID, TSH, T7 #### [facility] [address] [place] [address] Dr. Grace Damonesterkey.total/Cholesterol in HDL [Mass ratio]3.3 {ratio} NormalThe [facility] HospitalComment on above:Performed By: #### CMP, LIPID, TSH, T7 #### [facility] [address] [address] [address] Grace Maria NORMAL> or = 60 mg/dl - LOW CARDIOVASCULAR RISK <40 mg/dl - HIGH CARDIOVASCULAR RISKSamaritan HospitalComment on above:Performed By: #### CMP, LIPID, TSH, T7 #### [facility] [address] [address] [address] Grace DurandLDL CALC NORMALSEE BELOWSamaritan HospitalComment on above:Result Comment: <100 mg/dl OPTIMAL 100 - 129 mg/dl NEAR OR ABOVE OPTIMAL 130 - 159 mg/dl BORDERLINE HIGH 160 - 189 mg/dl HIGH >190 mg/dl VERY HIGH Performed By: #### CMP, LIPID, TSH, T7 #### [facility] [address] [place] [address] Dr. Grace DurandTriglyceride [Mass/Vol]146 mg/dLNormal<=150The [facility] Comment on above:Performed By: #### CMP, LIPID, TSH, T7 #### [facility] [address] [place] [address] Dr. Grace SinclairLDL CALC29.2 mg/dLNoACMC Healthcare System GlenbeighComment on above: Performed By: #### CMP, LIPID, TSH, T7 #### [facility] [address] [place] [address] Dr. Grace DurandPROF 14(COMP METB)on 44-70-9207Rwabsds [Mass/Vol]3.6 g/dLNormal 3.4-5.0The [facility] HospitalComment on above:Performed By: #### CMP, LIPID, TSH, T7 #### [facility] [address] [place] [address] Dr. Grace DurandAlbumin/Globulin [Mass ratio]0.9 {ratio}NormalThe [facility] on above:Performed By: #### CMP, LIPID, TSH, T7 #### [facility] [address] [place] [address] Dr. Grace Dwyer [Catalytic activity/Vol]90 U/TInpvjo14-124Oty [facility] HospitalComment on above:Performed By: #### CMP, LIPID, TSH, T7 #### [facility] [address] [place] [address] Dr. Grace Ramirez [Catalytic activity/Vol]20 U/KGgysgq10-32Hqv [facility] HospitalComment on above:Performed By: #### CMP, LIPID, TSH, T7 #### [facility] [address] [place] [address] Dr. Grace Paiz gap [Moles/Vol]11.0 mmol/LNormalBlanchard Valley [facility] Comment on above:Performed By: #### CMP, LIPID, TSH, T7 #### [facility] [address] [place] [address] Dr. Grace Bonilla [Catalytic activity/Vol]18 U/NWgvccp92-94Yzn [facility] HospitalComment on above:Performed By: #### CMP, LIPID, TSH, T7 #### [facility] [address] [place] [address] Dr. Grace DurandBilirubin [Mass/Vol]0.5 mg/dLNormal0.2-1.0[facility] Comment on above:Performed By: #### CMP, LIPID, TSH, T7 #### [facility] [address] [place] [address] Dr. Grace DurandCalcium [Mass/Vol]9.3 mg/dLNormal8.5-10.1[facility] Comment on above:Performed By: #### CMP, LIPID, TSH, T7 #### [facility] [address] [place] [address] Dr. Grace DurandChloride [Moles/Vol]107 mmol/ROubywt52-879Lvx [facility] Comment on above:Performed By: #### CMP, LIPID, TSH, T7 #### [facility] [address] [place] [address] Dr. Grace DurandCO2 [Moles/Vol]26.9 mmol/UThrjnc34.0-32.0The [facility] Comment on above:Performed By: #### CMP, LIPID, TSH, T7 #### [facility] [address] [address] [address] Grace DurandCreatinine [Mass/Vol]0.96 mg/dLNormal0.55-1.02The [facility] Hospitalment on above:Performed By: #### CMP, LIPID, TSH, T7 #### [facility] [address] [place] [address] Dr. Grace CarranzaGFR-AF SUDANESE>60Normal>=60The [facility] HospitalComment on above:Performed By: #### CMP, LIPID, TSH, T7 #### [facility] [address] [place] [address] Dr. Grace CarranzaGFR-NON AF SRTGQARR08 mL/min/1.59g2Tvzcojsjtj low>=60The [facility] HospitalComment on above:Performed By: #### CMP, LIPID, TSH, T7 #### [facility] [address] [place] [address] Dr. Grace DurandGlobulin (S) [Mass/Vol]3.9 g/dLNormalThe [facility] HospitalComment on above:Performed By: #### CMP, LIPID, TSH, T7 #### [facility] [address] [place] [address] Dr. Grace DurandGlucose [Mass/Vol]95 mg/qHKbptob29-394ZtoBlanchard Valley Health System Comment on above:Performed By: #### CMP, LIPID, TSH, T7 #### [facility] [address] [place] [address] Dr. Grace DurandPotassium [Moles/Vol]4.9 mmol/LNormal3.5-5.1[facility] Comment on above:Performed By: #### CMP, LIPID, TSH, T7 #### [facility] [address] [place] [address] Dr. Grace DurandProtein [Mass/Vol]7.5 g/dLNormal6.4-8.2[facility] Comment on above:Performed By: #### CMP, LIPID, TSH, T7 #### [facility] [address] [place] [address] Dr. rGace Cifuentesum [Moles/Vol]140 mmol/DBruqyn111-993LpsBlanchard Valley Health System Comment on above:Performed By: #### CMP, LIPID, TSH, T7 #### [facility] [address] [address] [address] Grace Poe nitrogen [Mass/Vol]15.0 mg/dLNormal7.0-18.0The [facility] HospitalComment on above:Performed By: #### CMP, LIPID, TSH, T7 #### [facility] [address] [address] [address] Grace Poe nitrogen/Creatinine [Mass ratio]15.6 mg/mgSamaritan HospitalComment on above:Performed By: #### CMP, LIPID, TSH, T7 #### [facility] [address] [place] [address] Dr. Grace Elder 33-09-5884TRV1.265 uIU/mLCritically low0.358-3.740[facility] SystemComment on above:Performed By: #### CMP, LIPID, TSH, T7 #### [facility] [address] [place] [address] Dr. Grace DURANT BELOWSamaritan HospitalComment on above: Result Comment: <0.34 UIU/ml HYPERTHYROID 0.34-5.60 UIU/ml EUTHYROID >5.60 UIU/ml HYPOTHYROIDPerformed By: #### CMP, LIPID, TSH, T7 #### [facility] [address] [place] [address] Dr. Grace DurandPhysician Referralon 71-44-3132Pychdwplp Referral [id number]#1.00CD:127NormalOhiohealth Grady Memorial HospitalFormson [id number]#1.00CD:127 [facility] CenterPhysician Referralon 77-06-4037Uynjjpfqm [id number]#1.00CD:127NoMercy Health Tiffin HospitalAmbulatory Clinical Summaryon 45-10-4776Dmwzlrzdvg Clinical Summary{59-d8-64-la-h4-5x-32-44-72-78-0c-96-a5-ff-1c-31}CD:[id number] Health Tiffin HospitalPatient Educationon 49-74-6148Hdkxneh EducationFamily Medicine Urinary Frequency The number of [...] individual to change your urinary (more contentnot included)...NormalOhiohealth Grady Memorial HospitalUrology Office/Clinic Noteon 26-00-3633Yvngcdw Office/Clinic NoteChief Complaint Pt is a new [...] History of Present Illness Reviewed UA and JEWELRY MANAGER paper works. There have been no [...] 1. Female bladder prolapse (N81.10: Cystocele, unspecified) JEWELRY MANAGER is referred by Adela Baker CNP. Pt. had a bladder prolapse reair with mesh in by dr flores at [facility]. Her bladder has dropped again [...] When Contact Information LENNY HARDY, Juan Solano [address] [place] [address] [place] [address]- [phone] Additional Instructions: Patient Education Urinary Frequency I, [...] Vitamins oral tablet, 1 tab(s), Oral, Daily Coolspring 325 mg-5 mg oral tablet, 1 tab(s), Oral, q4hr, PRN, 1 refills, Not taking sertraline 100 mg Tab, 100 mg= 1 tab(s), Oral, Daily (more content not included)...[facility] Medical CenterComment on above:Result Comment: Electronically Signed By: Juan GALVEZ MD\.br\Date and Time Signed: 02/28/20 13:30 EDT\.br\Electronically Co-Signed By: Gabrielle Moore MA\.br\Date and Time Co-Signed: 02/27/2013:25 ROXANA Martinez 10-01-2017 [facility] HospitalDepartment of [address] [place] [address] Patien t Name: GOGO CAREY : 1940Sex: FAge: Race: WhiteMRN: [id number]. Location: 84Patient Status: DVisit #: [id number] Date: 10/01/2017 4:30:00 PMCompleted Date: 10/01/2017 04:36 PMRequesting Provider: GONZALEZ SUTTON Attending Provider: GONZALEZ SUTTON Report Copy To: UNKNOWN, PHYSICIAN Signs & Symptoms: S46.011A Strain of musc/tend the rotator cuff of right shoulder, ndmiO71Plzcipm: AthenaComments: , , , Ordering Provider - GONZALEZ SUTTON MD , Exam: SHOULDER RIGHTAccession #: [id number] SHOULDER RIGHT 10/01/2017 4:36 PM EDT SIGNS AND SYMPTOMS: S46.011A Strain of musc/tend the rotator cuff of right shoulder, init I10 TECHNOLOGIST COMMENTS: History of right shoulder bsiprvg5801/21/2017. Ortho follow up. QUESTION FOR THE RADIOLOGIST: [...] findings. Electronically signed by:Ron Velez. Transcribed by: [email or web address], User Resident: PEYMAN JEAN BAPTISTEElectronically Signed by: RON VELEZ @ 10/02/2017 09:36 AMI personally read this/these film(s) with this [facility] Health MiamisburgComment on above:Order Comment: , , , Ordering Provider - GONZALEZ SUTTON MD , Discharge Summaryon [id number] SummaryMR#: [id number] [facility]UniversHol[facility] Pt[facility] Name: Gogo Carey Admitted: 01/21/2017Discharged: 01/23/2017 [...] 01/28/2017/03:22 P/Gauri Sahu M.D.Date Trans: 01/28/2017 04:03 P/mmoDN_JN:[id number] Health HamiltonCBC W/DIFFon 87-45-7498Bnhpbmdhb Auto #/vol (Bld)0.0 %Normal0.0-2.0The [facility] HospitalComment on above:Order Comment: No: Do not add to previous drawPerformed By: #### [id number] ####[facility] [facility] [place] [address], USAEosinophils/100 leukocytes0.0 %Normal0.0-5.0 The [facility] HospitalComment on above:Order Comment: No: Do not add to previous drawPerformed By: #### [id number] ####[facility] [facility] [place] [address], USAErythrocyte distribution width Auto Ratio (RBC)13.8 %Ggqalf29.5-16.9The [facility] HospitalComment on above:Order Comment: No: Do not add to previous drawPerformed By: #### 06742 ####[facility] [place] [address], USAErythrocytes (RBC)3.62 mill/ow5Yiqibc0.50-5.50The [facility] HospitalComment on above:Order Comment: No: Do not add to previous drawPerformed By: #### 03921 ####[facility] [place] [address], USAHematocrit (HCT)32.1 %Low36.0-48.0The [facility] HospitalComment on above:Order Comment: No: Do not add to previous drawPerformed By: #### [id number] ####[facility] [facility] [place] [address], [facility] CENTERHemoglobin mass conc (Bld)10.4 g/dLLow12.0-15.0The [facility] HospitalComment on above:Order Comment: No: Do not add to previous drawPerformed By: #### 02034 ####[facility] [place] [address], [facility] CENTERLymphocytes/100 leukocytes6.4 %Low20.0-40.0The [facility] HospitalComment on above:Order Comment: No: Do not add to previous drawPerformed By: #### 93729 ####[facility] [place] [address].[place] [address], [facility] MCH28.7 dsCyropt76.0-32.0The [facility] HospitalComment on above:Order Comment: No: Do not add to previous drawPerformed By: #### 91672 ####[facility] [facility] [place] [address], [facility] MCHC mass conc (RBC)32.4 g/nQVxgwmf96.0-36.0The [facility] HospitalComment on above:Order Comment: No: Do not add to previous drawPerformed By: #### 06655 ####[facility] [facility] [place] [address], HHEPFB76.6 bUZmnycj42.0-100.0The [facility] Comment on above:Order Comment: No: Do not add to previous drawPerformed By: #### 02875 ####[facility] [facility] [place] [address], USAMETHODNormalThe [facility] HospitalComment on above: Order Comment: No: Do not add to previous drawResult Comment: Automated differential performedNormal RBC MorphologyPerformed By: #### 10870 ####[facility] [place] [address], [facility] MONOS9.0 %High2-8The [facility] HospitalComment on above:Order Comment: No: Do not add to previous drawPerformed By: #### 23944 ####[facility] [facility] [place] [address], [facility] CENTERNeutrophils/100 khmhyujhun32.6 %Yypq88-43Jns [facility] HospitalComment on above:Order Comment: No: Do not add to previous drawPerformed By: #### 75060 ####[facility] [facility] [place] [address], [facility] PLAT UYH907 Thou/lc4Litllu727-017Tdr [facility] HospitalComment on above:Order Comment: No: Do not add to previous drawPerformed By: #### 98636 ####[facility] [facility] [place] [address], [facility] WBC (Leukocytes)8.0 Thou/fd9Kwcvfs3.0-10.0The [facility] HospitalComment on above:Order Comment: No: Do not add to previous drawPerformed By: #### 65868 ####[facility] [facility] [place] [address], [facility] CENTEROperative Reporton [id number] ReportMR#: [id number] IUniversity [facility] Name: Gogo Carey Room #: [id number] Discharge Date: Birthdate: 1940 OPERATIVE REPORTDATE OF [...] the face of theglenoid and the gu navneet pin was placed into the glenoid with a slightinferior tilt. The central docking pilot hole was drilled and the glenoid wasreamed down to the subchondral bone. The wound was irrigated. A biwkqloory-hlfeavonuz-lydzgdgar was impacted into the glenoid and was [...] Bereket/Gonzalez Sutton M.D.Date Trans: 01/22/2017 05:59 P/anna marieoDN_JN:[id number] MetroHealth SystemARTERIAL BLOOD GAS W/COOXon 37-95-2596EBRY EXCESS0 mmol/QOpiosg-0-2Wpw [facility] HospitalComment on above:Performed By: #### 24795, 89312, 81663, 46370 ####[facility] [place] [address], USABicarbonate (HCO3)25 mmol/KLyuijx18-53Tpf [facility] Comment on above:Performed By: #### 05317, 08818, 27034, 39244 ####[facility] [place] [address], SSHIK557 mmHgNormal 35-45The [facility] HospitalComment on above:Performed By: #### 66719, 22645, 52518, 04626 ####[facility] [place] [address], USACOHB2 %High0-1The [facility] Comment on above:Performed By: #### 57011, 29849, 31030, 89157 ####[facility] [place] [address], USAMETHB1.0 %Normal 0.0-1.5The [facility] HospitalComment on above:Performed By: #### 43495, 44505, 41715, 13490 ####[facility] [place] [address], USAO2 mobmbcajqp78.4 %Hqjram27.0-97.0The [facility] HospitalComment on above:Performed By: #### 10892, 89378, 58413, 45484 ####[facility] [place] [address], USAOxygen in arterial blood99 mm[Hg]Cmalkq03-166Cca [facility] HospitalComment on above:Performed By: #### 83839, 54685, 89981, 95652 ####[address] [place] [address], [facility] CENTERpH of blood7.43 [pH]Normal7.35-7.45The [facility] HospitalComment on above:Performed By: #### 02823, 32587, 36658, 67162 ####[address] [place] [address], NKHUBG91.0 g/dLLow12.0-15.0The [facility] HospitalComment on above:Performed By: #### 27254, 36347, 09750, 12947 ####[address] [place] [address], [facility] MEDICAL CENTERCALCIUM IONIZED CBGLon 33-14-9814REHIDVI CALCIUM1.22 mmol/LNormal1.13-1.32The [facility] HospitalComment on above:Performed By: #### 07609, 57989, 97635, 51984 ####[address] [place] [address], [facility] POC GLUCOSE LABon 70-72-2309Pnluoqc mass conc92 mg/dQQngurl63-425Zxa [facility] HospitalComment on above:Performed By: #### 16540 ####[address] [place] [address], [facility] MEDICAL CENTERPORTABLE SHOULDER RIGHT 2 VWSon 15-48-7636GZCDYCZI SHOULDER RIGHT 2 SUniversity Green Cross HospitalDepartment of Tqwwfytzs[address] [place] [id number] Patien t Name: GOGO CAREY : 1940Sex: FAge: Race: WhiteMRN: [id number]. Location: OUTPPatient Status: IVisit #: [id number] Date: 01/21/2017 7:40:00 PMCompleted Date: 01/21/2017 08:41 PMRequesting Provider: GAURI SAHU Attending Provider: GONZALEZ SUTTON Report Copy To: Signs & Symptoms: Post OPHistory: Patient history not availableComments: Hardware EvaluationExam: PORTABLE SHOULDER RIGHT 2 VWSAccession #: [id number] ========PORTABLE SHOULDER RIGHT 2 VWS 01/21/2017 8:41 [...] alignment Electronically signed by:Freddy Mcrae. Transcribed by: [email or web address], User Resident: Electronically Signed by: FREDDY MCRAE @ 01/22/2017 11:45 AMNormalThe [facility] Clinic Medina HospitalComment on above:Order Comment: Hardware EvaluationPOTASSIUM WHOLE BLOOD CBGLon 64-98-8067Mbuaevotc molar conc3.5 mmol/L Normal3.4-5.2The [facility] Medina HospitalComment on above:Performed By: #### 49209, 81854, 29741, 46288 ####[facility] [place] [address], USASODIUM WHOLE BLOOD CBGLon 70-05-7961Sodzgj 137.0 mmol/LOmswno010.0-146.0The [facility] Med[facility] HospitalComment on above:Performed By: #### 55989, 14389, 95572, 38594 ####[facility] [place] [address], [facility]HE[facility] AND [facility] [phone] AND [facility] HospitalDepartment of Jwwexdmxt0560 [facility] CenterARUN Reveles [id number] Patien t Name: GOGO CAREY : 1940Sex: FAge: Race: WhiteMRN: [id number]. Location: 84Patient Status: OVisit #: [id number] Date: 01/15/2017 3:05:00 PMCompleted Date: 01/15/2017 03:06 PMRequestingProvider: GONZALEZ SUTTON Attending Provider: GONZALEZ SUTTON Report Copy To: Signs &Symptoms: S46.011A Strain of musc/tend the rotator cuff of right shoulder, init L06Mnlvsxj: AthenaComments: , , Views (X-RAY, CHEST): PA , , , Ordering Provider - GONZALEZ SUTTON MD , Rendering Provider - GONZALEZ SUTTON MD , Exam: CHEST AND LATERALAccession #: [id number]====== CHEST AND LATERAL 01/15/2017 3:08PM EDT SIGNS [...] process. Electronically signed by:Evaristo Buchanan. Transcribed by: [email or web address], User Resident: Electronically Signed by: EVARISTO BUCHANAN @ 01/15/2017 03:50 [facility] CenterComment on above:Order Comment: , , Views (X- RAY, CHEST): PA , , , Ordering Provider Kemar SUTTON MD , Rendering Provider Kemar SUTTON MD , Vital Signs Date TimeVital SignValuePerforming YtjvkifcaCzqhdwtk98-26-4770 14:48-0400Body pgjeyt533.3 cmTimothy Rib Lake DO Work Phone: [facility] Oaglxjnqpf44-60-4718 14:48-0400Body mass index (BMI) [Ratio]42.85 kg/o3Bexraxa Rib Lake DO Work Phone: [facility] Aynqenhwjz25-52-9633 14:48-0400Body temperature 98.6 [degF]Darina Rib Lake DO Work Phone: [facility] Fxsgyndoys07-12-1657 14:48-0400Body svkulo63.99 kgTimothy Rib Lake DO Work Phone: [facility] Yfjcgibvnl01-72-2045 14:48-0400Diastolic blood oqfdolfn58 mm[Hg]Darian Rib Lake DO Work Phone: [facility] Hptttaqzwn57-98-7613 14:48-0400Heart rate68 /min Darian Rib Lake DO Work Phone: [facility] Sfzoodsyrt23-87-1987 14:48-8722FsJ3% (BldA) [Mass fraction]96 %Darian Blankenship DO Work Phone: noGeneral [facility] HospitalQtysfrvdcs93-89-8032 14:48-0400Systolic blood sseqzmzk436 mm[Hg]Darian Blankenship DO Work Phone: noGeneral [facility] HospitalMncxnqplbn35-20-0918 09:30-0500Body mass index (BMI) [Ratio]36.99 kg/g2Oayxlj Mobile JEWELRY MANAGER Work Phone: [place] [address]Dydcroamyy19-51-0758 09:30-0500Body temperature 98.4 [degF]Moe Noyola JEWELRY MANAGER Work Phone: 1(911)[facility] [address]Pqunoihbaw53-62-8355 09:30-0500Body hrotkm73.29 kgRachebryan Jonasok JEWELRY MANAGER Work Phone: [place] [address]Jlpzixcegu78-15-2981 09:30-0500Heart rate71 /min Moe Noyola JEWELRY MANAGER Work Phone: 1(282)[facility]-[address] [address]Wecbrwzwer46-52-6810 09:30-2271NrU6% (BldA) [Mass fraction]96 %Moe Noyola JEWELRY MANAGER Work Phone: 1(428)[facility]-[address] [address]Aduxozkzgp05-75-6164 19:54-0500Body mass index (BMI) [Ratio]36.99 kg/v2Itbqmn Mobile JEWELRY MANAGER Work Phone: [place] [address]Xqsmjksruk82-28-8656 19:54-0500Body temperature 98.71 [degF]Meo Noyola JEWELRY MANAGER Work Phone: [place] [address]Jnsptacpol07-45-2839 19:54-0500Body .29 kgRachebryan Jonasok JEWELRY MANAGER Work Phone: 1(148)[facility]-[address] [address]Mxhvabklwb32-63-7505 19:54-0500Diastolic blood ucrlmcxi35 mm[Hg]Moe Noyola JEWELRY MANAGER Work Phone: [place] [address]Olukyszmwi19-98-6732 19:54-0500Heart rate84 /min Moe Noyola JEWELRY MANAGER Work Phone: 1(419)[address] [place] [address]-07-2024 19:54-5613BdT1% (BldA) [Mass fraction]97 %Moe Noyola JEWELRY MANAGER Work Phone: [facility] HospitalSlyzpsiyhc69-08-5889 19:54-0500Systolic blood jvijekzg349 mm[Hg]Moe Noyola JEWELRY MANAGER Work Phone: [facility] HospitalFnjgcpycxm77-80-1633 21:04-0500Body qqgoguapacr35 [degF]JEWELRY MANAGER-C Adela Olivia Work Phone: 1(522)956-[address] [place], [place] 6863402-19-2024 21:04-0500 Diastolic blood yuvqmsei90 mm[Hg]JEWELRY MANAGER-C Adela Olivia Work Phone: 1(795)[address]02-19-2024 21:04-0500 Heart rate64 /minNP-C Adela Olivia Work Phone: 1(587)[address]02-19-2024 21:04-0500 Respiratory rate20 /minNP-C Adela Olivia Work Phone: 1(021)[address]02-19-2024 21:04-0500 SaO2% (BldA) [Mass fraction]97 %JEWELRY MANAGER-C Adela Olivia Work Phone: 1(741)[address]02-19-2024 21:04-0500 Systolic blood scqrkuil954 mm[Hg]JEWELRY MANAGER-C Adela Olivia Work Phone: 1(868)498-[address] [place], [place] 6863402-19-2024 14:21-0500 Body lakxyf117.4 cmNP-C Adela Olivia Work Phone: 1(337)[address]02-19-2024 14:21-0500 Body ixwrlk94.6 kgNP-C Adela Olivia Work Phone: 1(115)[address]12-27-2023 18:25-0500 Diastolic blood mpsubsny89 mm[Hg]JEWELRY MANAGER-C Adela Olivia Work Phone: 1(257)[address]12-27-2023 18:25-0500 Heart rate98 /minNP-C Adela Olivia Work Phone: 1(143)626-[address] [place], [place] 6863412-27-2023 18:25-0500 Respiratory rate18 /minNP-C Adela Olivia Work Phone: 1(355)[address] [place], [place] 5086212-27-2023 18:25-0500 SaO2% (BldA) [Mass fraction]96 %JEWELRY MANAGER-C Adela Olivia Work Phone: 1(090)[address] [place], [place] 5086212-27-2023 18:25-0500 Systolic blood pohzxqsp346 mm[Hg]JEWELRY MANAGER-C Adela Olivia Work Phone: 1419)[address] [place], [place] 5086212-27-2023 15:54-0500 Body nfortwqulhf73.5 [degF]JEWELRY MANAGER-C Adela Olivia Work Phone: 1(373)[address] [place], [place] 5086212-27-2023 15:51-0500 Body trciwc707.94 cmNP-C Adela Olivia Work Phone: 1(415)[address] [place], [place] 5086212-27-2023 15:51-0500 Body gfvohs78.11 kgNP-C Adela Olivia Work Phone: 1(946)[address] [place], [place] 5086210-22-2023 19:24-0400 Diastolic blood yufxofmt14 mm[Hg]JEWELRY MANAGER-C Adela Olivia Work Phone: 1(391)[address] [place], [place] 5086210-22-2023 19:24-0400 Heart rate92 /minNP-C Adela Olivia Work Phone: 1(434)[address] [place], [place] 5086210-22-2023 19:24-0400 Respiratory rate20 /minNP-C Adela Olivia Work Phone: 1419)[address] [place], [place] 5086210-22-2023 19:24-0400 SaO2% (BldA) [Mass fraction]98 %JEWELRY MANAGER-C Adela Olivia Work Phone: 1(346)[address] [place], [place] 5086210-22-2023 19:24-0400 Systolic blood ertdoefj834 mm[Hg]JEWELRY MANAGER-C Adela Olivia Work Phone: 1(478)[address] [place], [place] 5086210-22-2023 15:36-0400 Body .4 cmNP-C Adela Olivia Work Phone: 1(461)[address]10-22-2023 15:36-0400 Body rawjle10.01 kgNP-C Adela Olivia Work Phone: 1(658)[address] [place], [place] 5086210-22-2023 15:35-0400 Body dfkiazjawxo79.9 [degF]JEWELRY MANAGER-C Adela Olivia Work Phone: 1(628)[address] [place], [place] 5086208-07-2023 23:29-0400 Diastolic blood sgwqoqad67 mm[Hg]JEWELRY MANAGER-C Adela Olivia Work Phone: 1(127)[address] [place], [place] 5086208-07-2023 23:29-0400 Heart rate94 /minNP-C Adela Olivia Work Phone: 1(357)[address] [place], [place] 5086208-07-2023 23:29-0400 Respiratory rate19 /minNP-C Adela Olivia Work Phone: 1(270)[address] [place], [place] 5086208-07-2023 23:29-0400 SaO2% (BldA) [Mass fraction]97 %JEWELRY MANAGER-C Adela Olivia Work Phone: 1(910)[address] [place], [place] 5086208-07-2023 23:29-0400 Systolic blood mtixcayl877 mm[Hg]JEWELRY MANAGER-C Adela Olivia Work Phone: 1(469)[address] [place], [place] 5086208-07-2023 21:06-0400 Body ybcawe259.4 cmNP-C Adela Olivia Work Phone: 1(341)[address] [place], [place] 5086208-07-2023 21:06-0400 Body yacxsj07.6 kgNP-C Adela Olivia Work Phone: 1(707)[address] [place], [place] 5086208-07-2023 15:24-0400 Body .7 [degF]JEWELRY MANAGER-C Adela Olivia Work Phone: 1(891)[address] [place], [place] 5086206-02-2023 17:37-0400 Body vsicxk077.94 cmNP-C Adela Olivia Work Phone: 1(759)[address]06-02-2023 17:37-0400 Body xonofunvjut48.4 [degF]JEWELRY MANAGER-C Adela Olivia Work Phone: 1(545)483-[address] [place], [place] 6863406-02-2023 17:37-0400 Body jzgnit00.7 kgNP-C Adela Olivia Work Phone: 1(400)[address]06-02-2023 17:37-0400 Diastolic blood uoyrahgd60 mm[Hg]JEWELRY MANAGER-C Adela Olivia Work Phone: 1(758)483-[address] [place], [place] 6863406-02-2023 17:37-0400 Heart rate90 /minNP-C Adela Olivia Work Phone: 1(343)[address]06-02-2023 17:37-0400 Respiratory rate20 /minNP-C Adela Olivia Work Phone: 1(553)[address] [place], [place] 5086206-02-2023 17:37-0400 SaO2% (BldA) [Mass fraction]96 %JEWELRY MANAGER-C Adela Olivia Work Phone: 1(572)483-[address] [place], [place] 6863406-02-2023 17:37-0400 Systolic blood mm[Hg]JEWELRY MANAGER-C Adela Olivia Work Phone: 1(524)[facility]-[address] [place], [place] 6863404-09-2023 22:00-0400 Diastolic blood vmprmpca93 mm[Hg]JEWELRY MANAGER-C Adela Olivia Work Phone: 1(204)[address] [place], [place] 5086204-09-2023 22:00-0400 Heart rate68 /minNP-C Adela Olivia Work Phone: 1(667)483-[address] [place], [place] 6863404-09-2023 22:00-0400 Respiratory rate18 /minNP-C Adela Olivia Work Phone: 1(337)483-[address] [place], [place] 6863404-09-2023 22:00-0400 SaO2% (BldA) [Mass fraction]100 %JEWELRY MANAGER-C Adela Olivia Work Phone: 1(347)[address]04-09-2023 22:00-0400 Systolic blood tdgxonme059 mm[Hg]JEWELRY MANAGER-C Adela Olivia Work Phone: 1(545)[address]04-09-2023 21:03-0400 Body xdnywy788.4 cmNP-C Adela Baker Work Phone: [facility]04-09-2023 21:03-0400 Body qrytpgctrlo07.6 [degF]JEWELRY MANAGER-Vandana Baker Work Phone: [facility]04-09-2023 21:03-0400 Body dqqihg56.18 kgNP-C Adela Baker Work Phone: [facility] Encounters Encounter DateEncounter TypeCare ProviderFacilityStart: 03-11-2025 End: 92-58-1182Tbmuizecw encounterTimothy L Rib Lake DO Work Phone: [facility] 230Comment on above: Appointment RequestStart: 03-10-2025 End: 77-24-0561Zwieqywiq encounterTimothy L Rib Lake DO Work Phone: [facility] 230Comment on above: Record RequestStart: 03-03-2025 End: 62-37-1923Zhmokm outpatient visit 25 minutesTimothy L Rib Lake DO Work Phone: [facility] 230Comment on above: Disorder of thyroid gland (Primary Dx); Mixed incontinence; Mixed anxiety and depressive disorder; Mixed hyperlipidemia; Primary osteoarthritis, unspecified siteStart: 03-03-2025 End: 75-43-0751isoenbpyhtSORGVCF L CUTLERNot AvailableStart: 03-03-2025 End: 12-69-1586Qidjev flowsheetTimothy L Rib Lake DO Work Phone: [facility] 230Start: 03-03-2025 End: 94-12-9996Wmcvhd flowsheetTimothy L Rib Lake DO Work Phone: [facility] 230Start: 02-28-2025 [facility] DEPARTMENTStart: 11-23-2024 End: 85-64-3154wnvrxnnqtoLly [facility] Work Phone: Start: 11-23-2024 End: 46-26-0933Nbepdrie ReferredGay Castrejon JEWELRY MANAGER-C-[facility] Start: 11-23-2024 End: 03-30-2240Gpovkapz Result EncounterGay Lucía GONZALEZ Work Phone: [facility]oms External Department UnsolicitedStart: 11-23-2024 End: 14-51-0439Fjfafugp Result EncounterGay Lucía GONZALEZ Work Phone: [facility] External Department UnsolicitedStart: 03-19-2024 End: 38-89-7020noacqsrdrbWTHGYE L HOLBROOKNot AvailableStart: 03-19-2024 End: 44-27-3637Wzbbjn outpatient visit 25 minutesRachel L Mobile JEWELRY MANAGER Work Phone: [facility]oms SWS UCComment on above:Right hand pain (Primary Dx); Cat scratch of hand, right, initial encounter; Cellulitis of right handStart: 03-18-2024 End: 02-54-5413qowptkydrfKUZBZG L HOLBROOKNot AvailableStart: 03-18-2024 End: 61-31-6068Zjaazc outpatient visit 25 minutesRachel L Mobile JEWELRY MANAGER Work Phone: noms SWS UCComment on above:Cat scratch of hand, right, initial encounter (Primary Dx); Cellulitis of finger of right handStart: 11-09-2023 End: 67-54-5247srdddkukmzLM-C Adela Baker Work Phone: [facility] Work Phone: Start: 11-09-2023 End: 54-45-9345Jgfeivac ReferredNP-C Adela Baker Work Phone: [facility]-Lab [facility] [place] Work Phone: Start: 06-30-2023 End: 67-06-2527Iplimelck department patient visitNP-C Adela Baker Work Phone: [facility]-Emergency Room Work Phone: Start: 05-28-2023 End: 62-87-9992ciltenjgykRL-C Adela Rizvi Olivia Work Phone: [facility] Work Phone: Start: 05-28-2023 End: 45-92-7935Tfrwsmx encounter procedureNP-C Adela Nievesmer Work Phone: [facility]-Lab [facility] [place] Work Phone: Start: 05-07-2023 End: 35-24-5154Fldbtnyiz department patient visitNP-C Adela Nievesmer Work Phone: [facility]-Emergency Room Work Phone: Start: 03-02-2023 End: 05-74-6353Saxwzgdag department patient visitNP-C Adela Olivia Work Phone: [facility]-Emergency Room Work Phone: Start: 12-16-2022 End: 76-50-7476Guhdecsih department patient visitNP-C Adela Nievesmer Work Phone: [facility]-Emergency Room Work Phone: Start: 10-11-2022 End: 62-13-8116Zagixeyuh department patient visitNP-C Adela Nievesmer Work Phone: [facility]-Emergency Room Work Phone: Start: 09-16-2022 End: 68-59-8199gblsfzelivSY ALISA MCDERMOTT .Facility:Y7Lruso: 08-18-2022 End: 19-21-1489Vqfwruxug department patient visitNP-C Adela Nievesmer Work Phone: [facility]-Emergency Room Work Phone: Start: 08-13-2022 End: 28-71-7959wwdhdgcaptOU-C Adela Beckmanradha Baker Work Phone: [facility] Work Phone: Start: 08-13-2022 End: 72-92-4485Rppxbqb encounter procedureNP-C Adela Baker Work Phone: [facility]-Sleep Lab Work Phone: Start: 07-20-2022 End: 49-52-2861mqxpkdlupbGUMSPS CRAMERFacility:L0Vsrka: 10-01-2021 End: 62-93-1089mkvlwmfubfGXUGDH CRAMERFacility:F3Lxxah: 10-01-2017 End: 95-74-0449BrhnivrgwgNKCMVELS K RAMINENIFacility:UTMCStart: 01-21-2017 End: 95-30-4266Ewslrtrxoh and management of inpatientSJOVANI Antonio COTY Facility:[facility]ENTERtart: 01-15-2017 End: 56-58-9642SltnqoghvuNOMFYQYK K RAMINENIFacility:UTMCStart: 12-11-2016 End: 03-02-8430JenxauwlmbZTXXHBW PHYSICIANFacility:[facility] HOSPITALtart: 12-11-2016 End: 38-30-9657RrrssclrriRSFAOUW PHYSICIANFacility:[facility] Procedures DateProcedureProcedure DetailPerforming ClinicianStart: 42-55-0983Sdxusvs bacterial quanttative colony count urineAmy Lucía LISA Work Phone: Start: 22-81-2448Uxpqd hand minimum 3 viewsRachel L Elisabeth JEWELRY MANAGER Work Phone: Start: 23-40-0823Aiggcnbm tomography of abdomen and pelvis with contrastNP-C Adela Baker Work Phone: Start: 76-65-5712Yxphztuaej radiography of abdomenNP-C Adela Baker Work Phone: Start: 86-53-8348Iypyplcxbr radiography of abdomenNP-C Adela Baker Work Phone: Start: 40-80-6282QZGJATT OF ARTERIAL SATURATION, PERIPHERAL, PERC APPROACHSATHEKENNEY Alvarez RAMINENIStart: 36-54-8772SXZJICO OF R SHOULDER JT WITH REV BL \T\ SOCKT, OPEN APPROACHSATHEESH K RAMINENI Plan of Treatment DateCare ActivityDetailAuthorStart: 03-17-2025 End: 34-57-5669Adjbeoi encounter hnmrafkas39/06/2025 3:00 PM EST [facility] [address] [place] [address] Rib [place], Darian L, DO [address] [place] [address] [facility] 230 Start: 03-03-2025 End: 12-27-0628Szozwic encounter wudagcnyz63/23/2025 3:00 PM EDT Office Visit TORIN Augustinusky [facility] [address] [place] [address] Rib [place], Darian L, DO [address] [place] [address] ArrivedNOFormerly [facility] 230Comment on above:ArrivedStart: 11-61-5879OEQFK-19 Vaccine ( season)COVID-19 Vaccine ( season)[facility] HealthcareStart: 01-10-2025 Influenza vaccinationInfluenza Vaccine (#1)[facility] HealthcareStart: 55-86-6162Adpqx [facility] Hospitaltart: 43-52-2199Mtwankzq identified in Urine by [facility]tart: 29-58-8479Yifbsmpak vaccinationInfluenza Vaccine (#1)[facility] HealthcareStart: 25-33-1804Mcvmgqua identified in Urine by [facility] Hospitaltart: 08-31-2020 DTaP/Tdap/Td Vaccines (2 - Tdap)DTaP/Tdap/Td Vaccines (2 - Tdap)[facility] Healthcare Start: 12-77-5997Zfcnsqveoejo Vaccine: 65+ Years (1 of 1 - PCV)Pneumococcal Vaccine: 65+ Years (1 of 1 - PCV)[facility] HealthcareStart: 52-15-4231Ckejtycmnxqf Vaccine: 65+ Years (1 of 1 - PCV)Pneumococcal Vaccine: 65+ Years (1 of 1 - PCV) [facility] HealthcareStart: 07-18-1943Medicare Annual Wellness (AWV)Medicare Annual Wellness (AWV)[facility] HealthcarePatient EducationPaulding County Hospital Medical [facility]tr Work Phone: Patient referralMount Carmel Health [facility] Work Phone: Immunizations Immunization DateImmunizationNotesCare ZfxuvdjmBqrmwimr47-43-2469uwwtyai and diphtheria toxoids, adsorbed, preservative free, for adult use (5 Lf of tetanus toxoid and 2 Lf of diphtheria toxoid)Darian Blankenship DO Work Phone: [facility] Payers DatePayer CategoryPayerPolicy [id number]-zpf [id number] (Managed Care)[employer] [id number] 2022MedicaidMEDICAID [place] [id number] [id number] 2.16.840.1.514339.3.57[id number] 2..840.1.010891.3.579.2.88670-03-2080Dnxvcrt0291009 2..840.1.916394.3.57[id number] 2.16.840.1.829022.3.57[id number] 2..840.1.352920.3.579.2.2[id number] 2..840.1.351451.3.579.[id number] 2.16.840.1.433307.3.57[id number] 2.840.1.519[id number]/HFA/FAP [id number] 2.16840.1.868100.3.579.2.531 Social History DateTypeDetailFacilityStart: 95-56-6231Dsnptub smoking status NHISEx-smoker (finding)[facility] Hospitaltart: 50-71-2593Mev Assigned At FemaleBrown Memorial Hospitaltart: 08-18-2022 End: 43-15-4860Txaiumw smoking status NHISNever smoked tobacco (finding) [facility] HospitalTobacco smoking status NHISTobacco smoking consumption unknownUTAH STATE HOSPITAL HealthcareStart: 23-09-6401Hdc assigned at birthNot on fileUTAH STATE HOSPITAL HealthcareStart: 57-76-4989Uzxnfo identityNot on [facility], ColumbiaSex Female (finding)[facility] Hospitaltart: 52-31-4741PmvEjgmihLRWF HealthcareStart: 89-25-4188Jstzjmj use and exposureSmokeless tobacco non-user [facility] HospitalStart: 60-88-6293Ptvksvz of Social functionI-70 Community Hospital Functional Status TampOtieaynxrcPcawsjFfvopuol19-48-1310Bkmkkfg Health Questionnaire 2 item (PHQ- 2) [Reported][facility] Clinical Notes 06-30-2023 to 03-11-2025 Note Date & BefwBldmFysqdqnr32-14-3684 Telephone encounter Note* Telephone Encounter - Porsche Pettit - 03/11/2025 9:18 AM EDT LVM that appointment was canceled and to call the office back to reschedule [facility] HospitalKokqxfqwpv37-08-3649 Miscellaneous Notes* Telephone Encounter - Porsche Pettit - 03/11/2025 9:18 AM EDT LVM that appointment was canceled and to call the office back to reschedule documented in this encounterI-70 Community HospitalZgfurnxbdw11-25-4091 Telephone encounter Note* Telephone Encounter - Porsche Pettit - 03/10/2025 3:39 PM EDT Requesting ov notes be faxed. [phone] (fax) [facility] HospitalMfrksvausx02-97-9573 Miscellaneous Notes* Telephone Encounter - Porsche Pettit - 03/10/2025 3:39 PM EDT Requesting ov notes be faxed. [phone] (fax) documented in this encounterI-70 Community HospitalFbnjohodiw81-25-5064 History of Present illness Narrative* Darian Lindo Rib [place], DO - 03/03/2025 3:00 PM EDT Images from the original note were not included. [facility] ARUN Rogel SUBJECTIVE: HPI: Gogo Carey is a 84 y.o. female who presents with chief complaint of New Patient Pt presents to become [facility]. Prior PCP Dr. Kerr. Pt does not remember if she had her MAWV.Pt notes that she is not able to sleep, she is having some SOB with exercise. Pt's last set of labswas several months ago. I have reviewed and reconciled the history and medication list with the patient today. History of Present Illness The patient presents to [facility], accompanied by her sister. Chronic Insomnia - The last instance of restful sleep occurred a few years ago post-surgery. - Sleep pattern involves intermittent dozing and waking, leading to daytime fatigue. - Concerned about driving due to persistent tiredness. - Prescribed sleep aids have been ineffective. - Has used bzvf-wzv-hofiqkm energy pills (2-3 as needed) and seeks advice on their use. Dental Issues - Dental issues limit her dietary intake, particularly of meat. - Diet consists mainly of scrambled eggs and macaroni and cheese. - Has eliminated soda, now consuming sparkling water and Equate. Blood work was done several weeks ago at [facility]. Her daughter manages her medication regimen, [...] thyroid gland Hyperlipidemia Hypertension documented in this encounterI-70 Community HospitalGbvuapygsk19-38-5280 History of Present illness Narrative* Moe Noyola [...] (Toradol) injection 60 mg documented in this encounterI-70 Community HospitalUihzpzmtlg47-52-9468 History of Present illness Narrative* Moe Noyola [...] 20 tablet; Refill: 0 documented in this encounterI-70 Community HospitalHupksprysu81-42-9779 Hospital Discharge instructions Additional Instructions Please return to emergency department for any new or worrisome symptoms including any return of abdominal pain, vomiting, fever, not not passing gas. Follow-up with your family physician within the next 3 to 5 days. Take stool softeners as directed.[facility] Work Phone: Evaluation noteNo assessment information available [facility] Work Phone: Evaluation note* Diagnosis Cat scratch of hand, right, initial encounter- Primary Cellulitis of finger of right hand documented in this encounter [facility]* Diagnosis Right hand pain- Primary Pain in soft tissues of limb Cat scratch of hand, right, initial encounter Cellulitis of right hand documented in this encounter [facility]* Diagnosis Disorder of thyroid gland- Primary Unspecified disorder of thyroid Mixed incontinence Mixed incontinence urge and stress (male)(female) Mixed anxiety and depressive disorder Dysthymic disorder Mixed hyperlipidemia Primary osteoarthritis, unspecified site [facility] Additional Instructions Make sure you are drinking at least 1 and half liters of water a day. Take Metamucil daily. If you are still constipated take Colace. Still constipated after this take MiraLAX. Talk to your doctor about other pain medication options besides tramadol which may worsen constipation. Follow-up with the PCP for reevaluation 5 7 days.[facility] Work Phone: Hospital Discharge instructions Additional Instructions We gave you a dose of steroids to help with itching. Please try the Atarax for the itching as well as well as for anxiety. Additionally please use MiraLAX daily for your constipation. Please continue following closely with your primary care provider as well as your pin setter. Please return to the emergency department if you develop any worsening or concerning symptoms.[facility] Work Phone: Reason for referral (narrative)No reason for referral information availableMount Carmel [facility] Work [facility]: Summary Purpose Family History Relationship [...] and content) DATE CREATED AUTHOR 10/29/2017 [facility] DATE CREATED AUTHOR AUTHOR'S ORGANIZ ATION 12/07/2020 [facility] DATE CREATED AUTHOR AUTHOR'S ORGANIZ ATION 09/19/2022 [facility] DATE CREATED AUTHOR AUTHOR'S ORGANIZ ATION 11/28/2024 [facility] DATE CREATED AUTHOR AUTHOR'S ORGANIZ ATION 02/28/2025 [facility] DATE CREATED AUTHOR AUTHOR'S ORGANIZ ATION 03/05/2025 [facility] EPIC Care Teams (unrecognized sec tion and content) Team Status: Active Member Role Status Dates Adela Baker , JEWELRY MANAGER-C Primary Care Provider Active Team Status: Inactive Member Role Status Dates Adela Baker , JEWELRY MANAGER-C Primary Care Provider, Referr ing Provider Active Yariel Bautista ProviderActive Team Status: Inactive Member Role Status Dates Adela Baker , JEWELRY MANAGER-C Primary Care Provider Active Arti Pugh ProviderActive Team Status: Inactive Member Role Status Dates Adela Baker , JEWELRY MANAGER-C Primary Care Provider Active Arti Canseco ProviderActive Team Status: Inactive Member Role Status Dates Adela Baker , JEWELRY MANAGER-C Primary Care Provider Active Arti Wilcox ProviderActive Team Status: Inactive Member Role Status Dates Adela Baker , JEWELRY MANAGER-C Primary Care Provider Active Start: March 02, 2023 End: March 02Arti Dunne ProviderActiveStart: March 02, 2023 End: March 02, 2023 Team Status: Inactive Member Role Status Dates Adela Baker , JEWELRY MANAGER-C Primary Care Provider Active Start: May 07, 2023 End: May 07Arti Merino ProviderActiveStart: May 07, 2023 End: May 07, 2023 Team Status: Inactive Member Role Status Dates Adela Baker , JEWELRY MANAGER-C Primary Care Provider Active Start: May 28, 2023 End: May 28, 2023Yariel Simms ProviderActiveStart: May 28, 2023 End: May 28, 2023 Team Status: Inactive Member Role Status Dates Adela Baker , JEWELRY MANAGER-C Primary Care Provider Active Start: June 30, [...] [address] [place] [address] PCP - GeneralFamily Vecxwzaa17/23/25Team MemberRelationshipSpecialtyStart Date End Date Darian Blankenship DO [address] [place] [address] PCP - GeneralFamily Wgjdjjhg09/23/25Team MemberRelationshipSpecialtyStart Date End Date Darian Blankenship DO [address] [place] [address] PCP - GeneralFamily Fhujbodv22/23/25Team MemberRelationshipSpecialtyStart Date End Date Darian Blankenship DO [address] [place] [address] PCP - GeneralFamily Sbbakmds06/23/25 Goals (unrecognized section and content) Goals may [...] (unrecogniz ed section and content) ReasonOnset DateCommentsRecord [id number]/10/2025ReasonOnset DateComments Appointment Naewzws7703/11/2025ReasonCommentsNew Patient FOR RECORDS PERTAINING TO PATIENTS WHO [...] BE BASED ON THE PRIMARY CLINICAL RECORDS. [facility] [employer] [facility]. provides no warranty or guarantee of the accuracy or completeness of information in this document.
[2025-03-14 04:49] VITALS: BMI 39.1
[2025-03-14 04:51] VITALS: BP 162/80; PULSE 69; TEMP 37.2; O2SAT 93
[2025-03-14] MEDS: OXYCODONE HCL 5 MG TABLET PO ×2 (07:44→19:47)
[2025-03-14 07:55] VITALS: BP 144/85; PULSE 73; TEMP 37.2; O2SAT 91
--- NOTE | 2025-03-14 08:00 | CM.NOTE ---
Rounds made with Dr. Guadarrama, discussed with pt plan of care. Discussed with pt need for ortho consult and possible MRI of knee. PT and OT ordered, CM will discuss with therapy NWB status until further testing.
--- NOTE | 2025-03-14 08:15 | CM.NOTE ---
CM spoke with therapy regarding NWB status at this time.
--- NOTE | 2025-03-14 09:07 | PM.HP ---
HPI H&P: HPI History of Present Illness Chief complaint: FALL Narrative: Mrs. Andersen is an 84-year-old female who was brought to the emergency room complaining of left knee pain after she fell down at home as she was trying to stand up. She landed on her left knee. She reports having severe pain in the left knee. Cannot put any weight on it. Previous left knee replacement. Patient denies any head trauma. No abdominal pain. No chest pain. Opioid HPI Opioid Management Most Recent Pain and Opioid Data: Last Pain Scale 10 Today, 07:44 Last Pain Assessment Today, 07:57 Last MAR Pain Assessment Today, 07:44 Last ORT Total Score 1 Today, 05:13 Last ORT Risk Category Low Risk Today, 05:13 Review of Systems ROS Status of ROS 10 or more systems reviewed and unremarkable except as noted in history and below PFSH [facility] Medical History (Updated 03/14/25 @ 09:14 by Jose Guadarrama MD) Hypothyroidism ?E03.9 - Hypothyroidism, unspecified (ICD-10) Hypercholesterolemia ?E78.00 - Pure hypercholesterolemia, unspecified (ICD-10) Sleep apnea ?G47.30 - Sleep apnea, unspecified (ICD-10) Depression ?F32.A - Depression, unspecified (ICD-10) Anxiety ?F41.9 - Anxiety disorder, unspecified (ICD-10) HTN (hypertension) ?I10 - Essential (primary) hypertension (ICD-10) Surgical History (Updated 03/14/25 @ 05:03 by Sammie Lr) History of tonsillectomy ?Z90.89 - Acquired absence of other organs (ICD-10) History of right shoulder replacement ?Z96.611 - Presence of right artificial shoulder joint (ICD-10) H/O: hysterectomy ?Z90.710 - Acquired absence of both cervix and uterus (ICD-10) History of bilateral knee replacement ?Z96.653 - Presence of artificial knee joint, bilateral (ICD-10) Family History (Updated 03/14/25 @ 05:04 by Sammie Lr) Father Family history of CHF (congestive heart failure) Family history of myocardial infarction Mother Family history of cancer Social History (Updated 03/14/25 @ 05:06 by Sammie Lr) Within the past year, how often did you have a drink containing alcohol: never Score interpretation: A score less than 3 is consistent with normal alcohol consumption. 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 Known occupational exposures/hazards: No Highest level of school completed/degree received: high school graduate Do you want help with school or training: No Are you now , , , , never or living with a partner: In a typical week, how many times do you talk on the telephone with family, friends, or neighbors: 3 or more times per week How often do you get together with friends or relatives: 3 or more times per week How often do you attend anabaptism or protestant services: 4 or more times per year Do you belong to any clubs or organizations such as anabaptism groups unions, [employer] or athletic groups, or school groups: no Total score: 2 Score interpretation: A score of greater than or equal to 2 indicates the lowest level of social isolation. Little interest or pleasure in doing things: several days Feeling down, depressed, or hopeless: several days Feel stressed/tense/nervous/anxious/difficulty sleeping: very much Due to disability, difficulty making decisions: No Do you think of yourself as: straight/heterosexual Gender Identity: female Meds Home Medications and Allergies Home Medications ?Medication ?Instructions ?Recorded ?Confirmed ?Type amlodipine 5 mg tablet 5 mg PO DAILY 12/13/22 03/14/25 History simvastatin 20 mg tablet 20 mg PO QPM 12/13/22 03/14/25 History bisacodyl 5 mg tablet,delayed 5 mg PO DAILY #10 tabs 12/02/23 03/14/25 Rx release (Dulcolax (bisacodyl)) [id number]-QA 10 ml PO Q8H PRN cough #118 mL 07/11/24 03/14/25 Rx 2 mg-30 mg-10 mg/5 mL oral syrup (Bromfed DM) citalopram 10 mg tablet 10 mg PO .QD 07/11/24 03/14/25 History levothyroxine 112 mcg tablet 112 mcg PO .ACB 07/11/24 03/14/25 History hydroxyzine HCl 25 mg tablet 25 mg PO BID 03/14/25 03/14/25 History naproxen sodium 550 mg tablet 550 mg PO BIDWM 03/14/25 03/14/25 History trazodone 50 mg tablet 50 mg PO .QHS 03/14/25 03/14/25 History Allergies Allergy/AdvReac Type Severity Reaction Status Date / Time No Known Drug Allergies Allergy Verified 12/02/23 14:40 Exam Narrative Exam Narrative: [pt is awake and alert. oriented to place, time and person, patient is in severe distress. She is crying. HEENT: [place] conjunctiva and NL buccal mucosa Neck: Supple, no tenderness Endocrine: No Thyromegaly. Vascular: No JVD or carotid bruit. Lymphatic: No cervical lymphadenopathy. Chest: CTA no DTP. Heart RRR, no extra sound or murmur. Abd: Soft, no tenderness, no rebound and no rigidity. Increase abd girth therefore clinically I could not exclude the possibility of intra abd mass or organomegaly. LE: No cyanosis or clubbing, no varices or edema. Left knee examination: Mild effusion around the patella. No laceration. No bruising significant pain upon passive or active flexion of the knee. Patient does not have any pain upon passive or active flexion or abduction of the left hip. Neuro: A A O. Nl speech, comprehension and attention. Nl and symetrical motor and tone examination through out. []] Constitutional Vital Signs, click to edit/add: Last Vital Signs Temp 99 F 03/14/25 07:55 Pulse 73 03/14/25 07:55 Resp 20 03/14/25 07:55 BP 144/85 H 03/14/25 07:55 Pulse Ox 91 L 03/14/25 07:55 O2 Del Method Room Air 03/14/25 07:55 Results Labs Labs: Short CBC 03/14/25 Range/Units 00:20 WBC 6.8 (4.0-11.0) 10^3/uL Hgb 14.1 (12.0-16.0) g/dL Hct 42.7 (36.0-48.0) % Plt Count 322 (150-450) 10^3/uL BMP 03/14/25 00:20 Sodium 140 Potassium 4.0 Chloride 105 Carbon Dioxide 26.5 BUN 23.0 H Creatinine 1.01 Glucose 95 Calcium 9.2 Urine 03/14/25 Range/Units 00:12 Urine Color Lt. yellow (YELLOW) Urine Clarity Clear (CLEAR) Urine pH 6.0 (5.0-9.0) Ur Specific Gray 1.010 (1.005-1.025) Urine Protein Negative (NEG/TRACE) mg/dL Urine Glucose (UA) Negative (NEGATIVE) mg/dL Assessment and Plan Assessment and Plan (1) Strain of left knee: (2) Knee contusion: (3) UTI (urinary tract infection): Plan Severe knee contusion with the severe pain X-rays negative for fracture. Patient has replacement. CAT scan rule out occult fracture Ortho consultation Pain management in the form of Tylenol, Celebrex, oxycodone as needed, Dilaudid as needed severe pain. UTI Cultures pending. Continue ceftriaxone Hypertension Resume home amlodipine DVT prophy Lovenox Functional impairment secondary to pain PT OT eval and treatment Consideration for short-term skilled.
[2025-03-14] MEDS: CITALOPRAM HYDROBROMIDE 20 MG TABLET 10 MG PO (09:43)
[2025-03-14] MEDS: AMLODIPINE BESYLATE 5 MG TABLET PO (09:43)
[2025-03-14] MEDS: LEVOTHYROXINE SODIUM 112 MCG TABLET PO (09:43)
[2025-03-14] MEDS: CELECOXIB 100 MG CAPSULE PO ×2 (09:43→22:07)
[2025-03-14] MEDS: HYDROXYZINE HCL 25 MG TABLET PO ×2 (09:44→22:07)
[2025-03-14] MEDS: ENOXAPARIN SODIUM 40 MG/0.4 ML SYRINGE SUBQ (09:44)
--- NOTE | 2025-03-14 10:02 | PM.ORCN ---
History of Present Illness HPI Chief complaint: FALL Narrative: Marcus is an 84-year-old female s/p left total knee arthroplasty who presents to the [facility] after fall and inability to ambulate secondary to left knee pop. Patient was unable to ambulate after her fall. Does endorse left knee pain locates it more medially. Denies any radiation. At rest pain is well-controlled. With motion pain worsens. Denies any numbness or tingling left lower extremity PFSH PFSH Medical History (Updated 03/14/25 @ 09:14 by Jose Guadarrama MD) Hypothyroidism ?E03.9 - Hypothyroidism, unspecified (ICD-10) Hypercholesterolemia ?E78.00 - Pure hypercholesterolemia, unspecified (ICD-10) Sleep apnea ?G47.30 - Sleep apnea, unspecified (ICD-10) Depression ?F32.A - Depression, unspecified (ICD-10) Anxiety ?F41.9 - Anxiety disorder, unspecified (ICD-10) HTN (hypertension) ?I10 - Essential (primary) hypertension (ICD-10) Surgical History (Updated 03/14/25 @ 05:03 by Sammie Lr) History of tonsillectomy ?Z90.89 - Acquired absence of other organs (ICD-10) History of right shoulder replacement ?Z96.611 - Presence of right artificial shoulder joint (ICD-10) H/O: hysterectomy ?Z90.710 - Acquired absence of both cervix and uterus (ICD-10) History of bilateral knee replacement ?Z96.653 - Presence of artificial knee joint, bilateral (ICD-10) Family History (Updated 03/14/25 @ 05:04 by Sammie Lr) Father Family history of CHF (congestive heart failure) Family history of myocardial infarction Mother Family history of cancer Social History (Updated 03/14/25 @ 05:06 by Sammie Lr) Within the past year, how often did you have a drink containing alcohol: never Score interpretation: A score less than 3 is consistent with normal alcohol consumption. 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 Known occupational exposures/hazards: No Highest level of school completed/degree received: high school graduate Do you want help with school or training: No Are you now , , , , never or living with a partner: In a typical week, how many times do you talk on the telephone with family, friends, or neighbors: 3 or more times per week How often do you get together with friends or relatives: 3 or more times per week How often do you attend confucianist or buddhist services: 4 or more times per year Do you belong to any clubs or organizations such as confucianist groups unions, [employer] or athletic groups, or school groups: no Total score: 2 Score interpretation: A score of greater than or equal to 2 indicates the lowest level of social isolation. Little interest or pleasure in doing things: several days Feeling down, depressed, or hopeless: several days Feel stressed/tense/nervous/anxious/difficulty sleeping: very much Due to disability, difficulty making decisions: No Do you think of yourself as: straight/heterosexual Gender Identity: female Meds Home Medications and Allergies Home Medications ?Medication ?Instructions ?Recorded ?Confirmed ?Type amlodipine 5 mg tablet 5 mg PO DAILY 12/13/22 03/14/25 History simvastatin 20 mg tablet 20 mg PO QPM 12/13/22 03/14/25 History bisacodyl 5 mg tablet,delayed 5 mg PO DAILY #10 tabs 12/02/23 03/14/25 Rx release (Dulcolax (bisacodyl)) [id number]-zfswkxujoraccuz-YW 10 ml PO Q8H PRN cough #118 mL 07/11/24 03/14/25 Rx 2 mg-30 mg-10 mg/5 mL oral syrup (Bromfed DM) citalopram 10 mg tablet 10 mg PO .QD 07/11/24 03/14/25 History levothyroxine 112 mcg tablet 112 mcg PO .ACB 07/11/24 03/14/25 History hydroxyzine HCl 25 mg tablet 25 mg PO BID 03/14/25 03/14/25 History naproxen sodium 550 mg tablet 550 mg PO BIDWM 03/14/25 03/14/25 History trazodone 50 mg tablet 50 mg PO .QHS 03/14/25 03/14/25 History Allergies Allergy/AdvReac Type Severity Reaction Status Date / Time No Known Drug Allergies Allergy Verified 12/02/23 14:40 Exam Narrative Exam Narrative: Patient seen evaluated on regular nursing floor. Resting supine position. Alert and oriented conversive Left lower extremity evaluated. Knee immobilizer is removed. Upon inspection well-healed surgical incision from prior TKA is appreciated. There is no abnormal swelling or discoloration noted. She does have tenderness to palpation more along the medial aspect of the knee and the medial retinaculum. She is able to form a straight leg raise. Her motion is limited secondary to pain but does have intact flexion. Gentle arcs of passive motion are benign. No effusion is felt. Knee is stable to varus and valgus stressing although MCL stressing causes discomfort. No abnormal calf tenderness. Foot is warm and well-perfused Constitutional Vital Signs, click to edit/add: Last Vital Signs Temp 99 F 03/14/25 07:55 Pulse 73 03/14/25 07:55 Resp 20 03/14/25 07:55 BP 144/85 H 03/14/25 07:55 Pulse Ox 91 L 03/14/25 07:55 O2 Del Method Room Air 03/14/25 07:55 Results Labs Labs: Abnormal lab results 03/14/25 03/14/25 Range/Units 00:12 00:20 [place] % (Auto) 13.8 H (1.7-12.0) % [place] # (Auto) 0.9 H (0.3-0.8) 10^3/uL BUN 23.0 H (7.0-18.0) mg/dL Est GFR (Non-Af Amer) 52 L (>=60 mL/min/1.73m^2) Ur Leukocyte Esterase Trace A (NEGATIVE) Urine WBC 5-10 A (NONE SEEN) #/HPF Ur Squamous Epith Cells Few A (NONE/RARE) #/LPF Urine Bacteria Moderate A (NONE SEEN) #/HPF H & H 03/14/25 Range/Units 00:20 Hgb 14.1 (12.0-16.0) g/dL Hct 42.7 (36.0-48.0) % All other labs normal. X-rays of the pelvis left hip are reviewed. No acute osseous abnormalities are identified. Mild degenerative changes are noted. X-rays of the left knee are personally reviewed. TKA in appropriate position alignment without any signs of acute change. No acute osseous abnormalities are noted. Assessment and Plan Assessment and Plan (1) Strain of left knee: Assessment and Plan: Marcus presents with MCL strain left knee. At this juncture we have discussed the findings and diagnosis as well as personally reviewed appropriate imaging and performed interpretation of related testing and examination with the patient in office today. Prior medical notes from the ED and history have been reviewed. At this time I would recommend conservative treatment. Patient would benefit from a hinged knee brace which we can obtain when she has an outpatient follow-up. She can continue knee immobilizer for any weightbearing activities at this point and be weightbearing as tolerated with knee immobilizer on. While at rest knee immobilizer can be removed to work on passive/active motion as tolerated. Pain control and PT/OT. We will plan for follow-up 1 to 2 weeks for recheck and to obtain hinged knee brace. The patient has been involved in our cooperative treatment plan and agrees to move forward with treatment at this time. (2) Knee contusion: (3) UTI (urinary tract infection):
[2025-03-14] MEDS: LIDOCAINE 5% PATCH 1 PATCH TOPICAL (11:08)
--- NOTE | 2025-03-14 11:42 | CM.NOTE ---
Medicare Outpatient Observation Notice discussed with pt, pt verbalizes understanding and signs paper. Original given to pt and copy placed on pt's chart.
--- NOTE | 2025-03-14 12:03 | SWNOTE1 ---
AMPARO met with pt and pt's brother, David, in room. Pt lives at home and her daughter stays with her. Pt has a walker and rollator at home. During conversation, pt voiced several times she has never felt this tired. She stated she has her days and night backwards and has been staying up all night. SW did let them both know that therapy did recommend SNF at this time for strengthening. SW asked if therapy went better while wearing the knee immobilizer? They both voiced no. They stated she could not get up due to dizziness. SW asked if pt had been to rehab in the past? Pt was unsure. David felt like she did when she had something done on her knee several years ago. Pt voiced to SW that she felt exhausted at this time. SW asked permission to call her daughter. Pt was alright with SW calling daughter. David asked if there was facilities in [place]? SW did let him know there are 2. David provided SW with Breanna's number. At this time pt was falling asleep. AMPARO called and spoke with pt's daughter, Breanna. SW let her know the recommendations of SNF. Breanna is in agreement and she stated pt has been to [facility] in the past. SW asked where she would like pt to go this time? Breanna was unsure and will call pt's sister to discuss and call SW back.
--- NOTE | 2025-03-14 12:35 | SWNOTE1 ---
SW received a call back from pt's other daugher, Era, and she would like pt to go to [place]. Her and her sister work there and one lives there. Pt also has [employer] services as well. 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 SW did confirm that as of now it is only a short term skilled stay that is recommended. SW did explain that SW will send referral and we will have to wait for insurance to approve her to go. Era voiced understanding. SW to send referral.
--- NOTE | 2025-03-14 13:06 | SWNOTE1 ---
SW called [facility] and no answer from receptonist and no option for admissions. SW did fax referral to admissions fax. Referral included face sheet, ED note, H&P, ortho consult, case management report, PT/OT, nurse notes, labs, diagnostic imaging, and vitals.
--- NOTE | 2025-03-14 13:31 | SWNOTE1 ---
Pt's daughter Era did also let SW know that her PCP did change this week and it is now Kalen Blankenship, DO. SW did call ER registration to have them fix it.
--- NOTE | 2025-03-14 13:47 | CT_ITS ---
The [address] [address] Patient Name: GOGO CAREY MRN: [id number] date: 1940 Sex: F Assigned Patient Location: [place] Current Patient Location: [place] Accession/Order Number: [id number] Exam Date: 03/14/2025 13:44 Report Date: 03/14/2025 20:40 At the request of: BETTY TERRY MD Procedure: CT knee LT wo con CT knee LT wo con 03/14/2025 1:47 PM SIGNS AND SYMPTOMS: Confusion, fall, left knee pain TECHNIQUE: Multidetector CT axial slices of the left knee without IV contrast. Multiplanar reformats were performed and viewed on a separate workstation and reviewed to further define anatomy and possible pathology. CT was performed with one or more of the following dose reduction techniques: Automated exposure control, adjustment of the mA and/or kV according to patient size, or use of iterative reconstruction technique. COMPARISON: 03/14/2025 FINDINGS: There is total left knee arthroplasty hardware without evidence of fracture or hardware complication. There is prepatellar soft tissue swelling. The bones are in anatomic alignment. There is a moderate joint effusion. CT/CT knee LT wo con IMPRESSION: Uncomplicated total left knee arthroplasty. No evidence of fracture or dislocation. There is a moderate joint effusion with prepatellar soft tissue swelling. Impression dictated by: Shamir Worrell M.D. 03/14/2025 8:40 PM Dictation Location: [place] [address] Electronically authenticated by: [id number] Y Date: 03/14/2025 20:40
--- NOTE | 2025-03-14 14:21 | SWNOTE1 ---
AMPARO received a call back from Vanessa at [facility] and she did receive referral and she will review and let SW know.
[2025-03-14 15:19] VITALS: BP 126/69; PULSE 67; TEMP 37.2; O2SAT 91
--- NOTE | 2025-03-14 16:22 | SWNOTE1 ---
SW received a call from Vanessa at [facility] and they are able to accept and will start precert.
[2025-03-14 19:31] VITALS: BP 149/76; PULSE 75; TEMP 37; O2SAT 90
[2025-03-14] MEDS: ATORVASTATIN CALCIUM 10 MG TABLET PO (19:47)
[2025-03-14] MEDS: REMOVE PATCH 1 PATCH TOPICAL (22:07)
[2025-03-15 04:00] VITALS: BP 139/82; PULSE 83; TEMP 36.7; O2SAT 90
[2025-03-15] MEDS: LEVOTHYROXINE SODIUM 112 MCG TABLET PO (05:45)
[2025-03-15 07:43] VITALS: BP 140/78; PULSE 85; TEMP 37.2; O2SAT 91
--- NOTE | 2025-03-15 08:10 | CM.NOTE ---
Rounds made with Dr. Guadarrama, discussed plan of care with pt. Pt will discharge to skilled facility when medically stable.
[2025-03-15] MEDS: ENOXAPARIN SODIUM 40 MG/0.4 ML SYRINGE SUBQ (09:36)
[2025-03-15] MEDS: OXYCODONE HCL 5 MG TABLET PO (09:36)
[2025-03-15] MEDS: AMLODIPINE BESYLATE 5 MG TABLET PO (09:36)
[2025-03-15] MEDS: ACETAMINOPHEN 325 MG TABLET 650 MG PO (09:36)
[2025-03-15] MEDS: CITALOPRAM HYDROBROMIDE 20 MG TABLET 10 MG PO (09:36)
[2025-03-15] MEDS: CELECOXIB 100 MG CAPSULE PO (09:37)
[2025-03-15] MEDS: HYDROXYZINE HCL 25 MG TABLET PO (09:37)
[2025-03-15] MEDS: LIDOCAINE 5% PATCH 1 PATCH TOPICAL (09:48)
--- NOTE | 2025-03-15 10:21 | SWNOTE1 ---
AMPARO received a message from Vanessa at [facility] and pt is approved. AMPARO messaged Dr. Guadarrama to see if pt is medically stable for discharge, awaiting response.
--- NOTE | 2025-03-15 12:00 | PM.DS1 ---
DS: Providers Provider Date of admission: 03/14/25 04:37 Primary care physician: Kalen Blankenship Consults: 03/14/25 Occupational Therapy Eval and Treat Routine Reason for consultation: weakness Physical Therapy Eval and Treat Routine Reason for consultation: weak 03/14/25 09:02 Consult to Orthopedics Routine Consulting Provider: Rush Holley Reason for consultation: Knee contusion DS: Diagnosis Discharge Diagnosis (1) Strain of left knee: (2) Knee contusion: (3) UTI (urinary tract infection): Plan As listed above, below and others that are not listed DS: Summary Hospital Course Hospital Course: Mrs. Andersen is an 85-year-old female who fell down at home and presented with the left knee pain and swelling. Severe knee contusion with the severe pain X-rays negative for fracture. Patient has replacement. CAT scan rule out occult fracture Requested CAT scan which does not show any misalignment of the previously replaced left knee. No evidence of occult fracture. Ortho consultation. Patient was seen by Dr. Mccurdy who recommended knee immobilizer when she is ambulating as tolerated. No surgical intervention. He recommended to remove the immobilizer when sitting or lying down for active and passive exercise, flexion and extension of the knee. Pain management with a combination of Tylenol, oxycodone and Lidoderm as needed as well as Celebrex 100 twice daily as needed. UTI Cultures pending. Continue ceftriaxone Urine culture is coming back positive for 25 colonies of mixed organism. Patient to be discharged home on oral cephalosporin Hypertension Resume home amlodipine DVT prophy Lovenox Functional impairment secondary to pain PT OT eval and treatment Patient was seen by PT OT team and recommended short-term skilled care. Chronic, subacute medical conditions not listed above, abnormal labs and imaging, incidental findings seen on labs and or imaging. These would need to be addressed. Could be addressed later on or in the outpatient setting by PCP collaboration with other needed outpatient providers when time and condition are appropriate. Patient has multiple complex medical issues as listed above and others that are not listed. All appear to be stable. I do not have any clear or strong clinical justification to extend inpatient hospitalization. Patient however will require close and frequent monitoring as well as additional work-up, investigation and therapeutic intervention that could take place from this point on post discharge. That is to prevent relapse, decompensation, rehospitalization and other medical implications.. I instructed patient to ask her primary care doctor to obtain [facility] record entirely to address abnormalities seen on labs and imaging that I have and have not addressed during this hospitalization, follow-up on pending blood work, imaging and pathology is if available and to follow-up on needed medical care in the outpatient setting. Time Spent with Patient Time attestation: Total time spent providing and/or coordinating discharge services: Exam Narrative Exam Narrative: [pt is awake and alert. oriented to place, time and person, patient is in severe distress. She is crying. HEENT: [place] conjunctiva and NL buccal mucosa Neck: Supple, no tenderness Endocrine: No Thyromegaly. Vascular: No JVD or carotid bruit. Lymphatic: No cervical lymphadenopathy. Chest: CTA no DTP. Heart RRR, no extra sound or murmur. Abd: Soft, no tenderness, no rebound and no rigidity. Increase abd girth therefore clinically I could not exclude the possibility of intra abd mass or organomegaly. LE: No cyanosis or clubbing, no varices or edema. Left knee examination: Mild effusion around the patella. No laceration. No bruising significant pain upon passive or active flexion of the knee. Patient does not have any pain upon passive or active flexion or abduction of the left hip. Neuro: A A O. Nl speech, comprehension and attention. Nl and symetrical motor and tone examination through out. []] Constitutional Vital Signs, click to edit/add: Last Vital Signs Temp 99 F 03/15/25 07:43 Pulse 85 03/15/25 07:43 Resp 20 03/15/25 07:43 BP 140/78 03/15/25 07:43 Pulse Ox 91 L 03/15/25 07:43 O2 Del Method Room Air 03/15/25 07:43 Discharge Plan Discharge Disposition: Xfer SNF Condition: Good Discharge Medications: New acetaminophen [Tylenol] 325 mg Tablet 650 mg PO Q6H PRN (Reason: Pain or fever) Qty: 0 0RF lidocaine 5 % Adhesive Patch,Medicated 1 patch topical Q24H Qty: 1 0RF celecoxib 100 mg Capsule 100 mg PO BID PRN (Reason: pain) Qty: 20 0RF oxycodone 5 mg Tablet 5 mg PO Q4H PRN (Reason: Pain) Qty: 15 0RF polyethylene glycol 3350 17 gram Powder In Packet 17 g PO QD PRN (Reason: Constipation) Qty: 0 0RF sennosides-docusate sodium 8.6-50 mg Tablet 1 tab PO QD Qty: 30 0RF cefuroxime axetil 250 mg tablet 250 mg PO BID 5 Days Qty: 10 0RF Continued amlodipine 5 mg tablet 5 mg PO DAILY simvastatin 20 mg tablet 20 mg PO QPM citalopram 10 mg tablet 10 mg PO .QD levothyroxine 112 mcg tablet 112 mcg PO .ACB trazodone 50 mg tablet 50 mg PO .QHS Discontinued bisacodyl [Dulcolax (bisacodyl)] 5 mg tablet,delayed release (DR/EC) 5 mg PO DAILY Qty: 10 0RF sxclannwqhvzlfn-ywvflsoml-DO [Bromfed DM] 2-30-10 mg/5 mL syrup 10 ml PO Q8H PRN (Reason: cough) Qty: 118 0RF hydroxyzine HCl 25 mg tablet 25 mg PO BID naproxen sodium 550 mg tablet 550 mg PO BIDWM Print Language: Chilean Activity Restrictions/Additional Instructions: I may not have addressed or treated all of your medical illnesses or the abnormal blood work or imaging studies during this hospitalization. Please ask your primary care provider to obtain [facility] records entirely to follow up on all of the abnormal physical, laboratory, and imaging findings that I have not addressed. Please return back to the emergency room or seek medical attention if your symptoms worsen or return. Discharging you from [facility] does not mean that your medical care ends here and now. You may still need additional monitoring, work up, investigation, and treatment plan to be handled from this point on by out patient providers including your primary care provider and specialists. For any medication question, please contact your retail pharmacist or your primary care provider. For retirement providers Fall risk Please keep knee immobilizer while ambulating Take off knee immobilizer when she is sitting and laying down for active and passive flexion and extension of the knee. Weightbearing as tolerated with the knee immobilizer on Arrange follow-up with Dr. Moose Ramires orthopedic surgeon BMP and CBC weekly for 2 weeks Thank you. Forms: Portal Instructions Referrals: Moose Ramires, [Physician, Orthopedics]
--- NOTE | 2025-03-15 12:20 | SWNOTE1 ---
Pt is stable for discharge. SW has message out to nurse to see how pt will need transported.
--- NOTE | 2025-03-15 12:44 | SWNOTE1 ---
SW received a call from [facility]. They are pt's current HH and provide senior care care to pt. SW updated them that pt is being discharged to [facility] today for rehab. AMPARO also received a call from Bairon, pt's patient case coordinator from [facility], and SW updated her that pt is going to [facility] today for rehab.
--- NOTE | 2025-03-15 13:46 | SWNOTE1 ---
Pt is discharging to [facility] skilled. Pt is going by [facility] and they will be here around 2:45. Daughter, Era was in agreement with ambulance transport and she is aware of time. AMPARO faxed dc med rec, dc summary, vitals, and PT/OT notes from today to Vanessa in admissions. AMPARO took packet to med surge floor. AMPARO notified pt's nurse and [facility] of discharge time as well. AMPARO placed CRF in nursing mailbox to complete.
--- NOTE | 2025-03-15 14:00 | CM.NOTE ---
CM updated pt regarding D/C to [facility] for skilled therapy.
--- NOTE | 2025-03-15 14:03 | SWNOTE1 ---
SW did complete PASRR online and sent results to Vanessa [facility] and put results in packet.
--- NOTE | 2025-03-15 14:48 | PC.NURSE ---
Attempted to call report to [facility] but left message on nurse / desk answering machine
--- NOTE | 2025-03-15 15:04 | PC.NURSE ---
Tried for second time to call report to [facility].. Left message on voicemail with [facility] number for nurse to call back and receive report
== END 2025-03-15 15:00 ==
LOC: ER 03-14 03:44 → MS 03-14 04:43
PROVIDERS: Admitting Provider Internal Medicine; Emergency Provider Internal Medicine; PCP Family Medicine; Visit Provider Internal Medicine
DX: S80.02XA Contusion of left knee, initial encounter (principal); S86.812A Strain of other muscle(s) and tendon(s) at lower leg level, left leg, initial encounter; S09.90XA Unspecified injury of head, initial encounter; W18.39XA Other fall on same level, initial encounter; N39.0 Urinary tract infection, site not specified; Z96.652 Presence of left artificial knee joint; I10 Essential (primary) hypertension; Z79.899 Other long term (current) drug therapy
CPT/HCPCS: 36415; 70450; 72125; 73502; 73562; 73700; 76376; 80048; 81001; 85025; 87086; 96365; 96366; 96372; 96375; 97162; 97165; 97530; 99285; G0378; J0696; J1650; J2270